=== PATIENT | female | born 1985 | race Caucasian/White ===

== ENCOUNTER → 2021-04-20 13:16 | Outpatient (CLI) | payer BC, SELFPAY ==
--- NOTE | 2021-04-20 13:20 | CT_ITS ---
PROCEDURE: CT ABDOMEN WO CON CLINICAL HISTORY: UMBILICAL HERNIA W/O OBSTUCTION OR GANGRENE COMPARISON: No exams were available for comparison TECHNIQUE: Axial images obtained with sagittal and coronal reformats. All CT scans at the facility use one or more dose reduction, viz: automated exposure control, ma/kV adjustment per patient size (including targeted exams where dose is matched to indication, i.e. head), or iterative reconstruction technique. FINDINGS: Lung bases are clear. The liver, gallbladder, spleen, adrenal glands, and pancreas have an unremarkable appearance. There is a 4 mm nonobstructing stone in the lower pole of the right kidney. The left kidney has an unremarkable appearance. No renal or ureteral calculi. Unremarkable appearing pancreas. Fundus of the uterus is prominent. The entire uterus is not visualized as the study does not include the pelvis. There is a small umbilical hernia containing fat. The orifice of the hernia measures 14 mm in with. There is some minimal stranding of the fat within the hernia. IMPRESSION: Small umbilical hernia containing fat. Right nephrolithiasis Dictated by: José Wallis MD 04/20/2021 17:52 José Wallis MD in OV 04/20/2021 17:52
== END ==
PROVIDERS: PCP Family Medicine; Visit Provider Nurse Practitioner
DX: K42.9 Umbilical hernia without obstruction or gangrene (principal)
CPT/HCPCS: 74150

== ENCOUNTER → 2021-05-27 11:32 | Outpatient (CLI) | payer BC, SELFPAY ==
[2021-05-27 12:25] LABS: Basophils # 0.1 K/mm3 (0-0.2); Basophils % 0.7 % (0.1-2.0); Eosinophils # 0.1 K/mm3 (0.0-0.4); Hematocrit 39.9 % (37.0-47.0); Hemoglobin 11.8 g/dL (12.2-16.2); Lymphocytes # 2.3 K/mm3 (0.7-4.5); Lymphocytes % 34.8 % (10-50); Mean Corpuscular HGB Conc 29.6 g/dL (31.8-35.4); Mean Corpuscular Hemoglobin 23.5 pg (27.0-31.2); Mean Corpuscular Volume 79.4 fl (81-99); Mean Platelet Volume 7.4 fl (7.4-10.4); Monocytes # 0.3 K/mm3 (0.1-1.0); Monocytes % 3.9 % (1.7-9.3); Neutrophils % 58.7 % (37.0-80.0); Platelet Count 454 K/mm3 (142-424); Red Blood Count 5.02 M/mm3 (4.20-5.40); Red Cell Distribution Width 16.4 % (11.5-17.5); White Blood Count 6.7 K/mm3 (4.8-10.8)
[2021-05-27 13:44] LABS: Chloride 106 mmol/L (98-107); Potassium 5.5 mmoL/L (3.5-5.1); Sodium 140 mmol/L (136-145)
[2021-05-27 13:47] LABS: Anion Gap 17.5 mEq/L (5-15); Blood Urea Nitrogen 11 mg/dl (7-17); Carbon Dioxide 22 mmol/L (22.0-30.0); Estimated Glomerular Filt Rate 64 ml/min (>60); GFR (African American) 77 ML/MIN (>60); Glucose 97 mg/dl (74-100)
== END ==
PROVIDERS: Visit Provider Surgery
DX: Z01.812 Encounter for preprocedural laboratory examination (principal); Z11.52 Encounter for screening for COVID-19; U07.1 COVID-19; K42.9 Umbilical hernia without obstruction or gangrene
CPT/HCPCS: 36415; 80048; 85025; C9803; U0003; U0005

== ENCOUNTER 2021-06-20 06:02 | Day surgery (SDC) | payer BC, SELFPAY ==
[2021-05-25 12:48] VITALS: BMI 27.4
[2021-06-16 10:49] VITALS: BMI 27.4
[2021-06-20] VITALS (12 sets, daily range): BP systolic 135–153; BP diastolic 81–102; PULSE 86–103; RESP 12–18; TEMP 36.6–43; O2SAT 90–96
[2021-06-20 07:00] LABS: Urine Pregnancy, HCG Qual. Negative (Negative)
--- NOTE | 2021-06-20 07:12 | HMH.GSHP ---
HPI HPI: Patient is a 35-year-old female referred for umbilical hernia. Patient recently had been and noted umbilical protrusion during her . She unfortunately had miscarriage at 8 months. She had been diagnosed with umbilical hernia during this . She had seen Mercedez Hodgson at the [facility] department and was diagnosed with a hernia after she had undergone CT scan of the abdomen and pelvis which revealed findings of umbilical hernia. Defect measured approximately 14 mm. She would like to pursue repair. She does have some mild epigastric discomfort from the hernia. Of note, she had some dental issues recently arise and is apparently undergoing tooth extraction with ultimate implant placement. [facility] History Medical History: Reports:: Anxiety, Depression Denies:: Cancer, Diabetes Mellitus Type 1, Diabetes Mellitus Type 2, Internal Pacemaker, MRSA, Seizures *Have you ever received a pneumonia vaccine?: No *Have you received a flu vaccine this season?: No Other Medical History: Denies: Blood Transfusion Reaction Laterality Cases: Bilateral: Tonsillectomy Other Surgeries: Yes: Other (oral sx, stents for kidney stones, Left breast mass removed). No: Pacemaker Amputation: No Fractures: No - *Social History Smoking Status: Current every day smoker Alcohol Intake: never Alcohol Intake Frequency:: holidays/special occasions only *Occupational Status:: employed Housing: house Household Members: family *Travel in the last 8 weeks: None - Psychiatric History Pschychiatric History:: Reports:: Anxiety, Depression Family Hx:: No significant family history Review of Systems - Review of Systems Review of systems:: pertinent systems reviewed and negative unless documented below Meds Home Medications Medication Instructions Recorded Confirmed Type Venlafaxine HCl [Effexor XR 75mg 75 mg PO DAILY 02/24/18 06/16/21 History capsule] dextroamphetamine-amphetamine ER 20 mg PO DAILY cap 05/05/21 06/16/21 History 20 mg 24hr capsule,extend release glycopyrrolate 2 mg tablet 2 mg PO QID tab 05/05/21 06/16/21 History loratadine 10 mg tablet 10 mg PO DAILY 05/05/21 06/16/21 History omeprazole 40 mg capsule,delayed 40 mg PO DAILY cap 05/05/21 06/16/21 History release Ciprofloxacin HCl [Ciprofloxacin 250 mg PO BID 06/20/21 06/20/21 History 250mg Tab] lamoTRIgine [Lamictal] 5 mg PO DAILY 06/20/21 06/20/21 History Allergies Allergy/AdvReac Type Severity Reaction Status Date / Time Penicillins Allergy Intermediate Verified 06/16/21 10:49 Exam Vital signs and Labs for Last 24 Hours: Temp Pulse Resp BP Pulse Ox 97.8 F 90 18 135/85 96 06/20/21 06:26 06/20/21 06:26 06/20/21 06:26 06/20/21 06:26 06/20/21 06:26 Laboratory Results - last 24 hr 06/20/21 06:10: Urine HCG, Qual Negative - Constitutional no acute distress - *Routine HEENT Exam Head: Present: normocephalic Eye: Present: EOMI, PERRL ENT: Present: mucous membranes moist - *Routine Neck Exam Present: supple. Absent: lymphadenopathy - *Routine Respiratory Exam Present: CTA bilaterally - *Routine Cardiovascular Exam Present: RRR - *Routine Abdominal Exam Present: soft, normoactive bowel sounds. Absent: tenderness Comments: He has a moderate sized reducible soft umbilical hernia - *Routine Rectal Exam Rectal:: deferred - *Routine Genitalia Exam Genitalia:: deferred - *Routine Extremities Exam Absent: cyanosis, clubbing, edema - *Routine Skin Exam Present: warm. Absent: rash - *Routine Neurological Exam Present: alert, oriented X3 Results - Results Lab Results Last 24 Hours:: Laboratory Results - last 24 hr 06/20/21 06:10: Urine HCG, Qual Negative Assessment and Plan - Assessment and plan all Dx Assessment and Plan for all problems:: Plan for open umbilical hernia repair
--- NOTE | 2021-06-20 07:42 | P.PN_ITS ---
[facility] Anesthesia Checklist - Structural Data Admitted From: Home Planned Operative Procedure/s: umbilical hernia repair Consent for Planned Operative Procedure(s) Verified: Yes - Additional verifications Anesthesia Reactions: No (nausea) Hx Blood Transfusions: No Blood Transfusion Reaction: No - Airway Assessment C-Spine Mobility Assessed: Yes TMJ Mobility Assessed: Yes Dentition: Good Dentition - Neurological Assessment Level of Consciousness: Awake, Alert, Appropriate - Anesthesia Plan Anesthesia Risk discussed: Yes Anesthesia Plan: Verified ASA Class: II Anesthesia Type: General [facility] History I have reviewed the patient's past medical history: Yes Medical History: Reports:: Anxiety, Depression Denies:: Cancer, Diabetes Mellitus Type 1, Diabetes Mellitus Type 2, Internal Pacemaker, MRSA, Seizures *Have you ever received a pneumonia vaccine?: No *Have you received a flu vaccine this season?: No Other Medical History: Denies: Blood Transfusion Reaction Anesthesia experience/problems:: none Laterality Cases: Bilateral: Tonsillectomy Other Surgeries: Yes: Other (oral sx, stents for kidney stones, Left breast mass removed). No: Pacemaker Amputation: No Fractures: No - *Social History Smoking Status: Current every day smoker Alcohol Intake: never Alcohol Intake Frequency:: holidays/special occasions only Substance Use Type: denies use *Occupational Status:: employed Housing: house Household Members: family *Travel in the last 8 weeks: None - Psychiatric History Pschychiatric History:: Reports:: Anxiety, Depression Family Hx:: No significant family history
--- NOTE | 2021-06-20 08:36 | HMH.OPNOTE ---
Date of procedure: 06/20/21 Pre-op Diagnosis:: Umbilical hernia Post-op Diagnosis:: Same Procedure performed:: Open repair of umbilical hernia with placement of medium sized (6.4 cm) Bard ventral Ej mesh Surgeon:: Blaze Walton MD BENDING SHED WORKER:: Sung Morillo Anesthesia: LMA Estimated blood loss (mL): 5 Clinical Note:: Patient is a 35-year-old female referred for umbilical hernia. Patient recently had been and noted umbilical protrusion during her . She unfortunately had miscarriage at 8 months. She had been diagnosed with umbilical hernia during this . She had seen Mercedez Hodgson at the [facility] department and was diagnosed with a hernia after she had undergone CT scan of the abdomen and pelvis which revealed findings of umbilical hernia. Defect measured approximately 14 mm. She would like to pursue repair. She does have some mild epigastric discomfort from the hernia. In the preoperative area patient asked about excising a skin mole immediately below the umbilicus. Operative findings:: She had a small to moderate defect with chronically incarcerated omentum Operative note:: Patient was taken to the operating room. She was positioned in supine position. General anesthesia was induced via LMA. Abdomen was prepped and draped in the standard surgical fashion. Subumbilical incision was made. Dissection was carried down through subcutaneous tissues to the herniated contents. She had chronically incarcerated omentum. This was dissected free from the umbilical subdermis. It was unable to be reduced. Ultimately the herniated contents were freed from the fascial edges using electrocautery and Metzenbaum dissection. Herniated contents were clamped with a hemostat and excised and ligated with 2-0 Vicryl. This was sent off as specimen labeled the herniated contents. Additional excision of herniated fatty tissues were excised ultimately to allow for mesh placement. Medium sized Bard Ventralex mesh measuring 6.4 cm circular was rolled and inserted into the preperitoneal space. Is oriented in the posterior fascial location to cover the defect. The tails of the mesh were sutured superiorly and inferiorly to the fascial edges with 2-0 Prolene sutures. The tails were then cut flush with the fascia. Fascia was closed over the mesh with interrupted 0 Ethibond suture. Local anesthetic was infiltrated. Umbilical subdural S was reapproximated to the underlying fascia with a couple of 2-0 Vicryl sutures. Subdermal tissues were reapproximated with several interrupted 2-0 Vicryl. Skin was closed with Monocryl in a subcuticular fashion. She did have a skin lesion immediately inferior to the incision. This was excised sharply. Small incision was closed with a couple of 5-0 plain gut. Clean dry sterile dressing was applied. Condition: stable Disposition: PACU Specimens:: Herniated contents Skin lesion Complications:: None immediately apparent
--- NOTE | 2021-06-20 08:39 | HMH.ANESI ---
[facility] Anesthesia Record Part I Intake, IV Amount: 1,500 Estimated blood loss (mL): 0 Urine output (mL): 0 Blood Pressure: 142/81 SaO2: 94 Pulse Rate: 88 Respiratory Rate: 12 Temperature: 98.1 F Patient is:: Awake, Stable Stable to PACU at:: 08:35
--- NOTE | 2021-06-20 09:19 | SUR.PHASEI ---
0916- detailed report given to salty de at this time
--- NOTE | 2021-06-21 08:29 | P.PN_ITS ---
[facility] Anesthesia Record Part II Discharge Time: 09:05 Destination: [facility] PACU nurse assessment reviewed?: Yes Patient Condition:: Good Anesthesia Complications:: None Swallowing reflex intact?: Yes Cyanosis?: No Blood Pressure: 145/92 Pulse Rate: 90 Temperature: 98.1 F Mental Status: Alert & Oriented Pain level:: 3 Nausea and/or vomitting:: None Intake, IV Amount: 1,500
[2021-06-21 08:30] VITALS: BP 145/92; PULSE 90; TEMP 36.7
== END 2021-06-20 10:00 | disposition home or self-care (01) ==
LOC: OR 06:03
PROVIDERS: PCP Family Medicine; Visit Provider Surgery
PROC: (CPT 49587; principal; 2021-06-20 07:30)
DX: K42.0 Umbilical hernia with obstruction, without gangrene (principal); F41.9 Anxiety disorder, unspecified; F32.9 Major depressive disorder, single episode, unspecified; Z90.12 Acquired absence of left breast and nipple; Z72.0 Tobacco use; Z88.0 Allergy status to penicillin; Z79.899 Other long term (current) drug therapy
CPT/HCPCS: 49587; 81025; 96374; C1781; J2405

== ENCOUNTER → 2022-05-01 12:06 | Outpatient (CLI) | payer BC, SELFPAY | PROVIDERS: PCP Family Medicine; Visit Provider Nurse Practitioner | DX: R06.00 Dyspnea, unspecified (principal); R07.9 Chest pain, unspecified; R00.2 Palpitations; R53.83 Other fatigue; R60.0 Localized edema; R94.31 Abnormal electrocardiogram [ECG] [EKG]; Z82.49 Family history of ischemic heart disease and other diseases of the circulatory system | CPT/HCPCS: 93270 ==

== ENCOUNTER → 2022-05-17 07:36 | Outpatient (CLI) | payer BC, SELFPAY ==
--- NOTE | 2022-05-17 | CA_ITS ---
APPROVED REPORT Exam: Pharmacologic Technologist: Senait Gomez, Ht: 5 ft 4 in Wt: 168 lbs BSA: 1.82 m2 HR: 80 bpm BP: 132/88 mmHg Rhythm: NSR,LBBB Medical History Medications: Omeprazole,,,,, LoraTADINE,,,,, GlYcopyrrolate,,,,, Allergies: PCN Cardiac Risk Factors: FHX of CAD, Smoking Stress Test Details Test: LEXISCAN HR Resting HR: 87 bpm Max Heart Rate (APMHR): 186.803505 bpm Max HR Achieved: 114 bpm Target HR (85% APMHR): 158.477600 bpm % of APMHR: 61.29 Recovery HR: 98 bpm BP Resting BP: 132.0/88.0 mmHg Max BP: 147.0/73.0 mmHg Recovery BP: 140.0/81.0 mmHg ECG Resting ECG: NSR,LBBB Clinical Exercise duration: 04:03 min Highest Stage Achieved: Exercise capacity: 1.0 METs Stress ECG Conclusion SWITCHED FROM EXERCISE DUE TO LBBB. DURING INFUSION PATIENT HAD SOA,HEAD DISCOMFORT,MILD STOMACH DISCOMFORT AND MILD CHEST PRESSURE. NO ARRHYTHMIAS/ECTOPY. EXAGGERATION OF BASELINE ABNORMALITITES. NON-DIAGNOSTIC LEXISCAN. MYOVIEW IMAGES REPORTED SEPARATELY Test Summary REST . . . . . . . Sitting REST 01:36 . . 87 . 132/ 88 . . Stage 1 . . . . . . . Myoview Injected Stage 1 01:00 . . 108 . . . . Stage 2 01:00 . . 112 . 147/ 73 . . Stage 3 01:00 . . 105 . 130/ 76 . . Stage 4 01:00 . . 101 . . . . Stage 4 01:03 . . 101 . . . Stop exercise at 04:03 RECOVERY 01:00 . . 103 . . . . RECOVERY 02:00 . . 94 . 140/ 81 . . RECOVERY 03:00 . . 93 . 133/ 83 . . RECOVERY 03:20 . . 91 . 133/ 83 . . Electronically signed by : Rob Haynes MD 05/18/2022 09:39:19
--- NOTE | 2022-05-17 07:37 | NM_ITS ---
APPROVED REPORT Exam: Nuclear Stress Test Indication: chest pain..short of breath..fatigue Patient Location: Outpatient Stress Tech: Yadi Patricia HI Tech:LORI Mcmahon RT(R)(N) Ht: 5 ft 4 in Wt: 170 lbs Bra Size: 32c HR: 87 bpm BP: 132/88 mmHg BSA: 1.83 m2 TID: 0.95 BMI: 29.1 History: chest pain..short of breath..fatigue Procedure: Patient received a 0.4 mg of intravenous Lexiscan, resting heart rate 87 bpm, resting blood pressure 132/88 mmHg, with Lexiscan maximum heart rate achived was 114 bpm which is Less than 85 % of the maximum predicted heart rate and blood pressure was 147/73 mmHg. With Lexiscan, patient denied any complaint of chest pain. Electrocardiogram Resting electrocardiogram shows sinus rhythm with a bundle branch block, with Lexiscan there is less than 1.[address] segment depression noted from the baseline EKG. The EKG portion of the Lexiscan is nondiagnostic. Cardiac Stress and Resting SPECT Images: Cardiac Stress and Resting SPECT images were obtained using technetium 99m Myoview 31.7 mCi stress and 10.77 mCi at rest. Gated SPECT for analysis of segmental wall motion and calculation of the ejection fraction also done. Cardiac stress and rest SPECT images show a fixed defect anteroseptally with abnormal septal motion is likely secondary to left bundle branch block, no reversible ischemia seen. Computer derived ejection fraction is 44% with abnormal septal motion. Right ventricle is normal size and contractility. Conclusion: 1. The EKG portion of the Lexiscan is nondiagnostic. 2. No scintigraphic evidence of reversible ischemia seen, a fixed defect anteroseptally is likely secondary to left bundle branch block, computer derived ejection fraction is 44% with abnormal septal motion, right ventricle is normal size and contractility. Electronically signed by : Rob Haynes MD 05/18/2022 09:52:01
--- NOTE | 2022-05-17 07:53 | CA_ITS ---
APPROVED REPORT EXAM: Comprehensive 2D, Doppler, and color-flow Echocardiogram Programming Internship: Teresa Richardson, RCS, RVS Ht: 5 ft 4 in Wt: 168lbs BSA: 1.82 BP: 129/82 mmHg Indications: CP, Abn EKG, Smoker, IVDA, with demise, SOB, Fatigue 2D Dimensions LVDd 5.59 cm LVEF (Visual) 43.60 % LVDs 4.37 cm LA Volume 42.20 mL Aortic Root 2.90 cm LA Volume Index 23.875280 mL/m2 (M/F) 16-34 Left Atrium 3.24 cm LVOT 1.92 cm (M/F) 1.5-2.5 M-Mode Dimensions RVDd 2.22 cm (0.9-2.6) LA Diam 3.55 cm (1.9-4.0) LVDd 5.79 cm (3.5-5.7) Ao Diam 2.73 cm (2.0-3.7) LVDs 4.63 cm (3.5-5.7) IVSd 1.03 cm (0.6-1.1) PWd 0.78 cm (0.6-1.1) EF (Teich) 35.40% EPSs 1.32 cm FS 17.20% EDV (Teich) 153.00 mL TAPSE 1.33 (<1.7) ESV (Teich) 98.80 mL LV Diastology E Decel Time 180.00 (160-240 msec) E/A Ratio 0.89 MED E' 9.10 (< 7 cm/sec) MED A' 5.40 cm/s E'/MED E' Ratio 7.47 (>14) LAT E' 9.30 (<10 cm/sec) LAT A' 6.00 cm/s E/LAT E' Ratio 7.31 (>14) Aortic Valve LVOT Max 91.00 (70-110 cm/s) LVOT VTI 19.20 cm AoV Peak Conrad. 113.00 (50-130 cm/s) AO Peak GR. 5.10 mmHg AO Mean GR. 2.60 (<5 mmHg) AO VTI 19.19 (18-25 cm) ROEL (VTI) 2.90 (2.5-4.5 cm2) Mitral Valve MV A Velocity 76.00 (40-130 cm/s) E/A Ratio 0.89 MV Decel. Time 180.00 (160-240 ms) MV Mean Gr. 1.50 (<2mmHg) MV PHT 53.00 ms Pulmonary Valve PV Peak Velocity 88.00 (50-150 cm/s) Left Ventricle Left atrium is mildly enlarged, left ventricle is normal size, mild concentric left ventricular hypertrophy, estimated ejection fraction 40%, there is abnormal septal motion. Grade 1 diastolic dysfunction seen without tissue Doppler evidence of raise left atrial pressure. Right Ventricle Right atrium and right ventricle are normal size and contractility. Aortic Valve Aortic valve is minimally thickened and fibrosed there is no aortic stenosis or aortic insufficiency. Mitral Valve Mitral valve is grossly normal, there is trace mitral regurgitation. Tricuspid Valve Tricuspid valve is grossly normal, there is trace tricuspid regurgitation tricuspid rotation (inadequate for calculation of the right ventricular systolic pressure. Pulmonic Valve Pulmonic valve is poorly visualized. Great Vessels Aortic root is normal size. Inferior vena cava is normal size with normal inspiratory collapse. Pericardium No significant pericardial effusion noted. Conclusion 1. Mildly enlarged left atrium, normal left ventricular size, mild concentric left ventricular hypertrophy, estimated ejection fraction 40% with abnormal septal motion, grade 1 diastolic dysfunction seen without tissue Doppler evidence of raise left atrial pressure. 2. Trace mitral and tricuspid regurgitation. 3. No significant pericardial effusion. 4. Inferior vena cava is normal 7 normal inspiratory collapse. Electronically signed by : Rob Haynes MD 05/18/2022 10:20:28
== END ==
PROVIDERS: PCP Family Medicine; Visit Provider Internal Medicine
DX: R06.00 Dyspnea, unspecified (principal); R07.9 Chest pain, unspecified; K42.9 Umbilical hernia without obstruction or gangrene; N23 Unspecified renal colic; R53.83 Other fatigue; R60.0 Localized edema; R94.31 Abnormal electrocardiogram [ECG] [EKG]; Z82.49 Family history of ischemic heart disease and other diseases of the circulatory system
CPT/HCPCS: 78452; 93017; 93306; A9502; J2785

== ENCOUNTER → 2022-05-30 09:53 | Outpatient (CLI) | payer BC, SELFPAY ==
[2022-05-30 10:50] LABS: Basophils # 0.1 K/mm3 (0-0.2); Basophils % 1.2 % (0.1-2.0); Eosinophils # 0.2 K/mm3 (0.0-0.4); Eosinophils % 2.8 % (0.1-12.0); Hematocrit 43.1 % (37.0-47.0); Lymphocytes # 1.8 K/mm3 (0.7-4.5); Mean Corpuscular HGB Conc 32.6 g/dL (31.8-35.4); Mean Corpuscular Hemoglobin 28.5 pg (27.0-31.2); Mean Corpuscular Volume 87.3 fl (81-99); Mean Platelet Volume 8.4 fl (7.4-10.4); Monocytes # 0.3 K/mm3 (0.1-1.0); Monocytes % 5.1 % (1.7-9.3); Neutrophils # 3.2 K/mm3 (1.8-7.8); Neutrophils % 57.8 % (37.0-80.0); Platelet Count 324 K/mm3 (142-424); Red Blood Count 4.93 M/mm3 (4.20-5.40); Red Cell Distribution Width 12.3 % (11.5-17.5); White Blood Count 5.5 K/mm3 (4.8-10.8)
[2022-05-30 12:13] LABS: Anion Gap 13.1 mEq/L (5-15); Blood Urea Nitrogen 14 mg/dl (7-17); Carbon Dioxide 26 mmol/L (22.0-30.0); Chloride 105 mmol/L (98-107); Estimated Glomerular Filt Rate 72 ml/min (>60); GFR (African American) 87 ML/MIN (>60); Glucose 90 mg/dl (74-100); Potassium 4.1 mmoL/L (3.5-5.1); Sodium 140 mmol/L (136-145)
== END ==
PROVIDERS: PCP Family Medicine; Visit Provider Physician Assistant
DX: R06.00 Dyspnea, unspecified (principal); I42.9 Cardiomyopathy, unspecified; R53.83 Other fatigue; R60.0 Localized edema; I10 Essential (primary) hypertension; R93.1 Abnormal findings on diagnostic imaging of heart and coronary circulation; R94.31 Abnormal electrocardiogram [ECG] [EKG]; R94.39 Abnormal result of other cardiovascular function study; Z82.49 Family history of ischemic heart disease and other diseases of the circulatory system; Z01.812 Encounter for preprocedural laboratory examination; Z20.822 Contact with and (suspected) exposure to COVID-19
CPT/HCPCS: 36415; 80048; 85025; C9803; U0003; U0005

== ENCOUNTER → 2022-06-04 14:46 | Outpatient (CLI) | payer BC, SELFPAY ==
--- NOTE | 2022-06-04 15:41 | PC.NURSE ---
PFT completed without complications. Albuterol 0.083% given via HHN, per protocol, Pt tolerated tx well.
== END ==
PROVIDERS: PCP Family Medicine; Visit Provider Physician Assistant
DX: R06.09 Other forms of dyspnea (principal)
CPT/HCPCS: 94060; 94726; 94729

== ENCOUNTER → 2022-06-05 13:09 | Outpatient (CLI) | payer BC, SELFPAY ==
[2022-06-05 13:22] LABS: MANUAL DIFFERENTIAL MANUAL DIFFERENTIAL (MANUAL DIFF)
[2022-06-05 14:21] LABS: Basophils # 0.2 K/mm3 (0-0.2); Basophils % 2.3 % (0.1-2.0); Eosinophils # 0.2 K/mm3 (0.0-0.4); Eosinophils % 2.9 % (0.1-12.0); Hemoglobin 14.2 g/dL (12.2-16.2); Lymphocytes % 27.9 % (10-50); Mean Corpuscular HGB Conc 32.3 g/dL (31.8-35.4); Mean Corpuscular Hemoglobin 28.5 pg (27.0-31.2); Mean Corpuscular Volume 88.4 fl (81-99); Mean Platelet Volume 8.4 fl (7.4-10.4); Monocytes # 0.3 K/mm3 (0.1-1.0); Monocytes % 4.3 % (1.7-9.3); Neutrophils # 4.4 K/mm3 (1.8-7.8); Neutrophils % 62.6 % (37.0-80.0); Platelet Count 341 K/mm3 (142-424); Red Blood Count 4.98 M/mm3 (4.20-5.40); Red Cell Distribution Width 12.4 % (11.5-17.5); White Blood Count 7.1 K/mm3 (4.8-10.8)
[2022-06-05 16:32] LABS: Anion Gap 14.2 mEq/L (5-15); Blood Urea Nitrogen 9 mg/dl (7-17); Calcium 8.9 mg/dl (8.4-10.2); Carbon Dioxide 27 mmol/L (22.0-30.0); Chloride 101 mmol/L (98-107); Estimated Glomerular Filt Rate 96 ml/min (>60); GFR (African American) 116 ML/MIN (>60); Glucose 95 mg/dl (74-100); Potassium 4.2 mmoL/L (3.5-5.1); Sodium 138 mmol/L (136-145)
[2022-06-05 18:30] LABS: Eosinophils % 2 % (0-3); Lymphocytes % 22 % (10-50); Monocytes % 2 % (2-9); Neutrophils % 74 % (42-76); Total Cells Counted 100
[2022-06-05 18:31] LABS: Ovalocytes 1+; Platelet Estimate Normal
== END ==
PROVIDERS: PCP Family Medicine; Visit Provider Internal Medicine
DX: Z01.812 Encounter for preprocedural laboratory examination (principal); Z20.822 Contact with and (suspected) exposure to COVID-19; R06.09 Other forms of dyspnea
CPT/HCPCS: 36415; 80048; 85007; 85014; 85018; 85048; 85049; C9803; U0003; U0005

== ENCOUNTER 2022-06-06 08:28 | Day surgery (SDC) | payer BC, SELFPAY ==
[2022-06-06] VITALS (12 sets, daily range): BP systolic 109–136; BP diastolic 65–96; PULSE 56–74; RESP 16–20; TEMP 36.9; O2SAT 95–100; BMI 27.8
--- NOTE | 2022-06-06 07:14 | IR_ITS ---
APPROVED REPORT Patient Location: Outpatient Take Out Waiter: LORI Peña RT (R) PROCEDURES Left heart catheterization Left ventriculogram Selective coronary angiogram INDICATION New onset cardiomyopathy ejection fraction less than 40% Informed consent was obtained prior to the procedure. COMPLICATIONS none Estimated Blood Loss: less than 10 ml TECHNIQUE One percent lidocaine used to anesthetize the right anterior aspect of the wrist. The right radial artery was accessed via the Seldinger technique. A 6 Macedonian sheath was placed in the right radial artery. 2.5 mg of verapamil, 800 mcg of nitroglycerin, 1mg Lidocaine and 5000 U Heparin were given through the arterial sheath. The papa catheter was also used to perform left heart catheterization, left ventriculogram and selective coronary angiogram. At the end of the procedure the sheath was removed good hemostasis was achieved using Traclet band, patient was transferred to the postop holding area in stable condition. ANGIOGRAPHIC RESULTS The left main artery Normal The left anterior descending artery Normal The circumflex artery Normal The right coronary artery Dominant normal The EVERETT ventriculogram reveals Dilated ventricle ejection fraction 35% The left ventricular end-diastolic pressure 10 to 15 mmHg IMPRESSION Normal coronary arteries Dilated ventricle with reduced ejection fraction Borderline normal LVEDP PLAN 1. Recommend cardiac MRI at [facility] to better evaluate etiology of cardiomyopathy 2. Standard therapy for systolic heart failure Electronically signed by : Braulio Pradhan MD 06/06/2022 10:14:37
[2022-06-06 10:55] LABS: HCG Qualitative, Serum Negative (Negative)
== END 2022-06-06 13:01 | disposition home or self-care (01) ==
LOC: CATHLAB 08:29
PROVIDERS: PCP Family Medicine; Visit Provider Internal Medicine
DX: I42.9 Cardiomyopathy, unspecified (principal); R06.00 Dyspnea, unspecified; R53.83 Other fatigue; R93.1 Abnormal findings on diagnostic imaging of heart and coronary circulation; R94.31 Abnormal electrocardiogram [ECG] [EKG]; R94.39 Abnormal result of other cardiovascular function study; Z82.49 Family history of ischemic heart disease and other diseases of the circulatory system
CPT/HCPCS: 84703; 93458; 99152; C1725; C1769; J1644; Q9967

== ENCOUNTER → 2023-09-13 08:28 | Outpatient (CLI) | payer OTHER, SELFPAY | LOC: LAB.DROPOF 09-14 08:29 | PROVIDERS: PCP Nurse Practitioner Family; Visit Provider Nurse Practitioner Family | DX: R69 Illness, unspecified (principal); J02.9 Acute pharyngitis, unspecified | CPT/HCPCS: 87070 ==

== ENCOUNTER 2023-11-27 09:58 | Observation (INO) | payer OTHER, SELFPAY ==
[2023-11-27] VITALS (14 sets, daily range): BP systolic 131–161; BP diastolic 72–98; PULSE 55–110; RESP 13–26; TEMP 36.4–36.6; O2SAT 92–99; BMI 37.8; BMI 38.5
--- NOTE | 2023-11-27 10:02 | XR_ITS ---
FINAL REPORT CLINICAL HISTORY: soa, CHF FINDINGS: SINGLE-VIEW CHEST The heart size is normal. The mediastinum is normal. There is mild bibasilar atelectasis or pneumonia. There is no pneumothorax. IMPRESSION: Mild bibasilar atelectasis or pneumonia. Reviewed, Interpreted and Dictated by Blaze Rajput III, MD Transcribed by Fiordaliza Monroy Authenticated and [facility]
--- NOTE | 2023-11-27 10:08 | PC.NURSE ---
DR CEDILLO AT BEDSIDE
[2023-11-27 10:17] LABS: Basophils # 0.1 K/mm3 (0-0.2); Basophils % 0.7 % (0.1-2.0); Eosinophils # 0.2 K/mm3 (0.0-0.4); Eosinophils % 2.5 % (0.1-12.0); Hematocrit 33.6 % (37.0-47.0); Hemoglobin 10.7 g/dL (12.2-16.2); Lymphocytes # 1.9 K/mm3 (0.7-4.5); Lymphocytes % 26.9 % (10-50); Mean Corpuscular Hemoglobin 24.9 pg (27.0-31.2); Monocytes # 0.3 K/mm3 (0.1-1.0); Monocytes % 3.9 % (1.7-9.3); Neutrophils # 4.6 K/mm3 (1.8-7.8); Platelet Count 344 K/mm3 (142-424); Red Blood Count 4.31 M/mm3 (4.20-5.40); Red Cell Distribution Width 15.9 % (11.5-17.5)
--- NOTE | 2023-11-27 10:23 | PC.NURSE ---
XR AT BEDSIDE
[2023-11-27 10:24] LABS: Alanine Aminotransferase 38 U/L (12-78); Albumin Level 3.4 g/dl (3.5-5.0); Albumin/Globulin Ratio 1.1 (1.1-1.8); Alkaline Phosphatase 117 U/L (38-126); Anion Gap 10.6 mEq/L (5-15); Aspartate Amino Transferase 35 U/L (14-36); Bilirubin,Total 0.3 mg/dl (0.2-1.3); Blood Urea Nitrogen 14 mg/dl (7-17); Calcium 8.8 mg/dl (8.4-10.2); Carbon Dioxide 23 mmol/L (22.0-30.0); Chloride 109 mmol/L (98-107); Creatinine Clearance Estimated 124 mL/min (50-200); Estimated Glomerular Filt Rate 63 ml/min (>60); GFR (African American) 76 ML/MIN (>60); Glucose 94 mg/dl (74-100); Magnesium 1.9 mg/dl (1.6-2.3); Potassium 4.6 mmoL/L (3.5-5.1); Sodium 138 mmol/L (136-145); Total Protein,Serum 6.4 g/dl (6.3-8.2)
--- NOTE | 2023-11-27 10:32 | ECG_ITS ---
APPROVED REPORT Exam: Resting ECG HR:82 bpm ECG Measurements Heart Rate 82 AXES HI 148 P 29 QRSd 147 QRS -31 QT 422 T 63 QTc 460 Conclusion SINUS RHYTHM LEFT AXIS DEVIATION [QRS AXIS < -30] LEFT BUNDLE BRANCH BLOCK Electronically signed by : ANNETTE CEDILLO, 11/27/2023 15:53:09
[2023-11-27] MEDS: ASPIRIN 81MG CHEWABLE TABLET 324 MG PO (10:35)
[2023-11-27 10:36] LABS: NT Pro Brain Natriuretic Pep. 2040 pg/mL (0-125)
--- NOTE | 2023-11-27 10:36 | HMH.EDCP ---
Discharge Plan Disposition Patient Disposition: Admitted Chief Complaint: Shortness of Breath/Dyspnea Prescriptions Prescriptions: No Action trazodone 50 mg tablet 50 mg PO HS hydroxyzine HCl 50 mg tablet 100 mg PO TID Patient Comments: TAKE 1 TO 2 TABLETS 3 TIMES EACH DAY NEEDED FOR ANXIETY buspirone 30 mg tablet 30 mg PO BID Patient Comments: TAKE 1 TABLET 2 TIMES EACH DAY gabapentin 300 mg capsule 600 mg PO TID Patient Comments: TAKE 2 CAPSULES 3 TIMES EACH DAY lorazepam 1 mg tablet 1 mg PO TID Auvelity 45-105 mg tablet, IR and ER, biphasic 2 tab PO DAILY Patient Comments: TAKE 2 TABLETS EVERY DAY glycopyrrolate 2 mg tablet 2 mg PO QID loratadine [Allergy Relief (loratadine)] 10 mg tablet 10 mg PO DAILY omeprazole 40 mg capsule,delayed release(DR/EC) 40 mg PO DAILY hydroxyzine HCl 50 mg tablet See Rx Instructions .ROUTE .COMPLEX Patient Comments: TAKE 1 TO 2 TABLETS 3 TIMES EACH DAY NEEDED FOR ANXIETY Rx Instructions: TAKE 1 TO 2 TABLETS 3 TIMES EACH DAY NEEDED FOR ANXIETY ferrous sulfate [FeroSul] 325 mg (65 mg iron) tablet 325 mg PO DAILY Patient Comments: TAKE 1 TABLET 1 TIME EACH DAY WITH BREAKFAST docusate sodium 100 mg capsule 100 mg PO BID Patient Comments: TAKE 1 CAPSULE 2 TIMES EACH DAY ibuprofen 600 mg tablet 600 mg PO QIDP PRN (Reason: Pain (Scale Score 4-6)) Patient Comments: TAKE 1 TABLET EVERY 6 HOURS NEEDED FOR MILD PAIN Accrufer 30 mg capsule 30 mg PO DAILY Patient Comments: TAKE 1 CAPSULE BY MOUTH ONCE DAILY Referrals Follow up/Referrals: Sandro Sebastian [Primary Care Provider] - See instructions Clinical Impressions Clinical Impression: cardiomyopathy Discharge ED Provider: Octavio Parra General Chief Complaint: Shortness of Breath/Dyspnea Stated Complaint: SOA Time Seen by Provider: 11/27/23 09:59 Mode of Arrival: Family Vehicle Source of Information: Patient, Spouse and Medical Record Limitations: No Limitations Description of Symptoms (Recalled from ER Triage Doc. by RN): Pt c/o SOA, dyspnea, and panic episode . States she had an induced vaginal delivery < 1 wk ago at [facility] in [place]. States she has been dreaming I can't breathe and I wake up gasping . States my has a video on his phone of me and its just really weird . She reports she had gestational diabetes and was told to stop her diabetic meds. This morning she did take Gabapentin, Ativan, Hydroxyzine, Auvelity, and Buspar. States when she got in the car to come to the ER she felt a lot better . Pt & her reports she has been wheezing in her sleep. History of Present Illness HPI narrative: This is a 37-year-old female with history of nonischemic cardiomyopathy, CHF, gestational diabetes with shortness of breath. Patient states that she had vaginal delivery less than a week ago in [place]. Since that time, she has had multiple dreams where she cannot breathe and states that she wakes up gasping. Her took videos of her and states that it looks like she is not breathing during these episodes. Patient had a history of QUIN in the past, but had her tonsils, adenoids, uvula removed for therapy and has not had any problems with it in years. She states that she had a panic attack this morning, 11/26 because she was concerned that she cannot breathe. She does have difficulty lying flat at baseline, unsure if this is gotten any worse. She states that on the way to the emergency department, symptoms improved, but she is still feeling mildly short of breath. Bilateral lower extremity swelling is a little worse than usual. Denies DVT or PE risk factors, history of clot, chest pain, nausea or vomiting. She has had a nonproductive cough and multiple sick contacts, but no other sick symptoms otherwise. Related Data Home Medications Medication Instructions Recorded Confirmed glycopyrrolate 2 mg tablet 2 mg PO QID . 05/05/21 11/27/23 loratadine 10 mg tablet (Allergy 10 mg PO DAILY allergies 05/05/21 11/27/23 Relief (loratadine)) omeprazole 40 mg capsule,delayed 40 mg PO DAILY GERD 05/05/21 11/27/23 release buspirone 30 mg tablet 30 mg PO BID 09/13/23 11/27/23 dextromethorphan IR 45 2 tab PO DAILY 09/13/23 11/27/23 mg-bupropion ER 105 mg biphasic tablet (Auvelity) gabapentin 300 mg capsule 600 mg PO TID 09/13/23 11/27/23 hydroxyzine HCl 50 mg tablet 100 mg PO TID 09/13/23 11/27/23 lorazepam 1 mg tablet 1 mg PO TID 09/13/23 11/27/23 trazodone 50 mg tablet 50 mg PO HS 09/13/23 11/27/23 docusate sodium 100 mg capsule 100 mg PO BID 11/27/23 11/27/23 ferric maltol 30 mg capsule 30 mg PO DAILY 11/27/23 11/27/23 (Accrufer) ferrous sulfate 325 mg (65 mg 325 mg PO DAILY 11/27/23 11/27/23 iron) tablet (FeroSul) hydroxyzine HCl 50 mg tablet See Rx Instructions .Route .COMPLEX 11/27/23 11/27/23 ibuprofen 600 mg tablet 600 mg PO QIDP PRN Pain (Scale 11/27/23 11/27/23 Score 4-6) Allergies Allergy/AdvReac Type Severity Reaction Status Date / Time Penicillins Allergy Intermediate Verified 10/02/23 11:11 [facility] Disclaimer: The information contained in this section may have been updated after the patient was seen, as this information can be updated by other users. Medical History (Updated 11/27/23 @ 12:29 by Octavio Parra MD) Diabetes mellitus Kidney stone Family history of ischemic heart disease (IHD) Umbilical hernia Surgical History (Updated 10/02/23 @ 11:39 by Julia Beltran) History of renal stent History of oral surgery History of breast biopsy Social History Smoking Status: Unknown if ever smoked alcohol intake: never substance use type: denies use current occupational status: employed Travel in the last 8 weeks: Inside the [place] household members: family housing: house current occupational exposures/hazards: No caffeine: Yes ROS Obtained: Yes All systems reviewed & no additional complaints except as documented Physical Exam General General appearance: alert Neck Neck exam: Present trachea midline Chest Chest inspection: Present normal inspection and symmetric chest wall rise Respiratory Respiratory exam: Present normal lung sounds bilaterally; Absent respiratory distress, wheezes, stridor, accessory muscle use or prolonged expiratory phase Cardiovascular Cardiovascular exam: Present regular rate and normal rhythm Extremities Exam Extremities exam: Absent edema Neurological Exam Neurological exam: Present alert, oriented X3 and CN II-XII intact Skin Skin exam: Present warm and dry; Absent cyanosis, diaphoresis or pallor HEART Score HEART Score HEART Score assessment performed?: Yes History (anamnesis): Moderately suspicious ECG: Non-specific disturbance Age: <45 years Risk factors: 1-2 risk factors Troponin: </= normal limit HEART Score: 3 Critical Care Critical Care Time Critical Care Time: Yes (CV) Attestation: On 11/27/23, the high probability of a clinically significant, sudden or life threatening deterioration of the following system(s) required my full and direct attention, intervention and personal management. The time I documented below is in addition to time spent performing reported procedures but includes the following listed in this critical care notation. Total Time Total Critical Care Time: 45 Medical Decision Making Medical Records Medical records reviewed: Yes I reviewed the patient's medical records. Jaime Inquiry Pt receiving controlled substance: No Jaime was queried for this patient: No Vital Signs Vital Signs: 11/27/23 09:59 11/27/23 10:45 11/27/23 11:00 Temperature 97.7 F Temperature Source Oral Pulse Rate 88 78 Pulse Rate [Right] 93 H Respiratory Rate 26 H 13 14 Blood Pressure 140/89 145/87 H Blood Pressure [Left Arm] 131/85 Blood Pressure Mean 101 Blood Pressure Mean [Left Arm] 100 Blood Pressure Source [Left Arm] Automatic Cuff 02 Sat by Pulse Oximetry 98 97 92 L Oxygen Delivery Method Room Air Room Air 11/27/23 11:15 11/27/23 11:30 11/27/23 11:45 Temperature Temperature Source Pulse Rate 82 84 55 L Pulse Rate [Right] Respiratory Rate 15 16 17 Blood Pressure 131/96 H 148/87 H 140/90 Blood Pressure [Left Arm] Blood Pressure Mean 107 107 102 Blood Pressure Mean [Left Arm] Blood Pressure Source [Left Arm] 02 Sat by Pulse Oximetry 92 L Oxygen Delivery Method 11/27/23 12:00 Temperature Temperature Source Pulse Rate 76 Pulse Rate [Right] Respiratory Rate 17 Blood Pressure 148/86 H Blood Pressure [Left Arm] Blood Pressure Mean 105 Blood Pressure Mean [Left Arm] Blood Pressure Source [Left Arm] 02 Sat by Pulse Oximetry Oxygen Delivery Method Lab Data Labs: Lab Results 11/27/23 10:05: WBC 7.0, RBC 4.31, Hgb 10.7 L, Hct 33.6 L, MCV 78.0 L, MCH 24.9 L, MCHC 32.0, RDW 15.9, Plt Count 344, MPV 8.0, Neut % (Auto) 66.0, Lymph % (Auto) 26.9, Edwards % (Auto) 3.9, Eos % (Auto) 2.5, Baso % (Auto) 0.7, Neut # (Auto) 4.6, Lymph # (Auto) 1.9, Edwards # (Auto) 0.3, Eos # (Auto) 0.2, Baso # (Auto) 0.1, Sodium 138, Potassium 4.6, Chloride 109 H, Carbon Dioxide 23, Anion Gap 10.6, BUN 14, Creatinine 1.00, Estimated Creat Clear 124, Estimated GFR 63, Est GFR ( Amer) 76, Glucose 94, Calcium 8.8, Magnesium 1.9, Total Bilirubin 0.3, AST 35, ALT 38, Alkaline Phosphatase 117, Troponin I < 0.01, NT-Pro-B Natriuret Pep 2040 H, Total Protein 6.4, Albumin 3.4 L, Globulin 3.0, Albumin/Globulin Ratio 1.1, TSH 1.73, Thyroxine (T4) 12.5 H, HCG, Quant 164 H 11/27/23 10:05 11/27/23 10:05 Response Orders (Tests/Meds): ED MEDICATIONS Discontinued Medications Generic Name Dose Route Start Last Admin Trade Name Freq PRN Reason Stop Dose Admin Aspirin 324 mg 11/27/23 10:02 11/27/23 10:35 Aspirin 81mg Chewable Tablet PO 11/27/23 10:03 324 mg ONCE ONE Administration ORDERS Category Date Time Status XR chest portable Stat Exams 11/27/23 10:02 Taken Brain Natriuretic Peptide Stat Lab 11/27/23 10:05 Completed Complete Blood Count Auto Diff Stat Lab 11/27/23 10:05 Completed Comprehensive Metabolic Panel Stat Lab 11/27/23 10:05 Completed HCG,Quantitative Stat Lab 11/27/23 10:05 Completed Magnesium Stat Lab 11/27/23 10:05 Completed T4 (Thyroxine) Stat Lab 11/27/23 10:05 Completed TSH [Thyroid Stimulating Hormone] Stat Lab 11/27/23 10:05 Completed Troponin I Q3H Lab 11/27/23 13:15 Ordered Troponin I Q3H Lab 11/27/23 16:15 Ordered Troponin I Stat Lab 11/27/23 10:05 Completed CA echo doppler complete Stat Y 11/27/23 12:09 Ordered MDM Narrative Medical Decision Narrative: This is a 37-year-old female with history of nonischemic cardiomyopathy, CHF, gestational diabetes with shortness of breath. Patient states that she had vaginal delivery less than a week ago in [place]. Since that time, she has had multiple dreams where she cannot breathe and states that she wakes up gasping. Her took videos of her and states that it looks like she is not breathing during these episodes. Patient had a history of QUIN in the past, but had her tonsils, adenoids, uvula removed for therapy and has not had any problems with it in years. She states that she had a panic attack this morning, 11/26 because she was concerned that she cannot breathe. She does have difficulty lying flat at baseline, unsure if this is gotten any worse. She states that on the way to the emergency department, symptoms improved, but she is still feeling mildly short of breath. Bilateral lower extremity swelling is a little worse than usual. Denies DVT or PE risk factors, history of clot, chest pain, nausea or vomiting. She has had a nonproductive cough and multiple sick contacts, but no other sick symptoms otherwise. History was obtained via conversation with patient. On arrival, patient hemodynamically stable, alert, oriented x4, appropriate, GCS 15, moving all extremities spontaneously, pupils equal and reactive to light. Full physical exam performed and significant for well-appearing no acute distress. Nontachycardic, normotensive, saturating appropriately on room air. Lungs are clear to auscultation bilaterally without wheezes or focal breath sounds. Cardiac exam within normal limits other than 1+ lower extremity bilateral pitting edema. Differential includes cardiomyopathy, pericarditis, pneumonia, bronchitis, ACS, ND, CHF, PE, anxiety, panic, among others. Patient was given 40 mg Lasix, 324 mg aspirin for symptomatic management and correction of underlying abnormalities. Workup independently interpreted and significant for nonactionable CBC or chemistry. Kidney function normal, magnesium normal. LFTs nonactionable. BNP elevated at 2040 with nonactionable thyroid studies. hCG mildly elevated at 164. Chest x-ray with pulmonary venous congestion without overt edema or cardiomegaly. See radiology read for full review of final results. Independent interpretation of EKG shows sinus rhythm 82 beats a minute with no ST or T wave changes concerning for acute ischemia. Patient does have left bundle branch block with left axis deviation and Sgarbossa negative criteria.. Patient placed on continuous cardiac monitoring and continuous pulse ox with initial blood pressure 136/89, heart rate 85, saturation 96 on room air. Heart score 3. Cardiology was contacted and case was discussed at length, they recommended admission for further workup given patient's history. I then called [facility] for potential admission given recent via . OB recommended medicine admission with OB consult. Hospital medicine was contacted and case was discussed at length, graciously excepted admission. Patient to be admitted to hospital medicine for echocardiogram, cardiology and [facility] [facility] consultations. Given patient presentation, workup, history, this most likely represents cardiomyopathy. Because patient high risk for clinical decompensation, deemed appropriate for inpatient admission. Results were relayed to patient who voiced understanding and patient was agreeable to inpatient admission and management. Patient was admitted to the hospital for further definitive management.
[2023-11-27 10:42] LABS: HCG,Quantitative 164 mIU/ml (0-5.42); Troponin I < 0.01 ng/ml (0.00-0.034)
[2023-11-27 11:40] LABS: T4 (Thyroxine) 12.5 ug/dl (5.53-11.0)
[2023-11-27 11:54] LABS: Thyroid Stimulating Hormone 1.73 uIU/mL (0.465-4.68)
--- NOTE | 2023-11-27 12:09 | CA_ITS ---
APPROVED REPORT EXAM: Comprehensive 2D, Doppler, and color-flow Echocardiogram Clin Nurse Spec: Alysa Gamino RT(R) Ht: 5 ft 4 in Wt: 230lbs BSA: 2.08 BP: 131/85 mmHg Indications: 1 week vaginal , SOB, gestational diabetes, previous post CM with prior thought to be takuotsubo, 2D Dimensions LVEF (Harvey's) 22.70 % F: 54 - 74 LV Volume 176.60 mL F: 46 - 106 LV Volume Index 84.9 mL/m2 F: 29 - 61 LA Volume 48.60 mL LA Volume Index 23.37 mL/m2 (M/F) 16-34 EF AP4 26.40 % EF AP2 18.5 % EF BP 22.7 % GL Strain -4.6 % M-Mode Dimensions RVDd 2.26 cm (0.9-2.6) LA Diam 4.04 cm (1.9-4.0) LVDd 6.52 cm (3.5-5.7) LVDs 5.58 cm (3.5-5.7) IVSd 0.87 cm (0.6-1.1) PWd 0.87 cm (0.6-1.1) EF (Teich) 29.90% FS 14.40% EDV (Teich) 217.50 mL ESV (Teich) 152.40 mL LV Diastology E Decel Time 150 (160-240 msec) E/A Ratio 0.3 Mitral Valve MV E Max Conrad. 28.0 (40-130 cm/s) MV A Velocity 102.0 (40-130 cm/s) E/A Ratio 0.28 MV PHT 44.0 ms Tricuspid Valve TR P. Velocity 256.00 cm/s RAP Estimate 10.00 mmHg RVSP 36.30 mmHg Left Ventricle The left ventricle is normal size. There is severe reduction in LV systolic function. There is normal left ventricular wall thickness. Severe global hypokinesis is present. No obvious regional wall motion abnormalities are present. Grade 1 diastolic dysfunction is present. LVEF is 20%. Right Ventricle The right ventricle is normal size. The right ventricular systolic function is normal. Atria The left atrium size is normal. The right atrium size is normal. There is no Doppler evidence of interatrial shunt. Aortic Valve The aortic valve opens well. There is no aortic valvular stenosis. No aortic regurgitation is present. Mitral Valve The mitral valve is normal in structure. No evidence of mitral valve stenosis. Mild mitral regurgitation. Tricuspid Valve The tricuspid valve leaflets are thin and pliable. Trace tricuspid regurgitation. There is insufficient TR jet to estimate RVSP. Pulmonic Valve The pulmonary valve is normal in structure. Trace pulmonic regurgitation. Great Vessels The aortic root is normal in size. The ascending aorta is normal in size. IVC is normal in size and collapses >50% with inspiration. Pericardium There is no pericardial effusion. Other Information Study Quality: Fair Conclusion Severe reduction in LV systolic function (LVEF 20%). Severe global hypokinesis is present. No obvious regional wall motion abnormalities are present. No significant valvular stenosis or regurgitation. Compared to prior study from 2021, the LVEF appears further reduced. Electronically signed by : Mireya Cunningham MD 11/28/2023 01:01:27
--- NOTE | 2023-11-27 12:09 | PC.NURSE ---
DR CEDILLO SPEAKING WITH DR Bhavani VILLANUEVA
--- NOTE | 2023-11-27 12:24 | PC.NURSE ---
DR CEDILLO SPEAKING WITH DR SESAY
--- NOTE | 2023-11-27 12:26 | PC.NURSE ---
PT ACCEPTED BY DR SESAY
[2023-11-27] MEDS: FUROSEMIDE 40MG/4ML VIAL 40 MG IV ×2 (12:32→17:29)
--- NOTE | 2023-11-27 12:35 | PC.NURSE ---
[facility] [employer]INE[employer] NOTIFIED OF ADMISSION
--- NOTE | 2023-11-27 13:03 | PC.NURSE ---
Alysa from Resp to do echo on this pt
--- NOTE | 2023-11-27 13:04 | PC.NURSE ---
They are heading down to do ECHO on patient.
--- NOTE | 2023-11-27 13:16 | HMH.PHAINT1 ---
Pharmacy Intervention Comments: MEDICATION RECONCILIATION COMPLETED ON PATIENT USING EXTERNAL FILL HISTORY FROM PHARMACY. -BRAYAN JAUREGUI, HAKAND
--- NOTE | 2023-11-27 13:49 | PC.NURSE ---
RETURNED FROM ECHO
--- NOTE | 2023-11-27 14:19 | PC.NURSE ---
Gave report to Shelley Kevin RN on Med/Surg
--- NOTE | 2023-11-27 14:38 | PC.NURSE ---
PT UPDATED ON POC AT THIS TIME
[2023-11-27 14:43] LABS: Troponin I < 0.01 ng/ml (0.00-0.034)
--- NOTE | 2023-11-27 15:18 | PC.NURSE ---
arrived to floor at 14:46 by w/c from ED
[2023-11-27] MEDS: ENOXAPARIN 40MG/0.4ML SYRINGE 40 MG SQ (15:39)
--- NOTE | 2023-11-27 15:46 | P.CONCA_ITS ---
History of Present Illness History of Present Illness Consult date: 11/27/23 Requesting physician: Emmanuel Steve Chief complaint: soa History of present illness: 37-year-old white female who is 1 week with past medical history of n onischemic cardiomyopathy with a previous ejection fraction of 40%, , and 1 full-term stillbirth, gestational diabetes, severe anxiety and depression presented to emergency department with complaints of increased shortness of breath, orthopnea and lower extremity edema x 1 week since giving . Patient reports she was induced at 36 weeks due to her gestational diabetes. Patient has a history of nonischemic cardiomyopathy with a previous ejection fraction of 40% in 2021 after stillbirth. Patient reports at that time she underwent a left heart catheterization which was essentially normal and referred to [facility] for cardiac MRI which she had. Patient reports she ended up following up with cardiology in [place] and never got a clear understanding of what was actually going on. Patient reports at one point she was told that her low ejection fraction was secondary to a stress cardiomyopathy and that it had recovered. Upon presentation to emergency department patient was found to be in normal sinus rhythm with a rate of 82 with a left bundle branch block which is old. Labs were as follow: WBC 7, hemoglobin 10.7, sodium 138, potassium 4.6, creatinine 1, serial troponins negative, proBNP 2000. Chest x- ray was concerning for pulmonary venous congestion and Lasix 40 mg IV was given x 1 along with aspirin 324 mg. Patient was admitted for echocardiogram and fur ther evaluation for heart failure. [facility] Disclaimer: The information contained in this section may have been updated after the patient was seen, as this information can be updated by other users. Medical History (Updated 11/27/23 @ 16:18 by Dana Grover APRN) Diabetes mellitus Kidney stone Family history of ischemic heart disease (IHD) Umbilical hernia Surgical History (Updated 10/02/23 @ 11:39 by Julia Beltran) History of renal stent History of oral surgery History of breast biopsy Social History Smoking Status: Unknown if ever smoked alcohol intake: never substance use type: denies use current occupational status: employed Travel in the last 8 weeks: Inside the [place] household members: family housing: house current occupational exposures/hazards: No caffeine: Yes Review of Systems Review of Systems Review of systems:: pertinent systems reviewed and negative unless documented below *Cardiovascular Cardiovascular: Denies chest pain and Reports dyspnea Comments: Lower extremity edema and orthopnea *Respiratory Respiratory: Reports dyspnea Exam Data for Last 24 hours Vital signs and Labs for Last 24 Hours: Temp Pulse Resp BP Pulse Ox O2 Del Method 97.8 F 90 18 144/90 H 98 Room Air 11/27/23 14:44 11/27/23 14:44 11/27/23 14:44 11/27/23 14:44 11/27/23 13:00 11/27/23 14:44 Laboratory Results - last 24 hr 11/27/23 10:05: WBC 7.0, RBC 4.31, Hgb 10.7 L, Hct 33.6 L, MCV 78.0 L, MCH 24.9 L, MCHC 32.0, RDW 15.9, Plt Count 344, MPV 8.0, Neut % (Auto) 66.0, Lymph % (Auto) 26.9, [place] % (Auto) 3.9, Eos % (Auto) 2.5, Baso % (Auto) 0.7, Neut # (Auto) 4.6, Lymph # (Auto) 1.9, [place] # (Auto) 0.3, Eos # (Auto) 0.2, Baso # (Auto) 0.1, Sodium 138, Potassium 4.6, Chloride 109 H, Carbon Dioxide 23, Anion Gap 10.6, BUN 14, Creatinine 1.00, Estimated Creat Clear 124, Estimated GFR 63, Est GFR ( Amer) 76, Glucose 94, Calcium 8.8, Magnesium 1.9, Total Bilirubin 0.3, AST 35, ALT 38, Alkaline Phosphatase 117, Troponin I < 0.01, NT-Pro-B Natriuret Pep 2040 H, Total Protein 6.4, Albumin 3.4 L, Globulin 3.0, Albumin/Globulin Ratio 1.1, TSH 1.73, Thyroxine (T4) 12.5 H, HCG, Quant 164 H 11/27/23 14:06: Troponin I < 0.01 I & O for Last 24 hours: Intake & Output 11/24/23 11/25/23 11/26/23 11/27/23 23:59 23:59 23:59 23:59 Weight 220 lb Constitutional Constitutional: no acute distress *Routine Respiratory Exam Respiratory: Present CTA bilaterally and symmetric chest movement *Routine Cardiovascular Exam Cardiovascular: Present RRR, Normal S1 and Normal S2 *Routine Abdominal Exam Abdominal: Present soft and normoactive bowel sounds; Absent tenderness *Routine Extremities Exam Extremities: Present full ROM and normal capillary refill; Absent edema *Routine Skin Exam Skin: Present intact, dry and warm Detailed Neck Exam: Thyroids Thyroid: Absent bruit Meds Home Medications and Allergies Home Medications Medication Instructions Recorded Confirmed Type glycopyrrolate 2 mg tablet 2 mg PO QID 05/05/21 11/27/23 History loratadine 10 mg tablet (Allergy 10 mg PO DAILY Allergy Symptoms 05/05/21 11/27/23 History Relief (loratadine)) omeprazole 40 mg capsule,delayed 40 mg PO DAILY Acid Reflux 05/05/21 11/27/23 History release buspirone 30 mg tablet 30 mg PO BID Anxiety 09/13/23 11/27/23 History dextromethorphan IR 45 2 tab PO DAILY Mood 09/13/23 11/27/23 History mg-bupropion ER 105 mg biphasic tablet (Auvelity) gabapentin 300 mg capsule 600 mg PO TID Pain 09/13/23 11/27/23 History hydroxyzine HCl 50 mg tablet 100 mg PO TIDP PRN Anxiety 09/13/23 11/27/23 History lorazepam 1 mg tablet 1 mg PO TIDP PRN Anxiety 09/13/23 11/27/23 History trazodone 50 mg tablet 50 mg PO HSP PRN Insomnia 09/13/23 11/27/23 History docusate sodium 100 mg capsule 100 mg PO BID Constipation 11/27/23 11/27/23 History ferrous sulfate 325 mg (65 mg 325 mg PO DAILY Supplement 11/27/23 11/27/23 History iron) tablet (FeroSul) ibuprofen 600 mg tablet 600 mg PO Q6HP PRN Mild Pain 11/27/23 11/27/23 History (Scale Score 1-4) New Prescriptions to Start Prescriptions: Allergies Allergy/AdvReac Type Severity Reaction Status Date / Time Penicillins Allergy Intermediate Verified 10/02/23 11:11 Assessment and Plan *Assessment and plan (1) cardiomyopathy: Status: Acute Category: Medical Code(s): 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 (2) Heart failure with reduced ejection fraction: Status: Acute Category: Medical Code(s): I50.20 - Unspecified systolic (congestive) heart failure (3) Gestational diabetes: Status: Acute Category: Medical Code(s): O24.419 - Gestational diabetes mellitus in , unspecified control (4) Vaginal delivery: Status: Acute Category: Medical Code(s): O80 - Encounter for full-term uncomplicated delivery Plan Acute on chronic HFrEF NYHA III -preliminary echo report shows an estimated EF of 30% -Patient was given Lasix 40 mg IV x 1 in ER and is diuresing -Will continue Lasix 40 mg IV daily -Start Entresto 24/26 mg p.o. 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 Will continue to diurese with Lasix 40 mg IV daily and start Entresto 24/26 mg p.o. twice daily. Will obtain cardiac MRI from [facility]. Official echo read is pending.
[2023-11-27 17:08] LABS: Troponin I < 0.01 ng/ml (0.00-0.034)
--- NOTE | 2023-11-27 17:37 | PC.NURSE ---
A&OX4. TOLERATING RA WELL. AMBULATING INDEPENDENTLY IN ROOM. RECEIVING LASIX PER NOV. DOES HAVE +2 PITTING EDEMA TO BLE. HAS NO NEEDS OR C/O THUS FAR THIS SHIFT. DOES SEEM TO BE VERY ANXIOUS, WITH A HISTORY OF DEPRESSION AND ANXIETY. PT IS ON ANX/DEP MEDICATIONS AT HOME. VSS.
--- NOTE | 2023-11-27 17:43 | P.HP_ITS ---
History of Present Illness *Admission Date: 11/27/23 *Reason for visit:: SOB *History of present illness: Patient is a 37-year-old female who is 1 week presents to the hospital for shortness of breath bilateral lower extremity swelling as well as dyspnea on exertion. Patient mentions she has past medical history of nonischemic cardiomyopathy, she was noted to have an ejection fraction of around 40%. She also had gastrointestinal diabetes. Patient denied chest pain nausea vomiting diarrhea constipation dysuria. Patient mentions her shortness of breath has been getting worse since . [facility] Disclaimer: The information contained in this section may have been updated after the patient was seen, as this information can be updated by other users. Medical History (Updated 11/27/23 @ 16:18 by Dana Grover APRN) Diabetes mellitus Kidney stone Family history of ischemic heart disease (IHD) Umbilical hernia Surgical History (Updated 10/02/23 @ 11:39 by Julia Beltran) History of renal stent History of oral surgery History of breast biopsy Social History Smoking Status: Unknown if ever smoked alcohol intake: never substance use type: denies use current occupational status: employed Travel in the last 8 weeks: [place] the [place] household members: family housing: house current occupational exposures/hazards: No caffeine: Yes Review of Systems Review of Systems Review of systems (narrative): as per [facility] Meds Home Medications and Allergies Home Medications Medication Instructions Recorded Confirmed Type glycopyrrolate 2 mg tablet 2 mg PO QID 05/05/21 11/27/23 History loratadine 10 mg tablet (Allergy 10 mg PO DAILY Allergy Symptoms 05/05/21 11/27/23 History Relief (loratadine)) omeprazole 40 mg capsule,delayed 40 mg PO DAILY Acid Reflux 05/05/21 11/27/23 History release buspirone 30 mg tablet 30 mg PO BID Anxiety 09/13/23 11/27/23 History dextromethorphan IR 45 2 tab PO DAILY Mood 09/13/23 11/27/23 History mg-bupropion ER 105 mg biphasic tablet (Auvelity) gabapentin 300 mg capsule 600 mg PO TID Pain 09/13/23 11/27/23 History hydroxyzine HCl 50 mg tablet 100 mg PO TIDP PRN Anxiety 09/13/23 11/27/23 History lorazepam 1 mg tablet 1 mg PO TIDP PRN Anxiety 09/13/23 11/27/23 History trazodone 50 mg tablet 50 mg PO HSP PRN Insomnia 09/13/23 11/27/23 History docusate sodium 100 mg capsule 100 mg PO BID Constipation 11/27/23 11/27/23 History ferrous sulfate 325 mg (65 mg 325 mg PO DAILY Supplement 11/27/23 11/27/23 History iron) tablet (FeroSul) ibuprofen 600 mg tablet 600 mg PO Q6HP PRN Mild Pain 11/27/23 11/27/23 History (Scale Score 1-4) New Prescriptions to Start Prescriptions: Allergies Allergy/AdvReac Type Severity Reaction Status Date / Time Penicillins Allergy Intermediate Verified 10/02/23 11:11 Exam Data for Last 24 hours Vital signs and Labs for Last 24 Hours: Temp Pulse Resp BP Pulse Ox O2 Del Method 97.5 F L 82 19 142/86 H 97 Room Air 11/27/23 16:00 11/27/23 16:00 11/27/23 16:00 11/27/23 16:00 11/27/23 16:00 11/27/23 17:00 Laboratory Results - last 24 hr 11/27/23 10:05: WBC 7.0, RBC 4.31, Hgb 10.7 L, Hct 33.6 L, MCV 78.0 L, MCH 24.9 L, MCHC 32.0, RDW 15.9, Plt Count 344, MPV 8.0, Neut % (Auto) 66.0, Lymph % (Auto) 26.9, [place] % (Auto) 3.9, Eos % (Auto) 2.5, Baso % (Auto) 0.7, Neut # (Auto) 4.6, Lymph # (Auto) 1.9, [place] # (Auto) 0.3, Eos # (Auto) 0.2, Baso # (Auto) 0.1, Sodium 138, Potassium 4.6, Chloride 109 H, Carbon Dioxide 23, Anion Gap 10.6, BUN 14, Creatinine 1.00, Estimated Creat Clear 124, Estimated GFR 63, Est GFR ( Amer) 76, Glucose 94, Calcium 8.8, Magnesium 1.9, Total Bilirubin 0.3, AST 35, ALT 38, Alkaline Phosphatase 117, Troponin I < 0.01, NT-Pro-B Natriuret Pep 2040 H, Total Protein 6.4, Albumin 3.4 L, Globulin 3.0, Albumin/Globulin Ratio 1.1, TSH 1.73, Thyroxine (T4) 12.5 H, HCG, Quant 164 H 11/27/23 14:06: Troponin I < 0.01 11/27/23 16:28: Troponin I < 0.01 I & O for Last 24 hours: Intake & Output 11/24/23 11/25/23 11/26/23 11/27/23 23:59 23:59 23:59 23:59 Output Total 0 / 0 Balance 0 / 0 Weight 101.746 kg Constitutional Constitutional: no acute distress *Routine HEENT Exam Head: Present normocephalic Eye: Present EOMI and PERRL ENT: Present mucous membranes moist *Routine Neck Exam Neck: Present supple; Absent lymphadenopathy *Routine Respiratory Exam Respiratory: Present CTA bilaterally *Routine Cardiovascular Exam Cardiovascular: Present RRR *Routine Abdominal Exam Abdominal: Present soft and normoactive bowel sounds; Absent tenderness *Routine Rectal Exam Rectal:: deferred *Routine Genitalia Exam Genitalia:: deferred *Routine Extremities Exam Extremities: Absent cyanosis, clubbing or edema *Routine Skin Exam Skin: Present warm; Absent rash *Routine Neurological Exam Neurological: Present alert and oriented X3 Assessment and Plan *Assessment and plan (1) Heart failure with reduced ejection fraction: Status: Acute Category: Medical Code(s): I50.20 - Unspecified systolic (congestive) heart failure (2) cardiomyopathy: Status: Acute Category: Medical Code(s): 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 Plan Patient is a 37-year-old female who is 1 week presents to the hospital for shortness of breath bilateral lower extremity swelling as well as dyspnea on exertion. Patient mentions she has past medical history of nonischemic cardiomyopathy, she was noted to have an ejection fraction of around 40%. She also had gastrointestinal diabetes. Patient denied chest pain nausea vomiting diarrhea constipation dysuria. Patient mentions her shortness of breath has been getting worse since . Assessment and plan Acute on chronic systolic heart failure with reduced ejection fraction 1 week , vaginal delivery at 36 weeks History of gestational diabetes Started on Lasix 40 daily Cardiac echo has been ordered Cardiology consulted Patient has been started on Entresto by cardiology Low-salt diet Daily weights Strict I's and O's Elevated T3 - [place] due to recent Iron Deficiency anemia - continue iron sulphate Hypertension Bipolar disorder PTSD -Continue home buspirone-suspect, Neurontin hydroxyzine trazodone
[2023-11-27] MEDS: HYDROXYZINE HCL 50 MG 100 EACH PO (21:08)
[2023-11-27] MEDS: TRAZODONE 50MG TABLET 50 MG PO (21:08)
[2023-11-27] MEDS: SACUBITRIL/VALSARTAN 24-26MG TABLET 1 EACH PO (21:08)
[2023-11-27] MEDS: LORazepam 1MG TABLET 1 MG PO (21:08)
[2023-11-27] MEDS: GABAPENTIN 300MG CAPSULE 600 MG PO (21:09)
[2023-11-27] MEDS: BUSPIRONE 30 MG 30 EACH PO (21:10)
[2023-11-27] MEDS: TRAZODONE 50MG TABLET 100 MG PO (22:19)
--- NOTE | 2023-11-27 22:22 | PC.NURSE ---
Addendum entered by Pauly Sanches RN 11/28/23 02:18: Patient HR has decreased to WNL. Patient resting more comfortably with additional medication. Original Note: During assessment patient emotional; post- 6 weeks. HR has been >100 and patient states she feels very anxious; has been given Lorazepam, Gabapentin, Trazodone, & Hydroxyzine at 2108; Spoke with provider Romero Maldonado received order for additional trazodone 100mg PO for a total of 150mg this shift. Patient has call light in reach.
[2023-11-28] VITALS (8 sets, daily range): BP systolic 119–160; BP diastolic 72–95; PULSE 75–97; RESP 16–20; TEMP 36.7–37; O2SAT 94–97; BMI 39.9
[2023-11-28 06:54] LABS: Basophils # 0.1 K/mm3 (0-0.2); Eosinophils # 0.2 K/mm3 (0.0-0.4); Eosinophils % 2.8 % (0.1-12.0); Hematocrit 34.8 % (37.0-47.0); Hemoglobin 11.2 g/dL (12.2-16.2); Lymphocytes # 2.5 K/mm3 (0.7-4.5); Lymphocytes % 34.4 % (10-50); Mean Corpuscular HGB Conc 32.2 g/dL (31.8-35.4); Mean Corpuscular Volume 77.4 fl (81-99); Mean Platelet Volume 8.3 fl (7.4-10.4); Monocytes # 0.4 K/mm3 (0.1-1.0); Neutrophils # 4.1 K/mm3 (1.8-7.8); Neutrophils % 56.8 % (37.0-80.0); Platelet Count 340 K/mm3 (142-424); Red Cell Distribution Width 15.7 % (11.5-17.5); White Blood Count 7.2 K/mm3 (4.8-10.8)
[2023-11-28 07:14] LABS: Anion Gap 11.8 mEq/L (5-15); Blood Urea Nitrogen 19 mg/dl (7-17); Calcium 8.2 mg/dl (8.4-10.2); Carbon Dioxide 22 mmol/L (22.0-30.0); Chloride 107 mmol/L (98-107); Creatinine Clearance Estimated 120 mL/min (50-200); Estimated Glomerular Filt Rate 57 ml/min (>60); GFR (African American) 68 ML/MIN (>60); Glucose 89 mg/dl (74-100); Potassium 3.8 mmoL/L (3.5-5.1); Sodium 137 mmol/L (136-145)
[2023-11-28] MEDS: SACUBITRIL/VALSARTAN 24-26MG TABLET 1 EACH PO ×2 (08:52→21:22)
[2023-11-28] MEDS: FERROUS SULFATE 325MG TABLET 325 MG PO (08:52)
[2023-11-28] MEDS: GABAPENTIN 300MG CAPSULE 600 MG PO ×2 (08:53→21:22)
[2023-11-28] MEDS: BUSPIRONE HCL 10 MG TABLET 30 MG PO ×2 (08:53→21:22)
[2023-11-28] MEDS: FUROSEMIDE 40MG/4ML VIAL 40 MG IV (08:53)
[2023-11-28] MEDS: ENOXAPARIN 40MG/0.4ML SYRINGE 40 MG SQ (08:53)
[2023-11-28] MEDS: LORazepam 1MG TABLET 1 MG PO ×3 (09:01→22:39)
[2023-11-28] MEDS: hydrOXYzine pamoate 25MG CAPSULE 100 MG PO ×3 (09:02→22:38)
--- NOTE | 2023-11-28 10:56 | P.PN_ITS ---
Subjective Subjective Date: 11/28/23 Time: 08:00 Principal diagnosis: Volume overload, heart failure with reduced ejection fraction Interval history: Patient doing well this morning, reports lower extremity edema and shortness of breath is improved. Morning labs reviewed and stable Exam Data for Last 24 hours Vital signs and Labs for Last 24 Hours: Temp Pulse Resp BP Pulse Ox O2 Del Method 98.4 F 90 18 160/79 H 96 Room Air 11/28/23 07:59 11/28/23 08:00 11/28/23 07:59 11/28/23 07:59 11/28/23 07:59 11/28/23 09:00 Laboratory Results - last 24 hr 11/27/23 10:05: TSH 1.73, Thyroxine (T4) 12.5 H 11/27/23 14:06: Troponin I < 0.01 11/27/23 16:28: Troponin I < 0.01 11/28/23 06:26: WBC 7.2, RBC 4.50, Hgb 11.2 L, Hct 34.8 L, MCV 77.4 L, MCH 25.0 L, MCHC 32.2, RDW 15.7, Plt Count 340, MPV 8.3, Neut % (Auto) 56.8, Lymph % (Auto) 34.4, [place] % (Auto) 5.0, Eos % (Auto) 2.8, Baso % (Auto) 1.0, Neut # (Auto) 4.1, Lymph # (Auto) 2.5, [place] # (Auto) 0.4, Eos # (Auto) 0.2, Baso # (Auto) 0.1, Sodium 137, Potassium 3.8, Chloride 107, Carbon Dioxide 22, Anion Gap 11.8, BUN 19 H D, Creatinine 1.10 H, Estimated Creat Clear 120, Estimated GFR 57 L, Est GFR ( Amer) 68, Glucose 89, Calcium 8.2 L I & O for Last 24 hours: Intake & Output 11/25/23 11/26/23 11/27/23 11/28/23 23:59 23:59 23:59 23:59 Intake Total 360 / 360 220 / 220 Output Total 0 / 0 0 / 0 Balance 360 / 360 220 / 220 Weight 224 lb 5 oz 234 lb Constitutional Constitutional: no acute distress *Routine Respiratory Exam Respiratory: Present CTA bilaterally and symmetric chest movement *Routine Cardiovascular Exam Cardiovascular: Present RRR, Normal S1 and Normal S2 *Routine Abdominal Exam Abdominal: Present soft and normoactive bowel sounds; Absent tenderness *Routine Extremities Exam Extremities: Present edema, full ROM and normal capillary refill Comments: Lower extremity edema improved *Routine Skin Exam Skin: Present intact, dry and warm Detailed Neck Exam: Thyroids Thyroid: Absent bruit Progress Note: A&P Assessment and plan (1) Heart failure with reduced ejection fraction: Status: Acute (2) cardiomyopathy: Status: Acute Assessment and Plan Assessment and Plan for All Diagnoses:: Acute on chronic HFrEF NYHA III -Echocardiogram 11/28/2023 shows severe reduction in LV systolic function of 20%, severe global hypokinesis present with no obvious regional wall motion abnormalities noted. No significant valvular stenosis or regurgitation present. -Change Lasix from 40 mg IV to 40 mg p.o. -Continue Entresto 24/26 mg p.o. twice daily -Start Aldactone 25 mg and Jardiance 10 mg -Requested medical records from [facility] regarding cardiac MRI -Patient underwent left heart catheterization 05/2022-which revealed normal coronaries -Patient is diuresing well -Will hold on beta-flex at this time given ejection fraction of 20% and acute heart failure symptoms. -Patient will need LifeVest placed prior to discharge. 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 Patient on Entresto 24/26 mg p.o. twice daily. Will add Aldactone 25 mg p.o. daily and Jardiance 10 mg p.o. daily. Bipolar disorder PTSD from full-term stillbirth Anxiety and depression Panic attacks -Defer to primary service CV summary 11/28/2023: Patient patient is CV stable for discharge. Please continue guideline directed medical therapy as listed above. No beta-flex initiated at this time due to severely reduced ejection fraction and acute heart failure. Patient will need LifeVest fitting prior to being discharged. Cardiac meds Lasix 40 mg p.o. daily Entresto 24/26 mg p.o. twice daily Aldactone 25 mg p.o. daily Jardiance 10 mg p.o. daily
--- NOTE | 2023-11-28 11:25 | P.DS_ITS ---
General Admission date:: 11/27/23 Discharge date: 11/28/23 HPI HPI HPI: Patient is a 37-year-old female who is 1 week presents to the hospital for shortness of breath bilateral lower extremity swelling as well as dyspnea on exertion. Patient mentions she has past medical history of nonischemic cardiomyopathy, she was noted to have an ejection fraction of around 40%. She also had gastrointestinal diabetes. Patient denied chest pain nausea vomiting diarrhea constipation dysuria. Patient mentions her shortness of breath has been getting worse since . Hospital Course Hospital Course Hospital Course: Patient was seen and evaluated at the bedside on the day of discharge. Patient wishes to be discharged. All patient questions were answered and patient was given time to ask questions. Patient was discharged in stable condition. Patient understands that she can return to ER in case of any sudden changes in health. Total time spent on DC - 38 mins Patient is a 37-year-old female who is 1 week presents to the hospital for shortness of breath bilateral lower extremity swelling as well as dyspnea on exertion. Patient mentions she has past medical history of nonischemic cardiomyopathy, she was noted to have an ejection fraction of around 40%. She also had gastrointestinal diabetes. Patient denied chest pain nausea vomiting diarrhea constipation dysuria. Assessment and plan Acute on chronic systolic heart failure with reduced ejection fraction - impro popeye 1 week , vaginal delivery at 36 weeks History of gestational diabetes Cardiac meds Lasix 40 mg p.o. daily Entresto 24/26 mg p.o. twice daily Aldactone 25 mg p.o. daily Jardiance 10 mg p.o. daily Follow up with cardiology and NIGHT WAREHOUSE MANAGER as OP and patient was informed Exam Data for Last 24 hours Vital signs and Labs for Last 24 Hours: Temp Pulse Resp BP Pulse Ox O2 Del Method 98.4 F 90 18 160/79 H 96 Room Air 11/28/23 07:59 11/28/23 08:00 11/28/23 07:59 11/28/23 07:59 11/28/23 07:59 11/28/23 09:00 Laboratory Results - last 24 hr 11/27/23 10:05: TSH 1.73, Thyroxine (T4) 12.5 H 11/27/23 14:06: Troponin I < 0.01 11/27/23 16:28: Troponin I < 0.01 11/28/23 06:26: WBC 7.2, RBC 4.50, Hgb 11.2 L, Hct 34.8 L, MCV 77.4 L, MCH 25.0 L, MCHC 32.2, RDW 15.7, Plt Count 340, MPV 8.3, Neut % (Auto) 56.8, Lymph % (Auto) 34.4, [place] % (Auto) 5.0, Eos % (Auto) 2.8, Baso % (Auto) 1.0, Neut # (Auto) 4.1, Lymph # (Auto) 2.5, [place] # (Auto) 0.4, Eos # (Auto) 0.2, Baso # (Auto) 0.1, Sodium 137, Potassium 3.8, Chloride 107, Carbon Dioxide 22, Anion Gap 11.8, BUN 19 H D, Creatinine 1.10 H, Estimated Creat Clear 120, Estimated GFR 57 L, Est GFR ( Amer) 68, Glucose 89, Calcium 8.2 L I & O for Last 24 hours: Intake & Output 11/25/23 11/26/23 11/27/23 11/28/23 23:59 23:59 23:59 23:59 Intake Total 360 / 360 220 / 220 Output Total 0 / 0 0 / 0 Balance 360 / 360 220 / 220 Weight 101.746 kg 106.141 kg Constitutional Constitutional: no acute distress *Routine HEENT Exam Head: Present normocephalic Eye: Present EOMI and PERRL ENT: Present mucous membranes moist *Routine Neck Exam Neck: Present supple; Absent lymphadenopathy *Routine Respiratory Exam Respiratory: Present CTA bilaterally *Routine Cardiovascular Exam Cardiovascular: Present RRR *Routine Abdominal Exam Abdominal: Present soft and normoactive bowel sounds; Absent tenderness *Routine Extremities Exam Extremities: Absent cyanosis, clubbing or edema *Routine Skin Exam Skin: Present warm; Absent rash *Routine Neurological Exam Neurological: Present alert and oriented X3 Results Data Completed and Pending Labs on day of discharge: Labs from last 24 hours 11/28/23 11/27/23 11/27/23 06:26 16:28 14:06 WBC 7.2 RBC 4.50 Hgb 11.2 L Hct 34.8 L MCV 77.4 L MCH 25.0 L MCHC 32.2 RDW 15.7 Plt Count 340 MPV 8.3 Neut % (Auto) 56.8 Lymph % (Auto) 34.4 [place] % (Auto) 5.0 Eos % (Auto) 2.8 Baso % (Auto) 1.0 Neut # (Auto) 4.1 Lymph # (Auto) 2.5 [place] # (Auto) 0.4 Eos # (Auto) 0.2 Baso # (Auto) 0.1 Sodium 137 Potassium 3.8 Chloride 107 Carbon Dioxide 22 Anion Gap 11.8 BUN 19 H D Creatinine 1.10 H Estimated Creat Clear 120 Estimated GFR 57 L Est GFR ( Amer) 68 Glucose 89 Calcium 8.2 L Troponin I < 0.01 < 0.01 TSH Thyroxine (T4) 11/27/23 10:05 WBC RBC Hgb Hct MCV MCH MCHC RDW Plt Count MPV Neut % (Auto) Lymph % (Auto) [place] % (Auto) Eos % (Auto) Baso % (Auto) Neut # (Auto) Lymph # (Auto) [place] # (Auto) Eos # (Auto) Baso # (Auto) Sodium Potassium Chloride Carbon Dioxide Anion Gap BUN Creatinine Estimated Creat Clear Estimated GFR Est GFR ( Amer) Glucose Calcium Troponin I TSH 1.73 Thyroxine (T4) 12.5 H DS: Diagnosis Discharge Diagnosis (1) Heart failure with reduced ejection fraction: Status: Acute Code(s): I50.20 - Unspecified systolic (congestive) heart failure (2) cardiomyopathy: Status: Acute Code(s): 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 Meds Home Medications and Allergies Home Medications Medication Instructions Recorded Confirmed Type glycopyrrolate 2 mg tablet 2 mg PO QID 05/05/21 11/27/23 History loratadine 10 mg tablet (Allergy 10 mg PO DAILY Allergy Symptoms 05/05/21 11/27/23 History Relief (loratadine)) omeprazole 40 mg capsule,delayed 40 mg PO DAILY Acid Reflux 05/05/21 11/27/23 History release buspirone 30 mg tablet 30 mg PO BID Anxiety 09/13/23 11/27/23 History dextromethorphan IR 45 2 tab PO DAILY Mood 09/13/23 11/27/23 History mg-bupropion ER 105 mg biphasic tablet (Auvelity) gabapentin 300 mg capsule 600 mg PO TID Pain 09/13/23 11/27/23 History hydroxyzine HCl 50 mg tablet 100 mg PO TIDP PRN Anxiety 09/13/23 11/27/23 History lorazepam 1 mg tablet 1 mg PO TIDP PRN Anxiety 09/13/23 11/27/23 History trazodone 50 mg tablet 50 mg PO HSP PRN Insomnia 09/13/23 11/27/23 History docusate sodium 100 mg capsule 100 mg PO BID Constipation 11/27/23 11/27/23 History ferrous sulfate 325 mg (65 mg 325 mg PO DAILY Supplement 11/27/23 11/27/23 History iron) tablet (FeroSul) ibuprofen 600 mg tablet 600 mg PO Q6HP PRN Mild Pain 11/27/23 11/27/23 History (Scale Score 1-4) empagliflozin 10 mg tablet 10 mg PO DAILY 30 days #30 tabs 11/28/23 Rx (Jardiance) furosemide 20 mg tablet 40 mg (2 x 20 mg) PO DAILY 30 days 11/28/23 Rx #60 tabs sacubitril 24 mg-valsartan 26 mg 1 tab PO BID 30 days #60 tabs 11/28/23 Rx tablet (Entresto) spironolactone 25 mg tablet 25 mg PO DAILY 30 days #30 tabs 11/28/23 Rx New Prescriptions to Start Prescriptions: empagliflozin [Jardiance] Power,Emmanuel furosemide Power,Emmanuel sacubitril-valsartan [Entresto] Power,Emmanuel spironolactone Power,Emmanuel Allergies Allergy/AdvReac Type Severity Reaction Status Date / Time Penicillins Allergy Intermediate Verified 10/02/23 11:11 Discharge Plan Disposition Patient Disposition: Home, Self-Care Condition: Good Discharge Order Discharge Orders: Discharge Order (Routine); Ordered 11/28/23 Ordered By: Emmanuel Steve Follow up Plan Follow up with: Dana Grover APRN [Nurse Practitioner] - 1 week Braulio Pradhan MD [Staff Physician] - Enter time for follow up Prescriptions/Medication Reconciliation: New spironolactone 25 mg Tablet 25 mg PO DAILY 30 Days Qty: 30 0RF Entresto 24-26 mg Tablet 1 tab PO BID 30 Days Qty: 60 0RF furosemide 20 mg Tablet 40 mg PO DAILY 30 Days Qty: 60 0RF Jardiance 10 mg Tablet 10 mg PO DAILY 30 Days Qty: 30 0RF Continued trazodone 50 mg tablet 50 mg PO HSP PRN (Reason: Insomnia) hydroxyzine HCl 50 mg tablet 100 mg PO TIDP PRN (Reason: Anxiety) Patient Comments: TAKE 1 TO 2 TABLETS 3 TIMES EACH DAY NEEDED FOR ANXIETY buspirone 30 mg tablet 30 mg PO BID Patient Comments: TAKE 1 TABLET 2 TIMES EACH DAY gabapentin 300 mg capsule 600 mg PO TID Patient Comments: TAKE 2 CAPSULES 3 TIMES EACH DAY lorazepam 1 mg tablet 1 mg PO TIDP PRN (Reason: Anxiety) Auvelity 45-105 mg tablet, IR and ER, biphasic 2 tab PO DAILY Patient Comments: TAKE 2 TABLETS EVERY DAY glycopyrrolate 2 mg tablet 2 mg PO QID loratadine [Allergy Relief (loratadine)] 10 mg tablet 10 mg PO DAILY omeprazole 40 mg capsule,delayed release(DR/EC) 40 mg PO DAILY ferrous sulfate [FeroSul] 325 mg (65 mg iron) tablet 325 mg PO DAILY Patient Comments: TAKE 1 TABLET 1 TIME EACH DAY WITH BREAKFAST docusate sodium 100 mg capsule 100 mg PO BID Patient Comments: TAKE 1 CAPSULE 2 TIMES EACH DAY ibuprofen 600 mg tablet 600 mg PO Q6HP PRN (Reason: Mild Pain (Scale Score 1-4)) Patient Comments: TAKE 1 TABLET EVERY 6 HOURS NEEDED FOR MILD PAIN Problem Reconciliation Problems Reviewed?: Yes Patient Discharge Instructions ACTIVITY: Ambulate as tolerated DIET: low salt diet Patient Instructions: DI for Shortness of Breath, How to Manage Shortness of Breath Providers Primary Care Provider: Sandro Sebastian Provider: Emmanuel Steve Attending Provider: Emmanuel Steve
[2023-11-28] MEDS: EMPAGLIFLOZIN 10MG TABLET 10 MG PO (12:07)
[2023-11-28] MEDS: SPIRONOLACTONE 25MG TABLET 25 MG PO (12:07)
[2023-11-28] MEDS: GABAPENTIN 600MG TABLET 600 MG PO (14:26)
[2023-11-28] MEDS: TRAZODONE 50MG TABLET 100 MG PO (22:38)
[2023-11-29] VITALS: BP 112/66; PULSE 81; PULSE 86; RESP 18; TEMP 36.7; O2SAT 99
[2023-11-29 04:00] VITALS: BP 125/76; PULSE 78; RESP 18; TEMP 36.7; O2SAT 94; BMI 37.8
--- NOTE | 2023-11-29 04:07 | PC.NURSE ---
Pt is alert and oriented x4 and currently tolerating RA. Pt current HR is 89, Pt denies pain and has no complaints so far this shift.
[2023-11-29 06:00] VITALS: PULSE 90
[2023-11-29 07:11] LABS: Basophils # 0.1 K/mm3 (0-0.2); Basophils % 0.8 % (0.1-2.0); Eosinophils # 0.1 K/mm3 (0.0-0.4); Eosinophils % 2.1 % (0.1-12.0); Hematocrit 39.3 % (37.0-47.0); Hemoglobin 12.2 g/dL (12.2-16.2); Lymphocytes # 2.5 K/mm3 (0.7-4.5); Lymphocytes % 34.9 % (10-50); Mean Corpuscular HGB Conc 31.1 g/dL (31.8-35.4); Mean Corpuscular Hemoglobin 24.2 pg (27.0-31.2); Mean Corpuscular Volume 77.8 fl (81-99); Monocytes # 0.3 K/mm3 (0.1-1.0); Monocytes % 4.9 % (1.7-9.3); Neutrophils % 57.3 % (37.0-80.0); Platelet Count 376 K/mm3 (142-424); Red Blood Count 5.05 M/mm3 (4.20-5.40); Red Cell Distribution Width 15.8 % (11.5-17.5)
[2023-11-29 07:23] LABS: Anion Gap 9.9 mEq/L (5-15); Calcium 8.6 mg/dl (8.4-10.2); Carbon Dioxide 24 mmol/L (22.0-30.0); Chloride 107 mmol/L (98-107); Glucose 95 mg/dl (74-100); Potassium 3.9 mmoL/L (3.5-5.1); Sodium 137 mmol/L (136-145)
[2023-11-29 07:28] LABS: Blood Urea Nitrogen 18 mg/dl (7-17); Creatinine Clearance Estimated 125 mL/min (50-200); Estimated Glomerular Filt Rate 63 ml/min (>60); GFR (African American) 76 ML/MIN (>60)
[2023-11-29 08:00] VITALS: BP 124/69; PULSE 90; PULSE 95; RESP 27; TEMP 36.7; O2SAT 97
[2023-11-29] MEDS: ENOXAPARIN 40MG/0.4ML SYRINGE 40 MG SQ (09:28)
[2023-11-29] MEDS: FERROUS SULFATE 325MG TABLET 325 MG PO (09:29)
[2023-11-29] MEDS: BUSPIRONE HCL 10 MG TABLET 30 MG PO (09:29)
[2023-11-29] MEDS: SPIRONOLACTONE 25MG TABLET 25 MG PO (09:30)
[2023-11-29] MEDS: LORazepam 1MG TABLET 1 MG PO ×2 (09:30→13:42)
[2023-11-29] MEDS: SACUBITRIL/VALSARTAN 24-26MG TABLET 1 EACH PO (09:30)
[2023-11-29] MEDS: FUROSEMIDE 20MG TABLET 20 MG PO (09:30)
[2023-11-29] MEDS: GABAPENTIN 600MG TABLET 600 MG PO ×2 (09:34→13:43)
--- NOTE | 2023-11-29 09:58 | EXP.DC.SUM ---
General Admission date:: 11/27/23 HPI HPI HPI: Patient is a 37-year-old female who is 1 week presents to the hospital for shortness of breath bilateral lower extremity swelling as well as dyspnea on exertion. Patient mentions she has past medical history of nonischemic cardiomyopathy, she was noted to have an ejection fraction of around 40%. She also had gastrointestinal diabetes. Patient denied chest pain nausea vomiting diarrhea constipation dysuria. Patient mentions her shortness of breath has been getting worse since . Hospital Course Hospital Course Hospital Course: Patient was seen and evaluated at the bedside on the day of discharge. Patient wishes to be discharged. All patient questions were answered and patient was given time to ask questions. Patient was discharged in stable condition. Patient understands that she can return to ER in case of any sudden changes in health. Total time spent on DC - 38 mins Patient is a 37-year-old female who is 1 week presents to the hospital for shortness of breath bilateral lower extremity swelling as well as dyspnea on exertion. Patient mentions she has past medical history of nonischemic cardiomyopathy, she was noted to have an ejection fraction of around 40%. She also had gastrointestinal diabetes. Patient denied chest pain nausea vomiting diarrhea constipation dysuria. Assessment and plan Acute on chronic systolic heart failure with reduced ejection fraction - improved 1 week , vaginal delivery at 36 weeks History of gestational diabetes Cardiac meds Lasix 40 mg p.o. daily Entresto 24/26 mg p.o. twice daily Aldactone 25 mg p.o. daily Jardiance 10 mg p.o. daily Follow up with cardiology and PROPERTY MANAGEMENT INTERN as OP and patient was informed, Life vest per insurance approval, cardiology recommended. Patient is waiting for Lifevest pending insurance approval Exam Data for Last 24 hours Vital signs and Labs for Last 24 Hours: Temp Pulse Resp BP Pulse Ox O2 Del Method 98.1 F 95 H 27 H 124/69 97 Room Air 11/29/23 08:00 11/29/23 08:00 11/29/23 08:00 11/29/23 08:00 11/29/23 08:00 11/29/23 09:00 Laboratory Results - last 24 hr 11/29/23 06:29: WBC 7.0, RBC 5.05, Hgb 12.2, Hct 39.3, MCV 77.8 L, MCH 24.2 L, MCHC 31.1 L, RDW 15.8, Plt Count 376, MPV 8.0, Neut % (Auto) 57.3, Lymph % (Auto) 34.9, [place] % (Auto) 4.9, Eos % (Auto) 2.1, Baso % (Auto) 0.8, Neut # (Auto) 4.0, Lymph # (Auto) 2.5, [place] # (Auto) 0.3, Eos # (Auto) 0.1, Baso # (Auto) 0.1, Sodium 137, Potassium 3.9, Chloride 107, Carbon Dioxide 24, Anion Gap 9.9, BUN 18 H, Creatinine 1.00, Estimated Creat Clear 125, Estimated GFR 63, Est GFR ( Amer) 76, Glucose 95, Calcium 8.6 I & O for Last 24 hours: Intake & Output 11/26/23 11/27/23 11/28/23 11/29/23 23:59 23:59 23:59 23:59 Intake Total 360 / 360 930 / 1410 720 / 720 Output Total 0 / 0 0 / 0 0 / 0 Balance 360 / 360 930 / 1410 720 / 720 Weight 101.746 kg 106.141 kg 100.471 kg Constitutional Constitutional: no acute distress *Routine HEENT Exam Head: Present normocephalic Eye: Present EOMI and PERRL ENT: Present mucous membranes moist *Routine Neck Exam Neck: Present supple; Absent lymphadenopathy *Routine Respiratory Exam Respiratory: Present CTA bilaterally *Routine Cardiovascular Exam Cardiovascular: Present RRR *Routine Abdominal Exam Abdominal: Present soft and normoactive bowel sounds; Absent tenderness *Routine Extremities Exam Extremities: Absent cyanosis, clubbing or edema *Routine Skin Exam Skin: Present warm; Absent rash *Routine Neurological Exam Neurological: Present alert and oriented X3 Results Data Completed and Pending Labs on day of discharge: Labs from last 24 hours 11/29/23 06:29 WBC 7.0 RBC 5.05 Hgb 12.2 Hct 39.3 MCV 77.8 L MCH 24.2 L MCHC 31.1 L RDW 15.8 Plt Count 376 MPV 8.0 Neut % (Auto) 57.3 Lymph % (Auto) 34.9 [place] % (Auto) 4.9 Eos % (Auto) 2.1 Baso % (Auto) 0.8 Neut # (Auto) 4.0 Lymph # (Auto) 2.5 [place] # (Auto) 0.3 Eos # (Auto) 0.1 Baso # (Auto) 0.1 Sodium 137 Potassium 3.9 Chloride 107 Carbon Dioxide 24 Anion Gap 9.9 BUN 18 H Creatinine 1.00 Estimated Creat Clear 125 Estimated GFR 63 Est GFR ( Amer) 76 Glucose 95 Calcium 8.6 DS: Diagnosis Discharge Diagnosis (1) Heart failure with reduced ejection fraction: Status: Acute Code(s): I50.20 - Unspecified systolic (congestive) heart failure (2) cardiomyopathy: Status: Acute Code(s): 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 Meds Home Medications and Allergies Home Medications Medication Instructions Recorded Confirmed Type glycopyrrolate 2 mg tablet 2 mg PO QID 05/05/21 11/27/23 History loratadine 10 mg tablet (Allergy 10 mg PO DAILY Allergy Symptoms 05/05/21 11/27/23 History Relief (loratadine)) omeprazole 40 mg capsule,delayed 40 mg PO DAILY Acid Reflux 05/05/21 11/27/23 History release buspirone 30 mg tablet 30 mg PO BID Anxiety 09/13/23 11/27/23 History dextromethorphan IR 45 2 tab PO DAILY Mood 09/13/23 11/27/23 History mg-bupropion ER 105 mg biphasic tablet (Auvelity) gabapentin 300 mg capsule 600 mg PO TID Pain 09/13/23 11/27/23 History hydroxyzine HCl 50 mg tablet 100 mg PO TIDP PRN Anxiety 09/13/23 11/27/23 History lorazepam 1 mg tablet 1 mg PO TIDP PRN Anxiety 09/13/23 11/27/23 History trazodone 50 mg tablet 50 mg PO HSP PRN Insomnia 09/13/23 11/27/23 History docusate sodium 100 mg capsule 100 mg PO BID Constipation 11/27/23 11/27/23 History ferrous sulfate 325 mg (65 mg 325 mg PO DAILY Supplement 11/27/23 11/27/23 History iron) tablet (FeroSul) ibuprofen 600 mg tablet 600 mg PO Q6HP PRN Mild Pain 11/27/23 11/27/23 History (Scale Score 1-4) empagliflozin 10 mg tablet 10 mg PO DAILY 30 days #30 tabs 11/28/23 Rx (Jardiance) furosemide 20 mg tablet 40 mg (2 x 20 mg) PO DAILY 30 days 11/28/23 Rx #60 tabs sacubitril 24 mg-valsartan 26 mg 1 tab PO BID 30 days #60 tabs 11/28/23 Rx tablet (Entresto) spironolactone 25 mg tablet 25 mg PO DAILY 30 days #30 tabs 11/28/23 Rx New Prescriptions to Start Prescriptions: empagliflozin [Jardiance] Power,Irfan furosemide Power,Irfan sacubitril-valsartan [Entresto] Power,Irfan spironolactone Power,Irfan Allergies Allergy/AdvReac Type Severity Reaction Status Date / Time Penicillins Allergy Intermediate Verified 10/02/23 11:11 Discharge Plan Disposition Patient Disposition: Home, Self-Care Condition: Good Follow up Plan Follow up with: Dana Grover APRN [Nurse Practitioner] - 12/05/23 1:15 pm Sandro Sebasitan [Primary Care Provider] - 12/06/23 11:00 am () Prescriptions/Medication Reconciliation: New spironolactone 25 mg Tablet 25 mg PO DAILY 30 Days Qty: 30 0RF Entresto 24-26 mg Tablet 1 tab PO BID 30 Days Qty: 60 0RF furosemide 20 mg Tablet 40 mg PO DAILY 30 Days Qty: 60 0RF Jardiance 10 mg Tablet 10 mg PO DAILY 30 Days Qty: 30 0RF Continued trazodone 50 mg tablet 50 mg PO HSP PRN (Reason: Insomnia) hydroxyzine HCl 50 mg tablet 100 mg PO TIDP PRN (Reason: Anxiety) Patient Comments: TAKE 1 TO 2 TABLETS 3 TIMES EACH DAY NEEDED FOR ANXIETY buspirone 30 mg tablet 30 mg PO BID Patient Comments: TAKE 1 TABLET 2 TIMES EACH DAY gabapentin 300 mg capsule 600 mg PO TID Patient Comments: TAKE 2 CAPSULES 3 TIMES EACH DAY lorazepam 1 mg tablet 1 mg PO TIDP PRN (Reason: Anxiety) Auvelity 45-105 mg tablet, IR and ER, biphasic 2 tab PO DAILY Patient Comments: TAKE 2 TABLETS EVERY DAY glycopyrrolate 2 mg tablet 2 mg PO QID loratadine [Allergy Relief (loratadine)] 10 mg tablet 10 mg PO DAILY omeprazole 40 mg capsule,delayed release(DR/EC) 40 mg PO DAILY ferrous sulfate [FeroSul] 325 mg (65 mg iron) tablet 325 mg PO DAILY Patient Comments: TAKE 1 TABLET 1 TIME EACH DAY WITH BREAKFAST docusate sodium 100 mg capsule 100 mg PO BID Patient Comments: TAKE 1 CAPSULE 2 TIMES EACH DAY ibuprofen 600 mg tablet 600 mg PO Q6HP PRN (Reason: Mild Pain (Scale Score 1-4)) Patient Comments: TAKE 1 TABLET EVERY 6 HOURS NEEDED FOR MILD PAIN Problem Reconciliation Problems Reviewed?: Yes Patient Discharge Instructions ACTIVITY: Ambulate as tolerated DIET: low salt diet Patient Instructions: DI for Shortness of Breath, How to Manage Shortness of Breath Providers Primary Care Provider: Sandro Sebastian Provider: Emmanuel Steve Attending Provider: Emmanuel Steve
[2023-11-29] MEDS: hydrOXYzine pamoate 25MG CAPSULE 100 MG PO (11:00)
[2023-11-29] MEDS: EMPAGLIFLOZIN 10MG TABLET 10 MG PO (11:00)
--- NOTE | 2023-11-29 11:11 | PC.NURSE ---
Attempted to contact cards at this time about pt's DC plan. At this time insurance has not approved life vest that pt is needing prior to DC.
[2023-11-29 11:32] VITALS: BP 141/85; PULSE 93; RESP 24; TEMP 36.6; O2SAT 99
[2023-11-29 12:00] VITALS: PULSE 95
--- NOTE | 2023-12-04 13:40 | CARE MANAGER ---
Contacted patient related hospital discharge. She states she is aware of follow up appointments and has all new medication. Denies questions or concerns. LUCIA Nunn
== END 2023-11-29 15:45 | disposition home or self-care (01) ==
LOC: ER 12:29 → 2ND 15:11
PROVIDERS: Admitting Provider Internal Medicine; Emergency Provider Emergency Medicine; PCP Family Medicine; Visit Provider Internal Medicine
DX: O90.3 Peripartum cardiomyopathy (principal); E11.9 Type 2 diabetes mellitus without complications; I50.23 Acute on chronic systolic (congestive) heart failure
CPT/HCPCS: 36415; 71045; 80048; 80053; 83735; 83880; 84436; 84443; 84484; 84702; 85025; 93005; 93306; 99291; G0378

== ENCOUNTER 2023-12-05 14:58 | Outpatient (CLI) | payer OTHER, SELFPAY ==
[2023-12-05 15:18] LABS: Basophils # 0.1 K/mm3 (0-0.2); Basophils % 0.9 % (0.1-2.0); Eosinophils # 0.1 K/mm3 (0.0-0.4); Eosinophils % 1.6 % (0.1-12.0); Hematocrit 44.7 % (37.0-47.0); Hemoglobin 13.7 g/dL (12.2-16.2); Lymphocytes # 2.9 K/mm3 (0.7-4.5); Lymphocytes % 33.4 % (10-50); Mean Corpuscular HGB Conc 30.6 g/dL (31.8-35.4); Mean Corpuscular Hemoglobin 24.2 pg (27.0-31.2); Mean Corpuscular Volume 79.2 fl (81-99); Mean Platelet Volume 7.5 fl (7.4-10.4); Monocytes # 0.3 K/mm3 (0.1-1.0); Monocytes % 3.2 % (1.7-9.3); Neutrophils # 5.3 K/mm3 (1.8-7.8); Neutrophils % 61.1 % (37.0-80.0); Platelet Count 419 K/mm3 (142-424); Red Blood Count 5.64 M/mm3 (4.20-5.40); White Blood Count 8.8 K/mm3 (4.8-10.8)
[2023-12-05 15:31] LABS: Chloride 105 mmol/L (98-107)
[2023-12-05 15:32] LABS: Potassium 3.9 mmoL/L (3.5-5.1); Sodium 137 mmol/L (136-145)
[2023-12-05 15:34] LABS: Alanine Aminotransferase 18 U/L (12-78); Alkaline Phosphatase 115 U/L (38-126); Anion Gap 11.9 mEq/L (5-15); Aspartate Amino Transferase 26 U/L (14-36); Bilirubin,Direct 0.2 mg/dl (0.0-0.4); Bilirubin,Indirect 0.1 mg/dL (0.0-0.9); Bilirubin,Total 0.3 mg/dl (0.2-1.3); Blood Urea Nitrogen 18 mg/dl (7-17); Carbon Dioxide 24 mmol/L (22.0-30.0); Estimated Glomerular Filt Rate 40 ml/min (>60); GFR (African American) 48 ML/MIN (>60); Triglycerides 283 mg/dl (30-150); VLDL Cholesterol 57 mg/dL (0-40)
[2023-12-05 15:35] LABS: Albumin Level 4.2 g/dl (3.5-5.0); Calcium 8.8 mg/dl (8.4-10.2); Glucose 103 mg/dl (74-100); HDL Cholesterol 37 mg/dl (40-60); Magnesium 2.2 mg/dl (1.6-2.3); Total Protein,Serum 6.9 g/dl (6.3-8.2)
[2023-12-05 15:46] LABS: Direct LDL Cholesterol 213.22 mg/dL (100-129)
[2023-12-05 15:53] LABS: Chol/HDL Ratio 9.7 (1-3.5); Cholesterol 359 mg/dl (140-200)
[2023-12-05 16:05] LABS: Thyroid Stimulating Hormone 0.69 uIU/mL (0.465-4.68)
[2023-12-05 16:23] LABS: Free T4 (Free Thyroxine) 1.37 ng/dl (0.78-2.19)
== END 2023-12-05 23:59 ==
LOC: LAB 14:59
PROVIDERS: PCP Family Medicine; Visit Provider Internal Medicine
DX: R94.31 Abnormal electrocardiogram [ECG] [EKG] (principal); I42.9 Cardiomyopathy, unspecified; Z79.899 Other long term (current) drug therapy
CPT/HCPCS: 36415; 80048; 80061; 80076; 83735; 84439; 84443; 85025

== ENCOUNTER 2023-12-26 16:02 | Outpatient (CLI) | payer OTHER, SELFPAY ==
[2023-12-26 16:49] LABS: Chloride 107 mmol/L (98-107); Potassium 4.4 mmoL/L (3.5-5.1); Sodium 139 mmol/L (136-145)
[2023-12-26 16:52] LABS: Anion Gap 9.4 mEq/L (5-15); Blood Urea Nitrogen 12 mg/dl (7-17); Carbon Dioxide 27 mmol/L (22.0-30.0); Estimated Glomerular Filt Rate 51 ml/min (>60); GFR (African American) 62 ML/MIN (>60)
[2023-12-26 16:53] LABS: Calcium 9.3 mg/dl (8.4-10.2); Glucose 97 mg/dl (74-100)
== END 2023-12-26 23:59 ==
LOC: LAB 16:02
PROVIDERS: PCP Family Medicine; Visit Provider Nurse Practitioner
DX: R79.89 Other specified abnormal findings of blood chemistry (principal)
CPT/HCPCS: 36415; 80048

== ENCOUNTER 2024-04-08 09:48 | Outpatient (CLI) | payer OTHER, SELFPAY | END 2024-04-08 23:59 | disposition home or self-care (01) | LOC: LAB.DROPOF 04-09 09:49 | PROVIDERS: PCP Family Medicine; Visit Provider Family Medicine | DX: N39.0 Urinary tract infection, site not specified (principal) | CPT/HCPCS: 87086; 87088; 87186 ==

== ENCOUNTER 2024-05-14 15:00 | Outpatient (CLI) | payer BC, SELFPAY ==
--- NOTE | 2024-05-14 15:49 | CA_ITS ---
APPROVED REPORT EXAM: Comprehensive 2D, Doppler, and color-flow Echocardiogram Fur Liner: Alysa Gamino RT(R) Ht: 5 ft 3 in Wt: 180lbs BSA: 1.85 BP: 82/43 mmHg Indications: CM, EF 20% HFrEF echo 11/28/23, hx renal stent, abn EKG, syncope and blurred vision, CP, DM,family history of HD. 2D Dimensions LVEF (Harvey's) 38.50 % F: 54 - 74 LV Volume 93.10 mL F: 46 - 106 LV Volume Index 50.3 mL/m2 F: 29 - 61 LA Volume 14.80 mL LA Volume Index 8.00 mL/m2 (M/F) 16-34 EF AP4 24.50 % EF AP2 49.6 % EF BP 38.5 % GL Strain -7.7 % M-Mode Dimensions RVDd 2.58 cm (0.9-2.6) LA Diam 3.05 cm (1.9-4.0) LVDd 5.01 cm (3.5-5.7) LVDs 4.61 cm (3.5-5.7) IVSd 0.86 cm (0.6-1.1) PWd 0.86 cm (0.6-1.1) EF (Teich) 17.70% FS 8.00% EDV (Teich) 118.80 mL ESV (Teich) 97.80 mL LV Diastology E Decel Time 150 (160-240 msec) E/A Ratio 1.1 Mitral Valve MV E Max Conrad. 52.0 (40-130 cm/s) MV A Velocity 47.0 (40-130 cm/s) E/A Ratio 1.11 MV PHT 44.0 ms Left Ventricle The left ventricle is normal size. The left ventricular systolic function is severely reduced. There is normal left ventricular wall thickness. There is severe global hypokinesis present. The septum is asynchronous. Grade 1 diastolic dysfunction. LVEF is 20%. Right Ventricle The right ventricle is normal size. The right ventricular systolic function is normal. Atria The left atrium size is normal. The right atrium size is normal. There is no Doppler evidence of interatrial shunt. Aortic Valve The aortic valve opens well. There is no aortic valvular stenosis. No aortic regurgitation is present. Mitral Valve The mitral valve is normal in structure. No evidence of mitral valve stenosis. Trace mitral regurgitation. Tricuspid Valve Tricuspid valve is grossly normal in structure and function. Trace tricuspid regurgitation. There is insufficient TR jet to estimate RVSP. Pulmonic Valve The pulmonary valve is normal in structure. Trace pulmonic regurgitation. Great Vessels The aortic root is normal in size. The ascending aorta is normal in size. IVC is normal in size and collapses >50% with inspiration. Pericardium There is no pericardial effusion. Other Information Study Quality: Adequate Conclusion Severe reduction in LV systolic function (LVEF 20%). Asynchronous septum. No significant valvular stenosis or regurgitation. Compared to prior study from 11/2023, the LVEF is overall unchanged. Electronically signed by : Mireya Cunningham MD 05/16/2024 23:44:53
[2024-05-14 16:09] LABS: Basophils # 0.1 K/mm3 (0-0.2); Eosinophils # 0.1 K/mm3 (0.0-0.4); Eosinophils % 2.7 % (0.1-12.0); Hematocrit 40.5 % (37.0-47.0); Hemoglobin 12.8 g/dL (12.2-16.2); Lymphocytes % 38.9 % (10-50); Mean Corpuscular HGB Conc 31.7 g/dL (31.8-35.4); Mean Corpuscular Hemoglobin 27.3 pg (27.0-31.2); Mean Corpuscular Volume 86.1 fl (81-99); Mean Platelet Volume 8.7 fl (7.4-10.4); Monocytes # 0.2 K/mm3 (0.1-1.0); Monocytes % 4.1 % (1.7-9.3); Neutrophils # 2.8 K/mm3 (1.8-7.8); Neutrophils % 53.2 % (37.0-80.0); Platelet Count 225 K/mm3 (142-424); Red Cell Distribution Width 13.1 % (11.5-17.5); White Blood Count 5.2 K/mm3 (4.8-10.8)
[2024-05-14 17:59] LABS: Alanine Aminotransferase 14 U/L (12-78); Albumin Level 3.9 g/dl (3.5-5.0); Alkaline Phosphatase 66 U/L (38-126); Anion Gap 9.3 mEq/L (5-15); Aspartate Amino Transferase 23 U/L (14-36); Bilirubin,Indirect 0.5 mg/dL (0.0-0.9); Bilirubin,Total 0.5 mg/dl (0.2-1.3); Bilirubin,Unconjugated 0.5 mg/dL (0.0-1.1); Blood Urea Nitrogen 19 mg/dl (7-17); Calcium 9.1 mg/dl (8.4-10.2); Carbon Dioxide 23 mmol/L (22.0-30.0); Chloride 107 mmol/L (98-107); Chol/HDL Ratio 3.2 (1-3.5); Cholesterol 112 mg/dl (140-200); Estimated Glomerular Filt Rate 46 ml/min (>60); GFR (African American) 56 ML/MIN (>60); Glucose 101 mg/dl (74-100); HDL Cholesterol 35 mg/dl (40-60); Magnesium 1.7 mg/dl (1.6-2.3); Potassium 4.3 mmoL/L (3.5-5.1); Sodium 135 mmol/L (136-145); Total Protein,Serum 6.5 g/dl (6.3-8.2); Triglycerides 100 mg/dl (30-150); VLDL Cholesterol 20 mg/dL (0-40)
[2024-05-14 18:10] LABS: Direct LDL Cholesterol 55.01 mg/dL (100-129)
[2024-05-14 18:20] LABS: Free T4 (Free Thyroxine) 0.99 ng/dl (0.78-2.19)
[2024-05-14 18:22] LABS: Thyroid Stimulating Hormone 1.51 uIU/mL (0.465-4.68)
== END 2024-05-14 23:59 | disposition home or self-care (01) ==
PROVIDERS: PCP Family Medicine; Visit Provider Internal Medicine
DX: R94.31 Abnormal electrocardiogram [ECG] [EKG] (principal); R06.09 Other forms of dyspnea; I42.9 Cardiomyopathy, unspecified; Z82.49 Family history of ischemic heart disease and other diseases of the circulatory system; I50.20 Unspecified systolic (congestive) heart failure; R55 Syncope and collapse
CPT/HCPCS: 36415; 80048; 80061; 80076; 83735; 84439; 84443; 85025; 93306

== ENCOUNTER 2024-05-26 08:38 | Day surgery (SDC) | payer BC, SELFPAY ==
[2024-05-26] VITALS (7 sets, daily range): BP systolic 91–106; BP diastolic 54–64; PULSE 63–78; RESP 15–19; O2SAT 92–100; BMI 31.8
--- NOTE | 2024-05-26 07:20 | IR_ITS ---
APPROVED REPORT Patient Location: Outpatient Hardboard Grinder: LORI Peña RT (R) PROCEDURES Right heart catheterization INDICATION Systolic congestive heart failure, Class III [facility] Informed consent was obtained prior to the procedure. COMPLICATIONS None Estimated Blood Loss: Less than 10 mls TECHNIQUE One percent lidocaine was used to anesthetize the right anterior aspect of the neck. A first aid officer needle was used to identify the right internal jugular vein. Following this a larger cannulation needle was used to cannulate the right internal jugular vein and a wire was passed into the vein. Prior to the 7 [place]i sheath being inserted the wire was confirmed under fluoroscopic guidance to be in the inferior vena cava. A 7 [place]i sheath was introduced and a Mcleod-Ambrosio catheter was floated using hemodynamic waveforms in the pulmonary artery, right ventricle , and right atrium. Saturations were obtained in the pulmonary artery and the right atrium. At the end of the procedure the patient was transferred to the postop holding area in stable condition for sheath removal. ANGIOGRAPHIC RESULTS Right atrial pressure 12 mmHg Right ventricular pressure 30/12 mmHg Pulmonary artery pressure 30/15 Pulmonary artery occlusion pressure 11 mmHg Right atrial saturation 75% Pulmonary artery saturation 75% Hemoglobin 13.1 Aortic saturation 96% Cardiac output 6.4 L/min Cardiac index 3.4 PLAN 1. Further treatment per primary team Electronically signed by : Braulio Pradhan MD 05/26/2024 12:03:23
[2024-05-26 09:08] LABS: Basophils # 0.1 K/mm3 (0-0.2); Basophils % 1.4 % (0.1-2.0); Eosinophils # 0.2 K/mm3 (0.0-0.4); Eosinophils % 3.9 % (0.1-12.0); Hematocrit 42.1 % (37.0-47.0); Hemoglobin 13.1 g/dL (12.2-16.2); Lymphocytes # 1.9 K/mm3 (0.7-4.5); Lymphocytes % 33.4 % (10-50); Mean Corpuscular HGB Conc 31.2 g/dL (31.8-35.4); Mean Corpuscular Volume 86.5 fl (81-99); Mean Platelet Volume 8.3 fl (7.4-10.4); Monocytes # 0.3 K/mm3 (0.1-1.0); Monocytes % 5.1 % (1.7-9.3); Neutrophils # 3.2 K/mm3 (1.8-7.8); Neutrophils % 56.3 % (37.0-80.0); Platelet Count 247 K/mm3 (142-424); Red Blood Count 4.87 M/mm3 (4.20-5.40); Red Cell Distribution Width 13.6 % (11.5-17.5); White Blood Count 5.6 K/mm3 (4.8-10.8)
[2024-05-26 09:11] LABS: Chloride 109 mmol/L (98-107); Sodium 140 mmol/L (136-145)
[2024-05-26 09:14] LABS: Anion Gap 7.9 mEq/L (5-15); Blood Urea Nitrogen 9 mg/dl (7-17); Calcium 8.5 mg/dl (8.4-10.2); Carbon Dioxide 26 mmol/L (22.0-30.0); Creatinine Clearance Estimated 77 mL/min (50-200); Estimated Glomerular Filt Rate 46 ml/min (>60); GFR (African American) 56 ML/MIN (>60); Glucose 87 mg/dl (74-100)
[2024-05-26 09:17] LABS: Potassium 2.9 mmoL/L (3.5-5.1)
[2024-05-26 09:31] LABS: HCG Qualitative, Serum Negative (Negative)
[2024-05-26] MEDS: POTASSIUM CHLORIDE 20MEQ TAB 40 MEQ PO (10:22)
[2024-05-26] MEDS: 0.9 % SODIUM CHLORIDE 500 ML 25 ML IV (11:12)
[2024-05-26] MEDS: diphenhydrAMINE 50MG/ML VIAL 50 MG IV (11:12)
[2024-05-26] MEDS: LIDOCAINE 1% 10ML MDV 20 ML IJ (11:12)
[2024-05-26] MEDS: HEPARIN 1,000 UNITS/500ML NS (CATH LAB) 3000 UNIT IV (11:12)
[2024-05-26] MEDS: FENTANYL 100MCG/2ML VIAL 50 MCG IV ×2 (11:29→11:44)
[2024-05-26] MEDS: MIDAZOLAM HCL 1MG/1ML 5ML VIAL 1 MG IV ×2 (11:29→11:44)
[2024-05-26 12:59] LABS: CATHL Arterial O2 SAT 75 % (90-100); CATHL Venous O2 SAT 75 % (75-80)
== END 2024-05-26 13:18 | disposition home or self-care (01) ==
PROVIDERS: PCP Family Medicine; Visit Provider Internal Medicine
DX: I50.20 Unspecified systolic (congestive) heart failure (principal); I42.9 Cardiomyopathy, unspecified; I95.9 Hypotension, unspecified; I11.0 Hypertensive heart disease with heart failure
CPT/HCPCS: 80048; 82810; 84703; 85025; 93451; 99152; 99153; C1894; J1200; J1644; J2250; J3010

== ENCOUNTER 2024-06-12 10:16 | Outpatient (CLI) | payer BC, SELFPAY ==
--- NOTE | 2024-06-12 10:25 | MR_ITS ---
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 Software platform sequences were performed using the Siemens Optichron MR B19 platform. A set of three-plane, low-resolution, large [id number] localizers were initially acquired. Then axial, coronal, sagittal TrueFISP, as well as axial HASTE images, were obtained. These were followed by gated TrueFISP breathold cinematic sequences obtained in the short axis with 8 mm slices and 2 mm gaps, 2-chamber (vertical long axis), 3-chamber, 4-chamber (horizontal long axis). A bolus of contrast was injected intravenously with first-pass sequences obtained in the short axis and four-chamber planes. After approximately 10 minutes, a TI sponge press operator sequence was performed to determine the optimal TI time. Using the optimized TI time, delayed contrast enhancement segmented inversion???recovery TurboFLASH sequences were obtained in the short axis, 2-chamber, 3-chamber, and 4-chamber projections. 2D-velocity phase mapping was performed. Functional parameters were calculated by offline analysis on an independent workstation ([employer] Platform, [place]). Contrast: ProHance??? (Gadoteridol) FINDINGS MORPHOLOGY AND FUNCTION Left ventricle: The left ventricle is nor dilated. The indexed left ventricular end-diastolic volume (LVEDVi) is 98 ml/m2 (reference range 57-105 ml/m2 in males, 56-96 ml/m2 in females). There is severe reduction in left ventricular systolic function. There is normal left ventricular wall thickness. The septum is asynchronous. There are no regional wall motion abnormalities noted. LVEF is calculated at 28.6% (reference range 57-77%). Right ventricle: The right ventricle is normal in size. The indexed right ventricular end-diastolic volume (RVEDVi) is 63 ml/m2 (reference range 61-121 ml/m2 in males, 48-112 ml/m2 in females). Normal right ventricular systolic function is present. RVEF is calculated at 45.7% (reference range 52-72% in males, 51-71% in females). Atria: The left atrium is normal in size. The maximum indexed left atrial volume is 33 ml/m2 (reference range 26-52 ml/m2 in males, 27-53 ml/m2 in females). The right atrium is normal in size. The maximum indexed right atrial volume is 26 ml/m2 (reference range 18-90 ml/m2). Aorta: The diameter of the aortic annulus is normal, measuring 19 mm (coronal view reference range 21-30 mm in males, 19-27 mm in females). The diameter of the aortic sinus is normal, measuring 28 mm (coronal view reference range 25-42 mm in males, 24-36 mm in females). The diameter of the sinotubular junction is normal, measuring 26 mm (coronal view reference range 18-32 mm in males, 18-28 mm in females). The diameters of the ascending and descending thoracic aorta are normal. Main pulmonary artery: The main pulmonary artery diameter is normal. Pericardium: The pericardial thickness is normal. The pericardial thickness measures 2.0 mm (normal < 4.0 mm). There is no pericardial effusion. VALVES Mild mitral regurgitation is present. Mild tricuspid regurgitation was present. Systolic anterior motion of the mitral valve is not visualized. Ratio of pulmonary to systemic flow, Qp:Qs ratio = 0.9 (normal < or = 1.2, hemodynamically significant shunt > 1.5), demonstrating no evidence of hemodynamically significant shunt. TISSUE CHARACTERIZATION Resting Perfusion: Normal myocardial blood flow at rest. No evidence of resting hypoperfusion. Myocardial Fibrosis and/or edema: Normal gadolinium kinetics are present. No evidence of late gadolinium enhancement is noted, consistent with absence of myocardial scarring, infarction, or necrosis. T2-weighted imaging demonstrates no evidence of myocardial edema or inflammation. OTHER Trivial bilateral pleural effusions are present. IMPRESSION Dilated LV with severe reduction in LV systolic function. LVEDVi= 98 ml/m2 and LVEF= 28.6%. Asynchronous septum. Normal RV size with normal RV systolic function. RVEDVi= 63 ml/m2 and RVEF= 45.7%. No atrial enlargement. Mild MR and TR are present. No CMR evidence of myocardial scarring, infarction, or necrosis. No evidence of myocardial edema or inflammation. Perfusion analysis demonstrates normal blood flow at rest with no evidence of resting hypoperfusion. Ratio of pulmonary to systemic flow, Qp:Qs ratio = 0.9 (normal < or = 1.2, hemodynamically significant shunt > 1.5), demonstrating no evidence of hemodynamically significant shunt. Trivial bilateral pleural effusions are present. Overall, this CMR findings are most consistent with non-ischemic, idiopathic, dilated cardiomyopathy with reduction in biventricular systolic function (LVEF 29%). The severe reduction in LV systolic function has been persistent for > 3 months with a management course complicated by patient's inability to tolerate GDMT due to persistent hypotension. In the setting of concomitant LBBB, GAS METER READER-D evaluation is recommended. COMPARISON None CRITICAL RESULT None COMMUNICATION The above findings, including the overall impression and recommendations, were communicated to the patient and her family at the time of her outpatient routine visit to cardiology clinic prior to dictation of this report. The findings of this cardiac MR were reviewed, reported, and signed by Brendon Cunningham MD (Senior Clinical Data Analyst). Conclusion Electronically signed by : Mireya Cunningham MD 06/24/2024 01:01:39
[2024-06-12] MEDS: GADOTERIDOL INJ 20ML SYRINGE 19 ML IV (11:18)
[2024-06-12] MEDS: SODIUM CHLORIDE 0.9% 10ML SYR (RAD ONLY) 10 ML IV (11:18)
[2024-06-12] MEDS: 0.9 % SODIUM CHLORIDE 50 ML VIAL 25 ML IV (11:18)
== END 2024-06-12 23:59 | disposition home or self-care (01) ==
PROVIDERS: PCP Family Medicine; Visit Provider Internal Medicine
DX: I42.8 Other cardiomyopathies (principal); I50.20 Unspecified systolic (congestive) heart failure; I95.9 Hypotension, unspecified
CPT/HCPCS: 75561; A9576

== ENCOUNTER 2024-06-24 08:44 | Day surgery (SDC) | payer BC, SELFPAY ==
[2024-06-24] VITALS (8 sets, daily range): BP systolic 129–174; BP diastolic 71–95; PULSE 77–117; RESP 18–20; TEMP 36.9; O2SAT 95–100; BMI 31.1
--- NOTE | 2024-06-24 07:12 | IR_ITS ---
APPROVED REPORT Patient Location: Outpatient Chronic Condition Nurse: LORI Corado RT (R) PROCEDURES 1. Pocket formation for biventricular pacemaker generator with cardiac resynchronization/defibrillator therapy. 2. Placement of atrial sensing and pacing lead into the right atrial appendage. 3. Placement of a right ventricular sensing, pacing and shocking lead in the right ventricular apex. 4. Placement of left ventricular sensing pacing lead via the coronary sinus. 5. Permanent cardiac resynchronization therapy with ICD implantation/biventricular pacemaker. INDICATION Systolic Congestive Heart Failure, ejection <20%, Wide QRS >150ms, [place] Heart Assoication Class 3 Congestive Heart Failure, Idiopathic Cardiomyopathy with Left Bundle Branch Block Informed consent was obtained prior to the procedure. COMPLICATIONS None Estimated Blood Loss: Less than 10 mls TECHNIQUE 1% Lidocaine with epinephrine used to anesthetized the left anterior aspect of the chest. Scalpel was used to make the initial cutaneous incision while electrocautery was used to dissect down tinto the fascia. The fascia was lifted off the pectoralis muscle and digitally manipulated creating a pocket for the defibrillator. The patient was then placed in Trendelenburg position and the subclavian vein was accessed 3 times via the Selinger technique. A 8 Slovenian sheath was placed under fluoroscopic guidance into the subclavian vein. The dilator was removed from the sheath. Using fluoroscopic guidance, the ventricular lead was placed into the right ventricular apex, screwed and secured into place. Electronic interrogation proved acceptable thresholds and voltage within the lead. Using 3-0 silk, the ventricular lead was then secured into place and sheath peeled away. Following this, a 10.5 [place]ian sheath and dilator was then placed over one of the wires while keeping the other wire in place within the subclavian vein. The dilator was removed from the sheath. Using fluoroscopic guidance, contrast was used to visualize the coronary sinus, the left ventricular lead was placed into the coronary sinus. Electronic interrogation proved acceptable thresholds and voltage within the lead. Using 3-0 silk, the left ventricular lead was then secured into place and sheath peeled away.An additional 6 Slovenian fresh sheath and dilator was placed over the existing wire. Using fluoroscopic guidance, the atrial lead was then placed into the right atrial appendage and screwed and secured in place. Electrical interrogation demonstrated acceptable thresholds and voltage number. The atrial lead was then secured into place using 3-0 silk and sheath peeled away. 1 gram of clindamycin was used to flush the pocket. All 3 leads were connected to generator and tested via computer. The defibrillator then secured to the fascia. Monocryl was used to close the subcutaneous layers while bushra were used to close the cutaneous layer. A pressure dressing was placed and the patient was transferred to the postop holding area in stable condition for postoperative care. INTERROGATION Generator Model number: [place] HF, [id number] Generator Serial number: [id number] Atrial lead model number: Tendril STS, 46cm, [id number] Atrial lead serial number: [id number] P-wave: 2.5-4 mV Threshold: 2.5V@0.7ms Right Ventricular lead model number: Optisure, 58cm, [id number] Right Ventricular lead serial number: [id number] R-wave: 11.8 mV Impedance: 510 ohms Threshold: 0.5V@0.5ms Left Ventricular lead model number: Quartet, 86cm, [id number] Left Ventricular lead serial number: [id number] Impedance: 1200 ohms Threshold: 1.625V@0.5ms Pacing Parameters: Mode: DDDR Base/Max Track:60 ppm / 130 ppm No diaphragmatic stimulation at 10 volts. IMPRESSION 1. Successful Pocket formation for biventricular pacemaker generator with cardiac resynchronization/defibrillator therapy. 2. Successful placement of right atrial sensing and pacing lead into the right atrial appendage. 3. Successful placement of a right ventricular sensing, pacing and shocking lead in the right ventricular apex. 4. Successful placement of left ventricular sensing pacing lead via the coronary sinus. 5. Successful permanent cardiac resynchronization plus AICD generator device. PLAN 1. Post op wound care, follow up office visit. Electronically signed by : Braulio Pradhan MD 06/25/2024 11:37:19
[2024-06-24 09:20] LABS: Basophils # 0.1 K/mm3 (0-0.2); Basophils % 2.2 % (0.1-2.0); Eosinophils # 0.3 K/mm3 (0.0-0.4); Eosinophils % 5.2 % (0.1-12.0); Hematocrit 40.5 % (37.0-47.0); Hemoglobin 13.4 g/dL (12.2-16.2); Lymphocytes # 1.9 K/mm3 (0.7-4.5); Mean Corpuscular HGB Conc 33.1 g/dL (31.8-35.4); Mean Corpuscular Hemoglobin 27.6 pg (27.0-31.2); Mean Corpuscular Volume 83.3 fl (81-99); Monocytes # 0.3 K/mm3 (0.1-1.0); Monocytes % 5.1 % (1.7-9.3); Neutrophils # 2.4 K/mm3 (1.8-7.8); Neutrophils % 49.6 % (37.0-80.0); Platelet Count 262 K/mm3 (142-424); Red Blood Count 4.86 M/mm3 (4.20-5.40); Red Cell Distribution Width 14.1 % (11.5-17.5); White Blood Count 4.9 K/mm3 (4.8-10.8)
--- NOTE | 2024-06-24 09:27 | EXP.ANES.CKL ---
[facility] Disclaimer: The information contained in this section may have been updated after the patient was seen, as this information can be updated by other users. Medical History NYHA class 3 systolic congestive heart failure with reduced left ventricular function NYHA class 2 heart failure with reduced ejection fraction High pulmonary arterial pressure Hypotension Syncope Elevated serum creatinine Creatinine elevation Diabetes mellitus Kidney stone Family history of ischemic heart disease (IHD) Umbilical hernia Surgical History History of renal stent History of oral surgery History of breast biopsy Social History Smoking Status: Unknown if ever smoked alcohol intake: never substance use type: denies use current occupational status: employed Travel in the last 8 weeks: Inside the [place] household members: family housing: house current occupational exposures/hazards: No caffeine: Yes [facility] Anesthesia Checklist Patient Identification Patient Identification: Arm Band Structural Data Admitted From: Home Planned Operative Procedure/s: Biventricular AICD Consent for Planned Operative Procedure(s) Verified: Yes Verified Documents: Surgical Consent and History and Physical NPO Status Verified Time NPO: 00:00 Additional verifications Anesthesia Reactions: No (nausea) Hx Blood Transfusions: No Blood Transfusion Reaction: No Airway Assessment Mallampati Score:: Class II C-Spine Mobility Assessed: Yes TMJ Mobility Assessed: Yes Dentition: Good Dentition Neurological Assessment Level of Consciousness: Awake, Alert and Appropriate Anesthesia Plan Anesthesia Risk discussed: Yes Anesthesia Plan: Verified ASA Class: IV Anesthesia Type: MAC
[2024-06-24 09:48] LABS: Chloride 108 mmol/L (98-107); Sodium 134 mmol/L (136-145)
[2024-06-24 09:49] LABS: Potassium 3.9 mmoL/L (3.5-5.1)
[2024-06-24 09:51] LABS: Blood Urea Nitrogen 9 mg/dl (7-17); Creatinine Clearance Estimated 98 mL/min (50-200); Estimated Glomerular Filt Rate 63 ml/min (>60); GFR (African American) 76 ML/MIN (>60)
[2024-06-24 09:52] LABS: Anion Gap 8.9 mEq/L (5-15); Calcium 8.5 mg/dl (8.4-10.2); Carbon Dioxide 21 mmol/L (22.0-30.0); Glucose 96 mg/dl (74-100)
[2024-06-24] MEDS: LORazepam 2MG/ML VIAL 2 MG IV (09:52)
[2024-06-24] MEDS: MIDAZOLAM 2MG/2ML VIAL 1 MG IV (10:05)
[2024-06-24] MEDS: LIDOCAINE 1% W/EPI 1:100,000 20ML VIAL 20 ML SQ (11:58)
[2024-06-24] MEDS: CLINDAMYCIN PHOSPHATE 900 MG in 0.9 % SODIUM CHLORIDE 100 ML 100 MG TP (11:59)
[2024-06-24] MEDS: CLINDAMYCIN PHOSPHATE/D5W 900 MG/50 ML PIGGYBACK 100 MG IV (11:59)
--- NOTE | 2024-06-24 13:15 | XR_ITS ---
FINAL REPORT CLINICAL HISTORY: Confirm pacemaker/AID placement COMPARISON: 11/27/2023 FINDINGS: A single portable view of the chest was obtained. Cardiomegaly is noted. A left subclavian ICD is present. The mediastinum is within normal limits. No acute pulmonary abnormality is identified. The bony thorax is intact. IMPRESSION: No pneumothorax status post left subclavian ICD placement. Reviewed, Interpreted and Dictated by Blaze Rajput III, MD Transcribed by Brielle Og Authenticated and . [facility]
--- NOTE | 2024-06-24 13:30 | CA_ITS ---
APPROVED REPORT EXAM: Limited 2D Echocardiogram Evs Tech: June Martínez RVT Ht: 5 ft 3 in Wt: 176lbs BSA: 1.83 BP: 134/89 mmHg Indications: S/P PACEMAKER PLACEMENT,CHECK FOR PERICARDIAL EFFUSION,CHF TDS-PT FLAT ON BACK,LIMITED WINDOWS Other Information Study Quality: Fair Conclusion This is a limited TTE to evaluate for pericardial effusion in the setting of post ELECTRONIC DIE MAKER-D placement. Limited windows were obtained. There is no evidence of pericardial effusion in the available windows. Electronically signed by : Mireya Cunningham MD 06/25/2024 01:13:23
[2024-06-24] MEDS: METOPROLOL TARTRATE 5MG/5ML VIAL 5 MG IV (13:47)
[2024-06-24] MEDS: IOPAMIDOL-370 (76%);100ML BOTTLE 60 ML IV (13:56)
[2024-06-24] MEDS: OXYCODONE 5MG W/APAP 325MG TABLET 2 EACH PO (14:54)
== END 2024-06-24 15:09 | disposition home or self-care (01) ==
LOC: CATHLAB 08:44
PROVIDERS: PCP Family Medicine; Visit Provider Internal Medicine
PROC: 0JH609Z Insertion of Cardiac Resynchronization Defibrillator Pulse Generator into Chest Subcutaneous Tissue and Fascia, Open Approach (ICD-10-PCS; CPT 33249; principal; 2024-06-24 10:30)
DX: I50.23 Acute on chronic systolic (congestive) heart failure (principal); Z45.02 Encounter for adjustment and management of automatic implantable cardiac defibrillator; I25.5 Ischemic cardiomyopathy; Z79.899 Other long term (current) drug therapy; E11.9 Type 2 diabetes mellitus without complications; Z82.49 Family history of ischemic heart disease and other diseases of the circulatory system; I27.21 Secondary pulmonary arterial hypertension
CPT/HCPCS: 33225; 33249; 71045; 80048; 85025; 93308; 99152; 99153; C1769; C1882; C1895; C1898; C1900; J2060; J2250; J2704; Q9967

== ENCOUNTER 2024-07-17 10:21 | Outpatient (CLI) | payer BC, SELFPAY | END 2024-07-17 23:59 | disposition home or self-care (01) | LOC: LAB.DROPOF 07-20 10:22 | PROVIDERS: PCP Family Medicine; Visit Provider Family Medicine | DX: R39.9 Unspecified symptoms and signs involving the genitourinary system (principal) | CPT/HCPCS: 87086; 87088; 87186 ==

== ENCOUNTER 2024-07-22 15:47 | Outpatient (CLI) | payer BC, SELFPAY ==
--- NOTE | 2024-07-22 15:50 | XR_ITS ---
FINAL REPORT CLINICAL HISTORY: pain and swelling 2nd finger COMPARISON: None FINDINGS: RIGHT HAND: 3 views of the right hand were obtained. There is no acute fracture or dislocation. Visualized joint spaces are normally aligned. Soft tissues are unremarkable. IMPRESSION: No acute bony abnormality. Reviewed, Interpreted and Dictated by Blaze Rajput III, MD Transcribed by Pura Porras Authenticated and . [facility]
== END 2024-07-22 23:59 | disposition home or self-care (01) ==
LOC: RAD 15:48
PROVIDERS: PCP Family Medicine; Visit Provider Family Medicine
DX: M79.644 Pain in right finger(s) (principal)
CPT/HCPCS: 73130

== ENCOUNTER 2024-08-10 13:19 | Outpatient (RCR) | payer BC, SELFPAY | END 2024-08-10 23:59 | disposition home or self-care (01) | LOC: PT 13:19 | PROVIDERS: Visit Provider Internal Medicine | DX: I50.20 Unspecified systolic (congestive) heart failure (principal) ==

== ENCOUNTER 2024-09-11 12:39 | Outpatient (CLI) | payer BC, SELFPAY | END 2024-09-11 23:59 | disposition home or self-care (01) | LOC: LAB.DROPOF 09-14 12:40 | PROVIDERS: PCP Nurse Practitioner Family; Visit Provider Nurse Practitioner Family | DX: N39.0 Urinary tract infection, site not specified (principal); B96.20 Unspecified Escherichia coli [E. coli] as the cause of diseases classified elsewhere | CPT/HCPCS: 87086; 87088; 87186 ==

== ENCOUNTER 2024-10-16 14:04 | Outpatient (CLI) | payer BC, SELFPAY ==
--- NOTE | 2024-10-16 14:08 | CA_ITS ---
APPROVED REPORT EXAM: Limited 2D Echocardiogram Roller Man: Samantha Lawton RDCS Ht: 5 ft 3 in Wt: 162lbs BSA: 1.77 BP: 128/86 mmHg Indications: CHECK EF,H/O CMP,HRrEF, 05/09 EF 20% M-Mode Dimensions RVDd 2.79 cm (0.9-2.6) LA Diam 3.01 cm (1.9-4.0) LVDd 5.15 cm (3.5-5.7) LVDs 4.04 cm (3.5-5.7) IVSd 0.72 cm (0.6-1.1) PWd 0.64 cm (0.6-1.1) EF (Teich) 43.40% FS 21.60% EDV (Teich) 126.60 mL ESV (Teich) 71.70 mL Other Information Study Quality: Fair Conclusion This is a limited TTE to evaluate for LV systolic function following the implantation of UNDERWRITING SUPPORT SPECIALIST-D device. Limited windows are obtained. The left ventricle is normal in size. There is normal LV wall thickness. There is moderate reduction global LV systolic function. No regional wall motion abnormalities are noted. LVEF is 35-40%. Compared to prior study from 06/24/2024, the LVEF is improved but remains reduced. Electronically signed by : Mireya Cunningham MD 10/17/2024 21:30:04
== END 2024-10-16 23:59 | disposition home or self-care (01) ==
PROVIDERS: PCP Family Medicine; Visit Provider Internal Medicine
DX: I50.20 Unspecified systolic (congestive) heart failure (principal)
CPT/HCPCS: 93308

== ENCOUNTER 2024-10-20 09:41 | Outpatient (CLI) | payer BC, SELFPAY | END 2024-10-20 23:59 | disposition home or self-care (01) | LOC: LAB.DROPOF 10-21 09:41 | PROVIDERS: PCP Nurse Practitioner Family; Visit Provider Nurse Practitioner Family | DX: R39.9 Unspecified symptoms and signs involving the genitourinary system (principal) | CPT/HCPCS: 87086 ==

== ENCOUNTER 2024-10-26 15:46 | Outpatient (CLI) | payer BC, SELFPAY ==
[2024-10-26 17:01] LABS: Basophils % 0.4 % (0.1-2.0); Eosinophils # 0.2 K/mm3 (0.0-0.4); Eosinophils % 2.1 % (0.1-12.0); Hematocrit 41.6 % (37.0-47.0); Lymphocytes # 2.5 K/mm3 (0.7-4.5); Lymphocytes % 33.9 % (10-50); Mean Corpuscular HGB Conc 33.7 g/dL (31.8-35.4); Mean Corpuscular Hemoglobin 26.4 pg (27.0-31.2); Mean Corpuscular Volume 78.3 fl (81-99); Mean Platelet Volume 10.3 fl (7.4-10.4); Monocytes # 0.4 K/mm3 (0.1-1.0); Monocytes % 5.9 % (1.7-9.3); Neutrophils # 4.3 K/mm3 (1.8-7.8); Neutrophils % 57.2 % (37.0-80.0); Platelet Count 358 K/mm3 (142-424); Red Blood Count 5.31 M/mm3 (4.20-5.40); Red Cell Distribution Width 13.7 % (11.5-17.5); White Blood Count 7.5 K/mm3 (4.8-10.8)
[2024-10-26 18:13] LABS: Albumin Level 4.7 g/dl (3.5-5.0); Chloride 104 mmol/L (98-107)
[2024-10-26 18:14] LABS: Potassium 3.7 mmoL/L (3.5-5.1); Sodium 136 mmol/L (136-145)
[2024-10-26 18:16] LABS: Alanine Aminotransferase 15 U/L (12-78); Anion Gap 11.7 mEq/L (5-15); Aspartate Amino Transferase 20 U/L (14-36); Bilirubin,Unconjugated 0.3 mg/dL (0.0-1.1); Blood Urea Nitrogen 7 mg/dl (7-17); Carbon Dioxide 24 mmol/L (22.0-30.0); Estimated Glomerular Filt Rate 63 ml/min (>60); GFR (African American) 76 ML/MIN (>60); Total Protein,Serum 7.1 g/dl (6.3-8.2)
[2024-10-26 18:17] LABS: Alkaline Phosphatase 63 U/L (38-126); Bilirubin,Direct 0.2 mg/dl (0.0-0.4); Bilirubin,Indirect 0.3 mg/dL (0.0-0.9); Bilirubin,Total 0.5 mg/dl (0.2-1.3); Calcium 9.3 mg/dl (8.4-10.2); Chol/HDL Ratio 9.2 (1-3.5); Cholesterol 268 mg/dl (140-200); Glucose 77 mg/dl (74-100); HDL Cholesterol 29 mg/dl (40-60); Magnesium 1.9 mg/dl (1.6-2.3); Triglycerides 146 mg/dl (30-150); VLDL Cholesterol 29 mg/dL (0-40)
[2024-10-26 18:28] LABS: Direct LDL Cholesterol 189.58 mg/dL (100-129)
[2024-10-26 18:32] LABS: Free T4 (Free Thyroxine) 1.34 ng/dl (0.78-2.19)
== END 2024-10-26 23:59 | disposition home or self-care (01) ==
LOC: LAB 15:47
PROVIDERS: PCP Family Medicine; Visit Provider Internal Medicine
DX: I47.10 Supraventricular tachycardia, unspecified (principal); I50.20 Unspecified systolic (congestive) heart failure; I27.21 Secondary pulmonary arterial hypertension; R06.09 Other forms of dyspnea; I42.9 Cardiomyopathy, unspecified; Z82.49 Family history of ischemic heart disease and other diseases of the circulatory system
CPT/HCPCS: 36415; 80048; 80061; 80076; 83735; 84439; 84443; 85025

== ENCOUNTER 2024-11-05 15:00 | Outpatient (CLI) | payer BC, SELFPAY ==
--- NOTE | 2024-11-05 15:05 | CT_ITS ---
FINAL REPORT TECHNIQUE: Thin section axial images were obtained from the lung apices through the upper abdomen without contrast. This study was performed with techniques to keep radiation doses as low as reasonably achievable (ALARA). Individualized dose reduction techniques using automated exposure control or adjustment of mA and/or kV according to the patient's size were employed. CLINICAL HISTORY: BLURRED VISION COMPARISON: None FINDINGS: There is no mediastinal, hilar, or axillary lymphadenopathy. No pleural or pericardial effusion. There is a 5 mm right upper lobe subpleural nodule noted, best seen on image #25 series 2. No other nodules or infiltrates are identified. Limited evaluation of the upper abdomen demonstrates a nonobstructing right renal stone. There is gaseous distention visible within the colon, nonspecific. There is no acute osseous abnormality. IMPRESSION: No acute intrathoracic abnormality. Right upper lobe subpleural 5 mm nodule as described above, given the patient's chronologic age almost assuredly benign. No follow-up is deemed necessary at this time. Reviewed, Interpreted and Dictated by Jocelynn Fernandez MD Transcribed by Pura Porras Authenticated and [facility]
--- NOTE | 2024-11-05 15:21 | CT_ITS ---
FINAL REPORT TECHNIQUE: Thin section axial images were obtained from skull base to vertex without contrast. This study was performed with techniques to keep radiation doses as low as reasonably achievable, (ALARA). Individualized dose reduction techniques using automated exposure control or adjustment of mA and/or kV according to the patient's size were employed. CLINICAL HISTORY: BLURRED VISION COMPARISON: None FINDINGS: There is no mass effect or midline shift. There is no hydrocephalus. There is no intracranial hemorrhage. The posterior fossa is without acute abnormality. The basilar cisterns are preserved. There are air-fluid levels in the bilateral maxillary sinuses. No acute osseous abnormality is identified. IMPRESSION: No acute intracranial abnormality. Bilateral maxillary sinusitis. Reviewed, Interpreted and Dictated by Jocelynn Fernandez MD Transcribed by Ina Collins Authenticated and [facility]
== END 2024-11-05 23:59 | disposition home or self-care (01) ==
LOC: RAD 15:01
PROVIDERS: PCP Family Medicine; Visit Provider Internal Medicine
DX: R53.1 Weakness (principal); H53.8 Other visual disturbances; F39 Unspecified mood [affective] disorder
CPT/HCPCS: 70450

== ENCOUNTER 2024-12-24 20:27 | Observation (INO) | payer BC, SELFPAY ==
[2024-12-24 20:38] VITALS: BP 102/62; PULSE 71; RESP 18; TEMP 36.6; O2SAT 97; BMI 24.6
--- NOTE | 2024-12-24 20:42 | [facility].EDCP ---
Discharge Plan Disposition Patient Disposition: Admitted Condition: Serious Clinical Impressions Clinical Impression: Dyspnea, AMBERLY (acute kidney injury) Hypotension Qualifiers: Hypotension type: unspecified hypotension type Qualified Code(s): I95.9 - Hypotension, unspecified Discharge ED Provider: Octavio Parra HPI <ISRAEL Oconnell - Last Filed: 12/24/24 21:59> General Chief Complaint: Shortness of Breath/Dyspnea Stated Complaint: SOA,feels faint,denies chest pain Time Seen by Provider: 12/24/24 20:42 Mode of Arrival: Family Vehicle Source of Information: Patient Description of Symptoms (Recalled from ER Triage Doc. by RN): FOR THE LAST FEW DAYS, HAS BEEN HAVING SOA AND FEELING FAINT. 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 DENIES CP History of Present Illness HPI narrative: Patient presents for evaluation of dyspnea and lightheadedness. Patient has a past medical history of cardiomyopathy status post pacemaker placement. She does not routinely check her blood pressure at home. She reports that she recently got an update stating that her pacemaker needed adjustment. Patient reports that she is also supposed to get iron infusions but has not yet done so. She denies any chest pain fever chills hemoptysis hematochezia melena nausea vomiting diarrhea. Related Data Home Medications ?Medication ?Instructions ?Recorded ?Confirmed glycopyrrolate 2 mg tablet 2 mg PO QID 05/05/21 12/24/24 loratadine 10 mg tablet (Allergy 10 mg PO DAILY Allergy Symptoms 05/05/21 12/24/24 Relief (loratadine)) omeprazole 40 mg capsule,delayed 40 mg PO DAILY Acid Reflux 05/05/21 12/24/24 release buspirone 30 mg tablet 30 mg PO BID Anxiety 09/13/23 12/24/24 dextromethorphan IR 45 2 tab PO DAILY Mood 09/13/23 12/24/24 mg-bupropion ER 105 mg biphasic tablet (Auvelity) hydroxyzine HCl 50 mg tablet 100 mg PO TIDP PRN Anxiety 09/13/23 12/24/24 lorazepam 1 mg tablet 1 mg PO TIDP PRN Anxiety 09/13/23 12/24/24 trazodone 50 mg tablet 50 mg PO HSP PRN Insomnia 09/13/23 12/24/24 gabapentin 300 mg capsule 300 mg PO ONCE Pain 10/26/24 12/24/24 dextromethorphan IR 45 1 tab PO BID 12/24/24 12/24/24 mg-bupropion ER 105 mg biphasic tablet (Auvelity) Previous Rx's ?Medication ?Instructions ?Recorded ondansetron 4 mg disintegrating 4 mg PO Q8H PRN nausea and 09/11/24 tablet vomiting #20 tabs bisoprolol fumarate 5 mg tablet 2.5 mg (1/2 x 5 mg) PO DAILY #15 10/26/24 tabs spironolactone 25 mg tablet 12.5 mg (1/2 x 25 mg) PO DAILY 30 10/26/24 days #15 tabs Allergies Allergy/AdvReac Type Severity Reaction Status Date / Time Penicillins Allergy Intermediate Verified 10/20/24 09:49 metoprolol AdvReac Severe Verified 10/26/24 15:34 REPLACED BY [facility] <ISRAEL Oconnell - Last Filed: 12/24/24 21:59> REPLACED BY [facility] Disclaimer: The information contained in this section may have been updated after the patient was seen, as this information can be updated by other users. Medical History SVT (supraventricular tachycardia) History of pacemaker NYHA class 3 systolic congestive heart failure with reduced left ventricular function NYHA class 2 heart failure with reduced ejection fraction High pulmonary arterial pressure Hypotension Syncope Elevated serum creatinine Creatinine elevation Diabetes mellitus Kidney stone Family history of ischemic heart disease (IHD) Umbilical hernia Surgical History History of renal stent History of oral surgery History of breast biopsy Social History Smoking Status: Unknown if ever smoked alcohol intake: never substance use type: denies use current occupational status: employed Travel in the last 8 weeks: Inside the [place] household members: family housing: house current occupational exposures/hazards: No caffeine: Yes Have you lived/traveled outside [place] in past 30 days?: No Contact w/someone who lives/traveled outside [place] past 30 days?: No Exposure to someone with infectious disease in past 14 days?: No Do you have a fever (greater than 100.4 F or 38 C)?: No Have you tested positive for COVID-19: No Exposed to someone with COVID-19 in past 14 days?: No Do you have a sore throat?: No Do you have a cough?: No Do you have any weakness?: No Do you have any diarrhea?: No Are you experiencing any unusual bleeding?: No Do you have any muscle aches/pain?: No Do you have any abdominal pain?: No Are you experiencing loss of taste or smell?: No Other Medical History Have you received the Flu Vaccine for this season: No Have you received the Pneumonia Vaccine: No <ISRAEL Oconnell - Last Filed: 12/24/24 21:59> ROS Obtained: Yes Systems reviewed as appropriate & no additional complaints except as documented Physical Exam <ISRAEL Oconnell - Last Filed: 12/24/24 21:59> General General appearance: alert and in no apparent distress Respiratory Respiratory exam: Present normal lung sounds bilaterally Cardiovascular Cardiovascular exam: Present regular rate and Pacemaker w/paced rhythm Neurological Exam Neurological exam: Present alert and oriented X3 HEART Score <ISRAEL Oconnell - Last Filed: 12/24/24 21:59> HEART Score HEART Score assessment performed?: Yes History (anamnesis): Slightly suspicious ECG: Non-specific disturbance Age: <45 years Risk factors: 3 or more risk factors Troponin: </= normal limit HEART Score: 3 <Octavio Parra MD - Last Filed: 12/24/24 23:25> HEART Score HEART Score: 3 Critical Care <ISRAEL Oconnell - Last Filed: 12/24/24 21:59> Critical Care Time Critical Care Time: Yes Attestation: On 12/24/24, the high probability of a clinically significant, sudden or life threatening deterioration of the following system(s) required my full and direct attention, intervention and personal management. The time I documented below is in addition to time spent performing reported procedures but includes the following listed in this critical care notation. Total Time Total Critical Care Time: 35 Medical Decision Making <ISRAEL Oconnell - Last Filed: 12/24/24 21:59> Medical Records Medical records reviewed: Yes I reviewed the patient's medical records. Jaime Inquiry Pt receiving controlled substance: No Vital Signs Vital Signs: 12/24/24 20:38 12/24/24 21:00 12/24/24 21:30 Temperature 97.9 F Temperature Source Oral Pulse Rate 68 60 Pulse Rate [Right Radial] 71 Respiratory Rate 18 16 16 Blood Pressure 95/61 L 83/51 L Blood Pressure [Left Arm] 102/62 L Blood Pressure Mean 68 Blood Pressure Mean [Left Arm] 75 Blood Pressure Source [Left Arm] Automatic Cuff 02 Sat by Pulse Oximetry 97 97 97 Oxygen Delivery Method Room Air 12/24/24 22:07 Temperature 98.2 F Temperature Source Pulse Rate 67 Pulse Rate [Right Radial] Respiratory Rate 13 Blood Pressure 93/56 L Blood Pressure [Left Arm] Blood Pressure Mean Blood Pressure Mean [Left Arm] Blood Pressure Source [Left Arm] 02 Sat by Pulse Oximetry Oxygen Delivery Method Room Air Lab Data Lab results reviewed: Yes I reviewed the patient's lab results. Labs: Lab Results 12/24/24 20:58: VBG pH 7.35, VBG pCO2 39.5, VBG pO2 64.5 H, VBG HCO3 21.2 L, VBG Total CO2 22.4 L, VBG O2 Saturation 92.2 H, VBG Base Excess -4.4 L, VBG Lactic Acid 1.4 12/24/24 21:00: WBC 5.4, RBC 4.96, Hgb 13.5, Hct 40.9, MCV 82.5, MCH 27.2, MCHC 33.0, RDW 13.9, Plt Count 263, MPV 10.1, Neut % (Auto) 42.0, Lymph % (Auto) 45.1, Fallon % (Auto) 5.5, Eos % (Auto) 6.5, Baso % (Auto) 0.7, Neut # (Auto) 2.3, Lymph # (Auto) 2.4, Fallon # (Auto) 0.3, Eos # (Auto) 0.4, Baso # (Auto) 0.0, PT 10.8, INR 0.96, D-Dimer 0.49, Sodium 135 L, Potassium 3.7, Chloride 107, Carbon Dioxide 21 L, Anion Gap 10.7, BUN 12, Creatinine 1.20 H, Estimated Creat Clear 64, Estimated GFR 51 L, Est GFR ( Amer) 61, Glucose 82, Calcium 8.6, Magnesium 2.4 H, Total Bilirubin 0.5, AST 19, ALT 12, Alkaline Phosphatase 51, Troponin I < 0.01, NT-Pro-B Natriuret Pep 90.8, Total Protein 6.8, Albumin 3.9, Globulin 2.9, Albumin/Globulin Ratio 1.3, Procalcitonin < 0.030, Serum HCG, Qual Negative 12/24/24 21:00 12/24/24 21:00 Response Orders (Tests/Meds): ED MEDICATIONS Generic Name Dose Route Start Last Admin Trade Name Rory PRN Reason Stop Dose Admin Acetaminophen 650 mg 12/24/24 22:30 Acetaminophen 325mg Tab PO 01/23/25 22:29 Q4HP PRN Fever or Mild Pain (1-3) Hydrocodone Bitart/Acetaminophen 1 tab 12/24/24 22:30 Hydrocodone/Apap 5/325 Mg Tablet PO 01/23/25 22:29 Q4HP PRN Mild to Moderate Pain (1-6) Enoxaparin Sodium 40 mg 12/25/24 09:00 Enoxaparin 40mg/0.4ml Syringe SUBCUT 01/24/25 08:59 DAILY FIOR Lactated Ringer's 1,000 mls @ 50 mls/hr 12/24/24 22:30 Lactated Ringer's 1000 Ml Bag IV 01/23/25 22:29 .Q20H FIOR Ondansetron HCl 4 mg 12/24/24 22:30 Ondansetron 4mg/2ml Vial IV 01/23/25 22:29 Q8HP PRN Nausea Sodium Chloride 10 ml 12/24/24 22:30 Sodium Chloride 0.9% 10ml Flush Syringe IV 01/23/25 22:29 NEEDED PRN Maintain IV Site Discontinued Medications Generic Name Dose Route Start Last Admin Trade Name Frekiran PRN Reason Stop Dose Admin Sodium Chloride 1,000 mls @ 100 mls/hr 12/24/24 22:00 12/24/24 22:32 Sod Chlor 0.9% 1000ml Bag IV 01/23/25 21:59 100 mls/hr .Q10H FIOR Administration ORDERS Category Date Time Status Chest XR 2 view (NOT portable) [XR chest 2V] Stat Exams 12/24/24 20:57 Completed POCUS Point of Care (ER Only) Stat Exams 12/24/24 20:59 Completed BNP [NT Pro Brain Natriuretic Pep.] Stat Lab 12/24/24 21:00 Completed CBC w/Auto Diff [Complete Blood Count Auto Diff] Stat Lab 12/24/24 21:00 Completed CMP [Comprehensive Metabolic Panel] Stat Lab 12/24/24 21:00 Completed D-Dimer Stat Lab 12/24/24 21:00 Completed HCG Qualitative, Serum Stat Lab 12/24/24 21:00 Completed INR [Prothrombin Time INR] Stat Lab 12/24/24 21:00 Completed Magnesium Stat Lab 12/24/24 21:00 Completed Procalcitonin Stat Lab 12/24/24 21:00 Completed Trop I [Troponin I] Stat Lab 12/24/24 21:00 Completed Troponin I Q3H Lab 12/24/24 23:57 Ordered Troponin I Q3H Lab 12/25/24 02:57 Ordered VBG [Venous Blood Gas] Stat RT 12/24/24 20:58 Completed MDM Narrative Medical Decision Narrative: In summary patient is a 39-year-old female who presents to the emergency department for evaluation of dyspnea and lightheadedness. Patient is hypertensive on arrival with a blood pressure of 95/61 pulse 68 with a paced rhythm respiratory rate 16 satting at 97% on room air upon arrival, afebrile at 97.9. Physical exam is remarkable for clear breath sounds with no increased work of breathing adventitious sounds or accessory muscle use, patient has a paced rhythm on the monitor with no dependent edema noted.. Differential diagnosis includes CHF versus iatrogenic hypotension versus pacemaker problem etc. Initial workup will be conducted with hematologic labs twelve-lead EKG plain film chest x-ray. Initial interventions were considered including fluid bolus but given her cardiac history and a EF of 35 to 40% referred for now. Initial workup reviewed by me and her hematologic labs show a white count of 5.4 hemoglobin hematocrit 13.5 and 40.9 respectively with no shift on differential INR 0.96 VBG shows a pH of 7.35 and VBG lactic acid 1.4 and the remainder of her hematologic labs are nonactionable including normal troponin and BNP. Patient's blood pressures still remain soft last pressure was 83/51 and given her cardiovascular history and the history of CHF I have started fluid at a rate instead of a bolus. I contacted hospital medicine and spoke with them regarding patient's presentation and workup and she will be admitted for further evaluation and care. <Octavio Parra MD - Last Filed: 12/24/24 23:25> Vital Signs Vital Signs: 12/24/24 20:38 12/24/24 21:00 12/24/24 21:30 Temperature 97.9 F Temperature Source Oral Pulse Rate 68 60 Pulse Rate [Right Radial] 71 Respiratory Rate 18 16 16 Blood Pressure 95/61 L 83/51 L Blood Pressure [Left Arm] 102/62 L Blood Pressure Mean 68 Blood Pressure Mean [Left Arm] 75 Blood Pressure Source [Left Arm] Automatic Cuff 02 Sat by Pulse Oximetry 97 97 97 Oxygen Delivery Method Room Air 12/24/24 22:07 Temperature 98.2 F Temperature Source Pulse Rate 67 Pulse Rate [Right Radial] Respiratory Rate 13 Blood Pressure 93/56 L Blood Pressure [Left Arm] Blood Pressure Mean Blood Pressure Mean [Left Arm] Blood Pressure Source [Left Arm] 02 Sat by Pulse Oximetry Oxygen Delivery Method Room Air Lab Data Labs: Lab Results 12/24/24 20:58: VBG pH 7.35, VBG pCO2 39.5, VBG pO2 64.5 H, VBG HCO3 21.2 L, VBG Total CO2 22.4 L, VBG O2 Saturation 92.2 H, VBG Base Excess -4.4 L, VBG Lactic Acid 1.4 12/24/24 21:00: WBC 5.4, RBC 4.96, Hgb 13.5, Hct 40.9, MCV 82.5, MCH 27.2, MCHC 33.0, RDW 13.9, Plt Count 263, MPV 10.1, Neut % (Auto) 42.0, Lymph % (Auto) 45.1, Fallon % (Auto) 5.5, Eos % (Auto) 6.5, Baso % (Auto) 0.7, Neut # (Auto) 2.3, Lymph # (Auto) 2.4, Fallon # (Auto) 0.3, Eos # (Auto) 0.4, Baso # (Auto) 0.0, PT 10.8, INR 0.96, D-Dimer 0.49, Sodium 135 L, Potassium 3.7, Chloride 107, Carbon Dioxide 21 L, Anion Gap 10.7, BUN 12, Creatinine 1.20 H, Estimated Creat Clear 64, Estimated GFR 51 L, Est GFR ( Amer) 61, Glucose 82, Calcium 8.6, Magnesium 2.4 H, Total Bilirubin 0.5, AST 19, ALT 12, Alkaline Phosphatase 51, Troponin I < 0.01, NT-Pro-B Natriuret Pep 90.8, Total Protein 6.8, Albumin 3.9, Globulin 2.9, Albumin/Globulin Ratio 1.3, Procalcitonin < 0.030, Serum HCG, Qual Negative Response Orders (Tests/Meds): ED MEDICATIONS Generic Name Dose Route Start Last Admin Trade Name Rory PRN Reason Stop Dose Admin Acetaminophen 650 mg 12/24/24 22:30 Acetaminophen 325mg Tab PO 01/23/25 22:29 Q4HP PRN Fever or Mild Pain (1-3) Hydrocodone Bitart/Acetaminophen 1 tab 12/24/24 22:30 Hydrocodone/Apap 5/325 Mg Tablet PO 01/23/25 22:29 Q4HP PRN Mild to Moderate Pain (1-6) Enoxaparin Sodium 40 mg 12/25/24 09:00 Enoxaparin 40mg/0.4ml Syringe SUBCUT 01/24/25 08:59 DAILY FIOR Lactated Ringer's 1,000 mls @ 50 mls/hr 12/24/24 22:30 Lactated Ringer's 1000 Ml Bag IV 01/23/25 22:29 .Q20H FIOR Ondansetron HCl 4 mg 12/24/24 22:30 Ondansetron 4mg/2ml Vial IV 01/23/25 22:29 Q8HP PRN Nausea Sodium Chloride 10 ml 12/24/24 22:30 Sodium Chloride 0.9% 10ml Flush Syringe IV 01/23/25 22:29 NEEDED PRN Maintain IV Site Discontinued Medications Generic Name Dose Route Start Last Admin Trade Name Rory PRN Reason Stop Dose Admin Sodium Chloride 1,000 mls @ 100 mls/hr 12/24/24 22:00 12/24/24 22:32 Sod Chlor 0.9% 1000ml Bag IV 01/23/25 21:59 100 mls/hr .Q10H FIOR Administration ORDERS Category Date Time Status Chest XR 2 view (NOT portable) [XR chest 2V] Stat Exams 12/24/24 20:57 Completed POCUS Point of Care (ER Only) Stat Exams 12/24/24 20:59 Completed BNP [NT Pro Brain Natriuretic Pep.] Stat Lab 12/24/24 21:00 Completed CBC w/Auto Diff [Complete Blood Count Auto Diff] Stat Lab 12/24/24 21:00 Completed CMP [Comprehensive Metabolic Panel] Stat Lab 12/24/24 21:00 Completed D-Dimer Stat Lab 12/24/24 21:00 Completed HCG Qualitative, Serum Stat Lab 12/24/24 21:00 Completed INR [Prothrombin Time INR] Stat Lab 12/24/24 21:00 Completed Magnesium Stat Lab 12/24/24 21:00 Completed Procalcitonin Stat Lab 12/24/24 21:00 Completed Trop I [Troponin I] Stat Lab 12/24/24 21:00 Completed Troponin I Q3H Lab 12/24/24 23:57 Ordered Troponin I Q3H Lab 12/25/24 02:57 Ordered VBG [Venous Blood Gas] Stat RT 12/24/24 20:58 Completed ECG Data Tracing #1: Attestation: I reviewed this ECG and interpreted as documented below: (2048: AV paced rhythm with NC 155, QRS 120, QTc 453. Ventricular rate 74. Indeterminate axis. No obvious acute ischemic change) MDM Narrative Medical Decision Narrative: In summary patient is a 39-year-old female who presents to the emergency department for evaluation of dyspnea and lightheadedness. Patient is hypertensive on arrival with a blood pressure of 95/61 pulse 68 with a paced rhythm respiratory rate 16 satting at 97% on room air upon arrival, afebrile at 97.9. Physical exam is remarkable for clear breath sounds with no increased work of breathing adventitious sounds or accessory muscle use, patient has a paced rhythm on the monitor with no dependent edema noted.. Differential diagnosis includes CHF versus iatrogenic hypotension versus pacemaker problem etc. Initial workup will be conducted with hematologic labs twelve-lead EKG plain film chest x-ray. Initial interventions were considered including fluid bolus but given her cardiac history and a EF of 35 to 40% referred for now. Initial workup reviewed by me and her hematologic labs show a white count of 5.4 hemoglobin hematocrit 13.5 and 40.9 respectively with no shift on differential INR 0.96 VBG shows a pH of 7.35 and VBG lactic acid 1.4 and the remainder of her hematologic labs are nonactionable including normal troponin and BNP. Patient's blood pressures still remain soft last pressure was 83/51 and given her cardiovascular history and the history of CHF I have started fluid at a rate instead of a bolus. I contacted hospital medicine and spoke with them regarding patient's presentation and workup and she will be admitted for further evaluation and care. I was consulted by the ENZO, and we discussed the complexity of the problems being addressed. I approved the treatment and management plan for this patient's care in the Emergency Department, thus performing a substantive portion of the medical decision making. Octavio Parra MD
--- NOTE | 2024-12-24 20:49 | ECG_ITS ---
APPROVED REPORT Exam: Resting ECG HR:74 bpm ECG Measurements Heart Rate 74 AXES WA 155 P 44 QRSd 120 QRS 255 QT 425 T 31 QTc 453 Conclusion AV paced rhythm Electronically signed by : ANNETTE CEDILLO, 12/25/2024 19:49:26
--- NOTE | 2024-12-24 20:57 | XR_ITS ---
PROCEDURE INFORMATION: Exam: XR Chest Exam date and time: 12/24/2024 9:42 PM Age: 39 years old Clinical indication: Dyspnea TECHNIQUE: Imaging protocol: Radiologic exam of the chest. Views: 2 views. COMPARISON: CR XR CHEST PORTABLE 06/24/2024 1:49 PM FINDINGS: Tubes, catheters and devices: A 3 lead internal cardiac device implanted at the left chest with leads extending to the right heart. Lungs: Right upper lobe calcified nodule compatible with prior granulomatous process. Pleural spaces: Unremarkable. No pleural effusion. No pneumothorax. Heart/Mediastinum: Unremarkable. No cardiomegaly. Bones/joints: Unremarkable. IMPRESSION: No acute findings.
[2024-12-24 21:00] VITALS: BP 95/61; PULSE 68; RESP 16; O2SAT 97
[2024-12-24 21:11] LABS: Basophils % 0.7 % (0.1-2.0); Eosinophils # 0.4 K/mm3 (0.0-0.4); Eosinophils % 6.5 % (0.1-12.0); Hematocrit 40.9 % (37.0-47.0); Hemoglobin 13.5 g/dL (12.2-16.2); Lymphocytes # 2.4 K/mm3 (0.7-4.5); Lymphocytes % 45.1 % (10-50); Mean Corpuscular Hemoglobin 27.2 pg (27.0-31.2); Mean Corpuscular Volume 82.5 fl (81-99); Mean Platelet Volume 10.1 fl (7.4-10.4); Monocytes # 0.3 K/mm3 (0.1-1.0); Monocytes % 5.5 % (1.7-9.3); Neutrophils # 2.3 K/mm3 (1.8-7.8); Nucleated Red Blood Cells # 0 10^3/uL; Nucleated Red Blood Cells % 0 %; Platelet Count 263 K/mm3 (142-424); Red Blood Count 4.96 M/mm3 (4.20-5.40); Red Cell Distribution Width 13.9 % (11.5-17.5); Red Cell Distribution Width-SD 41.3 fL; White Blood Count 5.4 K/mm3 (4.8-10.8)
[2024-12-24 21:14] LABS: Lactate Venous 1.4 mmol/L (0.4-2.0); VBG Base Excess -4.4 mmol/L (-2.4-2.3); VBG HCO3 21.2 mmol/L (23-30); VBG Oxygen Saturation 92.2 % (50-70); VBG PCO2 39.5 mmol/L (35-51); VBG PH 7.35 mmol/L (7.31-7.41); VBG PO2 64.5 mmol/L (28-40); VBG Total CO2 22.4 mmol/L (23-27)
[2024-12-24 21:21] LABS: INR 0.96 (0.9-1.1); Prothrombin Time 10.8 seconds (10.1-12.5)
[2024-12-24 21:30] VITALS: BP 83/51; PULSE 60; RESP 16; O2SAT 97
[2024-12-24 21:35] LABS: Alanine Aminotransferase 12 U/L (12-78); Albumin Level 3.9 g/dl (3.5-5.0); Albumin/Globulin Ratio 1.3 (1.1-1.8); Alkaline Phosphatase 51 U/L (38-126); Anion Gap 10.7 mEq/L (5-15); Aspartate Amino Transferase 19 U/L (14-36); Bilirubin,Total 0.5 mg/dl (0.2-1.3); Blood Urea Nitrogen 12 mg/dl (7-17); Calcium 8.6 mg/dl (8.4-10.2); Carbon Dioxide 21 mmol/L (22.0-30.0); Chloride 107 mmol/L (98-107); Creatinine Clearance Estimated 64 mL/min (50-200); Estimated Glomerular Filt Rate 51 ml/min (>60); GFR (African American) 61 ML/MIN (>60); Globulin 2.9 g/dL (1.3-3.2); Glucose 82 mg/dl (74-100); Magnesium 2.4 mg/dl (1.6-2.3); Potassium 3.7 mmoL/L (3.5-5.1); Sodium 135 mmol/L (136-145); Total Protein,Serum 6.8 g/dl (6.3-8.2)
[2024-12-24 21:45] LABS: NT Pro Brain Natriuretic Pep. 90.8 pg/mL (0-125)
[2024-12-24 21:46] LABS: HCG Qualitative, Serum Negative (Negative); Troponin I < 0.01 ng/ml (0.00-0.034)
[2024-12-24 21:52] LABS: D-Dimer 0.49 ug/mL (0.0-0.5)
[2024-12-24 21:54] LABS: Procalcitonin < 0.030 ng/mL (0.0-2.0)
[2024-12-24 22:07] VITALS: BP 93/56; PULSE 67; RESP 13; TEMP 36.8; O2SAT 97
--- NOTE | 2024-12-24 22:26 | PC.NURSE ---
Patient arrived to unit at 2225 PM, Jo-Ann BATEMAN
[2024-12-24 22:27] VITALS: BP 93/59; PULSE 66; RESP 18; TEMP 36.4; O2SAT 99; BMI 23.3
[2024-12-24 22:30] VITALS: PULSE 72
[2024-12-24] MEDS: 0.9 % SODIUM CHLORIDE 1000ML 1,000 ML 100 ML IV (22:32)
--- NOTE | 2024-12-24 22:35 | P.HP_ITS ---
<Statement entered by Bam Oliver MD - 12/26/24 14:07> I personally examined the patient and agree with the plan of care as outlined by the KARATE INSTRUCTOR. History of Present Illness *Admission Date: 12/24/24 *Reason for visit:: Difficulty breathing and lightheadedness *History of present illness: This is a 39-year-old female who has a past medical history significant for SVT, pacemaker placement, systolic dysfunction congestive heart failure, syncope, diabetes, nephrolithiasis, cardiomyopathy, and umbilical hernia who presents with a chief plaint of lightheadedness and difficulty breathing. Due to patient's symptoms, she presented to the emergency room for evaluation. While in the emergency room, patient's systolic blood pressure was in the 80s. Moreover, patient had a slight injury to her kidney. Due to these findings, patient has been admitted for further management. During my evaluation of the patient, patient states she started having this lightheadedness and dyspnea today. She reports that she is also has some associated dizziness. When asked, patient states the lightheadedness and dizziness feels as if a curtain is coming down over her eyes and she is about to pass out. Recently, patient was called by her company who monitors her pacemaker and they informed her that her pacemaker needs adjustment. She states she is also pending an iron infusion. Patient is currently prescribed biosprolol and spironolactone daily. She reports being compliant with these medications. She is currently denying any blurred vision, double vision, headache, upper or lower extremity weakness, PND, orthopnea, swelling to lower extremities, nausea, vomiting, or diarrhea. Additional pertinent vitals obtained include a sodium 135, carbon dioxide 21, creatinine 1.20, GFR 51, and magnesium of 2.4. [facility] Disclaimer: The information contained in this section may have been updated after the patient was seen, as this information can be updated by other users. Medical History SVT (supraventricular tachycardia) History of pacemaker NYHA class 3 systolic congestive heart failure with reduced left ventricular function NYHA class 2 heart failure with reduced ejection fraction High pulmonary arterial pressure Hypotension Syncope Elevated serum creatinine Creatinine elevation Diabetes mellitus Kidney stone Family history of ischemic heart disease (IHD) Umbilical hernia Surgical History History of renal stent History of oral surgery History of breast biopsy Social History Smoking Status: Unknown if ever smoked alcohol intake: never substance use type: denies use current occupational status: employed Travel in the last 8 weeks: Inside the [place] household members: family housing: house current occupational exposures/hazards: No caffeine: Yes Have you lived/traveled outside [place] in past 30 days?: No Contact w/someone who lives/traveled outside US past 30 days?: No Exposure to someone with infectious disease in past 14 days?: No Do you have a fever (greater than 100.4 F or 38 C)?: No Have you tested positive for COVID-19: No Exposed to someone with COVID-19 in past 14 days?: No Do you have a sore throat?: No Do you have a cough?: No Do you have any weakness?: No Do you have any diarrhea?: No Are you experiencing any unusual bleeding?: No Do you have any muscle aches/pain?: No Do you have any abdominal pain?: No Are you experiencing loss of taste or smell?: No Other Medical History Have you received the Flu Vaccine for this season: No Have you received the Pneumonia Vaccine: No Review of Systems Review of Systems Review of systems:: pertinent systems reviewed and negative unless documented below Constitutional Constitutional: Reports system reviewed and no additional complaints, except as documented Eyes Eyes: Reports system reviewed and no additional complaints, except as documented ENT Ears, Nose, Mouth, and Throat: Reports system reviewed and no additional complaints, except as documented and Reports dizziness *Cardiovascular Cardiovascular: Reports dyspnea, Reports dyspnea on exertion and Reports lightheadedness *Respiratory Respiratory: Reports dyspnea and Reports dyspnea on exertion *Gastrointestinal Gastrointestinal: Reports system reviewed and no additional complaints, except as documented *Genitourinary Genitourinary: Reports system reviewed and no additional complaints, except as documented *Musculoskeletal Musculoskeletal: Reports system reviewed and no additional complaints, except as documented Integumentary/Breasts Skin/Breast: Reports system reviewed and no additional complaints, except as documented *Neurologic Neurologic: Reports dizziness Psychiatric Psychiatric: Reports system reviewed and no additional complaints, except as documented Endocrine Endocrine: Reports system reviewed and no additional complaints, except as documented Hematologic/Lymphatic Hematologic/Lymphatic: Reports system reviewed and no additional complaints, except as documented Allergic/Immunologic Allergic/Immunologic: Reports system reviewed and no additional complaints, except as documented Meds Home Medications and Allergies Home Medications ?Medication ?Instructions ?Recorded ?Confirmed ?Type glycopyrrolate 2 mg tablet 2 mg PO QID 05/05/21 12/24/24 History loratadine 10 mg tablet (Allergy 10 mg PO DAILY Allergy Symptoms 05/05/21 12/24/24 History Relief (loratadine)) omeprazole 40 mg capsule,delayed 40 mg PO DAILY Acid Reflux 05/05/21 12/24/24 History release buspirone 30 mg tablet 30 mg PO BID Anxiety 09/13/23 12/24/24 History dextromethorphan IR 45 2 tab PO DAILY Mood 09/13/23 12/24/24 History mg-bupropion ER 105 mg biphasic tablet (Auvelity) hydroxyzine HCl 50 mg tablet 100 mg PO TIDP PRN Anxiety 09/13/23 12/24/24 History lorazepam 1 mg tablet 1 mg PO TIDP PRN Anxiety 09/13/23 12/24/24 History trazodone 50 mg tablet 50 mg PO HSP PRN Insomnia 09/13/23 12/24/24 History tirzepatide (weight loss) 2.5 2.5 mg (0.5 mL) SQ WEEKLY 4 weeks 01/16/24 12/24/24 Rx mg/0.5 mL subcutaneous pen #2 mL injector (Zepbound) esketamine 84 mg (28 mg x 3) nasal 84 mg intranasal NEEDED PRN 05/26/24 12/24/24 History spray (Spravato) bipolar/ptsd ondansetron 4 mg disintegrating 4 mg PO Q8H PRN nausea and 09/11/24 12/24/24 Rx tablet vomiting #20 tabs bisoprolol fumarate 5 mg tablet 2.5 mg (1/2 x 5 mg) PO DAILY #15 10/26/24 12/24/24 Rx tabs gabapentin 300 mg capsule 300 mg PO ONCE Pain 10/26/24 12/24/24 History spironolactone 25 mg tablet 12.5 mg (1/2 x 25 mg) PO DAILY 30 10/26/24 12/24/24 Rx days #15 tabs New Prescriptions to Start Prescriptions: Allergies Allergy/AdvReac Type Severity Reaction Status Date / Time Penicillins Allergy Intermediate Verified 10/20/24 09:49 metoprolol AdvReac Severe Verified 10/26/24 15:34 Exam Data for Last 24 hours Vital signs and Labs for Last 24 Hours: Temp Pulse Resp BP Pulse Ox O2 Del Method 97.6 F 66 18 93/59 L 99 Room Air 12/24/24 22:27 12/24/24 22:27 12/24/24 22:27 12/24/24 22:27 12/24/24 22:27 12/24/24 22:27 Laboratory Results - last 24 hr 12/24/24 20:58: VBG pH 7.35, VBG pCO2 39.5, VBG pO2 64.5 H, VBG HCO3 21.2 L, VBG Total CO2 22.4 L, VBG O2 Saturation 92.2 H, VBG Base Excess -4.4 L, VBG Lactic Acid 1.4 12/24/24 21:00: WBC 5.4, RBC 4.96, Hgb 13.5, Hct 40.9, MCV 82.5, MCH 27.2, MCHC 33.0, RDW 13.9, Plt Count 263, MPV 10.1, Neut % (Auto) 42.0, Lymph % (Auto) 4 5.1, Alfalfa % (Auto) 5.5, Eos % (Auto) 6.5, Baso % (Auto) 0.7, Neut # (Auto) 2.3, Lymph # (Auto) 2.4, Alfalfa # (Auto) 0.3, Eos # (Auto) 0.4, Baso # (Auto) 0.0, PT 10.8, INR 0.96, D-Dimer 0.49, Sodium 135 L, Potassium 3.7, Chloride 107, Carbon Dioxide 21 L, Anion Gap 10.7, BUN 12, Creatinine 1.20 H, Estimated Creat Clear 64, Estimated GFR 51 L, Est GFR ( Amer) 61, Glucose 82, Calcium 8.6, Magnesium 2.4 H, Total Bilirubin 0.5, AST 19, ALT 12, Alkaline Phosphatase 51, Troponin I < 0.01, NT-Pro-B Natriuret Pep 90.8, Total Protein 6.8, Albumin 3.9, Globulin 2.9, Albumin/Globulin Ratio 1.3, Procalcitonin < 0.030, Serum HCG, Qual Negative I & O for Last 24 hours: Intake & Output 12/21/24 12/22/24 12/23/24 12/24/24 23:59 23:59 23:59 23:59 Weight 59.693 kg Constitutional Constitutional: no acute distress *Routine HEENT Exam Head: Present normocephalic and atraumatic Eye: Present EOMI, PERRL and normal accommodation ENT: Present mucous membranes moist *Routine Neck Exam Neck: Present supple, full ROM and trachea midline *Routine Respiratory Exam Respiratory: Present CTA bilaterally, able to speak in complete sentences and symmetric chest movement *Routine Cardiovascular Exam Cardiovascular: Present Normal S1 and Normal S2 Comments: Paced rhythm *Routine Abdominal Exam Abdominal: Present soft and normoactive bowel sounds *Routine Rectal Exam Rectal:: deferred *Routine Genitalia Exam Genitalia:: deferred *Routine Extremities Exam Extremities: Present full ROM, pulses intact and normal capillary refill Routine Back/Spine/Pelvis Exam Back/Spine: Present full ROM *Routine Skin Exam Skin: Present intact, dry and warm *Routine Neurological Exam Neurological: Present alert, oriented X3, CN II-XII intact, moving all extremities and normal speech Routine Psychiatric Exam Psychiatric: Present normal affect, normal thought process, cooperative, good insight and good judgment H&P: Result Impressions 39-year-old female with known cardiomyopathy who presents with a chief complaint of near syncope who was noted to be hypotensive in the emergency room. Due to patient's severe cardiomyopathy and reduced ejection fracture ER provider is reluctant to give her any IV hydration. Patient would benefit from gentle hydration over time. Assessment and Plan *Assessment and plan (1) Near syncope: Status: Acute Category: Medical Code(s): R55 - Syncope and collapse (2) AMBERLY (acute kidney injury): Status: Acute Category: Medical Code(s): N17.9 - Acute kidney failure, unspecified (3) Hypotension: Status: Acute Qualifiers: Hypotension type: unspecified hypotension type Qualified Code(s): I95.9 - Hypotension, unspecified Category: Medical Code(s): I95.9 - Hypotension, unspecified (4) Systolic CHF: Status: Acute Qualifiers: Heart failure chronicity: chronic Qualified Code(s): I50.22 - Chronic systolic (congestive) heart failure Category: Medical Code(s): I50.20 - Unspecified systolic (congestive) heart failure Plan Assessment: Near syncope -Will obtain 2D echo -Will consult cardiology -Will hold beta-flex and spironolactone -Obtain orthostatic blood pressure Acute kidney injury -Will give patient gentle IV hydration of LR at 50 mL is now -If patient's kidney numbers worsen, we will obtain urine studies and renal ultrasound -Will avoid nephrotoxic medications -Most likely prerenal in the setting of diuretics -Baseline creatinine appears to be within normal limits Hypotension -Will give a IV hydration as above -Will hold antihypertensives -Obtain cortisol level in the a.m. Systolic congestive heart failure -No acute decompensation noted -Last 2D echo was obtained in April 2024 and revealed an EF of 20% -Will repeat 2D echo Plan: Admit patient to the stepdown unit on telemetry -Will have patient evaluated by television camera operator due to concerns for pacemaker Daily weight Cardiac diet CBC/BMP daily Will continue to trend patient's troponin 40 mg Lovenox subcu daily for DVT prophylax 5 mg Collbran p.o. every 4 hours PMR pain 4 mg Zofran IV push every 8 hours pain nausea vomit Full code I will discussed this case with attending physician and a look for tomorrow
[2024-12-24] MEDS: LACTATED RINGERS 1000ML 1,000 ML 50 ML IV (23:39)
--- OUTSIDE RECORDS SUMMARY | 2024-12-24 23:40 | XMS_ITS | Continuity of Care Document ---
Author Organization [facility], SURGERY SCHEDULE Address [address] [place] [address] Care Team Providers Care Family Worker Name Role Phone ADITI SALOMON Primary Care Provider [phone] Assessment Encounter Date Assessment Date Assessment LastModified by Organization Details LastModified Time 11/17/2024 11/17/2024 DATE OF PROCEDURE: 11/18/2024 PROCEDURE PERFORMED: Trans-obturator urethral sling, Cystoscopy SURGEON: Angeli Cannno M.D. ANESTHESIA: General BLOOD LOSS: 20 mL PREOPERATIVE INDICATIONS: Patient with female stress urinary incontinence. We have had detailed discussion regarding treatment options and she had elected to proceed with sling placement. We have discussed with the risk of synthetic sling placement including failure to resolve stress incontinence, urinary retention, urinary urgency, dyspareunia, pelvic pain, erosion into the urethra, bladder, vagina mucosa, etc. OPERATIVE DETAILS: Patient was correctly identified in preoperative holding area. Informed consent was obtained after discussion of risks and benefits once again. She was taken to the procedure room, positioned in supine position. Anesthesia induced. She was repositioned to the lithotomy position. All pressure points padded. Proper timeout procedure completed. Preoperative antibiotics were given. The genitourinary area was shaved, prepped and draped in the normal sterile fashion. To initiate the procedure, a Rincon catheter was placed sterilely on operative field. The bladder neck was identified by palpation of the Rincon catheter balloon. The vaginal mucosa overlying the urethra and lateral to the urethra to the pubic bone was infiltrated with local injectable analgesia with epinephrine. Mid line incision was then made overlying the urethra approximately 2 cm in length. Vaginal mucosa flaps were raised bilaterally towards the pubic bone. Once this had been completed, the anatomic landmark overlying the obturator membrane was identified and small puncture incision was made and then helical trocars were passed from outside to in with care taken to not injure the bladder, urethra, vaginal mucosa. The suture attached to the sling was then hooked to the distal helical trocar and removed back through the groin incision. This was performed bilaterally. The sling was then loosely tensioned and positioned. The catheter was removed and cystoscopy performed. There was no cystoscopic evidence bladder injury, urethral injury, etc. The catheter was then replaced. The sling was then appropriately tensioned overlying the urethra that was noted to be lying flat and in good position. The protective plastic sheets and sutures were then removed with care taken to not cause sling migration. The wound was then irrigated. The vaginal mucosa was closed using running Vicryl suture. Vaginal packing with estrogen cream was then placed. The catheter was removed. The groin incisions were closed using Dermabond. DISPOSITION: Patient tolerated the procedure well. She is taken to recovery room in stable condition. She is discharged home with instructions for outpatient followup and strict limitations for sling placement. [email or web address] Not available 11/17/2024 14:21:03 Plan of Treatment Reminders Order Date Submit Date Provider Last Modified By Organization Details Last Modified Time Details Appointments RECHECK 2024 04:15P M ANGELI CANNON MD Not available Not available Not available Lab None recorded. Referral None recorded. Procedures None recorded. Surgeries None recorded. Imaging None recorded. Medication Orders hydrocodo ne 7.5 mg-acetam inophen 325 mg tablet 2024 025 JET [facility], [address] [place], [address], 11/17/2024 14:25:05 Patient TargetsNo targets recorded. Patient InstructionsNo instructions recorded. Reason for Referral None Reported. Problems No Known Problems Procedures Surgical History Date Name Laterality Status Provider Name and Address Organization Details Recorded Time Post Void Residual; Ultrasound completed kOsana Porras [facility] 11/23/2024 16:43:00 Imaging Results None recorded. Procedure Notes None recorded. Medical Equipment None Reported. Allergies Allergen ID Allergen Name Allergen Category Reaction Reaction Severity Criticality Documentation Date Start Date Code Code System Note Provider Name and Address Organization Details Recorded Time [id number] Product containin g penicilli n (product) medicatio n Not available Not available Not available 02/18/2018 [id number] SNOMED Petra Garzon [facility] 8 15:24:44 Medications Name Sig Start Date Stop Date Status Note LastModified by Organization Details LastModified Time hydrocodone 7.5 mg-acetaminop hen 325 mg tablet Take 1 tablet every 6 hours by oral route as needed. 2024 active Not Available Not Available Not Avai lable Cipro 500 mg tablet Take 1 tablet every 12 hours by oral route. 10/29 completed Not Available Not Available Not Available Percocet 5 mg-325 mg tablet Take 1 tablet every 6 hours by oral route. 10/29 completed Not Available Not Available Not Available loratadine active Not Available Not Av ailable Not Available glycopyrrolat e active Not Available Not Available Not Available Effexor 10/29 completed Not Available Not Available Not Available omeprazole active Not Available Not Av ailable Not Available hydroxyzine HCl active Not Available Not Available Not Available lorazepam active Not Available Not Kelley ilable Not Available spironolacton e active Not Available Not Available Not Available trazodone active Not Available Not Kelley ilable Not Available Lamictal active Not Available Not Avai lable Not Available gabapentin active Not Available Not Av ailable Not Available Zepbound active Not Available Not Avai lable Not Available Vitals None Recorded Social History Question Answer Notes LastModified by Organizat ion Details LastModified Time Tobacco Smoking Status Former Smoker Blade Muñoz [facility] 10/29/2024 17:00:54 What Is Your Level Of Alcohol Consumption? Occasional Information not available 02/18/2018 Marital Status [email or web address] Informatio n not available 02/18/2018 What Was The Date Of Your Most Recent Tobacco Screening? 12/17/2024 [email or web address] Information not available 12/17/2024 Has Tobacco Cessation Counseling Been Provided? Yes [email or web address] Information not available 02/18/2018 On What Date Was Tobacco Cessation Counseling Provided? 02/26/2018 [email or web address] Information not available 02/26/2018 Sex: Unknown Functional Status None recorded. Mental Status None recorded. Family History Relationship Description Onset Age of this Age Resolved Age Notes LastModified by Organization Details LastModified Time Mother Family history of malignant neoplasm [email or web address] Not available 02/18 15:26:02 Maternal Grandmother Family history of malignant neoplasm Not available 02/18 15:26:10 Unspecified Relation Diabetes mellitus [email or web address] Not available 2024 16:59:53 Unspecified Relation Kidney disease [email or web address] Not available 2024 17:00:06 Medical History Condition Response Allergies/Hayfever Y Anxiety Disorder Y Pacemaker Y Arthritis Y Kidney Stones Y Heart Conditions Y Sleep Apnea Y Heart Arrhythmia Y Acid Reflux (GERD) Y Depression Y Gynecological HistoryNo gynecological history recorded. Obstetrics History GPAL:G 0 P 0 0 0 0 Past Encounters Encounter ID Performer Location Encounter Start Date Encounter Closed Date Diagnosis/Indication Diagnosis SNOMED-CT Code Diagnosis ICD10 Code Diagnosis Note [id number] ANGELI CANNON MD [facility] [address] [place] [address],[address] [place] [address] 10/29/2024 15:58:18 10/29/2024 19:05:50 Female stress incontinence 88850009 N39.3 Recurrent urinary tract infection [id number] N39.0 [id number] ANGELI CANNON MD SURGERY SCHEDULE [address] [place] [address] 11/17/2024 11:55:00 11/17/2024 11:56:20 Postoperative pain 292305382 G89.18 Health Concerns Section Related Observation LastModified by Organization Detai ls LastModified Time None Recorded Concern Status LastModified by Organization Details LastModified Time None Recorded Payers Encounter Date Sequence Insurance Name Policy Number Policy Alcantara Covered Member ID Alcantara Member ID Guarantor Name 11/17/2024 1 [place] [id number] Alysa Mancini [id number] Alysa Mancini OBGyn Episode No OBEpisode recorded.
--- OUTSIDE RECORDS SUMMARY | 2024-12-24 23:40 | XMS_ITS | Data Portability ---
Author Organization LESIA GILBERTO [facility] [place] [facility] Address [address] [facility] [facility] [address] [place] [address] Care Team Providers Care Interventional Sale Consultant Name Role Phone ADITI SALOMON Primary Care Provider [phone] Assessment Encounter Date Assessment Date Assessment LastModified by Organization Details LastModified Time 10/29/2024 10/29/2024 We had detailed discussion regarding diagnosis of female stress urinary incontinence and options of management. We discussed options of urodynamics for further evaluation. She has no symptoms of urgency or urge incontinence and symptoms seem to be complete female stress urinary incontinence. We discussed options of treatment including mid urethral sling versus bulking agent such as Bulkamid. She is interested in sling placement. We discussed the diagnosis of stress urinary incontinence and potential treatment options including strengthening the pelvic floor muscles Kegel exercises, endoscopic procedures with suburethral injection, sling placement. We further discussed sling placement the patient was made aware that this is synthetic mesh with potential risks of bleeding, infection, irritative voiding symptoms of frequency, urgency, potential urinary retention, failure to resolve stress urinary incontinence, possible mesh erosion into the vagina, urethra, bladder, etc. [email or web address] Not available 11/08/2024 18:42:47 11/17/2024 11/17/2024 DATE OF PROCEDURE: 11/18/2024 PROCEDURE PERFORMED: Trans-obturator urethral sling, Cystoscopy SURGEON: Angeli Coles M.D. ANESTHESIA: General BLOOD LOSS: 20 mL [...] followup and strict limitations for sling placement. [email or web address] Not available 11/17/2024 14:21:03 11/23/2024 11/23/2024 Continue to monitor urinary hesitancy. Follow-up in 1 week w/ [facility]. We discussed that she is not emptying her bladder completely following the placement of TOT sling. We discussed options for slight urethral dilation to potentially slightly loosen the sling but patient would like to continue to monitor symptoms for now as swelling may be contributing to the incomplete emptying. Follow-up with [facility]. Not available 12/06/2024 14:19:39 Plan of Treatment Reminders Order Date Submit Date Provider Last Modified By Organization Details Last Modified Time Details Appointments RECHECK 2024 04:15P Jo-Ann COLES MD Not available Not available Not available Lab urinalysi s panel, auto 2024 025 4 [facility], [address], [address], [place], [address], 11/25/2024 13:17:40 urinalysi s panel, auto 2024 025 [email or web address] 4 [facility], [address] [place] [address] [address], [place], [address], 11/08/2024 18:42:55 urinalysi s, dipstick, auto 2017 018 [email or web address] [facility], [address], [address], [place], [address], 02/26/2018 14:24:28 Referral None recorded. Procedures None recorded. Surgeries sling operation for stress incontine nce (SURG) 2024 025 [email or web address], [address] [facility], [address], [place], [address], 12/15/2024 11:47:38 Imaging None recorded. Medication Orders hydrocodo ne 7.5 mg-acetam inophen 325 mg tablet 2024 025 [facility], [address] [place], [address], 11/17/2024 14:25:05 Patient TargetsNo targets recorded. Patient Instructions Encounter Date Encounter Id Patient Instructions Last Modified By Organization Details Last Modified Time 02/26/2018 [id number] kidney stone: care instructions [email or web address] Not available 02/26/2018 14:24:28 learning about diet for kidney stone prevention surya Not available 02/26/2018 14:24:28 10/29/2024 [id number] learning about healthy weight [email or web address] Not available 11/08/2024 18:42:55 Reason for Referral None Reported. Results Created Date Observation Date Name Description Value Unit Range Abnormal Flag Note LastModifiedBy Organization Detail LastModifiedTime 02/27/20 18 02/26/2018 urina lysis , dipst ick, auto Unknown Analyte Red Not Available [facility] [address], [place], [address], 02/26/2018 14:20:57 02/27/20 18 02/26/2018 urina lysis , dipst ick, auto Unknown Analyte Bloody Not Available [facility] [address], [address], 02/26/2018 14:20:57 02/27/20 18 02/26/2018 urina lysis , dipst ick, auto Unknown Analyte 1.010 Not Available [facility] [address], [address], 02/26/2018 14:20:57 02/27/20 18 02/26/2018 urina lysis , dipst ick, auto Unknown Analyte 6.5 Not Available [facility] [address], [address], 02/26/2018 14:20:57 02/27/20 18 02/26/2018 urina lysis , dipst ick, auto Unknown Analyte 500 Yuli/ul (++) Not Available [facility] [address], [place], [address], 02/26/2018 14:20:57 02/27/20 18 02/26/2018 urina lysis , dipst ick, auto Unknown Analyte Negati ve Not Available [facility] [address], [place], [address], 02/26/2018 14:20:57 02/27/20 18 02/26/2018 urina lysis , dipst ick, auto Unknown Analyte 500 mg/dl (+++) Not Available [facility] [address], [place], [address], 02/26/2018 14:20:57 02/27/20 18 02/26/2018 urina lysis , dipst ick, auto Unknown Analyte Normal Not Available [facility] [address], [place], [address], 02/26/2018 14:20:57 02/27/20 18 02/26/2018 urina lysis , dipst ick, auto Unknown Analyte Negati ve Not Available [facility] [address], [place], [address], 02/26/2018 14:20:57 02/27/20 18 02/26/2018 urina lysis , dipst ick, auto Unknown Analyte Normal Not Available [facility] [address], [place], [address], 02/26/2018 14:20:57 02/27/20 18 02/26/2018 urina lysis , dipst ick, auto Unknown Analyte 1 mg/dl (+) Not Available [facility] [address], [place], [address], 02/26/2018 14:20:57 02/27/20 18 02/26/2018 urina lysis , dipst ick, auto Unknown Analyte 250 Rocael/ul Not Available [facility] [address] [facility] [address], [place], [address], 02/26/2018 14:20:57 02/27/20 18 02/26/2018 urina lysis , dipst ick, auto Unknown Analyte Clean Catch Not Available [facility] [address], [place], [address], 02/26/2018 14:20:57 02/27/20 18 02/26/2018 urina lysis , dipst ick, auto Unknown Analyte Automa anju Not Available [facility] [address], [place], [address], 02/26/2018 14:20:57 02/19/20 18 02/18/2018 urina lysis , dipst ick, auto Unknown Analyte Straw Not Available [facility] [address] [place] [address] [address], [place], [address], 02/18/2018 15:27:53 02/19/20 18 02/18/2018 urina lysis , dipst ick, auto Unknown Analyte Clear Not Available [facility] [address] [facility] [address], [place], [address], 02/18/2018 15:27:53 02/19/20 18 02/18/2018 urina lysis , dipst ick, auto Unknown Analyte 1.010 Not Available [facility] [address], [place], [address], 02/18/2018 15:27:53 02/19/20 18 02/18/2018 urina lysis , dipst ick, auto Unknown Analyte 8.0 Not Available [facility] [address] [facility] [address], [place], [address], 02/18/2018 15:27:53 02/19/20 18 02/18/2018 urina lysis , dipst ick, auto Unknown Analyte 25 Yuli/ul Trace Not Available [facility] [address], [place], [address], 02/18/2018 15:27:53 02/19/20 18 02/18/2018 urina lysis , dipst ick, auto Unknown Analyte Negati ve Not Available [facility] [address], [place], [address], 02/18/2018 15:27:53 02/19/20 18 02/18/2018 urina lysis , dipst ick, auto Unknown Analyte Negtiv e Not Available [facility] [address], [place], [address], 02/18/2018 15:27:53 02/19/20 18 02/18/2018 urina lysis , dipst ick, auto Unknown Analyte Normal Not Available [facility] [address], [place], [address], 02/18/2018 15:27:53 02/19/20 18 02/18/2018 urina lysis , dipst ick, auto Unknown Analyte Negati ve Not Available [facility] [address] [facility] [address], [place], [address], 02/18/2018 15:27:53 02/19/20 18 02/18/2018 urina lysis , dipst ick, auto Unknown Analyte 1 mg/dl Not Available [facility] [address] [place] [address] [address], [place], [address], 02/18/2018 15:27:53 02/19/20 18 02/18/2018 urina lysis , dipst ick, auto Unknown Analyte Negati ve Not Available [facility] [address] [facility] [address], [place], [address], 02/18/2018 15:27:53 02/19/20 18 02/18/2018 urina lysis , dipst ick, auto Unknown Analyte Negati ve Not Available [facility] [address], [place], [address], 02/18/2018 15:27:53 02/19/20 18 02/18/2018 urina lysis , dipst ick, auto Unknown Analyte Clean Catch Not Available [facility] [address], [place], [address], 02/18/2018 15:27:53 02/19/20 18 02/18/2018 urina lysis , dipst ick, auto Unknown Analyte Automa anju Not Available [facility] [address] [place] [address] [address], [place], [address], 02/18/2018 15:27:53 02/19/20 18 02/18/2018 beta- HCG, quant itati ve, serum or plasm a beta HCG, <5.0 mIU/m L 0.0-5. 0 normal EXPEC ANJU HCG LEVEL S WEEKS OF GESTA TION HCG LEVEL (mIU/ mL) 3 5.8 - 71.2 4 9.5 - 750 5 217 - 7138 6 158 - 31,79 5 7 3697 - 163,5 63 8 32,06 5 - 149,5 71 9 63,80 3 - 151,4 10 10 46,50 9 - 186,9 77 12 27,83 2 - 210,6 12 14 13,95 0 - 62,53 0 15 12,03 9 - 70,97 1 16 9040 - 56,45 1 17 8175 - 55,86 8 18 8099 - 58,17 6 Not Available [facility] [address] [facility], [place], [address], 02/18/2018 17:54:20 10/29/19 25 10/29/2024 urina lysis panel , auto Unknown Analyte Clean Catch Not Available [facility] [address], [place], [address], 10/29/2024 17:03:38 10/29/19 25 10/29/2024 urina lysis panel , auto Unknown Analyte Straw Not Available [facility] [address], [place], [address], 10/29/2024 17:03:38 10/29/19 25 10/29/2024 urina lysis panel , auto Unknown Analyte Slight ly Hazy Not Available [facility] [address], [place], [address], 10/29/2024 17:03:38 10/29/19 25 10/29/2024 urina lysis panel , auto Unknown Analyte 1.025 Not Available [facility] [address], [place], [address], 10/29/2024 17:03:38 10/29/19 25 10/29/2024 urina lysis panel , auto Unknown Analyte 1.003- 1.035 Not Available [facility] [address], [place], [address], 10/29/2024 17:03:38 10/29/19 25 10/29/2024 urina lysis panel , auto Unknown Analyte 5.0 Not Available [facility] With [address], [place], [address], 10/29/2024 17:03:38 10/29/19 25 10/29/2024 urina lysis panel , auto Unknown Analyte 5.0-8. 0 Not Available [facility] With [address], [place], [address], 10/29/2024 17:03:38 10/29/19 25 10/29/2024 urina lysis panel , auto Unknown Analyte Negati ve Not Available [facility] [address], [place], [address], 10/29/2024 17:03:38 10/29/19 25 10/29/2024 urina lysis panel , auto Unknown Analyte Negati ve Not Available [facility] [address], [place], [address], 10/29/2024 17:03:38 10/29/19 25 10/29/2024 urina lysis panel , auto Unknown Analyte Negati ve Not Available [facility] [address], [place], [address], 10/29/2024 17:03:38 10/29/19 25 10/29/2024 urina lysis panel , auto Unknown Analyte Negati ve Not Available [facility] With [address], [place], [address], 10/29/2024 17:03:38 10/29/19 25 10/29/2024 urina lysis panel , auto Unknown Analyte 30 mg/dl (+) Not Available [facility] [address], [place], [address], 10/29/2024 17:03:38 10/29/19 25 10/29/2024 urina lysis panel , auto Unknown Analyte Negati ve Not Available [facility] [address] [place], [address], 10/29/2024 17:03:38 10/29/19 25 10/29/2024 urina lysis panel , auto Unknown Analyte Normal Not Available [facility] With [address], [place], [address], 10/29/2024 17:03:38 10/29/19 25 10/29/2024 urina lysis panel , auto Unknown Analyte Normal Not Available [facility] With [address] [place], [address], 10/29/2024 17:03:38 10/29/19 25 10/29/2024 urina lysis panel , auto Unknown Analyte Negati ve Not Available [facility] With [address] [place], [address], 10/29/2024 17:03:38 10/29/19 25 10/29/2024 urina lysis panel , auto Unknown Analyte Negati ve Not Available [facility] [address] [place], [address], 10/29/2024 17:03:38 10/29/19 25 10/29/2024 urina lysis panel , auto Unknown Analyte 1 mg/dl Not Available [facility] [address], [place], [address], 10/29/2024 17:03:38 10/29/19 25 10/29/2024 urina lysis panel , auto Unknown Analyte Normal 1 mg/dl Not Available [facility] With [address], [place], [address], 10/29/2024 17:03:38 10/29/19 25 10/29/2024 urina lysis panel , auto Unknown Analyte 1 mg/dl (+) Not Available [facility] [address] [place], [address], 10/29/2024 17:03:38 10/29/19 25 10/29/2024 urina lysis panel , auto Unknown Analyte Negati ve Not Available [facility] With [address] [place], [place], [address], 10/29/2024 17:03:38 10/29/19 25 10/29/2024 urina lysis panel , auto Unknown Analyte Negati ve Not Available [facility] [address], [place], [address], 10/29/2024 17:03:38 10/29/19 25 10/29/2024 urina lysis panel , auto Unknown Analyte Negati ve Not Available [facility] With [address], [place], [address], 10/29/2024 17:03:38 11/18/19 25 11/17/2024 urina lysis panel , auto Unknown Analyte Clean Catch Not Available [facility] [address] [place] [address], [place], [address], 11/17/2024 12:39:07 11/18/19 25 11/17/2024 urina lysis panel , auto Unknown Analyte Yellow Not Available [facility] [address] [place] [address], [address], 11/17/2024 12:39:07 11/18/19 25 11/17/2024 urina lysis panel , auto Unknown Analyte Clear Not Available [facility] [address] [place] [address], [address], 11/17/2024 12:39:07 11/18/19 25 11/17/2024 urina lysis panel , auto Unknown Analyte 1.[address] [facility] [address] [place] [address], [address], 11/17/2024 12:39:07 11/18/19 25 11/17/2024 urina lysis panel , auto Unknown Analyte 1.003 - 1.030 Not Available [facility] [address] [place] [address], [address], 11/17/2024 12:39:07 11/18/19 25 11/17/2024 urina lysis panel , auto Unknown Analyte 5.[address] [facility] [address] [place] [address], [address], 11/17/2024 12:39:07 11/18/19 25 11/17/2024 urina lysis panel , auto Unknown Analyte 5.0 - 8.0 Not Available [facility] [address] [place] [address], [address], 11/17/2024 12:39:07 11/18/19 25 11/17/2024 urina lysis panel , auto Unknown Analyte 25 Yuli/uL Not Available [facility] [address] [place] [address], [place], [address], 11/17/2024 12:39:07 11/18/19 25 11/17/2024 urina lysis panel , auto Unknown Analyte Negati ve Not Available [facility] [address] [place] [address], [address], 11/17/2024 12:39:07 11/18/19 25 11/17/2024 urina lysis panel , auto Unknown Analyte Negati ve Not Available [facility] [address] [place] [address], [address], 11/17/2024 12:39:07 11/18/19 25 11/17/2024 urina lysis panel , auto Unknown Analyte Negati ve Not Available [facility] [address] [place] [address], [address], 11/17/2024 12:39:07 11/18/19 25 11/17/2024 urina lysis panel , auto Unknown Analyte 30 mg/dL Not Available [facility] [address] [place] [address], [place], [address], 11/17/2024 12:39:07 11/18/19 25 11/17/2024 urina lysis panel , auto Unknown Analyte Negati ve Not Available [facility] [address] [place] [address], [address], 11/17/2024 12:39:07 11/18/19 25 11/17/2024 urina lysis panel , auto Unknown Analyte >1000 mg/dL Not Available [facility] [address] [place] [address], [address], 11/17/2024 12:39:07 11/18/19 25 11/17/2024 urina lysis panel , auto Unknown Analyte Normal Not Available [facility] [address], [place], [address], 11/17/2024 12:39:07 11/18/19 25 11/17/2024 urina lysis panel , auto Unknown Analyte Negati ve Not Available [facility] [address] [place] [address], [address], 11/17/2024 12:39:07 11/18/19 25 11/17/2024 urina lysis panel , auto Unknown Analyte Negati ve Not Available [facility] [address] [place] [address], [address], 11/17/2024 12:39:07 11/18/19 25 11/17/2024 urina lysis panel , auto Unknown Analyte 1 mg/dL Not Available [facility] [address] [place] [address], [address], 11/17/2024 12:39:07 11/18/19 25 11/17/2024 urina lysis panel , auto Unknown Analyte Normal Not Available [facility] [address] [place] [address], [address], 11/17/2024 12:39:07 11/18/19 25 11/17/2024 urina lysis panel , auto Unknown Analyte 1 mg/dL Not Available [facility] [address] [place] [address], [address], 11/17/2024 12:39:07 11/18/19 25 11/17/2024 urina lysis panel , auto Unknown Analyte Negati ve Not Available [facility] [address] [place] [address], [address], 11/17/2024 12:39:07 11/18/19 25 11/17/2024 urina lysis panel , auto Unknown Analyte Trace Not Available [facility] [address] [place] [address], [place], [address], 11/17/2024 12:39:07 11/18/19 25 11/17/2024 urina lysis panel , auto Unknown Analyte Negati ve Not Available [facility] [address] [facility] [address], [place], [address], 11/17/2024 12:39:07 11/24/19 25 11/23/2024 urina lysis panel , auto Unknown Analyte Clean Catch Not Available [facility] [address], [place], [address], 11/23/2024 16:32:23 11/24/19 25 11/23/2024 urina lysis panel , auto Unknown Analyte Yellow Not Available [facility] [address], [place], [address], 11/23/2024 16:32:23 11/24/19 25 11/23/2024 urina lysis panel , auto Unknown Analyte Slight ly Cloudy Not Available [facility] [address], [place], [address], 11/23/2024 16:32:23 11/24/19 25 11/23/2024 urina lysis panel , auto Unknown Analyte 1.015 Not Available [facility] [address], [place], [address], 11/23/2024 16:32:23 11/24/19 25 11/23/2024 urina lysis panel , auto Unknown Analyte 1.003 - 1.030 Not Available [facility] [address], [place], [address], 11/23/2024 16:32:23 11/24/19 25 11/23/2024 urina lysis panel , auto Unknown Analyte 5.0 Not Available [facility] [address], [place], [address], 11/23/2024 16:32:23 11/24/19 25 11/23/2024 urina lysis panel , auto Unknown Analyte 5.0 - 8.0 Not Available [facility] [address], [place], [address], 11/23/2024 16:32:23 11/24/19 25 11/23/2024 urina lysis panel , auto Unknown Analyte Negati ve Not Available [facility] [address], [place], [address], 11/23/2024 16:32:23 11/24/19 25 11/23/2024 urina lysis panel , auto Unknown Analyte Negati ve Not Available [facility] [address], [place], [address], 11/23/2024 16:32:23 11/24/19 25 11/23/2024 urina lysis panel , auto Unknown Analyte Negati ve Not Available [facility] [facility] [address], [place], [address], 11/23/2024 16:32:23 11/24/19 25 11/23/2024 urina lysis panel , auto Unknown Analyte Negati ve Not Available [facility] [address], [place], [address], 11/23/2024 16:32:23 11/24/19 25 11/23/2024 urina lysis panel , auto Unknown Analyte Negati ve Not Available [facility] [address], [place], [address], 11/23/2024 16:32:23 11/24/19 25 11/23/2024 urina lysis panel , auto Unknown Analyte Negati ve Not Available [facility] [address], [place], [address], 11/23/2024 16:32:23 11/24/19 25 11/23/2024 urina lysis panel , auto Unknown Analyte >1000 mg/dL Not Available [facility] [address], [place], [address], 11/23/2024 16:32:23 11/24/19 25 11/23/2024 urina lysis panel , auto Unknown Analyte Normal Not Available [facility] [address], [place], [address], 11/23/2024 16:32:23 11/24/19 25 11/23/2024 urina lysis panel , auto Unknown Analyte Negati ve Not Available [facility] [address], [place], [address], 11/23/2024 16:32:23 11/24/19 25 11/23/2024 urina lysis panel , auto Unknown Analyte Negati ve Not Available [facility] [address], [place], [address], 11/23/2024 16:32:23 11/24/19 25 11/23/2024 urina lysis panel , auto Unknown Analyte Normal Not Available [facility] [address], [place], [address], 11/23/2024 16:32:23 11/24/19 25 11/23/2024 urina lysis panel , auto Unknown Analyte Normal Not Available [facility] [address], [place], [address], 11/23/2024 16:32:23 11/24/19 25 11/23/2024 urina lysis panel , auto Unknown Analyte Negati ve Not Available [facility] [address], [place], [address], 11/23/2024 16:32:23 11/24/19 25 11/23/2024 urina lysis panel , auto Unknown Analyte Negati ve Not Available [facility] [address], [place], [address], 11/23/2024 16:32:23 11/24/19 25 11/23/2024 urina lysis panel , auto Unknown Analyte 50 Rocael/uL Not Available [facility] [address], [place], [address], 11/23/2024 16:32:23 11/24/19 25 11/23/2024 urina lysis panel , auto Unknown Analyte Negati ve Not Available [facility] [address], [place], [address], 11/23/2024 16:32:23 12/18/19 25 12/17/2024 urina lysis panel , auto Unknown Analyte Clean Catch Not Available [facility] [address] [place], [place], [address], 12/17/2024 16:54:04 12/18/19 25 12/17/2024 urina lysis panel , auto Unknown Analyte Yellow Not Available [facility] [address] [place], [address], 12/17/2024 16:54:04 12/18/19 25 12/17/2024 urina lysis panel , auto Unknown Analyte Clear Not Available [facility] [address] [place], [address], 12/17/2024 16:54:04 12/18/19 25 12/17/2024 urina lysis panel , auto Unknown Analyte 1.025 Not Available [facility] [address] [place], [address], 12/17/2024 16:54:04 12/18/19 25 12/17/2024 urina lysis panel , auto Unknown Analyte 1.003 - 1.030 Not Available [facility] [address] [place], [address], 12/17/2024 16:54:04 12/18/19 25 12/17/2024 urina lysis panel , auto Unknown Analyte 5.0 Not Available [facility] [address] [place], [address], 12/17/2024 16:54:04 12/18/19 25 12/17/2024 urina lysis panel , auto Unknown Analyte 5.0 - 8.0 Not Available [facility] With [address] [place], [address], 12/17/2024 16:54:04 12/18/19 25 12/17/2024 urina lysis panel , auto Unknown Analyte 75 Yuli/uL Not Available [facility] [address] [place], [place], [address], 12/17/2024 16:54:04 12/18/19 25 12/17/2024 urina lysis panel , auto Unknown Analyte Negati ve Not Available [facility] [address] [place], [place], [address], 12/17/2024 16:54:04 12/18/19 25 12/17/2024 urina lysis panel , auto Unknown Analyte Negati ve Not Available [facility] [address] [place], [place], [address], 12/17/2024 16:54:04 12/18/19 25 12/17/2024 urina lysis panel , auto Unknown Analyte Negati ve Not Available [facility] With [address] [place], [place], [address], 12/17/2024 16:54:04 12/18/19 25 12/17/2024 urina lysis panel , auto Unknown Analyte Negati ve Not Available [facility] With [address] [place], [place], [address], 12/17/2024 16:54:04 12/18/19 25 12/17/2024 urina lysis panel , auto Unknown Analyte Negati ve Not Available [facility] [address] [place], [address], 12/17/2024 16:54:04 12/18/19 25 12/17/2024 urina lysis panel , auto Unknown Analyte >1000 mg/dL Not Available [facility] [address] [place], [address], 12/17/2024 16:54:04 12/18/19 25 12/17/2024 urina lysis panel , auto Unknown Analyte Normal Not Available [facility] [address] [place], [address], 12/17/2024 16:54:04 12/18/19 25 12/17/2024 urina lysis panel , auto Unknown Analyte Negati ve Not Available [facility] With [address] [place], [address], 12/17/2024 16:54:04 12/18/19 25 12/17/2024 urina lysis panel , auto Unknown Analyte Negati ve Not Available [facility] With [address] [place], [address], 12/17/2024 16:54:04 12/18/19 25 12/17/2024 urina lysis panel , auto Unknown Analyte Normal Not Available [facility] With [address] [place], [address], 12/17/2024 16:54:04 12/18/19 25 12/17/2024 urina lysis panel , auto Unknown Analyte Normal Not Available [facility] [address] [place], [address], 12/17/2024 16:54:04 12/18/19 25 12/17/2024 urina lysis panel , auto Unknown Analyte 1 mg/dL Not Available [facility] With [address] [place], [address], 12/17/2024 16:54:04 12/18/19 25 12/17/2024 urina lysis panel , auto Unknown Analyte Negati ve Not Available [facility] With [address] [place], [place], [address], 12/17/2024 16:54:04 12/18/19 25 12/17/2024 urina lysis panel , auto Unknown Analyte Negati ve Not Available [facility] With [address] [place], [address], 12/17/2024 16:54:04 12/18/19 25 12/17/2024 urina lysis panel , auto Unknown Analyte Negati ve Not Available [facility] With [address] [place], [address], 12/17/2024 16:54:04 02/18/20 18 02/13/2018 CT, abdom en + pelvi s, w/o contr ast No observ ation record ed. [address] (Radiology) [address] , [place], [address], 02/17/2018 11:42:19 02/20/20 18 02/19/2018 XR, abdom en, 1 view No observ ation record ed. [email or web address] Not Available 2017 18:38:44 Result Notes None recorded. Problems No Known Problems Procedures Surgical History Date Name Laterality Status Provider Name and Address Organization Details Recorded Time Post Void Residual; Ultrasound completed Oksana Porras [facility] 11/23/2024 16:43:00 Imaging Results Imaging Date Name Status [facility] Details LastModified Time 02/13/2018 CT, abdomen + pelvis, w/o contrast completed [address] (Radiology) [address] [place], [address], 02/17/2018 11:42:19 02/19/2018 [facility], [facility] not available 02/20/2018 18:38:44 Procedure Notes None recorded. Medical Equipment None Reported. Allergies Allergen ID Allergen Name Allergen Category Reaction Reaction Severity Criticality Documentation Date Start Date Code Code System Note Provider Name and Address Organization Details Recorded Time 166682 Product containin g penicilli n (product) medicatio n Not available Not available Not available 02/18/2018 83932 [id number] SNOMED Petra Garzon [facility] 8 15:24:44 Medications Name Sig Start Date [...] Available Not Avai lable Not Available Vitals Date Recorded Body height Body mass index (BMI) Body weight Heart rate Systolic blood pressure Diastolic blood pressure Provider Name and Address Organization Details Last Updated DateTime 8 162.56 cm 25.7 kg/m2 12910.8 6 g 86 /min 131 mm[Hg] 78 mm[Hg] Murelene Toni [facility] 8 14:19:24 Date Recorded Body height Body mass index (BMI) Body weight Provider Name and Address Organization Details Last Updated DateTime 10/29/2024 160.02 cm 24.6 kg/m2 69664.34 g Blade Muñoz [facility] 10/29/2024 16:56:12 Date Recorded Body height Body mass index (BMI) Body weight Provider Name and Address Organization Details Last Updated DateTime 11/23/2024 160.02 cm 24.6 kg/m2 12132.34 g Oksana Porras [facility] 11/23/2024 16:32:09 Date Recorded Body height Body mass index (BMI) Body weight Provider Name and Address Organization Details Last Updated DateTime 12/17/2024 160.02 cm 24.6 kg/m2 64570.34 g Blade Muñoz [facility] 12/17/2024 16:53:18 Social History Question Answer Notes LastModified by Organizat ion Details LastModified Time Tobacco Smoking Status Former Smoker Blade Muñoz [facility] 10/29/2024 17:00:54 What Is Your Level Of Alcohol Consumption? Occasional [email or web address] Information not available 02/18/2018 Marital Status Informatio n not available 02/18/2018 What Was The Date Of Your Most Recent Tobacco Screening? 12/17/2024 [email or web address] Information not available 12/17/2024 Has Tobacco Cessation Counseling Been Provided? Yes [email or web address] Information not available 02/18/2018 On What Date Was Tobacco Cessation Counseling Provided? 02/26/2018 [email or web address] Information not available 02/26/2018 Sex: Unknown Functional Status None recorded. Mental Status None recorded. Family History Relationship Description Onset Age of this Age Resolved Age Notes LastModified by Organization Details LastModified Time Mother Family history of malignant neoplasm [email or web address] Not available 02/18 15:26:02 Maternal Grandmother Family history of malignant neoplasm [email or web address] Not available 02/18 15:26:10 Unspecified Relation Diabetes mellitus [email or web address] Not available 2024 16:59:53 Unspecified Relation Kidney disease [email or web address] Not available 2024 17:00:06 Medical History Condition Response Allergies/Hayfever Y Anxiety Disorder Y Pacemaker Y Arthritis Y Heart Conditions Y Kidney Stones Y Sleep Apnea Y Heart Arrhythmia Y Acid Reflux (GERD) Y Depression Y Gynecological HistoryNo gynecological history recorded. Obstetrics History GPAL:G 0 P 0 0 0 0 Past Encounters Encounter ID Performer Location Encounter Start Date Encounter Closed Date Diagnosis/Indication Diagnosis SNOMED-CT Code Diagnosis ICD10 Code Diagnosis Note [id number] LEO JOSE MD [facility] [address] [address] 02/18/2018 14:18:27 02/18/2018 15:58:52 Normal 39968112 Z34.90 Kidney stone 60783717 N2 0.0 Ureteric stone 12213454 N20.1 [id number] LEO JOSE MD [facility] [address] [address] 02/19/2018 13:56:01 02/19/2018 15:02:10 Ureteric stone 52711985 N20.1 [id number] LEO JOSE MD SURGERY SCHEDULE [address] [place] [address] 02/24/2018 07:20:26 02/24/2018 07:24:23 Ureteric stone 17229290 N20.1 [id number] LEO JOSE MD [facility] [address] [address] 02/26/2018 13:58:19 02/26/2018 14:38:30 Kidney stone 43482402 N20.0 [id number] ANGELI COLES MD [facility] [address] [facility],[place] [address] 10/29/2024 15:58:18 10/29/2024 19:05:50 Female stress incontinence 73059319 N39.3 Recurrent urinary tract infection 227239778 N39.0 [id number] ANGELI COLES MD SURGERY SCHEDULE [address] [place] [address] 11/17/2024 11:55:00 11/17/2024 11:56:20 Postoperative pain 605674527 G89.18 [id number] ANGELI COLES MD [facility] [address] [address] [address] 11/23/2024 16:25:47 11/23/2024 16:42:39 Female stress incontinence 55603988 N39.3 Recurrent urinary tract infection 539660353 N39.0 [id number] Blade [facility] [address] [address] 12/17/2024 16:37:18 12/18/2024 14:38:12 Urinary tract infectious disease 55956396 N39.0 Health Concerns Section Related Observation LastModified by Organization Detai ls LastModified Time None Recorded Concern Status LastModified by Organization Details LastModified Time None Recorded Advance Directives Directive None Recorded Payers Encounter Date Sequence Insurance Name Policy Number Policy Alcantara Covered Member ID Alc[place]ara Member ID Guarantor Name 02/26/2018 2 [place] [id number] 3 Alysa Busch Ockerman [id number] Alysa Ockerman 10/29/2024 2 [place] [id number] 3 Alysa Busch Ockerman [id number] Alysa Ockerman 11/17/2024 1 [place] [id number] 3 Alysa W Ockerman [id number] Alysa Ockerman 11/23/2024 1 [place] [id number] 3 Alysa Morales Ockerman [id number] Alysa Ockerman Notes Date Note Type Note Provider Name and Address Organization Details Recorded Time 02/26/2018 text/html she is back following ureteroscopy. She had passed her stone. She's having a lot of pain from the stent. His stent is removed today LEO JOSE MD [address] [place], [address], [facility] 02/26/2018 14:24:49 10/29/2024 text/html 38-year-old ilana le in the office for my initial evaluation and for discussion of phenol stress urinary incontinence. She has 5 pregnancies with 4 births. She voids only 2 or 3 times daily without nocturia. She has occasional hesitancy. She denies urinary urgency. She denies gross hematuria or dysuria unless she has UTI. She reports history of recurrent UTIs. She has significant, bothersome stress urinary incontinence with physical activity including laughing, sneezing, bending, twisting, exercising, etc. She has history of urolithiasis. She has history of pacemaker. ANGELI COLES MD [address] [place] [address], [address], [facility] 11/08/2024 18:43:10 11/23/2024 text/html 38-year-old ilana le in the office for follow-up evaluation and for discussion of phenol stress urinary incontinence status post sling placement. She has 5 pregnancies with 4 births. She denies gross hematuria or dysuria unless she has UTI. She reports history of recurrent UTIs. She has history of urolithiasis. She has history of pacemaker. She has been having frequent hesitancy. She has not had any leakage since placement of bladder sling. Patient with symptoms of urinary hesitancy. No gross hematuria or dysuria. ANGELI COLES MD [address] [place] [address], [address], [facility] 12/06/2024 14:19:54 OBGyn Episode No OBEpisode recorded.
--- OUTSIDE RECORDS SUMMARY | 2024-12-24 23:40 | XMS_ITS | Continuity of Care Document ---
Author Organization [facility] Jamaal méndez [facility] Address [address] [place] [address] Care Team Providers Care Assistant Basketball Coach Name Role Phone ADITI SALOMON Primary Care Provider Assessment Encounter Date Assessment Date Assessment LastModified [...] erosion into the vagina, urethra, bladder, etc. [email or web address] Not available 11/08/2024 18:42:47 Plan of Treatment Reminders Order Date Submit Date Provider Last Modified By Organization Details Last Modified Time Details Appointments RECHECK 2024 04:15P Jo-Ann CANNON MD Not available Not available Not available Lab urinalysi s panel, auto 2024 025 [email or web address] [id number] [facility], [address] [place] [address] [address], [place], [address], 11/08/2024 18:42:55 Referral None recorded. Procedures None recorded. Surgeries sling operation for stress incontine nce (SURG) 2024 03// 025 [email or web address] [facility] Professional Charges, [address] [facility], [facility] [address], [place], [address], 12/15/2024 11:47:38 Imaging None recorded. Medication Orders None recorded. Patient TargetsNo targets recorded. Patient Instructions Encounter Date Encounter Id Patient Instructions Last Modified By Organization Details Last Modified Time 10/29/2024 [id number] learning about healthy weight [email or web address] Not available 11/08/2024 18:42:55 Reason for Referral None Reported. Results Created Date Observation Date Name Description Value Unit Range Abnormal Flag Note LastModifiedBy Organization Detail LastModifiedTime 10/29/1910/29/2024 urina lysis panel , auto Unknown Analyte Clean Catch Not Available [facility] With [address], [place], [address], 10/29/2024 17:03:38 10/29/19 25 10/29/2024 urina lysis panel , auto Unknown Analyte Straw Not Available [facility] With [address], [place], [address], 10/29/2024 17:03:38 10/29/19 25 10/29/2024 urina lysis panel , auto Unknown Analyte Slight ly Hazy Not Available [facility] With [address], [place], [address], 10/29/2024 17:03:38 10/29/19 25 10/29/2024 urina lysis panel , auto Unknown Analyte 1.025 Not Available [facility] With [address], [place], [address], 10/29/2024 17:03:38 10/29/19 25 10/29/2024 urina lysis panel , auto Unknown Analyte 1.003- 1.035 Not Available [facility] With [address] [place], [place], [address], 10/29/2024 17:03:38 10/29/19 25 10/29/2024 urina lysis panel , auto Unknown Analyte 5.0 Not Available [facility] With [address] [place], [address], 10/29/2024 17:03:38 10/29/19 25 10/29/2024 urina lysis panel , auto Unknown Analyte 5.0-8. 0 Not Available [facility] With [address] [place], [address], 10/29/2024 17:03:38 10/29/19 25 10/29/2024 urina lysis panel , auto Unknown Analyte Negati ve Not Available [facility] With [address] [place], [address], 10/29/2024 17:03:38 10/29/19 25 10/29/2024 urina lysis panel , auto Unknown Analyte Negati ve Not Available [facility] With [address] [place], [address], 10/29/2024 17:03:38 10/29/19 25 10/29/2024 urina lysis panel , auto Unknown Analyte Negati ve Not Available [facility] With [address] [place], [address], 10/29/2024 17:03:38 10/29/19 25 10/29/2024 urina lysis panel , auto Unknown Analyte Negati ve Not Available [facility] With [address] [place], [address], 10/29/2024 17:03:38 10/29/19 25 10/29/2024 urina lysis panel , auto Unknown Analyte 30 mg/dl (+) Not Available [facility] With [address] [place], [place], [address], 10/29/2024 17:03:38 10/29/19 25 10/29/2024 urina lysis panel , auto Unknown Analyte Negati ve Not Available [facility] With [address] [place], [address], 10/29/2024 17:03:38 10/29/19 25 10/29/2024 urina lysis panel , auto Unknown Analyte Normal Not Available [facility] With [address] [place], [address], 10/29/2024 17:03:38 10/29/19 25 10/29/2024 urina lysis panel , auto Unknown Analyte Normal Not Available [facility] With [address], [place], [address], 10/29/2024 17:03:38 10/29/19 25 10/29/2024 urina lysis panel , auto Unknown Analyte Negati ve Not Available [facility] With [address] [place], [address], 10/29/2024 17:03:38 10/29/19 25 10/29/2024 urina lysis panel , auto Unknown Analyte Negati ve Not Available [facility] With [address] [place], [address], 10/29/2024 17:03:38 10/29/19 25 10/29/2024 urina lysis panel , auto Unknown Analyte 1 mg/dl Not Available [facility] With [address], [place], [address], 10/29/2024 17:03:38 10/29/19 25 10/29/2024 urina lysis panel , auto Unknown Analyte Normal 1 mg/dl Not Available [facility] With [address] [place], [address], 10/29/2024 17:03:38 10/29/19 25 10/29/2024 urina lysis panel , auto Unknown Analyte 1 mg/dl (+) Not Available [facility] With [address] [place], [address], 10/29/2024 17:03:38 10/29/19 25 10/29/2024 urina lysis panel , auto Unknown Analyte Negati ve Not Available [facility] With [address] [place], [address], 10/29/2024 17:03:38 10/29/19 25 10/29/2024 urina lysis panel , auto Unknown Analyte Negati ve Not Available [facility] With [address] [place], [address], 10/29/2024 17:03:38 10/29/19 25 10/29/2024 urina lysis panel , auto Unknown Analyte Negati ve Not Available [facility] With [address] [place], [address], 10/29/2024 17:03:38 Result Notes None recorded. Problems No Known Problems Procedures Surgical History Date Name Laterality Status Provider Name and Address Organization Details Recorded Time Post Void Residual; Ultrasound completed Oksana GRAF - [facility] 11/23/2024 16:43:00 Imaging Results None recorded. Procedure Notes None recorded. Medical Equipment None Reported. Allergies Allergen ID Allergen Name Allergen Category Reaction Reaction Severity Criticality Documentation Date Start Date Code Code System Note Provider Name and Address Organization Details Recorded Time 927644 Product containin g penicilli n (product) medicatio n Not available Not available Not available 02/18/2018 80811 8001 SNOMED Petra Garzon [facility] 8 15:24:44 Medications Name Sig Start Date [...] Updated DateTime 10/29/2024 160.02 cm 24.6 kg/m2 62856.34 g Stuartjl Toni [facility] 10/29/2024 16:56:12 Social History Question Answer Notes LastModified by Organizat ion Details LastModified Time Tobacco Smoking Status Former Smoker Blade Cortezt [facility] 10/29/2024 17:00:54 What Is Your Level Of Alcohol Consumption? Occasional [email or web address] Information not available 02/18/2018 Marital Status [email or web address] Informatio n not available 02/18/2018 What Was The Date Of Your Most Recent Tobacco Screening? 12/17/2024 [email or web address] Information not available 12/17/2024 Has Tobacco Cessation Counseling Been Provided? Yes [email or web address] Information not available 02/18/2018 On What Date Was Tobacco Cessation Counseling Provided? 02/26/2018 [email or web address] Information not available 02/26/2018 Sex: Unknown Functional Status None recorded. Mental Status None recorded. Family History Relationship Description Onset Age of this Age Resolved Age Notes LastModified by Organization Details LastModified Time Mother Family history of malignant neoplasm [email or web address] Not available 02/18 15:26:02 Maternal Grandmother Family history of malignant neoplasm [email or web address] Not available 02/18 15:26:10 Unspecified Relation Diabetes mellitus [email or web address] Not available 2024 16:59:53 Unspecified Relation Kidney disease [email or web address] Not available 2024 17:00:06 Medical History Condition [...] SNOMED-CT Code Diagnosis ICD10 Code Diagnosis Note [id number] ANGELI CANNON MD [facility] [address] [place] [address],[place] [address] 10/29/2024 15:58:18 10/29/2024 19:05:50 Female stress incontinence 60496622 N39.3 Recurrent urinary tract infection 820126966 N39.0 Health Concerns Section Related Observation LastModified by Organization Detai ls LastModified Time None Recorded Concern Status LastModified by Organization Details LastModified Time None Recorded Payers Encounter Date Sequence Insurance Name Policy Number Policy Alcantara Covered Member ID Alcantara Member ID Guarantor Name 10/29/2024 2 [place] [id number] Alysa Mancini [id number] Alysa Mancini Notes Date Note Type Note Provider Name and Address Organization Details Recorded Time 10/29/2024 text/html 38-year-old ilana mallory in the office for my initial evaluation [...] urolithiasis. She has history of pacemaker. ANGELI CANNON MD [address] [place] [address], [address], [place] [facility] 11/08/2024 18:43:10 OBGyn Episode No OBEpisode recorded.
--- OUTSIDE RECORDS SUMMARY | 2024-12-24 23:40 | XMS_ITS | Data Portability ---
Author Organization [place] - [facility] [place] [facility] [place] [facility] Address [address] [place] [id number] Assessment Encounter Date Assessment Date Assessment LastModified by Organization Details LastModified Time 11/05/2022 11/05/2022 Patient Educatio n was printed, I have reviewed the Past Medical, Family, and Social Histories along with ROS and all orders in today's record, and have noted any changes. Medications, charts and records reviewed in full today. . EKG today reveals Sinus tachycardia with rate of 103 beats per minute, IVCD, poor R-wave progression, nonspecific T-wave abnormality, abnormal EKG. Baseline. Blood pressure 116/82, heart rate 103, weight 180.6 lb. . LAST ECHO: None on file. PAST ECHO: 2021 Awaiting results from [facility]. LAST ISCHEMIC EVAL: 2021 Awaiting results from [facility]. LAST HEART CATH: 2021 Awaiting results from [facility]. LAST LDL: None on file. LAST CNI: None on file. CARDIAC MRI:07/2022 revealed normal LV size with low normal systolic function LVEF 53%. No scar or fibrosis. Small bilateral pleural effusions. Otherwise largely normal cardiac MRI. . Plan: Stop Entresto. Start furosemide 20 mg once daily as needed for swelling, and shortness of breath. Start carvedilol 6.25 twice daily for tachycardia in the setting of prior takotsubo cardiomyopathy. Formed away, the patient's presentation is consistent with takotsubo cardiomyopathy. The patient's ejection fraction by cardiac MRI was low normal at 53%. The patient's initial echocardiogram could of been abnormal due to cardiomyopathy, or could have been misread as a reduced ejection fraction secondary to left bundle branch block. We will obtain that report. Obtain records from [facility]. Heart failure education provided. Monitor daily weights every morning, call and report 3 lbs increase in one day, 5 lbs increase in one week. Follow-up in 3 to 4 weeks. . -Continue other current medications. -Continue aggressive risk factor modification. -Recommend LDL less than 100. -Encouraged regular exercise and activity. . Dillon Henson APRN, am scribing for, and in the presence of, Leo Garcia MD. . Leo Henson M.D. performed the services as described in this documentation, as scribed by Dillon Forrest APRN in my presence, and it is both accurate and complete. . This note was dictated using [employer] software. If something is unclear, or does not make sense, please do not hesitate to contact our office at [phone] for clarification. Not available 11/05/2022 12:15:54 12/04/2022 12/04/2022 Patient Educatio n was printed, I have reviewed the Past Medical, Family, and Social Histories along with ROS and all orders in today's record, and have noted any changes. Medications, charts and records reviewed in full today. Blood pressure 130/92, heart rate 82, weight 184.6 lb. Oxygen saturation is 98% on room air. - LAST ECHO: 11/2022 revealed normal LVEF of 55% to 60%. PAST ECHO: 2021 Awaiting results from [facility]. LAST ISCHEMIC EVAL: 2021 Awaiting results from [facility]. LAST HEART CATH: 2021 Awaiting results from [facility]. LAST LDL: None on file. LAST CNI: None on file. CARDIAC MRI:07/2022 revealed normal LV size with low normal systolic function LVEF 53%. No scar or fibrosis. Small bilateral pleural effusions. Otherwise largely normal cardiac MRI. - Plan: We had a long discussion regarding the origin of the patient's apparent low ejection fraction last February,. We still not seen records from [facility], although it is likely that the patient had either takotsubo cardiomyopathy or an abnormal appearing left ventricular ejection fraction due to her intraventricular conduction delay. The patient has had her LVEF confirmed above 50% on two tests, an MRI of the heart in July 2022, and an echocardiogram in our facility just a few weeks ago. The patient's apparent cardiomyopathy has resolved. We have had a long discussion about her expected disease course, and the risks of recurrence. We would like to see the patient continue on her carvedilol due to her baseline tachycardia, and her intermittent palpitations which are tachycardia-like in nature. The patient will be instructed to take her carvedilol twice daily as prescribed. The patient has no other complaints and, from a cardiovascular standpoint, the patient really has no restrictions at this time. We did discuss that if she decides to get again, it may warrant changing her beta flex for an alternative medication, and consideration of a possible echocardiogram for evaluation of gestational cardiomyopathy. - Continue carvedilol, although adjust to take twice daily every day. Obtain records from [facility] as before. EKG at follow-up. Follow-up in four months. - -Continue other current medications. -Continue aggressive risk factor modification. -Recommend LDL less than 100. -Encouraged regular exercise and activity. - This note was dictated using [employer] software. If something is unclear, or does not make sense, please do not hesitate to contact our office at [phone] for clarification. Not available 12/04/2022 15:33:17 Plan of Treatment Reminders Order Date Submit Date Provider Last Modified By Organization Details Last Modified Time Details Appointments None recorded. Lab None recorded. Referral None recorded. Procedures None recorded. Surgeries None recorded. Imaging electrocard iogram 2022 023 [facility], [address] [place] [address] [address], [place], [address], 3 15:46:02 US, echocardiog abundio, transthorac ic, complete, w/ color flow 2022 023 [email or web address] 1 [employer] (Centralized Scheduling), [address] [facility] , [place], [address], 3 07:39:38 Medication Orders furosemide 20 mg tablet 2022 023 [employer], [address] [place] [address], [id number], 15:43:59 carvedilol 6.25 mg tablet 2022 023 [facility] [employer], [address] [place] [address], [id number], 11:31:52 Patient TargetsNo targets recorded. Patient Instructions Encounter Date Encounter Id Patient Instructions Last Modified By Organization Details Last Modified Time 11/05/2022 [id number] broken heart syndrome: care instructions Not available 11/05/2022 11:17:48 learning about broken heart syndrome Not available 11/05/2022 11:17:48 Reason for Referral None Reported. Results Created Date Observation Date Name Description Value Unit Range Abnormal Flag Note LastModifiedBy Organization Detail LastModifiedTime 11/05/19 elect rocar diogr am No observ ation record ed. [email or web address] [address], [place], [address], 11/05/2022 15:28:59 11/05/1911/05/2022 elect rocar diogr am No observ ation record ed. [email or web address] Not Available 15:29:44 12/13/19 23 12/12/2022 - ECHO w/spe c/col or flow [facility] l Name: TIKAYORDY FLANAGANTASHI 04 Page Streeta l [facility] Phys: Jose TYSON, [place] [address] : 1985 Age: 36 Sex: F Acct: [id number] Loc: WES PHONE #: [phone] Exam Date: 2022 Status : DEP CLI FAX #: Rad# Unit# [id number] Admit Date: 2022 EXAMS: CPT CODE: [id number] ECHO W/SPEC /COLOR FLOW 50083 Reason for study: Cardio myopat hy Left ventri cular diasto le: 4.8 Left ventri cular systol e: 3.5 Septal wall thickn ess: 1.0 Principal Investigator ior wall thickn ess: 1.1 Right ventri cular diasto le: 1.9 Left Atrium : 3.4 Aortic root: 2.6 TR veloci ty: Less than 2.0 m/s Impres messi: 1. Normal left ventri cular chambe r size with border line normal left ventri cular systol ic functi on. Estima paulette ejecti on fracti on is 50% 2. No segmen dyan wall motion abnorm alitie s are noted. There is abnorm al septal wall motion 3. Normal left atrial and right atrial size 4. Normal right ventri cular size and functi on 5. Normal mitral valve, with no mitral insuff icienc y 6. Normal aortic valve with no aortic insuff icienc y 7. No perica rdial effusi on 8. Normal aortic root 9. Normal tricus pid valve with tricus pid regurg itant jet veloci ty less than 2.0 m/s implyi ng normal right ventri cular systol ic pressu re Electr onical ly Signed by LEO GARCIA MD on 2022 at 1332 Report ed and signed by: LEO GARCIA MD CC: Leo Garcia MD; Prem bah APRN; NO PRIMAR Y CARE PHYSIC FRANCISCA Dictat ed Date/T chance: 2022 (1332) Techno logist : JAMEL MORENO Transc ribed Date/T cahnce: 2022 (1332) Transc riptio nist: DR.LOH MARIN Electr onic Signat ure Date/T chance: 2022 (1332) Printe d Date/T chance: 2022 (1352) BATCH NO: N/A PAGE 1 Signed Report CC'ed Logic: Orderi ng Provid er: JOSE BAILEY Attend ing Provid er: AG RODRIGUEZ Referr ing Provid er: AG RODRIGUEZ Consul ting Provid er: PHYSIC FRANCISCA NO [email or web address], [place], [address], 12/12/2022 15:56:05 03/07/20 23 03/07/2023 medic al recor d reque st* No observ ation record ed. [email or web address] Not Available 03/07 16:16:09 Result Notes None recorded. Problems Name Problem SNOMED Code Status Onset Date Resolution Date Notes Provider Name and Address Organization Details Recorded Time Sinus tachycardia 85354868 Active 2022 DILLON FORREST NP, [facility] [employer] [facility],[address], [place], [address], [place] - [facility] [place] [facility] [place] 3 12:08:58 Mixed anxiety and depressive disorder 744600425 Active 2022 DILLON FORREST NP, [facility] [employer] [facility],[address], [place], [address], [place] [facility] [place] [facility] [place] 3 12:09:00 Gastroesophage al reflux disease without esophagitis 517486915 Active 2022 DILLON FORREST NP, [facility] [employer] [facility] [place], [place], [address], [place] [facility] [place] 3 12:09:01 Takotsubo cardiomyopathy 924870144 Active 2022 DILLON FORREST NP, [facility] [employer] [facility],[address], [address], [place] [facility] [place] 3 12:09:05 Problem Notes None recorded. Procedures Surgical History Date Name Laterality Status Provider Name and Address Organization Details Recorded Time tonsillectomy completed Loretta GRFA - [facility] [place] [facility] [place] 11/05/2022 15:27:56 lumpectomy of breast completed Loretta GRAF - [facility] & [place] 11/05/2022 15:28:12 Imaging Results Imaging Date Name Status LastModified by Organization Details LastModified Time 11/05/2022 electrocardiogram completed [facility] [address], [place], [address], 11/05/2022 15:28:59 11/05/2022 electrocardiogram completed Info rmation not available 11/05/2022 15:29:44 12/12/2022 - ECHO w/spec/color flow completed [email or web address] [place] [address] [address] , [place], [address], 12/12/2022 15:56:05 03/07/2023 medical record request* completed [email or web address] Information not available 03/07/2023 16:16:09 Procedure Notes None recorded. Medical Equipment None Reported. Allergies Allergen ID Allergen Name Allergen Category Reaction Reaction Severity Criticality Documentation Date Start Date Code Code System Note Provider Name and Address Organization Details Recorded Time 86078 Product containin g penicilli n (product) medicatio n Not available Not available Not available 11/05/2022 73121 8001 SNOMED Loretta jeong [facility] & [place] 3 15:12:19 Medications Name Sig Start Date Stop Date Status Note LastModified by Organization Details LastModified Time quetiapine 25 mg tablet TAKE 4 TABLETS IN THE EVENING. MAY ALSO TAKE 1 TABLET 2 TIMES EACH DAY NEEDED FOR ANXIETY. 11/05 completed Not Available Not Available Not Available buspirone 5 mg tablet 11/05 completed Not Available Not Available Not Available lamotrigine 150 mg tablet TAKE 1 TABLET 1 TIME EACH DAY 11/05 completed Not Available Not Available Not Available carvedilol 6.25 mg tablet TAKE 1 TABLET 2 TIMES EACH DAY active Not Available Not Available No t Available venlafaxine ER 75 mg capsule,ext ended release 24 hr TAKE 1 CAPSULE 1 TIME EACH DAY 11/05 completed Not Available Not Available Not Available triazolam 0.25 mg tablet TAKE 1 TABLET AT BEDTIME THE NIGHT BEFORE DENTAL APPOINTME NT. TAKE 1 TABLET 1 HOUR BEFORE APPOINTME NT. TAKE 1 TABLET TO THE APPOINTME NT. active Not Available Not Available No t Available trazodone 50 mg tablet TAKE 3 TABLETS 1 TIME EACH DAY IN THE EVENING active Not Available Not Available No t Available alprazolam 1 mg tablet TAKE 1 TABLET EVERY 6 HOURS 11/05 completed Not Available Not Available Not Available ondansetron HCl 4 mg tablet TAKE 1 TABLET EVERY 6 TO 8 HOURS NEEDED FOR NAUSEA AND VOMITING active Not Available Not Available No t Available quetiapine 200 mg tablet TAKE 1 TABLET 1 TIME EACH DAY AT BEDTIME FOR DEPRESSIO N AND SLEEP 11/05 completed Not Available Not Available Not Available olanzapine 5 mg tablet TAKE 1 TO 2 TABLETS BY MOUTH EVERY NIGHT AT BEDTIME ANXIETY/M OOD 11/05 completed Not Available Not Available Not Available olanzapine 10 mg tablet TAKE ONE TABLET BY MOUTH EVERY NIGHT AT BEDTIME FOR MOOD 11/05 completed Not Available Not Available Not Available hydroxyzine HCl 50 mg tablet TAKE 1 TABLET 3 TIMES EACH DAY NEEDED FOR ANXIETY active Not Available Not Available No t Available phentermine 37.5 mg tablet TAKE 1 TABLET 1 TIME EACH DAY 11/05 completed Not Available Not Available Not Available ciprofloxac in 500 mg tablet TAKE 1 TABLET 2 TIMES EACH DAY FOR 10 DAYS 11/05 completed Not Available Not Available Not Available omeprazole 40 mg capsule,del ayed release TAKE 1 CAPSULE 1 TIME EACH DAY active Not Available Not Available No t Available bupropion HCl SR 100 mg tablet,12 hr sustained-r elease TAKE 1 TABLET BY MOUTH EVERY MORNING FOR DEPRESSIO N 11/05 completed Not Available Not Available Not Available lamotrigine 25 mg tablet TAKE 1 TABLET 1 TIME EACH DAY FOR 14 DAYS. THEN, TAKE 2 TABLETS 1 TIME EACH DAY. 11/05 completed Not Available Not Available Not Available oxycodone-a cetaminophe n 5 mg-325 mg tablet TAKE 1 TABLET EVERY 4 TO 6 HOURS NEEDED FOR PAIN active Not Available Not Available No t Available propranolol 40 mg tablet TAKE 1 TABLET 3 TIMES EACH DAY 11/05 completed Not Available Not Available Not Available trazodone 150 mg tablet TAKE 1 TO 2 TABLETS 1 TIME EACH DAY AT BEDTIME 11/05 completed Not Available Not Available Not Available buspirone 30 mg tablet TAKE 1 TABLET 2 TIMES EACH DAY active Not Available Not Available No t Available buspirone 10 mg tablet 11/05 completed Not Available Not Available Not Available promethazin e 25 mg tablet TAKE 1 TABLET EVERY 6 HOURS NEEDED FOR NAUSEA active Not Available Not Available No t Available benztropine 1 mg tablet TAKE 8 TABLETS 1 TIME EACH DAY 11/05 completed Not Available Not Available Not Available docusate sodium 100 mg capsule TAKE 1 CAPSULE BY MOUTH EVERY NIGHT AT BEDTIME FOR CONSTIPAT ION 11/05 completed Not Available Not Available Not Available gabapentin 300 mg capsule TAKE 2 CAPSULES 3 TIMES EACH DAY active Not Available Not Available No t Available buspirone 7.5 mg tablet 11/05 completed Not Available Not Available Not Available hydroxyzine HCl 25 mg tablet TAKE 1 OR 2 TABLETS EVERY 6 HOURS 12/04 completed Not Available Not Available Not Available furosemide 20 mg tablet TAKE 1 TABLET 1 TIME EACH DAY NEEDED active Not Available Not Available No t Available gabapentin 100 mg capsule TAKE 1 CAPSULE 3 TIMES EACH DAY 11/05 completed Not Available Not Available Not Available lorazepam 1 mg tablet TAKE 1 TABLET 3 TIMES EACH DAY NEEDED FOR ANXIETY active Not Available Not Available No t Available diazepam 10 mg tablet TAKE 1 TABLET TO APPOINTME NT 11/05 completed Not Available Not Available Not Available Vitamin D2 1,250 mcg (50,000 unit) capsule TAKE 1 CAPSULE 1 TIME EACH WEEK 11/05 completed Not Available Not Available Not Available propranolol 20 mg tablet TAKE 1 TABLET 3 TIMES EACH DAY 11/05 completed Not Available Not Available Not Available topiramate 100 mg tablet TAKE 1 TABLET 1 TIME EACH DAY AT BEDTIME 11/05 completed Not Available Not Available Not Available sertraline 50 mg tablet TAKE 1 TABLET 1 TIME EACH DAY 11/05 completed Not Available Not Available Not Available lamotrigine 100 mg tablet TAKE 1 TABLET 1 TIME EACH DAY AT BEDTIME FOR MOOD 11/05 completed Not Available Not Available Not Available glycopyrrol ate 2 mg tablet TAKE 1 TABLET 4 TIMES EACH DAY active Not Available Not Available No t Available diazepam 5 mg tablet TAKE 1 TABLET 2 TIMES EACH DAY NEEDED FOR SEVERE ANXIETY 11/05 completed Not Available Not Available Not Available buspirone 15 mg tablet TAKE 1 TABLET 3 TIMES EACH DAY 12/04 completed Not Available Not Available Not Available aripiprazol e 5 mg tablet 11/05 completed Not Available Not Available Not Available topiramate 50 mg tablet TAKE 1 TABLET 1 TIME EACH DAY AT BEDTIME 11/05 completed Not Available Not Available Not Available nitrofurant oin monohydrate /macrocryst als 100 mg capsule TAKE 1 CAPSULE 2 TIMES EACH DAY FOR URINARY TRACT INFECTION . 11/05 completed Not Available Not Available Not Available duloxetine 30 mg capsule,del ayed release TAKE 1 CAPSULE 1 TIME EACH DAY. DO NOT CRUSH OR CHEW. 11/05 completed Not Available Not Available Not Available lactulose 10 gram/15 mL oral solution 11/05 completed Not Available Not Available Not Available ferrous gluconate 324 mg (38 mg iron) tablet TAKE 1 TABLET BY MOUTH TWICE DAILY FOR SUPPLEMEN T 11/05 completed Not Available Not Available Not Available vilazodone 40 mg tablet TAKE 1 TABLET 1 TIME EACH DAY 11/05 completed Not Available Not Available Not Available Latuda 20 mg tablet 11/05 completed Not Available Not Available Not Available Entresto 24 mg-26 mg tablet TAKE 1 TABLET 2 TIMES EACH DAY 11/05 completed Not Available Not Available Not Available Vraylar 1.5 mg capsule TAKE 1 CAPSULE 1 TIME EACH DAY 11/05 completed Not Available Not Available Not Available Vraylar 3 mg capsule TAKE 1 CAPSULE 1 TIME EACH DAY 11/05 completed Not Available Not Available Not Available Reguloid (psyllium husk) 0.4 gram capsule TAKE 2 CAPSULES BY MOUTH TWICE DAILY FOR SUPPLEMEN T 11/05 completed Not Available Not Available Not Available [facility] 10 billion cell-200 mg capsule TAKE 1 CAPSULE BY MOUTH EVERY MORNING 11/05 completed Not Available Not Available Not Available Auvelity 45 mg-105 mg tablet, extended release TAKE 1 TABLET 2 TIMES EACH DAY active Not Available Not Available No t Available Vitals Date Recorded Body height Body mass index (BMI) Body weight Oxygen saturation Oxygen saturation in Arterial blood by Pulse oximetry Heart rate Systolic blood pressure Diastolic blood pressure Provider Name and Address Organization Details Last Updated DateTime 3 162.56 cm 31 kg/m2 35716.7 8 g 99 % 99 % 103 /min 116 mm[Hg] 82 mm[Hg] Loretta jeong [place] - [facility] 3 15:11:53 Date Recorded Body height Body mass index (BMI) Body weight Oxygen saturation Oxygen saturation in Arterial blood by Pulse oximetry Heart rate Systolic blood pressure Diastolic blood pressure Provider Name and Address Organization Details Last Updated DateTime 3 162.56 cm 31.7 kg/m2 74885.1 5 g 98 % 98 % 82 /min 130 mm[Hg] 92 mm[Hg] Zeny Boyce [facility] & [place] 3 13:47:41 Social History Question Answer Notes LastModified by Organizat ion Details LastModified Time Tobacco Smoking Status Former Smoker Loretta Gonzales null, [facility] & [place] 11/05/2022 15:27:42 What Is Your Level Of Alcohol Consumption? None [email or web address] Information not available 11/05/2022 Do You Or Have You Ever Used E-cigarettes Or Vape? Current User Of Electronic Cigarettes [email or web address] Information not available 11/05/2022 When Did You Quit Smoking? 1-5yearssincel astcigarette 2021 [email or web address] Information not available 11/05/2022 Do You Use Any Illicit Or Recreational Drugs? No Information not available 11/05/2022 Do You Or Have You Ever Used Any Other Forms Of Tobacco Or Nicotine? Yes [email or web address] Information not available 11/05/2022 Sex: Unknown Functional Status None recorded. Mental Status None recorded. Family History Relationship Description Onset Age of this Age Resolved Age Notes LastModified by Organization Details LastModified Time Mother Depressive disorder [email or web address] Not available 15:26:58 Medical History Condition Response Chest Pain Y Shortness of Breath Y Dizziness or Fainting Y Poor Exercise Tolerance Y Gynecological HistoryNo gynecological history recorded. Obstetrics History GPAL:G 0 P 0 0 0 0 Past Encounters Encounter ID Performer Location Encounter Start Date Encounter Closed Date Diagnosis/Indication Diagnosis SNOMED-CT Code Diagnosis ICD10 Code Diagnosis Note [id number] Leo Garcia MD [place] [address] [place] [address] 11/05/2022 09:05:07 11/05/2022 11:17:37 Takotsubo cardiomyopathy 610996737 I51.81 Sinus tachycardia 349150 01 R00.0 Mixed anxi ety and depressive disorder 488785232 F41.8 Gastroesop hageal reflux disease without esophagitis 479617587 K21.9 [id number] DILLON FORREST NP, S [facility] [address] [place] [address] 12/04/2022 13:39:23 12/04/2022 14:43:03 Takotsubo cardiomyopathy 631144646 I51.81 Sinus tachycardia 370369 01 R00.0 Mixed anxi ety and depressive disorder 422899458 F41.8 Gastroesop hageal reflux disease without esophagitis 591546938 K21.9 Health Concerns Section Related Observation LastModified by Organization Detai ls LastModified Time None Recorded Concern Status LastModified by Organization Details LastModified Time None Recorded Advance Directives Directive None Recorded Payers Encounter Date Sequence Insurance Name Policy Number Policy Alcantara Covered Member ID Alcantara Member ID Guarantor Name 11/05/2022 1 [place] [id number] 3 Alysa Mancini [id number] Alysa Mancini 12/04/2022 1 [place] [id number] 3 Alysa Toddmandochelsie [id number] Alysa Mancini Notes Date Note Type Note Provider Name and Address Organization Details Recorded Time 11/05/2022 text/html Alysa is a 36-year-old female who is seen today as a new patient. The patient has a history significant for depression, tobacco abuse, and heart failure with reduced ejection fraction. The patient was in her normal state of health until she had a psychiatric Emergency in February of 2022 while taking Viibryd. The patient presented to the emergency room at [facility] and was found have left bundle branch block by EKG. The patient was subsequently referred to Cardiology. The patient underwent an echocardiogram, chemical Myoview stress test, and a left heart catheterization. The results of these tests are not currently available, although the patient reports a decreased ejection fraction on echocardiogram, and normal coronary arteries. The patient was subsequently sent to the [facility] where she underwent a cardiac MRI in July of 2022. the cardiac MRI revealed normal LV size with low normal systolic function of 53%. No scar or fibrosis was noted. Patient also had normal RV size with preserved ejection fraction of 54%. There was no intracardiac shunt. Rest perfusion images were normal. Small bilateral pleural effusions were noted. The patient's cardiac MRI was otherwise essentially normal.The patient continues to have some intermittent shortness of breath, worsened with exertion, and improved with rest. 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 Patient was started on Entresto, and taken off of propranolol over the course of the last year. DILLON FORREST NP, [facility] [employer] [facility] [facility],[address], [place], [address], [place] [facility] - [place] 11/05/2022 15:46:06 12/04/2022 text/html Alysa is a 36-year-old female who is seen today in follow up. The patient has a history significant for depression, tobacco abuse, and heart failure with reduced ejection fraction. This patient originally came to see us after she suffered an episode of apparent cardiomyopathy for which she was hospitalized at [facility] in February 2022. In the ensuing months she went through multiple rounds of testing with both [facility] and the [facility]. A cardiac MRI at the [facility] confirmed an LVEF of 53% in July 2022. No scar or fibrosis was noted, and was otherwise largely normal. The patient's Entresto was discontinued at our 1st visit. The patient was given furosemide 20 mg to be used once daily as needed for swelling. The patient has not needed this medication to this point. Since our last visit, the patient had a follow-up echocardiogram which revealed a normal LVEF of 55% to 60%. This confirmed what was seen on cardiac MRI at the [facility]. We still not received records from [facility] regarding her original echocardiogram, left heart catheterization, and stress test which revealed apparent cardiomyopathy with normal coronary arteries according to patient. The patient reports that she is been doing well on the carvedilol. The patient often only takes it once daily though because she only eats once per day. The patient has occasional tachycardia like palpitations. The patient's shortness of breath has improved significantly. The patient has no other cardiovascular or cardiopulmonary complaints. DILLON FORREST NP, [address] [place] [address],[address], [place], [address], [place] 12/04/2022 15:34:07 OBGyn Episode No OBEpisode recorded.
--- OUTSIDE RECORDS SUMMARY | 2024-12-24 23:40 | XMS_ITS | Continuity of Care Document ---
Author Organization [facility] Jamaal méndez [facility] Address [address] [place] [address] [address] [place] [address] Care Team Providers Care Metal Technician Name Role Phone ADITI SALOMON Primary Care Provider [phone] Assessment Encounter Date Assessment Date Assessment LastModified by Organization Details LastModified Time 11/23/2024 11/23/2024 Continue to monitor urinary hesitancy. [...] to the incomplete emptying. Follow-up with [facility]. [email or web address] Not available 12/06/2024 14:19:39 Plan of Treatment Reminders Order Date Submit Date Provider Last Modified By Organization Details Last Modified Time Details Appointments RECHECK 2024 04:15P Jo-Ann CANNON MD Not available Not available Not available Lab urinalysi s panel, auto 2024 025 [email or web address] Formerly [facility], [address] [place] [address], [address], [place], [address], 11/25/2024 13:17:40 Referral None recorded. Procedures None recorded. Surgeries None recorded. Imaging None recorded. Medication Orders None recorded. Patient TargetsNo targets recorded. Patient InstructionsNo instructions recorded. Reason for Referral None Reported. Results Created Date Observation Date Name Description Value Unit Range Abnormal Flag Note LastModifiedBy Organization Detail LastModifiedTime 11/24/19 25 11/23/2024 urina lysis panel , auto Unknown Analyte Clean Catch Not Available [facility] [address], [place], [address], 11/23/2024 16:32:23 11/24/19 25 11/23/2024 urina lysis panel , auto Unknown Analyte Yellow Not Available [facility] [address] [place] [address] [address], [place], [address], 11/23/2024 16:32:23 11/24/19 25 11/23/2024 urina lysis panel , auto Unknown Analyte Slight ly Cloudy Not Available [facility] [address], [place], [address], 11/23/2024 16:32:23 11/24/19 25 11/23/2024 urina lysis panel , auto Unknown Analyte 1.015 Not Available [facility] [address] [place] [address] [address], [place], [address], 11/23/2024 16:32:23 11/24/19 25 11/23/2024 urina lysis panel , auto Unknown Analyte 1.003 - 1.030 Not Available [facility] [address] [place] [address] [address], [place], [address], 11/23/2024 16:32:23 11/24/19 25 11/23/2024 urina lysis panel , auto Unknown Analyte 5.0 Not Available [facility] [address] [place] [address] [address], [place], [address], 11/23/2024 16:32:23 11/24/19 25 11/23/2024 urina lysis panel , auto Unknown Analyte 5.0 - 8.0 Not Available [facility] [address], [place], [address], 11/23/2024 16:32:23 11/24/19 25 11/23/2024 urina lysis panel , auto Unknown Analyte Negati ve Not Available [facility] [address], [place], [address], 11/23/2024 16:32:23 11/24/19 25 11/23/2024 urina lysis panel , auto Unknown Analyte Negati ve Not Available [facility] [address], [place], [address], 11/23/2024 16:32:23 11/24/19 25 11/23/2024 urina lysis panel , auto Unknown Analyte Negati ve Not Available [facility] [address], [place], [address], 11/23/2024 16:32:23 11/24/19 25 11/23/2024 urina lysis panel , auto Unknown Analyte Negati ve Not Available [facility] [address], [place], [address], 11/23/2024 16:32:23 11/24/19 25 11/23/2024 urina lysis panel , auto Unknown Analyte Negati ve Not Available [facility] [address], [place], [address], 11/23/2024 16:32:23 11/24/19 25 11/23/2024 urina lysis panel , auto Unknown Analyte Negati ve Not Available [facility] [address], [place], [address], 11/23/2024 16:32:23 11/24/19 25 11/23/2024 urina lysis panel , auto Unknown Analyte >1000 mg/dL Not Available [facility] [address], [place], [address], 11/23/2024 16:32:23 11/24/19 25 11/23/2024 urina lysis panel , auto Unknown Analyte Normal Not Available [facility] [address], [place], [address], 11/23/2024 16:32:23 11/24/19 25 11/23/2024 urina lysis panel , auto Unknown Analyte Negati ve Not Available [facility] [address], [place], [address], 11/23/2024 16:32:23 11/24/19 25 11/23/2024 urina lysis panel , auto Unknown Analyte Negati ve Not Available [facility] [address], [place], [address], 11/23/2024 16:32:23 11/24/19 25 11/23/2024 urina lysis panel , auto Unknown Analyte Normal Not Available [facility] [address], [place], [address], 11/23/2024 16:32:23 11/24/19 25 11/23/2024 urina lysis panel , auto Unknown Analyte Normal Not Available [facility] [address], [place], [address], 11/23/2024 16:32:23 11/24/19 25 11/23/2024 urina lysis panel , auto Unknown Analyte Negati ve Not Available [facility] [address] [place] [address] [address], [place], [address], 11/23/2024 16:32:23 11/24/19 25 11/23/2024 urina lysis panel , auto Unknown Analyte Negati ve Not Available [facility] [address] [facility] [address], [place], [address], 11/23/2024 16:32:23 11/24/19 25 11/23/2024 urina lysis panel , auto Unknown Analyte 50 Rocael/uL Not Available [facility] [address] [facility] [address], [place], [address], 11/23/2024 16:32:23 11/24/19 25 11/23/2024 urina lysis panel , auto Unknown Analyte Negati ve Not Available [facility] [address], [place], [address], 11/23/2024 16:32:23 Result Notes None recorded. Problems No Known Problems Procedures Surgical History Date Name Laterality Status Provider Name and Address Organization Details Recorded Time Post Void Residual; Ultrasound completed Oksana Porras [facility] 11/23/2024 16:43:00 Imaging Results None recorded. Procedure Notes None recorded. Medical Equipment None Reported. Allergies Allergen ID Allergen Name Allergen Category Reaction Reaction Severity Criticality Documentation Date Start Date Code Code System Note Provider Name and Address Organization Details Recorded Time 849485 Product containin g penicilli n (product) medicatio n Not available Not available Not available 02/18/2018 72544 8001 SNOMED Petra Garzon [facility] 15:24:44 Medications Name Sig Start Date Stop [...] Updated DateTime 11/23/2024 160.02 cm 24.6 kg/m2 49003.34 g Oksana Vern [facility] 11/23/2024 16:32:09 Social History Question Answer Notes LastModified by Organizat ion Details LastModified Time Tobacco Smoking Status Former Smoker Blade Muñoz [facility] 10/29/2024 17:00:54 What Is Your Level Of Alcohol Consumption? Occasional [email or web address] Information not available 02/18/2018 Marital Status [email or web address] Informatio n not available 02/18/2018 What Was The Date Of Your Most Recent Tobacco Screening? 12/17/2024 [email or web address] Information not available 12/17/2024 Has Tobacco Cessation Counseling Been Provided? Yes [email or web address] Information not available 02/18/2018 On What Date Was Tobacco Cessation Counseling Provided? 02/26/2018 [email or web address] Information not available 02/26/2018 Sex: Unknown Functional Status None recorded. Mental Status None recorded. Family History Relationship Description Onset Age of this Age Resolved Age Notes LastModified by Organization Details LastModified Time Mother Family history of malignant neoplasm [email or web address] Not available 02/18 15:26:02 Maternal Grandmother Family history of malignant neoplasm [email or web address] Not available 02/18 15:26:10 Unspecified Relation Diabetes mellitus [email or web address] Not available 2024 16:59:53 Unspecified Relation Kidney disease [email or web address] Not available 2024 17:00:06 Medical History Condition Response Kidney Stones Y Heart Arrhythmia Y Depression Y Anxiety Disorder Y Arthritis Y Acid Reflux (GERD) Y Heart Conditions Y Pacemaker Y Allergies/Hayfever Y Sleep Apnea Y Gynecological HistoryNo gynecological history recorded. Obstetrics History GPAL:G 0 P 0 0 0 0 Past Encounters Encounter ID Performer Location Encounter Start Date Encounter Closed Date Diagnosis/Indication Diagnosis SNOMED-CT Code Diagnosis ICD10 Code Diagnosis Note [id number] ANGELI CANNON MD [facility] [address] [place] [address],[address] [place] [address] 10/29/2024 15:58:18 10/29/2024 19:05:50 Female stress incontinence 27714129 N39.3 Recurrent urinary tract infection 193733619 N39.0 [id number] ANGELI CANNON MD SURGERY SCHEDULE [address] [place] [address] 11/17/2024 11:55:00 11/17/2024 11:56:20 Postoperative pain 530941804 G89.18 [id number] ANGELI CANNON MD [facility] [address] [place] [address] 11/23/2024 16:25:47 11/23/2024 16:42:39 Female stress incontinence 21046415 N39.3 Recurrent urinary tract infection 987941043 N39.0 Health Concerns Section Related Observation LastModified by Organization Detai ls LastModified Time None Recorded Concern Status LastModified by Organization Details LastModified Time None Recorded Payers Encounter Date Sequence Insurance Name Policy Number Policy Alcantara Covered Member ID Alcantara Member ID Guarantor Name 11/23/2024 1 [place] [id number] 3 Alysa W Perezyuniel [id number] Alysa Mancini Notes Date Note Type Note Provider Name and Address Organization Details Recorded Time 11/23/2024 text/html 38-year-old ilana le in the [...] hesitancy. No gross hematuria or dysuria. ANGELI CANNON MD [address] [place] [address], [address], [facility] 12/06/2024 14:19:54 OBGyn Episode No OBEpisode recorded.
[2024-12-25] VITALS (10 sets, daily range): BP systolic 75–141; BP diastolic 39–75; PULSE 60–87; RESP 18–23; TEMP 36.3–37; O2SAT 94–98
[2024-12-25] MEDS: LORazepam 1MG TABLET 1 MG PO (00:03)
[2024-12-25] MEDS: BUSPIRONE 30 MG 30 EACH PO (00:04)
[2024-12-25] MEDS: TRAZODONE 50MG TABLET 50 MG PO (00:04)
[2024-12-25 01:14] LABS: Troponin I < 0.01 ng/ml (0.00-0.034)
[2024-12-25 03:18] LABS: Troponin I < 0.01 ng/ml (0.00-0.034)
[2024-12-25 06:15] LABS: Basophils % 0.6 % (0.1-2.0); Eosinophils # 0.3 K/mm3 (0.0-0.4); Eosinophils % 6.9 % (0.1-12.0); Hematocrit 37.5 % (37.0-47.0); Hemoglobin 12.5 g/dL (12.2-16.2); Lymphocytes # 1.9 K/mm3 (0.7-4.5); Lymphocytes % 39.9 % (10-50); Mean Corpuscular HGB Conc 33.3 g/dL (31.8-35.4); Mean Corpuscular Hemoglobin 27.2 pg (27.0-31.2); Mean Corpuscular Volume 81.7 fl (81-99); Mean Platelet Volume 9.8 fl (7.4-10.4); Monocytes # 0.3 K/mm3 (0.1-1.0); Monocytes % 5.2 % (1.7-9.3); Neutrophils # 2.3 K/mm3 (1.8-7.8); Neutrophils % 47.2 % (37.0-80.0); Nucleated Red Blood Cells # 0 10^3/uL; Nucleated Red Blood Cells % 0 %; Platelet Count 211 K/mm3 (142-424); Red Blood Count 4.59 M/mm3 (4.20-5.40); Red Cell Distribution Width 13.8 % (11.5-17.5); Red Cell Distribution Width-SD 40.9 fL; White Blood Count 4.8 K/mm3 (4.8-10.8)
[2024-12-25 06:20] LABS: Chloride 109 mmol/L (98-107); Potassium 3.7 mmoL/L (3.5-5.1); Sodium 137 mmol/L (136-145)
[2024-12-25 06:23] LABS: Anion Gap 11.7 mEq/L (5-15); Blood Urea Nitrogen 12 mg/dl (7-17); Carbon Dioxide 20 mmol/L (22.0-30.0); Creatinine Clearance Estimated 66 mL/min (50-200); Estimated Glomerular Filt Rate 56 ml/min (>60); GFR (African American) 68 ML/MIN (>60)
[2024-12-25 06:24] LABS: Calcium 8.5 mg/dl (8.4-10.2); Glucose 113 mg/dl (74-100)
--- NOTE | 2024-12-25 08:00 | CA_ITS ---
APPROVED REPORT EXAM: Comprehensive 2D, Doppler, and color-flow Echocardiogram Professor Of Languages: Teresa Richardson, RCS, RVS Ht: 5 ft 3 in Wt: 131lbs BSA: 1.62 BP: 93/59 mmHg Indications: CM-Echo09/2024=43%EF, Pacer, SOA, Lightheadedness, Hypotension, DM, 1 year post 2D Dimensions IVSd 1.13 cm F: 0.6-1.0 LVEF (Visual) 55.90 % PWd 0.85 cm F: 0.6 - 1.0 LA Volume 21.70 mL LVDd 4.38 cm F: 3.9 - 5.3 LA Volume Index 13.40 mL/m2 (M/F) 16-34 LVDs 3.05 cm F: 2.2 - 3.5 Left Atrium 2.97 cm F: 2.7 - 3.8 M-Mode Dimensions RVDd 2.81 cm (0.9-2.6) LA Diam 2.97 cm (1.9-4.0) LVDd 3.98 cm (3.5-5.7) LVDs 3.03 cm (3.5-5.7) IVSd 1.14 cm (0.6-1.1) PWd 1.02 cm (0.6-1.1) EF (Teich) 48.40% EPSs 0.57 cm FS 24.10% EDV (Teich) 69.60 mL TAPSE 1.68 (<1.7) ESV (Teich) 35.90 mL LV Diastology E Decel Time 247 (160-240 msec) E/A Ratio 1.31 MED A' 6.30 cm/s LAT A' 6.50 cm/s Aortic Valve ROEL Index 1.22 cm2/m2 AoV Peak Conrad. 102.0 (50-130 cm/s) AO Peak GR. 4.20 mmHg AO Mean GR. 2.10 (<5 mmHg) AO VTI 18.0 (18-25 cm) ROEL (VTI) 2.01 (2.5-4.5 cm2) Mitral Valve MV A Velocity 47.0 (40-130 cm/s) E/A Ratio 1.31 Tricuspid Valve TR P. Velocity 217.00 cm/s RAP Estimate 10.00 mmHg RVSP 28.80 mmHg Left Ventricle The left ventricle is normal size. The left ventricular systolic function is mildly to moderately reduced. There is normal left ventricular wall thickness. The septum is asynchronous. Systolic function is indeterminate. LVEF is 40%. Right Ventricle The right ventricle is normal size. The right ventricular systolic function is normal. There is a device lead in the right ventricle. Atria The left atrium size is normal. The right atrium size is normal. Aortic Valve The aortic valve opens well. There is no aortic valvular stenosis. No aortic regurgitation is present. Mitral Valve The mitral valve is normal in structure. Trace mitral regurgitation. No evidence of mitral valve stenosis. Tricuspid Valve Tricuspid valve is grossly normal in structure and function. Mild tricuspid regurgitation. RVSP is 20-25 mmHg. Pulmonic Valve The pulmonary valve is normal in structure. Trace pulmonic regurgitation. Great Vessels The aortic root is normal in size. IVC is normal in size and collapses >50% with inspiration. Pericardium There is no pericardial effusion. Other Information Study Quality: Fair Conclusion Mildly to moderately reduced LV systolic function (LVEF 40%). Mild TR. Electronically signed by : Mireya Cunningham MD 12/25/2024 10:05:45
[2024-12-25] MEDS: LORATADINE 10MG TABLET 10 MG PO (08:23)
[2024-12-25] MEDS: BUSPIRONE HCL 10 MG TABLET 30 MG PO (08:23)
[2024-12-25] MEDS: ENOXAPARIN 40MG/0.4ML SYRINGE 40 MG SUBCUT (08:23)
--- NOTE | 2024-12-25 08:47 | PC.NURSE ---
no stairs on unit to access stair use
[2024-12-25 08:53] LABS: Chol/HDL Ratio 6.2 (1-3.5); Cholesterol 222 mg/dl (140-200); HDL Cholesterol 36 mg/dl (40-60); Triglycerides 145 mg/dl (30-150); VLDL Cholesterol 29 mg/dL (0-40)
[2024-12-25 09:11] LABS: Free T4 (Free Thyroxine) 1.03 ng/dl (0.78-2.19)
[2024-12-25 09:25] LABS: Thyroid Stimulating Hormone 1.12 uIU/mL (0.465-4.68)
[2024-12-25 09:44] LABS: Vitamin B12 215 pg/mL (239-931)
[2024-12-25] MEDS: 0.9 % SODIUM CHLORIDE 1000ML 500 ML IV (09:57)
[2024-12-25 09:59] LABS: Iron 85 ug/dL (37-170)
[2024-12-25] MEDS: HYDROCODONE/APAP 5/325 MG TABLET 1 TAB PO (09:59)
--- NOTE | 2024-12-25 10:03 | HMH.PHAINT1 ---
Pharmacy Intervention Comments: HOME MEDICATION LIST VERIFIED USING LIST FROM OUTPATIENT PHARMACY AND CARDIOLOGY OFFICE
[2024-12-25 10:08] LABS: Total Iron Binding Capacity 254 ug/dL (265-497)
--- NOTE | 2024-12-25 10:23 | P.CONCA_ITS ---
History of Present Illness History of Present Illness Consult date: 12/25/24 Requesting physician: Bam Oliver Consult reason: hypotension Chief complaint: hypotension, lightheaded and soa History of present illness: This is a 39-year-old white female with past medical history significant for SVT, Chronic HFrEF with a known ejection fraction less than 35 status post [employer]OR [employer]- D, and normal coronary arteries in 2021 who presented to emergency department with complaints of lightheadedness, shortness of breath and blood pressure running low. Upon presentation to emergency department initial systolic blood pressure was 105 and oxygen saturation was 97 on room air. Initial EKG showed a ventricular paced rhythm at a rate of 74. Labs were as follow: WBC 5.4, hemoglobin 13.5, platelets 263, sodium 135, potassium 3.7, creatinine 1.2, magnesium 2.4, serial troponins negative and a proBNP of 90.8. Chest x-ray was obtained which showed no acute findings. Patient was admitted for acute kidney injury, hypotension and for cardiology evaluation. This morning patient reports ongoing dizziness with position changes. Of note she is orthostatic and has a long history of not being able to tolerate medications due to weakness and low blood pressure. Patient is also a patient at heart failure clinic. [facility] Disclaimer: The information contained in this section may have been updated after the patient was seen, as this information can be updated by other users. Medical History (Updated 12/24/24 @ 23:32 by Juanjose Jamison RN) Gestational diabetes SVT (supraventricular tachycardia) History of pacemaker NYHA class 3 systolic congestive heart failure with reduced left ventricular function NYHA class 2 heart failure with reduced ejection fraction High pulmonary arterial pressure Hypotension Syncope Elevated serum creatinine Creatinine elevation Kidney stone Family history of ischemic heart disease (IHD) Umbilical hernia Surgical History History of renal stent History of oral surgery History of breast biopsy Family History Grandfather Family history of myocardial infarction Sister Family history of cancer Father Family history of cancer Social History (Updated 12/24/24 @ 23:36 by Juanjose Jamison RN) Smoking Status: Current some day smoker alcohol intake: former substance use type: denies use current occupational status: employed Travel in the last 8 weeks: None household members: family housing: house current occupational exposures/hazards: No caffeine: Yes Have you lived/traveled outside US in past 30 days?: No Contact w/someone who lives/traveled outside US past 30 days?: No Exposure to someone with infectious disease in past 14 days?: No Do you have a fever (greater than 100.4 F or 38 C)?: No Have you tested positive for COVID-19: No Exposed to someone with COVID-19 in past 14 days?: No Do you have a sore throat?: No Do you have a cough?: No Do you have any weakness?: No Do you have any diarrhea?: No Are you experiencing any unusual bleeding?: No Do you have any muscle aches/pain?: No Do you have any abdominal pain?: No Are you experiencing loss of taste or smell?: No Review of Systems Review of Systems Review of systems:: pertinent systems reviewed and negative unless documented below Constitutional Constitutional: Reports weakness ENT Ears, Nose, Mouth, and Throat: Reports dizziness *Cardiovascular Cardiovascular: Denies chest pain and Reports dyspnea *Respiratory Respiratory: Reports dyspnea *Neurologic Neurologic: Reports dizziness and Reports weakness Exam Data for Last 24 hours Vital signs and Labs for Last 24 Hours: Temp Pulse Resp BP Pulse Ox O2 Del Method 97.5 F L 63 18 105/73 L 96 Room Air 12/25/24 08:00 12/25/24 08:13 12/25/24 06:00 12/25/24 08:13 12/25/24 08:20 12/25/24 09:00 Laboratory Results - last 24 hr 12/24/24 20:58: VBG pH 7.35, VBG pCO2 39.5, VBG pO2 64.5 H, VBG HCO3 21.2 L, VBG Total CO2 22.4 L, VBG O2 Saturation 92.2 H, VBG Base Excess -4.4 L, VBG Lactic A chaim 1.4 12/24/24 21:00: WBC 5.4, RBC 4.96, Hgb 13.5, Hct 40.9, MCV 82.5, MCH 27.2, MCHC 33.0, RDW 13.9, Plt Count 263, MPV 10.1, Neut % (Auto) 42.0, Lymph % (Auto) 45.1, [place] % (Auto) 5.5, Eos % (Auto) 6.5, Baso % (Auto) 0.7, Neut # (Auto) 2.3, Lymph # (Auto) 2.4, [place] # (Auto) 0.3, Eos # (Auto) 0.4, Baso # (Auto) 0.0, PT 10.8, INR 0.96, D-Dimer 0.49, Sodium 135 L, Potassium 3.7, Chloride 107, Carbon Dioxide 21 L, Anion Gap 10.7, BUN 12, Creatinine 1.20 H, Estimated Creat Clear 64, Estimated GFR 51 L, Est GFR ( Amer) 61, Glucose 82, Calcium 8.6, Magnesium 2.4 H, Total Bilirubin 0.5, AST 19, ALT 12, Alkaline Phosphatase 51, Troponin I < 0.01, NT-Pro-B Natriuret Pep 90.8, Total Protein 6.8, Albumin 3.9, Globulin 2.9, Albumin/Globulin Ratio 1.3, Procalcitonin < 0.030, Serum HCG, Qual Negative 12/25/24 00:26: Troponin I < 0.01 12/25/24 02:47: Troponin I < 0.01 12/25/24 05:22: WBC 4.8, RBC 4.59, Hgb 12.5, Hct 37.5, MCV 81.7, MCH 27.2, MCHC 33.3, RDW 13.8, Plt Count 211, MPV 9.8, Neut % (Auto) 47.2, Lymph % (Auto) 39.9, [place] % (Auto) 5.2, Eos % (Auto) 6.9, Baso % (Auto) 0.6, Neut # (Auto) 2.3, Lymph # (Auto) 1.9, [place] # (Auto) 0.3, Eos # (Auto) 0.3, Baso # (Auto) 0.0, Sodium 137, Potassium 3.7, Chloride 109 H, Carbon Dioxide 20 L, Anion Gap 11.7, BUN 12, Creatinine 1.10 H, Estimated Creat Clear 66, Estimated GFR 56 L, Est GFR ( Amer) 68, Glucose 113 H D, Calcium 8.5 12/25/24 08:05: Iron 85, TIBC 254 L, Iron Saturation 33.91033, Triglycerides 145, Cholesterol 222 H, LDL Cholesterol Direct 147.50 H, VLDL Cholesterol 29, HDL Cholesterol 36 L, Cholesterol/HDL Ratio 6.2 H, Vitamin B12 215 L, TSH 1.12, Free T4 1.03 I & O for Last 24 hours: Intake & Output 12/22/24 12/23/24 12/24/24 12/25/24 23:59 23:59 23:59 23:59 Intake Total 560 / 560 Output Total 0 / 0 Balance 560 / 560 Weight 131 lb 9.6 oz Constitutional Constitutional: no acute distress *Routine Respiratory Exam Respiratory: Present CTA bilaterally and symmetric chest movement *Routine Cardiovascular Exam Cardiovascular: Present RRR, Normal S1 and Normal S2 *Routine Abdominal Exam Abdominal: Present soft and normoactive bowel sounds; Absent tenderness *Routine Extremities Exam Extremities: Present full ROM and normal capillary refill; Absent edema *Routine Skin Exam Skin: Present intact, dry and warm Detailed Neck Exam: Thyroids Thyroid: Absent bruit Meds Home Medications and Allergies Home Medications ?Medication ?Instructions ?Recorded ?Confirmed ?Type loratadine 10 mg tablet (Allergy 10 mg PO DAILY 05/05/21 12/24/24 History Relief (loratadine)) omeprazole 40 mg capsule,delayed 40 mg PO DAILY 05/05/21 12/24/24 History release buspirone 30 mg tablet 30 mg PO BID 09/13/23 12/24/24 History hydroxyzine HCl 50 mg tablet 100 mg PO TIDP PRN Anxiety 09/13/23 12/24/24 Hi story lorazepam 1 mg tablet 1 mg PO TIDP PRN Anxiety 09/13/23 12/24/24 History trazodone 50 mg tablet 50 mg PO HSP PRN Insomnia 09/13/23 12/24/24 History bisoprolol fumarate 5 mg tablet 2.5 mg (1/2 x 5 mg) PO DAILY #15 10/26/24 12/25/24 Rx tabs gabapentin 300 mg capsule 300 mg PO DAILY 10/26/24 12/25/24 History spironolactone 25 mg tablet 12.5 mg (1/2 x 25 mg) PO DAILY 30 10/26/24 12/24/24 Rx days #15 tabs dextromethorphan IR 45 1 tab PO BID 12/24/24 12/24/24 History mg-bupropion ER 105 mg biphasic tablet (Auvelity) empagliflozin 10 mg tablet 10 mg PO DAILY 12/25/24 12/25/24 History (Jardiance) gabapentin 100 mg capsule 100 - 200 mg PO HS 12/25/24 12/25/24 History lisinopril 5 mg tablet 2.5 mg PO DAILY 12/25/24 12/25/24 History New Prescriptions to Start Prescriptions: Allergies Allergy/AdvReac Type Severity Reaction Status Date / Time Penicillins Allergy Intermediate Verified 10/20/24 09:49 metoprolol AdvReac Severe Verified 10/26/24 15:34 Assessment and Plan *Assessment and plan (1) Near syncope: Status: Acute Category: Medical Code(s): R55 - Syncope and collapse (2) Hypotension: Status: Acute Qualifiers: Hypotension type: unspecified hypotension type Qualified Code(s): I95.9 - Hypotension, unspecified Category: Medical Code(s): I95.9 - Hypotension, unspecified (3) AMBERLY (acute kidney injury): Status: Acute Category: Medical Code(s): N17.9 - Acute kidney failure, unspecified (4) Dyspnea: Status: Acute Category: Medical Code(s): R06.00 - Dyspnea, unspecified Plan Near syncope Orthostatic hypotension Acute kidney injury Recommend holding bisoprolol, lisinopril and Aldactone at this time due to orthostatic vitals Recommend gentle hydration but monitor closely for symptoms of volume overload Chronic HFrEF History of SVT Status post [employer]-D No signs of volume overload at this time-no lower extremity edema present, lung morin clear, chest x-ray negative for pleural effusions and BNP 90.8 EF has been as low as 25% in the past. EF today is 40% Beta-flex and diuretics on hold Patient needs to be scheduled with cardiology pacer clinic on January 04 for adjustments to pacemaker due to oversensing. This is not urgent and can be done outpatient on the . Acute kidney injury Creatinine on admission 1.2 trending down to 1.1 with fluids Continue to monitor CV summary 12/25/2024: EF up to 40%. Orthostatic hypotension noted. Agree with holding beta-blockers and diuretics at this time. Agree with gentle hydration. Once normotensivecan slowly restart beta-flex and diuretics. Of note patient is a patient of the heart failure clinic at . She will need an appointment scheduled with the cardiology pacer clinic on January 04 to make adjustments for Oliver R wave oversensing. Not an emergency- can be done on January 04. She will need office follow up on Saturday or Saturday if goes home over the weekend.
[2024-12-25 10:35] LABS: Ferritin 13.8 ng/ml (6.24-137)
[2024-12-25] MEDS: IRON SUCROSE COMPLEX 200 MG in 0.9 % SODIUM CHLORIDE 100 ML 220 MG IV (12:35)
--- NOTE | 2024-12-25 12:48 | EXP.DC.SUM ---
General Admission date:: 12/24/24 HPI HPI HPI: This is a 39-year-old female who has a past medical history significant for SVT, pacemaker placement, systolic dysfunction congestive heart failure, syncope, diabetes, nephrolithiasis, cardiomyopathy, and umbilical hernia who presents with a chief plaint of lightheadedness and difficulty breathing. Due to patient's symptoms, she presented to the emergency room for evaluation. While in the emergency room, patient's systolic blood pressure was in the 80s. Moreover, patient had a slight injury to her kidney. Due to these findings, patient has been admitted for further management. During my evaluation of the patient, patient states she started having this lightheadedness and dyspnea today. She reports that she is also has some associated dizziness. When asked, patient states the lightheadedness and dizziness feels as if a curtain is coming down over her eyes and she is about to pass out. Recently, patient was called by her company who monitors her pacemaker and they informed her that her pacemaker needs adjustment. She states she is also pending an iron infusion. Patient is currently prescribed biosprolol and spironolactone daily. She reports being compliant with these medications. She is currently denying any blurred vision, double vision, headache, upper or lower extremity weakness, PND, orthopnea, swelling to lower extremities, nausea, vomiting, or diarrhea. Additional pertinent vitals obtained include a sodium 135, carbon dioxide 21, creatinine 1.20, GFR 51, and magnesium of 2.4. Hospital Course Hospital Course Hospital Course: Alysa Mancini is a 39-year-old female with a complex cardiac history who presented with dizziness, fatigue, hypotension and was admitted for the same. #Lightheadedness #Orthostatic hypotension #AMBERLY #HFrEF s/p [employer]ENT-D #History of SVT ? Patient has a complex cardiac history with the above. Seems to be related to cardiomyopathy. Normal coronaries in 2021. ? Initial SBP in the 80s with symptoms of lightheadedness. ? Patient is on GDMT bisoprolol 2.5 mg, spironolactone 12.5 mg, Jardiance 10 mg, lisinopril 2.5 mg. ? Cardiology consulted, recommended holding partial GDMT as pressures improved. ? Gradually improved with IV fluid resuscitation, and holding GDMT. ? Repeat ECHO reviewed LVEF 40%, improvement from 30%. ? Restarted home bisoprolol, lisinopril. Hold spironolactone and Jardiance for now until follow-up with cardiology. ? Of note patient is a patient of the heart failure clinic at . She will need an appointment scheduled with the cardiology pacer clinic on January 04 to make adjustments for [place] R wave oversensing. Patient will follow-up with cardiology within 1 week for further evaluation and management. #Anxiety/depression ? Continue home buspirone, gabapentin, hydroxyzine, Ativan. #GERD ? Continue home PPI. Total time spent on discharge: 35 minutes on chart review, counseling, documentation, and direct care with patient. Exam Data for Last 24 hours Vital signs and Labs for Last 24 Hours: Temp Pulse Resp BP Pulse Ox O2 Del Method 98.6 F 74 18 112/68 98 Room Air 12/25/24 12:00 12/25/24 12:02 12/25/24 12:00 12/25/24 12:02 12/25/24 12:00 12/25/24 12:00 Laboratory Results - last 24 hr 12/24/24 20:58: VBG pH 7.35, VBG pCO2 39.5, VBG pO2 64.5 H, VBG HCO3 21.2 L, VBG Total CO2 22.4 L, VBG O2 Saturation 92.2 H, VBG Base Excess -4.4 L, VBG Lactic Acid 1.4 12/24/24 21:00: WBC 5.4, RBC 4.96, Hgb 13.5, Hct 40.9, MCV 82.5, MCH 27.2, MCHC 33.0, RDW 13.9, Plt Count 263, MPV 10.1, Neut % (Auto) 42.0, Lymph % (Auto) 45.1, [place] % (Auto) 5.5, Eos % (Auto) 6.5, Baso % (Auto) 0.7, Neut # (Auto) 2.3, Lymph # (Auto) 2.4, [place] # (Auto) 0.3, Eos # (Auto) 0.4, Baso # (Auto) 0.0, PT 10.8, INR 0.96, D-Dimer 0.49, Sodium 135 L, Potassium 3.7, Chloride 107, Carbon Dioxide 21 L, Anion Gap 10.7, BUN 12, Creatinine 1.20 H, Estimated Creat Clear 64, Estimated GFR 51 L, Est GFR ( Amer) 61, Glucose 82, Calcium 8.6, Magnesium 2.4 H, Total Bilirubin 0.5, AST 19, ALT 12, Alkaline Phosphatase 51, Troponin I < 0.01, NT-Pro-B Natriuret Pep 90.8, Total Protein 6.8, Albumin 3.9, Globulin 2.9, Albumin/Globulin Ratio 1.3, Procalcitonin < 0.030, Serum HCG, Qual Negative 12/25/24 00:26: Troponin I < 0.01 12/25/24 02:47: Troponin I < 0.01 12/25/24 05:22: WBC 4.8, RBC 4.59, Hgb 12.5, Hct 37.5, MCV 81.7, MCH 27.2, MCHC 33.3, RDW 13.8, Plt Count 211, MPV 9.8, Neut % (Auto) 47.2, Lymph % (Auto) 39.9, [place] % (Auto) 5.2, Eos % (Auto) 6.9, Baso % (Auto) 0.6, Neut # (Auto) 2.3, Lymph # (Auto) 1.9, [place] # (Auto) 0.3, Eos # (Auto) 0.3, Baso # (Auto) 0.0, Sodium 137, Potassium 3.7, Chloride 109 H, Carbon Dioxide 20 L, Anion Gap 11.7, BUN 12, Creatinine 1.10 H, Estimated Creat Clear 66, Estimated GFR 56 L, Est GFR ( Amer) 68, Glucose 113 H D, Calcium 8.5 12/25/24 08:05: Iron 85, TIBC 254 L, Iron Saturation 33.12434, Ferritin 13.8, Triglycerides 145, Cholesterol 222 H, LDL Cholesterol Direct 147.50 H, VLDL Cholesterol 29, HDL Cholesterol 36 L, Cholesterol/HDL Ratio 6.2 H, Vitamin B12 215 L, TSH 1.12, Free T4 1.03 I & O for Last 24 hours: Intake & Output 12/22/24 12/23/24 12/24/24 12/25/24 23:59 23:59 23:59 23:59 Intake Total 560 / 560 Output Total 0 / 0 Balance 560 / 560 Weight 59.693 kg Constitutional Constitutional: no acute distress *Routine HEENT Exam Head: Present normocephalic Eye: Present EOMI and PERRL ENT: Present mucous membranes moist *Routine Neck Exam Neck: Present supple; Absent lymphadenopathy *Routine Respiratory Exam Respiratory: Present CTA bilaterally *Routine Cardiovascular Exam Cardiovascular: Present RRR *Routine Abdominal Exam Abdominal: Present soft and normoactive bowel sounds; Absent tenderness *Routine Extremities Exam Extremities: Absent cyanosis, clubbing or edema *Routine Skin Exam Skin: Present warm; Absent rash *Routine Neurological Exam Neurological: Present alert and oriented X3 Results Data Completed and Pending Labs on day of discharge: Labs from last 24 hours 12/25/24 12/25/24 12/25/24 08:05 05:22 02:47 WBC 4.8 RBC 4.59 Hgb 12.5 Hct 37.5 MCV 81.7 MCH 27.2 MCHC 33.3 RDW 13.8 Plt Count 211 MPV 9.8 Neut % (Auto) 47.2 Lymph % (Auto) 39.9 [place] % (Auto) 5.2 Eos % (Auto) 6.9 Baso % (Auto) 0.6 Neut # (Auto) 2.3 Lymph # (Auto) 1.9 [place] # (Auto) 0.3 Eos # (Auto) 0.3 Baso # (Auto) 0.0 PT INR D-Dimer VBG pH VBG pCO2 VBG pO2 VBG HCO3 VBG Total CO2 VBG O2 Saturation VBG Base Excess VBG Lactic Acid Sodium 137 Potassium 3.7 Chloride 109 H Carbon Dioxide 20 L Anion Gap 11.7 BUN 12 Creatinine 1.10 H Estimated Creat Clear 66 Estimated GFR 56 L Est GFR ( Amer) 68 Glucose 113 H D Calcium 8.5 Magnesium Iron 85 TIBC 254 L Iron Saturation 33.28976 Ferritin 13.8 Total Bilirubin AST ALT Alkaline Phosphatase Troponin I < 0.01 NT-Pro-B Natriuret Pep Total Protein Albumin Globulin Albumin/Globulin Ratio Triglycerides 145 Cholesterol 222 H LDL Cholesterol Direct 147.50 H VLDL Cholesterol 29 HDL Cholesterol 36 L Cholesterol/HDL Ratio 6.2 H Vitamin B12 215 L Procalcitonin TSH 1.12 Free T4 1.03 Serum HCG, Qual 12/25/24 12/24/24 12/24/24 00:26 21:00 20:58 WBC 5.4 RBC 4.96 Hgb 13.5 Hct 40.9 MCV 82.5 MCH 27.2 MCHC 33.0 RDW 13.9 Plt Count 263 MPV 10.1 Neut % (Auto) 42.0 Lymph % (Auto) 45.1 [place] % (Auto) 5.5 Eos % (Auto) 6.5 Baso % (Auto) 0.7 Neut # (Auto) 2.3 Lymph # (Auto) 2.4 [place] # (Auto) 0.3 Eos # (Auto) 0.4 Baso # (Auto) 0.0 PT 10.8 INR 0.96 D-Dimer 0.49 VBG pH 7.35 VBG pCO2 39.5 VBG pO2 64.5 H VBG HCO3 21.2 L VBG Total CO2 22.4 L VBG O2 Saturation 92.2 H VBG Base Excess -4.4 L VBG Lactic Acid 1.4 Sodium 135 L Potassium 3.7 Chloride 107 Carbon Dioxide 21 L Anion Gap 10.7 BUN 12 Creatinine 1.20 H Estimated Creat Clear 64 Estimated GFR 51 L Est GFR ( Amer) 61 Glucose 82 Calcium 8.6 Magnesium 2.4 H Iron TIBC Iron Saturation Ferritin Total Bilirubin 0.5 AST 19 ALT 12 Alkaline Phosphatase 51 Troponin I < 0.01 < 0.01 NT-Pro-B Natriuret Pep 90.8 Total Protein 6.8 Albumin 3.9 Globulin 2.9 Albumin/Globulin Ratio 1.3 Triglycerides Cholesterol LDL Cholesterol Direct VLDL Cholesterol HDL Cholesterol Cholesterol/HDL Ratio Vitamin B12 Procalcitonin < 0.030 TSH Free T4 Serum HCG, Qual Negative DS: Diagnosis Discharge Diagnosis (1) Near syncope: Status: Acute Code(s): R55 - Syncope and collapse (2) Hypotension: Status: Acute Code(s): I95.9 - Hypotension, unspecified Qualifiers: Hypotension type: unspecified hypotension type Qualified Code(s): I95.9 - Hypotension, unspecified (3) AMBERLY (acute kidney injury): Status: Acute Code(s): N17.9 - Acute kidney failure, unspecified (4) Dyspnea: Status: Acute Code(s): R06.00 - Dyspnea, unspecified Meds Home Medications and Allergies Home Medications ?Medication ?Instructions ?Recorded ?Confirmed ?Type loratadine 10 mg tablet (Allergy 10 mg PO DAILY 05/05/21 12/24/24 History Relief (loratadine)) omeprazole 40 mg capsule,delayed 40 mg PO DAILY 05/05/21 12/24/24 History release buspirone 30 mg tablet 30 mg PO BID 09/13/23 12/24/24 History hydroxyzine HCl 50 mg tablet 100 mg PO TIDP PRN Anxiety 09/13/23 12/24/24 History lorazepam 1 mg tablet 1 mg PO TIDP PRN Anxiety 09/13/23 12/24/24 History trazodone 50 mg tablet 50 mg PO HSP PRN Insomnia 09/13/23 12/24/24 History bisoprolol fumarate 5 mg tablet 2.5 mg (1/2 x 5 mg) PO DAILY #15 10/26/24 12/25/24 Rx tabs gabapentin 300 mg capsule 300 mg PO DAILY 10/26/24 12/25/24 History spironolactone 25 mg tablet 12.5 mg (1/2 x 25 mg) PO DAILY 30 10/26/24 12/24/24 Rx days #15 tabs dextromethorphan IR 45 1 tab PO BID 12/24/24 12/24/24 History mg-bupropion ER 105 mg biphasic tablet (Auvelity) cyanocobalamin (vitamin B-12) 1,000 mcg PO DAILY 30 days #30 caps 12/25/24 Rx 1,000 mcg capsule empagliflozin 10 mg tablet 10 mg PO DAILY 12/25/24 12/25/24 History (Jardiance) gabapentin 100 mg capsule 100 - 200 mg PO HS 12/25/24 12/25/24 History lisinopril 5 mg tablet 2.5 mg PO DAILY 12/25/24 12/25/24 History New Prescriptions to Start Prescriptions: cyanocobalamin (vitamin B-12) Bam Oliver Allergies Allergy/AdvReac Type Severity Reaction Status Date / Time Penicillins Allergy Intermediate Verified 10/20/24 09:49 metoprolol AdvReac Severe Verified 10/26/24 15:34 Discharge Plan Disposition Patient Disposition: Home, Self-Care Condition: Fair Follow up Plan Follow up with: Dana Grover APRN [Nurse Practitioner] - 12/28/24 10:30 am Sandro Sebastian [Primary Care Provider] - 01/04/25 10:30 am Prescriptions/Medication Reconciliation: New cyanocobalamin (vitamin B-12) 1,000 mcg capsule 1,000 mcg PO DAILY 30 Days Qty: 30 0RF Continued trazodone 50 mg tablet 50 mg PO HSP PRN (Reason: Insomnia) hydroxyzine HCl 50 mg tablet 100 mg PO TIDP PRN (Reason: Anxiety) Patient Comments: TAKE 1 TO 2 TABLETS 3 TIMES EACH DAY NEEDED FOR ANXIETY buspirone 30 mg tablet 30 mg PO BID Patient Comments: TAKE 1 TABLET 2 TIMES EACH DAY lorazepam 1 mg tablet 1 mg PO TIDP PRN (Reason: Anxiety) gabapentin 300 mg capsule 300 mg PO DAILY bisoprolol fumarate 5 mg tablet 2.5 mg PO DAILY Qty: 15 2RF loratadine [Allergy Relief (loratadine)] 10 mg tablet 10 mg PO DAILY omeprazole 40 mg capsule,delayed release(DR/EC) 40 mg PO DAILY Auvelity 45-105 mg tablet, IR and ER, biphasic 1 tab PO BID lisinopril 5 mg tablet 2.5 mg PO DAILY gabapentin 100 mg capsule 100 - 200 mg PO HS Held spironolactone 25 mg tablet 12.5 mg PO DAILY 30 Days Qty: 15 1RF Hold Instructions: Resume on 01/01/25. Hold this medication until you follow-up with cardiology as it can cause low blood pressures. Jardiance 10 mg tablet 10 mg PO DAILY Hold Instructions: Resume on 01/01/25. Hold this medication until you follow-up with cardiology as it can cause low blood pressures. Problem Reconciliation Problems Reviewed?: Yes Patient Discharge Instructions Patient Instructions: DI for Syncope in Adults (Fainting), Orthostatic Hypotension, How to Manage Shortness of Breath Print Language: Upper Sorbian Providers Primary Care Provider: Sadnro Sebastian Admit Provider: Bam Oliver Attending Provider: Bam Oliver
[2024-12-25] MEDS: VITAMIN B-12 1,000 MCG 1ML VIAL 1000 MCG IM (13:35)
[2024-12-25] MEDS: LACTATED RINGERS 1000ML 1,000 ML 50 ML IV (14:07)
--- NOTE | 2024-12-25 14:33 | PC.NURSE ---
All patient care and documentation completed by Kym MENDOZA was completed under my direct supervision. . Vickie Nicole RN
[2024-12-26 15:14] LABS: Folate, RBC 749 ng/mL (>498); Hematocrit 41.1 % (34.0-46.6)
[2024-12-27 16:16] LABS: Cortisol,AM 9.6 ug/dL (6.2-19.4)
--- NOTE | 2024-12-29 10:18 | SW/DCPLANNER ---
Phoned patient x2. Left messages with name and call back number. Miquel Lockwood
== END 2024-12-25 15:18 | disposition home or self-care (01) ==
LOC: ER 21:59 → 2ND 22:39
PROVIDERS: Nurse Practitioner Family; Physician Assistant; Admitting Provider Student in an Organized Health Care Education/Training Program; Emergency Provider Emergency Medicine; PCP Family Medicine; Visit Provider Student in an Organized Health Care Education/Training Program
DX: I95.1 Orthostatic hypotension (principal); I50.22 Chronic systolic (congestive) heart failure; N17.9 Acute kidney failure, unspecified; R42 Dizziness and giddiness; R53.83 Other fatigue; I42.9 Cardiomyopathy, unspecified; K42.9 Umbilical hernia without obstruction or gangrene; F41.9 Anxiety disorder, unspecified; F32.A Depression, unspecified; K21.9 Gastro-esophageal reflux disease without esophagitis; R06.00 Dyspnea, unspecified; E11.8 Type 2 diabetes mellitus with unspecified complications; Z95.810 Presence of automatic (implantable) cardiac defibrillator; Z87.442 Personal history of urinary calculi; Z96.89 Presence of other specified functional implants; Z88.0 Allergy status to penicillin; Z88.8 Allergy status to other drugs, medicaments and biological substances; Z82.49 Family history of ischemic heart disease and other diseases of the circulatory system; Z79.85 Long-term (current) use of injectable non-insulin antidiabetic drugs; Z79.899 Other long term (current) drug therapy; Z80.9 Family history of malignant neoplasm, unspecified; F17.210 Nicotine dependence, cigarettes, uncomplicated
CPT/HCPCS: 36415; 71046; 80048; 80053; 80061; 82533; 82607; 82728; 82747; 82803; 83540; 83550; 83735; 83880; 84145; 84439; 84443; 84484; 84703; 85014; 85025; 85378; 85610; 87040; 93005; 93306; 99291; G0378; J1650; J1756; J3420; J7030; J7120

== ENCOUNTER 2025-01-21 11:41 | Emergency (ER) | payer BC, SELFPAY ==
[2025-01-21] VITALS (11 sets, daily range): BP systolic 105–131; BP diastolic 66–86; PULSE 66–87; RESP 16; TEMP 36.6–36.7; O2SAT 95–100; BMI 24.3
--- OUTSIDE RECORDS SUMMARY | 2025-01-21 12:02 | XMS_ITS | Continuity of Care Document ---
Author Organization [facility] Jamaal méndez [facility] Address [address] [place] [address] [place] [address] Care Team Providers Care Site Worker Name Role Phone ADITI SALOMON Primary Care Provider Assessment Encounter Date Assessment Date Assessment LastModified by Organization Details LastModified Time 12/17/2024 12/17/2024 She is not having symptoms of stress incontinence at this time. She has occasional urgency. Hesitancy has improved. [email or web address] Not available 12/27/2024 08:17:15 Plan of Treatment Reminders Order Date Submit Date Provider Last Modified By Organization Details Last Modified Time Details Appointments RECHECK 2024 04:15P Jo-Ann CANNON MD Not available Not available Not available Lab urinalysi s panel, auto 2024 [email or web address] [place] [address] With [facility], [address] [place] [address] Dr Monte, [place], [address], 12/18/2024 09:27:10 culture, urine 2024 025 [facility], [address] [place] [address], [address], 12/19/2024 10:41:47 Referral None recorded. Procedures None recorded. Surgeries None recorded. Imaging None recorded. Medication Orders None recorded. Patient TargetsNo targets recorded. Patient InstructionsNo instructions recorded. Reason for Referral None Reported. Results Created Date Observation Date Name Description Value Unit Range Abnormal Flag Note LastModifiedBy Organization Detail LastModifiedTime 12/18/19 25 12/17/2024 urina lysis panel , auto Unknown Analyte Clean Catch Not Available [facility] With [address] [place], [place], [address], 12/17/2024 16:54:04 12/18/19 25 12/17/2024 urina lysis panel , auto Unknown Analyte Yellow Not Available [facility] With [address] [place], [address], 12/17/2024 16:54:04 12/18/19 25 12/17/2024 urina lysis panel , auto Unknown Analyte Clear Not Available [facility] With [address] [place], [address], 12/17/2024 16:54:04 12/18/19 25 12/17/2024 urina lysis panel , auto Unknown Analyte 1.025 Not Available [facility] With [address] [place], [address], 12/17/2024 16:54:04 12/18/19 25 12/17/2024 urina lysis panel , auto Unknown Analyte 1.003 - 1.030 Not Available [facility] With [address] [place], [address], 12/17/2024 16:54:04 12/18/19 25 12/17/2024 urina lysis panel , auto Unknown Analyte 5.0 Not Available [facility] With [address] [place], [address], 12/17/2024 16:54:04 12/18/19 25 12/17/2024 urina lysis panel , auto Unknown Analyte 5.0 - 8.0 Not Available [facility] With [address] [place], [address], 12/17/2024 16:54:04 12/18/19 25 12/17/2024 urina lysis panel , auto Unknown Analyte 75 Yuli/uL Not Available [facility] With [address] Monte, [place], [address], 12/17/2024 16:54:04 12/18/19 25 12/17/2024 urina lysis panel , auto Unknown Analyte Negati ve Not Available [facility] With [address] [place], [address], 12/17/2024 16:54:04 12/18/19 25 12/17/2024 urina lysis panel , auto Unknown Analyte Negati ve Not Available [facility] With [address] [place], [address], 12/17/2024 16:54:04 12/18/19 25 12/17/2024 urina lysis panel , auto Unknown Analyte Negati ve Not Available [facility] With [address] [place], [address], 12/17/2024 16:54:04 12/18/19 25 12/17/2024 urina lysis panel , auto Unknown Analyte Negati ve Not Available [facility] With [address] [place], [address], 12/17/2024 16:54:04 12/18/19 25 12/17/2024 urina lysis panel , auto Unknown Analyte Negati ve Not Available [facility] With [address] [place], [address], 12/17/2024 16:54:04 12/18/19 25 12/17/2024 urina lysis panel , auto Unknown Analyte >1000 mg/dL Not Available [facility] With [address] Monte, [place], [address], 12/17/2024 16:54:04 12/18/19 25 12/17/2024 urina lysis panel , auto Unknown Analyte Normal Not Available [facility] With [address] [place], [address], 12/17/2024 16:54:04 12/18/19 25 12/17/2024 urina lysis panel , auto Unknown Analyte Negati ve Not Available [facility] With [address] [place], [address], 12/17/2024 16:54:04 12/18/19 25 12/17/2024 urina lysis panel , auto Unknown Analyte Negati ve Not Available [facility] With [address] [place], [address], 12/17/2024 16:54:04 12/18/19 25 12/17/2024 urina lysis panel , auto Unknown Analyte Normal Not Available [facility] With [address] [place], [address], 12/17/2024 16:54:04 12/18/19 25 12/17/2024 urina lysis panel , auto Unknown Analyte Normal Not Available [facility] With [address] [place], [address], 12/17/2024 16:54:04 12/18/19 25 12/17/2024 urina lysis panel , auto Unknown Analyte 1 mg/dL Not Available [facility] With [address] [place], [address], 12/17/2024 16:54:04 12/18/19 25 12/17/2024 urina lysis panel , auto Unknown Analyte Negati ve Not Available [facility] With [address] [place], [place], [address], 12/17/2024 16:54:04 12/18/19 25 12/17/2024 urina lysis panel , auto Unknown Analyte Negati ve Not Available [facility] With [address] [place], [address], 12/17/2024 16:54:04 12/18/19 25 12/17/2024 urina lysis panel , auto Unknown Analyte Negati ve Not Available [facility] With [address] [place], [address], 12/17/2024 16:54:04 Result Notes None recorded. Problems No Known Problems Procedures Surgical History Date Name Laterality Status Provider Name and Address Organization Details Recorded Time Post Void Residual; Ultrasound completed Oksana Porras [facility] 11/23/2024 16:43:00 Imaging Results None recorded. Procedure Notes None recorded. Medical Equipment None Reported. Allergies Allergen ID Allergen Name Allergen Category Reaction Reaction Severity Criticality Documentation Date Start Date Code Code System Note Provider Name and Address Organization Details Recorded Time 552062 Product containin g penicilli n (product) medicatio n Not available Not available Not available 02/18/2018 24424 8001 SNOMED Petra cisneros [facility] 8 15:24:44 Medications Name Sig Start [...] Updated DateTime 12/17/2024 160.02 cm 24.6 kg/m2 29125.34 g Blade Muñoz [facility] 12/17/2024 16:53:18 Social History Question Answer Notes LastModified by Organizat ion Details LastModified Time Tobacco Smoking Status Former Smoker Blade Muñoz [facility] 10/29/2024 17:00:54 What Is Your Level Of Alcohol Consumption? Occasional [email or web address] Information not available 02/18/2018 Marital Status Informatio n not available 02/18/2018 What Was The Date Of Your Most Recent Tobacco Screening? 12/17/2024 [email or web address] Information not available 12/17/2024 Has Tobacco Cessation Counseling Been Provided? Yes [email or web address] Information not available 02/18/2018 On What Date Was Tobacco Cessation Counseling Provided? 02/26/2018 [email or web address] Information not available 02/26/2018 Sex: Unknown Functional Status None recorded. Mental Status None recorded. Family History Relationship Description Onset Age of this Age Resolved Age Notes LastModified by Organization Details LastModified Time Mother Family history of malignant neoplasm Not available 02/18 15:26:02 Maternal Grandmother Family history of malignant neoplasm [email or web address] Not available 02/18 15:26:10 Unspecified Relation Diabetes [...] SNOMED-CT Code Diagnosis ICD10 Code Diagnosis Note [id number] ANGELI CANNON MD SURGERY SCHEDULE [address] [place] [address] 11/17/2024 11:55:00 11/17/2024 11:56:20 Postoperative pain 098457558 G89.18 [id number] ANGELI CANNON MD [facility] [address] [place] [address] 11/23/2024 16:25:47 11/23/2024 16:42:39 Female stress incontinence 58779126 N39.3 Recurrent urinary tract infection 256296913 N39.0 [id number] ANGELI CANNON MD [facility] [address] [facility],[place] [address] 12/17/2024 16:37:18 12/18/2024 14:38:12 Urinary tract infectious disease 62370675 N39.0 Female str ess incontinence 02456479 N39.3 Health Concerns Section Related Observation LastModified by Organization Detai ls LastModified Time None Recorded Concern Status LastModified by Organization Details LastModified Time None Recorded Payers Encounter Date Sequence Insurance Name Policy Number Policy Alcantara Covered Member ID Alcantara Member ID Guarantor Name 12/17/2024 1 [place] [id number] 3 Alysa Mancini [id number] Alysa Mancini Notes Date Note Type Note Provider Name and Address Organization Details Recorded Time 12/17/2024 text/html 38-year-old ilana mallory in the office for follow-up evaluation and for discussion of female stress urinary incontinence status post sling placement. She has 5 pregnancies with 4 births. She denies gross hematuria or dysuria unless she has UTI. She reports history of recurrent UTIs. She has history of urolithiasis. She has history of pacemaker. She has been having frequent hesitancy. She has not had any leakage since placement of TOT sling. Patient with symptoms of urinary hesitancy, improved. No gross hematuria or dysuria. ANGELI CANNON MD [address] [place], [address], [facility] 12/27/2024 08:17:31 OBGyn Episode No OBEpisode recorded.
--- OUTSIDE RECORDS SUMMARY | 2025-01-21 12:02 | XMS_ITS | Continuity of Care Document ---
Author Organization [facility] Jamaal méndez [facility] Address [address] [place] [address] [address] [place] [address] Care Team Providers Care Salesperson Men'S Hats Name Role Phone ADITI SALOMON Primary Care Provider [phone] Assessment Encounter Date Assessment Date Assessment LastModified [...] to the incomplete emptying. Follow-up with [facility]. [email or web address] Not available 12/06/2024 14:19:39 Plan of Treatment Reminders Order Date Submit Date Provider Last Modified By Organization Details Last Modified Time Details Appointments RECHECK 2024 04:15P Jo-Ann CANNON MD Not available Not available Not available Lab urinalysi s panel, auto 2024 025 [email or web address] [facility] With [facility], [address] [place] [address], [address], [place], [address], 11/25/2024 13:17:40 Referral None recorded. Procedures None recorded. Surgeries None recorded. Imaging None recorded. Medication Orders None recorded. Patient TargetsNo targets recorded. Patient InstructionsNo instructions recorded. Reason for Referral None Reported. Results Created Date Observation Date Name Description Value Unit Range Abnormal Flag Note LastModifiedBy Organization Detail LastModifiedTime 11/24/19 25 11/23/2024 urina lysis panel , auto Unknown Analyte Clean Catch Not Available [facility] [address], [place], [address], 11/23/2024 16:32:23 11/24/19 25 11/23/2024 urina lysis panel , auto Unknown Analyte Yellow Not Available [facility] [address] [place] [address] [address], [place], [address], 11/23/2024 16:32:23 11/24/19 25 11/23/2024 urina lysis panel , auto Unknown Analyte Slight ly Cloudy Not Available [facility] [address], [place], [address], 11/23/2024 16:32:23 11/24/19 25 11/23/2024 urina lysis panel , auto Unknown Analyte 1.015 Not Available [facility] [address] [place] [address] [address], [place], [address], 11/23/2024 16:32:23 11/24/19 25 11/23/2024 urina lysis panel , auto Unknown Analyte 1.003 - 1.030 Not Available [facility] [address] [place] [address] [address], [place], [address], 11/23/2024 16:32:23 11/24/19 25 11/23/2024 urina lysis panel , auto Unknown Analyte 5.0 Not Available [facility] [address] [place] [address] [address], [place], [address], 11/23/2024 16:32:23 11/24/19 25 11/23/2024 urina lysis panel , auto Unknown Analyte 5.0 - 8.0 Not Available [facility] [address], [place], [address], 11/23/2024 16:32:23 11/24/19 25 11/23/2024 urina lysis panel , auto Unknown Analyte Negati ve Not Available [facility] [address], [place], [address], 11/23/2024 16:32:23 11/24/19 25 11/23/2024 urina lysis panel , auto Unknown Analyte Negati ve Not Available [facility] [address], [place], [address], 11/23/2024 16:32:23 11/24/19 25 11/23/2024 urina lysis panel , auto Unknown Analyte Negati ve Not Available [facility] [address], [place], [address], 11/23/2024 16:32:23 11/24/19 25 11/23/2024 urina lysis panel , auto Unknown Analyte Negati ve Not Available [facility] [address], [place], [address], 11/23/2024 16:32:23 11/24/19 25 11/23/2024 urina lysis panel , auto Unknown Analyte Negati ve Not Available [facility] [address], [place], [address], 11/23/2024 16:32:23 11/24/19 25 11/23/2024 urina lysis panel , auto Unknown Analyte Negati ve Not Available [facility] [address], [place], [address], 11/23/2024 16:32:23 11/24/19 25 11/23/2024 urina lysis panel , auto Unknown Analyte >1000 mg/dL Not Available [facility] [address], [place], [address], 11/23/2024 16:32:23 11/24/19 25 11/23/2024 urina lysis panel , auto Unknown Analyte Normal Not Available [facility] [address], [place], [address], 11/23/2024 16:32:23 11/24/19 25 11/23/2024 urina lysis panel , auto Unknown Analyte Negati ve Not Available [facility] [address], [place], [address], 11/23/2024 16:32:23 11/24/19 25 11/23/2024 urina lysis panel , auto Unknown Analyte Negati ve Not Available [facility] With [address], [place], [address], 11/23/2024 16:32:23 11/24/19 25 11/23/2024 urina lysis panel , auto Unknown Analyte Normal Not Available [facility] With [address], [place], [address], 11/23/2024 16:32:23 11/24/19 25 11/23/2024 urina lysis panel , auto Unknown Analyte Normal Not Available [facility] With [address], [place], [address], 11/23/2024 16:32:23 11/24/19 25 11/23/2024 urina lysis panel , auto Unknown Analyte Negati ve Not Available [facility] [address] [place] [address] [address], [place], [address], 11/23/2024 16:32:23 11/24/19 25 11/23/2024 urina lysis panel , auto Unknown Analyte Negati ve Not Available [facility] [address] [facility] [address], [place], [address], 11/23/2024 16:32:23 11/24/19 25 11/23/2024 urina lysis panel , auto Unknown Analyte 50 Rocael/uL Not Available [facility] [address] [facility] [address], [place], [address], 11/23/2024 16:32:23 11/24/19 25 11/23/2024 urina lysis panel , auto Unknown Analyte Negati ve Not Available [facility] With [address], [place], [address], 11/23/2024 16:32:23 Result Notes None recorded. Problems No Known Problems Procedures Surgical History Date Name Laterality Status Provider Name and Address Organization Details Recorded Time Post Void Residual; Ultrasound completed Oksana Porras [facility] 11/23/2024 16:43:00 Imaging Results None recorded. Procedure Notes None recorded. Medical Equipment None Reported. Allergies Allergen ID Allergen Name Allergen Category Reaction Reaction Severity Criticality Documentation Date Start Date Code Code System Note Provider Name and Address Organization Details Recorded Time 449075 Product containin g penicilli n (product) medicatio n Not available Not available Not available 02/18/2018 82864 8001 SNOMED Petra Garzon [facility] 15:24:44 Medications Name Sig Start [...] Updated DateTime 11/23/2024 160.02 cm 24.6 kg/m2 30263.34 g Oksana Vern [facility] 11/23/2024 16:32:09 Social History Question Answer Notes LastModified by Organizat ion Details LastModified Time Tobacco Smoking Status Former Smoker Blade Muñoz [facility] 10/29/2024 17:00:54 What Is Your Level Of Alcohol Consumption? Occasional [email or web address] Information not available 02/18/2018 Marital Status [email or web address] Informatio n not available 02/18/2018 What Was The Date Of Your Most Recent Tobacco Screening? 12/17/2024 [email or web address] Information not available 12/17/2024 Has Tobacco Cessation Counseling Been Provided? Yes Information not available 02/18/2018 On What Date Was Tobacco Cessation Counseling Provided? 02/26/2018 [email or web address] Information not available 02/26/2018 Sex: Unknown Functional Status None recorded. Mental Status None recorded. Family History Relationship Description Onset Age of this Age Resolved Age Notes LastModified by Organization Details LastModified Time Mother Family history of malignant neoplasm [email or web address] Not available 02/18 15:26:02 Maternal Grandmother Family history of malignant neoplasm [email or web address] Not available 02/18 15:26:10 Unspecified Relation Diabetes [...] SNOMED-CT Code Diagnosis ICD10 Code Diagnosis Note [id number] ANGELI CANNON MD [facility] [address] [place] [address],[place] [address] 10/29/2024 15:58:18 10/29/2024 19:05:50 Female stress incontinence 66147989 N39.3 Recurrent urinary tract infection 368858338 N39.0 [id number] ANGELI CANNON MD SURGERY SCHEDULE [address] [place] [address] 11/17/2024 11:55:00 11/17/2024 11:56:20 Postoperative pain 277956388 G89.18 [id number] ANGELI CANNON MD [facility] [address] [place] [address] 11/23/2024 16:25:47 11/23/2024 16:42:39 Female stress incontinence 32172274 N39.3 Recurrent urinary tract infection 737674928 N39.0 Health Concerns Section Related Observation LastModified by Organization Detai ls LastModified Time None Recorded Concern Status LastModified by Organization Details LastModified Time None Recorded Payers Encounter Date Sequence Insurance Name Policy Number Policy Alcantara Covered Member ID Alcantara Member ID Guarantor Name 11/23/2024 1 [place] [id number] 3 Alysa W Perezyuniel [id number] Alysa Mancini Notes Date Note Type [...] gross hematuria or dysuria. ANGELI CANNON MD [address] [place] [address], [address], [facility] 12/06/2024 14:19:54 OBGyn Episode No OBEpisode recorded.
--- OUTSIDE RECORDS SUMMARY | 2025-01-21 12:03 | XMS_ITS | Data Portability ---
Author Organization LESIA GILBERTO [facility] [place] CLOSED Address [address] [facility] [address] [place] [address] Care Team Providers Care Social Welfare Research Worker Name Role Phone ADITI SALOMON Primary Care Provider [phone] Assessment Encounter Date Assessment Date Assessment LastModified [...] erosion into the vagina, urethra, bladder, etc. [email or web address] Not available 11/08/2024 18:42:47 11/17/2024 11/17/2024 DATE OF PROCEDURE: 11/18/2024 PROCEDURE PERFORMED: Trans-obturator urethral sling, Cystoscopy SURGEON: Angeli Cannon M.D. ANESTHESIA: General BLOOD LOSS: 20 mL [...] followup and strict limitations for sling placement. [email or web address] Not available 11/17/2024 14:21:03 11/23/2024 11/23/2024 Continue [...] to the incomplete emptying. Follow-up with [facility]. [email or web address] Not available 12/06/2024 14:19:39 12/17/2024 12/17/2024 She is not having symptoms of stress incontinence at this time. She has occasional urgency. Hesitancy has improved. [email or web address] Not available 12/27/2024 08:17:15 Plan of Treatment Reminders Order Date Submit Date Provider Last Modified By Organization Details Last Modified Time Details Appointments RECHECK 2024 04:15P Jo-Ann CANNON MD Not available Not available Not available Lab urinalysi s panel, auto 2024 025 4 [facility] Extended Services With [address], [place], [address], 12/18/2024 09:27:10 culture, urine 2024 025 [facility], [address] [place] [address], [address], 12/19/2024 10:41:47 urinalysi s panel, auto 2024 [email or web address] [place] [address] [facility], [address], [place], [address], 11/25/2024 13:17:40 urinalysi s panel, auto [address] [place] [address] Extended Services With [address], [place], [address], 11/08/2024 18:42:55 urinalysi s, dipstick, auto 2017 [email or web address], [address], [address], [place], [address], 02/26/2018 14:24:28 Referral None recorded. Procedures None recorded. Surgeries sling operation for stress incontine nce (SURG) 2024 025 [email or web address] [facility], [address] [facility], [address], [place], [address], 12/15/2024 11:47:38 Imaging None recorded. Medication Orders hydrocodo ne 7.5 mg-acetam inophen 325 mg tablet 2024 025 [facility], [address] [place], [address], 11/17/2024 14:25:05 Patient TargetsNo targets recorded. Patient Instructions Encounter Date Encounter Id Patient Instructions Last Modified By Organization Details Last Modified Time 02/26/2018 [id number] kidney stone: care instructions [facility] Not available 02/26/2018 14:24:28 learning about diet for kidney stone [facility] available 02/26/2018 14:24:28 10/29/2024 [id number] learning about healthy weight [email or web address] Not available 11/08/2024 18:42:55 Reason for Referral None Reported. Results Created Date Observation Date Name Description Value Unit Range Abnormal Flag Note LastModifiedBy Organization Detail LastModifiedTime 02/27/20 18 02/26/2018 urina lysis , dipst ick, auto Unknown Analyte Red Not Available [facility] [address] [address], [place], [address], 02/26/2018 14:20:57 02/27/20 18 02/26/2018 urina lysis , dipst ick, auto Unknown Analyte Bloody Not Available [facility] [address], [place], [address], 02/26/2018 14:20:57 02/27/20 18 02/26/2018 urina lysis , dipst ick, auto Unknown Analyte 1.010 Not Available [facility] [address], [place], [address], 02/26/2018 14:20:57 02/27/20 18 02/26/2018 urina lysis , dipst ick, auto Unknown Analyte 6.5 Not Available [facility] [address], [place], [address], 02/26/2018 14:20:57 02/27/20 18 02/26/2018 urina lysis , dipst ick, auto Unknown Analyte 500 Yuli/ul (++) Not Available [facility] [address], [place], [address], 02/26/2018 14:20:57 02/27/20 18 02/26/2018 urina lysis , dipst ick, auto Unknown Analyte Negati ve Not Available [facility] [address], [place], [address], 02/26/2018 14:20:57 02/27/20 18 02/26/2018 urina lysis , dipst ick, auto Unknown Analyte 500 mg/dl (+++) Not Available [facility] [address], [place], [address], 02/26/2018 14:20:57 02/27/20 18 02/26/2018 urina lysis , dipst ick, auto Unknown Analyte Normal Not Available [facility] [address], [place], [address], 02/26/2018 14:20:57 02/27/20 18 02/26/2018 urina lysis , dipst ick, auto Unknown Analyte Negati ve Not Available [facility] [address] [facility] [address], [place], [address], 02/26/2018 14:20:57 02/27/20 18 02/26/2018 urina lysis , dipst ick, auto Unknown Analyte Normal Not Available [facility] [address] [facility] [address], [place], [address], 02/26/2018 14:20:57 02/27/20 18 02/26/2018 urina lysis , dipst ick, auto Unknown Analyte 1 mg/dl (+) Not Available [facility] [address] [facility] [address], [place], [address], 02/26/2018 14:20:57 02/27/20 18 02/26/2018 urina lysis , dipst ick, auto Unknown Analyte 250 Rocael/ul Not Available [facility] [address] [facility] [address], [place], [address], 02/26/2018 14:20:57 02/27/20 18 02/26/2018 urina lysis , dipst ick, auto Unknown Analyte Clean Catch Not Available [facility] [address] [facility] [address], [place], [address], 02/26/2018 14:20:57 02/27/20 18 02/26/2018 urina lysis , dipst ick, auto Unknown Analyte Automa anju Not Available [facility] [address] [facility] [address], [place], [address], 02/26/2018 14:20:57 02/19/20 18 02/18/2018 urina lysis , dipst ick, auto Unknown Analyte Straw Not Available [facility] [address] [place] [address] [address], [place], [address], 02/18/2018 15:27:53 02/19/20 18 02/18/2018 urina lysis , dipst ick, auto Unknown Analyte Clear Not Available [facility] [address], [place], [address], 02/18/2018 15:27:53 02/19/20 18 02/18/2018 urina lysis , dipst ick, auto Unknown Analyte 1.010 Not Available [facility] [address] [place] [address] [address], [place], [address], 02/18/2018 15:27:53 02/19/20 18 02/18/2018 urina lysis , dipst ick, auto Unknown Analyte 8.0 Not Available [facility] [address], [place], [address], 02/18/2018 15:27:53 02/19/20 18 02/18/2018 urina lysis , dipst ick, auto Unknown Analyte 25 Yuli/ul Trace Not Available [facility] [address], [place], [address], 02/18/2018 15:27:53 02/19/20 18 02/18/2018 urina lysis , dipst ick, auto Unknown Analyte Negati ve Not Available [facility] [address], [place], [address], 02/18/2018 15:27:53 02/19/20 18 02/18/2018 urina lysis , dipst ick, auto Unknown Analyte Negtiv e Not Available [facility] [address], [place], [address], 02/18/2018 15:27:53 02/19/20 18 02/18/2018 urina lysis , dipst ick, auto Unknown Analyte Normal Not Available [facility] [address], [place], [address], 02/18/2018 15:27:53 02/19/20 18 02/18/2018 urina lysis , dipst ick, auto Unknown Analyte Negati ve Not Available [facility] [address], [place], [address], 02/18/2018 15:27:53 02/19/20 18 02/18/2018 urina lysis , dipst ick, auto Unknown Analyte 1 mg/dl Not Available [facility] [address] [place] [address] [address], [place], [address], 02/18/2018 15:27:53 02/19/20 18 02/18/2018 urina lysis , dipst ick, auto Unknown Analyte Negati ve Not Available [facility] [address] [place] [address] [address], [place], [address], 02/18/2018 15:27:53 02/19/20 18 02/18/2018 urina lysis , dipst ick, auto Unknown Analyte Negati ve Not Available [facility] [address], [place], [address], 02/18/2018 15:27:53 02/19/20 18 02/18/2018 urina lysis , dipst ick, auto Unknown Analyte Clean Catch Not Available [facility] [address], [place], [address], 02/18/2018 15:27:53 02/19/20 18 02/18/2018 urina lysis , dipst ick, auto Unknown Analyte Automa anju Not Available [facility] [address], [place], [address], 02/18/2018 15:27:53 02/19/20 18 02/18/2018 beta- HCG, [...] 18 8099 - 58,17 6 Not Available [facility] [address] [place] [address], [address], 02/18/2018 17:54:20 10/29/19 25 10/29/2024 urina lysis panel , auto Unknown Analyte Clean Catch Not Available [facility] With [address], [place], [address], 10/29/2024 17:03:38 10/29/19 25 10/29/2024 urina lysis panel , auto Unknown Analyte Straw Not Available [facility] Extended Services With [address], [place], [address], 10/29/2024 17:03:38 10/29/19 25 10/29/2024 urina lysis panel , auto Unknown Analyte Slight ly Hazy Not Available [facility] Extended Services With [address] [place], [address], 10/29/2024 17:03:38 10/29/19 25 10/29/2024 urina lysis panel , auto Unknown Analyte 1.025 Not Available [facility] Extended Services With [address] [place], [address], 10/29/2024 17:03:38 10/29/19 25 10/29/2024 urina lysis panel , auto Unknown Analyte 1.003- 1.035 Not Available [facility] Extended Services With [address] [place], [address], 10/29/2024 17:03:38 10/29/19 25 10/29/2024 urina lysis panel , auto Unknown Analyte 5.0 Not Available [facility] Extended Services With [address] [place], [address], 10/29/2024 17:03:38 10/29/19 25 10/29/2024 urina lysis panel , auto Unknown Analyte 5.0-8. 0 Not Available [facility] Extended [facility] With [address] [place], [address], 10/29/2024 17:03:38 10/29/19 25 10/29/2024 urina lysis panel , auto Unknown Analyte Negati ve Not Available [facility] Extended Services With [address] [place], [address], 10/29/2024 17:03:38 10/29/19 25 10/29/2024 urina lysis panel , auto Unknown Analyte Negati ve Not Available [facility] With [address], [place], [address], 10/29/2024 17:03:38 10/29/19 25 10/29/2024 urina lysis panel , auto Unknown Analyte Negati ve Not Available [facility] Extended Services With [address], [place], [address], 10/29/2024 17:03:38 10/29/19 25 10/29/2024 urina lysis panel , auto Unknown Analyte Negati ve Not Available [facility] Extended Services With [address] [place], [address], 10/29/2024 17:03:38 10/29/19 25 10/29/2024 urina lysis panel , auto Unknown Analyte 30 mg/dl (+) Not Available [facility] Extended Services With [address], [place], [address], 10/29/2024 17:03:38 10/29/19 25 10/29/2024 urina lysis panel , auto Unknown Analyte Negati ve Not Available [facility] Extended Services With [address] [place], [address], 10/29/2024 17:03:38 10/29/19 25 10/29/2024 urina lysis panel , auto Unknown Analyte Normal Not Available [facility] Extended Services With [address], [place], [address], 10/29/2024 17:03:38 10/29/19 25 10/29/2024 urina lysis panel , auto Unknown Analyte Normal Not Available [facility] Extended Services With [address], [place], [phone], 10/29/2024 17:03:38 10/29/19 25 10/29/2024 urina lysis panel , auto Unknown Analyte Negati ve Not Available [facility] Extended Services With [address] [place], [address], 10/29/2024 17:03:38 10/29/19 25 10/29/2024 urina lysis panel , auto Unknown Analyte Negati ve Not Available [facility] Extended Services With [address] [place], [address], 10/29/2024 17:03:38 10/29/19 25 10/29/2024 urina lysis panel , auto Unknown Analyte 1 mg/dl Not Available [facility] Extended Services With [address] [place], [address], 10/29/2024 17:03:38 10/29/19 25 10/29/2024 urina lysis panel , auto Unknown Analyte Normal 1 mg/dl Not Available [facility] Extended Services With [address] [place], [address], 10/29/2024 17:03:38 10/29/19 25 10/29/2024 urina lysis panel , auto Unknown Analyte 1 mg/dl (+) Not Available [facility] Extended Services With [address] [place], [address], 10/29/2024 17:03:38 10/29/19 25 10/29/2024 urina lysis panel , auto Unknown Analyte Negati ve Not Available [facility] Extended Services With [address] [place], [address], 10/29/2024 17:03:38 10/29/19 25 10/29/2024 urina lysis panel , auto Unknown Analyte Negati ve Not Available [facility] [place] Extended Services With [address], [place], [address], 10/29/2024 17:03:38 10/29/19 25 10/29/2024 urina lysis panel , auto Unknown Analyte Negati ve Not Available [facility] [place] Extended Services With [address], [place], [address], 10/29/2024 17:03:38 11/18/19 25 11/17/2024 urina lysis panel , auto Unknown Analyte Clean Catch Not Available [facility] [address] [place] [address], [address], 11/17/2024 12:39:07 11/18/19 25 11/17/2024 urina lysis panel , auto Unknown Analyte Yellow Not Available [facility] [address] [place] [address], [address], 11/17/2024 12:39:07 11/18/19 25 11/17/2024 urina lysis panel , auto Unknown Analyte Clear Not Available [facility] [address] [place] [address], [address], 11/17/2024 12:39:07 11/18/19 25 11/17/2024 urina lysis panel , auto Unknown Analyte 1.[address] [facility] [address] [place] [address], [address], 11/17/2024 12:39:07 11/18/19 25 11/17/2024 urina lysis panel , auto Unknown Analyte 1.003 - 1.030 Not Available [facility] [address] [place] [address], [address], 11/17/2024 12:39:07 11/18/19 25 11/17/2024 urina lysis panel , auto Unknown Analyte 5.[address] [facility] [address] [place] [address], [place], [address], 11/17/2024 12:39:07 11/18/19 25 11/17/2024 urina lysis panel , auto Unknown Analyte 5.0 - 8.0 Not Available [facility] [address] [place] [address], [address], 11/17/2024 12:39:07 11/18/19 25 11/17/2024 urina lysis panel , auto Unknown Analyte 25 Yuli/uL Not Available [facility] [address] [place] [address], [address], 11/17/2024 12:39:07 11/18/19 25 11/17/2024 urina lysis panel , auto Unknown Analyte Negati ve Not Available [facility] [address] [place] [address], [address], 11/17/2024 12:39:07 11/18/19 25 11/17/2024 urina lysis panel , auto Unknown Analyte Negati ve Not Available [facility] [address] [place] [address], [address], 11/17/2024 12:39:07 11/18/19 25 11/17/2024 urina lysis panel , auto Unknown Analyte Negati ve Not Available [facility] [address] [place] [address], [address], 11/17/2024 12:39:07 11/18/19 25 11/17/2024 urina lysis panel , auto Unknown Analyte 30 mg/dL Not Available [facility] [address] [place] [address], [address], 11/17/2024 12:39:07 11/18/19 25 11/17/2024 urina lysis panel , auto Unknown Analyte Negati ve Not Available [facility] [address] [place] [address], [place], [address], 11/17/2024 12:39:07 11/18/19 25 11/17/2024 urina lysis panel , auto Unknown Analyte >1000 mg/dL Not Available [facility] [address] [place] [address], [address], 11/17/2024 12:39:07 11/18/1911/17/2024 urina lysis panel , auto Unknown Analyte Normal Not Available [facility] [address] [place] [address], [address], 11/17/2024 12:39:07 11/18/19 25 11/17/2024 urina lysis panel , auto Unknown Analyte Negati ve Not Available [facility] [address] [place] [address], [address], 11/17/2024 12:39:07 11/18/19 25 11/17/2024 urina lysis panel , auto Unknown Analyte Negati ve Not Available [facility] [address] [place] [address], [address], 11/17/2024 12:39:07 11/18/1911/17/2024 urina lysis panel , auto Unknown Analyte 1 mg/dL Not Available [facility] [address] [place] [address], [address], 11/17/2024 12:39:07 11/18/1911/17/2024 urina lysis panel , auto Unknown Analyte Normal Not Available [facility] [address] [place] [address], [address], 11/17/2024 12:39:07 11/18/19 25 11/17/2024 urina lysis panel , auto Unknown Analyte 1 mg/dL Not Available [facility] [address] [place] [address], [place], [address], 11/17/2024 12:39:07 11/18/19 25 11/17/2024 urina lysis panel , auto Unknown Analyte Negati ve Not Available [facility] [address] [place] [address], [place], [address], 11/17/2024 12:39:07 11/18/19 25 11/17/2024 urina lysis panel , auto Unknown Analyte Trace Not Available [facility] [address] [place] [address], [place], [address], 11/17/2024 12:39:07 11/18/19 25 11/17/2024 urina lysis panel , auto Unknown Analyte Negati ve Not Available [facility] [address] [place] [address], [place], [address], 11/17/2024 12:39:07 11/24/19 25 11/23/2024 urina lysis panel , auto Unknown Analyte Clean Catch Not Available [facility] With [address], [place], [address], 11/23/2024 16:32:23 11/24/19 25 11/23/2024 urina lysis panel , auto Unknown Analyte Yellow Not Available [facility] With [address] [place], [address], 11/23/2024 16:32:23 11/24/19 25 11/23/2024 urina lysis panel , auto Unknown Analyte Slight ly Cloudy Not Available [facility] With [address], [place], [address], 11/23/2024 16:32:23 11/24/19 25 11/23/2024 urina lysis panel , auto Unknown Analyte 1.015 Not Available [facility] With [address], [place], [address], 11/23/2024 16:32:23 11/24/19 25 11/23/2024 urina lysis panel , auto Unknown Analyte 1.003 - 1.030 Not Available [facility] With [address], [place], [address], 11/23/2024 16:32:23 11/24/19 25 11/23/2024 urina lysis panel , auto Unknown Analyte 5.0 Not Available [facility] [address], [place], [address], 11/23/2024 16:32:23 11/24/19 25 11/23/2024 urina lysis panel , auto Unknown Analyte 5.0 - 8.0 Not Available [facility] With [address], [place], [address], 11/23/2024 16:32:23 11/24/19 25 11/23/2024 urina lysis panel , auto Unknown Analyte Negati ve Not Available [facility] With [address], [place], [address], 11/23/2024 16:32:23 11/24/19 25 11/23/2024 urina lysis panel , auto Unknown Analyte Negati ve Not Available [facility] With [address], [place], [address], 11/23/2024 16:32:23 11/24/19 25 11/23/2024 urina lysis panel , auto Unknown Analyte Negati ve Not Available [facility] [address], [place], [address], 11/23/2024 16:32:23 11/24/19 25 11/23/2024 urina lysis panel , auto Unknown Analyte Negati ve Not Available [facility] [address], [place], [address], 11/23/2024 16:32:23 11/24/19 25 11/23/2024 urina lysis panel , auto Unknown Analyte Negati ve Not Available [facility] [address], [place], [address], 11/23/2024 16:32:23 11/24/19 25 11/23/2024 urina lysis panel , auto Unknown Analyte Negati ve Not Available [facility] [address], [place], [address], 11/23/2024 16:32:23 11/24/19 25 11/23/2024 urina lysis panel , auto Unknown Analyte >1000 mg/dL Not Available [facility] [address], [place], [address], 11/23/2024 16:32:23 11/24/19 25 11/23/2024 urina lysis panel , auto Unknown Analyte Normal Not Available [facility] [address], [place], [address], 11/23/2024 16:32:23 11/24/19 25 11/23/2024 urina lysis panel , auto Unknown Analyte Negati ve Not Available [facility] [address], [place], [address], 11/23/2024 16:32:23 11/24/19 25 11/23/2024 urina lysis panel , auto Unknown Analyte Negati ve Not Available [facility] [address], [place], [address], 11/23/2024 16:32:23 11/24/19 25 11/23/2024 urina lysis panel , auto Unknown Analyte Normal Not Available [facility] [address], [place], [address], 11/23/2024 16:32:23 11/24/19 25 11/23/2024 urina lysis panel , auto Unknown Analyte Normal Not Available [facility] [address], [place], [address], 11/23/2024 16:32:23 11/24/19 25 11/23/2024 urina lysis panel , auto Unknown Analyte Negati ve Not Available [facility] [address], [place], [address], 11/23/2024 16:32:23 11/24/19 25 11/23/2024 urina lysis panel , auto Unknown Analyte Negati ve Not Available [facility] [address], [place], [address], 11/23/2024 16:32:23 11/24/19 25 11/23/2024 urina lysis panel , auto Unknown Analyte 50 Rocael/uL Not Available [facility] [address], [place], [address], 11/23/2024 16:32:23 11/24/19 25 11/23/2024 urina lysis panel , auto Unknown Analyte Negati ve Not Available [facility] [address], [place], [address], 11/23/2024 16:32:23 12/18/19 25 2024 URINE CULTU RE urine culture No growth day 3. Not Available [facility] [address] [place] [address], [place], [address], 2024 12:52:23 12/18/19 25 12/17/2024 urina lysis panel , auto Unknown Analyte Clean Catch Not Available [facility] [address] [place], [place], [address], 12/17/2024 16:54:04 12/18/19 25 12/17/2024 urina lysis panel , auto Unknown Analyte Yellow Not Available [facility] [address] [place], [place], [address], 12/17/2024 16:54:04 12/18/19 25 12/17/2024 urina lysis panel , auto Unknown Analyte Clear Not Available [facility] [address] [place], [place], [address], 12/17/2024 16:54:04 12/18/19 25 12/17/2024 urina lysis panel , auto Unknown Analyte 1.025 Not Available [facility] [address] [place], [place], [address], 12/17/2024 16:54:04 12/18/19 25 12/17/2024 urina lysis panel , auto Unknown Analyte 1.003 - 1.030 Not Available [facility] [address] [place], [address], 12/17/2024 16:54:04 12/18/19 25 12/17/2024 urina lysis panel , auto Unknown Analyte 5.0 Not Available [facility] With [address] [place], [address], 12/17/2024 16:54:04 12/18/19 25 12/17/2024 urina lysis panel , auto Unknown Analyte 5.0 - 8.0 Not Available [facility] [address] [place], [address], 12/17/2024 16:54:04 12/18/19 25 12/17/2024 urina lysis panel , auto Unknown Analyte 75 Yuli/uL Not Available [facility] [address] [place], [address], 12/17/2024 16:54:04 12/18/19 25 12/17/2024 urina lysis panel , auto Unknown Analyte Negati ve Not Available [facility] [address] [place], [address], 12/17/2024 16:54:04 12/18/19 25 12/17/2024 urina lysis panel , auto Unknown Analyte Negati ve Not Available [facility] [address] [place], [address], 12/17/2024 16:54:04 12/18/19 25 12/17/2024 urina lysis panel , auto Unknown Analyte Negati ve Not Available [facility] [address] [place], [place], [address], 12/17/2024 16:54:04 12/18/19 25 12/17/2024 urina lysis panel , auto Unknown Analyte Negati ve Not Available [facility] [address] [place], [address], 12/17/2024 16:54:04 12/18/19 25 12/17/2024 urina lysis panel , auto Unknown Analyte Negati ve Not Available [facility] [address] [place], [address], 12/17/2024 16:54:04 12/18/19 25 12/17/2024 urina lysis panel , auto Unknown Analyte >1000 mg/dL Not Available [facility] [address] [place], [place], [address], 12/17/2024 16:54:04 12/18/19 25 12/17/2024 urina lysis panel , auto Unknown Analyte Normal Not Available [facility] [address] [place], [address], 12/17/2024 16:54:04 12/18/19 25 12/17/2024 urina lysis panel , auto Unknown Analyte Negati ve Not Available [facility] [address] [place], [place], [address], 12/17/2024 16:54:04 12/18/19 25 12/17/2024 urina lysis panel , auto Unknown Analyte Negati ve Not Available [facility] [address] [place], [id number], 12/17/2024 16:54:04 12/18/19 25 12/17/2024 urina lysis panel , auto Unknown Analyte Normal Not Available [facility] With [address] [place], [address], 12/17/2024 16:54:04 12/18/19 25 12/17/2024 urina lysis panel , auto Unknown Analyte Normal Not Available [facility] With [address] [place], [id number], 12/17/2024 16:54:04 12/18/19 25 12/17/2024 urina lysis panel , auto Unknown Analyte 1 mg/dL Not Available [facility] [address] [place], [id number], 12/17/2024 16:54:04 12/18/19 25 12/17/2024 urina lysis panel , auto Unknown Analyte Negati ve Not Available [facility] [address] [place], [id number], 12/17/2024 16:54:04 12/18/19 25 12/17/2024 urina lysis panel , auto Unknown Analyte Negati ve Not Available [facility] With [address] [place], [id number], 12/17/2024 16:54:04 12/18/19 25 12/17/2024 urina lysis panel , auto Unknown Analyte Negati ve Not Available [facility] [address] [place], [id number], 12/17/2024 16:54:04 02/18/20 18 02/13/2018 CT, abdom en + pelvi s, w/o contr ast No observ ation record ed. [address] (Radiology) [address] [place] [address] , [place], [id number], 02/17/2018 11:42:19 02/20/20 18 02/19/2018 XR, abdom en, 1 view No observ ation record ed. [email or web address] Not Available 2017 18:38:44 Result Notes None recorded. Problems No Known Problems Procedures Surgical History Date Name Laterality Status Provider Name and Address Organization Details Recorded Time Post Void Residual; Ultrasound completed Oksana Porras [facility] 11/23/2024 16:43:00 Imaging Results Imaging Date Name Status LastModified by Organiz ation Details LastModified Time 02/13/2018 CT, abdomen + pelvis, w/o contrast completed [address] (Radiology) [address] [place] , [place], [id number], 02/17/2018 11:42:19 02/19/2018 XR, abdomen, 1 view completed [email or web address] Information not available 02/20/2018 18:38:44 Procedure Notes None recorded. Medical Equipment None Reported. Allergies Allergen ID Allergen Name Allergen Category Reaction Reaction Severity Criticality Documentation Date Start Date Code Code System Note Provider Name and Address Organization Details Recorded Time 357162 Product containin g penicilli n (product) medicatio n Not available Not available Not available 02/18/2018 89700 8001 [facility]ED [facility] 15:24:44 Medications Name Sig Start [...] Updated DateTime 8 162.56 cm 25.7 kg/m2 42155.8 6 g 86 /min 131 mm[Hg] 78 mm[Hg] Stuartdelontehilda Toni [facility] 8 14:19:24 Date Recorded Body height Body mass index (BMI) Body weight Provider Name and Address Organization Details Last Updated DateTime 10/29/2024 160.02 cm 24.6 kg/m2 39143.34 g Stuartdelontehilda Toni [facility] 10/29/2024 16:56:12 Date Recorded Body height Body mass index (BMI) Body weight Provider Name and Address Organization Details Last Updated DateTime 11/23/2024 160.02 cm 24.6 kg/m2 22522.34 g Oksana Vern [facility] 11/23/2024 16:32:09 Date Recorded Body height Body mass index (BMI) Body weight Provider Name and Address Organization Details Last Updated DateTime 12/17/2024 160.02 cm 24.6 kg/m2 67656.34 g Kathilda Toni [facility] 12/17/2024 16:53:18 Social History Question Answer Notes LastModified by Organizat ion Details LastModified Time Tobacco Smoking Status Former Smoker Kathilda Cortezt [facility] 10/29/2024 17:00:54 What Is Your Level Of Alcohol Consumption? Occasional [email or web address] Information not available 02/18/2018 Marital Status Informatio n not available 02/18/2018 What Was The Date Of Your Most Recent Tobacco Screening? 12/17/2024 [email or web address] Information not available 12/17/2024 Has Tobacco Cessation Counseling Been Provided? Yes [email or web address] Information not available 02/18/2018 On What Date Was Tobacco Cessation Counseling Provided? 02/26/2018 [email or web address] Information not available 02/26/2018 Sex: Unknown Functional Status None recorded. Mental Status None recorded. Family History Relationship Description Onset Age of this Age Resolved Age Notes LastModified by Organization Details LastModified Time Mother Family history of malignant neoplasm [email or web address] Not available 02/18 15:26:02 Maternal Grandmother Family history of malignant neoplasm [email or web address] Not available 02/18 15:26:10 Unspecified Relation Diabetes mellitus [email or web address] Not available 2024 16:59:53 Unspecified Relation Kidney disease [email or web address] Not available 2024 17:00:06 Medical History Condition Response Allergies/Hayfever Y Kidney Stones Y Heart Conditions Y Heart Arrhythmia Y Depression Y Pacemaker Y Anxiety Disorder Y Arthritis Y Acid Reflux (GERD) Y Sleep Apnea Y Gynecological HistoryNo gynecological history recorded. Obstetrics History GPAL:G 0 P 0 0 0 0 Past Encounters Encounter ID Performer Location Encounter Start Date Encounter Closed Date Diagnosis/Indication Diagnosis SNOMED-CT Code Diagnosis ICD10 Code Diagnosis Note [id number] MD [facility] [address] [place], [place] [address] 02/18/2018 14:18:27 02/18/2018 15:58:52 Normal 53208029 Z34.90 Kidney stone 86506386 N2 0.0 Ureteric stone 58368906 N20.1 [id number] MD [facility] [address] [place] [id number] 02/19/2018 13:56:01 02/19/2018 15:02:10 Ureteric stone 87189367 N20.1 [id number] LEO JOSE MD SURGERY SCHEDULE [address] [place] [address] 02/24/2018 07:20:26 02/24/2018 07:24:23 Ureteric stone 10597509 N20.1 [id number] LEO JOSE MD [facility] [address] [place] [address] 02/26/2018 13:58:19 02/26/2018 14:38:30 Kidney stone 78282647 N20.0 [id number] ANGELI CANNON MD [facility] [address] [address] 10/29/2024 15:58:18 10/29/2024 19:05:50 Female stress incontinence 69991974 N39.3 Recurrent urinary tract infection 570814160 N39.0 [id number] ANGELI CANNON MD SURGERY SCHEDULE [address] [place] [id number] 11/17/2024 11:55:00 11/17/2024 11:56:20 Postoperative pain 807803792 G89.18 [id number] ANGELI CANNON MD [facility] [address] [place] [address] 11/23/2024 16:25:47 11/23/2024 16:42:39 Female stress incontinence 80542999 N39.3 Recurrent urinary tract infection 450394574 N39.0 [id number] ANGELI CANNON MD [facility] [address] [address] 12/17/2024 16:37:18 12/18/2024 14:38:12 Urinary tract infectious disease 95638573 N39.0 Female str ess incontinence 70018766 N39.3 Health Concerns Section Related Observation LastModified by Organization Detai ls LastModified Time None Recorded Concern Status LastModified by Organization Details LastModified Time None Recorded Advance Directives Directive None Recorded Payers Insurance Date Sequence Insurance Name Policy Number Policy Alcantara Covered Member ID Alcantara Member ID Guarantor Name 11/17/2024 2 [place] [id number] 3 Alysa Mancini [id number] Alysa Mancini 11/17/2024 GENERIC INSURANCE - MOVED-HOLD Alysa Mancini 12/28/2024 1 [place]PPO) [id number] Alysa Mancini [id number] Alysa Kevinchelsie Notes Date Note Type Note Provider Name and Address Organization Details Recorded Time 02/26/2018 text/html she is back following ureteroscopy. She had passed her stone. She's having a lot of pain from the stent. His stent is removed today LEO JOSE MD [address] [place] [address], [phone], [facility] 02/26/2018 14:24:49 10/29/2024 text/html 38-year-old ilana mallory in the [...] has history of pacemaker. ANGELI CANNON MD [address] [place] [address], [address], [facility] 11/08/2024 18:43:10 11/23/2024 text/html 38-year-old ilana mallory in the office [...] gross hematuria or dysuria. ANGELI CANNON MD [address] [place] [address], [phone], [facility] 12/06/2024 14:19:54 12/17/2024 text/html 38-year-old ilana mallory in the [...] gross hematuria or dysuria. ANGELI CANNON MD [address] [place], [address], [facility] 12/27/2024 08:17:31 OBGyn Episode No OBEpisode recorded.
--- NOTE | 2025-01-21 12:12 | XR_ITS ---
FINAL REPORT CLINICAL HISTORY: Chest pain, shortness of breath COMPARISON: 06/24/2024 FINDINGS: A portable view of the chest was obtained. There is no change in the left AICD. Cardiac and mediastinal silhouettes are within normal limits. The lungs are clear. There is no pleural effusion or pneumothorax. IMPRESSION: No acute process on this portable exam. Reviewed, Interpreted and Dictated by Jocelynn Fernandez MD Transcribed by Ina Collins Authenticated and [facility]
--- NOTE | 2025-01-21 12:16 | ED_ITS ---
<Statement entered by Erum Forrester DO - 01/21/25 15:38> I was consulted by the ENZO, and we discussed the complexity of the problems being addressed. I approved the treatment and management plan for this patient's care in the emergency department, thus performing a substantive portion of the medical decision making. Erum Forrester DO Discharge Plan Disposition Patient Disposition: Home, Self-Care Prescriptions Prescriptions: New cefadroxil 500 mg capsule 500 mg PO BID 10 Days Qty: 20 0RF No Action trazodone 50 mg tablet 50 mg PO HSP PRN (Reason: Insomnia) hydroxyzine HCl 50 mg tablet 100 mg PO TIDP PRN (Reason: Anxiety) Patient Comments: TAKE 1 TO 2 TABLETS 3 TIMES EACH DAY NEEDED FOR ANXIETY buspirone 30 mg tablet 30 mg PO BID Patient Comments: TAKE 1 TABLET 2 TIMES EACH DAY lorazepam 1 mg tablet 1 mg PO TIDP PRN (Reason: Anxiety) gabapentin 300 mg capsule 300 mg PO DAILY loratadine [Allergy Relief (loratadine)] 10 mg tablet 10 mg PO DAILY omeprazole 40 mg capsule,delayed release(DR/EC) 40 mg PO DAILY glycopyrrolate 2 mg tablet 2 mg PO cyanocobalamin (vitamin B-12) 1,000 mcg capsule 1,000 mcg PO DAILY 30 Days Qty: 30 0RF Auvelity 45-105 mg tablet, IR and ER, biphasic 1 tab PO BID gabapentin 100 mg capsule 100 - 200 mg PO HS Jardiance 10 mg tablet 10 mg PO DAILY Referrals Follow up/Referrals: Sandro Sebastian [Primary Care Provider] - See instructions Activity Restrictions/Add. Instructions Additional Instructions/Restrictions: Today you were evaluated in the emergency department. You have been diagnosed with a urinary tract infection, please pick your medication up and start it. You have been given IV antibiotics for today. As we discussed, if you have not had any symptom improvement or worsening within 24 hours return to the ED immediately. If you are improving, please follow-up with your primary doctor within 72 hours. Increase your fluid intake. Clinical Impressions Clinical Impression: UTI (urinary tract infection) Qualifiers: Urinary tract infection type: site unspecified Hematuria presence: with hematuria Qualified Code(s): N39.0 - Urinary tract infection, site not specified Instructions Patient Instructions: Urinary Tract Infection Print Language Print Language: Romanian Discharge ED Provider: Erum Forrester General Adult HPI <Olivia Parks APRN - Last Filed: 01/21/25 17:50> General Chief complaint: PAIN Stated complaint: Cardio pt, fainted/AO 3wks ago-back pain. Poss.UTI Time Seen by Provider: 01/21/25 12:03 Mode of Arrival: Ambulatory Source of Information: Patient Description of Symptoms (Recalled from ER Triage Doc. by RN): Patient states that she fell two weeks ago and hurt her lower back and tailbone. Also states that she has not been able to urinate in 3-4 hours. History of Present Illness HPI narrative: patient is a 39-year-old female PMHx pacemaker, heart failure with reduced ejection fraction, cardiomyopathy, abnormal EKG, history of near syncope, history of high pulmonary arterial pressure, history of hypotension, history of elevated serum creatinine, who presents to the ED for multiple complaints. Related Data Home Medications ?Medication ?Instructions ?Recorded ?Confirmed loratadine 10 mg tablet (Allergy 10 mg PO DAILY 05/05/21 01/21/25 Relief (loratadine)) omeprazole 40 mg capsule,delayed 40 mg PO DAILY 05/05/21 01/21/25 release buspirone 30 mg tablet 30 mg PO BID 09/13/23 01/21/25 hydroxyzine HCl 50 mg tablet 100 mg PO TIDP PRN Anxiety 09/13/23 01/21/25 lorazepam 1 mg tablet 1 mg PO TIDP PRN Anxiety 09/13/23 01/21/25 trazodone 50 mg tablet 50 mg PO HSP PRN Insomnia 09/13/23 01/21/25 gabapentin 300 mg capsule 300 mg PO DAILY 10/26/24 01/21/25 dextromethorphan IR 45 1 tab PO BID 12/24/24 01/21/25 mg-bupropion ER 105 mg biphasic tablet (Auvelity) empagliflozin 10 mg tablet 10 mg PO DAILY 12/25/24 01/21/25 (Jardiance) gabapentin 100 mg capsule 100 - 200 mg PO HS 12/25/24 01/21/25 glycopyrrolate 2 mg tablet 2 mg PO 01/21/25 01/21/25 Previous Rx's ?Medication ?Instructions ?Recorded cefadroxil 500 mg capsule 500 mg PO BID 10 days #20 caps 01/21/25 cyanocobalamin (vitamin B-12) 1,000 mcg PO DAILY 30 days #30 caps 01/21/25 1,000 mcg capsule Allergies Allergy/AdvReac Type Severity Reaction Status Date / Time Penicillins Allergy Intermediate Verified 01/21/25 10:27 metoprolol AdvReac Severe Verified 01/21/25 10:27 [facility] <Olivia Parks APRN - Last Filed: 01/21/25 17:50> [facility] Disclaimer: The information contained in this section may have been updated after the patient was seen, as this information can be updated by other users. Medical History Gestational diabetes SVT (supraventricular tachycardia) History of pacemaker NYHA class 3 systolic congestive heart failure with reduced left ventricular function NYHA class 2 heart failure with reduced ejection fraction High pulmonary arterial pressure Hypotension Syncope Elevated serum creatinine Creatinine elevation Kidney stone Family history of ischemic heart disease (IHD) Umbilical hernia Surgical History History of renal stent History of oral surgery History of breast biopsy Family History Grandfather Family history of myocardial infarction Sister Family history of cancer Father Family history of cancer Social History Smoking Status: Current every day smoker alcohol intake: former substance use type: denies use current occupational status: employed Travel in the last 8 weeks?: None household members: family housing: house current occupational exposures/hazards: No caffeine: Yes Have you lived/traveled outside [place] in past 30 days?: No Contact w/someone who lives/traveled outside US past 30 days?: No Exposure to someone with infectious disease in past 14 days?: No Do you have a fever (greater than 100.4 F or 38 C)?: No Have you tested positive for COVID-19?: No Exposed to someone with COVID-19 in past 14 days?: No Do you have a sore throat?: No Do you have a cough?: No Do you have any weakness?: No Do you have any diarrhea?: No Are you experiencing any unusual bleeding?: No Do you have any muscle aches/pain?: No Do you have any abdominal pain?: No Are you experiencing loss of taste or smell?: No Other Medical History Have you received the Flu Vaccine for this season: No Have you received the Pneumonia Vaccine: No <Olivia Parks APRN - Last Filed: 01/21/25 17:50> ROS Obtained: Yes Systems reviewed as appropriate & no additional complaints except as documented Physical Exam <Olivia Parks APRN - Last Filed: 01/21/25 17:50> General General appearance: alert Head Head exam: atraumatic and normocephalic Eye Eye exam: Present normal appearance and PERRL ENT ENT exam: Present normal exam Neck Neck exam: Present normal inspection and full ROM Chest Chest inspection: Present normal inspection and symmetric chest wall rise; Absent tenderness Respiratory Respiratory exam: Present normal lung sounds bilaterally Cardiovascular Cardiovascular exam: Present regular rate Abdominal Exam Abdominal exam: Present soft, tenderness (suprapubic) and normal bowel sounds Extremities Exam Extremities exam: Present normal inspection and full ROM Back Exam Back exam: Present CVA tenderness (R) and CVA tenderness (L) Neurological Exam Neurological exam: Present alert and oriented X3 Psychiatric Psychiatric exam: Present normal affect and normal mood Skin Skin exam: Present warm and dry Medical Decision Making <Olivia Parks APRN - Last Filed: 01/21/25 17:50> Medical Records Screening: Per USPSTF and CDC recommendations, given the prevalence of disease in our region, it is our hospital?s policy to screen for HIV and viral Hepatitis for all patients aged 18 and over and those with ongoing risk factors. Jaime Inquiry Pt receiving controlled substance: No Vital Signs: 01/21/25 11:55 01/21/25 12:00 01/21/25 12:30 Temperature 98.0 F Temperature Source Oral Pulse Rate 81 Pulse Rate [Radial] 87 Respiratory Rate 16 Blood Pressure 112/75 116/75 Blood Pressure [Right Arm] 129/81 Blood Pressure Mean 84 Blood Pressure Mean [Right Arm] 97 Blood Pressure Source Blood Pressure Source [Right Arm] Automatic Cuff Blood Pressure Position Blood Pressure Position [Right Arm] Sitting 02 Sat by Pulse Oximetry 100 96 Oxygen Delivery Method Room Air 01/21/25 13:00 01/21/25 13:30 01/21/25 14:18 Temperature Temperature Source Pulse Rate 67 Pulse Rate [Radial] Respiratory Rate Blood Pressure 112/72 105/66 L 111/76 Blood Pressure [Right Arm] Blood Pressure Mean 81 72 Blood Pressure Mean [Right Arm] Blood Pressure Source Blood Pressure Source [Right Arm] Blood Pressure Position Blood Pressure Position [Right Arm] 02 Sat by Pulse Oximetry 97 Oxygen Delivery Method 01/21/25 14:30 01/21/25 15:00 01/21/25 15:38 Temperature Temperature Source Pulse Rate 66 68 Pulse Rate [Radial] Respiratory Rate Blood Pressure 113/69 107/69 L 128/86 Blood Pressure [Right Arm] Blood Pressure Mean 84 76 Blood Pressure Mean [Right Arm] Blood Pressure Source Blood Pressure Source [Right Arm] Blood Pressure Position Blood Pressure Position [Right Arm] 02 Sat by Pulse Oximetry 96 95 Oxygen Delivery Method Room Air 01/21/25 16:00 01/21/25 16:14 Temperature 97.9 F Temperature Source Oral Pulse Rate 69 76 Pulse Rate [Radial] Respiratory Rate 16 Blood Pressure 131/73 131/73 Blood Pressure [Right Arm] Blood Pressure Mean Blood Pressure Mean [Right Arm] Blood Pressure Source Automatic Cuff Blood Pressure Source [Right Arm] Blood Pressure Position Supine Blood Pressure Position [Right Arm] 02 Sat by Pulse Oximetry 95 Oxygen Delivery Method Room Air Lab Data Lab Results 01/21/25 12:34: WBC 5.4, RBC 5.01, Hgb 13.7, Hct 41.4, MCV 82.6, MCH 27.3, MCHC 33.1, RDW 13.0, Plt Count 257, MPV 10.2, Neut % (Auto) 50.9, Lymph % (Auto) 36.6, [place] % (Auto) 5.2, Eos % (Auto) 6.5, Baso % (Auto) 0.6, Neut # (Auto) 2.8, Lymph # (Auto) 2.0, [place] # (Auto) 0.3, Eos # (Auto) 0.4, Baso # (Auto) 0.0, L actate < 0.5 L, Troponin I < 0.01, NT-Pro-B Natriuret Pep 111, Serum HCG, Qual Negative, Urine Color Yellow, Urine Appearance Cloudy, Urine pH 6.0, Ur Specific [place] 1.010, Urine Protein Negative, Urine Glucose (UA) 3+, Urine Ketones Negative, Urine Blood 1+ A, Urine Nitrate Positive A, Urine Bilirubin Negative, Urine Urobilinogen 0.2, Ur Leukocyte Esterase 2+ A, Urine RBC Occasional, Urine WBC 50-100, Ur Squamous Epith Cells Occasional, Urine Bacteria 2+ 01/21/25 15:10: Troponin I < 0.01 01/21/25 12:34 Orders (Tests/Meds): ED MEDICATIONS Discontinued Medications Generic Name Dose Route Start Last Admin Trade Name Freq PRN Reason Stop Dose Admin Hydromorphone HCl 1 mg 01/21/25 15:13 01/21/25 15:35 Hydromorphone 2mg/Ml Syringe IV 01/21/25 15:14 1 mg ONCE ONE Administration Sodium Chloride 500 mls @ 999 mls/hr 01/21/25 12:12 01/21/25 12:46 Sod Chlor 0.9% 1000ml Bag IV 01/21/25 12:42 999 mls/hr .Q31M ONE Administration Ceftriaxone Sodium 1 gm/ 50 mls @ 100 mls/hr 01/21/25 13:33 01/21/25 13:53 Sodium Chloride IV 01/21/25 14:02 100 mls/hr ONCE ONE Administration Iopamidol 70 ml 01/21/25 14:03 01/21/25 14:04 Iopamidol-370 (76%);100ml Bottle IV 01/21/25 14:04 70 ml ONCE ONE Administration Morphine Sulfate 4 mg 01/21/25 12:12 01/21/25 12:47 Morphine 4mg/Ml Syringe IV 01/21/25 12:13 4 mg ONCE ONE Administration Ondansetron HCl 4 mg 01/21/25 12:12 01/21/25 12:46 Ondansetron 4mg/2ml Vial IV 01/21/25 12:13 4 mg ONCE ONE Administration Sodium Chloride 10 ml 01/21/25 14:03 01/21/25 14:04 Sodium Chloride 0.9% 10ml Syr (Rad Only) IV 01/21/25 14:04 10 ml ONCE ONE Administration ORDERS Category Date Time Status CT abdomen pelvis w con Stat Cat Scan 01/21/25 13:30 Completed CXR --portable [XR chest portable] Stat Exams 01/21/25 12:12 Completed BNP [NT Pro Brain Natriuretic Pep.] Stat Lab 01/21/25 12:34 Completed CBC w/Auto Diff [Complete Blood Count Auto Diff] Stat Lab 01/21/25 12:34 Completed HCG Qualitative, Serum Stat Lab 01/21/25 12:34 Completed HIV Combo Stat Lab 01/21/25 12:34 Received Hepatitis C Ab Qual. W/ RFX Stat Lab 01/21/25 12:34 Received Lactic Acid Stat Lab 01/21/25 12:34 Completed Trop I [Troponin I] Stat Lab 01/21/25 12:34 Completed Troponin I Q3H Lab 01/21/25 15:10 Completed Urinalysis and Microscopic Stat Lab 01/21/25 12:34 Completed Urine Culture Stat Micro 01/21/25 12:34 Received Medical Decision Narrative: In summary, patient is a 39-year-old female PMHx pacemaker, heart failure with reduced ejection fraction, cardiomyopathy, abnormal EKG, history of near syncope, history of high pulmonary arterial pressure, history of hypotension, history of elevated serum creatinine, who presents to the ED for multiple complaints. Patient states that over the past several days her baseline shortness of breath (from her CHF) has worsened. She states that over the past week she has began to have dysuria, frequency and urgency. Patient states that she has frequent UTIs. She reports suprapubic and lower back pain. She also reports that she falls frequently, however her most recent fall within the past 2 weeks she injured her tailbone and is requesting imaging due to pain is worsening and she is unable to sit properly. Endorses fever, body aches and chills over the past several days. Denies headache, visual disturbances, posterior neck pain, neck stiffness, chest pain, vomiting, diarrhea. Upon initial evaluation, patient is alert, oriented and cooperative. She is hemodynamically stable, afebrile at this time. Physical exam remarkable for suprapubic abdominal tenderness, abdomen is soft. Bilateral CVA tenderness. L- spine tenderness. Differential diagnosis include CHF exacerbation, pneumonia, ACS, infectious process, electrolyte abnormality, UTI, pyelonephritis, fracture, among others. Discussed with patient that we will proceed with hematologic labs, imaging, urine, , patient denies need for STD testing. Patient will be symptomatically managed with IV fluids, Zofran and morphine. Hematologic labs reviewed. CBC unremarkable for any leukocytosis, stable H&H. Lactate < 0.5. Troponin < 0.01. BNP 111. Serum hCG negative. Urinalysis remarkable for cloudy urine, blood, nitrites, leuk esterase, bacteria. Will proceed with Rocephin IV, patient states she does not know her reaction to penicillin as she was very little when this occurred. Proceeding with CT of the abdomen and pelvis Final read of the CT abdomen pelvis remarkable for long segment wall thickening of descending colon, favoring colitis. Wall thickening of the urinary bladder could represent cystitis. Nonobstructing right renal stone. Upon reassessment, patient's condition has improved. She is able to p.o. She remains hemodynamically stable. Given this I feel safe that she can be discharged home at this time. Discussed pyelonephritis. Discussed using Tylenol Motrin [id number] for symptomatic relief. Advised her to take the cefadroxil as directed, advised if she is not improved or if she is worsening within 24 hours she needs to return to the ED immediately. Discussed increase fluid intake. We discussed even if she is not improving, she will need to follow-up with PCP within 3 days. <Erum Forrester, DO - Last Filed: 01/21/25 15:12> Vital Signs: 01/21/25 11:55 01/21/25 12:00 01/21/25 12:30 Temperature 98.0 F Temperature Source Oral Pulse Rate 81 Pulse Rate [Radial] 87 Respiratory Rate 16 Blood Pressure 112/75 116/75 Blood Pressure [Right Arm] 129/81 Blood Pressure Mean 84 Blood Pressure Mean [Right Arm] 97 Blood Pressure Source Blood Pressure Source [Right Arm] Automatic Cuff Blood Pressure Position Blood Pressure Position [Right Arm] Sitting 02 Sat by Pulse Oximetry 100 96 Oxygen Delivery Method Room Air 01/21/25 13:00 01/21/25 13:30 01/21/25 14:18 Temperature Temperature Source Pulse Rate 67 Pulse Rate [Radial] Respiratory Rate Blood Pressure 112/72 105/66 L 111/76 Blood Pressure [Right Arm] Blood Pressure Mean 81 72 Blood Pressure Mean [Right Arm] Blood Pressure Source Blood Pressure Source [Right Arm] Blood Pressure Position Blood Pressure Position [Right Arm] 02 Sat by Pulse Oximetry 97 Oxygen Delivery Method 01/21/25 14:30 01/21/25 15:00 01/21/25 15:38 Temperature Temperature Source Pulse Rate 66 68 Pulse Rate [Radial] Respiratory Rate Blood Pressure 113/69 107/69 L 128/86 Blood Pressure [Right Arm] Blood Pressure Mean 84 76 Blood Pressure Mean [Right Arm] Blood Pressure Source Blood Pressure Source [Right Arm] Blood Pressure Position Blood Pressure Position [Right Arm] 02 Sat by Pulse Oximetry 96 95 Oxygen Delivery Method Room Air 01/21/25 16:00 01/21/25 16:14 Temperature 97.9 F Temperature Source Oral Pulse Rate 69 76 Pulse Rate [Radial] Respiratory Rate 16 Blood Pressure 131/73 131/73 Blood Pressure [Right Arm] Blood Pressure Mean Blood Pressure Mean [Right Arm] Blood Pressure Source Automatic Cuff Blood Pressure Source [Right Arm] Blood Pressure Position Supine Blood Pressure Position [Right Arm] 02 Sat by Pulse Oximetry 95 Oxygen Delivery Method Room Air Lab Data Lab Results 01/21/25 12:34: WBC 5.4, RBC 5.01, Hgb 13.7, Hct 41.4, MCV 82.6, MCH 27.3, MCHC 33.1, RDW 13.0, Plt Count 257, MPV 10.2, Neut % (Auto) 50.9, Lymph % (Auto) 36.6, [place] % (Auto) 5.2, Eos % (Auto) 6.5, Baso % (Auto) 0.6, Neut # (Auto) 2.8, Lymph # (Auto) 2.0, [place] # (Auto) 0.3, Eos # (Auto) 0.4, Baso # (Auto) 0.0, L actate < 0.5 L, Troponin I < 0.01, NT-Pro-B Natriuret Pep 111, Serum HCG, Qual Negative, Urine Color Yellow, Urine Appearance Cloudy, Urine pH 6.0, Ur Specific [place] 1.010, Urine Protein Negative, Urine Glucose (UA) 3+, Urine Ketones Negative, Urine Blood 1+ A, Urine Nitrate Positive A, Urine Bilirubin Negative, Urine Urobilinogen 0.2, Ur Leukocyte Esterase 2+ A, Urine RBC Occasional, Urine WBC 50-100, Ur Squamous Epith Cells Occasional, Urine Bacteria 2+ 01/21/25 15:10: Troponin I < 0.01 Orders (Tests/Meds): ED MEDICATIONS Discontinued Medications Generic Name Dose Route Start Last Admin Trade Name Freq PRN Reason Stop Dose Admin Hydromorphone HCl 1 mg 01/21/25 15:13 01/21/25 15:35 Hydromorphone 2mg/Ml Syringe IV 01/21/25 15:14 1 mg ONCE ONE Administration Sodium Chloride 500 mls @ 999 mls/hr 01/21/25 12:12 01/21/25 12:46 Sod Chlor 0.9% 1000ml Bag IV 01/21/25 12:42 999 mls/hr .Q31M ONE Administration Ceftriaxone Sodium 1 gm/ 50 mls @ 100 mls/hr 01/21/25 13:33 01/21/25 13:53 Sodium Chloride IV 01/21/25 14:02 100 mls/hr ONCE ONE Administration Iopamidol 70 ml 01/21/25 14:03 01/21/25 14:04 Iopamidol-370 (76%);100ml Bottle IV 01/21/25 14:04 70 ml ONCE ONE Administration Morphine Sulfate 4 mg 01/21/25 12:12 01/21/25 12:47 Morphine 4mg/Ml Syringe IV 01/21/25 12:13 4 mg ONCE ONE Administration Ondansetron HCl 4 mg 01/21/25 12:12 01/21/25 12:46 Ondansetron 4mg/2ml Vial IV 01/21/25 12:13 4 mg ONCE ONE Administration Sodium Chloride 10 ml 01/21/25 14:03 01/21/25 14:04 Sodium Chloride 0.9% 10ml Syr (Rad Only) IV 01/21/25 14:04 10 ml ONCE ONE Administration ORDERS Category Date Time Status CT abdomen pelvis w con Stat Cat Scan 01/21/25 13:30 Completed CXR --portable [XR chest portable] Stat Exams 01/21/25 12:12 Completed BNP [NT Pro Brain Natriuretic Pep.] Stat Lab 01/21/25 12:34 Completed CBC w/Auto Diff [Complete Blood Count Auto Diff] Stat Lab 01/21/25 12:34 Completed HCG Qualitative, Serum Stat Lab 01/21/25 12:34 Completed HIV Combo Stat Lab 01/21/25 12:34 Received Hepatitis C Ab Qual. W/ RFX Stat Lab 01/21/25 12:34 Received Lactic Acid Stat Lab 01/21/25 12:34 Completed Trop I [Troponin I] Stat Lab 01/21/25 12:34 Completed Troponin I Q3H Lab 01/21/25 15:10 Completed Urinalysis and Microscopic Stat Lab 01/21/25 12:34 Completed Urine Culture Stat Micro 01/21/25 12:34 Received ECG Data Tracing #1: I reviewed this ECG and interpreted as documented below: Ventricularly paced at a rate of [address] changes concerning for STEMI ECG initial impression date: 01/21/25 ECG initial impression time: 12:44 Critical Care <Olivia Parks APRN - Last Filed: 01/21/25 17:50> Critical Care Time Critical Care Time: No
[2025-01-21 12:42] LABS: Microscopic, Urine URINE MICROSCOPIC (MICROSCOPIC)
--- NOTE | 2025-01-21 12:42 | ECG_ITS ---
APPROVED REPORT Exam: Resting ECG HR:79 bpm ECG Measurements Heart Rate 79 AXES WI 140 P 22 QRSd 113 QRS -54 QT 410 T 30 QTc 444 Conclusion ELECTRONIC VENTRICULAR PACEMAKER No STEMI Electronically signed by : JAMEL ATKINS, 01/22/2025 09:52:49
[2025-01-21 12:44] LABS: Appearance,Urine CLOUDY (Clear); Bilirubin,Urine Negative (Negative); Blood, Urine 1+ (Negative); Color,Urine YELLOW (Yellow); Glucose,Urine (UA) 3+ (Negative); Ketones,Urine Negative (Negative); Leukocyte Esterase,Urine 2+ (Negative); Nitrate,Urine POSITIVE (Negative); Protein,Urine Negative (Negative); Urobilinogen,Urine 0.2 EU/dl (0.2)
[2025-01-21] MEDS: ONDANSETRON 4MG/2ML VIAL 4 MG IV (12:46)
[2025-01-21] MEDS: 0.9 % SODIUM CHLORIDE 1000ML 500 ML 999 ML IV (12:46)
[2025-01-21 12:47] LABS: Basophils % 0.6 % (0.1-2.0); Eosinophils # 0.4 Kmm3 (0.0-0.4); Eosinophils % 6.5 % (0.1-12.0); Hematocrit 41.4 % (37.0-47.0); Hemoglobin 13.7 g/dL (12.2-16.2); Immature Granulocytes # 0.01 10^3uL; Immature Granulocytes % 0.2 %; Lymphocytes % 36.6 % (10-50); Mean Corpuscular HGB Conc 33.1 g/dL (31.8-35.4); Mean Corpuscular Hemoglobin 27.3 pg (27.0-31.2); Mean Corpuscular Volume 82.6 fl (81-99); Mean Platelet Volume 10.2 fl (7.4-10.4); Monocytes # 0.3 K/mm3 (0.1-1.0); Monocytes % 5.2 % (1.7-9.3); Neutrophils # 2.8 K/mm3 (1.8-7.8); Neutrophils % 50.9 % (37.0-80.0); Nucleated Red Blood Cells # 0 10^3/uL; Nucleated Red Blood Cells % 0 %; Platelet Count 257 K/mm3 (142-424); Red Blood Count 5.01 M/mm3 (4.20-5.40); Red Cell Distribution Width-SD 39.4 fL; White Blood Count 5.4 K/mm3 (4.8-10.8)
[2025-01-21] MEDS: MORPHINE 4MG/ML SYRINGE 4 MG IV (12:47)
[2025-01-21 12:52] LABS: HCG Qualitative, Serum Negative (Negative)
[2025-01-21 12:53] LABS: Lactic Acid < 0.5 mmol/L (0.7-2.1)
[2025-01-21 13:02] LABS: Bacteria,Urine 2+ /lpf; RBC,Urine Occasional #/hpf (0-3); Squamous Epithelial Cell,Urine Occasional #/hpf (0-5); WBC,Urine 50-100 #/hpf (0-3)
[2025-01-21 13:09] LABS: NT Pro Brain Natriuretic Pep. 111 pg/mL (0-125)
[2025-01-21 13:13] LABS: Troponin I < 0.01 ng/ml (0.00-0.034)
--- NOTE | 2025-01-21 13:30 | CT_ITS ---
FINAL REPORT TECHNIQUE: Thin section axial images were obtained through the abdomen after intravenous contrast. Reconstruction images were obtained from the axial data. This study was performed with techniques to keep radiation doses as low as reasonably achievable, (ALARA). Individualized dose reduction techniques using automated exposure control or adjustment of mA and/or kV according to the patient's size were employed. CLINICAL HISTORY: Lower abdominal pain / back pain COMPARISON: None FINDINGS: The lung bases are clear. The liver is homogeneous. The gallbladder is present. The spleen, adrenal glands, and pancreas are unremarkable. There is a nonobstructing right renal stone. There is no hydronephrosis or solid renal mass. There is no evidence of small bowel obstruction. The appendix is unremarkable. There is long segment colonic wall thickening involving the descending colon concerning for infectious or inflammatory colitis. The uterus is unremarkable for age. There is wall thickening of the urinary bladder, cystitis not excluded. There is no abdominal or pelvic lymphadenopathy. There is no ascites. No acute osseous abnormalities identified. IMPRESSION: Long segment wall thickening of the descending colon, favor colitis. Wall thickening of the urinary bladder could represent cystitis. Nonobstructing right renal stone. Reviewed, Interpreted and Dictated by Jocelynn Fernandez MD Transcribed by Ina Collins Authenticated and [facility]
[2025-01-21] MEDS: CEFTRIAXONE 1 GM 1 GM in 0.9 % SODIUM CHLORIDE 50 ML IV (13:53)
[2025-01-21] MEDS: IOPAMIDOL-370 (76%);100ML BOTTLE 70 ML IV (14:04)
[2025-01-21] MEDS: SODIUM CHLORIDE 0.9% 10ML SYR (RAD ONLY) 10 ML IV (14:04)
--- NOTE | 2025-01-21 14:56 | PC.NURSE ---
Patient able to void 300cc urine.
[2025-01-21] MEDS: HYDROMORPHONE 2MG/ML SYRINGE 1 MG IV (15:35)
[2025-01-21 15:45] LABS: Troponin I < 0.01 ng/ml (0.00-0.034)
[2025-01-21 19:48] LABS: HIV Combo NEGATIVE (Negative)
[2025-01-21 19:56] LABS: Hepatitis C Ab Qual. W/ RFX NEGATIVE (Negative)
--- NOTE | 2025-01-22 17:25 | PC.NURSE ---
I discussed pts prelim urine culture results with . No changed needed in treatment plan
== END 2025-01-21 16:15 | disposition home or self-care (01) ==
PROVIDERS: Nurse Practitioner; Emergency Provider Emergency Medicine; PCP Family Medicine
DX: M54.50 Low back pain, unspecified (principal); N39.0 Urinary tract infection, site not specified; R30.0 Dysuria; R39.15 Urgency of urination; R35.0 Frequency of micturition; N20.0 Calculus of kidney; Z11.59 Encounter for screening for other viral diseases; Z11.4 Encounter for screening for human immunodeficiency virus [HIV]
CPT/HCPCS: 71045; 74177; 81001; 83605; 83880; 84484; 84703; 85025; 86803; 87086; 87088; 87186; 87389; 93005; 96365; 96375; 99285; J0696; J1171; J2270; J2405; J7030; Q9967

== ENCOUNTER 2025-05-19 11:30 | Outpatient (CLI) | payer BC, SELFPAY ==
--- OUTSIDE RECORDS SUMMARY | 2025-01-08 06:15 | XMS_ITS ---
Author Organization [facility] Address [address] [facility] [address] [place] [address] Care Team Providers Care Software Product Specialist Name Role Phone Chiqui Gibson Unavailable [phone] Maida Reno Unavailable [phone] REASON FOR VISIT Annual Social History Sex Assigned At : Social History Observation Description Sex Assigned At Female Encounters Encounter Location Date Provider Diagnosis [facility] [address] [place] [address] 01/08/2025 Maida Reno Plan Of Treatment Next Appt Details Provider Name:Aramis Felix, 04/26/2026 02:15:00 PM, [address] [facility] [address], [place], [address], Progress Notes * Alysa MANCINI MDOB:02/1986 (39 yo F)Acc No.[id number]:01/08/2025 Progress Note Patient: Alysa Romero Provider: Linda Reno APRN :1985 A ge:39 Y S ex:Female Date:01/08/2025 Address:[address] [place], [place] [phone] Subjective: * Chief Complaints: * A nnual * Electronic signature of Victyra Reno NP on 05/21/2025 at 08:42 AM EDT Sign off status: Pending Visit Status: N /S (No-Show) * Provider: Linda Reno APRN Date: 0 01/08/2025 Generated for Lluvia lewis/Rodolfo/Cortney on: 0 05/21/2025 08:42 AM EDT
--- OUTSIDE RECORDS SUMMARY | 2025-01-13 06:00 | XMS_ITS ---
Author Organization [facility] Address [address] [facility] [address] [place] [address] Care Team Providers Care Health Worker Name Role Phone Chiqui Gibson Unavailable [phone] Allergies Allergen (clinical drug ingredient) Drug/Non Drug [...] Provider Diagnosis [facility] [address] [facility] [address] [place] [address] 01/13/2025 Chiqui Gibson Plan Of Treatment Next Appt Details Provider Name:Aramis Felix, 04/26/2026 02:15:00 PM, [address] [facility], [address], [place], [address], Progress Notes * Alysa MANCINI MDOB:02/1986 (39 yo F)Acc No.[id number]:01/13/2025 Patient: Angeli venita Alysa Jo-Ann Provider: Brodie Gibson APRN :1985 A ge:39 Y S ex:Female Date:01/13/2025 Address:[address] [place] [address] Subjective: * Chief Complaints: * N explanon Insertion * Medical History: ASCUS HPV+ Abnormal Pap Acid Reflux Anxiety Bowel Problems Depression Female Problems High Blood Pressure Stomach Problems Urinary Tract Infections Yeast Infections H/O STD BV IUFD Tokotsubu CMP Cervical high risk HPV (human papillomavirus) test positive ASCUS of cervix with negative high risk HPV * 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 Currently S exual Activity/Contraception: E deborah been sexually active? Y es C urrently sexually active? Y es H istory of STIs: H uman Papilloma Virus (HPV) L ast Preventive Screening Labs: 2 023. * OB History: P regnancy History (GPA) Total Pregnancies 4 Full Term 3 Premature 0 AB. Induced 0 AB. Spontaneous 0 AB. Elective 1 AB. Therapeutic 0 Ectopics 0 Multiple Births 0 Living 3 Vaginal Deliveries 3 C-Sections 0 G P : 4 Para: 3 P regnancy # 1: 2 009, . P regnancy # 2: Stephanie alanis, 04/2010, female. P regnancy # 3: 2 019, Stebie, normal spontaneous vaginal delivery ().? P regnancy # 4: , Franklyn. 37w IUFD. P regnancy # 5: E DD = 12/17/2023 - Currently . * Surgical History: LEE 2016 Multiple Lithotripsy T&A [place] Teeth Extraction Lt Breast Lumpectomy umbilical hernia [...] Electronic signature of Wilmar Gibson APRN on 05/21/2025 at 08:42 AM EDT Sign off status: Pending Visit Status: R /S (Rescheduled) * Provider: Brodie Gibson APRN Date: 01/13/2025 Generated for Lluvia lewis/Rodolfo/Cortney on: 0 05/21/2025 08:42 AM EDT
--- OUTSIDE RECORDS SUMMARY | 2025-01-13 09:15 | XMS_ITS ---
Author Organization [facility] Address [address] [facility] [address] [place] [address] Care Team Providers Care Psychiatric Aide Instructor Name Role Phone Paige Chiqui Unavailable [phone] REASON FOR VISIT Nexplanon Insertion Social History Sex Assigned At : Social History Observation Description Sex Assigned At Female Encounters Encounter Location Date Provider Diagnosis [facility] [address] [facility] [address] [place] [address] 01/13/2025 Chiqui Gibson Plan Of Treatment Next Appt Details Provider Name:Aramis Felix, 04/26/2026 02:15:00 PM, [address] , [address], [place], [address], Progress Notes * Alysa MANCINI MDOB:02/1986 (39 yo F)Acc No.[id number]:01/13/2025 Progress Note Patient: Alysa Romero Provider: Brodie Gibson APRN :1985 A ge:39 Y S ex:Female Date:01/13/2025 Address:[address] [place], [place] [address] Subjective: * Chief Complaints: * N explanon Insertion * Electronic signature of Wilmar Gibson APRN on 05/21/2025 at 08:42 AM EDT Sign off status: Pending Visit Status: R /S (Rescheduled) * Provider: Brodie Gibson APRN Date: 0 01/13/2025 Generated for Lluvia lewis/Rodolfo/Colbyitting on: 0 05/21/2025 08:42 AM EDT
--- OUTSIDE RECORDS SUMMARY | 2025-03-26 11:45 | XMS_ITS ---
Author Organization [facility] Address [address] [facility] [address] [place] [address] Care Team Providers Care Sourcing Consultant Name Role Phone Chiqui Gibson Unavailable [phone] Shanda Carranza Unavailable [phone] REASON FOR VISIT Annual Medications Medication SIG [...] Female Encounters Encounter Location Date Provider Diagnosis [facility] [address] [facility] [address] [place] [address] 03/26/2025 Shanda Carranza Plan Of Treatment Next Appt Details Provider Name:Aramis Felix, 04/26/2026 02:15:00 PM, [address] [facility] [address], [address], Progress Notes * Alysa MANCINI MDOB:02/1986 (39 yo F)Acc No.[id number]:03/26/2025 Progress Note Patient: Alysa Romero Provider: Irving CARRANZA APRN :1985 A ge:39 Y S ex:Female Date:03/26/2025 Address:[address] [place] [address] Subjective: * Chief Complaints: * A nnual [...] Electronic signature of Shanda Carranza APRN on 05/21/2025 at 08:41 AM EDT Sign off status: Pending Visit Status: N /S (No-Show) * Provider: Irving CARRANZA APRN Date: 0 03/26/2025 Generated for Lluvia lewis/Rodolfo/Cortney on: 0 05/21/2025 08:41 AM EDT
--- OUTSIDE RECORDS SUMMARY | 2025-03-30 17:02 | XMS_ITS | Encounter Summary ---
Author Organization [facility] Address [address] [place] [address] Care Team Providers Care Florist Helper Name Role Phone Sandro Sebastian MD Primary Care Provider [phone] Reason for Visit * Reason Comments Anxiety Depression Suicidal Encounter Details Date Type Department Care Team (Latest Contact Info) Description 03/30/2025 5:02 PM EDT - 03/31/2025 9:59 AM EDT Hospital Encounter [facility] [place] [address] [place] [address] Osmel Medina MD [address] [place] [address] Unspecified mood (affective) disorder (CMS/HCC) (Primary Dx) Discharge Disposition: Home or Self Care Social History Tobacco Use Types Packs/Day Years Used Date Smoking Tobacco: Former Cigarettes Smokeless Tobacco: Never Alcohol Use Standard Drinks/Week Comments Never 0 (1 standard drink = 0.6 oz pure alcohol) Alcoholic Drinks/day: Minimum alcohol consumption PHQ-2 Answer Date Recorded Patient Health Questionnaire-2 Score 6 03/30/2025 PHQ-9 Answer Date Recorded Patient Health Questionnaire-9 Score 23 03/30/2025 PHQ-2A Answer Date Recorded Patient Health Questionnaire-2 Score 6 09/25/2022 Comments No Sex and Gender Information Value Date Recorded Sex Assigned at Not on file Legal Sex Female 8:15 PM EDT Gender Identity Not on file Sexual Orientation Not on file documented as of this encounter Last Filed Vital Signs Vital Sign Reading Time Taken Comments Blood Pressure 107/74 03/31/2025 8:29 AM EDT Pulse 74 03/31/2025 8:29 AM EDT Temperature 36.6 C (97.8 F) 03/31/2025 8:29 AM EDT Respiratory Rate 16 03/31/2025 8:29 AM EDT Oxygen Saturation 95% 03/31/2025 8:29 AM EDT Inhaled Oxygen Concentration - - Weight 53.3 kg (117 lb 9.6 oz) 03/30/2025 5:30 P M EDT Height 160 cm (5' 3 ) 03/30/2025 5:30 PM EDT Body Mass Index 20.83 03/30/2025 5:30 PM EDT documented in this encounter Functional Status * Over the past 2 weeks, how often have you been bothered by any of the following problems? Question Answer Date of Assessment Author Patient Health Questionnaire -2 Score 6 03/30/2025 5:44 PM EDT Betsy Ellsworth RN * Calculated C-SSRS Risk Score (Lifetime/Recent) Answer Date of Assessment Author Moderate Risk 03/31/2025 8:31 AM EDT Betsy Ellsworth RN * If you checked off any problems on this questionnaire, Question Answer Date of Assessment Author How difficult have these problems made it for you to do your work, take care of things at home, or get along with other people? Very difficult 03/30/2025 5:44 PM EDT Betsy Ellsworth RN * Over the past 2 weeks, how often have you been bothered by any of the following problems? Question Answer Date of Assessment Author Little interest or pleasure in doing things Nearly every day 03/30/2025 5:44 PM EDT Umang Ellsworth RN Feeling down, depressed, or hopeless Nearly every day 03/30/2025 5:44 PM EDT Betsy Ellsworth RN Trouble falling or staying asleep, or sleeping too much More than half the days 03/30/2025 5:44 PM EDT Betsy Ellsworth RN Feeling tired or having little energy Nearly every day 03/30/2025 5:44 PM EDT Betsy Ellsworth RN Poor appetite or overeating Nearly every day 03/30/2025 5:44 PM EDT Betsy Ellsworth RN Feeling bad about yourself - or that you are a failure or have let yourself or your family down Nearly every day 03/30/2025 5:44 PM EDT Betsy Ellsworth RN Trouble concentrating on things, such as reading the newspaper or watching television Nearly every day 03/30/2025 5:44 PM EDT Betsy Ellsworth RN Moving or speaking so slowly that other people could have noticed? Or the opposite - being so fidgety or restless that you have been moving around a lot more than usual. Several days 03/30/2025 5:44 PM EDT Betsy Ellsworth RN Thoughts that you would be better off or hurting yourself in some way More than half the days 03/30/2025 5:44 PM EDT Betsy Ellsworth RN Patient Health Questionnaire-9 Score 23 03/30/2025 5:44 PM EDT Betsy Ellsworth RN * Question Answer Date of Assessment Author 1. Wish to be (Past 1 Month) Yes 025 8:31 AM EDT Betsy Ellsworth RN 2. Non-Specific Active Suici jose Thoughts (Past 1 Month) Yes 03/31/2025 8:31 AM EDT Faiza Ellsworth RN 3. Active Suicidal Ideation with any Methods (Not Plan) Without Intent to Act (Past 1 Month) No 03/31/2025 8:31 AM VESTAT Betsy Ellsworth RN 4. Active Suicidal Ideation with Some Intent to Act, Without Specific Plan (Past 1 Month) No 03/31/2025 8:31 AM EDT Betsy Ellsworth RN 5. Active Suicidal Ideation with Specific Plan and Intent (Past 1 Month) No 03/31/2025 8:31 AM EDT Betsy Ellsworth RN 6. Suicidal Behavior (Lifetime) Yes 8:31 AM VESTAT Betsy Ellsworth RN 6. Suicidal Behavior (3 Months) No 8:31 AM EDT Betsy Ellsworth RN documented as of this encounter Medications at Time of Discharge Auvelity 45-105 MG tablet controlled-releas e Take 45 mg by mouth 2 (two) times a day. 06/18/2024 bisoprolol (Zebeta) 5 MG tablet Take 1 tablet (5 mg) by mouth daily. 90 tablet 3 11/03/2024 empagliflozin (Jardiance) 10 MG Take 1 tablet (10 mg) by mouth daily. 90 tablet 3 11/03/2024 glycopyrrolate (Robinul) 2 MG tablet Take 1 tablet (2 mg) by mouth 4 (four) times a day as needed. hydrOXYzine HCl (Atarax) 25 MG tablet TAKE 1 TABLET 3 TIMES EACH DAY NEEDED FOR ANXIETY 90 tablet 11/14/2022 hydrOXYzine HCl (Atarax) 50 MG tablet Take 1 tablet (50 mg) by mouth every 6 hours as needed. 10/07/2024 hydrOXYzine pamoate (Vistaril) 50 MG capsule Take 1 capsule (50 mg) by mouth 3 (three) times a day. 07/15/2023 iron sucrose 100 mg in sodium chloride 0.9 % 95 mL IVPB Infuse 100 mg into a venous catheter 1 (one) time per week at 100 mL/hr over 60 minutes. 1 each 3 11/27/2024 lamoTRIgine (LaMICtal) 100 MG tablet Take 1 tablet (100 mg) by mouth. 10/19/2024 lisinopril 2.5 MG tablet Take 1 tablet (2.5 mg) by mouth in the morning. 30 tablet 6 12/08/2024 Loratadine 10 MG capsule Take 10 mg by mouth 1 (one) time each day. LORazepam (Ativan) 1 MG tablet Take 1 tablet (1 mg) by mouth 3 (three) times a day. 09/13/2023 omeprazole (PriLOSEC) [address] capsule Take 1 capsule (40 mg) by mouth daily. 02/25/2024 spironolactone (Aldactone) 25 MG tablet Take 0.5 tablets (12.5 mg) by mouth daily. 90 tablet 3 11/03/2024 Tirzepatide-Weigh t Management (Zepbound) 2.5 MG/0.5ML solution auto-injector Inject under the skin. torsemide (Demadex) 5 MG tablet Take 1 tablet (5 mg) by mouth in the morning. 30 tablet 3 11/24/2024 documented as of this encounter Miscellaneous Notes * ED Notes - Betsy Ellsworth RN - 03/31/2025 9:59 AM EDT Pt d/c home w/ belongings and aftercare instructions. Pt had no further questions or concerns @ d/c. * Clinician Note - Cherry Amanda - 03/31/2025 9:21 AM EDT ALEXIA Amanda spoke with Alysa. ALEXIA explained collateral contact to Alysa, and at first she was willing to allow the SW to speak to her parents, who will be coming to get her, however she immediatelytook this permission away. Alysa explained to the SW that she will either be staying with her in-laws or parents for multiple days, that she has an upcoming therapy appointment this week and multiple close follow ups, that she is aware of her resources, and that she believes her symptomology comes from using kratom for a period of three weeks and she has discontinued this. She reported no SI or HI and seemed very linear with a solid plan for safety. * Discharge Summary - Kaushik Leblanc APRN - 03/31/2025 9:01 AM EDT Images from the original note were not included. [facility] Discharge Summary Hospitalization Admit Date/Time: 03/30/2025 5:02 PM Admitting Attending: Dr. Medina Discharge Date: 03/31/25 Discharge Attending Physician: Osmel Medina MD PCP name and Address: Sandro Sebastian MD [facility] [address] Chief Concern, Brief History of Present Illness, and Hospital Course Alysa Mancini is a 39 y.o. female presenting via private vehicle with anxiety. Patient reports she has history of severe anxiety, severe depression, panic disorder, OCD, PTSD. She sees a provider who prescribes her numerous medications for these conditions. Patient states that for 3-4 weeks she had started using Kratom very heavily and felt she had become addicted. She then abruptly stopped Kratom last week. She felt like she was experiencing delirium tremens for 1 week. She started feeling better this weekend, then yesterday she awoke from a nap and suddenly felt intenseanxiety. This anxiety has persisted since then. She is having difficulty focusing. She feels impaired to thepoint she cannot care for her children. She is fearful that the Kratom has permanently altered her brain and she will not return back to her prior state. Patient reports that prior to the Kratom use,she felt things had been going well - she had hope for the future and was going to go back to AA (orantes s not used alcohol in 1 year). Patient is concerned about her anxiety, stating the last time she felt this anxious, she attempted suicide via wrapping a scarf around her neck and hanging from a door handle (2021 or ). She was also intoxicated at that time. She states she currently wishes she were , or that her heart wouldkill her, but she does not want to kill herself. She attributes this to fear of dying and strong adventist angela. Patient is requesting medication changes or increases to get through this period of anxiety. She states her outpatient prescriber told her to start taking 200 mg TID of hydroxyzine, starting yesterday. She is fearful we will not help her, as she feels she has not been listened to by providers in the past. Pt mood has remained stable during [facility] stay with continued anxiety. Pt slept well overnight, compliant with home medications. Extensive discussion on de- prescribing of medications for anxiety control as well as discussion on other possible causes of uncontrolled anxiety. Rule out personality/ cluster b traits. Per chart review pt was seen for Endocrinology consult on 05/08/18 for hyperhidrosis with discussion on possible organic physiological causes that could also be contributing to uncontrolled anxiety and other symptoms she is experiencing however pt left prior to having labs drawn. Per chart review there was no further follow up with endocrinology. Discussed that pt would need to reach out to her PCP for further workup on possible organic physiological causes of multiple symptoms. Pt denies SI/HI/AVH and reports mood is still anxious at discharge. Pt is linear, goal directed, future oriented and verbalizes readiness for discharge. Pt reports she has an upcoming therapy appt onSunday and plans to attend. SW has confirmed with pt that she can return home. Medication List . Auvelity 45-105 MG tablet controlled-release Generic drug: Dextromethorphan-buPROPion ER Take 45 mg by mouth 2 (two) times a day. bisoprolol 5 MG tablet Commonly known as: Zebeta Take 1 tablet (5 mg) by mouth daily. empagliflozin 10 MG Commonly known as: Jardiance Take 1 tablet (10 mg) by mouth daily. glycopyrrolate 2 MG tablet Commonly known as: Robinul Take 1 tablet (2 mg) by mouth 4 (four) times a day as needed. * hydrOXYzine HCl 25 MG tablet Commonly known as: Atarax TAKE 1 TABLET 3 TIMES EACH DAY NEEDED FOR ANXIETY * hydrOXYzine HCl 50 MG tablet Commonly known as: Atarax Take 1 tablet (50 mg) by mouth every 6 hours as needed. hydrOXYzine pamoate 50 MG capsule Commonly known as: Vistaril Take 1 capsule (50 mg) by mouth 3 (three) times a day. iron sucrose 100 mg in sodium chloride 0.9 % 95 mL IVPB Infuse 100 mg into a venous catheter 1 (one) time per week at 100 mL/hr over 60 minutes. lamoTRIgine 100 MG tablet Commonly known as: LaMICtal Take 1 tablet (100 mg) by mouth. lisinopril 2.5 MG tablet Take 1 tablet (2.5 mg) by mouth in the morning. Loratadine 10 MG capsule Take 10 mg by mouth 1 (one) time each day. LORazepam 1 MG tablet Commonly known as: Ativan Take 1 tablet (1 mg) by mouth 3 (three) times a day. omeprazole [address] capsule Commonly known as: PriLOSEC Take 1 capsule (40 mg) by mouth daily. spironolactone 25 MG tablet Commonly known as: Aldactone Take 0.5 tablets (12.5 mg) by mouth daily. torsemide 5 MG tablet Commonly known as: Demadex Take 1 tablet (5 mg) by mouth in the morning. traZODone 50 MG tablet Commonly known as: Desyrel Take 3 tablets (150 mg total) by mouth every night. Zepbound 2.5 MG/0.5ML solution auto-injector Generic drug: Tirzepatide-Weight Management Inject under the skin. * This list has 2 medication(s) that are the same as other medications prescribed for you. Read thedirections carefully, and ask your doctor or other care provider to review them with you. Discharge Diagnosis Final diagnoses: [F39] Unspecified mood (affective) disorder (CMS/HCC) - Pt does not meet 202A criteria, appropriate to dc at this time. SW has confirmed with pt she can return home. - Stable at discharge. Denies SI/HI/AVH or any other associated s/s. - Recommend f/u with outside mental health provider within 72hrs of d/c. - recommend complete cessation of mood altering substances. - Continue home medications as directed. No refills needed today. Post Discharge Instructions Follow-Up / Post Discharge Instructions You are being discharged to Home. You should keep all scheduled follow up outpatient appointments for continued care. We strongly encourage you to keep all future appointments and advised to take all prescribed medications as instructed. You should abstain from all mood-altering substances except those prescribed by a licensed practical nurse. Your primary supports should monitor you for evidence of substance use and should alert your outpatient provider if use is suspected or confirmed. Your safety plan includes instructions to return to [facility] or the nearest ER if you become suicidal, homicidal, manic, psychotic, or develop any other urgent/emergent symptoms, or to call [phone]. Veterans call [phone] then Press 1. You voiced an understanding of the safety plan., but are welcome to ask questions at any time Disposition Discharge Provider Care Team: ALMAS Ospina [[id number]] Are they the primary team?: Yes [1] Outpatient Follow-Up Future Appointments Date Time Provider Department Center 05/07/2025 1:00 PM [facility] Test Results At Discharge Pending: n/a Recent Results (from the past 24 hours) POCT Drugs of Abuse Collection Time: 03/30/25 5:56 PM Result Value Ref Range POC Amphetamine Screen, Urine Negative Negative POC Amphetamine Internal QC OK? Yes Positive results should be sent to laboratory for confirmation. POC Barbiturate Screen, Urine Negative Negative POC Barbiturates Internal QC OK? Yes Positive results should be sent to laboratory for confirmation. POC Buprenorphine Screen, Urine Negative Negative POC Buprenorphine Internal QC OK? Yes Positive results should be sent to laboratory for confirmation. POC Benzodiazepines Screen, Urine Presumptive Positive (A) Negative POC Benzodiazepines Internal QC OK? Yes Positive results should be sent to laboratory for confirmation. POC Cocaine Screen, Urine Negative Negative POC Cocaine Internal QC OK? Yes Positive results should be sent to laboratory for confirmation. POC Methamphetamine Screen, Urine Negative Negative POC Methamphetamine Internal QC OK? Yes Positive results should be sent to laboratory for confirmation. POC Methadone Screen, Urine Negative Negative POC Methadone Internal QC OK? Yes Positive results should be sent to laboratory for confirmation. POC Opiate Screen, Urine Negative Negative POC Opiates Internal QC OK? Yes Positive results should be sent to laboratory for confirmation. POC Oxycodone Screen, Urine Negative Negative POC Oxycodone Internal QC OK? Yes Positive results should be sent to laboratory for confirmation. POC THC Screen, Urine Presumptive Positive (A) Negative POC THC Internal QC OK? Yes Positive results should be sent to laboratory for confirmation. POC Urine Temperature Normal Normal POC UDS Kit Lot Number [id number] POC UDS Kit Expiration 08-09-2026 POC UDS Collection Observed? Not Observed POCT Urine Collection Time: 03/30/25 5:56 PM Result Value Ref Range Urine - Point of Care Negative Negative - women after 7 weeks gestation and dilute urine (specific gravity <1.010) may have false negative results. Plasma HCG testing is recommended. Test performed at Point of Care. INTERNAL QC OK, PREG URINE y KIT LOT NUMBER, PREG URINE [id number] KIT EXPIRATION DATE, PREG URINE 09-27-2025 CBC and Differential Collection Time: 03/30/25 7:10 PM Result Value Ref Range WBC Count 4.10 3.70 - 10.30 10*3/uL RBC Count 4.88 3.90 - 5.20 10*6/uL HGB 13.0 11.2 - 15.7 g/dL HCT 39.5 34.0 - 45.0 % Platelet Count 197 155 - 369 10*3/uL MCV 81 79 - 98 fL MCH 26.6 26.0 - 32.0 pg MCHC 32.9 30.7 - 35.5 g/dL RDW 13.0 11.5 - 14.5 % MPV 11.2 8.8 - 12.5 fL nRBC 0.0 <=0.0 per 100 WBCs Differential Type Automated Neutrophils % 54 % Lymphocytes % 34 % Monocytes % 7 % Eosinophils % 4 % Basophils % 1 % Immature Granulocytes % 0 % Neutrophils Absolute 2.21 1.60 - 6.10 10*3/uL Lymphocytes Absolute 1.40 1.20 - 3.90 10*3/uL Monocytes Absolute 0.28 (L) 0.30 - 0.90 10*3/uL Eosinophils Absolute 0.17 0.00 - 0.50 10*3/uL Basophils Absolute 0.03 0.00 - 0.10 10*3/uL Immature Granulocytes Absolute 0.01 0.00 - 0.06 10*3/uL CMP Collection Time: 03/30/25 7:10 PM Result Value Ref Range Glucose, Plasma 89 74 - 99 mg/dL BUN, Plasma 7 7 - 21 mg/dL Creatinine, Plasma 0.88 0.60 - 1.10 mg/dL BUN/Creatinine Ratio 8 Sodium, Plasma 136 136 - 145 mmol/L Potassium, Plasma 3.2 (L) 3.6 - 4.9 mmol/L Chloride, Plasma 103 97 - 107 mmol/L CO2, Plasma 23 22 - 29 mmol/L Anion Gap 10 6 - 16 mmol/L Total Calcium, Plasma 8.7 (L) 8.9 - 10.2 mg/dL Total Protein 5.9 (L) 6.3 - 7.9 g/dL Albumin, Plasma 3.7 3.5 - 5.2 g/dL AST, Plasma 16 10 - 35 U/L ALT, Plasma 12 10 - 35 U/L Alkaline Phosphatase, Plasma 45 35 - 104 U/L Total Bilirubin, Plasma 0.4 0.2 - 1.1 mg/dL eGFRcr 86.9 mL/min/1.73m*2 TSH Reflex FT4 Collection Time: 03/30/25 7:10 PM Result Value Ref Range Thyroid Stimulating Hormone, Plasma 0.59 0.40 - 4.20 uIU/mL Hepatitis C Antibody with Reflex to HCV Quant PCR - [facility] Collection Time: 03/30/25 8:56 PM Result Value Ref Range Hepatitis C Antibody Negative Negative HIV 1 & 2 Antibody/Antigen Screen Collection Time: 03/30/25 9:05 PM Result Value Ref Range HIV 1 & 2 Antibody/Antigen Screen Non Reactive Non Reactive Hepatitis B Surface Antigen - [facility] Collection Time: 03/30/25 10:03 PM Result Value Ref Range Hepatitis B Surf Antigen Negative Negative Pertinent Mental Status At Time of Discharge: Mental Status Evaluation: Appearance: appears stated age, wearing street clothes, good hygiene Attitude: cooperative, interested in treatment Eye Contact: appropriate Speech: appropriate rate and volume, non-pressured Involuntary Movements: absent Psychomotor Activity: no significant depression or agitation Level of Consciousness: alert and attentive Memory: grossly intact Mood: still anxious Affect: congruent with stated mood, full range, anxious Thought Process: linear, organized, goal-directed Thought Content: no overt delusions, not responding to internal stimuli AVH: denied SI: denied HI: denied Insight: poor Judgment: poor Calculated C-SSRS Risk Score (Lifetime/Recent): Moderate Risk Discharge Disposition/Condition Disposition: Home Condition: Stable (s/sx potential problems absent or manageable) Case discussed with Dr. Medina and he is agreeable with discharge. I spent >30 minutes of patient care and instruction time in preparation for this discharge. Cosigned by Osmel Medina MD at 03/31/2025 11:08 AM EDT Associated attestation - Osmel Medina MD - 03/31/2025 11:08 AM EDT The patient was seen only by Advanced Practice Provider (ENZO). I spent 0 minutes of patient care and instruction time in preparation for this discharge. * Progress Notes - Myrna Moreira APRN - 03/31/2025 5:44 AM EDT [facility] Progress Note I received sign-out and accepted care of this patient from the departing providers ISRAEL Deras at 2100 hour. Please see the primary providers' note for complete elements of the history, physical exam, and ED course. Problem List[1] Results: Recent Results (from the past 24 hours) POCT Drugs of Abuse Collection Time: 03/30/25 5:56 PM Result Value Ref Range POC Amphetamine Screen, Urine Negative Negative POC Amphetamine Internal QC OK? Yes Positive results should be sent to laboratory for confirmation. POC Barbiturate Screen, Urine Negative Negative POC Barbiturates Internal QC OK? Yes Positive results should be sent to laboratory for confirmation. POC Buprenorphine Screen, Urine Negative Negative POC Buprenorphine Internal QC OK? Yes Positive results should be sent to laboratory for confirmation. POC Benzodiazepines Screen, Urine Presumptive Positive (A) Negative POC Benzodiazepines Internal QC OK? Yes Positive results should be sent to laboratory for confirmation. POC Cocaine Screen, Urine Negative Negative POC Cocaine Internal QC OK? Yes Positive results should be sent to laboratory for confirmation. POC Methamphetamine Screen, Urine Negative Negative POC Methamphetamine Internal QC OK? Yes Positive results should be sent to laboratory for confirmation. POC Methadone Screen, Urine Negative Negative POC Methadone Internal QC OK? Yes Positive results should be sent to laboratory for confirmation. POC Opiate Screen, Urine Negative Negative POC Opiates Internal QC OK? Yes Positive results should be sent to laboratory for confirmation. POC Oxycodone Screen, Urine Negative Negative POC Oxycodone Internal QC OK? Yes Positive results should be sent to laboratory for confirmation. POC THC Screen, Urine Presumptive Positive (A) Negative POC THC Internal QC OK? Yes Positive results should be sent to laboratory for confirmation. POC Urine Temperature Normal Normal POC UDS Kit Lot Number [id number] POC UDS Kit Expiration 08-09-2026 POC UDS Collection Observed? Not Observed POCT Urine Collection Time: 03/30/25 5:56 PM Result Value Ref Range Urine - Point of Care Negative Negative - women after 7 weeks gestation and dilute urine (specific gravity <1.010) may have false negative results. Plasma HCG testing is recommended. Test performed at Point of Care. INTERNAL QC OK, PREG URINE y KIT LOT NUMBER, PREG URINE [id number] KIT EXPIRATION DATE, PREG URINE 09-27-2025 CBC and Differential Collection Time: 03/30/25 7:10 PM Result Value Ref Range WBC Count 4.10 3.70 - 10.30 10*3/uL RBC Count 4.88 3.90 - 5.20 10*6/uL HGB 13.0 11.2 - 15.7 g/dL HCT 39.5 34.0 - 45.0 % Platelet Count 197 155 - 369 10*3/uL MCV 81 79 - 98 fL MCH 26.6 26.0 - 32.0 pg MCHC 32.9 30.7 - 35.5 g/dL RDW 13.0 11.5 - 14.5 % MPV 11.2 8.8 - 12.5 fL nRBC 0.0 <=0.0 per 100 WBCs Differential Type Automated Neutrophils % 54 % Lymphocytes % 34 % Monocytes % 7 % Eosinophils % 4 % Basophils % 1 % Immature Granulocytes % 0 % Neutrophils Absolute 2.21 1.60 - 6.10 10*3/uL Lymphocytes Absolute 1.40 1.20 - 3.90 10*3/uL Monocytes Absolute 0.28 (L) 0.30 - 0.90 10*3/uL Eosinophils Absolute 0.17 0.00 - 0.50 10*3/uL Basophils Absolute 0.03 0.00 - 0.10 10*3/uL Immature Granulocytes Absolute 0.01 0.00 - 0.06 10*3/uL CMP Collection Time: 03/30/25 7:10 PM Result Value Ref Range Glucose, Plasma 89 74 - 99 mg/dL BUN, Plasma 7 7 - 21 mg/dL Creatinine, Plasma 0.88 0.60 - 1.10 mg/dL BUN/Creatinine Ratio 8 Sodium, Plasma 136 136 - 145 mmol/L Potassium, Plasma 3.2 (L) 3.6 - 4.9 mmol/L Chloride, Plasma 103 97 - 107 mmol/L CO2, Plasma 23 22 - 29 mmol/L Anion Gap 10 6 - 16 mmol/L Total Calcium, Plasma 8.7 (L) 8.9 - 10.2 mg/dL Total Protein 5.9 (L) 6.3 - 7.9 g/dL Albumin, Plasma 3.7 3.5 - 5.2 g/dL AST, Plasma 16 10 - 35 U/L ALT, Plasma 12 10 - 35 U/L Alkaline Phosphatase, Plasma 45 35 - 104 U/L Total Bilirubin, Plasma 0.4 0.2 - 1.1 mg/dL eGFRcr 86.9 mL/min/1.73m*2 TSH Reflex FT4 Collection Time: 03/30/25 7:10 PM Result Value Ref Range Thyroid Stimulating Hormone, Plasma 0.59 0.40 - 4.20 uIU/mL Hepatitis C Antibody with Reflex to HCV Quant PCR - [facility] Collection Time: 03/30/25 8:56 PM Result Value Ref Range Hepatitis C Antibody Negative Negative HIV 1 & 2 Antibody/Antigen Screen Collection Time: 03/30/25 9:05 PM Result Value Ref Range HIV 1 & 2 Antibody/Antigen Screen Non Reactive Non Reactive Hepatitis B Surface Antigen - [facility] Collection Time: 03/30/25 10:03 PM Result Value Ref Range Hepatitis B Surf Antigen Negative Negative Interventions: Monitored in a supportive environment. Was anxious earlier about getting the appropriate medications. A lot of time spent reviewing her dispense report and it does appear as though charan had prescriptions filled on 03/30/25 and then came in. At the time, it was felt she was lookingfor more medication as she didn't feel hers were working. Active Problems: Unspecified mood (affective) disorder (CMS/HCC) CGI Status: Compared to patient's condition on admission, how much has the patient's condition changed? 0= Not Assessed; 1= Very much improved; 2= Much improved; 3= Minimally improved; 4= No change; 5= Minimally worse; 6= Much worse; 7= Very much worse Plan 3 Continue to monitor and provide support. Given the exceptional amount of medication she is on at this time, it is unlikely adding more medicine is going to be the most appropriate course of treatment. When she is awake, would benefit from a jeff discussion regarding therapy needs as opposed to continuing to focus on medications as they don't seem to be effective. If medications changes are made, would recommend decreasing or discontinuing meds before I would consider the addition of anythingelse. Recommend revaluation within 4 hours. [1] Patient Active Problem List Diagnosis Iron deficiency anemia Unspecified mood (affective) disorder (CMS/HCC) * ED Triage Notes - Betsy Ellsworth RN - 03/30/2025 4:44 PM EDT Pt arrived to [facility] voluntarily w/ c/o worsening depression, anxiety and SI. Pt shared that she has suffered with her mental health since she was 13 y/o. Pt has a hx of anxiety, depression, ptsd, and alcoholism. Pt has been sober from alcohol for >1yr. Pt has a medical marijuana card and sharedthat she recently used kratom and became addicted . Since using the kratom she feels as if she has messed her brain up permanently and is really struggling and wants to . Pt states, I am very adventist and I want to but don't want to kill myself. However Sep 26 2022 pt hung herself fromher door knob with a scarf because she couldn't live with the anxiety. Pt started ketamine trt in oct 2022, completed 10 rounds and it helped her significantly. Pt sees a counselor through [facility] once weekly. Pt had a stillborn 4 years ago. Pt was very forthcoming with information butvery tearful and anxious. Pt states that she has had a bad experience w/ healthcare professionals because she feels they don't take her seriously. Pt has CHF and has a pacemaker & @ times wishes her heart would stop because its too much to handle. * ED Provider Notes - Yadi Tuttle MD - 03/30/2025 4:43 PM EDT [facility] Initial Eval Chief Concern & History Of Present Illness Alysa Mancini is a 39 y.o. female presenting via private vehicle with anxiety. Patient reports she has history of severe anxiety, severe depression, panic disorder, OCD, PTSD. She sees a provider who prescribes her numerous medications for these conditions. Patient states that for 3-4 weeks she had started using Kratom very heavily and felt she had become addicted. She then abruptly stopped Kratom last week. She felt like she was experiencing delirium tremens for 1 week. She started feeling better this weekend, then yesterday she awoke from a nap and suddenly felt intenseanxiety. This anxiety has persisted since then. She is having difficulty focusing. She feels impaired to thepoint she cannot care for her children. She is fearful that the Kratom has permanently altered her brain and she will not return back to her prior state. Patient reports that prior to the Kratom use,she felt things had been going well - she had hope for the future and was going to go back to AA (has not used alcohol in 1 year). Patient is concerned about her anxiety, stating the last time she felt this anxious, she attempted suicide via wrapping a scarf around her neck and hanging from a door handle (2021 or ). She was also intoxicated at that time. She states she currently wishes she were , or that her heart wouldkill her, but she does not want to kill herself. She attributes this to fear of dying and strong adventist angela. Patient is requesting medication changes or increases to get through this period of anxiety. She states her outpatient prescriber told her to start taking 200 mg TID of hydroxyzine, starting yesterday. She is fearful we will not help her, as she feels she has not been listened to by providers in the past. DASA Score:: 0 Past Medical and Surgical History not significant other than heart failure (Takatsubo cardiomyopathy) s/p ICD and pacemaker. Hyperhydrosis, cushingoid facies. Allergies Farxiga [dapagliflozin], Penicillins, and Toprol xl [metoprolol] Medications Current Medications[1] Medication bottles were reviewed with patient: - Gabapentin 300 mg QAM, 100-200 mg at bedtime - Jardiance 10 mg daily - Omeprazole 40 mg daily - Trazodone 50 mg at bedtime prn - Loratadine 10 mg - has not taken for 2 weeks - Glycopyrolate 2 mg QID prn - Lorazapam 1 mg TID - Buspirone 30 mg BID - Hydroxyzine 50 mg BID PRN, recently told to increase to 200 mg PRN - Auvelity 45/105 BID Review of Systems Neurological: Positive for difficulty with concentration. Psych Review of Symptoms: Anxiety: Generalized Anxiety Symptoms: Difficulty controlling worry, excessive worry, difficulty with concentration and physiological symptoms of anxiety. Depressive Symptoms: Depressed mood and suicidal ideation. Eating / Feeding Concerns: Poor appetite. Psychotic Symptoms: Hallucination types are negative for auditory and visual. Pertinent Physical Exam findings: Physical Exam Vitals reviewed. HENT: Head: Normocephalic and atraumatic. Eyes: Extraocular Movements: Extraocular movements intact. Conjunctiva/sclera: Conjunctivae normal. Cardiovascular: Comments: Appears well-perfused, no LE edema Pulmonary: Effort: Pulmonary effort is normal. No respiratory distress. Abdominal: General: Abdomen is flat. Skin: General: Skin is warm. Neurological: Mental Status: She is alert. First Recorded Vitals ED Triage Vitals [03/30/25 4609] Temp Heart Rate Resp BP 36.4 ??C (97.6 ??F) (!) 118 -- 98/70 SpO2 Temp src Heart Rate Source Patient Position 94 % -- -- -- BP Location FiO2 (%) -- -- Labs Recent Results (from the past 24 hours) POCT Drugs of Abuse Collection Time: 03/30/25 5:56 PM Result Value Ref Range POC Amphetamine Screen, Urine Negative Negative POC Amphetamine Internal QC OK? Yes Positive results should be sent to laboratory for confirmation. POC Barbiturate Screen, Urine Negative Negative POC Barbiturates Internal QC OK? Yes Positive results should be sent to laboratory for confirmation. POC Buprenorphine Screen, Urine Negative Negative POC Buprenorphine Internal QC OK? Yes Positive results should be sent to laboratory for confirmation. POC Benzodiazepines Screen, Urine Presumptive Positive (A) Negative POC Benzodiazepines Internal QC OK? Yes Positive results should be sent to laboratory for confirmation. POC Cocaine Screen, Urine Negative Negative POC Cocaine Internal QC OK? Yes Positive results should be sent to laboratory for confirmation. POC Methamphetamine Screen, Urine Negative Negative POC Methamphetamine Internal QC OK? Yes Positive results should be sent to laboratory for confirmation. POC Methadone Screen, Urine Negative Negative POC Methadone Internal QC OK? Yes Positive results should be sent to laboratory for confirmation. POC Opiate Screen, Urine Negative Negative POC Opiates Internal QC OK? Yes Positive results should be sent to laboratory for confirmation. POC Oxycodone Screen, Urine Negative Negative POC Oxycodone Internal QC OK? Yes Positive results should be sent to laboratory for confirmation. POC THC Screen, Urine Presumptive Positive (A) Negative POC THC Internal QC OK? Yes Positive results should be sent to laboratory for confirmation. POC Urine Temperature Normal Normal POC UDS Kit Lot Number [id number] POC UDS Kit Expiration 08-09-2026 POC UDS Collection Observed? Not Observed POCT Urine Collection Time: 03/30/25 5:56 PM Result Value Ref Range Urine - Point of Care Negative Negative - women after 7 weeks gestation and dilute urine (specific gravity <1.010) may have false negative results. Plasma HCG testing is recommended. Test performed at Point of Care. INTERNAL QC OK, PREG URINE y KIT LOT NUMBER, PREG URINE [id number] KIT EXPIRATION DATE, PREG URINE 09-27-2025 PSYCH Hx: Diagnoses: Anxiety, PTSD, depression, panic disorder, OCD Medications: see above. History of ketamine infusions Hospitalizations: 3 prior Suicide attempts: 1 Trauma hx: Yes Substance use: - Cannabis daily with medical card for anxiety - Kratom, last used just over 1 week ago - Alcohol: has not used in 1 year MENTAL STATUS EXAM: Mental Status Evaluation: Appearance: Appears stated age, casually dressed Behavior: Cooperative Speech: Normal rate and volume Mood: Anxious Affect: Anxious, at times tearful Thought Process: Circumstantial, would lose train of thought Thought Content: Delusions: No Hallucinations: No Homicidal: No Obsessions: No Suicidal: Passive Plan/Implementation related to SI: none Sensorium: Grossly intact Cognition: grossly intact Insight: fair Judgment: limited Problem based Plan and Disposition: #Anxiety unspecified - Acute on chronic presentation. Differential include generalized anxiety disorder, kratom withdrawal, medication induced (in setting of polypharmacy). - Given her history of cardiomyopathy, hyperhydrosis, severe anxiety that has been refractory to other medications, medical causes, such as pheochromocytoma could be considered. Possibly refer to Endocrinology upon discharge (she has followed with [facility]) - Restart home medications (Auvelity not on formulary, started wellbutrin during admission). Will refrain from starting new medications due to high concern for polypharmacy. - Discussed with patient that chronic anxiety likely best managed with anxiety. Set expectations that further medications changes may not be beneficial. - Counseled on decreasing hydroxyzine from 200 to 50 mg PRN due to risk for delirium #Heart failure - Jardiance held due to not on formulary #Hyperhydrosis - Glycopyrrolate not on formulary Recommend revaluation within 6-8 hours. [1] Current Facility-Administered Medications Medication Dose Route Frequency Provider Last Rate Last Admin acetaminophen (Tylenol) tablet 650 mg 650 mg Oral q6h PRN Yadi Tuttle MD aluminum & magnesium hydroxide-simethicone (Mylanta) 200-200-20 MG/5ML oral suspension 10 mL 10mL Oral q6h PRN Yadi Tuttle MD [START ON 03/31/2025] buPROPion XL (Wellbutrin XL) 24 hr tablet 150 mg 150 mg Oral Daily Yadi Tuttle MD busPIRone (Buspar) tablet 30 mg 30 mg Oral BID Yadi Tuttle MD gabapentin (Neurontin) capsule 100 mg 100 mg Oral Nightly Yadi Tuttle MD And [START ON 03/31/2025] gabapentin (Neurontin) capsule 300 mg 300 mg Oral Daily Yadi Tuttle MD hydrOXYzine pamoate (Vistaril) capsule 50 mg 50 mg Oral TID PRN Yadi Tuttle MD LORazepam (Ativan) tablet 1 mg 1 mg Oral TID Yadi Tuttle MD 1 mg at 03/30/251813 magnesium hydroxide (Milk of Magnesia) 400 MG/5ML suspension 10 mL 10 mL Oral Daily PRN Yadi Tuttle MD [START ON 03/31/2025] pantoprazole (Protonix) EC tablet 40 mg 40 mg Oral Daily before breakfast Yadi Tuttle MD traZODone (Desyrel) tablet 50 mg 50 mg Oral Nightly Yadi Tuttle MD Current Outpatient Medications Medication Sig Dispense Refill Auvelity 45-105 MG tablet controlled-release Take 45 mg by mouth 2 (two) times a day. bisoprolol (Zebeta) 5 MG tablet Take 1 tablet (5 mg) by mouth daily. 90 tablet 3 empagliflozin (Jardiance) 10 MG Take 1 tablet (10 mg) by mouth daily. 90 tablet 3 glycopyrrolate (Robinul) 2 MG tablet Take 1 tablet (2 mg) by mouth 4 (four) times a day as needed. hydrOXYzine HCl (Atarax) 25 MG tablet TAKE 1 TABLET 3 TIMES EACH DAY NEEDED FOR ANXIETY 90 tablet 0 hydrOXYzine HCl (Atarax) 50 MG tablet Take 1 tablet (50 mg) by mouth every 6 hours as needed. hydrOXYzine pamoate (Vistaril) 50 MG capsule Take 1 capsule (50 mg) by mouth 3 (three) times a day. iron sucrose 100 mg in sodium chloride 0.9 % 95 mL IVPB Infuse 100 mg into a venous catheter 1 (one) time per week at 100 mL/hr over 60 minutes. 1 each 3 lamoTRIgine (LaMICtal) 100 MG tablet Take 1 tablet (100 mg) by mouth. lisinopril 2.5 MG tablet Take 1 tablet (2.5 mg) by mouth in the morning. 30 tablet 6 Loratadine 10 MG capsule Take 10 mg by mouth 1 (one) time each day. LORazepam (Ativan) 1 MG tablet Take 1 tablet (1 mg) by mouth 3 (three) times a day. omeprazole (PriLOSEC) [address] capsule Take 1 capsule (40 mg) by mouth daily. spironolactone (Aldactone) 25 MG tablet Take 0.5 tablets (12.5 mg) by mouth daily. 90 tablet 3 Tirzepatide-Weight Management (Zepbound) 2.5 MG/0.5ML solution auto-injector Inject under the skin. torsemide (Demadex) 5 MG tablet Take 1 tablet (5 mg) by mouth in the morning. 30 tablet 3 traZODone (Desyrel) 50 MG tablet Take 3 tablets (150 mg total) by mouth every night. 90 tablet 1 Yadi Tuttle MD Resident 03/30/251925 Cosigned by Osmel Medina MD at 03/31/2025 11:08 AM EDT Associated attestation - Osmel Medina MD - 03/31/2025 11:08 AM EDT Seen by resident only. documented in this encounter Plan of Treatment Upcoming Encounters Date Type Department Care Team ([facility] st Contact Info) Description 06/03/2025 3:30 PM EDT Appointment Medical Office Building Cardiac Diagnostic Testing Medical Office Building Echo Lab [address], [address] [place] [address] documented as of this encounter Procedures Procedure Name Priority Date/Time Associated Diagnosis Comments HEPATITIS B SURFACE ANTIGEN - [facility] STAT 03/30/2025 10:03 PM EDT HIV 1/2 ANTIBODY/ANTIGEN SCREEN W/REFLEX TO HIV 1/2 ANTIBODY DIFFERENTIATION STAT 03/30/2025 9:05 PM EDT HIV 1/2 ANTIBODY/ANTIGEN SCREEN WITH REFLEX TO HIV I/II DIFFERENTIATION STAT 03/30/2025 9:05 PM EDT HEPATITIS C ANTIBODY WITH REFLEX TO HCV QUANT PCR - [facility] STAT 03/30/2025 8:56 PM EDT TSH REFLEX FT4 STAT 03/30/2025 7:10 PM EDT CBC WITH AUTO DIFFERENTIAL STAT 03/30/2025 7:10 PM EDT COMPREHENSIVE METABOLIC PANEL, PLASMA STAT 03/30/2025 7:10 PM EDT POCT DRUGS OF ABUSE, URINE STAT 03/30/2025 5:56 PM EDT POCT , URINE STAT 03/30/2025 5:56 PM EDT documented in this encounter Results * Hepatitis B Surface Antigen - [facility] (03/30/2025 10:03 PM EDT) Hepatitis B Surf Antigen Negative Negative 03/30/2025 10:03 PM EDT [facility] Blood Venous blood specimen / Unknown 03/30/2025 6:27 PM EDT Osmel Medina MD LAB BLOOD ORDERABLES Final Re sult Performing Organization Address [facility]/ZIP Co de Phone Number [facility] [address] [place] [address] * HIV 1 & 2 Antibody/Antigen Screen (03/30/2025 9:05 PM EDT) [facility] HIV 1 & 2 Antibody/Antigen Screen Non Reactive Non Reactive 03/30/2025 9:05 PM EDT [facility] Comment:Screening for HIV 1 & 2 antibodies, and P24 antigen is NONREACTIVE. No confirmatory testing is required. Blood Venous blood specimen / Unknown 03/30/2025 6:27 PM EDT Osmel Medina MD LAB BLOOD ORDERABLES Final Re sult Performing Organization Address [facility]/ZIP Co de Phone Number [facility] [address] [place] [address] * Hepatitis C Antibody with Reflex to HCV Quant PCR - [facility] (03/30/2025 8:56 PM EDT) Hepatitis C Antibody Negative Negative 03/30/2025 8:56 PM EDT [facility] Blood Venous blood specimen / Unknown 03/30/2025 6:27 PM EDT us Osmel Medina MD LAB BLOOD ORDERABLES Final Re sult [facility] [address] [place] [address] * TSH Reflex FT4 (03/30/2025 7:10 PM EDT) Pathologist [facility] Thyroid Stimulating Hormone, Plasma 0.59 0.40 - 4.20 uIU/mL 03/30/2025 8:52 PM EDT [facility] Blood Venous blood specimen / Unknown Venipuncture / Unknown 03/30/2025 7:10 PM EDT 03/30/2025 7:10 PM EDT Narrative [facility] - 03/30/2025 8:52 PM EDT Trimester Specific Ranges TSH ( IU/mL) 1st Trimester 0.1 - 3.0 2nd Trimester 0.19 - 4.06 3rd Trimester 0.3 - 3.7 Osmel Medina MD LAB BLOOD ORDERABLES Final Re sult Performing Organization Address [facility]/ZIP Co de Phone Number [facility] [address] [place] [address] * (ABNORMAL) CMP (03/30/2025 7:10 PM EDT) [facility] Glucose, Plasma 89 74 - 99 mg/dL 03/30/2025 8:52 PM EDT [facility] BUN, Plasma 7 7 - 21 mg/dL 03/30/2025 8:52 PM EDT [facility] Creatinine, Plasma 0.88 0.60 - 1.10 mg/dL 03/30/2025 8:52 PM EDT [facility] BUN/Creatinine Ratio 8 03/30/2025 8:52 PM EDT [facility] Sodium, Plasma 136 136 - 145 mmol/L 03/30/2025 8:52 PM EDT [facility] Potassium, Plasma 3.2(L) 3.6 - 4.9 mmol/L 03/30/2025 8:52 PM EDT [facility] Chloride, Plasma 103 97 - 107 mmol/L 03/30/2025 8:52 PM EDT [facility] CO2, Plasma 23 22 - 29 mmol/L 03/30/2025 8:52 PM EDT [facility] Anion Gap 10 6 - 16 mmol/L 03/30/2025 8:52 PM EDT [facility] Total Calcium, Plasma 8.7(L) 8.9 - 10.2 mg/dL 03/30/2025 8:52 PM EDT [facility] Total Protein 5.9(L) 6.3 - 7.9 g/dL 03/30/2025 8:52 PM EDT [facility] Albumin, Plasma 3.7 3.5 - 5.2 g/dL 03/30/2025 8:52 PM EDT [facility] AST, Plasma 16 10 - 35 U/L 03/30/2025 8:52 PM EDT [facility] ALT, Plasma 12 10 - 35 U/L 03/30/2025 8:52 PM EDT [facility] Alkaline Phosphatase, Plasma 45 35 - 104 U/L 03/30/2025 8:52 PM EDT [facility] Total Bilirubin, Plasma 0.4 0.2 - 1.1 mg/dL 03/30/2025 8:52 PM EDT [facility] eGFRcr 86.9 mL/min/1.7 3m*2 03/30/2025 8:52 PM EDT [facility] Comment:Reported eGFRcr in m L/min/1.73m2 is based the CKD-EPI 2020 equation that does not use a race coefficient. Blood Venous blood specimen / Unknown Venipuncture / Unknown 03/30/2025 7:10 PM EDT 03/30/2025 7:10 PM EDT us Osmel Medina MD LAB BLOOD ORDERABLES Final Re sult [facility] [address] [place] [address] * (ABNORMAL) CBC and Differential (03/30/2025 7:10 PM EDT) WBC Count 4.10 3.70 - 10.30 10*3/uL LAB HEMATOLOGY METHOD 03/30/2025 8:21 PM EDT [facility] RBC Count 4.88 3.90 - 5.20 10*6/uL LAB HEMATOLOGY METHOD 03/30/2025 8:21 PM EDT [facility] HGB 13.0 11.2 - 15.7 g/dL LAB HEMATOLOGY METHOD 03/30/2025 8:21 PM EDT [facility] HCT 39.5 34.0 - 45.0 % LAB HEMATOLOGY METHOD 03/30/2025 8:21 PM EDT [facility] Platelet Count 197 155 - 369 10*3/uL LAB HEMATOLOGY METHOD 03/30/2025 8:21 PM EDT [facility] MCV 81 79 - 98 fL LAB HEMATOLOGY METHOD 03/30/2025 8:21 PM EDT [facility] MCH 26.6 26.0 - 32.0 pg LAB HEMATOLOGY METHOD 03/30/2025 8:21 PM EDT [facility] MCHC 32.9 30.7 - 35.5 g/dL LAB HEMATOLOGY METHOD 03/30/2025 8:21 PM EDT [facility] RDW 13.0 11.5 - 14.5 % LAB HEMATOLOGY METHOD 03/30/2025 8:21 PM EDT [facility] MPV 11.2 8.8 - 12.5 fL LAB HEMATOLOGY METHOD 03/30/2025 8:21 PM EDT [facility] nRBC 0.0 <=0.0 per 100 WBCs LAB HEMATOLOGY METHOD 03/30/2025 8:21 PM EDT [facility] Differential Type Automated LAB HEMATOLOGY METHOD 03/30/2025 8:21 PM EDT [facility] Neutrophils % 54 % LAB HEMATOLOGY METHOD 03/30/2025 8:21 PM EDT [facility] Lymphocytes % 34 % LAB HEMATOLOGY METHOD 03/30/2025 8:21 PM EDT [facility] Monocytes % 7 % LAB HEMATOLOGY METHOD 03/30/2025 8:21 PM EDT [facility] Eosinophils % 4 % LAB HEMATOLOGY METHOD 03/30/2025 8:21 PM EDT [facility] Basophils % 1 % LAB HEMATOLOGY METHOD 03/30/2025 8:21 PM EDT [facility] Immature Granulocytes % 0 % LAB HEMATOLOGY METHOD 03/30/2025 8:21 PM EDT [facility] Neutrophils Absolute 2.21 1.60 - 6.10 10*3/uL LAB HEMATOLOGY METHOD 03/30/2025 8:21 PM EDT [facility] Lymphocytes Absolute 1.40 1.20 - 3.90 10*3/uL LAB HEMATOLOGY METHOD 03/30/2025 8:21 PM EDT [facility] Monocytes Absolute 0.28(L) 0.30 - 0.90 10*3/uL LAB HEMATOLOGY METHOD 03/30/2025 8:21 PM EDT [facility] Eosinophils Absolute 0.17 0.00 - 0.50 10*3/uL LAB HEMATOLOGY METHOD 03/30/2025 8:21 PM EDT [facility] Basophils Absolute 0.03 0.00 - 0.10 10*3/uL LAB HEMATOLOGY METHOD 03/30/2025 8:21 PM EDT [facility] Immature Granulocytes Absolute 0.01 0.00 - 0.06 10*3/uL LAB HEMATOLOGY METHOD 03/30/2025 8:21 PM EDT [facility] Blood Venous blood specimen / Unknown Venipuncture / Unknown 03/30/2025 7:10 PM EDT 03/30/2025 7:10 PM EDT Narrative [facility] - 03/30/2025 8:21 PM EDT Therapeutic decision making should be based on absolute values, rather than percentages. us Osmel Medina MD LAB BLOOD ORDERABLES Final Re sult [facility] [address] [place] [address] * POCT Urine (03/30/2025 5:56 PM EDT) Urine - Point of Care Negative Negative - women after 7 weeks gestation and dilute urine (specific gravity <1.010) may have false negative results. Plasma HCG testing is recommended. Test performed at Point of Care. INTERNAL QC OK, PREG URINE y KIT LOT NUMBER, PREG URINE [id number] KIT EXPIRATION DATE, PREG URINE 09-27-2025 Urine Urine specimen obtained by clean catch procedure / Unknown 03/30/2025 5:56 PM EDT Osmel Medina MD POINT OF CARE TEST ENTER/EDIT ORDERABLES Final Result * (ABNORMAL) POCT Drugs of Abuse (03/30/2025 5:56 PM EDT) POC Amphetamine Screen, Urine Negative Negative POC Amphetamine Internal QC OK? Yes Positive results should be sent to laboratory for confirmation . POC Barbiturate Screen, Urine Negative Negative POC Barbiturates Internal QC OK? Yes Positive results should be sent to laboratory for confirmation . POC Buprenorphine Screen, Urine Negative Negative POC Buprenorphine Internal QC OK? Yes Positive results should be sent to laboratory for confirmation . POC Benzodiazepines Screen, Urine Presumptive Positive(A) Negative POC Benzodiazepines Internal QC OK? Yes Positive results should be sent to laboratory for confirmation . POC Cocaine Screen, Urine Negative Negative POC Cocaine Internal QC OK? Yes Positive results should be sent to laboratory for confirmation . POC Methamphetamine Screen, Urine Negative Negative POC Methamphetamine Internal QC OK? Yes Positive results should be sent to laboratory for confirmation . POC Methadone Screen, Urine Negative Negative POC Methadone Internal QC OK? Yes Positive results should be sent to laboratory for confirmation . POC Opiate Screen, Urine Negative Negative POC Opiates Internal QC OK? Yes Positive results should be sent to laboratory for confirmation . POC Oxycodone Screen, Urine Negative Negative POC Oxycodone Internal QC OK? Yes Positive results should be sent to laboratory for confirmation . POC THC Screen, Urine Presumptive Positive(A) Negative POC THC Internal QC OK? Yes Positive results should be sent to laboratory for confirmation . POC Urine Temperature Normal Normal POC UDS Kit Lot Number [id number] POC UDS Kit Expiration 08-09-2026 POC UDS Collection Observed? Not Observed Urine 03/30/2025 5:56 PM EDT Osmel Medina MD POINT OF CARE TEST ENTER/EDIT ORDERABLES Final Result documented in this encounter Visit Diagnoses Diagnosis Unspecified mood (affective) disorder (CMS/HCC)- Primary Unspecified mood (affective) disorder (CMS/HCC) documented in this encounter Administered Medications Inactive Administered Medications - up to 3 most recent administrations Medication Order MAR Action Action Date Dose Rate Site acetaminophen (Tylenol) tablet 650 mg 650 mg, Oral, Every 6 hours PRN, Starting on Sat03/30/25 at 1749, Until Sat03/31/25 at 1200, Routine, mild pain, moderate pain aluminum & magnesium hydroxide-simethicone (Mylanta) 200-200-20 MG/5ML oral suspension 10 mL 10 mL, Oral, Every 6 hours PRN, Starting on Sat03/30/25 at 1749, Until Sat03/31/25 at 1200, Routine, indigestion, heartburnIndications:UGI Symptoms buPROPion XL (Wellbutrin XL) 24 hr tablet 150 mg 150 mg, Oral, Daily, First dose on Sat03/31/25 at 0900, Until Discontinued, STAT Given 03/31/2025 8:06 AM EDT 150 mg busPIRone (Buspar) tablet 30 mg 30 mg, Oral, 2 times daily, First dose on Sat03/30/25 at 2100, Until Discontinued, STAT Given 03/31/2025 8:06 AM EDT 30 mg Given 03/30/2025 9:24 PM EDT 30 mg gabapentin (Neurontin) capsule 100 mg 100 mg, Oral, Nightly, First dose on Sat03/30/25 at 2100, Until Discontinued, STAT Given 03/30/2025 9:24 PM EDT 10 0 mg gabapentin (Neurontin) capsule 300 mg 300 mg, Oral, Daily, First dose on Sat03/31/25 at 0900, Until Discontinued, STAT Given 03/31/2025 8:06 AM EDT 30 0 mg hydrOXYzine pamoate (Vistaril) capsule 50 mg 50 mg, Oral, 3 times daily PRN, Starting on Sat03/30/25 at 1757, Until Sat03/31/25 at 1200, Routine, anxiety Given 03/31/2025 8:06 AM EDT 50 mg LORazepam (Ativan) tablet 1 mg 1 mg, Oral, 3 times daily, First dose on Sat03/30/25 at 1800, Until Discontinued, STAT Given 03/31/2025 8:06 AM EDT 1 mg Given 03/30/2025 6:14 PM EDT 1 mg LORazepam (Ativan) tablet 1 mg 1 mg, Oral, Once, 1 dose, On Sat03/30/25 at 2245, STAT Given 03/30/2025 10:52 PM EDT 1 mg magnesium hydroxide (Milk of Magnesia) 400 MG/5ML suspension 10 mL 10 mL, Oral, Daily PRN, Starting on Sat03/30/25 at 1749, Until Sat03/31/25 at 1200, Routine, constipationIndications:Constipation pantoprazole (Protonix) EC tablet 40 mg 40 mg, Oral, Daily before breakfast, First dose on Sat03/31/25 at 0730, Until Discontinued, Routine Given 03/31/2025 6:51 AM EDT 40 mg traZODone (Desyrel) tablet 50 mg 50 mg, Oral, Nightly, First dose on Sat03/30/25 at 2100, Until Discontinued, Routine Given 03/30/2025 9:24 PM EDT 50 mg documented in this encounter Active and Recently Administered Medications Times are shown in EDT. Scheduled Medication Order 03/29/2025 03/30/2025 03/31/2025 buPROPion XL (Wellbutrin XL) 24 hr tablet 150 mg 150 mg, Oral, Daily, First dose on Sat03/31/25 at 0900, Until Discontinued, STAT 805 (Given - Provid er: Betsy Ellsworth RN) busPIRone (Buspar) tablet 30 mg 30 mg, Oral, 2 times daily, First dose on Sat03/30/25 at 2100, Until Discontinued, STAT 2123 (Given - Provider: Telly Zavala RN) 08 (Given - Provider: Betsy Ellsworth RN) gabapentin (Neurontin) capsule 100 mg(Linked Group 1) 100 mg, Oral, Nightly, First dose on Sat03/30/25 at 2100, Until Discontinued, STAT 2123 (Given - Provider: Telly Zavala RN) gabapentin (Neurontin) capsule 300 mg(Linked Group 1) 300 mg, Oral, Daily, First dose on Sat03/31/25 at 0900, Until Discontinued, STAT 805 (Given - Provid er: Betsy Ellsworth RN) LORazepam (Ativan) tablet 1 mg 1 mg, Oral, 3 times daily, First dose on Sat03/30/25 at 1800, Until Discontinued, STAT 1813 (Given - Provider: Betsy Ellsworth RN) 08 (Given - Provider: Betsy Ellsworth RN) LORazepam (Ativan) tablet 1 mg (COMPLETED) 1 mg, Oral, Once, 1 dose, On Sat03/30/25 at 2245, STAT 2252 (Given - Provider: Nguyen Ayala, LUCIA) pantoprazole (Protonix) EC tablet 40 mg 40 mg, Oral, Daily before breakfast, First dose on Sat03/31/25 at 0730, Until Discontinued, Routine 0651 (Given - Provid er: Kym Tejeda RN) traZODone (Desyrel) tablet 50 mg 50 mg, Oral, Nightly, First dose on Sat03/30/25 at 2100, Until Discontinued, Routine 4 (Given - Provider: Telly Zavala RN) PRN Medication Order 03/29/2025 03/30/2025 03/31/2025 acetaminophen (Tylenol) tablet 650 mg 650 mg, Oral, Every 6 hours PRN, Starting on Sat03/30/25 at 1749, Until Sat03/31/25 at 1200, Routine, mild pain, moderate pain aluminum & magnesium hydroxide-simethicone (Mylanta) 200-200-20 MG/5ML oral suspension 10 mL 10 mL, Oral, Every 6 hours PRN, Starting on Sat03/30/25 at 1749, Until Sat03/31/25 at 1200, Routine, indigestion, heartburn hydrOXYzine pamoate (Vistaril) capsule 50 mg 50 mg, Oral, 3 times daily PRN, Starting on Sat03/30/25 at 1757, Until Sat03/31/25 at 1200, Routine, anxiety 0806 (Given - Provid er: Betsy Ellsworth RN) magnesium hydroxide (Milk of Magnesia) 400 MG/5ML suspension 10 mL 10 mL, Oral, Daily PRN, Starting on Sat03/30/25 at 1749, Until Sat03/31/25 at 1200, Routine, constipation Linked Groups Order Group 1: gabapentin (Neurontin) capsule 100 mgJump to med 100 mg, Oral, Nightly, First dose on Sat03/30/25 at 2100, Until Discontinued, STAT And gabapentin (Neurontin) capsule 300 mgJump to med 300 mg, Oral, Daily, First dose on Sat03/31/25 at 0900, Until Discontinued, STAT documented in this encounter Additional Health Concerns Assessment Noted Time PHQ-9 Depression Total Score: 23 025 5:44 PM EDT A fall risk assessment has been complete d for the patient 11/03/2024 12:57 PM EST A Body Mass Index follow-up plan has been documented for the patient 03/31/2025 9:57 AM EDT documented as of this encounter Care Teams Florist Helper Relationship Specialty Start Date End Date Sandro Sebastian MD [address] [place] [address] PCP - General 01/27/21 documented as of this encounter
--- OUTSIDE RECORDS SUMMARY | 2025-04-21 11:00 | XMS_ITS ---
Author Organization [facility] Address [address] [place] [address] Care Team Providers Care Ruffler Name Role Phone Chiqui Gibson Unavailable [phone] Tesha Card Unavailable [phone] Allergies Allergen (clinical drug ingredient) Drug/Non Drug Allergy documented on EMR Reaction Allergy Type Onset Date Status PENICILLIN V POTASSI UM (PENICILLIN V POTASSIUM TAB rash Drug Allergy 06/06/2011 Active Results Component Value Reference Range Notes Pap w/reflex HPV Reviewed date:04/30/2025 09:33:30 AM Interpretation:Normal Performing Lab:Moris RIGGINS [facility] [place] CLIA ID [id number], [address], [address], [place] [address], Director - Vikash Sanchez MD Notes/Report: Any Nucleic Acid Amplification testing is performed on the [facility]. Diagnosis: Negative for intraepithelial lesion or malignancy. AP results FINAL CD MIXER CYTOLOGY REPORT DIAGNOSIS: Negative for intraepithelial lesion or malignancy. Specimen Adequacy: Satisfactory for interpretation with endocervical/transformat ion zone component absent. Pertinent Clinical History/History of Surgery: Not provided Collection Technique: Not provided Results of Last Pap: Not provided LMP: . Date of Last Pap: Not provided Specimen Source: Cervical/Endocervical Specimen Type: ThinPrep Other Gynecological Patient Information: Not provided Recommendation: Follow-up based on current clinical guidelines and/or clinical consideration. Screening note: This specimen has been analyzed by the [employer] System, an interactive computer system which assists the lab in screening of ThinPrep Pap Test slides. Following imaging, the slide was reviewed by a Ekg Technician and/or Pathologist. Negative Educational Note: The pap screening test aids in the detection of premalignant and malignant states of the cervix. False positive and negative results may occur. It is not a diagnostic test. If abnormal cells are reported, follow-up based on current clinical guidelines and/or clinical consideration is recommended. Tiffany Zimmerman Ekg Technician CPT Codes: 57163 ICD Codes: Z01.419 REASON FOR VISIT Annual Medications Medication SIG (Take, Route, Frequency, Duration) Notes Start Date End Date Status traZODone HCl 50mg tab daily A ctive Vitamin D 125mcg daily Active LORazepam 1 tab TID Active Omeprazole 40mg daily Active Loratadine 10mg Active BuSpar 30mg BID Active Auvelity 45-105mg 1tab BID Ac tive hydrOXYzine HCl 50mg TID Acti ve Gabapentin 300mg caps 2capsTID Active Glycopyrrolate PF 2mg QID Ac tive Nadolol Active Jardiance Active Social History Sex Assigned At : [...] other than smoking: Are you an other tobacco user? vape Additional Details Category Social Info Options Details Miscellaneous: Caffeine: CAFFEINE USE: 3 Problems Problem Type SNOMED Code ICD Code Onset Dates Problem Status W/U Status Risk Notes Problem Secondary oligomenorrhea (20709699) Secondary oligomenorrhea (N91.4) Active confirmed Vital Signs Blood pressure systolic 122 mm Hg 04/21/20 25 Blood pressure diastolic 82 mm Hg 025 Height 64 in 04/21/2025 Weight 115.4 lbs 04/21/2025 BMI 19.81 kg/m2 04/21/2025 Encounters Encounter Location Date Provider Diagnosis [facility] LW-NR [address] [place] [address] 04/21/2025 Tesha Card Sprinkler Worker exam without abnormal findings Z01.419 and Secondary oligomenorrhea N91.4 Assessments Encounter Date Diagnosis (ICD Code) Assessment Notes Treatment Notes Treatment Clinical Notes Section Notes 04/21/2025 Sprinkler Worker exam without abnormal findings (ICD-10 - Z01.419) 04/21/2025 Secondary oligomenorrhea (ICD-10 - N91.4) Plan Of Treatment Next Appt Details Follow Up: prn, Reason: Provider Name:Aramis Felix, 04/26/2026 02:15:00 PM, [address], [place], [address], History and Physical Notes * HPI (History of Present Illness) Category Sub-Category Detail Notes Category Not es CD MIXER Alysa Mancini, a 39-year-old female, came in for follow-up regarding irregular periods and pelvic pain. She reported a history of unpredictable menstrual cycles, with prolonged bleeding after her last childbirth in November 2023 and subsequent amenorrhea since starting weight loss medication. Over the past year, she lost nearly 200 pounds, and she is uncertain about the impact of this rapid weight loss on her menstrual health. 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 Alysa discussed a history of anemia, noting that she was advised to receive iron infusions but faced significant cost and scheduling barriers, resulting in delayed treatment. Despite these challenges, she remains motivated to address her health concerns. She also described minor pelvic pain of unclear origin, which she did not consider a major issue at this time. Examination Category Sub-Category Detail Notes Category Not es Genitourinary Examination - Female VAGINA: Normal appearance for age, n o significant discharge, lesions, or masses present CERVIX: Appearance normal, n o lesions present, no significant discharge, no tenderness to cervical motion UTERUS: Size normal, no palp able masses, mobile, nontender to palpation BLADDER: Normal and nontender to palpation ADNEXA: No masses or tendern ess bilaterally EXTERNAL GENITALIA: Normal appearance fo r age, no erythema or skin lesions present URETHRA/URETHRAL MEATUS: Normal in appea sharon, nontender without mass effect PERINEUM: Normal in appearance without lesion PELVIC LYMPH NODES: No lymphadenopathy General Examination GENERAL APPEARANCE: Well dev eloped, well nourished, alert in no acute distress NEURO/PSYCH: Oriented to person, place, and time. Mood pleasant, normal affect CARDIOPULMONARY: Respiratory effort i s even and unlabored ABDOMINAL/GASTROINTESTINAL: Abdomen nont vitaliy, no masses palpated Real Estate Asset Manager Real Estate Asset Manager Status MJONES, SALES CONSULTANT RESIDENTIAL MANAGER Breast Examination BREASTS: Breast normal . No evidence of mass, skin changes, nipple retraction or discharge AXILLARY LYMPH NODES: No lymphadenopathy Progress Notes * Alysa MANCINI MDOB:02/1986 (39 yo F)Acc No.[id number]:04/21/2025 Progress Note Patient: Alysa Romero Provider: Aimee Card MD :1985 A ge:39 Y S ex:Female Date:04/21/2025 Address:[address] [place] [address] Subjective: * Chief Complaints: * A nnual * HPI: A nnual: 39 year old female presents with c/o Annual Exam. G YN: Alysa Mancini, a 39-year-old female, came in for follow-up regarding irregular periods and pelvic pain. She reported a history of unpredictable menstrual cycles, with prolonged bleeding after her last childbirth in November 2023 and subsequent amenorrhea since starting weight loss medication. Over the past year, she lost nearly 200 pounds, and she is uncertain about the impact of this rapid weight loss on her menstrual health. 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 Alysa discussed a history of anemia, noting that she was advised to receive iron infusions but faced significant cost and scheduling barriers, resulting in delayed treatment. Despite these challenges, she remains motivated to address her health concerns. She also described minor pelvic pain of unclear origin, which she did not consider a major issue at this time. 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 P regnancy # 2: P annabelle, 04/2008, female. P regnancy # 3: 2 019, Stebie, normal spontaneous vaginal delivery ().? P regnancy # 4: , Franklyn. 37w IUFD. P regnancy # 5: E DD = 12/17/2023 - Currently . * Surgical History: LEE 2016 Multiple Lithotripsy T&A [place] Teeth Extraction Lt Breast Lumpectomy umbilical hernia repair oral surgery teeth revision pacemaker and defibrillator placed Midurethral sling Surgical History verified. * Hospitalization/Major Diagno stic Procedure: T&A L&D - x3 Hospitalization Verified. * Family History: 1 son(s) , 2 daughter(s) . . F amily History Verified.. Nothing documented. * Social History: T obacco [...] used anabolic (body building) steroids? N o M iscellaneous: C affeine: CAFFEINE USE: 3. S ocial History Verified. * Medications: T akingAuvelity , Notes to Pharmacist: 45-105mg 1tab BIDBuSpar , Notes to Pharmacist: 30mg BIDGabapentin , Notes to Pharmacist: 300mg caps 2capsTIDGlycopyrrolate PF , Notes to Pharmacist: 2mg QIDhydrOXYzine HCl , Notes to Pharmacist: 50mg TIDJardiance Loratadine , Notes to Pharmacist: 10mgLORazepam , Notes to Pharmacist: 1 tab TIDNadolol Omeprazole , Notes to Pharmacist: 40mg dailytraZODone HCl , Notes to Pharmacist: 50mg tab dailyVitamin D , Notes to Pharmacist: 125mcg dailyTaking Auvelity , Notes to Pharmacist: 45-105mg 1tab BIDTaking BuSpar , Notes to Pharmacist: 30mg BIDTaking Gabapentin , Notes to Pharmacist: 300mg caps 2capsTIDTaking Glycopyrrolate PF , Notes to Pharmacist: 2mg QIDTaking hydrOXYzine HCl , Notes to Pharmacist: 50mg TIDTaking Jardiance Taking Loratadine , Notes to Pharmacist: 10mgTaking LORazepam , Notes to Pharmacist: 1 tab TIDTaking Nadolol Taking Omeprazole , Notes to Pharmacist: 40mg dailyTaking traZODone HCl , Notes to Pharmacist: 50mg tab dailyTaking Vitamin D , Notes to Pharmacist: 125mcg dailyDiscontinuedACCRUFeR(Ferric Maltol) 30 MG Capsule 1 capsule Orally Once daily Ferrous Sulfate 325 (65 Fe) MG Tablet Delayed Release 1 tablet Orally daily Macrobid(Nitrofurantoin Monohyd Macro) 100 MG Capsule 1 capsule with food Orally every 12 hrs Macrobid(Nitrofurantoin Monohyd Macro) 100 MG Capsule 1 capsule with food Orally every 12 hrs Nexplanon(Etonogestrel) 68 MG Implant as directed Subcutaneous Spravato (84 MG Dose) , Notes to Pharmacist: nasal ketamine once weeklyMedication List reviewed and reconciled with the patientDiscontinued ACCRUFeR(Ferric Maltol) 30 MG Capsule 1 capsule Orally Once daily Discontinued Ferrous Sulfate 325 (65 Fe) MG Tablet Delayed Release 1 tablet Orally daily Discontinued Macrobid(Nitrofurantoin Monohyd Macro) 100 MG Capsule 1 capsule with food Orally every 12 hrs Discontinued Macrobid(Nitrofurantoin Monohyd Macro) 100 MG Capsule 1 capsule with food Orally every 12 hrs Discontinued Nexplanon(Etonogestrel) 68 MG Implant as directed Subcutaneous Discontinued Spravato (84 MG Dose) , Notes to Pharmacist: nasal ketamine once weeklyMedication List reviewed and reconciled with the patient * Allergies: P ENICILLIN V POTASSIUM (PENICILLIN V POTASSIUM TAB: rash - Allergy - Onset Date [id number] Verified. Objective: * Vitals: B P:122/82mm Hg, Ht: 64 in, Wt:115.4lbs, BMI:19.81Index. * Examination: G eneral Examination: GENERAL APPEARANCE: W ell developed, well nourished, alert in no acute distress. NEURO/PSYCH: O riented to person, place, and time. Mood pleasant, normal affect. CARDIOPULMONARY: R espiratory effort is even and unlabored. ABDOMINAL/GASTROINTESTINAL: A bdomen nontender, no masses palpated. B reast Examination: BREASTS: B reast normal. No evidence of mass, skin changes, nipple retraction or discharge. AXILLARY LYMPH NODES: N o lymphadenopathy. G enitourinary Examination - Female: EXTERNAL GENITALIA: N ormal appearance for age, no erythema or skin lesions present. URETHRA/URETHRAL MEATUS: N ormal in appearance, nontender without mass effect. BLADDER: N ormal and nontender to palpation. VAGINA: N ormal appearance for age, no significant discharge, lesions, or masses present. CERVIX: A ppearance normal, no lesions present, no significant discharge, no tenderness to cervical motion. UTERUS: S ize normal, no palpable masses, mobile, nontender to palpation. ADNEXA: N o masses or tenderness bilaterally. PERINEUM: N ormal in appearance without lesion. PELVIC LYMPH NODES: N o lymphadenopathy. C haperone: Real Estate Asset Manager Status Jo-Ann ROSENTHAL LPN. Assessment: * Assessment: 1. G yn exam without abnormal findings - Z01.419 (Primary) 2 . S econdary oligomenorrhea - N91.4 Plan: * Treatment: 2. S econdary oligomenorrhea L AB: Estradiol L AB: FSH L AB: Prolactin L AB: TSH reflex to FT4 if abnormal * Procedure Codes: 9 9459 Pelvic examination [List separately in addition to code for primary procedure] * Preventive Medicine: Counseling: Adolfo costello Preventative Care: Adolfo figueroa ACOG guidelines for preventative exams and pap smears. Preventative health guidelines discussed breast cancer, colon cancer, and osteoporosis screening and prevention as appropriate. Counseled on safe sex practices including control and prevention of sexually transmitted infections as appropriate. B ID care goal follow-up plan: BMI management provided Y es Discussed importance of healthy BMI?Yes S moking: Type of Tobacco Use Cessation Counseling provided C ounseled if indicated * Follow Up: p rn Billing Information: * Visit Code: 44412 Est Pt Annual 18-39 yr old. [address] Office/Outpatient visit, est patient. Modifiers: 25 * Procedure Codes: 60958 Pelvic examination [List separately in addition to code for primary procedure]. * Sign off status: Completed Visit Status: C HK (Check Out) true * Provider: Aimee Card MD Date: 0 04/21/2025 Generated for Lluvia lewis/Rodolfo/Colbyitting on: 0 05/21/2025 08:42 AM EDT
--- OUTSIDE RECORDS SUMMARY | 2025-04-21 16:30 | XMS_ITS | Encounter Summary ---
[facility] Organization [facility] Address [address] [place] [address] Care Team Providers Care Coin Machine Collector Name Role Phone Sandro Sebastian MD Primary Care Provider [phone] Encounter Details Date Type Department Care Team (Late st Contact Info) Description 04/21/2025 4:30 PM EDT Lab [facility] [address] [place] [id number] Secondary oligomenorrhea Social History Tobacco Use Types Packs/Day Years Used Date Smoking Tobacco: Former Cigarettes 1 10 0 12/15/2008 - 12/15/2018 Smokeless Tobacco: Never Comments:Nicotine gum occasi onally, No cigerarette use since 2021, Vape up un til found out she was , Nicotine pouches usage 4-5 times daily this Alcohol Use Standard Drinks/Week Comments Not Currently 0 (1 standard drink = 0.6 oz pur e alcohol) [facility] Utilities Answer Date Recorded In the past 12 months has [employer], gas, oil, or water [employer] threatened to shut off services in your home? No 11/20/2023 AUDIT-C Answer Date Recorded Q1: How often do you have a drink containing alcohol? Never 11/20/2023 Q2: How many drinks containi ng alcohol do you have on a typical day when you are drinking? Patient does not drink Q3: How often do you have si x or more drinks on one occasion? Never 11/20/2023 Overall Financial Resource Strain (CARDIA) Answe r Date Recorded How hard is it for you to pa y for the very basics like food, housing, medical care, and heating? Not hard at all 11/20/2023 [facility] - Occupational Stress Questionnaire Answer Date Recorded Do you feel stress - tense, restless, nervous, or anxious, or unable to sleep at night because your mind is troubled all the time - these days? Not at all 11/20/2023 Exercise Vital Sign Answer Date Recorde d On average, how many days pe r week do you engage in moderate to strenuous exercise (like a brisk walk)? 0 days 11/20/2023 On average, how many minutes do you engage in exercise at this level? 0 min 11/20/2023 Hunger Vital Sign Answer Date Recorded Within the past 12 months, y ou worried that your food would run out before you got the money to buy more. Never true 11/20/19 24 Within the past 12 months, t he food you bought just didn't last and you didn't have money to get more. Never true 11/20/2023 [facility] - Transportation Answer Date Re corded In the past 12 months, has l ack of transportation kept you from medical appointments or from getting medications? No 02/2024 In the past 12 months, has l ack of transportation kept you from meetings, work, or from getting things needed for daily living? No 11/20/2023 [place] Depression Scale Answer Date Recorded Retired [place] Depression Score 20 12/04/2023 Retired EPD Scale: Thought of Harming Self Unrec ognized value 12/04/2023 Abuse Screen Answer Date Recorded Feels Unsafe at Home or Work/School no 11/20/2023 Feels Threatened by Someone no 02/2024 Does Anyone Try to Keep You From Having Contact with Others or Doing Things Outside Your Home? no 11/20/2023 Physical Signs of Abuse Present no 11/20/2023 Housing Stability Answer Date Recorded Current Living Arrangements home 02/2024 Potentially Unsafe Housing Conditions none 11/20/2023 Family and Community Support Answer Miah e Recorded If for any reason you need h elp with day-to-day activities such as bathing, preparing meals, shopping, managing finances, etc., do you get the help you need? I get all the help I need 11/20/2023 How often do you feel lonely or isolated from those around you? Rarely 11/20/2023 Employment Answer Date Recorded Do you want help finding or keeping work or a job? I do not need or want help 11/20/2023 Disabilities Answer Date Recorded Difficulty Concentrating, Remembering or Making Decisions no 11/20/2023 Difficulty Managing Errands Independently no 11/20/2023 Education Answer Date Recorded Do you want help with school or training? For example, starting or completing job training or getting a high school diploma, GED or equivalent No 11/20/2023 Preferred Language Icelandic 11/20/2023 PHQ-2 Answer Date Recorded Retired PHQ-9: Brief Depression Severity Measure Score 3 11/20/2023 Comments No Sex and Gender Information Value Date Recorded Sex Assigned at Not on file Legal Sex Female 10:19 AM EDT Gender Identity Not on file Sexual Orientation Not on file documented as of this encounter Plan of Treatment Not on file documented as of this encounter Procedures Procedure Name Priority Date/Time Associated Diagnosis Comments TSH RFX ON ABNORMAL TO FREE T4 Routine 04/21/2025 4:04 PM EDT Secondary oligomenorrhea PROLACTIN Routine 04/21/2025 4:04 PM EDT Secondary oligomenorrhea ESTRADIOL Routine 04/21/2025 4:04 PM EDT Secondary oligomenorrhea FOLLICLE STIMULATING HORMONE Routine 04/21/2025 4:04 PM EDT Secondary oligomenorrhea documented in this encounter Results * Prolactin (04/21/2025 4:04 PM EDT) Prolactin 21.70 4.79 - 23.30 ng/mL 04/21/2025 11:50 PM EDT [facility] Blood Venipuncture / Unknown 04/21/2025 4:04 PM EDT 04/21/2025 4:04 PM EDT Narrative [facility] - 04/21/2025 11:50 PM EDT Results may be falsely decreased if patient taking Biotin. us Tesha Card MD LAB BLOOD ORDERABLES Final R esult Performing Organization Address City/[facility]/ZIP Co de Phone Number [facility]
[address] [place] [address], * TSH Rfx On Abnormal To Free T4 (04/21/2025 4:04 PM EDT) TSH 1.400 0.270 - 4.200 uIU/mL 04/21/2025 11:50 PM EDT [facility] Blood Venipuncture / Unknown 04/21/2025 4:04 PM EDT 04/21/2025 4:04 PM EDT Tesha Card MD LAB BLOOD ORDERABLES Final R esult Performing Organization Address [facility] Co de Phone Number [facility]
[address] [place] [address], * Follicle Stimulating Hormone (04/21/2025 4:04 PM EDT) FSH 12.70 mIU/mL 04/21/2025 11:50 PM EDT [facility] Blood Venipuncture / Unknown 04/21/2025 4:04 PM EDT 04/21/2025 4:04 PM EDT Narrative [facility] - 04/21/2025 11:50 PM EDT FSH Reference Ranges: Adult Males: 1.5-12.4 mIU/mL Adult Females: Folicular Phase 3.5-12.5 mIU/ml Ovulation Phase 4.7-21.5 mIU/ml Lutal Phase 1.7-7.7 mIU/ml Postmenopausal 25.8-134.8 mIU/ml Tesha Card MD LAB BLOOD ORDERABLES Final R esult Performing Organization Address [facility] Co de Phone Number [facility]
[address] [place] [address], * Estradiol (04/21/2025 4:04 PM EDT) Estradiol 52.0 pg/mL 04/21/2025 11:50 PM EDT [facility] Blood Venipuncture / Unknown 04/21/2025 4:04 PM EDT 04/21/2025 4:04 PM EDT Narrative [facility] - 04/21/2025 11:50 PM EDT Estradiol Reference Ranges: Adult Males: 7.6-42.6 pg/mL Adult Femles: Follicular phase 12.5-166.0 pg/mL Ovulation phase 85.8-498.0 pg/mL Luteal phase 43.8-211.0 pg/mL Postmenopausal <6.0-54.7 pg/mL : First Trimester 215.0- >4300.0 pg/mL Child (1-10 years): Male <6.0-20.0 pg/mL Female 6.0-27.0 pg/mL Results may be falsely increased if patient taking Biotin. us Tesha Card MD LAB BLOOD ORDERABLES Final R esult [facility]
[address] [place] [address], documented in this encounter Visit Diagnoses Diagnosis Secondary oligomenorrhea Scanty or infrequent menstruation documented in this encounter Additional Health Concerns Assessment Noted Time PHQ-2 Depression Total Score: 3 11/20/19 24 10:18 PM EST documented as of this encounter Care Teams Coin Machine Collector Relationship Specialty Start Date End Date Sandro Sebastian MD [address] [place] [address] PCP - General Family Medicine 06/23/19 documented as of this encounter
--- OUTSIDE RECORDS SUMMARY | 2025-05-21 08:41 | XMS_ITS | Encounter Summary ---
Author Organization [facility] Address [address] [place] [address] Care Team Providers Care Clothing Cutter Name Role Phone Sandro Sebastian MD Primary Care Provider [phone] Encounter Details Date Type Department Care Team (Late st Contact Info) Description 03/29/2025 Telephone [facility] [place] [address] [place] [address] Kristin Henderson, RN - Outpatient Center Social History Tobacco Use Types Packs/Day Years [...] on file documented as of this encounter Miscellaneous Notes * Telephone Encounter - Kristin Henderson, RN - 03/29/2025 11:01 AM EDT [facility] called on behalf of pt wanting us to appeal the denial for iron infusions. However, pt never had labs re-done indicating need for iron replacement. MA to call pt with reminder again for repeat labs. [facility] made aware. documented in this encounter Plan of Treatment Upcoming Encounters Date Type Department Care Team (Late st Contact Info) Description 06/03/2025 3:30 PM EDT Appointment Medical Office Building Cardiac Diagnostic Testing Medical Office Building Echo Lab [address], [address] [place] [address] documented as of this encounter Visit Diagnoses Not on filedocumented in this encounter Additional Health Concerns Assessment Noted Time PHQ-9 Depression Total Score: 3 11/03/19 12:57 PM EST A fall risk assessment has been complete d for the patient 11/03/2024 12:57 PM EST A Body Mass Index follow-up plan has been documented for the patient 12/08/2024 10:16 AM EDT documented as of this encounter Care Teams Clothing Cutter Relationship Specialty Start Date End Date Sandro Sebastian MD [address] [place] [id number] PCP - General 01/27/21 documented as of this encounter
--- OUTSIDE RECORDS SUMMARY | 2025-05-21 08:41 | XMS_ITS | Clinical Summary ---
Author Organization [facility] Address [address] [place] [address] Care Team Providers Care Aviation Engineer Name Role Phone Sandro Sebastian MD Primary Care Provider [phone] Allergies Active Allergy Reactions Criticality Noted Date Comments Dapagliflozin Diarrhea Low 11/24/2024 Penicillins Rash Low 06/12/2022 Metoprolol Diarrhea Low 11/24/2024 Medications * This document contains information received from the source organization and may not represent a complete record from that organization. glycopyrrolate (Robinul) 2 MG tablet Take 1 tablet (2 mg) by mouth 4 (four) times a day as needed. Active traZODone (Desyrel) 50 MG tabletIndicatio ns:Unspecified mood (affective) disorder (CMS/HCC) Take 3 tablets (150 mg total) by mouth every night. 90 tablet 1 09/26/2022 Active hydrOXYzine HCl (Atarax) 25 MG tablet TAKE 1 TABLET 3 TIMES EACH DAY NEEDED FOR ANXIETY 90 tablet 11/14/2022 Active Auvelity 45-105 MG tablet controlled-rele ase Take 45 mg by mouth 2 (two) times a day. 06/18/2024 Active hydrOXYzine pamoate (Vistaril) 50 MG capsule Take 1 capsule (50 mg) by mouth 3 (three) times a day. 07/15/2023 Active LORazepam (Ativan) 1 MG tablet Take 1 tablet (1 mg) by mouth 3 (three) times a day. 09/13/2023 Active Loratadine 10 MG capsule Take 10 mg by mouth 1 (one) time each day. Active omeprazole (PriLOSEC) [address] capsule Take 1 capsule (40 mg) by mouth daily. 02/25/2024 Active hydrOXYzine HCl (Atarax) 50 MG tablet Take 1 tablet (50 mg) by mouth every 6 hours as needed. 10/07/2024 Active lamoTRIgine (LaMICtal) 100 MG tablet Take 1 tablet (100 mg) by mouth. 10/19/2024 Active Tirzepatide-Francesco ght Management (Zepbound) 2.5 MG/0.5ML solution auto-injector Inject under the skin. Active bisoprolol (Zebeta) 5 MG tablet Take 1 tablet (5 mg) by mouth daily. 90 tablet 3 11/03/2024 Active spironolactone (Aldactone) 25 MG tablet Take 0.5 tablets (12.5 mg) by mouth daily. 90 tablet 3 11/03/2024 Active empagliflozin (Jardiance) 10 MG Take 1 tablet (10 mg) by mouth daily. 90 tablet 3 11/03/2024 Active torsemide (Demadex) 5 MG tablet Take 1 tablet (5 mg) by mouth in the morning. 30 tablet 3 11/24/2024 Active iron sucrose 100 mg in sodium chloride 0.9 % 95 mL IVPB Infuse 100 mg into a venous catheter 1 (one) time per week at 100 mL/hr over 60 minutes. 1 each 3 11/27/2024 Active lisinopril 2.5 MG tablet Take 1 tablet (2.5 mg) by mouth in the morning. 30 tablet 6 12/08/2024 Active Active Problems Problem Noted Date Diagnosed Date Unspecified mood (affective) disorder 03/31/2025 Iron deficiency anemia 11/09/2024 Encounters Date Type Department Care Team Description 03/30/2025 5:02 PM EDT - 03/31/2025 9:59 AM EDT Hospital Encounter [facility] [address] [place] [address] Osmel Medina MD Unspecified mood (affective) disorder (CMS/HCC) (Primary Dx) Discharge Disposition: Home or Self Care 03/30/2025 Travel 03/29/2025 Telephone [facility] [place] [address] [place] [address] Kristin Henderson RN from Last 3 Months Immunizations Immunization Administration Dates Next Due Influenza, Unspecified 07/02/2018,07/12/2016 Family History Medical History Relation Name Comments Anxiety disorder Maternal Grandmother Depression Maternal Grandmother Anxiety disorder Mother Depression Mother Hypertension Other 1 Hypertension Other 2 Other cancer Other 3 Heart attack Other 4 Hyperlipidemia Other 5 Hyperlipidemia Other 6 Anxiety disorder Paternal Grandmother Relation Name Status Comments Maternal Grandmother Mother Other 1 Other 2 Other 3 Other 4 Other 5 Other 6 Paternal Grandmother Social History Tobacco Use Types Packs/Day Years Used Date Smoking Tobacco: Former Cigarettes Smokeless Tobacco: Never Tobacco Cessation:Counseling Given: Not Answered Alcohol Use Standard Drinks/Week Comments Never 0 [...] on file Sexual Orientation Not on file Last Filed Vital Signs Vital Sign Reading [...] Mass Index 20.83 03/30/2025 5:30 PM EDT Plan of Treatment Upcoming Encounters Date Type Department Care Team (Late st Contact Info) Description 06/03/2025 3:30 PM EDT Appointment Medical Office Building Cardiac Diagnostic Testing Medical Office Building Echo Lab [address], [address] [place] [address] Health Maintenance Due Date Last Done Comments [facility]-Infant/Child/Adol SDOH Screenings 1985 [facility]-Varicella Vaccines (1 of 2 - 13+ 2-dose series) 12/20/2000 [facility]- SDOH Screenings 12/20/2005 [facility]-Adult SDOH Screenings 12/20/2005 [facility]-DTaP,Tdap,and Td Vaccines (1 - Tdap) 12/20/2006 [facility]-Hepatitis B Vaccines (1 of 3 - 19+ 3-dose series) 12/20/2006 [facility]-Pneumococcal Vaccine: Pediatrics (0 to 5 Years) and At-Risk Patients (6 to 49 Years) (1 of 2 - PCV) 12/20/2006 [facility]-Pap Smear 05/29/2009 05/29/2006 HPV Vaccines (1 - 3-dose SCDM series) 12/20/2014 [facility]-Cervical Cancer Screening 12/20/2017 [facility]-HPV/Cotest 12/20/2017 05/29/2006 [id number] Vaccine (3 - Moderna risk series) 10/14/2021 09/16/2021, 08/16/2021 [facility]-Influenza Vaccine (#1) 05/17/202507/02, 07/12/2016 [facility]-Depression Screening 03/30/2026 025, 03/30/2025 [facility]-Zoster Vaccines (1 of 2) 12/20/2037 [facility]-Hepatitis C Screening Completed 2022, 12/30/2018 [facility]-HIV Screening Completed 03/30/2025 [facility]-HIB Vaccines Aged Out No longer e ligible based on patient's age to complete this topic [facility]-Hepatitis A Vaccines Aged Out No longer eligible based on patient's age to complete this topic [facility]-IPV Vaccines Aged Out No longer e ligible based on patient's age to complete this topic [facility]-Rotavirus Vaccines Aged Out No lo nger eligible based on patient's age to complete this topic Procedures Procedure Name Priority Date/Time Associated Diagnosis Comments HEPATITIS B SURFACE ANTIGEN - EMPATH STAT 03/30/2025 10:03 PM EDT HIV 1/2 ANTIBODY/ANTIGEN SCREEN WITH REFLEX TO HIV I/II DIFFERENTIATION STAT 03/30/2025 9:05 PM EDT HIV 1/2 ANTIBODY/ANTIGEN SCREEN W/REFLEX TO HIV 1/2 ANTIBODY DIFFERENTIATION STAT 03/30/2025 9:05 PM EDT HEPATITIS C ANTIBODY WITH REFLEX TO HCV QUANT PCR - EMPATH STAT 03/30/2025 8:56 PM EDT TSH REFLEX FT4 STAT 03/30/2025 7:10 PM EDT COMPREHENSIVE METABOLIC PANEL, PLASMA STAT 03/30/2025 7:10 PM EDT CBC WITH AUTO DIFFERENTIAL STAT 03/30/2025 7:10 PM EDT POCT , URINE STAT 03/30/2025 5:56 PM EDT POCT DRUGS OF ABUSE, URINE STAT 03/30/2025 5:56 PM EDT CYTO DATA CONVERSION Routine 05/29/2006 12:00 AM EDT from Last 3 Months or Most Recently Relevant to Health Maintenance Results * Hepatitis B Surface Antigen - Empath (03/30/2025 10:03 PM EDT) Hepatitis B Surf Antigen Negative Negative 03/30/2025 10:03 PM EDT [facility] Blood Venous blood specimen / Unknown 03/30/2025 6:27 PM EDT us Osmel Medina MD LAB BLOOD ORDERABLES Final Re sult [facility] [address] [place] [address] * HIV 1 & 2 Antibody/Antigen Screen (03/30/2025 9:05 PM EDT) HIV 1 & 2 Antibody/Antigen Screen Non Reactive Non Reactive 03/30/2025 9:05 PM EDT [facility] Comment:Screening for HIV 1 & 2 antibodies, and P24 antigen is NONREACTIVE. No confirmatory testing is required. Blood Venous blood specimen / Unknown 03/30/2025 6:27 PM EDT us Osmel Medina MD LAB BLOOD ORDERABLES Final Re sult Performing Organization Address [facility] Co de Phone Number [facility] [address] [place] [address] * Hepatitis C Antibody with Reflex to HCV Quant PCR - Empath (03/30/2025 8:56 PM EDT) Hepatitis C Antibody Negative Negative 03/30/2025 8:56 PM EDT [facility] Blood Venous blood specimen / Unknown 03/30/2025 6:27 PM EDT Osmel Medina MD LAB BLOOD ORDERABLES Final Re sult Performing Organization Address [facility] Co de Phone Number [facility] [address] [place] [address] * TSH Reflex FT4 (03/30/2025 7:10 PM EDT) Pathologist [facility] Thyroid Stimulating Hormone, Plasma 0.59 0.40 - 4.20 uIU/mL 03/30/2025 8:52 PM EDT [facility] Blood Venous blood specimen / Unknown Venipuncture / Unknown 03/30/2025 7:10 PM EDT 03/30/2025 7:10 PM EDT Narrative [facility] - 03/30/2025 8:52 PM EDT Trimester Specific Ranges TSH ( IU/mL) 1st Trimester 0.1 - 3.0 2nd Trimester 0.19 - 4.06 3rd Trimester 0.3 - 3.7 us Osmel Medina MD LAB BLOOD ORDERABLES Final Re sult Performing Organization Address [facility]/ZIP Co de Phone Number [facility] [address] [place] [address] * (ABNORMAL) CBC and Differential (03/30/2025 7:10 PM EDT) WBC Count 4.10 3.70 - 10.30 10*3/uL LAB HEMATOLOGY METHOD 03/30/2025 8:21 PM EDT [facility] RBC Count 4.88 3.90 - 5.20 10*6/uL LAB HEMATOLOGY METHOD 03/30/2025 8:21 PM EDT [facility] HGB 13.0 11.2 - 15.7 g/dL LAB HEMATOLOGY METHOD 03/30/2025 8:21 PM EDT [facility] HCT 39.5 34.0 - 45.0 % LAB HEMATOLOGY METHOD 03/30/2025 8:21 PM EDT [facility] Platelet Count 197 155 - 369 10*3/uL LAB HEMATOLOGY METHOD 03/30/2025 8:21 PM EDT [facility] MCV 81 79 - 98 fL LAB HEMATOLOGY METHOD 03/30/2025 8:21 PM EDT [facility] MCH 26.6 26.0 - 32.0 pg LAB HEMATOLOGY METHOD 03/30/2025 8:21 PM EDT [facility] MCHC 32.9 30.7 - 35.5 g/dL LAB HEMATOLOGY METHOD 03/30/2025 8:21 PM EDT [facility] RDW 13.0 11.5 - 14.5 % LAB HEMATOLOGY METHOD 03/30/2025 8:21 PM EDT [facility] MPV 11.2 8.8 - 12.5 fL LAB HEMATOLOGY METHOD 03/30/2025 8:21 PM EDT [facility] nRBC 0.0 <=0.0 per 100 WBCs LAB HEMATOLOGY METHOD 03/30/2025 8:21 PM EDT [facility] Differential Type Automated LAB HEMATOLOGY METHOD 03/30/2025 8:21 PM EDT [facility] Neutrophils % 54 % LAB HEMATOLOGY METHOD 03/30/2025 8:21 PM EDT [facility] Lymphocytes % 34 % LAB HEMATOLOGY METHOD 03/30/2025 8:21 PM EDT [facility] Monocytes % 7 % LAB HEMATOLOGY METHOD 03/30/2025 8:21 PM EDT [facility] Eosinophils % 4 % LAB HEMATOLOGY METHOD 03/30/2025 8:21 PM EDT [facility] Basophils % 1 % LAB HEMATOLOGY METHOD 03/30/2025 8:21 PM EDT [facility] Immature Granulocytes % 0 % LAB HEMATOLOGY METHOD 03/30/2025 8:21 PM EDT [facility] Neutrophils Absolute 2.21 1.60 - 6.10 10*3/uL LAB HEMATOLOGY METHOD 03/30/2025 8:21 PM EDT [facility] Lymphocytes Absolute 1.40 1.20 - 3.90 10*3/uL LAB HEMATOLOGY METHOD 03/30/2025 8:21 PM EDT [facility] Monocytes Absolute 0.28(L) 0.30 - 0.90 10*3/uL LAB HEMATOLOGY METHOD 03/30/2025 8:21 PM EDT [facility] Eosinophils Absolute 0.17 0.00 - 0.50 10*3/uL LAB HEMATOLOGY METHOD 03/30/2025 8:21 PM EDT [facility] Basophils Absolute 0.03 0.00 - 0.10 10*3/uL LAB HEMATOLOGY METHOD 03/30/2025 8:21 PM EDT [facility] Immature Granulocytes Absolute 0.01 0.00 - 0.06 10*3/uL LAB HEMATOLOGY METHOD 03/30/2025 8:21 PM EDT [facility] Blood Venous blood specimen / Unknown Venipuncture / Unknown 03/30/2025 7:10 PM EDT 03/30/2025 7:10 PM EDT Narrative [facility] - 03/30/2025 8:21 PM EDT Therapeutic decision making should be based on absolute values, rather than percentages. us Osmel Medina MD LAB BLOOD ORDERABLES Final Re sult [facility] [address] [place] [address] * (ABNORMAL) CMP (03/30/2025 7:10 PM EDT) Glucose, Plasma 89 74 - 99 mg/dL 03/30/2025 8:52 PM EDT [facility] BUN, Plasma 7 7 - 21 mg/dL 03/30/2025 8:52 PM EDT [facility] Creatinine, Plasma 0.88 0.60 - 1.10 mg/dL 03/30/2025 8:52 PM EDT [facility] BUN/Creatinine Ratio 8 03/30/2025 8:52 PM EDT [facility] Sodium, Plasma 136 136 - 145 mmol/L 03/30/2025 8:52 PM EDT [facility] Potassium, Plasma 3.2(L) 3.6 - 4.9 mmol/L 03/30/2025 8:52 PM EDT [facility] Chloride, Plasma 103 97 - 107 mmol/L 03/30/2025 8:52 PM EDT [facility] CO2, Plasma 23 22 - 29 mmol/L 03/30/2025 8:52 PM EDT [facility] Anion Gap 10 6 - 16 mmol/L 03/30/2025 8:52 PM EDT [facility] Total Calcium, Plasma 8.7(L) 8.9 - 10.2 mg/dL 03/30/2025 8:52 PM EDT [facility] Total Protein 5.9(L) 6.3 - 7.9 g/dL 03/30/2025 8:52 PM EDT [facility] Albumin, Plasma 3.7 3.5 - 5.2 g/dL 03/30/2025 8:52 PM EDT [facility] AST, Plasma 16 10 - 35 U/L 03/30/2025 8:52 PM EDT [facility] ALT, Plasma 12 10 - 35 U/L 03/30/2025 8:52 PM EDT [facility] Alkaline Phosphatase, Plasma 45 35 - 104 U/L 03/30/2025 8:52 PM EDT [facility] Total Bilirubin, Plasma 0.4 0.2 - 1.1 mg/dL 03/30/2025 8:52 PM EDT [facility] eGFRcr 86.9 mL/min/1.7 3m*2 03/30/2025 8:52 PM EDT [facility] Comment:Reported eGFRcr in m L/min/1.73m2 is based the CKD-EPI 2020 equation that does not use a race coefficient. Blood Venous blood specimen / Unknown Venipuncture / Unknown 03/30/2025 7:10 PM EDT 03/30/2025 7:10 PM EDT Osmel Medina MD LAB BLOOD ORDERABLES Final Re sult [facility] [address] [place] [address] * (ABNORMAL) POCT Drugs of Abuse (03/30/2025 [...] Normal Normal POC UDS Kit Lot Number [id number] POC UDS Kit Expiration 08-09-2026 POC UDS Collection Observed? Not Observed Urine 03/30/2025 5:56 PM EDT Osmel Medina MD POINT OF CARE TEST ENTER/EDIT ORDERABLES Final Result * POCT Urine (03/30/2025 5:56 PM EDT) [...] CARE TEST ENTER/EDIT ORDERABLES Final Result * Cytology (05/29/2006 12:00 AM EDT) 05/29/2006 05/30/2006 11: 55 AM EDT Narrative [facility] - 05/31/2006 1:59 PM EDT [facility] MR #: [facility] [place], [place] [id number] (Age: 20) FW Collect Date: 05/29/2006 00:00 Receipt Date: 05/30/2006 11:55 Page 1 DEPARTMENT OF PATHOLOGY AND LABORATORY MEDICINE CYTOPATHOLOGY REPORT Email: [email or web address] ATTENDING MD/Practitioner: Oliver Hernandez MD Service: [employer] Location: [facility] Reported: 05/31/2006 13:59 Collected: 05/29/2006 00:00 INTERPRETATION THIN PREP (CERVICAL/VAGINAL): NEGATIVE FOR INTRAEPITHELIAL LESION OR MALIGNANCY. SATISFACTORY FOR EVALUATION; ENDOCERVICAL/ TRANSFORMATION ZONE COMPONENT PRESENT. Electronically Signed Out By GIANCARLO Nino(ASCP) GIANCARLO Nino(ASCP) Cervical cytology is a screening test primarily for squamous cancers and precursors and has associated false negative and positive results. New technologies such as liquid based sampling may decrease but will not eliminate all false negative results. Regular screening and follow-up of unexplained clinical signs and symptoms are recommended to minimize false negative results. Please see the ASCCP website (www.asccp.org) for followup recommendations. If HPV testing was requested, correlation with the results is suggested (please call Microbiology at [phone] for results). CLINICAL INFORMATION: Menstrual History: Cyclic Date of Last Menstrual Period: 05/17/06 Contraceptive History: control pills Other Clinical Conditions: Clinical information indicates patient has high risk factor(s). SPECIMEN DESCRIPTION: A: THIN PREP (CERVICAL/VAGINAL) THIN PREP PROCESS CELLULAR ENHANCEMENT ICD: V76.2 CERVIX, SPECIAL SCREENING FOR MALIGNANT NEOPLASM V15.89 OTHER PERSONAL HISTORY PRESENT HAZARDS TO HEALTH F: A; [address] [facility] SNOMED CODES: A; [id number] In cases where a pathologist has signed out the report, the service has been rendered in part by a resident. The signing pathologist has performed and is responsible for the reported pathologic evaluation. us Historical Provider LAB PATHOLOGY ORDERABLES Fin al Result [facility] from Last 3 Months or Most Recently Relevant to Health Maintenance Insurance ANTH Care Teams Aviation Engineer Relationship Specialty Start Date End Date Sandro Sebastian MD [address] [place] [id number] PCP - General 01/27/21
--- OUTSIDE RECORDS SUMMARY | 2025-05-21 08:41 | XMS_ITS | Clinical Summary ---
Author Organization [facility] Address [address] [place] [address] Care Team Providers Care Center Punch Operator Name Role Phone Sandro Sebastian MD Primary Care Provider [phone] Allergies Active Allergy Reactions Criticality Noted Date Comments Penicillin V Other (See Comments) Low 02/14/2023 rash Penicillins Rash Low 01/07/2019 Medications glycopyrrolate (ROBINUL) 1 MG tablet Take 1 tablet by mouth 4 (Four) Times a Day. Hyperhydrosis Active Loratadine 10 MG capsule Take 1 capsule by mouth Daily. Active gabapentin (NEURONTIN) 300 MG capsule Take 2 capsules by mouth 3 (Three) Times a Day. Active busPIRone (BUSPAR) 10 MG tablet Take 3 tablets by mouth 2 (Two) Times a Day. Active hydrOXYzine (ATARAX) 50 MG tablet Take 1 tablet by mouth 3 times a day. Pt only takes 2x day Active LORazepam (ATIVAN) 1 MG tablet Take 1 tablet by mouth 3 (Three) Times a Day. Active NON FORMULARY Auvelity 45 mg bid Active traZODone (DESYREL) 50 MG tablet Take 3 tablets by mouth Every Night. 3 Active Cholecalcifero l 10 MCG (400 UNIT) tablet Take 1 tablet by mouth Daily. Active docusate sodium 100 MG capsule Take 1 capsule by mouth 2 (Two) Times a Day. 60 capsule 4 Active Jardiance 10 MG tablet tablet Take 1 tablet by mouth Daily. 4 Active spironolactone (ALDACTONE) 25 MG tablet Take 1 tablet by mouth Daily. Active Entresto 49-51 MG tablet Take 1 tablet by mouth 2 (Two) Times a Day. Active rosuvastatin (CRESTOR) 40 MG tablet Take 1 tablet by mouth Every Night. Active metoprolol succinate XL (TOPROL-XL) 25 MG 24 hr tablet Take 1 tablet by mouth Daily. Active Active Problems Problem Noted Date Diagnosed Date Abnormal cardiovascular stress test 01/06/2024 Abnormal ECG 01/06/2024 Abnormal echocardiogram 01/06/2024 Dyspnea 01/06/2024 Edema of both lower extremities 01/06/2024 Family history of ischemic heart disease (IHD) 0 01/06/2024 Fatigue 01/06/2024 Renal colic on right side 01/06/2024 Umbilical hernia 01/06/2024 Gestational diabetes mellitus (GDM), delivered 0 01/06/2024 Assessment & Plan (01/06/2024 4:23 PM EDT): Recheck yearly Planning to pursue weight reduction surgery Screen cushings- central weight gain, cervical fat pad and round face Cushingoid facies 01/06/2024 Assessment & Plan (01/06/2024 4:24 PM EDT): Screening salivary cortisol (normal spontaneous vaginal delivery) 11/20 Gestational diabetes mellitus (GDM), antepartum 10/08/2023 Assessment & Plan (11/12/2023 2:09 PM EST): Currently being followed by endocrinology. Patient did not bring blood sugars for review with endocrinology. Patient states that her postprandials in the 130s to 140s. Patient currently on 4 units of insulin with meals. We discussed the importance of compliance especially within a week of delivery. Given questionable compliance with gestational diabetes in combination of previous IUFD at 35 weeks would consider delivery at 36 to 37 weeks gestation. We did discuss the increased likelihood of NICU admission for respiratory distress or hypoglycemia with earlier deliveries. Assessment & Plan (11/11/2023 1:25 PM EST): Blood sugar and 90 day average sugar reviewed Results for orders placed or performed in visit on 11/11/23 POC Glycosylated Hemoglobin (Hb A1C) Specimen: Blood Result Value Ref Range Hemoglobin A1C 5.9 (A) 4.5 - 5.7 % Lot Number [id number] Expiration Date 07/07/25 POC Glucose, Blood Specimen: Blood Result Value Ref Range Glucose 80 70 - 130 mg/dL Average sugar is high and current sugars are uncontrolled Discussed raising insulin dose and she will email sugars in 1-2 days Goals reviewed Rationale for goals and risk of uncontrolled diabetes for her and baby discussed Reinforced monitoring and prompt evaluation for any changes discussed Return in about 9 weeks (around 01/13/2024) for Recheck. Assessment & Plan (10/10/2023 2:06 PM EST): With high average sugar c/w prediabetes and high pp sugars Stared insulin prior to meals Email sugars weekly / message via [employer] She will begin testing sugars fasting and 2 hours after meals and will fax blood sugars weekly to [email or web address]. We will plan to see her back in 3- 4 weeks, or sooner if problems or questions. Thank you for this referral and please do not hesitate to call for any problems or questions. assisted management with help with weight loss pp discussed Second trimester 07/27/2023 History of pre-eclampsia in prior , currently in first trimester 06/04/2023 Assessment & Plan (06/04/2023 12:09 PM EDT): We discussed that given her history of preeclampsia she is at increased risk of developing preeclampsia during this . We discussed that 81 mg of aspirin can potentially reduce the risk of preeclampsia. Encourage patient that this can be started after the first trimester. Severe episode of recurrent major depressive disorder, without psychotic features 02/19/2023 Assessment & Plan (08/12/2023 4:02 PM EST): Patient with history of major depressive disorder and PTSD with previous suicide attempt. Patient has continued on previously discussed medications except for intranasal ketamine. Patient states that her anxiety and depression have been worsening recently has discussed this with her psychiatrist. Patient reports taking medications left available to try. Patient continues to expressed desire for potential intranasal ketamine. Once again we discussed limited information regarding intranasal ketamine. We did discuss the potential for increase in blood pressure which could cause issues. We discussed increased risk of stroke, cardiac dysfunction, abruption, and potentially . We also discussed that if patient starts having SI given patient's history treatment could outweigh the potential risks. Encourage patient to continue discussing different options with psychiatrist. We would be happy to have further discussion of other medications if psychiatrist thinks could be of benefit. Patient denies current SI or HI. Assessment & Plan (06/04/2023 12:02 PM EDT): Patient on multiple medications to control her illness. She follows with the team of psychiatrist. Patient states she overall is okay currently though if thoughts safe would like to restart intranasal ketamine. Again we discussed lack of data in and balancing risks versus benefits of medication. We discussed lowest doses of fewest medications as best in . Assessment & Plan (02/19/2023 12:19 PM EDT): We reviewed in detail the patient's extensive psychiatric history. In general, medication exposure in must be balanced with the risk of maternal disease exacerbation. We reviewed each of her current psychotropic medications. Gabapentin is not associated with any particular pattern of congenital anomalies though can be associated with withdrawal. Buspar and Hydroxyzine are considered compatible with . Ativan has been loosely and inconsistently associated with cleft lip/palate and can also be associated with withdrawal. There is insufficient data to evaluate the safety profile of both Auvelity and Ketamine in . I strongly encourage the patient to meet with her psychiatric provider to review her medication regimen. It is not inappropriate to remain on her medications though I stressed the fact that there is an unknown or increased risk to some of these medications. History of stillbirth 02/19/2023 Assessment & Plan (11/12/2023 2:10 PM EST): Recommend continued twice weekly testing Assessment & Plan (09/19/2023 3:45 PM EST): Patient returns today for follow-up for previous 35-week intrauterine demise. She has a history of preeclampsia in previous . Patient reports somewhat decreased movement today. Ultrasound today demonstrates a fetus that is entirely normally grown. No abnormalities were seen. Amniotic fluid volume and umbilical artery Dopplers are normal. Fetus appears very active on ultrasound today and patient notes mood movement as were watching. Patient's demise was most likely result of a cord accident and if so would not increase her risk of demise this . As it is never possible to be certain of etiology for a demise we would recommend testing starting at 30 to 32 weeks gestation at the latest and continued until delivery. Patient was counseled extensively regarding movement will contact her provider immediately if she notices any decreased movement. We will rescan the fetus again in 4 weeks to assess growth and umbilical artery Dopplers. Assessment & Plan (02/19/2023 12:22 PM EDT): We reviewed her prior . It appears that the workup was limited. I recommend sending the following when you see Ms Mancini in follow up (she declined today): TSH, HbA1C, beta 2 glycoprotein IgG/IgM, lupus anticoagulant, Anticardiolipin IgG/IgM. If any of these are positive, please reach out to me for management guidelines. Recommend testing in the third trimester for any future with delivery at 37 - 39 weeks GA. Stress-induced cardiomyopathy 02/19/2023 Assessment & Plan (08/12/2023 3:59 PM EST): Previously recommended cardiology evaluation and maternal echo. Would recommend repeat echo around 32 weeks. Patient has yet to follow up. Encouraged compliance. Assessment & Plan (06/04/2023 12:00 PM EDT): Patient states this is after her previous IUFD. She followed with a pulley maintainer at that time. She reports an echo done in November of this year that was normal. Most literature regarding cardiomyopathy during or recently has not included stress-induced cardiomyopathy. Literature related to cardiomyopathy she has increased maternal risk if there is not recovery of ejection fraction. Given her normal echo patient is at decreased risk. Encourage patient to follow-up with pulley maintainer and would likely need an echo early in and again closer to the third trimester. Assessment & Plan (02/19/2023 12:26 PM EDT): There is a relative paucity of data regarding stress induced cardiomyopathy and subsequent . Extrapolating from data regarding peripartum cardiomyopathy, early improvement in ejection fraction (i.e., within the first 3-6 months) predicts a good outcome. The risk of likely depends on the recovery of heart function after the diagnosis of cardiomyopathy (Ms Mensah was normal) For women with a persistently reduced ejection fraction, there is a substantial risk of heart failure and even . Monitoring during and should include questioning concerning symptoms of cardiomyopathy including fatigue, shortness of breath and fluid retention. Serial assessment of cardiac function by echocardiogram is also indicated with an ideal ejection fraction from 50-70%. This should be done early in and again at approximately 32 weeks GA. Advanced maternal age in multigravida 02/19/2023 Assessment & Plan (06/04/2023 12:05 PM EDT): NT today within normal limits. We discussed increased risk of aneuploidy given advanced maternal age. Genetic testing options were discussed and patient had previously decided to pursue NIPT in your office and she reports this is to be drawn today. Chronic constipation 12/12/2022 Vapes nicotine containing substance 12/12/2022 Gastroesophageal reflux disease without esophagi tis 11/05/2022 Mixed anxiety and depressive disorder 11/05/2022 Sinus tachycardia 11/05/2022 Medication exposure during first trimester of pr egnancy 01/07/2019 Assessment & Plan (06/04/2023 12:08 PM EDT): Patient currently on multiple different medications. Patient previously seen for preconception counseling. We discussed that gabapentin is not associated with congenital anomalies though can be associated with withdrawal. Lorazepam has been loosely and inconsistently associated with cleft lip/palate and can also be associated with withdrawal. Buspar and Hydroxyzine are thought to be considered safe in . We discussed that there is insufficient data to evaluate the safety profile of both Auvelity and Ketamine in . Again we discussed balancing risk with multiple different medications, some with unknown safety profiles, and benefits of improved mood and functionality. Chronic hypertension in 01/07/2019 Resolved Problems Problem Noted Date Diagnosed Date Resolved Date 36 weeks gestation of 11/21/2023 11/21/2023 35 weeks gestation of 04/06/2021 09/19/2023 IUFD at 20 weeks or more of gestation 04/06/2021 09/19/2023 Assessment & Plan (08/12/2023 3:10 PM EST): History of 35-week IUFD likely secondary to nuchal cord. Further evaluation including antiphospholipid syndrome has been negative. Plan for every 4-week growth ultrasound. Recommend testing at 32 weeks. Assessment & Plan (06/04/2023 12:04 PM EDT): Patient with previous IUFD. Work-up appears to be negative though some aspects of work-up were missing. During preconception counseling the following tests were recommended to complete work-up: TSH, HbA1C, beta 2 glycoprotein IgG/IgM, lupus anticoagulant, Anticardiolipin IgG/IgM. I do not have records of these currently, if these have not been performed please draw these today. If any of these are positive, please reach out for management guidelines. Recommend testing in the third trimester for any future with delivery at 37 - 39 weeks GA. we will also follow with serial growth ultrasounds after detailed anatomy. (normal spontaneous vaginal delivery) 07/01/2019 09/19/2023 Gestational hypertension wit hout significant proteinuria in third trimester 06/30/2019 9 37 weeks gestation of 06/30/2019 07/02/2019 06/23/2019 04/06/2021 Encounters Date Type Department Care Team Description 04/21/2025 4:30 PM EDT Lab [facility] [address] [place] [address] Secondary oligomenorrhea 04/21/2025 Travel from Last 3 Months Immunizations Immunization Administration Dates Next Due Influenza, Unspecified 07/02/2018,07/12/2016 Family History Medical History Relation Name Comments Leukemia Father Breast cancer Maternal Aunt Breast cancer Paternal Grandmother Relation Name Status Comments Father Maternal Aunt Alive Paternal Grandmother Social History Tobacco Use Types Packs/Day Years Used Date Smoking Tobacco: Former Cigarettes 1 10 0 12/15/2008 - 12/15/2018 Smokeless Tobacco: Never Tobacco Cessation:Counseling Given: Yes Comments:Nicotine gum occasionally, No cigerarette use since 2021, Vape up un til found out she was , Nicotine pouches usage 4-5 times daily this Alcohol Use Standard Drinks/Week Comments Not Currently 0 (1 standard drink = 0.6 oz pur e alcohol) [facility] Utilities Answer Date Recorded In the past 12 months has th e electric, gas, oil, or water company threatened to shut off services in your [...] and heating? Not hard at all 11/20/2023 [facility] - Occupational Stress Questionnaire Answer Date Recorded [...] things needed for daily living? No 11/20/2023 [place] Depression Scale Answer Date Recorded Retired [place] Depression Score 20 12/04/2023 Retired EPD Scale: [...] GED or equivalent No 11/20/2023 Preferred Language Dive[place] 11/20/2023 PHQ-2 Answer Date Recorded Retired PHQ-9: Brief Depression Severity Measure Score 3 11/20/2023 Comments No Sex and Gender Information Value Date Recorded Sex Assigned at Not on file Legal Sex Female 10:19 AM EDT Gender Identity Not on file Sexual Orientation Not on file Last Filed Vital Signs Vital Sign Reading Time Taken Comments Blood Pressure 100/60 01/06/2024 3:51 PM EDT Pulse 50 01/06/2024 3:51 PM EDT Temperature 36.8 C (98.3 F) 11/23/2023 7:30 AM EST Respiratory Rate 18 11/23/2023 7:30 AM EST Oxygen Saturation 96% 01/06/2024 3:51 PM EDT Inhaled Oxygen Concentration - - Weight 93.4 kg (205 lb 12.8 oz) 01/06/2024 3:51 PM EDT Height 162.6 cm (5' 4 ) 01/06/2024 3:51 PM EDT Body Mass Index 35.33 01/06/2024 3:51 PM EDT Plan of Treatment Health Maintenance Due Date Last Done Comments Annual Gynecologic Pelvic and Breast Exam 1987 TDAP/TD VACCINES (1 - Tdap) 12/20/2006 ANNUAL PHYSICAL 01/07/2019 COVID-19 Vaccine (3 - season) 2025 09/07/2021, 08/07/2021 INFLUENZA VACCINE 06/16/2025 07/02/2018, 07/12/2016 HEPATITIS C SCREENING Completed 03/30/2025 , 03/30/2025, 06/04/2023, Additional history exists Pneumococcal Vaccine 0-49 Aged Out No longer eligible based on patient's age to complete this topic Medical Devices Implanted Type Area Quality Assurance Test Program Manager Device Identifier Shelf Expiration Date Model / Serial / Lot Implant Implant Mouth Procedures Procedure Name Priority Date/Time Associated Diagnosis Comments PROLACTIN Routine 04/21/2025 4:04 PM EDT Secondary oligomenorrhea TSH RFX ON ABNORMAL TO FREE T4 Routine 04/21/2025 4:04 PM EDT Secondary oligomenorrhea FOLLICLE STIMULATING HORMONE Routine 04/21/2025 4:04 PM EDT Secondary oligomenorrhea ESTRADIOL Routine 04/21/2025 4:04 PM EDT Secondary oligomenorrhea HEPATITIS C ANTIBODY Routine 06/04/2023 1:54 PM EDT , unspecified gestational age 12 weeks gestation of from Last 3 Months or Most Recently Relevant to Health Maintenance Results * TSH Rfx On Abnormal To Free T4 (04/21/2025 4:04 PM EDT) TSH 1.400 0.270 - 4.200 uIU/mL 04/21/2025 11:50 PM EDT [facility] Blood Venipuncture / Unknown 04/21/2025 4:04 PM EDT 04/21/2025 4:04 PM EDT Tesha Card MD LAB BLOOD ORDERABLES Final R esult Performing Organization Address City/[facility]/ZIP Co de Phone Number [facility]
[address] [place] [address], * Prolactin (04/21/2025 4:04 PM EDT) Prolactin 21.70 4.79 - 23.30 ng/mL 04/21/2025 11:50 PM EDT [facility] Blood Venipuncture / Unknown 04/21/2025 4:04 PM EDT 04/21/2025 4:04 PM EDT [facility] - 04/21/2025 11:50 PM EDT Results may be falsely decreased if patient taking Biotin. Tesha Card MD LAB BLOOD ORDERABLES Final R esult Performing Organization Address City/[facility]/ZIP Co de Phone Number [facility]
[address] [place] [address], * Estradiol (04/21/2025 4:04 PM EDT) Estradiol 52.0 pg/mL 04/21/2025 11:50 PM EDT [facility] Blood Venipuncture / Unknown 04/21/2025 4:04 PM EDT 04/21/2025 4:04 PM EDT [facility] - 04/21/2025 11:50 PM EDT Estradiol Reference Ranges: Adult Males: 7.6-42.6 pg/mL Adult Femles: Follicular phase 12.5-166.0 pg/mL Ovulation phase 85.8-498.0 pg/mL Luteal phase 43.8-211.0 pg/mL Postmenopausal <6.0-54.7 pg/mL : First Trimester 215.0- >4300.0 pg/mL Child (1-10 years): Male <6.0-20.0 pg/mL Female 6.0-27.0 pg/mL Results may be falsely increased if patient taking Biotin. Tesha Card MD LAB BLOOD ORDERABLES Final R esult [facility]
[address] [place] [address], * Follicle Stimulating Hormone (04/21/2025 4:04 PM EDT) FSH 12.70 mIU/mL 04/21/2025 11:50 PM EDT [facility] Blood Venipuncture / Unknown 04/21/2025 4:04 PM EDT 04/21/2025 4:04 PM EDT Narrative [facility] - 04/21/2025 11:50 PM EDT FSH Reference Ranges: Adult Males: 1.5-12.4 mIU/mL Adult Females: Folicular Phase 3.5-12.5 mIU/ml Ovulation Phase 4.7-21.5 mIU/ml Lutal Phase 1.7-7.7 mIU/ml Postmenopausal 25.8-134.8 mIU/ml Tesha Card MD LAB BLOOD ORDERABLES Final R esult Performing Organization Address City/[facility] Co de Phone Number [facility]
[address] [place] [address], from Last 3 Months Insurance Advance Directives * CPR (Attempt to Resuscitate) (Latest Code Status on File) Date Activated Date Inactivated Comments 11/21/2023 3:05 PM 11/23/2023 5:48 PM Question Answer Comments Code Status (Patient has no pulse and is not breathing): CPR (Attempt to Resuscitate) Medical Interventions (Patie nt has pulse or is breathing): Full * CPR (Attempt to Resuscitate) Date Activated Date Inactivated Comments 11/20/2023 8:04 PM 11/21/2023 3:05 PM Question Answer Comments Code Status (Patient has no pulse and is not breathing): CPR (Attempt to Resuscitate) Medical Interventions (Patie nt has pulse or is breathing): Full Support Level Of Support Discussed With: Patient * CPR (Attempt to Resuscitate) Date Activated Date Inactivated Comments 04/06/2021 10:08 PM 04/07/2021 1:39 PM Question Answer Comments Code Status (Patient has no pulse and is not breathing): CPR (Attempt to Resuscitate) Medical Interventions (Patie nt has pulse or is breathing): Full * CPR (Attempt to Resuscitate) Date Activated Date Inactivated Comments 07/01/2019 3:05 AM 07/02/2019 4:53 PM Question Answer Comments Code Status (Patient has no pulse and is not breathing): CPR (Attempt to Resuscitate) Medical Interventions (Patie nt has pulse or is breathing): Full * CPR (Attempt to Resuscitate) Date Activated Date Inactivated Comments 06/30/2019 4:07 PM 07/01/2019 3:05 AM Question Answer Comments Code Status (Patient has no pulse and is not breathing): CPR (Attempt to Resuscitate) Medical Interventions (Patie nt has pulse or is breathing): Full Care Teams Center Punch Operator Relationship Specialty Start Date End Date Sandro Sebastian MD [address] [place] [address] PCP - General Family Medicine 06/23/19
--- OUTSIDE RECORDS SUMMARY | 2025-05-21 08:41 | XMS_ITS | Encounter Summary ---
Author Organization [facility] Address [address] [place] [address] Care Team Providers Care Investor Name Role Phone Sandro Sebastian MD Primary Care Provider [phone] Encounter Details Date Type Department Care Team (Latest Contact Info) Description 04/21/2025 Travel Social History Tobacco Use Types Packs/Day Years [...] drink = 0.6 oz pur e alcohol) [facility] Utilities Answer Date Recorded In the past 12 months has [employer] electric, gas, oil, or water company threatened [...] and heating? Not hard at all 11/20/2023 [facility] - Occupational Stress [...] things needed for daily living? No 11/20/2023 [place] Depression Scale Answer Date Recorded Retired [place] Depression Score 20 12/04/2023 Retired EPD Scale: [...] GED or equivalent No 11/20/2023 Preferred Language [place] 11/20/2023 PHQ-2 Answer Date Recorded Retired PHQ-9: Brief Depression Severity Measure Score 3 11/20/2023 Comments No Sex and Gender Information Value Date Recorded Sex Assigned at Not on file Legal Sex Female 10:19 AM EDT Gender Identity Not on file Sexual Orientation Not on file documented as of this encounter Plan of Treatment Not on file documented as of this encounter Visit Diagnoses Not on filedocumented in this encounter Additional Health Concerns Assessment Noted Time PHQ-2 Depression Total Score: 3 11/20/19 24 10:18 PM EST documented as of this encounter Care Teams Investor Relationship Specialty Start Date End Date Sandro Sebastian MD [address] [place] [address] PCP - General Family Medicine 06/23/19 documented as of this encounter
--- OUTSIDE RECORDS SUMMARY | 2025-05-21 08:41 | XMS_ITS | Encounter Summary ---
Author Organization [facility] Address [address] [place] [address] Care Team Providers Care Cyber Security Architect Name Role Phone Sandro Sebastian MD Primary Care Provider [phone] Encounter Details Date Type Department Care Team (Latest Contact Info) Description 03/30/2025 Travel Social History Tobacco Use Types Packs/Day [...] on file documented as of this encounter Functional Status * Over the past 2 weeks, how often have you been bothered by any of the following problems? Question Answer Date of Assessment Author Patient Health Questionnaire -2 Score 6 03/30/2025 5:44 PM EDT Betsy Ellsworth RN * If you checked off any problems on this questionnaire, Question Answer Date of Assessment Author How difficult have these problems made it for you to do your work, take care of things at home, or get along with other people? Very difficult 03/30/2025 5:44 PM EDT Betsy Ellsworth , RN * Over the past 2 weeks, [...] 03/30/2025 5:44 PM EDT Betsy Ellsworth RN documented as of this encounter Plan of Treatment Upcoming Encounters Date Type Department Care Team (Late st Contact Info) Description 06/03/2025 3:30 PM EDT Appointment Medical Office Building Cardiac Diagnostic Testing Medical Office Building Echo Lab [address] [facility], [address] [place] [address] documented as of this encounter [...] documented as of this encounter Care Teams Cyber Security Architect Relationship Specialty Start Date End Date Sandro Sebastian MD [address] [place] [address] PCP - General 01/27/21 documented as of this encounter
--- OUTSIDE RECORDS SUMMARY | 2025-05-21 08:42 | XMS_ITS | Encounter Summary ---
Author Organization [facility] Address [address] [place] [address] Care Team Providers Care Pediatric Dentist Name Role Phone Sandro Sebastian MD Primary Care Provider [phone] Encounter Details Date Type Department Care Team (Late st Contact Info) Description 11/27/2023 Orders Only External Location [address] [place] [address] Provider, External Social History Tobacco Use Types Packs/Day Years Used Date Smoking Tobacco: Former Cigarettes Smokeless Tobacco: Never Alcohol Use Standard Drinks/Week Comments Yes 0 (1 standard drink = 0.6 oz pure alcohol) Alcoholic Drinks/day: Minimum alcohol consumption PHQ-2 Answer Date Recorded Patient Health Questionnaire-2 Score 6 09/25/2022 PHQ-9 Answer Date Recorded Patient Health Questionnaire-9 Score 24 09/25/2022 PHQ-2A Answer Date Recorded Patient Health Questionnaire-2 Score 6 09/25/2022 Comments Unknown Sex and Gender Information Value Date Recorded [...] Medical Office Building Echo Lab [address], [address] [place] [address] documented as of this encounter Procedures Procedure Name Priority Date/Time Associated Diagnosis Comments XR OUTSIDE IMAGES 11/27/2023 10:18 AM EDT documented in this encounter Results * XR OUTSIDE IMAGES (11/27/2023 10:18 AM EDT) Anatomical Region Laterality Modality Radiographic Angela ging 11/27/2023 10:1 8 AM EDT us External Provider IMG XR PROCEDURES Final Result documented in this encounter Visit Diagnoses Not on filedocumented in this encounter Additional Health Concerns Assessment Noted Time PHQ-9 Depression Total Score: 24 023 12:42 PM EST documented as of this encounter Care Teams Pediatric Dentist Relationship Specialty Start Date End Date Sandro Sebastian MD [address] [place] [address] PCP - General 01/27/21 documented as of this encounter
--- OUTSIDE RECORDS SUMMARY | 2025-05-21 08:42 | XMS_ITS | Encounter Summary ---
Author Organization [employer] ([place], [place], [place], [place]) Address [address] [place] [address] Care Team Providers Care Hydro Electric Station Operator Name Role Phone Sandro Sebastian Primary Care Provider Unavailabl e Encounter Details Date Type Department Care Team (Late st Contact Info) Description 11/01/2022 Outside Orders [facility] [address] [place] [address] Sylvie Kenny, AIRSET MOLDER [address] [place] [address] Fecal impaction of colon (HCC) (Primary Dx) Social History Tobacco Use Types Packs/Day Years Used Date Smoking Tobacco: Never Assessed Comments Unknown Sex and Gender Information Value Date Recorded Sex Assigned at Not on file Legal Sex Female 6:06 PM CDT Gender Identity Not on file Sexual Orientation Not on file COVID-19 Exposure Response Date Recorded In the last 10 days, have yo u been in contact with someone who was confirmed or suspected to have Coronavirus/COVID-19? No / Unsure 11/01/2022 6:00 PM EST documented as of this encounter Plan of Treatment Not on file documented as of this encounter Visit Diagnoses Diagnosis Fecal impaction of colon (HCC)- Primary Other impaction of intestine documented in this encounter Care Teams Hydro Electric Station Operator Relationship Specialty Start Date End Date Sandro Sebastian [address] [place] [address] PCP - General 11/01/22 documented as of this encounter
--- OUTSIDE RECORDS SUMMARY | 2025-05-21 08:42 | XMS_ITS | Encounter Summary ---
Author Organization [facility] Address [address] [place] [address] Care Team Providers Care Tuber Machine Cutter Name Role Phone Sandro Sebastian MD Primary Care Provider [phone] Encounter Details Date Type Department Care Team (Late Contact Info) Description 11/22/2023 Lab Requisition [facility] [address] [place] [address] Aramis Felix, MARINE EQUIPMENT PRESERVATION INSPECTOR, CNM [address] [facility] [address] [place], [place] [id number] Encounter for general adult medical examination without abnormal findings Social History Tobacco Use Types Packs/Day Years [...] Encounters Date Type Department Care Team (Late Contact Info) Description 06/03/2025 3:30 PM EDT Appointment Medical Office Building Cardiac Diagnostic Testing Medical Office Building Echo Lab [address] [facility], [address] [place] [address] documented as of this encounter Procedures Procedure Name Priority Date/Time Associated Diagnosis Comments BENZODIAZEPINE, URINE, QUANTITATIVE STAT 11/21/2023 2:30 PM EST Encounter for general adult medical examination without abnormal findings documented in this encounter Results * (ABNORMAL) Benzodiazepine, urine, quantitative (11/21/2023 2:30 PM EST) [facility] [place] Alprazolam <20 <20 ng/mL 11/22 7:07 PM EST [facility] [place] Midazolam <20 <20 ng/mL 2023 7:07 PM EST [facility] [place] Triazolam <20 <20 ng/mL 2023 7:07 PM EST [facility] Alprazolam <10 <10 ng/mL 11/23/2023 7:07 PM EST [facility] Aminoclonazepam <20 <20 ng/mL 7:07 PM EST [facility] Clonazepam <10 <10 ng/mL 11/23/2023 7:07 PM EST [facility] Diazepam <10 <10 ng/mL 11/23/2023 7:07 PM EST [facility] Lorazepam <20 <20 ng/mL 11/23/2023 7:07 PM EST [facility] Lorazepam Glucuronide >1,000(H) <50 ng/mL 11/23/2023 7:07 PM EST [facility] Midazolam 11/23/2023 7:07 PM EST [facility] Nordiazepam <20 <20 ng/mL 11/23/2023 7:07 PM EST [facility] Oxazepam <20 <20 ng/mL 11/23/2023 7:07 PM EST [facility] Oxazepam Glucuronide <50 <50 ng/mL 11/23/2023 7:07 PM EST [facility] Temazepam <20 <20 ng/mL 11/23/2023 7:07 PM [facility] Temazepam Glucuronide <50 <50 ng/mL 11/23/2023 7:07 PM EST [facility] Triazolam 11/23/2023 7:07 PM [facility] Urine Urine specimen obtained by clean catch procedure / Unknown 11/21/2023 2:30 PM EST 11/22/2023 9:32 AM EST Narrative [facility] - 11/23/2023 7:07 PM EST Drug analysis is confirmed by LC-MS/MS (LC Tandem Mass Spectrometry) on Urine specimens. This test was developed and its performance characteristics determined by [facility]. It has not been cleared or approved by the FDA. The laboratory is regulated under CLIA as qualified to perform high-complexity testing. This test is used for clinical purposes. Testing is performed at the [facility], Special [facility] Laboratory. us Aramis Felix APRN, CNM LAB URINE ORDERABLES Fi nal Result [facility] [address] [place] [address] documented in this encounter Visit Diagnoses Diagnosis Encounter for general adult medical examination without abnormal findings documented in this encounter Additional Health Concerns Assessment Noted Time PHQ-9 Depression Total Score: 24 023 12:42 PM EST documented as of this encounter Care Teams Tuber Machine Cutter Relationship Specialty Start Date End Date Sandro Sebastian MD [address] [place] [address] PCP - General 01/27/21 documented as of this encounter
--- OUTSIDE RECORDS SUMMARY | 2025-05-21 08:42 | XMS_ITS | Clinical Summary ---
Author Organization [employer] ([place], [place], [place], [place]) Address [address] [place] [address] Care Team Providers Care Lunchroom Monitor Name Role Phone Sandro Sebastian Primary Care Provider Unavailabl e Allergies Active Allergy Reactions Criticality Noted Date Comments Penicillin 11/26/2022 Medications busPIRone (BUSPAR) 15 MG tablet Take 1 tablet (15 mg total) by mouth 3 (three) times daily. 11/12/2022 Active carvediloL (COREG) 6.25 MG tablet Take 1 tablet (6.25 mg total) by mouth 2 (two) times daily. 11/05/2022 Active diazePAM (VALIUM) 10 MG tablet Take 1 tablet (10 mg total) by mouth. 10/24/2022 Active gabapentin (NEURONTIN) 300 MG capsule Take 2 capsules (600 mg total) by mouth 3 (three) times daily. 11/16/2022 Active glycopyrrolate (ROBINUL) 2 MG tablet Take 1 tablet (2 mg total) by mouth 4 (four) times daily. 11/22/2022 Active hydrOXYzine (ATARAX) 25 MG tablet Take 1-2 tablets (25-50 mg total) by mouth every 6 (six) hours. 11/15/2022 Active lactulose (CHRONULAC) 10 gram/15 mL solution Take by mouth. 11/01/2022 Active LORazepam (ATIVAN) 1 MG tablet Take 1 tablet (1 mg total) by mouth 3 (three) times daily as needed. 11/17/2022 Active omeprazole (PriLOSEC) 40 MG capsule Take 1 capsule (40 mg total) by mouth once. 11/22/2022 Active Auvelity 45-105 mg TbIE Take 2 tablets by mouth daily. 04/09/2023 Active Active Problems Problem Noted Date Diagnosed Date Chronic constipation 12/12/2022 Takotsubo syndrome 12/12/2022 Vapes nicotine containing substance 12/12/2022 Family History Relation Name Status Comments Father Alive Mother Alive Social History Tobacco Use Types Packs/Day Years Used Date Smoking Tobacco: Never Smokeless Tobacco: Current Tobacco Cessation:Ready to Q uit: No; Counseling Given: Not Answered Alcohol Use Standard Drinks/Week Comments Never 0 (1 standard drink = 0.6 oz pur e alcohol) Food Insecurity Answer Date Recorded Food run out past 12 months Not on file 09/16 Food did not last past 12 months Not on file 10/04/2023 Employment Answer Date Recorded Help finding and keeping a job Not on file 0 10/04/2023 Family and Community Support Answer Maih e Recorded Help with Day to Day Activities Not on file 10/04/2023 Feeling Lonely or Isolated Not on file 10/04 Educational Attainment Answer Date Sal rded Speak language other than Syrian at home Not on file 10/04/2023 Want help with school or training Not on file 10/04/2023 Substance Use Answer Date Recorded Used prescription meds for non-medical reasons N ot on file 10/04/2023 Used illegal drugs past 12 months Not on file 10/04/2023 Comments No Sex and Gender Information Value Date Recorded Sex Assigned at Not on file Legal Sex Female 6:06 PM CDT Gender Identity Not on file Sexual Orientation Not on file Last Filed Vital Signs Vital Sign Reading Time Taken Comments Blood Pressure 125/83 04/10/2023 1:38 PM EDT Pulse 120 04/10/2023 1:38 PM EDT Temperature 36.3 C (97.4 F) 12/12/2022 8:00 AM EDT Respiratory Rate 18 12/12/2022 8:30 AM EDT Oxygen Saturation 95% 12/12/2022 8:30 AM EDT Inhaled Oxygen Concentration - - Weight 82.6 kg (182 lb) 04/10/2023 1:38 PM EDT Height 162.6 cm (5' 4 ) 04/10/2023 1:38 PM EDT Body Mass Index 31.24 04/10/2023 1:38 PM EDT Plan of Treatment Health Maintenance Due Date Last Done Comments Depression Screening (12+) 1999 HIV Screening 12/20/2002 Hepatitis C Screening 12/20/2005 DTAP/TDAP/TD VACCINES (1 - Tdap) 12/20/2006 Pneumococcal Vaccine: 0-49 Y ears (1 of 2 - PCV) 12/20/2006 Lipid Panel 2007 Pap Smear 12/20/2008 Tobacco Cessation Counseling and Screening (12+) 12/13/2023 12/12/2022 COVID-19 VACCINE (3 - 2023- season) 2024, 08/07/2021 Influenza Vaccine (#1) 2025 Insurance BLUE CROSS/BLUE SHIELD Advance Directives For more information, please contact: [phone] * Full Code (Latest Code Status on File) Date Activated Date Inactivated Comments 12/12/2022 6:00 AM 12/12/2022 9:56 AM -Attempt Res uscitation if person has no pulse and is not breathing. -If no pulse or not breathing attempt CPR/CODE. -Call Rapid Response if patient is in distress. Care Teams Lunchroom Monitor Relationship Specialty Start Date End Date Sandro Sebastian [address] [place] [address] PCP - General 11/01/22
--- OUTSIDE RECORDS SUMMARY | 2025-05-21 08:42 | XMS_ITS | Clinical Summary ---
Author Organization [facility] Address [address] [facility] [address] [place] [address] Care Team Providers Care Corsage Maker Name Role Phone Unavailable Primary Care Provider Unavailabl e Social History Tobacco Use Types Packs/Day Years Used Date Smoking Tobacco: Never Assessed Comments Unknown Sex and Gender Information Value Date Recorded Sex Assigned at Not on file Legal Sex Female 11:26 AM EDT Gender Identity Not on file Sexual Orientation Not on file Plan of Treatment Health Maintenance Due Date Last Done Comments HIV Screening 1987 Hepatitis C Screening 1987 MMR Vaccines (1 of 1 - Stand xander series) 12/20/1988 Varicella Vaccines (1 of 2 - 13+ 2-dose series) 12/20/2000 Hepatitis B Screening 12/20/2005 DTaP/Tdap/Td Vaccines (1 - Tdap) 12/20/2006 Hepatitis B Vaccines (1 of 3 - 19+ 3-dose series) 12/20/2006 Pap Smear 12/20/2008 Cervical Cancer Screening 12/20/2017 HPV/Cotest 12/20/2017 COVID-19 Vaccine (1 - 2023-2 5 season) 2024 Depression Risk Screening 09/16/2024 SDOH Screening 09/16/2024 Influenza Vaccine (#1) 2025 Zoster Vaccines (1 of 2) 12/20/2037 HIB Vaccines Aged Out No longer eligi ble based on patient's age to complete this topic HPV Vaccines Aged Out No longer eligi ble based on patient's age to complete this topic Hepatitis A Vaccines Aged Out No long er eligible based on patient's age to complete this topic IPV Vaccines Aged Out No longer eligi ble based on patient's age to complete this topic Meningococcal B Vaccine Aged Out No l onger eligible based on patient's age to complete this topic Meningococcal Vaccine Aged Out No candelario bradley eligible based on patient's age to complete this topic Pneumococcal Vaccine Aged Out No long er eligible based on patient's age to complete this topic Rotavirus Vaccines Aged Out No longer eligible based on patient's age to complete this topic
--- OUTSIDE RECORDS SUMMARY | 2025-05-21 08:42 | XMS_ITS | Encounter Summary ---
Author Organization [facility] Address [address] [place] [address] Care Team Providers Care Chuck Tender Name Role Phone Sandro Sebastian MD Primary Care Provider [phone] Encounter Details Date Type Department Care Team (Late Contact Info) Description 04/06/2021 Lab Requisition [facility] Lab [address] [place] [address] Braxton Ballesteros MD [address] [facility] [address] [place], [place] [id number] Encounter for general adult medical examination without abnormal findings Social History Tobacco Use Types Packs/Day Years Used Date Smoking Tobacco: Every Day Alcohol Use Standard Drinks/Week Comments Yes 0 (1 standard drink = 0.6 oz pure alcohol) Alcoholic Drinks/day: Minimum alcohol consumption Comments Unknown Sex and Gender Information Value Date Recorded Sex Assigned at Not on file Legal Sex Female 8:15 PM EDT Gender Identity Not on file Sexual Orientation Not on file documented as of this encounter Plan of Treatment Upcoming Encounters Date Type Department Care Team ([facility] Contact Info) Description 06/03/2025 3:30 PM EDT Appointment Medical Office Building Cardiac Diagnostic Testing Medical Office Building Echo Lab [address] [facility], [address] [place] [address] documented as of this encounter Procedures Procedure Name Priority Date/Time Associated Diagnosis Comments AMPHETAMINES LCMSMS URINE Routine 04/06/2021 2:07 AM EDT Encounter for general adult medical examination without abnormal findings documented in this encounter Results * (ABNORMAL) Amphetamine Urine Confirm LCMSMS (04/06/2021 2:07 AM EDT) Amphetamine >1,000(H) <50 ng/mL 04/08/2021 4:56 PM EDT [facility] Methamphetamine <50 <50 ng/mL 4:56 PM EDT [facility] MDA <50 <50 ng/mL 04/08/2021 4:56 PM EDT [facility] MDMA <50 <50 ng/mL 04/08/2021 4:56 PM EDT [facility] Urine Urine specimen obtained by clean catch procedure / Unknown 04/06/2021 2:07 AM EDT 04/06/2021 10:10 AM EDT Narrative [facility] - 04/08/2021 4:56 PM EDT Drug analysis is confirmed by LC-MS/MS (LC Tandem Mass Spectrometry) on Urine specimens. This test was developed and its performance characteristics determined by [facility]. It has not been cleared or approved by the FDA. The laboratory is regulated under CLIA as qualified to perform high-complexity testing. This test is used for clinical purposes. Testing is performed at the [facility]. us Braxton Ballesteros MD LAB URINE ORDERABLES Final Res ult [facility] [address] [place] [address] documented in this encounter Visit Diagnoses Diagnosis Encounter for general adult medical examination without abnormal findings documented in this encounter Care Teams Chuck Tender Relationship Specialty Start Date End Date Sandro Sebastian MD [address] [place] [address] PCP - General 01/27/21 documented as of this encounter
--- OUTSIDE RECORDS SUMMARY | 2025-05-21 08:42 | XMS_ITS | Referral Summary ---
Author Organization [employer] ([place], [place], [place], [place]) Address [address] [place] [address] Care Team Providers Care Electrical Plumbing Supervisor Name Role Phone Sandro Sebastian Primary Care [...] syndrome 12/12/2022 Vapes nicotine containing substance 12/12/2022 Social History Tobacco Use Types Packs/Day Years [...] 0 10/04/2023 Family and Community Support Answer Miah e Recorded Help with Day to Day Activities Not on file 10/04/2023 Feeling Lonely or Isolated Not on file 10/04 Educational Attainment Answer Date Sal rded Speak language other than Gibraltarian at home Not on file 10/04/2023 Want [...] 04/10/2023 1:38 PM EDT Plan of Treatment Not on file Insurance BLUE CROSS/BLUE SHIELD Advance Directives For more information, please contact: [phone] * Full Code (Latest Code Status on File) Date Activated Date Inactivated Comments 12/12/2022 6:00 AM 12/12/2022 9:56 AM -Attempt Res uscitation if person has no pulse and is not breathing. -If no pulse or not breathing attempt CPR/CODE. -Call Rapid Response if patient is in distress. Care Teams Electrical Plumbing Supervisor Relationship Specialty Start Date End Date Sandro Sebastian [address] [place] [address] PCP - General 11/01/22
--- OUTSIDE RECORDS SUMMARY | 2025-05-21 08:42 | XMS_ITS | Patient Health Record ---
Author Organization [facility] [place], operated by [facility] Address [address] [place] [address] Care Team Providers Care Safety And Security Officer Name Role Phone Chiqui Gibson Unavailable [phone] Tesha Card Unavailable [phone] Isidro Aramis Unavailable [phone] Shanda Carranza Unavailable [phone] Marisela Avery Unavailable [phone] Maida Reno Unavailable [phone] Allergies Allergen (clinical drug ingredient) Drug/Non Drug Allergy documented on EMR Reaction Allergy Type Onset Date Status PENICILLIN V POTASSI UM (PENICILLIN V POTASSIUM TAB rash Drug Allergy 06/06/2011 Active Results Component Value Reference Range Notes Pap w/reflex HPV Reviewed date:04/30/2025 09:33:30 AM Interpretation:Normal Performing Lab:Moris RIGGINS [facility] - [place] CLIA ID [id number], [address], [address], [place] [address], Director - Vikash Sanchez MD Notes/Report: Any Nucleic Acid Amplification testing is performed on the Telvent Gither. Diagnosis: Negative for intraepithelial lesion or malignancy. AP results FINAL RESCUE INSTRUCTOR CYTOLOGY REPORT DIAGNOSIS: Negative for intraepithelial lesion [...] This specimen has been analyzed by the ThinPrep Imaging System, an interactive computer system which assists the lab in screening of ThinPrep Pap Test slides. Following imaging, the slide was reviewed by a Biofuels Plant Construction Worker and/or Pathologist. Negative Educational Note: The pap screening test aids in the detection of premalignant and malignant states of the cervix. False positive and negative results may occur. It is not a diagnostic test. If abnormal cells are reported, follow-up based on current clinical guidelines and/or clinical consideration is recommended. Tiffany Zimmerman Biofuels Plant Construction Worker CPT Codes: 89657 ICD Codes: Z01.419 TSH RFX ON ABNORMAL TO FREE T4 Reviewed date:04/22/2025 07:44:53 AM Interpretation:Normal Performing Lab: Notes/Report: THYROID STIMULATING HORMONE (TSH) UIU/ML 1.400 0.270-4.20 uIU/mL Lab specimens recei popeye at a [facility].?See result details for the performing location information. ESTRADIOL Reviewed date:04/22/2025 07:44:53 AM Interpretation:Normal Performing Lab: Notes/Report: Estradiol Reference Ranges: Adult Males: 7.6-42.6 pg/mL Adult Femles: Follicular phase 12.5-166.0 pg/mL Ovulation phase 85.8-498.0 pg/mL Luteal phase 43.8-211.0 pg/mL Postmenopausal <6.0-54.7 pg/mL : First Trimester 215.0- >4300.0 pg/mL Child (1-10 years): Male <6.0-20.0 pg/mL Female 6.0-27.0 pg/mL Results may be falsely increased if patient taking Biotin. ESTRADIOL LEVEL 52.0 Lab specimen s received at a [facility].?See result details for the performing location information. FOLLICLE STIMULATING HORMONE Reviewed date:04/22/2025 07:44:53 AM Interpretation:Normal Performing Lab: Notes/Report: FSH Reference Ranges: Adult Males: 1.5-12.4 mIU/mL Adult Females: Folicular Phase ?3.5-12.5 mIU/ml Ovulation Phase ?4.7-21.5 mIU/ml Lutal Phase ? ? ?1.7-7.7 mIU/ml Postmenopausal ? 25.8-134.8 mIU/ml FOLLICLE STIMULATING HORMONE 12.70 Lab specimens receiv ed at a [facility].?See result details for the performing location information. PROLACTIN Reviewed date:04/22/2025 07:44:53 AM Interpretation:Normal Performing Lab: Notes/Report: Results may be falsely decreased if patient taking Biotin. PROLACTIN 21.70 4.79-23.30 ng/mL Lab specime ns received at a [facility].?See result details for the performing location information. Reason For Referral No Information Medications Medication SIG (Take, Route, Frequency, Duration) Notes Start Date End Date Status BuSpar 30mg BID Active Auvelity 45-105mg 1tab BID Ac tive Nadolol Active traZODone HCl 50mg tab daily A ctive Jardiance Active Vitamin D 125mcg daily Active LORazepam 1 tab TID Active Omeprazole 40mg daily Active hydrOXYzine HCl 50mg TID Acti ve Loratadine 10mg Active Gabapentin 300mg caps 2capsTID Active Glycopyrrolate PF 2mg QID Ac tive Social History Sex Assigned At : Social [...] Problem Status W/U Status Risk Notes Problem Cervical high risk HPV (human papillomavirus) test positive (319713643) Cervical high risk HPV (human papillomavirus) test positive (R87.810) Active confirmed Problem Secondary oligomenorrhea (78505565) Secondary oligomenorrhea (N91.4) Active confirmed Vital Signs Blood pressure diastolic 82 mm Hg 04/21/2025 Height 64 in 04/21/2025 Blood pressure systolic 122 mm Hg 04/21/2025 Weight 115.4 lbs 04/21/2025 BMI 19.81 kg/m2 04/21/2025 Encounters Encounter Location Date Provider Diagnosis [facility] [address] [place] [address] 04/21/2025 Tesha Card Grain Grader exam without abnormal findings Z01.419 and Secondary oligomenorrhea N91.4 Assessments Encounter Date Diagnosis (ICD Code) Assessment Notes Treatment Notes Treatment Clinical Notes Section Notes 04/21/2025 Grain Grader exam without abnormal findings (ICD-10 - Z01.419) 04/21/2025 Secondary oligomenorrhea (ICD-10 - N91.4) Plan Of Treatment Next Appt Details Provider Name:Aramis Felix, 04/26/2026 02:15:00 PM, [address], [place], [address], Insurance Providers Payer Name Payer Address Payer Phone Subscriber Number Group Number Insured Name Patient Relationship to Insured Coverage Start Date Coverage End Date Jaclyn [facility] [address] [place] [address] [phone] [id number] Alysa Mancini Self - patient is the insured Medical (General) History Medical History History ICD Code HPV / ASCUS Acid Reflux Anxiety Bowel Problems Depression Hypertension Stomach Problems Urinary Tract Infections IUFD Takotsubo cardiomyopathy Gestational diabetes Alcoholism Obesity with massive weight loss Surgical History Surgery Date(Month/Year) LEEP 2016 Multiple Lithotripsy T&A [place] Teeth Extraction Lt Breast Lumpectomy umbilical hernia repair oral surgery teeth revision pacemaker and defibrillator placed Midurethral sling Hospitalization History Reason Date(Month/Year) L&D - x3 T&A
--- OUTSIDE RECORDS SUMMARY | 2025-05-21 08:42 | XMS_ITS | Encounter Summary ---
Author Organization [facility] Address [address] [place] [address] Care Team Providers Care Water Purification Chemist Name Role Phone Sandro Sebastian MD Primary Care Provider [phone] Encounter Details Date Type Department Care Team (Late Contact Info) Description 03/30/2021 Lab Requisition [facility] [address] [place] [address] Brian Galvez MD [address] [place] [address] Encounter for general adult medical examination without [...] Medical Office Building Echo Lab [address], [address] [place] [address] documented as of this encounter Procedures Procedure Name Priority Date/Time Associated Diagnosis Comments AMPHETAMINES LCMSMS URINE Routine 03/29/2021 8:27 PM EDT Encounter for general adult medical examination without abnormal findings documented in this encounter Results * (ABNORMAL) Amphetamine Urine Confirm LCMSMS (03/29/2021 8:27 PM EDT) Amphetamine >1,000(H) <50 ng/mL 03/31/2021 10:31 AM EDT [facility] Methamphetamine <50 <50 ng/mL 10:31 AM EDT [facility] MDA <50 <50 ng/mL 03/31/2021 10:31 AM EDT [facility] MDMA <50 <50 ng/mL 03/31/2021 10:31 AM EDT [facility] Urine Urine specimen obtained by clean catch procedure / Unknown 03/29/2021 8:27 PM EDT 03/30/2021 1:07 AM EDT Narrative [facility]ALTHCARE LAB - 03/31/2021 10:31 AM EDT Drug analysis is confirmed by LC-MS/MS (LC Tandem Mass Spectrometry) on Urine specimens. This test was developed and its performance characteristics determined by [facility]. It has not been cleared or approved by the FDA. The laboratory is regulated under CLIA as qualified to perform high-complexity testing. This test is used for clinical purposes. Testing is performed at the [facility]. us Brian Galvez MD LAB URINE ORDERABLES Final R esult [facility] [address] [place] [address] documented in this encounter Visit Diagnoses Diagnosis Encounter for general adult medical examination without abnormal findings documented in this encounter Care Teams Water Purification Chemist Relationship Specialty Start Date End Date Sandro Sebastian MD [address] [place] [address] PCP - General 01/27/21 documented as of this encounter
--- OUTSIDE RECORDS SUMMARY | 2025-05-21 08:42 | XMS_ITS | Encounter Summary ---
Author Organization [facility] Address [address] [place] [address] Care Team Providers Care Powderer Name Role Phone Sandro Sebastian MD Primary Care Provider [phone] Encounter Details Date Type Department Care Team (Late Contact Info) Description 05/26/2024 Orders Only External Location [address] [place] [address] Brendon Cunningham MD [address] [address] [place] [address] Social History Tobacco Use Types Packs/Day Years [...] Medical Office Building Echo Lab [address] [place] [address] documented as of this encounter Procedures Procedure Name Priority Date/Time Associated Diagnosis Comments IR OUTSIDE IMAGES 05/26/2024 7:20 AM EDT documented in this encounter Results * IR OUTSIDE IMAGES (05/26/2024 7:20 AM EDT) Anatomical Region Laterality Modality X-Ray Angiograph y 05/26/2024 7:20 AM EDT Brendon Cunningham MD IMG IR PROCEDURES Final Result documented in this encounter Visit Diagnoses Not on filedocumented in this encounter Additional Health Concerns Assessment Noted Time PHQ-9 Depression Total Score: 24 023 12:42 PM EST documented as of this encounter Care Teams Powderer Relationship Specialty Start Date End Date Sandro Sebastian MD [address] [place] [address] PCP - General 01/27/21 documented as of this encounter
--- OUTSIDE RECORDS SUMMARY | 2025-05-21 08:42 | XMS_ITS | Encounter Summary ---
Author Organization [facility] Address [address] [place] [address] Care Team Providers Care Closed Circuit Screen Watcher Name Role Phone Sandro Sebastian MD Primary Care Provider [phone] Reason for Visit * Reason Onset Date Comments Venofer Therapy 11/12/2024 Encounter Details Date Type Department Care Team (Late st Contact Info) Description 11/12/2024 Telephone [facility] [address] [place] [address] [place] [address] Venofer Therapy Social History Tobacco Use Types Packs/Day Years Used Date Smoking Tobacco: Former Cigarettes Smokeless Tobacco: Never Alcohol Use Standard Drinks/Week Comments Never 0 (1 standard drink = 0.6 oz pure alcohol) Alcoholic Drinks/day: Minimum alcohol consumption PHQ-2 Answer Date Recorded Patient Health Questionnaire-2 Score 03/30/2025 PHQ-9 Answer Date Recorded Patient Health [...] 6 03/30/2025 5:44 PM EDT Betsy Ellsworth , RN * Calculated C-SSRS Risk Score (Lifetime/Recent) [...] hopeless Nearly every day 03/30/2025 5:44 PM VESTAT Betsy Ellsworth RN Trouble falling or staying asleep, or sleeping too much More than half the days 03/30/2025 5:44 PM VESTAT Betsy Ellsworth RN Feeling tired or having little energy Nearly every day 03/30/2025 5:44 PM EDT Betsy Ellsworth RN Poor appetite or overeating Nearly every day 03/30/2025 5:44 PM VESTAT Betsy Ellsworth RN Feeling bad about yourself - or that you are a failure or have let yourself or your family down Nearly every day 03/30/2025 5:44 PM VESTAT Betsy Ellsworth RN Trouble concentrating on things, such as reading the newspaper or watching television Nearly every day 03/30/2025 5:44 PM VESTAT Betsy Ellsworth RN Moving or speaking so slowly that other people could have noticed? Or the opposite - being so fidgety or restless that you have been moving around a lot more than usual. Several days 03/30/2025 5:44 PM VESTAT Betsy Ellsworth RN Thoughts that you would be better off or hurting yourself in some way More than half the days 03/30/2025 5:44 PM VESTAT Betsy Ellsworth RN Patient Health Questionnaire-9 Score [...] 03/31/2025 8:31 AM EDT Betsy Ellsworth RN 4. Active Suicidal Ideation with Some Intent to Act, Without Specific Plan (Past 1 Month) No 03/31/2025 8:31 AM EDT Betsy Ellsworth RN 5. Active Suicidal Ideation with Specific Plan and Intent (Past 1 Month) No 03/31/2025 8:31 AM EDT Betsy Ellswotrh RN 6. Suicidal Behavior (Lifetime) Yes 8:31 AM EDT Betsy Ellsworth RN 6. Suicidal Behavior (3 Months) No 8:31 AM EDT Betsy Ellsworth RN documented as of this encounter Miscellaneous Notes * Telephone Encounter - Mary Terrell CPhT - 04/29/2025 2:37 PM EDT After multiple verbal and written attempts to reach patient with no response, patient has been discharged from [facility] services and is not filling their medication or receiving other pharmacy servicesfrom [facility] at this time. Per [facility], patient's venofer was denied. Patient is overdue for necessary labs for [employer] to resubmit authorization requests. We will remove patient from our call list at this time. Mary Campos * Telephone Encounter - Kiki Sauceda, PharmD - 02/10/2025 1:58 PM EDT Patient has been approved to receive infusion treatment at outside facility. [facility] will follow up with facility to make sure patient has been scheduled and received first dose. Specialty Medication: Venofer Filling Pharmacy/SOC: [facility] * Telephone Encounter - Nataliia Monae RN - 11/12/2024 11:36 AM EST [facility] Specialty Education Summary Patient was assessed via phone for initiation of Venofer for diagnosis ANGELITA. Plan for administrationof therapy in infusion center and planned date of initiation: jany. Anticipated filling pharmacy [facility]. Education and Counseling Medication specific education provided: Venofer for ANGELITA Patient specific/therapeutic goal(s) of therapy: To improve s/s such as fatigue due to anemia. Summary/Plan Pharmacist/RN reviewed patient chart for allergies and current medication list, comorbidities, relevant medical history, potential barriers to care and mitigation of those barriers, if applicable. Therapy is clinically appropriate given patient's condition. Any available financial resources were discussed with patient and utilized if appropriate. Patient has no other identified problems or needs at this time as it pertains to this specialty medication. Nataliia Monae RN 11/12/24 11:38 AM documented in this encounter Plan of Treatment Upcoming Encounters Date Type Department Care Team (Late st Contact Info) Description 06/03/2025 3:30 PM EDT Appointment Medical Office Building Cardiac Diagnostic Testing Medical Office Building Echo Lab [address] [place] [address] documented as of this encounter Visit Diagnoses Not on filedocumented in this encounter Additional Health Concerns Assessment Noted Time PHQ-9 Depression Total Score: 3 11/03/19 25 12:57 PM EST A fall risk assessment has been complete d for the patient 11/03/2024 12:57 PM EST A Body Mass Index follow-up plan has been documented for the patient 11/07/2024 2:15 PM EST documented as of this encounter Care Teams Closed Circuit Screen Watcher Relationship Specialty Start Date End Date Sandro Sebastian MD [address] [place] [address] PCP - General 01/27/21 documented as of this encounter
--- OUTSIDE RECORDS SUMMARY | 2025-05-21 08:42 | XMS_ITS | Encounter Summary ---
Author Organization [employer] ([place], [place], [place], [place]) Address [address] [place] [address] Care Team Providers Care Web Content Executive Name Role Phone Sandro Sebastian Primary Care Provider Unavailabl e Reason for Referral * Diagnostic X-Ray (Routine) - Closed Specialty Diagnoses / Procedures Referred By Contac t Referred To Contact Diagnoses Constipation, unspecified constipation type Procedures X-ray abdomen KUB 1 view Prema Medina PA-C Phone: tel: fax: Referral ID Status Reason Start Date Expiration Date Visits Re quested Visits Authorized [id number] Closed 12/07/2022 06/05/2023 1 1 Encounter Details Date Type Department Care Team (Late st Contact Info) Description 12/05/2022 Outside Orders [facility] Admitting [address] [place] [address] Prema Medina PA-C [address] [place] [address] Constipation, unspecified constipation type (Primary Dx) Social History Tobacco Use Types Packs/Day Years Used Date Smoking Tobacco: Never Smokeless Tobacco: Never Comments Unknown Sex and Gender Information Value Date Recorded Sex Assigned at Not on file Legal Sex Female 6:06 PM CDT Gender Identity Not on file Sexual Orientation Not on file COVID-19 Exposure Response Date Recorded In the last 10 days, have yo u been in contact with someone who was confirmed or suspected to have Coronavirus/COVID-19? No / Unsure 12/07/2022 2:40 PM EDT documented as of this encounter Plan of Treatment Not on file documented as of this encounter Results * X-ray abdomen KUB 1 view (12/07/2022 2:58 PM EDT) Anatomical Region Laterality Modality Abdomen X-Ray 12/07/2022 3:54 PM EDT Impressions 12/07/2022 4:10 PM EDT Sitzmarks study as above. Images reviewed, interpreted, and dictated by Dr. Blaze Rajput. Transcribed by Chato Briggs PA-C Narrative 12/07/2022 4:10 PM EDT SITZ MARKER EXAM HISTORY: Constipation. FINDINGS: Day 5 Sitz marker exam. COMPARISON: December 05, 2022 There are total of 24 Sitzmarks identified that have progressed compared to prior predominantly residing within the sigmoid colon and rectum. Procedure Note Blaze Rajput MD - 12/07/2022 SITZ MARKER EXAM HISTORY: Constipation. FINDINGS: Day 5 Sitz marker exam. COMPARISON: December 05, 2022 There are total of 24 Sitzmarks identified that have progressed compared to prior predominantly residing within the sigmoid colon and rectum. IMPRESSION: Sitzmarks study as above. Images reviewed, interpreted, and dictated by Dr. Blaze Rajput. Transcribed by Chato Briggs PA-C Prema Medina PA-C IMG DIAGNOSTIC IMAGING ORDERA BLES Final Result documented in this encounter Visit Diagnoses Diagnosis Constipation, unspecified constipation type- Primary Constipation, unspecified constipation type documented in this encounter Care Teams Web Content Executive Relationship Specialty Start Date End Date Sandro Sebastian [address] [place] [address] PCP - General 11/01/22 documented as of this encounter
--- OUTSIDE RECORDS SUMMARY | 2025-05-21 08:42 | XMS_ITS | Encounter Summary ---
Author Organization [employer] ([place], [place], [place], [place]) Address [address] [place] [address] Care Team Providers Care Truckload Checker Name Role Phone Sandro Sebastian Primary Care Provider Unavailabl e Reason for Referral * Diagnostic X-Ray (Routine) - Closed Specialty Diagnoses / Procedures Referred By Contac t Referred To Contact Diagnoses Constipation, unspecified constipation type Procedures XR KUB PORTABLE Prema Medina PA-C Phone: tel: fax: Referral ID Status Reason Start Date Expiration Date Visits Re quested Visits Authorized [id number] Closed 12/03/2022 06/01/2023 1 1 Encounter Details Date Type Department Care Team (Late st Contact Info) Description 12/03/2022 Outside Orders [facility] Admitting [address] [place] [address] Prema Medina PA-C [address] [facility] [address] [place] [address] Constipation, unspecified constipation type (Primary Dx) Social [...] suspected to have Coronavirus/COVID-19? No / Unsure 12/05/2022 4:18 PM EDT documented as of this encounter Plan of Treatment Not on file documented as of this encounter Results * XR KUB PORTABLE (12/03/2022 1:02 PM EDT) Anatomical Region Laterality Modality Abdomen X-Ray 12/03/2022 1:37 PM EDT Impressions 12/03/2022 1:52 PM EDT 24 Sitz markers identified with most in the ascending colon. Images reviewed, interpreted, and dictated by Dr. Blaze Rajput. Transcribed by Loren Melgar PA-C. Narrative 12/03/2022 1:52 PM EDT SINGLE VIEW ABDOMEN HISTORY: Constipation, day one Sitz markers study. ABDOMEN: Single view of the abdomen demonstrates a nonspecific bowel gas pattern. There are 24 Sitz markers identified. Most are in the ascending colon. Procedure Note Blaze Rajput MD - 12/03/2022 SINGLE VIEW ABDOMEN HISTORY: Constipation, day one Sitz markers study. ABDOMEN: Single view of the abdomen demonstrates a nonspecific bowel gas pattern. There are 24 Sitz markers identified. Most are in the ascending colon. IMPRESSION: 24 Sitz markers identified with most in the ascending colon. Images reviewed, interpreted, and dictated by Dr. Blaze Rajput. Transcribed by Loren Melgar PA-C. Prema Medina PA-C IMG DIAGNOSTIC IMAGING ORDERA BLES Final Result documented in this encounter Visit Diagnoses Diagnosis Constipation, unspecified constipation type- Primary Constipation, unspecified constipation type documented in this encounter Care Teams Truckload Checker Relationship Specialty Start Date End Date Sandro Sebastian [address] [place] [address] PCP - General 11/01/22 documented as of this encounter
--- OUTSIDE RECORDS SUMMARY | 2025-05-21 08:42 | XMS_ITS | Encounter Summary ---
Author Organization [facility] Address [address] [place] [address] Care Team Providers Care Director Of Academic Name Role Phone Sandro Sebastian MD Primary Care Provider [phone] Encounter Details Date Type Department Care Team ([facility] Contact Info) Description 04/06/2021 Lab Requisition [facility] [address] [place] [address] Braxton Ballesteros MD [address] [facility] [address] [place], [place] [id number] Encounter for general adult medical examination without [...] Upcoming Encounters Date Type Department Care Team ([facility] Contact Info) Description 06/03/2025 3:30 PM EDT Appointment Medical Office Building Cardiac Diagnostic Testing Medical Office Building Echo Lab [address], [address] [place] [address] documented as of this encounter Visit Diagnoses Diagnosis Encounter for general adult medical examination without abnormal findings documented in this encounter Care Teams Director Of Academic Relationship Specialty Start Date End Date Sandro Sebastain MD [facility] [address] PCP - General 01/27/21 documented as of this encounter
--- OUTSIDE RECORDS SUMMARY | 2025-05-21 08:43 | XMS_ITS | Encounter Summary ---
Author Organization [id number] ([place], [place], [place], [place]) Address [address] [place] [address] Care Team Providers Care Door Operator Name Role Phone Sandro Sebastian Primary Care Provider Unavailabl e Encounter Details Date Type Department Care Team (Late st Contact Info) Description 03/29/2021 Transcribed Document [facility] [place] [facility] [place] [address] ProviderMahi MD [address], [place] [id number] Social History Tobacco Use Types Packs/Day Years Used Date Smoking Tobacco: Never Assessed Comments Unknown Sex and Gender Information Value Date Recorded Sex Assigned at Not on file Legal Sex Female 6:06 PM CDT Gender Identity Not on file Sexual Orientation Not on file documented as of this encounter Miscellaneous Notes * Cerner Conversion Note - Mahi Beard MD - 03/29/2021 10:10 [place] [address] ALYSA MANCINI :1985 Visit Time:03/29/2021 Your Visit Summary Your Care Team Admitting Physician - TIMOTHY DE SOUZA MD-OBG Attending Physician - TIMOTHY DE SOUZA MD-OBG Primary Care Physician - ELIJAH MORRIS DR Referring Physician - TIMOTHY DE SOUZA MD-OBG Your Diagnosis 34 weeks gestation of Cervical shortening in in third trimester Feeling pelvic pressure during in third trimester, antepartum, Vaginal discharge during in third trimester Gestational diabetes mellitus (GDM) during controlled on oral hypoglycemic therapy Hx of preeclampsia, prior , currently uterine contractions in third trimester, antepartum What to do next Instructions From Your Care Team Discharge Activity: Discharge Activity: Rest and relax today Diet: Discharge Diet: Drink 8-10 glasses water/day Bring steroid with you to your appointment on 03/30/21 Follow-Up Appointments Follow Up with NANO PAN When Within in AM Comments Call the office for follow up appointment tomorrow morning. Call Dr De Souza or Nano Pan for regular contractions 6/hour, leaking water, bleeding, abdominal pain, uterine pain, fever or decreased movement. Where: [address] [phone] Business (1) Medications What How Much When Instructions Next Dose multivitamin, ( AD oral tablet) Oral Every Day omeprazole 40 Milligram(s) Oral Every Day venlafaxine (Effexor XR 75 mg oral capsule, extended release) 3 Capsule(s) Oral Every Day Take your medications faithfully. Do NOT skip medication. Do NOT stop taking medications without the direction of a physician. Carry a list of your medications with you at all times, and take this medication list with you to your first follow up visit. Report any side effects. Avoid herbal remedies unless discussed with your physician. As part of your treatment plan, your physician may have prescribed a limited course of a controlled substance. This medication may be given to help people with moderate or severe pain or for other medical conditions, but there are risks involved with treatment. Common side effects may include nausea, constipation, drowsiness, sweating, itching, dry mouth, and rash. More serious side effects may include cognitive and motor impairment, like problems with thinking, concentrating, alertness, and movement (e.g. slowed reflexes), and driving and operating heavy machinery can be dangerous. It is important for you to talk to your physician if you have these side effects or questions. These controlled substances can produce physical dependence and be habit-forming if taken for an extended period of time, which means that the body has gotten used to them and may experience withdrawal symptoms if they are abruptly stopped. Withdrawal symptoms can include runny nose, sweating, goose bumps, diarrhea, abdominal cramping, rapid heartbeat, difficulty sleeping, and nervousness. Please dispose of unused and medications per your retail pharmacy guidance. Allergies penicillin (Rash) Immunizations This Visit No Immunizations Found Education Materials Third Trimester of The third trimester is from week 28 through week 40 (months 7 through 9). This trimester is when your unborn baby (fetus) is growing very fast. At the end of the ninth month, the unborn baby is about 20 inches in length. It weighs about 6???10 pounds. Follow these instructions at home: Medicines ??? Take jqvv-pjg-gzfobek and prescription medicines only as told by your doctor. Some medicines are safe and some medicines are not safe during . ??? Take a vitamin that contains at least 600 micrograms (mcg) of folic acid. ??? If you have trouble pooping (constipation), take medicine that will make your stool soft (stool softener) if your doctor approves. Eating and drinking ??? Eat regular, healthy meals. ??? Avoid raw meat and uncooked cheese. ??? If you get low calcium from the food you eat, talk to your doctor about taking a daily calcium supplement. ??? Eat four or five small meals rather than three large meals a day. ??? Avoid foods that are high in fat and sugars, such as fried and sweet foods. ??? To prevent constipation: ? Eat foods that are high in fiber, like fresh fruits and vegetables, whole grains, and beans. ? Drink enough fluids to keep your pee (urine) clear or pale yellow. Activity ??? Exercise only as told by your doctor. Stop exercising if you start to have cramps. ??? Avoid heavy lifting, wear low heels, and sit up straight. ??? Do not exercise if it is too hot, too humid, or if you are in a place of great height (high altitude). ??? You may continue to have sex unless your doctor tells you not to. Relieving pain and discomfort ??? Wear a good support bra if your breasts are tender. ??? Take frequent breaks and rest with your legs raised if you have leg cramps or low back pain. ??? Take warm water baths (sitz baths) to soothe pain or discomfort caused by hemorrhoids. Use hemorrhoid cream if your doctor approves. ??? If you develop puffy, bulging veins (varicose veins) in your legs: ? Wear support hose or compression stockings as told by your doctor. ? Raise (elevate) your feet for 15 minutes, 3???4 times a day. ? Limit salt in your food. Safety ??? Wear your seat belt when driving. ??? Make a list of emergency phone numbers, including numbers for family, friends, the hospital, and police and fire departments. Preparing for your baby's arrival To prepare for the arrival of your baby: ??? Take classes. ??? Practice driving to the hospital. ??? Visit the hospital and tour the maternity area. ??? Talk to your work about taking leave once the baby comes. ??? Pack your hospital bag. ??? Prepare the baby's room. ??? Go to your doctor visits. ??? Buy a rear-facing car seat. Learn how to install it in your car. General instructions ??? Do not use hot tubs, steam rooms, or saunas. ??? Do not use any products that contain nicotine or tobacco, such as cigarettes and e-cigarettes. If you need help quitting, ask your doctor. ??? Do not drink alcohol. ??? Do not douche or use tampons or scented sanitary pads. ??? Do not cross your legs for long periods of time. ??? Do not travel for long distances unless you must. Only do so if your doctor says it is okay. ??? Visit your dentist if you have not gone during your . Use a soft toothbrush to brush your teeth. Be gentle when you floss. ??? Avoid cat litter boxes and soil used by cats. These carry germs that can cause defects in the baby and can cause a loss of your baby (miscarriage) or stillbirth. ??? Keep all your visits as told by your doctor. This is important. Contact a doctor if: ??? You are not sure if you are in labor or if your water has broken. ??? You are dizzy. ??? You have mild cramps or pressure in your lower belly. ??? You have a nagging pain in your belly area. ??? You continue to feel sick to your stomach, you throw up, or you have watery poop. ??? You have bad smelling fluid coming from your vagina. ??? You have pain when you pee. Get help right away if: ??? You have a fever. ??? You are leaking fluid from your vagina. ??? You are spotting or bleeding from your vagina. ??? You have severe belly cramps or pain. ??? You lose or gain weight quickly. ??? You have trouble catching your breath and have chest pain. ??? You notice sudden or extreme puffiness (swelling) of your face, hands, ankles, feet, or legs. ??? You have not felt the baby move in over an hour. ??? You have severe headaches that do not go away with medicine. ??? You have trouble seeing. ??? You are leaking, or you are having a gush of fluid, from your vagina before you are 37 weeks. ??? You have regular belly spasms (contractions) before you are 37 weeks. Summary ??? The third trimester is from week 28 through week 40 (months 7 through 9). This time is when your unborn baby is growing very fast. ??? Follow your doctor's advice about medicine, food, and activity. ??? Get ready for the arrival of your baby by taking classes, getting all the baby items ready, preparing the baby's room, and visiting your doctor to be checked. ??? Get help right away if you are bleeding from your vagina, or you have chest pain and trouble catching your breath, or if you have not felt your baby move in over an hour. This information is not intended to replace advice given to you by your health care provider. Make sure you discuss any questions you have with your health care provider. Document Revised: 12/24/2019 Document Reviewed: 10/08/2017 [employer] Patient Education ?? 2020 [employer] Labor and Information The normal length of a is 39???41 weeks. labor is when labor starts before 37 completed weeks of . What are the risk factors for labor? labor is more likely to occur in women who: ??? Have certain infections during such as a bladder infection, sexually transmitted infection, or infection inside the uterus (chorioamnionitis). ??? Have a eaihwbr-hyfs-vyiczk cervix. ??? Have gone into labor before. ??? Have had surgery on their cervix. ??? Are younger than age 17 or older than age 35. ??? Are . ??? Are with twins or multiple babies (multiple gestation). ??? Take street drugs or smoke while . ??? Do not gain enough weight while . ??? Became shortly after having been . What are the symptoms of labor? Symptoms of labor include: ??? Cramps similar to those that can happen during a menstrual period. The cramps may happen with diarrhea. ??? Pain in the abdomen or lower back. ??? Regular uterine contractions that may feel like tightening of the abdomen. ??? A feeling of increased pressure in the pelvis. ??? Increased watery or bloody mucus discharge from the vagina. ??? Water breaking (ruptured amniotic sac). Why is it important to recognize signs of labor? It is important to recognize signs of labor because babies who are born prematurely may not be fully developed. This can put them at an increased risk for: ??? Long-term (chronic) heart and lung problems. ??? Difficulty immediately after with regulating body systems, including blood sugar, body temperature, heart rate, and breathing rate. ??? Bleeding in the brain. ??? Cerebral palsy. ??? Learning difficulties. ??? . These risks are highest for babies who are born before 34 weeks of . How is labor treated? Treatment depends on the length of your , your condition, and the health of your baby. It may involve: ??? Having a stitch (suture) placed in your cervix to prevent your cervix from opening too early (cerclage). ??? Taking or being given medicines, such as: ? Hormone medicines. These may be given early in to help support the . ? Medicine to stop contractions. ? Medicines to help mature the baby???s lungs. These may be prescribed if the risk of delivery is high. ? Medicines to prevent your baby from developing cerebral palsy. If the labor happens before 34 weeks of , you may need to stay in the hospital. What should I do if I think I am in labor? If you think that you are going into labor, call your health care provider right away. How can I prevent labor in future pregnancies? To increase your chance of having a full-term : ??? Do not use any tobacco products, such as cigarettes, chewing tobacco, and e-cigarettes. If you need help quitting, ask your health care provider. ??? Do not use street drugs or medicines that have not been prescribed to you during your . ??? Talk with your health care provider before taking any herbal supplements, even if you have been taking them regularly. ??? Make sure you gain a healthy amount of weight during your . ??? Watch for infection. If you think that you might have an infection, get it checked right away. ??? Make sure to tell your health care provider if you have gone into labor before. This information is not intended to replace advice given to you by your health care provider. Make sure you discuss any questions you have with your health care provider. Document Revised: 12/25/2019 Document Reviewed: 01/23/2017 [employer] Patient Education ?? 2020 [employer]. Emergency Awareness and Preventative Care STROKE is an EMERGENCY Every Minute Counts Act FAST and Check for these signs: FACE Does the face look uneven? ARM Does one arm drift down? SPEECH Does their speech sound strange? TIME Call at any sign of stroke Stroke Risk Factors Atrial Fibrillation (irregular heartbeat) Diabetes Family history of stroke Heart Disease Heavy alcohol use High Blood Pressure High Cholesterol Physical inactivity and obesity Smoking Cigarette Smoking The facts are clear, cigarette smoking will shorten your life. Smoking can cause many illnesses along the way. As a healthcare provider, we recommend that you stop smoking. Assistance with quitting is available by contacting 6-493-DAVL-NOW. This is a free resource providing counseling, support, and referral. Or you may contact your personal physician. National Suicide Prevention Lifeline: The National Suicide Prevention Lifeline is a national network of local crisis centers that provides free and confidential emotional support to people in suicidal crisis or emotional distress 24 hours a day, 7 days a week. Don't Wait! Stop a Heart Attack Before it Starts What is a heart attack? A heart attack is damage or to a part of the heart from severely decreased or lack of blood flow to the heart. Over time, arteries can become narrow from the buildup of fat and cholesterol, which is called plaque. The plaque can rupture causing a blood clot to form. When the blood clot forms, the artery can become severely narrowed or completely blocked, causing a heart attack. Heart attack is the leading cause of in the [place]. 85% of muscle damage occurs within the first 2 hours. Delay in the recognition of heart attack symptoms increases the chances of . Know the early symptoms of a heart attack: Nausea Feeling of fullness in chest Jaw Pain Pain that travels down one or both arms Fatigue/being tired Anxiety Back Pain Chest pressure, squeezing, or discomfort Shortness of breath Sweating, or a cold sweat Feeling of impending doom There are unusual signs of a heart attack, too! Women, the elderly, and diabetics may present with atypical symptoms: Fainting/dizziness Weakness Confusion Risk Factors for a Heart Attack Some heart disease risk factors, such as age and family history, cannot be changed. Others, like smoking and lack of exercise, can be changed. Smoking High Cholesterol High Blood Pressure Family History Obesity Age Gender (Males are at higher risk) Lack of Exercise Diabetes Diet Stress Excessive Alcohol Intake If you or someone you know is experiencing the signs and symptoms of a heart attack, DON???T DELAY. Call immediately and seek help. If someone collapses, perform CPR! Do not attempt to drive if you are having symptoms of heart attack. Hands-Only CPR Why Hands-Only CPR? Hands-Only CPR has been shown to be as effective as conventional CPR for cardiac arrests that occur outside of a hospital. Survival depends on immediately receiving CPR from someone nearby. How do you perform Hands-Only CPR? There are two easy steps: Call if you see a teen or adult collapse Push hard and fast in the center of the chest at a beat of 100 beats per minute. Save a life! 4 WAYS TO GET AHEAD OF SEPSIS SEPSIS is a MEDICAL EMERGENCY. Time matters! Infections put you and your family at risk for a life-threatening condition called sepsis. Sepsis is the body's extreme response to an infection. It is life-threatening, and without timely treatment, sepsis can rapidly lead to tissue damage, organ failure, and . Sepsis happens when an infection you already have-in your skin, lungs, urinary tract or somewhere else-triggers a chain reaction throughout your body. 1 PREVENT INFECTIONS Take good care of chronic conditions. Talk to your doctor about getting the recommended vaccines. 2 PRACTICE GOOD HYGIENE Wash your hands frequently. Keep cuts or open sores clean and covered until they are healed. 3 KNOW THE SYMPTOMS Confusion or disorientation Shortness of breath High heart rate Fever, shivering, or feeling very cold Extreme pain or discomfort Clammy or sweaty skin 4 ACT FAST Get medical care IMMEDIATELY if you suspect sepsis or if you have an infection that is not getting better or is getting worse. To learn more about sepsis and how to prevent infections, visit www.cdc.gov/sepsis. Test Results Laboratory or Other Results This Visit (last charted value for your 03/29/2021 visit) Urinalysis 03/29/2021 9:05 PM Ur RBC: None Seen Urine Nitrite: Negative Urine Leukocyte Esterase: Negative Ur Epithelial Cells: 2-5 /HPF Urine Appearance: Clear Urine Glucose Dipstick: Negative Urine Blood Dipstick: Negative Urine Urobilinogen Dipstick: 1.0 EU/dL -- Normal range between ( 0.2 and 1.0 ) Urine Protein Dipstick: Negative Ur Bacteria: Trace Urine Color: Yellow Ur WBC: 2-5 /HPF Urine Ketones Dipstick: Negative Urine pH Dipstick: 6.0 -- Normal range between ( 6.0 and 8.0 ) Urine Bilirubin Dipstick: Negative mg/dL Urine Specific D Hanis: 1.019 -- Normal range between ( 1.005 and 1.030 ) Urine Type.: U CleanCatch Urine Culture if Indicated: Culture Ordered Toxicology 03/29/2021 9:05 PM UDS Amp: Conf to Follow UDS Penny: Negative UDS Benzo: Negative UDS Guerita: Negative UDS Meth: Negative UDS Opi: Negative UDS Oxy: Negative UDS PCP: Negative UDS TCA: Negative UDS THC: Negative Buprenorphine Screen, Urine: Negative Heroin Metab (6AM) by LC-MS/MS, Urine: Negative SpGravity, Urine: 1.021 Propoxyphene, Urine: Negative UDS pH: 6.0 UDS Creatinine, Toxicology: 114.1 mg/dL Maternal Screening 03/29/2021 9:05 PM Amniotic Fluid ROM: Negative Patient Name:TIKAXAVIERALYSA JOYCE SHRUTHI I have received and understand this information and was given the opportunity to ask questions. Patient/Sports Instructor Name: Patient/Sports Instructor Signature: Relationship to Patient: Clinician/Hospital Sports Instructor Signature: Date: documented in this encounter Plan of Treatment Not on file documented as of this encounter Visit Diagnoses Not on filedocumented in this encounter Care Teams Door Operator Relationship Specialty Start Date End Date Sandro Sebastian [address] [address] PCP - General 11/01/22 documented as of this encounter
--- OUTSIDE RECORDS SUMMARY | 2025-05-21 08:43 | XMS_ITS | Encounter Summary ---
Author Organization [employer] ([place], [place], [place], [place]) Address [address] [place] [address] Care Team Providers Care Home Improvement Contractor Name Role Phone Sandro Sebastian Primary Care Provider Unavailabl e Encounter Details Date Type Department Care Team (Late st Contact Info) Description 03/29/[address] [facility] [place] [address] [place] [address] ProviderMahi MD [address] [place], [place] [id number] Social History Tobacco Use Types Packs/Day Years Used Date Smoking Tobacco: Never Assessed Comments Unknown Sex and Gender Information Value Date Recorded Sex Assigned at Not on file Legal Sex Female 6:06 PM CDT Gender Identity Not on file Sexual Orientation Not on file documented as of this encounter Miscellaneous Notes * [employer] Conversion Note - Mahi ProviderMD - 03/29/2021 10:10 PM CDT Patient Education Materials Follows: documented in this encounter Plan of Treatment Not on file documented as of this encounter Visit Diagnoses Not on filedocumented in this encounter Care Teams Home Improvement Contractor Relationship Specialty Start Date End Date Sandro Sebastian [address] [place] [address] PCP - General 11/01/22 documented as of this encounter
--- OUTSIDE RECORDS SUMMARY | 2025-05-21 08:43 | XMS_ITS | Encounter Summary ---
Author Organization [employer] ([place], [place], [place], [place]) Address [address] [place] [address] Care Team Providers Care Cyber Security Name Role Phone Sandro Sebastian Primary Care Provider Unavailabl e Encounter Details Date Type Department Care Team (Late st Contact Info) Description 03/29/2021 Transcribed Document [facility] [place] [address] [place] [address] ProviderMahi MD [address] [place] [address] Social History Tobacco Use Types Packs/Day Years Used Date Smoking Tobacco: Never Assessed Comments Unknown Sex and Gender Information Value Date Recorded Sex Assigned at Not on file Legal Sex Female 6:06 PM CDT Gender Identity Not on file Sexual Orientation Not on file documented as of this encounter Miscellaneous Notes * Cerner Conversion Note - Mahi Beard MD - 03/29/2021 10:07 PM CDT Nursing Discharge Summary Entered On: 03/29/2021 22:08 EDT Performed On: 03/29/2021 22:07 EDT by Tesha Singletary RN Discharge Documentation Discharge Date/Time : 03/29/2021 22:07 EDT Patient Disposition, General : Discharge Discharge To : Home with ambulatory/outpatient follow-up Mode Of Departure, General Discharge : Ambulatory Accompanied By, Discharge : Spouse IV Discontinued : Not applicable Personal Belongings With Patient : No personal belongings to return Pt's Own Supply of Medications Returned : No patient supply of medications to return Prescriptions Given to Patient : No Medications Given to Patient : Yes Discharge Instructions Reviewed With, Opportunity For Questions Given : Patient Patient Education Completed : Yes Number of Medications Given : 1 Teaching Method : Explanation, Printed materials Teaching Evaluation : Verbalizes understanding Tesha Singletary, RN - 03/29/2021 22:07 EDT documented in this encounter Plan of Treatment Not on file documented as of this encounter Visit Diagnoses Not on filedocumented in this encounter Care Teams Cyber Security Relationship Specialty Start Date End Date Sandro Sebastian [address] [place] [address] PCP - General 11/01/22 documented as of this encounter
== END 2025-05-19 23:59 ==
LOC: LAB.DROPOF 05-21 08:28
PROVIDERS: PCP Family Medicine; Visit Provider Family Medicine
DX: N39.0 Urinary tract infection, site not specified (principal)
CPT/HCPCS: 87086; 87088; 87186

== ENCOUNTER 2025-07-09 19:00 | Outpatient (CLI) | payer BC, SELFPAY ==
[2025-07-09 20:26] LABS: Hematocrit 41.8 % (37.0-47.0); Hemoglobin 13.8 g/dL (12.2-16.2); Immature Granulocytes % 0.3 %; Mean Corpuscular HGB Conc 33.0 g/dL (31.8-35.4); Mean Corpuscular Hemoglobin 27.7 pg (27.0-31.2); Mean Corpuscular Volume 83.9 fl (81-99); Nucleated Red Blood Cells % 0.3 %; Platelet Count 255 K/mm3 (142-424); Red Blood Count 4.98 M/mm3 (4.20-5.40); Red Cell Distribution Width-SD 39.4 fL; White Blood Count 7.9 K/mm3 (4.8-10.8)
[2025-07-09 20:49] LABS: Hemoglobin A1C 4.8 % (4.0-6.0)
[2025-07-09 21:40] LABS: Alanine Aminotransferase 24 U/L (12-78); Albumin Level 3.8 g/dl (3.5-5.0); Alkaline Phosphatase 75 U/L (38-126); Aspartate Amino Transferase 29 U/L (14-36); Bilirubin,Direct 0.3 mg/dl (0.0-0.4); Bilirubin,Indirect 0.2 mg/dL (0.0-0.9); Bilirubin,Total 0.5 mg/dl (0.2-1.3); Bilirubin,Unconjugated 0.2 mg/dL (0.0-1.1); Cholesterol 170 mg/dl (140-200); Total Protein,Serum 6.8 g/dl (6.3-8.2); Triglycerides 100 mg/dl (30-150)
[2025-07-09 21:59] LABS: 25-OH Vitamin D, Total 33.4 ng/mL (30-100)
[2025-07-09 22:11] LABS: Thyroid Stimulating Hormone 1.17 uIU/mL (0.465-4.68)
[2025-07-09 22:30] LABS: Vitamin B12 276 pg/mL (239-931)
[2025-07-09 22:46] LABS: HDL Cholesterol 44 mg/dl (40-60)
[2025-07-11 08:38] LABS: FSH 10.5 mIU/mL (.); LH 5.1 mIU/mL (.)
== END 2025-07-09 23:59 | disposition home or self-care (01) ==
LOC: LAB.DROPOF 19:03
DX: N91.1 Secondary amenorrhea (principal)
CPT/HCPCS: 80061; 80076; 82166; 82306; 82607; 82627; 82670; 83001; 83002; 83036; 83498; 84144; 84146; 84402; 84403; 84443; 84702; 85025

== ENCOUNTER 2025-08-10 15:07 | Emergency (ER) | payer BC, SELFPAY ==
--- OUTSIDE RECORDS SUMMARY | 2025-01-06 08:00 | XMS_ITS ---
Author Organization [facility] Address [address] [facility] [address] [place] [address] Care Team Providers Care Pet Food Deboner Name Role Phone Chiqui Gibson Unavailable [phone] Marisela Avery Unavailable [phone] REASON FOR VISIT Annual Social History Sex Assigned At : Social History Observation Description Sex Assigned At Female Encounters Encounter Location Date Provider Diagnosis [facility] [address] [facility] [address] [place] [address] 01/06/2025 Marisela Avery Plan Of Treatment Next Appt Details Provider Name:Aramis Felix, 04/26/2026 02:15:00 PM, [address] [facility], [facility], [address], [place], [address], Progress Notes * Alysa MANCINI MDOB:02/1986 (39 yo F)Acc No.[id number]:01/06/2025 Progress Note Patient: Angeli venita Alysa Busch Provider: Krys Avery NP :1985 A ge:39 Y S ex:Female Date:01/06/2025 Address:[address] [place], [place] [id number] Subjective: * Chief Complaints: * A nnual * Electronic signature of Jasper Avery NP on 08/10/2025 at 03:27 PM EST Sign off status: Pending Visit Status: R /S (Rescheduled) * Provider: Krys Avery NP Date: 01/06/2025 Generated for Lluvia lewis/Rodolfo/Cortney on: 1 10/10/2024 03:27 PM EST
--- OUTSIDE RECORDS SUMMARY | 2025-01-08 05:15 | XMS_ITS ---
Author Organization [facility] Address [address] [facility] [address] [place] [address] Care Team Providers Care Barratte Operator Name Role Phone Chiqui Gibson Unavailable [phone] Maida Reno Unavailable [phone] REASON FOR VISIT Annual Social History Sex Assigned At : Social History Observation Description Sex Assigned At Female Encounters Encounter Location Date Provider Diagnosis [facility] [address] [place] [address] 01/08/2025 Maida Reno Plan Of Treatment Next Appt Details Provider Name:Aramis Felix, 04/26/2026 02:15:00 PM, [address] [facility] [address], [place], [address], Progress Notes * Alysa MANCINI MDOB:02/1986 (39 yo F)Acc No.[id number]:01/08/2025 Progress Note Patient: Alysa Romero Provider: Linda Reno APRN :1985 A ge:39 Y S ex:Female Date:01/08/2025 Address:[address] [place], [place] [phone] Subjective: * Chief Complaints: * A nnual * Electronic signature of Riya Reno NP on 08/10/2025 at 03:27 PM EST Sign off status: Pending Visit Status: N /S (No-Show) * Provider: Linda Reno APRN Date: 0 01/08/2025 Generated for Lluvia lewis/Rodolfo/Cortney on: 1 10/10/2024 03:27 PM EST
--- OUTSIDE RECORDS SUMMARY | 2025-01-13 05:00 | XMS_ITS ---
Author Organization [facility] Address [address] [facility] [address] [place] [address] Care Team Providers Care Brake Repair Mechanic Name Role Phone Chiqui Gibson Unavailable [phone] Allergies Allergen (clinical drug ingredient) Drug/Non Drug Allergy documented on EMR Reaction Allergy Type Onset Date Status PENICILLIN V POTASSI UM (PENICILLIN V POTASSIUM TAB rash Drug Allergy 06/06/2011 Active REASON FOR VISIT Nexplanon Insertion Medications Medication SIG (Take, Route, Frequency, Duration) Notes Start Date End Date Status LORazepam 1 tab TID Active hydrOXYzine HCl 50mg TID Acti ve Loratadine 10mg Active Gabapentin 300mg caps 2capsTID Active Glycopyrrolate PF 2mg QID Ac tive BuSpar 30mg BID Active Ferrous Sulfate 325 (65 Fe) MG Tablet Delayed Release 1 tablet Orally daily; Duration: 30 days 10/31/2023 Active ACCRUFeR 30 MG Capsule 1 capsule Orally Once daily; Duration: 30 days 09/26/2023 Active Auvelity 45-105mg 1tab BID Active Vitamin D 125mcg daily Active traZODone HCl 50mg tab daily A ctive Omeprazole 40mg daily Active Spravato (84 MG Dose) nasal fritz mine once weekly Active Social History Sex Assigned At : Social History Observation Description Sex Assigned At Female Social History Sexual History: Social Info Question Answer Notes Sexual History Had sex in the past 12 months (vaginal, oral, or anal)? Yes Drugs/Alcohol: Social Info Question Answer Notes Drugs Have you used drugs other than those for medical reasons in the past 12 months? No Steroid Use Have you used anabolic (body building) st eroids? No Alcohol Screen Did you have a drink containing alcohol in the past year? No Points 0 Interpretation Negative Tobacco Use: Social Info Question Answer Notes Tobacco use other than smoking: Are you an other tobac co user? vape Encounters Encounter Location Date Provider Diagnosis [facility] [address] [facility] [address] [place] [address] 01/13/2025 Chiqui Gibson Plan Of Treatment Next Appt Details Provider Name:Aramis Felix, 04/26/2026 02:15:00 PM, [address] [facility], [address], [place], [address], Progress Notes * Alysa MANCINI MDOB:02/1986 (39 yo F)Acc No.[id number]:01/13/2025 Patient: Angeli venitaKatherineAlysa Jo-Ann Provider: Brodie Gibson APRN :1985 A ge:39 Y S ex:Female Date:01/13/2025 Address:[address] [place] [address] Subjective: * Chief Complaints: * N explanon Insertion * Medical History: ASCUS HPV+ Abnormal Pap Acid Reflux Anxiety Bowel Problems Depression Female Problems High Blood Pressure Stomach Problems Urinary Tract Infections Yeast Infections H/O STD BV IUFD Tokotsubu CMP Cervical high risk HPV (human papillomavirus) test positive ASCUS of cervix with negative high risk HPV * 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 Y es C urrently sexually active? Y es H istory of STIs: H uman Papilloma Virus (HPV) L ast Preventive Screening Labs: 2 023. * OB History: P regnancy History (GPA) Total Pregnancies 5 Full Term 2 Premature 1 AB. Induced 1 AB. Spontaneous 0 Ectopics 0 Multiple Births 0 Living 2 G P : 4 Para: 3 P regnancy # 1: 2 009, . P regnancy # 2: Stephanie alanis, 04/2010, female. P regnancy # 3: 2 019, Stebie, normal spontaneous vaginal delivery ().? P regnancy # 4: , Franklyn. 37w IUFD. P regnancy # 5: E DD = 12/17/2023 - Currently . * Surgical History: LEEP 2016 Multiple Lithotripsy T&A [place] Teeth Extraction Lt Breast Lumpectomy umbilical hernia repair oral surgery teeth revision * Hospitalization/Major Diagno stic Procedure: T&A L&D - x3 * Family History: 1 son(s) , 2 daughter(s) . . Nothing documented. * Social History: T obacco Use: T obacco Use/Smoking S MARIA L STATUS: Current every day smoker. Tobacco use other than smoking A re you an other tobacco user? v ape S exual History: S exual History H ad sex in the past 12 months (vaginal, oral, or anal)? Y es D rugs/Alcohol: D rugs H ave you used drugs other than those for medical reasons in the past 12 months? N o Alcohol Screen D id you have a drink containing alcohol in the past year? N o P oints 0 I nterpretation N egative Steroid Use H ave you used anabolic (body building) steroids? N o * Medications: T akingACCRUFeR(Ferric Maltol) 30 MG Capsule 1 capsule Orally Once daily Auvelity , Notes to Pharmacist: 45-105mg 1tab BIDBuSpar , Notes to Pharmacist: 30mg BIDFerrous Sulfate 325 (65 Fe) MG Tablet Delayed Release 1 tablet Orally daily Gabapentin , Notes to Pharmacist: 300mg caps 2capsTIDGlycopyrrolate PF , Notes to Pharmacist: 2mg QIDhydrOXYzine HCl , Notes to Pharmacist: 50mg TIDLoratadine , Notes to Pharmacist: 10mgLORazepam , Notes to Pharmacist: 1 tab TIDOmeprazole , Notes to Pharmacist: 40mg dailySpravato (84 MG Dose) , Notes to Pharmacist: nasal ketamine once weeklytraZODone HCl , Notes to Pharmacist: 50mg tab dailyVitamin D , Notes to Pharmacist: 125mcg dailyTaking ACCRUFeR(Ferric Maltol) 30 MG Capsule 1 capsule Orally Once daily Taking Auvelity , Notes to Pharmacist: 45-105mg 1tab BIDTaking BuSpar , Notes to Pharmacist: 30mg BIDTaking Ferrous Sulfate 325 (65 Fe) MG Tablet Delayed Release 1 tablet Orally daily Taking Gabapentin , Notes to Pharmacist: 300mg caps 2capsTIDTaking Glycopyrrolate PF , Notes to Pharmacist: 2mg QIDTaking hydrOXYzine HCl , Notes to Pharmacist: 50mg TIDTaking Loratadine , Notes to Pharmacist: 10mgTaking LORazepam , Notes to Pharmacist: 1 tab TIDTaking Omeprazole , Notes to Pharmacist: 40mg dailyTaking Spravato (84 MG Dose) , Notes to Pharmacist: nasal ketamine once weeklyTaking traZODone HCl , Notes to Pharmacist: 50mg tab dailyTaking Vitamin D , Notes to Pharmacist: 125mcg daily * Allergies: P ENICILLIN V POTASSIUM (PENICILLIN V POTASSIUM TAB: rash - Allergy - Onset Date 2011-06-06 * Electronic signature of Wilmar Gibson APRN on 08/10/2025 at 03:27 PM EST Sign off status: Pending Visit Status: R /S (Rescheduled) * Provider: Brodie Gibson APRN Date: 0 01/13/2025 Generated for Lluvia lewis/Rodolfo/Cortney on: 10/10/2024 03:27 PM EST
--- OUTSIDE RECORDS SUMMARY | 2025-01-13 08:15 | XMS_ITS ---
Author Organization [facility] Address [address] [facility] [address] [place] [address] Care Team Providers Care Behavioral Health Aide Name Role Phone Paige Chiqui Unavailable [phone] REASON FOR VISIT Nexplanon Insertion Social History Sex Assigned At : Social History Observation Description Sex Assigned At Female Encounters Encounter Location Date Provider Diagnosis [facility] [address] [facility] [address] [place] [address] 01/13/2025 Chiqui Gibson Plan Of Treatment Next Appt Details Provider Name:Aramis Felix, 04/26/2026 02:15:00 PM, [address] , [address], [place], [address], Progress Notes * Alysa MANCINI MDOB:02/1986 (39 yo F)Acc No.[id number]:01/13/2025 Progress Note Patient: Alysa Romero Provider: Brodie Gibson APRN :1985 A ge:39 Y S ex:Female Date:01/13/2025 Address:[address] [place], [place] [address] Subjective: * Chief Complaints: * N explanon Insertion * Electronic signature of Wilmar Gibson APRN on 08/10/2025 at 03:27 PM EST Sign off status: Pending Visit Status: R /S (Rescheduled) * Provider: Brodie Gibson APRN Date: 01/13/2025 Generated for Lluvia lewis/Rodolfo/Cortney on: 1 10/10/2024 03:27 PM EST
--- OUTSIDE RECORDS SUMMARY | 2025-03-26 10:45 | XMS_ITS ---
Author Organization [facility] Address [address] [facility] [address] [place] [address] Care Team Providers Care Commissary Clerk Name Role Phone Chiqui Gibson Unavailable [phone] Shanda Carranza Unavailable [phone] REASON FOR VISIT Annual Medications Medication SIG [...] Encounters Encounter Location Date Provider Diagnosis [facility] [address] [facility] [address] [place] [address] 03/26/2025 Shanda Carranza Plan Of Treatment Next Appt Details Provider Name:Aramis Felix, 04/26/2026 02:15:00 PM, [address] [facility], [facility] [address], [place], [address], Progress Notes * Alysa MANCINI MDOB:02/1986 (39 yo F)Acc No.[id number]:03/26/2025 Progress Note Patient: Alysa Romero Provider: Irving CARRANZA APRN :1985 A ge:39 Y S ex:Female Date:03/26/2025 Address:[address] [place] [address] Subjective: * Chief Complaints: * A nnual [...] Electronic signature of Shanda Carranza APRN on 08/10/2025 at 03:26 PM EST Sign off status: Pending Visit Status: N /S (No-Show) * Provider: Irving CARRANZA APRN Date: 0 03/26/2025 Generated for Lluvia lewis/Rodolfo/Cortney on: 10/10/2024 03:26 PM EST
--- OUTSIDE RECORDS SUMMARY | 2025-06-09 07:00 | XMS_ITS ---
Author Organization [facility] Address [address] [facility] [address] [place] [address] Care Team Providers Care Museum Exhibit Technician Name Role Phone Chiqui Gibson Unavailable [phone] Iisdro, Aramis Unavailable [phone] Results Component Value Reference Range Notes *US Pelvis Complete Transabd ominal/Vaginal (Non-OB) Reviewed date:06/13/2025 07:18:24 PM Interpretation: Performing Lab: Notes/Report: [facility] Transvaginal Pelvic Study Report Name: ALYSA MANCINI Accession/Encounter No:[id number] Procedure/Order ID: [id number] : 1985 Age: 39 Gender: F Study Date: Jun 09, 2025 Study Time: 11:41 AM Reading Group: Tesha Card MD Referring Group: Aramis Felix CNM Ordering Phys: Aramis Felix CNM Rice Drier: Louise Coleman RDMS Equipment: Affiniti 30 Study Quality: Good Indications: Amenorrhea A complete pelvic transvaginal ultrasound was performed. Sag AP Trans Volume cm cm cm ml Uterus 5.71 3.35 4.78 47.87 Right ovary: 2.85 2.32 2.23 7.72 Left ovary: 2.81 2.05 2.41 7.27 Endometrium thickness: 4.2 mm Findings: A transvaginal exam was performed. The uterus is anteverted. The uterus is 5.71 x 3.35 x 4.78 cm, with volume of 47.87 ml. The endometrium measures 4.2 mm. The right ovary measures 2.85 x 2.32 x 2.23 cm, volume 7.72 ml. The left ovary measures 2.81 x 2.05 x 2.41 cm, volume 7.27 ml. The cervix is 2.72 cm long. Conclusions: Uterus and ovaries appear normal. No free fluid or adnexal masses noted Approved By: Tesha Card MD Approved at: June 12, 2025 10:02 PM EDT Electronically Signed on Studycast ALSYA MANCINI 2025-06-09 Page 1 of 1 [facility] - , [facility] REASON FOR VISIT w/i Social History Sex Assigned At : Social History Observation Description Sex Assigned At Female Encounters Encounter Location Date Provider Diagnosis [facility] [address] [facility] [address] [place] [address] 06/09/2025 rAamis Felix Amenorrhea, secondary N91.1 Assessments Encounter Date Diagnosis (ICD Code) Assessment Notes Treatment Notes Treatment Clinical Notes Section Notes 06/09/2025 Amenorrhea, secondary (ICD-10 - N91.1) Plan Of Treatment Next Appt Details Provider Name:Tuliotracey Felix, 04/26/2026 02:15:00 PM, [address], [address], [place], [address], Progress Notes * Alysa MANCINI MDOB:02/1986 (39 yo F)Acc No.[id number]:06/09/2025 Progress Note Patient: Angeli nathan Alysa Jo-Ann Provider: Sixto Felix CNM :1985 A ge:39 Y S ex:Female Date:06/09/2025 Address:[address] [place] [address] Subjective: * Chief Complaints: * W /i Assessment: * Assessment: 1. A menorrhea, secondary - N91.1 (Primary) Plan: * Treatment: Billing Information: * Procedure Codes: * Electronic signature of Anette Felix CNM on 08/10/2025 at 03:27 PM EST Sign off status: Pending Visit Status: Pura BACH (Check Out) * Provider: Sixto Felix CNM Date: 0 06/09/2025 Generated for Lluvia lewis/Rodolfo/eTransmitting on: 10/10/2024 03:27 PM EST
--- OUTSIDE RECORDS SUMMARY | 2025-07-13 09:30 | XMS_ITS ---
Author Organization [facility] Address [address] [facility] [address] [place] [address] Care Team Providers Care Gis Scientist Name Role Phone Chiqui Gibson Unavailable [phone] Aramis Felix Unavailable [phone] REASON FOR VISIT medication f/u Social History Sex Assigned At : Social History Observation Description Sex Assigned At Female Encounters Encounter Location Date Provider Diagnosis [facility] [address] [facility] [address] [place] [address] 07/13/2025 Aramis Felix Plan Of Treatment Next Appt Details Provider Name:Aramis Felix, 04/26/2026 02:15:00 PM, [address] [facility], [place], [address], Progress Notes * Alysa MANCINI MDOB:02/1986 (39 yo F)Acc No.[id number]:07/13/2025 Progress Note Patient: Alysa Romero Provider: Sixto Felix CNM :1985 A ge:39 Y S ex:Female Date:07/13/2025 Address:[address] [place], [place] [id number] Subjective: * Chief Complaints: * M edication f/u * Electronic signature of Anette Felix CNM on 08/10/2025 at 03:27 PM EST Sign off status: Pending Visit Status: R /S (Rescheduled) * Provider: Sixto Felix CNM Date: 1 Generated for Lluvia Galloway on: 10/10/2024 03:27 PM EST
--- OUTSIDE RECORDS SUMMARY | 2025-07-21 08:15 | XMS_ITS ---
Author Organization [facility] Address [address] [facility] [address] [place] [address] Care Team Providers Care Lay Out Inspector Name Role Phone Chiqui Gibson Unavailable [phone] IsidroAnette rosadoluis a Unavailable [phone] REASON FOR VISIT medication/lab follow up Social History Sex Assigned At : Social History Observation Description Sex Assigned At Female Encounters Encounter Location Date Provider Diagnosis [facility] [address] [facility] [address] [place] [address] 07/21/2025 Aramis Felix Plan Of Treatment Next Appt Details Provider Name:Tuliotracey Felix, 04/26/2026 02:15:00 PM, [address] [facility], [address], [place], [address], Progress Notes * Alysa MANCINI MDOB:02/1986 (39 yo F)Acc No.[id number]:07/21/2025 Progress Note Patient: Alysa Romero Provider: Sixto Felix CNM :1985 A ge:39 Y S ex:Female Date:07/21/2025 Address:[address] [place], [place] [id number] Subjective: * Chief Complaints: * M edication/lab follow up * Electronic signature of Anette Felix CNM on 08/10/2025 at 03:28 PM EST Sign off status: Pending Visit Status: C ANC-PNF (Cancelled Patient No Fault) * Provider: Sixto Felix CNM Date: 09/20/2024 Generated for Lluvia Galloway on: 10/10/2024 03:28 PM EST
[2025-08-10] VITALS (13 sets, daily range): BP systolic 103–122; BP diastolic 67–85; PULSE 60–73; RESP 9–20; TEMP 36.5–36.7; O2SAT 94–98; BMI 22.8
--- NOTE | 2025-08-10 15:10 | ECG_ITS ---
APPROVED REPORT Exam: Resting ECG HR:69 bpm ECG Measurements Heart Rate 69 AXES MI 161 P 62 QRSd 117 QRS -61 QT 422 T 59 QTc 442 Conclusion ELECTRONIC VENTRICULAR PACEMAKER ABNORMAL RHYTHM ECG Electronically signed by : LEAAN WEBSTER, 08/12/2025 14:12:28
--- OUTSIDE RECORDS SUMMARY | 2025-08-10 15:26 | XMS_ITS | Data Portability ---
Author Organization [facility] [place] [facility] Address [address] [place] [address] Care Team Providers Care [employer] Vice President Name Role Phone ADITI SALOMON Primary Care Provider [phone] Assessment Encounter Date Assessment Date Assessment LastModified [...] followup and strict limitations for sling placement. [email or web address] Not available 11/17/2024 14:21:03 11/23/2024 11/23/2024 Continue [...] to the incomplete emptying. Follow-up with [facility]. [email or web address] Not available 12/06/2024 14:19:39 12/17/2024 12/17/2024 She is not having symptoms of stress incontinence at this time. She has occasional urgency. Hesitancy has improved. [email or web address] Not available 12/27/2024 08:17:15 04/22/2025 04/22/2025 - Stress urinary incontinence managed with TOT sling, maintaining dryness. - Difficulty initiating urination, possibly due to sling tension. [email or web address] Not available 04/22/2025 16:39:21 Plan of Treatment Reminders Order Date Submit Date Provider Last Modified By Organization Details Last Modified Time Details Appointments RECHECK 2025 03:15P Jo-Ann CANNON MD Not available Not available Not available RECHECK 2025 01:00P Jo-Ann CANNON MD Not available Not available Not available Lab urinalysi s panel, auto 2024 [email or web address] [place] [address] With [facility], [address] , [address], [place], [address], 12/18/2024 09:27:10 culture, urine 2024 025 [facility], [address] [place], [address], 12/19/2024 10:41:47 urinalysi s panel, auto 2024 [email or web address] [place] [address] [facility], [address], [address], , [address], 11/25/2024 13:17:40 Referral None recorded. Procedures None recorded. Surgeries None recorded. Imaging None recorded. Medication Orders hydrocodo ne 7.5 mg-acetam inophen 325 mg tablet 2024 025 [facility], [address] [place], [address], 11/17/2024 14:25:05 Patient TargetsNo targets recorded. Patient Instructions Encounter Date Encounter Id Patient Instructions Last Modified By Organization Details Last Modified Time 04/22/2025 [id number] learning about healthy weight [email or web address] Not available 04/29/2025 10:48:24 - Continue monitoring urinary symptoms and report any changes. - Follow up annually unless symptoms worsen. [email or web address] Not available 04/22/2025 16:39:23 Reason for Referral None Reported. Results Created Date Observation Date Name Description Value Unit Range Abnormal Flag Note LastModifiedBy Organization Detail LastModifiedTime 10/29/1910/29/2024 urina lysis panel , auto Unknown Analyte Clean Catch Not Available [facility] [place] [facility] [address], [place], [address], 10/29/2024 17:03:38 10/29/19 25 10/29/2024 urina lysis panel , auto Unknown Analyte Straw Not Available [facility] With [address], [place], [address], 10/29/2024 17:03:38 10/29/19 25 10/29/2024 urina lysis panel , auto Unknown Analyte Slight ly Hazy Not Available [facility] With [address], [place], [address], 10/29/2024 17:03:38 10/29/19 25 10/29/2024 urina lysis panel , auto Unknown Analyte 1.025 Not Available [facility] With [address], [place], [address], 10/29/2024 17:03:38 10/29/19 25 10/29/2024 urina lysis panel , auto Unknown Analyte 1.003- 1.035 Not Available [facility] With [address], [place], [address], 10/29/2024 17:03:38 10/29/19 25 10/29/2024 urina lysis panel , auto Unknown Analyte 5.0 Not Available [facility] With [address], [place], [address], 10/29/2024 17:03:38 10/29/19 25 10/29/2024 urina lysis panel , auto Unknown Analyte 5.0-8. 0 Not Available [facility] With [address], [place], [address], 10/29/2024 17:03:38 10/29/19 25 10/29/2024 urina lysis panel , auto Unknown Analyte Negati ve Not Available [facility] With [address], [place], [address], 10/29/2024 17:03:38 10/29/19 25 10/29/2024 urina lysis panel , auto Unknown Analyte Negati ve Not Available [facility] With [address], [place], [address], 10/29/2024 17:03:38 10/29/19 25 10/29/2024 urina lysis panel , auto Unknown Analyte Negati ve Not Available [facility] With [address], [place], [address], 10/29/2024 17:03:38 10/29/19 25 10/29/2024 urina lysis panel , auto Unknown Analyte Negati ve Not Available [facility] With [address], [place], [address], 10/29/2024 17:03:38 10/29/19 25 10/29/2024 urina lysis panel , auto Unknown Analyte 30 mg/dl (+) Not Available [facility] With [address], [place], [address], 10/29/2024 17:03:38 10/29/19 25 10/29/2024 urina lysis panel , auto Unknown Analyte Negati ve Not Available [facility] With [address], [place], [address], 10/29/2024 17:03:38 10/29/19 25 10/29/2024 urina lysis panel , auto Unknown Analyte Normal Not Available [facility] With [address], [place], [address], 10/29/2024 17:03:38 10/29/19 25 10/29/2024 urina lysis panel , auto Unknown Analyte Normal Not Available [facility] With [address], [place], [address], 10/29/2024 17:03:38 10/29/19 25 10/29/2024 urina lysis panel , auto Unknown Analyte Negati ve Not Available [facility] With [address], [place], [address], 10/29/2024 17:03:38 10/29/19 25 10/29/2024 urina lysis panel , auto Unknown Analyte Negati ve Not Available [facility] With [address], [place], [address], 10/29/2024 17:03:38 10/29/19 25 10/29/2024 urina lysis panel , auto Unknown Analyte 1 mg/dl Not Available [facility] With [address], [place], [address], 10/29/2024 17:03:38 10/29/19 25 10/29/2024 urina lysis panel , auto Unknown Analyte Normal 1 mg/dl Not Available [facility] With [address], [place], [address], 10/29/2024 17:03:38 10/29/19 25 10/29/2024 urina lysis panel , auto Unknown Analyte 1 mg/dl (+) Not Available [facility] With [address], [place], [address], 10/29/2024 17:03:38 10/29/19 25 10/29/2024 urina lysis panel , auto Unknown Analyte Negati ve Not Available [facility] With [address], [place], [address], 10/29/2024 17:03:38 10/29/19 25 10/29/2024 urina lysis panel , auto Unknown Analyte Negati ve Not Available [facility] [place] With [address], [place], [address], 10/29/2024 17:03:38 10/29/19 25 10/29/2024 urina lysis panel , auto Unknown Analyte Negati ve Not Available [facility] [place] With [address], [place], [address], 10/29/2024 17:03:38 11/18/19 25 11/17/2024 urina lysis panel , auto Unknown Analyte Clean Catch Not Available [facility] [address] [place] [address], [address], 11/17/2024 12:39:07 11/18/19 25 11/17/2024 urina lysis panel , auto Unknown Analyte Yellow Not Available [facility] [address] [place] [address], [address], 11/17/2024 12:39:07 11/18/19 25 11/17/2024 urina lysis panel , auto Unknown Analyte Clear Not Available [facility] [address] [place] [address], [address], 11/17/2024 12:39:07 11/18/19 25 11/17/2024 urina lysis panel , auto Unknown Analyte 1.[address] [facility] [address] [place] [address], [address], 11/17/2024 12:39:07 11/18/19 25 11/17/2024 urina lysis panel , auto Unknown Analyte 1.003 - 1.030 Not Available [facility] [address] [place] [address], [address], 11/17/2024 12:39:07 11/18/19 25 11/17/2024 urina lysis panel , auto Unknown Analyte 5.[address] [facility] [address] [place] [address], [address], 11/17/2024 12:39:07 11/18/19 25 11/17/2024 urina lysis panel , auto Unknown Analyte 5.0 - 8.0 Not [address] [facility] [address] [place] [address], [address], 11/17/2024 12:39:07 11/18/19 25 11/17/2024 urina lysis panel , auto Unknown Analyte 25 Yuli/uL Not Available [facility] [address] [place] [address], [address], 11/17/2024 12:39:07 11/18/19 25 11/17/2024 urina lysis panel , auto Unknown Analyte Negati ve Not Available [facility] [address] [place] [address], [address], 11/17/2024 12:39:07 11/18/19 25 11/17/2024 urina lysis panel , auto Unknown Analyte Negati ve Not Available [facility] [address] [place] [address], [phone], 11/17/2024 12:39:07 11/18/19 25 11/17/2024 urina lysis panel , auto Unknown Analyte Negati ve Not Available [facility] [address] [place] [address], [address], 11/17/2024 12:39:07 11/18/19 25 11/17/2024 urina lysis panel , auto Unknown Analyte 30 mg/dL Not Available [facility] [address] [place] [address], [address], 11/17/2024 12:39:07 11/18/19 25 11/17/2024 urina lysis panel , auto Unknown Analyte Negati ve Not Available [facility] [address] [place] [address], [phone], 11/17/2024 12:39:07 11/18/19 25 11/17/2024 urina lysis panel , auto Unknown Analyte >1000 mg/dL Not Available [facility] [address] [place] [address], [phone], 11/17/2024 12:39:07 11/18/19 25 11/17/2024 urina lysis panel , auto Unknown Analyte Normal Not Available [facility] [address] [place] [address], [address], 11/17/2024 12:39:07 11/18/19 25 11/17/2024 urina lysis panel , auto Unknown Analyte Negati ve Not Available [facility] [address] [place] [address], [address], 11/17/2024 12:39:07 11/18/19 25 11/17/2024 urina lysis panel , auto Unknown Analyte Negati ve Not Available [facility] [address] [place] [address], [address], 11/17/2024 12:39:07 11/18/19 25 11/17/2024 urina lysis panel , auto Unknown Analyte 1 mg/dL Not Available [facility] [address] [place] [address], [phone], 11/17/2024 12:39:07 11/18/19 25 11/17/2024 urina lysis panel , auto Unknown Analyte Normal Not Available [facility] [address] [place] [address], [address], 11/17/2024 12:39:07 11/18/19 25 11/17/2024 urina lysis panel , auto Unknown Analyte 1 mg/dL Not Available [facility] [address] [place] [address], [address], 11/17/2024 12:39:07 11/18/19 25 11/17/2024 urina lysis panel , auto Unknown Analyte Negati ve Not Available [facility] [address] [place] [address], [address], 11/17/2024 12:39:07 11/18/19 25 11/17/2024 urina lysis panel , auto Unknown Analyte Trace Not Available [facility] [address] [place] [address], [address], 11/17/2024 12:39:07 11/18/19 25 11/17/2024 urina lysis panel , auto Unknown Analyte Negati ve Not Available [facility] [address] [place] [address], [address], 11/17/2024 12:39:07 11/24/19 25 11/23/2024 urina lysis panel , auto Unknown Analyte Clean Catch Not Available [facility] With [address], [address], 11/23/2024 16:32:23 11/24/19 25 11/23/2024 urina lysis panel , auto Unknown Analyte Yellow Not Available [facility] With [address], [place], [address], 11/23/2024 16:32:23 11/24/19 25 11/23/2024 urina lysis panel , auto Unknown Analyte Slight ly Cloudy Not Available [facility] With [address], , [address], 11/23/2024 16:32:23 11/24/19 25 11/23/2024 urina lysis panel , auto Unknown Analyte 1.015 Not Available [facility] With [address], , [address], 11/23/2024 16:32:23 11/24/19 25 11/23/2024 urina lysis panel , auto Unknown Analyte 1.003 - 1.030 Not Available [facility] With [address], , [address], 11/23/2024 16:32:23 11/24/19 25 11/23/2024 urina lysis panel , auto Unknown Analyte 5.0 Not Available [facility] With [address], , [address], 11/23/2024 16:32:23 11/24/19 25 11/23/2024 urina lysis panel , auto Unknown Analyte 5.0 - 8.0 Not Available [facility] With [address], , [address], 11/23/2024 16:32:23 11/24/19 25 11/23/2024 urina lysis panel , auto Unknown Analyte Negati ve Not Available [facility] With [address], [address], 11/23/2024 16:32:23 11/24/19 25 11/23/2024 urina lysis panel , auto Unknown Analyte Negati ve Not Available [facility] With [address], , [address], 11/23/2024 16:32:23 11/24/19 25 11/23/2024 urina lysis panel , auto Unknown Analyte Negati ve Not Available [facility] With [address], , [address], 11/23/2024 16:32:23 11/24/19 25 11/23/2024 urina lysis panel , auto Unknown Analyte Negati ve Not Available [facility] With [address], , [address], 11/23/2024 16:32:23 11/24/19 25 11/23/2024 urina lysis panel , auto Unknown Analyte Negati ve Not Available [facility] With [address], , [address], 11/23/2024 16:32:23 11/24/19 25 11/23/2024 urina lysis panel , auto Unknown Analyte Negati ve Not Available [facility] With [address], , [address], 11/23/2024 16:32:23 11/24/19 25 11/23/2024 urina lysis panel , auto Unknown Analyte >1000 mg/dL Not Available [facility] [address], , [address], 11/23/2024 16:32:23 11/24/19 25 11/23/2024 urina lysis panel , auto Unknown Analyte Normal Not Available [facility] [address], , [address], 11/23/2024 16:32:23 11/24/19 25 11/23/2024 urina lysis panel , auto Unknown Analyte Negati ve Not Available [facility] [address], , [address], 11/23/2024 16:32:23 11/24/19 25 11/23/2024 urina lysis panel , auto Unknown Analyte Negati ve Not Available [facility] With [address], , [address], 11/23/2024 16:32:23 11/24/19 25 11/23/2024 urina lysis panel , auto Unknown Analyte Normal Not Available [facility] With [address], , [address], 11/23/2024 16:32:23 11/24/19 25 11/23/2024 urina lysis panel , auto Unknown Analyte Normal Not Available [facility] [address] [place] [address] Rd [address], , [address], 11/23/2024 16:32:23 11/24/19 25 11/23/2024 urina lysis panel , auto Unknown Analyte Negati ve Not Available [facility] [address] [place] [address] Rd [address], , [address], 11/23/2024 16:32:23 11/24/19 25 11/23/2024 urina lysis panel , auto Unknown Analyte Negati ve Not Available [facility] With [address], , [address], 11/23/2024 16:32:23 11/24/19 25 11/23/2024 urina lysis panel , auto Unknown Analyte 50 Rocael/uL Not Available [facility] [address], , [address], 11/23/2024 16:32:23 11/24/19 25 11/23/2024 urina lysis panel , auto Unknown Analyte Negati ve Not Available [facility] [address], , [address], 11/23/2024 16:32:23 12/18/19 25 2024 URINE CULTU RE urine culture No growth day 3. Not Available [facility] [address] [facility], , [address], 2024 12:52:23 12/18/19 25 12/17/2024 urina lysis panel , auto Unknown Analyte Clean Catch Not Available [facility] With [address], [place], [address], 12/17/2024 16:54:04 12/18/19 25 12/17/2024 urina lysis panel , auto Unknown Analyte Yellow Not Available [facility] [place] With [address], [place], [address], 12/17/2024 16:54:04 12/18/19 25 12/17/2024 urina lysis panel , auto Unknown Analyte Clear Not Available [facility] [place] With [address], [place], [address], 12/17/2024 16:54:04 12/18/19 25 12/17/2024 urina lysis panel , auto Unknown Analyte 1.025 Not Available [facility] [place] With [address], [place], [address], 12/17/2024 16:54:04 12/18/19 25 12/17/2024 urina lysis panel , auto Unknown Analyte 1.003 - 1.030 Not Available [facility] With [address], [place], [address], 12/17/2024 16:54:04 12/18/19 25 12/17/2024 urina lysis panel , auto Unknown Analyte 5.0 Not Available [facility] With [address], [place], [address], 12/17/2024 16:54:04 12/18/19 25 12/17/2024 urina lysis panel , auto Unknown Analyte 5.0 - 8.0 Not Available [facility] With [address], [place], [address], 12/17/2024 16:54:04 12/18/19 25 12/17/2024 urina lysis panel , auto Unknown Analyte 75 Yuli/uL Not Available [facility] [address], [place], [address], 12/17/2024 16:54:04 12/18/19 25 12/17/2024 urina lysis panel , auto Unknown Analyte Negati ve Not Available [facility] [address], [place], [address], 12/17/2024 16:54:04 12/18/19 25 12/17/2024 urina lysis panel , auto Unknown Analyte Negati ve Not Available [facility] [place] [address], [place], [address], 12/17/2024 16:54:04 12/18/19 25 12/17/2024 urina lysis panel , auto Unknown Analyte Negati ve Not Available [facility] With [address], [place], [address], 12/17/2024 16:54:04 12/18/19 25 12/17/2024 urina lysis panel , auto Unknown Analyte Negati ve Not Available [facility] With [address], [place], [address], 12/17/2024 16:54:04 12/18/19 25 12/17/2024 urina lysis panel , auto Unknown Analyte Negati ve Not Available [facility] With [address], [place], [address], 12/17/2024 16:54:04 12/18/19 25 12/17/2024 urina lysis panel , auto Unknown Analyte >1000 mg/dL Not Available [facility] With [address], [place], [address], 12/17/2024 16:54:04 12/18/19 25 12/17/2024 urina lysis panel , auto Unknown Analyte Normal Not Available [facility] With [address], [place], [address], 12/17/2024 16:54:04 12/18/19 25 12/17/2024 urina lysis panel , auto Unknown Analyte Negati ve Not Available [facility] With [address], [place], [address], 12/17/2024 16:54:04 12/18/19 25 12/17/2024 urina lysis panel , auto Unknown Analyte Negati ve Not Available [facility] With [address], [place], [address], 12/17/2024 16:54:04 12/18/19 25 12/17/2024 urina lysis panel , auto Unknown Analyte Normal Not Available [facility] With [address], [place], [address], 12/17/2024 16:54:04 12/18/19 25 12/17/2024 urina lysis panel , auto Unknown Analyte Normal Not Available [facility] With [address], [place], [address], 12/17/2024 16:54:04 12/18/19 25 12/17/2024 urina lysis panel , auto Unknown Analyte 1 mg/dL Not Available [facility] With [address], [place], [address], 12/17/2024 16:54:04 12/18/19 25 12/17/2024 urina lysis panel , auto Unknown Analyte Negati ve Not Available [facility] With [address], [place], [address], 12/17/2024 16:54:04 12/18/19 25 12/17/2024 urina lysis panel , auto Unknown Analyte Negati ve Not Available [facility] With [address], [place], [address], 12/17/2024 16:54:04 12/18/19 25 12/17/2024 urina lysis panel , auto Unknown Analyte Negati ve Not Available [facility] With [address], [place], [address], 12/17/2024 16:54:04 07/29/20 25 07/29/2025 urina lysis panel , auto Unknown Analyte Clean Catch Not Available [facility] With [address], [place], [address], 07/29/2025 13:16:34 07/29/20 25 07/29/2025 urina lysis panel , auto Unknown Analyte Yellow Not Available [facility] [address], [place], [address], 07/29/2025 13:16:34 07/29/20 25 07/29/2025 urina lysis panel , auto Unknown Analyte Clear Not Available [facility] [address], [place], [address], 07/29/2025 13:16:34 07/29/20 25 07/29/2025 urina lysis panel , auto Unknown Analyte 1.005 Not Available [facility] [address], [place], [address], 07/29/2025 13:16:34 07/29/20 25 07/29/2025 urina lysis panel , auto Unknown Analyte 1.003 - 1.030 Not Available [facility] [address], [place], [address], 07/29/2025 13:16:34 07/29/20 25 07/29/2025 urina lysis panel , auto Unknown Analyte 7.0 Not Available [facility] With [address], [place], [address], 07/29/2025 13:16:34 07/29/20 25 07/29/2025 urina lysis panel , auto Unknown Analyte 5.0 - 8.0 Not Available [facility] [address], [place], [address], 07/29/2025 13:16:34 07/29/20 25 07/29/2025 urina lysis panel , auto Unknown Analyte Negati ve Not Available [facility] [address], [place], [address], 07/29/2025 13:16:34 07/29/20 25 07/29/2025 urina lysis panel , auto Unknown Analyte Negati ve Not Available [facility] [address], [place], [address], 07/29/2025 13:16:34 07/29/20 25 07/29/2025 urina lysis panel , auto Unknown Analyte Negati ve Not Available [facility] With [address], [place], [address], 07/29/2025 13:16:34 07/29/2007/29/2025 urina lysis panel , auto Unknown Analyte Negati ve Not Available [facility] With [address], [place], [address], 07/29/2025 13:16:34 07/29/20 25 07/29/2025 urina lysis panel , auto Unknown Analyte Negati ve Not Available [facility] [address], [place], [address], 07/29/2025 13:16:34 07/29/20 25 07/29/2025 urina lysis panel , auto Unknown Analyte Negati ve Not Available [facility] [address], [place], [address], 07/29/2025 13:16:34 07/29/20 25 07/29/2025 urina lysis panel , auto Unknown Analyte >1000 mg/dL Not Available [facility] [address], [place], [address], 07/29/2025 13:16:34 07/29/20 25 07/29/2025 urina lysis panel , auto Unknown Analyte Normal Not Available [facility] With [address], [place], [address], 07/29/2025 13:16:34 07/29/20 25 07/29/2025 urina lysis panel , auto Unknown Analyte Negati ve Not Available [facility] [address], [place], [address], 07/29/2025 13:16:34 07/29/20 25 07/29/2025 urina lysis panel , auto Unknown Analyte Negati ve Not Available [facility] [address], [place], [address], 07/29/2025 13:16:34 07/29/20 25 07/29/2025 urina lysis panel , auto Unknown Analyte Normal Not Available [facility] With [address], [place], [address], 07/29/2025 13:16:34 07/29/20 25 07/29/2025 urina lysis panel , auto Unknown Analyte Normal Not Available [facility] [address], [place], [address], 07/29/2025 13:16:34 07/29/20 25 07/29/2025 urina lysis panel , auto Unknown Analyte Negati ve Not Available [facility] [place] [address], [place], [address], 07/29/2025 13:16:34 07/29/20 25 07/29/2025 urina lysis panel , auto Unknown Analyte Negati ve Not Available [facility] [address], [place], [address], 07/29/2025 13:16:34 07/29/20 25 07/29/2025 urina lysis panel , auto Unknown Analyte Negati ve Not Available [facility] With [address], [place], [address], 07/29/2025 13:16:34 07/29/20 25 07/29/2025 urina lysis panel , auto Unknown Analyte Negati ve Not Available [facility] With [address], [place], [address], 07/29/2025 13:16:34 Result Notes None recorded. Problems No Known Problems Procedures Surgical History Date Name Laterality Status Provider Name and Address Organization Details Recorded Time Post Void Residual; Ultrasound completed Oksana Porras [facility] 11/23/2024 16:43:00 Imaging Results None recorded. Procedure Notes None recorded. Medical Equipment None Reported. Allergies Allergen ID Allergen Name Allergen Category Reaction Reaction Severity Criticality Documentation Date Start Date Code Code System Note Provider Name and Address Organization Details Recorded Time 760374 Product containin g penicilli n (product) medicatio n Not available Not available Not available 02/18/2018 12313 8001 SNOMED Petra Duran [facility] 8 15:24:44 802578 penicilli n V Not available other Not available low 07/29/20252022 7984 RxNorm rash Not Available Mama - External Data Service - prod 05:55:22 259266 dapaglifl ozin propanedi ol medicatio n diarrhea Not available low 07/29/20252024 24880 66 RxNorm Not Available amilcar - External Data Service - prod 5 05:56:33 959187 metoprolo l Not available diarrhea Not available low 07/29/20252024 6918 RxNorm Not Available amilcar - External Data Service - prod 05:56:33 Medications Name Sig Start Date Stop Date [...] Not Kelley ilable Not Available spironolacton e 04/22 completed Not Available Not Available Not Available nadolol active Not Available Not Avail able Not Available trazodone active Not Available Not Kelley ilable Not Available Lamictal active Not Available Not Avai lable Not Available gabapentin active Not Available Not Av ailable Not Available Jardiance active Not Available Not Kelley ilable Not Available Zepbound 04/22 completed Not Available Not Available Not Available Vitals Date Recorded Body height Body mass index (BMI) Body weight Provider Name and Address Organization Details Last Updated DateTime 11/23/2024 160.02 cm 24.6 kg/m2 75946.34 g Oksana Vern [facility] 11/23/2024 16:32:09 Date Recorded Body height Body mass index (BMI) Body weight Provider Name and Address Organization Details Last Updated DateTime 12/17/2024 160.02 cm 24.6 kg/m2 68497.34 g [facility] 12/17/2024 16:53:18 Date Recorded Body height Body mass index (BMI) Body weight Provider Name and Address Organization Details Last Updated DateTime 04/22/2025 160.02 cm 20.2 kg/m2 48382.53 g Blade [facility] 04/22/2025 16:43:14 Date Recorded Body height Body mass index (BMI) Body weight Provider Name and Address Organization Details Last Updated DateTime 07/29/2025 160.02 cm 20.2 kg/m2 88585.53 g Ebony West [facility] 07/29/2025 13:16:07 Social History Question Answer Notes LastModified by Organizat ion Details LastModified Time Tobacco Smoking Status Former Smoker Blade Muñoz [facility] 10/29/2024 17:00:54 Marital Status [email or web address] Informatio n not available 02/18/2018 What Was The Date Of Your Most Recent Tobacco Screening? 04/22/2025 [email or web address] Information not available 04/22/2025 Has Tobacco Cessation Counseling Been Provided? Yes [email or web address] Information not available 02/18/2018 On What Date Was Tobacco Cessation Counseling Provided? 02/26/2018 [email or web address] Information not available 02/26/2018 Sex: Unknown Functional Status Question Answer Note LastModified by Organizat ion Details LastModified Time What is your level of alcohol consumption? Occasional [email or web address] Information not available 02/18/2018 Mental Status None recorded. Family History Relationship Description Onset Age of this Age Resolved Age Notes LastModified by Organization Details LastModified Time Mother Family history of malignant neoplasm [email or web address] Not available 02/18 15:26:02 Maternal Grandmother Family history of malignant neoplasm [email or web address] Not available 02/18 15:26:10 Unspecified Relation Diabetes [...] Diagnosis SNOMED-CT Code Diagnosis ICD10 Code Diagnosis IMO Codes Diagnosis Note [id number] MD SEDRICK [facility] [address] [place] [address] 02/18/2018 14:18:27 02/18/2018 15:58:52 Normal 00926610 Z34.90 Kidney stone 29002680 N2 0.0 Ureteric stone 57138564 N20.1 [id number] LEO JOSE MD [facility] [address] [place] [address] 02/19/2018 13:56:01 02/19/2018 15:02:10 Ureteric stone 32867384 N20.1 [id number] LEO JOSE MD SURGERY SCHEDULE [address] [address] 02/24/2018 07:20:26 02/24/2018 07:24:23 Ureteric stone 76483432 N20.1 [id number] LEO JOSE MD [facility] [address] [place] [address] 02/26/2018 13:58:19 02/26/2018 14:38:30 Kidney stone 77487247 N20.0 [id number] ANGELI CANNON MD [facility] [address],[place] [address] 10/29/2024 15:58:18 10/29/2024 19:05:50 Female urinary stress incontinence 36955948 N39.3 Recurrent urinary tract infection 308488367 N39.0 [id number] ANGELI CANNON MD SURGERY SCHEDULE [address] [address] 11/17/2024 11:55:00 11/17/2024 11:56:20 Postoperative pain 501053546 G89.18 [id number] ANGELI CANNON MD [facility] [address] [place] [address] 11/23/2024 16:25:47 11/23/2024 16:42:39 Female urinary stress incontinence 65350509 N39.3 Recurrent urinary tract infection 686704351 N39.0 [id number] ANGELI CANNON MD [facility] [address] [place] [place] [address] 12/17/2024 16:37:18 12/18/2024 14:38:12 Urinary tract infectious disease 04637740 N39.0 Female uri nary stress incontinence 65773896 N39.3 [id number] ANGELI CANNON MD [facility] [address] [place] [place] [address] 04/22/2025 16:00:22 04/30/2025 04:11:46 Female urinary stress incontinence 48199147 N39.3 [id number] - Monitor TOT sling effectiven ess. - Consider gentle dilation if urination difficulty worsens. Delay when starting to pass urine 7230688 R39.11 947979 - Monitor urination difficulty and consider interventi on if symptoms persist. Health Concerns Section Related Observation LastModified by Organization Detai ls LastModified Time None Recorded Concern Status LastModified by Organization Details LastModified Time None Recorded Advance Directives Directive None Recorded Payers Insurance Date Sequence Insurance Name Policy Number Policy Alcantara Covered Member ID Alcantara Member ID Guarantor Name 11/17/2024 2 [place] [id number] 3 Alysa Mancini [id number] Alysa Mancini 11/17/2024 GENERIC INSURANCE - MOVED-HOLD Alysa Live Mancini 07/28/2025 1 [place] [id number] 3 Alysa Andrew Mancini [id number] Alysa Mancini Notes Date Note Type Note Provider Name and Address Organization Details Recorded Time 11/23/2024 text/html 38-year-old female in the office for follow-up evaluation and [...] gross hematuria or dysuria. ANGELI CANNON MD [address] [place] [address], [phone], [facility] 12/06/2024 14:19:54 12/17/2024 text/html 38-year-old female in the office for follow-up evaluation and [...] gross hematuria or dysuria. ANGELI CANNON MD [address] [place] [address], [phone], [facility] 12/27/2024 08:17:31 04/22/2025 text/html The patient is a 39-year-old female presenting with a follow-up evaluation for female stress urinary incontinence and overactive bladder symptoms. She underwent a TOT sling placement for stress incontinence, which has been effective in maintaining dryness without the need for pads. She reports occasional slight hesitancy. The patient has a history of urolithiasis and a pacemaker, relevant to her current care. Documentation on this patient encounter was supported using voice-enabled Al technology. The patient consented to recording for the purpose of documenting the encounter. Provider reviewed content of the generated note prior to signature. ANGELI CANNON MD [address] [place] [address], [phone], [facility] 04/29/2025 10:48:37 07/29/2025 text/html The patient is a 39-year-old female presenting with increased frequency of urination and nocturia. She reports experiencing urgency and frequency of urination, with episodes of nocturia occurring three to four times per night over the past month or two. She has been on long-term nitrofurantoin to prevent urinary tract infections, which she previously experienced frequently. The patient has a history of female stress urinary incontinence, for which she underwent TOT sling placement. She reports no current stress incontinence, although she occasionally experiences minor leakage when her bladder is overly full. She has a history of urolithiasis and a cardiac pacemaker. Recent urine analysis showed no signs of infection, and she is awaiting diabetes screening results ordered by her 3d specialist. Documentation on this patient encounter was supported using voice-enabled Al technology. The patient consented to recording for the purpose of documenting the encounter. Provider reviewed content of the generated note prior to signature. - Urine analysis: No signs of infection Not Available Not Available Not Available OBGyn Episode No OBEpisode recorded.
--- OUTSIDE RECORDS SUMMARY | 2025-08-10 15:26 | XMS_ITS | Encounter Summary ---
Author Organization [facility] Address [address] [place] [address] Care Team Providers Care Industrial Fabric Cutter Name Role Phone Sandro Sebastian MD Primary Care Provider [phone] Encounter Details Date Type Department Care Team (Late st Contact Info) Description 11/27/2023 Orders Only External Location [address] [place] [address] Provider, External Social History Tobacco Use Types [...] Department Care Team (Late Contact Info) Description 08/24/2025 2:20 PM EST Office Visit [facility] [place] [address], [address] [place] [address] Galo Leung MD [address] [place] [address] documented as of this encounter Procedures Procedure Name Priority Date/Time Associated Diagnosis Comments XR OUTSIDE IMAGES 11/27/2023 10:18 AM EDT documented in this encounter Results * XR OUTSIDE IMAGES (11/27/2023 10:18 AM EDT) Anatomical Region Laterality Modality Radiographic Angela ging 11/27/2023 10:1 8 AM EDT External Provider IMG XR PROCEDURES Final Result documented in this encounter Visit Diagnoses Not on filedocumented in this encounter Additional Health Concerns Assessment Noted Time PHQ-9 Depression Total Score: 24 023 12:42 PM EST documented as of this encounter Care Teams Industrial Fabric Cutter Relationship Specialty Start Date End Date Sandro Sebastian MD [address] [place], [place] [id number] PCP - General 01/27/21 documented as of this encounter
--- OUTSIDE RECORDS SUMMARY | 2025-08-10 15:26 | XMS_ITS | Encounter Summary ---
Author Organization [facility] Address [address] [place] [address] Care Team Providers Care Mortuary Operations Manager Name Role Phone Sandro Sebastian MD Primary Care Provider [phone] Reason for Visit * Reason Onset Date Comments HCN Clinical Concern/Question 06/08/2025 Encounter Details Date Type Department Care Team ([facility] st Contact Info) Description 06/08/2025 Telephone [facility] [place] [address], [address] [place] [address] Galo Leung MD [address] [place] [address] HCN Clinical Concern/Question Social History Tobacco Use Types Packs/Day Years [...] encounter Miscellaneous Notes * Telephone Encounter - Cailin Tierney - 06/08/2025 1:19 PM EDT Clinical Concern/Question Reason for Call: Patient calling to speak with clinical staff regarding ECHO results. States her phone is messed up currently but can reach mom or and go over results with them. Best contact number: Other: [phone] or [phone] Optimal time of day to reach caller: ANYTIME Additional comments/information from caller: None Note: Please do not reply to this message. Follow-up communication and further actions as a result of this message need to be communicated with the patient directly, if the patient is not active onMyChart. If the patient is active on MyChart, they will receive notification of the communication/outcome via [employer]. documented in this encounter Plan of Treatment Upcoming Encounters Date Type Department Care Team ([facility] st Contact Info) Description 08/24/2025 2:20 PM EST Office Visit [facility] [place] [address], [address] [place] [address] Galo Leung MD [address] [place] [address] documented as of this encounter Visit Diagnoses [...] documented as of this encounter Care Teams Mortuary Operations Manager Relationship Specialty Start Date End Date Sandro Sebastian MD [address] [place] [address] PCP - General 01/27/21 documented as of this encounter
--- OUTSIDE RECORDS SUMMARY | 2025-08-10 15:26 | XMS_ITS | Clinical Summary ---
Author Organization [facility] Address [address] [place] [address] Care Team Providers Care Network Desktop Support Specialist Name Role Phone Sandro Sebastian MD Primary Care Provider [phone] Allergies Active Allergy Reactions Criticality Noted Date [...] meals Email sugars weekly / message via [employer] She will begin testing sugars fasting and 2 hours after meals and will fax blood sugars weekly to [email or web address]. We will plan to see her back in 3- 4 weeks, or sooner if problems or questions. Thank you for this referral and please do not hesitate to call for any problems or questions. intermediate management with help with weight loss pp [...] her previous IUFD. She followed with a security monitor at that time. She reports an echo done in November of this year that was normal. Most literature regarding cardiomyopathy during or recently has not included stress-induced cardiomyopathy. Literature related to cardiomyopathy she has increased maternal risk if there is not recovery of ejection fraction. Given her normal echo patient is at decreased risk. Encourage patient to follow-up with security monitor and would likely need an echo early [...] weeks gestation of 06/30/2019 07/02/2019 06/23/2019 04/06/2021 Immunizations Immunization Administration Dates Next Due Influenza, [...] drink = 0.6 oz pur e alcohol) [facility] Utilities Answer Date Recorded In the past 12 months has [employer], gas, oil, or water ROI land investment threatened to shut off services in your [...] and heating? Not hard at all 11/20/2023 [facility] - Occupational Stress Questionnaire Answer Date [...] things needed for daily living? No 11/20/2023 [place] Depression Scale Answer Date Recorded [place] Depression Scale Total 20 12/04/2023 The thought of harming myself has occurred to me . Unrecognized value 12/04/2023 Abuse Screen Answer Date Recorded [...] GED or equivalent No 11/20/2023 Preferred Language Tamazight 11/20/2023 PHQ-2 Answer Date Recorded Retired PHQ-9: [...] (1 - Tdap) 12/20/2006 ANNUAL PHYSICAL 01/07/2019 INFLUENZA VACCINE 04/16/2025 07/02/2018, 07/12/2016 HEPATITIS C SCREENING Completed 03/30/2025 , 03/30/2025, 06/04/2023, Additional history exists Pneumococcal Vaccine 0-49 Aged Out No longer eligible based on patient's age to complete this topic Medical Devices Implanted Type Area Edging Machine Feeder Device Identifier Shelf Expiration Date Model / Serial / Lot Implant Implant Mouth Procedures Procedure Name Priority Date/Time Associated Diagnosis Comments HEPATITIS C ANTIBODY Routine 06/04/2023 1:54 PM EDT , unspecified gestational age 12 weeks gestation of from Last 3 Months or Most Recently Relevant to Health Maintenance Results * Hepatitis C Antibody (06/04/2023 1:54 PM EDT) Hepatitis C Ab Non-Reacti ve Non-Reacti ve 06/05/2023 1:47 AM EDT [facility] Blood Venipuncture / Unknown 06/04/2023 1:54 PM EDT 06/04/2023 1:56 PM EDT Narrative [facility] - 06/05/2023 1:47 AM EDT Results may be falsely decreased if patient taking Biotin. Ar[facility] BLOOD ORDERABLES Final Re sult [facility]
[address] [place] [address], from Last 3 Months or Most Recently Relevant to Health Maintenance [place] [address] [address] [address] PPO Member Subscriber Plan / Payer (Ef fective 2024-Present) Name:Alysa Mancini Relation to Subscriber:Self Name:Alysa Mancini Payer ID:[id number] (NAIC) Type:Not on file Address: [facility] [id number] [place] [id number] Advance Directives * CPR (Attempt to Resuscitate) [...] pulse or is breathing): Full Care Teams Network Desktop Support Specialist Relationship Specialty Start Date End Date Sandro Sebastian MD [address] [place] [address] PCP - General Family Medicine 06/23/19
--- OUTSIDE RECORDS SUMMARY | 2025-08-10 15:26 | XMS_ITS | Patient Health Record ---
Author Organization [facility] Address [address] [place] [address] Care Team Providers Care Advertising Solicitor Name Role Phone Chiqui Gibson Unavailable [phone] ChristianaTesha blake Unavailable [phone] Aramis Felix Unavailable [phone] Shanda Carranza Unavailable [phone] Marisela Avery Unavailable [phone] Maida Reno Unavailable [phone] Allergies Allergen (clinical drug ingredient) Drug/Non Drug Allergy documented on EMR Reaction Allergy Type Onset Date Status PENICILLIN V POTASSI UM (PENICILLIN V POTASSIUM TAB rash Drug Allergy 06/06/2011 Active Results Component Value Reference Range Notes *US Pelvis Complete Transabd ominal/Vaginal (Non-OB) Reviewed date:06/13/2025 07:18:24 PM Interpretation: Performing Lab: Notes/Report: [facility] Transvaginal Pelvic Study Report Name: ALYSA M JENA Accession/Encounter No:[id number] Procedure/Order ID: [id number] : 1985 Age: 39 Gender: F Study Date: Jun 09, 2025 Study Time: 11:41 AM Reading Group: Tesha Card MD Referring Group: Aramis Felix CNM Ordering Phys: Aramis Felix CNM Technical Support Manager: Louise Coleman RDMS Equipment: Affiniti 30 Study [...] ALYSA MANCINI 2025-06-09 Page 1 of 1 Imaging Center - , [facility] [address] Pap w/reflex HPV Reviewed date:04/30/2025 09:33:30 AM Interpretation:Normal Performing Lab:[facility] - [place] CLIA ID [id number], [address], [address], [place] [address], Director - Vikash Sanchez MD Notes/Report: Any Nucleic Acid Amplification testing is performed on the [employer]. Diagnosis: Negative for intraepithelial lesion or malignancy. AP results LMP: . Screening note: This specimen has been analyzed by the ThinPrep Imaging System, an interactive computer system which assists the lab in screening of ThinPrep Pap Test slides. Following imaging, the slide was reviewed by a Insecticide Expert and/or Pathologist. Results of Last Pap: Not provided Collection Technique: Not provided Tiffany Torres for interpretation with endocervical/transformat ion zone component absent. Pertinent Clinical History/History of Surgery: Not provided Negative Educational Note: The pap screening test aids in the detection of premalignant and malignant states of the cervix. False positive and negative results may occur. It is not a diagnostic test. If abnormal cells are reported, follow-up based on current clinical guidelines and/or clinical consideration is recommended. ICD Codes: Z01.419 Other Gynecological Patient Information: Not provided Specimen Source: Cervical/Endocervical Negative for intraepithelial lesion or malignancy. Date of Last Pap: Not provided FINAL SUBSTATION OPERATOR AUTOMATIC CYTOLOGY REPORT Insecticide Expert Recommendation: Follow-up based on current clinical guidelines and/or clinical consideration. Specimen Type: ThinPrep CPT Codes: 54662 Specimen Adequacy: DIAGNOSIS: Urine Dip - Analyzer Read Reviewed date:06/09/2025 07:19:02 PM Interpretation:2000 glucose Performing Lab: Notes/Report: Urine Reviewed date:06/09/2025 07:19:02 PM Interpretation:Negative Performing Lab: Notes/Report: TSH RFX ON ABNORMAL TO FREE T4 Reviewed date:04/22/2025 07:44:53 AM Interpretation:Normal Performing Lab: Notes/Report: THYROID STIMULATING HORMONE (TSH) UIU/ML 1.400 0.270-4.20 uIU/mL Lab specimens recei popeye at a [facility].?See result details for the performing location information. [...] 52.0 Lab specimen s received at a [facility].?See result details for the performing location information. FOLLICLE STIMULATING HORMONE Reviewed date:04/22/2025 07:44:53 AM Interpretation:Normal Performing Lab: Notes/Report: FSH Reference Ranges: Adult Males: 1.5-12.4 mIU/mL Adult Females: Folicular Phase ?3.5-12.5 mIU/ml Ovulation Phase ?4.7-21.5 mIU/ml Lutal Phase ? ? ?1.7-7.7 mIU/ml Postmenopausal ? 25.8-134.8 mIU/ml FOLLICLE STIMULATING HORMONE 12.70 Lab specimens receiv ed at a [facility].?See result details for the performing location information. PROLACTIN Reviewed date:04/22/2025 07:44:53 AM Interpretation:Normal Performing Lab: Notes/Report: Results may be falsely decreased if patient taking Biotin. PROLACTIN 21.70 4.79-23.30 ng/mL Lab specime ns received at a [facility].?See result details for the performing location information. Reason For Referral No Information Medications Medication SIG (Take, Route, Frequency, Duration) Notes Start Date End Date Status Jardiance Active Loratadine 10mg Active MiraLax Active Glycopyrrolate PF 2mg QID Ac tive hydrOXYzine HCl 50mg TID Acti ve BuSpar 30mg BID Active Gabapentin 100mg BID Active Vitamin D 125mcg daily Not-Mark ing/KS N Auvelity 45-105mg 1tab BID Active Omeprazole 40mg daily Active Prucalopride Succinate Active traZODone HCl 50mg tab daily Active Metamucil Active LORazepam 1 tab TID Active Nadolol Active Slynd 4 MG Tablet 1 tablet Orally Once a day; Duration: 90 days 06/09/2025 Active Social History Sex Assigned At : [...] Problem Status W/U Status Risk Notes Problem Amenorrhea (48305387) Amenorrhea, secondary (N91.1) Active confirmed Problem Cervical high risk HPV (human papillomavirus) test positive (017886455) Cervical high risk HPV (human papillomavirus) test positive (R87.810) Active confirmed Problem Secondary oligomenorrhea (83148820) Secondary oligomenorrhea (N91.4) Active confirmed Problem Pain in female genitalia on intercourse (21998268) Dyspareunia, female (N94.10) Active confirmed Vital Signs Heart Rate 76 /min 06/09/2025 Respiratory Rate 18 /min 06/09/2025 Oximetry 100 % 06/09/2025 Blood pressure diastolic 64 mm Hg 06/09/2025 Height 64 in 06/09/2025 Blood pressure systolic 118 mm Hg 06/09/2025 Weight 125 lbs 06/09/2025 BMI 21.45 kg/m2 06/09/2025 Encounters Encounter Location Date Provider Diagnosis [facility] [address] [facility] [address] [place] [phone] 05/31/2025 Iniko Isidro [facility] [address] [facility] [address] [place] [phone] 06/09/2025 Iniko Isidro Dysuria R30.0 ; Amenorrhea, secondary N91.1 ; Recent weight loss R63.4 ; Encounter for initial prescription of contraceptive pills Z30.011 ; Other fatigue R53.83 ; Hair loss L65.9 ; Dyspareunia, female N94.10 and Urine test negative Z32.02 [facility] [address] [facility] [address] [place] [address] 04/21/2025 Tesha Card Glove Examiner exam without abnormal findings Z01.419 and Secondary oligomenorrhea N91.4 [facility] [address] [facility] [address] [place] [phone] 06/09/2025 Iniko Isidro Amenorrhea, secondar y N91.1 Assessments Encounter Date Diagnosis (ICD Code) Assessment Notes Treatment Notes Treatment Clinical Notes Section Notes 04/21/2025 Glove Examiner exam without abnormal findings (ICD-10 - Z01.419) 04/21/2025 Secondary oligomenorrhea (ICD-10 - N91.4) 06/09/2025 Dysuria (ICD-10 - R30.0) - UA negative for UTI, shows glucose - Plan HgbA1c lab 06/09/2025 Amenorrhea, secondary (ICD-10 - N91.1) - US today shows uterus and ovaries appear normal. No free fluid or adnexal masses noted. Em thickness: 4.2mm. - Discussed normal findings on US - UPT: negative - Discussed differential diagnosis, PCOS or other endocrine cause of anovulation such as thyroid disease, hypothalamic amenorrhea from exercise / low BMI, less likely premature ovarian failure. - Bloodwork ordered - Total time spent caring for the patient today 45 minutes. This includes time spent before the visit reviewing the chart, time spent during the visit, time spent after the visit on documentation, and does not include procedure or preventative care time. 06/09/2025 Amenorrhea, secondary (ICD-10 - N91.1) 06/09/2025 Recent weight loss (ICD-10 - R63.4) 06/09/2025 Encounter for initial prescription of contraceptive pills (ICD-10 - Z30.011) - We reviewed progesterone only options for contraception given multipharmacy and cardiac history including oral contraceptive pills, depo and LARC methods including IUDs (both hormonal and non-hormonal) and subdermal implant. The risks, benefits, efficacy and common side effect profile of each of these methods were reviewed. We discussed her goals and priorities related to prevention and her desires for future fertility. After counseling, the patient would like to proceed with POP. Sample pack of Slynd discussed and given. Rx sent. Discussed importance of taking pill at the same time daily without missing pills. The patient's medical, surgical, family and social history were reviewed without any contraindications identified to the chosen method of contraception. 06/09/2025 Other fatigue (ICD-10 - R53.83) 06/09/2025 Hair loss (ICD-10 - L65.9) - Labs drawn 06/09/2025 Dyspareunia, female (ICD-10 - N94.10) - Address in [facility] 06/09/2025 Urine test negative (ICD-10 - Z32.02) Plan Of Treatment Pending Test Test Name Order Date 17 Hydroxyprogesterone 06/09/2025 Anti-Mullerian Hormone (AMH) 06/09/2025 B12 06/09/2025 CBC w / Diff 06/09/2025 DHEA-S 06/09/2025 Estradiol 06/09/2025 FSH 06/09/2025 HCG, quantitative 06/09/2025 Hemoglobin A1C 06/09/2025 Hepatic Function Panel 06/09/2025 LH 06/09/2025 Lipid Panel w/ Total Cholesterol:HDL Rat io 06/09/2025 Progesterone 06/09/2025 Prolactin 06/09/2025 Testosterone, Free & Total 06/09/2025 TSH reflex to FT4 if abnormal 06/09/2025 Vitamin D; 25 Hydroxy 06/09/2025 Next Appt Details Provider Name:Aramis Felix, 04/26/2026 02:15:00 PM, [address] [facility] [address], [place], [address], Insurance Providers Payer Name Payer Address Payer Phone Subscriber Number Group Number Insured Name Patient Relationship to Insured Coverage Start Date Coverage End Date Jaclyn [facility] [address] [place] [address] [id number] Alysa Mancini Self - patient is the insured Medical (General) History Medical History History ICD Code HPV / ASCUS Acid Reflux Anxiety Bowel Problems Depression Hypertension Stomach Problems Urinary Tract Infections IUFD Takotsubo cardiomyopathy Gestational diabetes Alcoholism Obesity with massive weight loss Surgical History Surgery Date(Month/Year) LEEP 2016 Multiple Lithotripsy T&A [place] Teeth Extraction Lt Breast Lumpectomy umbilical hernia repair oral surgery teeth revision pacemaker and defibrillator placed Midurethral sling Hospitalization History Reason Date(Month/Year) L&D - x3 T&A
--- OUTSIDE RECORDS SUMMARY | 2025-08-10 15:26 | XMS_ITS | Clinical Summary ---
Author Organization [facility] Address [address] [facility] [address] [place] [address] Care Team Providers Care Developmental Education Instructor Name Role Phone Unavailable Primary Care Provider [...] 19+ 3-dose series) 12/20/2006 Pap Smear 12/20/2008 HPV Vaccines (1 - 3-dose SCD M series) 12/20/2014 Cervical Cancer Screening 12/20/2017 HPV/Cotest 12/20/2017 Depression Risk Screening 09/16/2024 SDOH Screening 09/16/2024 COVID-19 Vaccine (1 - 2024-2 6 season) 2025 Influenza Vaccine (#1) 2025 Zoster Vaccines (1 [...]
--- OUTSIDE RECORDS SUMMARY | 2025-08-10 15:26 | XMS_ITS | Clinical Summary ---
Author Organization [facility] Address [address] [place] [address] Care Team Providers Care Technical Services Assistant Name Role Phone Sandro Sebastian MD Primary Care Provider [phone] Allergies Active Allergy Reactions Criticality Noted Date [...] Encounters Date Type Department Care Team Description 06/08/2025 Telephone [facility] [place] [address] [facility] [facility], [address] [place] [address] Galo Leung MD HCN Clinical Concern/Question 06/03/2025 3:27 PM EDT - 06/03/2025 11:59 PM EDT Hospital Encounter Medical Office Building Cardiac Diagnostic Testing Medical Office Building Echo Lab [address] [facility], [address] [place] [address] Chronic combined systolic and diastolic heart failure (CMS/HCC) Discharge Disposition: Home or Self Care 06/03/2025 Travel from Last 3 Months Immunizations Immunization [...] Sign Reading Time Taken Comments Blood Pressure 102/67 06/03/2025 4:11 PM EDT Pulse 82 06/03/2025 4:11 PM EDT Temperature 36.6 C (97.8 F) 03/31/2025 [...] Upcoming Encounters Date Type Department Care Team ([facility] st Contact Info) Description 08/24/2025 2:20 PM EST Office Visit [facility] [place] [address] [facility], [address] [place] [address] Galo Leung MD [address] [place] [address] Health Maintenance Due Date Last Done Comments [facility]-/Child/Adol SDOH Screenings 1985 [facility]-Varicella Vaccines (1 of [...] [facility]-Cervical Cancer Screening 12/20/2017 [facility]-HPV/Cotest 12/20/2017 05/29/2006 [id number] Vaccine (3 - Moderna risk series) 10/14/2021 [...] Procedure Name Priority Date/Time Associated Diagnosis Comments ECHO, ADULT TRANSTHORACIC COMPLETE Routine 06/03/2025 4:11 PM EDT Chronic combined systolic and diastolic heart failure (CMS/HCC) HIV 1/2 ANTIBODY/ANTIGEN SCREEN WITH REFLEX TO HIV I/II DIFFERENTIATION STAT 03/30/2025 9:05 PM EDT CYTO DATA CONVERSION Routine 05/29/2006 12:00 AM EDT from Last 3 Months or Most Recently Relevant to Health Maintenance Results * ECHO, ADULT TRANSTHORACIC COMPLETE (06/03/2025 4:11 PM EDT) LVIDd 43 mm WINSOME ISCV LVIDs 34 mm WINSOME ISCV IVSd 8 mm WINSOME ISCV LVPWd 8 mm WINSOME ISCV LV MASS(C)D 105 g WINSOME ISCV LV RWT 0.37 mm WINSOME ISCV TR Vmax 216.0 cm/s WINSOME ISCV LAV(MOD-4ch) 30 mL WINSOME ISCV LAV(MOD-2ch) 34 mL WINSOME ISCV RV base 28 mm WINSOME ISCV RV Mid 24 mm WINSOME ISCV RV s' Conrad 9.2 cm/s WINSOME ISCV TR Max PG 19 mmHG WINSOME ISCV RVSP 27 mmHg WINSOME ISCV RAP systole 8 mmHg WINSOME ISCV RA MOD 4Ch 19 mL WINSOME ISCV Ao Root Diam 30 mm WINSOME ISCV Asc Ao Diam 30 mm WINSOME ISCV MV E Vmax 61.0 cm/s WINSOME ISCV MV A Vmax 55.0 cm/s WINSOME ISCV MV E/A 1.1 cm/s WINSOME ISCV LV Lat e' Velocity 10.5 cm/s WINSOME ISCV LV Sept e' Conrad 7.2 cm/s WINSOME ISCV Lat E/e' 5.8 WINSOME ISCV Sep E/e' 8.5 WINSOME ISCV Avg E/e' 7.1 WINSOME ISCV Anatomical Region Laterality Modality Echocardiography Narrative 06/03/2025 4:43 PM EDT Left Ventricle: The left ventricular systolic function is moderately reduced. The LVEF is visually estimated at 40 - 45%. The diastolic function is abnormal. There is grade I (mild) diastolic dysfunction. The left ventricular filling pressure is normal. Right Ventricle: The right ventricular systolic function is normal. The estimated right ventricular systolic pressure is 27 mmHg. Right ventricular systolic pressure is normal (<35mmHg). All cardiac valves were reasonably well interrogated with 2D imaging and/or Doppler assessment and no significant valve regurgitation or stenosis is seen. Pericardium: No pericardial effusion. There is no recent study available for direct [id number] comparison. Left Ventricle Based on the linear dimension and/or 2D volumes, the left ventricle is normal in size. There is normal left ventricular myocardial thickness and mass. The left ventricular systolic function is moderately reduced. The LVEF is visually estimated at 40 - 45%. The diastolic function is abnormal. There is grade I (mild) diastolic dysfunction. The left ventricular filling pressure is normal. The left ventricular wall motion is normal. Right Ventricle The right ventricle is normal in size. A catheter/lead is present in the right ventricle. The right ventricular systolic function is normal. The estimated right ventricular systolic pressure is 27 mmHg. Right ventricular systolic pressure is normal (<35mmHg). Left Atrium The left atrial size is normal. The interatrial septum is intact with no evidence for an atrial septal defect. Right Atrium The right atrial size is normal. IVC/SVC The IVC was not well visualized, and an assumed pressure of 8mmHg was used for calculations. Mitral Valve The mitral valve leaflets are normal in appearance with no evidence of mitral valve prolapse. There is trace mitral regurgitation. There is no mitral stenosis. Tricuspid Valve The tricuspid valve is normal in appearance. There is mild tricuspid regurgitation. There is no tricuspid stenosis. Aortic Valve The aortic valve appears to be trileaflet. There is no valvular regurgitation. There is no hemodynamically significant valvular aortic stenosis. Pulmonic Valve The pulmonic valve is normal in appearance. There is no pulmonic regurgitation. There is no pulmonic stenosis. Pericardium No pericardial effusion. Great Vessels The aortic root is normal in size. The sinus of Valsalva (aortic root) diameter is 30 mm by leading edge to leading edge method. In the maximally visualized portion, the ascending aorta appears normal in size. The ascending aorta diameter is 30 mm. The main pulmonary artery is not well visualized. Extracardiac There is no pleural effusion. Study Details A complete transthoracic echocardiogram using two-dimensional (2D), m-mode, color and spectral flow Doppler imaging was performed. During the study the apical, parasternal, subcostal and suprasternal view was captured. Overall the study quality was adequate. Heart rate was normal. The heart rhythm during this exam was most suggestive of a sinus rhythm. Study Recommendation All cardiac valves were reasonably well interrogated with 2D imaging and/or Doppler assessment and no significant valve regurgitation or stenosis is seen. There is no recent study available for direct [id number] comparison. us Galo Leung MD CV ECHO PROCEDURES Final Resul t * HIV 1 & 2 Antibody/Antigen Screen (03/30/2025 9:05 PM EDT) HIV 1 & 2 Antibody/Antigen Screen Non Reactive Non Reactive 03/30/2025 9:05 PM EDT [facility] Comment:Screening for HIV 1 & 2 antibodies, and P24 antigen is NONREACTIVE. No confirmatory testing is required. Blood Venous blood specimen / Unknown 03/30/2025 6:27 PM EDT us Osmel Medina MD LAB BLOOD ORDERABLES Final Re sult [facility] [address] [place] [address] * Cytology (05/29/2006 12:00 AM EDT) 05/29/2006 05/30/2006 11: 55 AM EDT Narrative SUNQUEST - 05/31/2006 1:59 PM EDT [facility] MR #: [facility] [place], [place] [address] 1985 (Age: 20) FW Collect Date: 05/29/2006 00:00 Receipt Date: 05/30/2006 11:55 Page 1 DEPARTMENT OF PATHOLOGY AND LABORATORY MEDICINE CYTOPATHOLOGY REPORT Email: [email or web address] ATTENDING MD/Practitioner: Oliver Hernandez MD Service: PADDED PRODUCTS FINISHER Location: S Reported: 05/31/2006 13:59 Collected: 05/29/2006 00:00 INTERPRETATION [...] results is suggested (please call Microbiology at [phone] for results). CLINICAL INFORMATION: Menstrual History: Cyclic Date of Last Menstrual Period: 05/17/06 Contraceptive History: control pills Other Clinical Conditions: Clinical information indicates patient has high risk factor(s). SPECIMEN DESCRIPTION: A: THIN PREP (CERVICAL/VAGINAL) THIN PREP PROCESS CELLULAR ENHANCEMENT ICD: V76.2 CERVIX, SPECIAL SCREENING FOR MALIGNANT NEOPLASM V15.89 OTHER PERSONAL HISTORY PRESENT HAZARDS TO HEALTH F: A; [address] [facility] SNOMED CODES: A; [id number] In cases where a pathologist has signed out the report, the service has been rendered in part by a resident. The signing pathologist has performed and is responsible for the reported pathologic evaluation. Historical Provider LAB PATHOLOGY ORDERABLES Fin al Result SUNQUEST from Last 3 Months or Most Recently Relevant to Health Maintenance Insurance ANTH Care Teams Technical Services Assistant Relationship Specialty Start Date End Date Sandro Sebastian MD [address] [place] [address] PCP - General 01/27/21
--- OUTSIDE RECORDS SUMMARY | 2025-08-10 15:26 | XMS_ITS | Encounter Summary ---
Author Organization [facility] Address [address] [place] [address] Care Team Providers Care Storyboard Artist Name Role Phone Sandro Sebastian MD Primary Care Provider [phone] Encounter Details Date Type Department Care Team (Late Contact Info) Description 11/22/2023 Lab Requisition [facility] [address] [place] [address] Aramis Felix APRN, [facility] [address] Encounter for general adult medical examination without [...] Upcoming Encounters Date Type Department Care Team ([facility] Contact Info) Description 08/24/2025 2:20 PM EST Office Visit [facility] [place] [address] [facility] [place] [address] Galo Leung MD [address] [place] [phone] documented as of this encounter Procedures Procedure Name Priority Date/Time Associated Diagnosis Comments BENZODIAZEPINE, URINE, QUANTITATIVE STAT 11/21/2023 2:30 PM EST Encounter for general adult medical examination without abnormal findings documented in this encounter Results * (ABNORMAL) Benzodiazepine, urine, quantitative (11/21/2023 2:30 PM EST) [facility] [place] Alprazolam <20 <20 ng/mL 11/22 7:07 PM EST [facility] [place] Midazolam <20 <20 ng/mL 2023 7:07 PM EST [facility] [place] Triazolam <20 <20 ng/mL 2023 7:07 PM EST [facility] Alprazolam <10 <10 ng/mL 11/23/2023 7:07 PM EST [facility] Aminoclonazepam <20 <20 ng/mL 7:07 PM EST [facility] Clonazepam <10 <10 ng/mL 11/23/2023 7:07 PM EST [facility] Diazepam <10 <10 ng/mL 11/23/2023 7:07 PM EST [facility] Lorazepam <20 <20 ng/mL 11/23/2023 7:07 PM EST [facility] Lorazepam Glucuronide >1,000(H) <50 ng/mL 11/23/2023 7:07 PM EST [facility] Midazolam 11/23/2023 7:07 PM EST [facility] Nordiazepam <20 <20 ng/mL 11/23/2023 7:07 PM EST [facility] Oxazepam <20 <20 ng/mL 11/23/2023 7:07 PM EST [facility] Oxazepam Glucuronide <50 <50 ng/mL 11/23/2023 7:07 PM EST [facility] Temazepam <20 <20 ng/mL 11/23/2023 7:07 PM EST [facility] Temazepam Glucuronide <50 <50 ng/mL 11/23/2023 7:07 PM EST [facility] Triazolam 11/23/2023 7:07 PM EST [facility] Urine Urine specimen obtained by clean catch procedure / Unknown 11/21/2023 2:30 PM EST 11/22/2023 9:32 AM EST Narrative [facility] - 11/23/2023 7:07 PM EST Drug analysis is confirmed by LC-MS/MS (LC Tandem Mass Spectrometry) on Urine specimens. This test was developed and its performance characteristics determined by [facility]. It has not been cleared or approved by the FDA. The laboratory is regulated under CLIA as qualified to perform high-complexity testing. This test is used for clinical purposes. Testing is performed at the [facility], Special Chemistry Laboratory. Aramis Felix APRN, CNM LAB URINE ORDERABLES Stefanie l Result [facility] [address] [place] [address] documented in this encounter Visit Diagnoses Diagnosis Encounter for general adult medical examination without abnormal findings documented in this encounter Additional Health Concerns Assessment Noted Time PHQ-9 Depression Total Score: 24 023 12:42 PM EST documented as of this encounter Care Teams Storyboard Artist Relationship Specialty Start Date End Date Sandro Sebastian MD [address] [place] [id number] PCP - General 01/27/21 documented as of this encounter
--- OUTSIDE RECORDS SUMMARY | 2025-08-10 15:27 | XMS_ITS | Encounter Summary ---
Author Organization [facility] Address [address] [place] [address] Care Team Providers Care Adobe Cq Developer Name Role Phone Sandro Sebastian MD Primary Care Provider [phone] Encounter Details Date Type Department Care Team (Late Contact Info) Description 05/26/2024 Orders Only External Location [address] [place] [address] Brendon Cunningham MD [address] [place] [address] Social History Tobacco Use Types Packs/Day Years [...] Description 08/24/2025 2:20 PM EST Office Visit [facility] [place] [address], [address] [place] [phone] Galo Leung MD [address] [place] [phone] documented as of this encounter Procedures Procedure Name Priority Date/Time Associated Diagnosis Comments IR OUTSIDE IMAGES 05/26/2024 7:20 AM EDT documented in this encounter Results * IR OUTSIDE IMAGES (05/26/2024 7:20 AM EDT) Anatomical Region Laterality Modality X-Ray Angiograph y 05/26/2024 7:20 AM EDT us Brendon Cunningham MD IMG IR PROCEDURES Final Result documented in this encounter Visit Diagnoses Not on filedocumented in this encounter Additional Health Concerns Assessment Noted Time PHQ-9 Depression Total Score: 24 023 12:42 PM EST documented as of this encounter Care Teams Adobe Cq Developer Relationship Specialty Start Date End Date Sandro Sebastian MD [address] [place] [address] PCP - General 01/27/21 documented as of this encounter
--- OUTSIDE RECORDS SUMMARY | 2025-08-10 15:27 | XMS_ITS | Encounter Summary ---
Author Organization [facility] Address [address] [place] [address] Care Team Providers Care Grade Setter Name Role Phone Sandro Sebastian MD Primary Care Provider [phone] Encounter Details Date Type Department Care Team (Late Contact Info) Description 03/30/2021 Lab Requisition [facility] [address] [place] [address] Brian Galvez MD [address] [place] [phone] Encounter for general adult medical examination without [...] Description 08/24/2025 2:20 PM EST Office Visit [facility] [place] [address] [facility], [address] [place] [phone] Galo Leung MD [address] [place] [phone] documented as of this encounter Procedures Procedure Name Priority Date/Time Associated Diagnosis Comments AMPHETAMINES LCMSMS URINE Routine 03/29/2021 8:27 PM EDT Encounter for general adult medical examination without abnormal findings documented in this encounter Results * (ABNORMAL) Amphetamine Urine Confirm LCMSMS (03/29/2021 8:27 PM EDT) Amphetamine >1,000(H) <50 ng/mL 03/31/2021 10:31 AM EDT [facility] Methamphetamine <50 <50 ng/mL 10:31 AM EDT [facility] MDA <50 <50 ng/mL 03/31/2021 10:31 AM EDT [facility] MDMA <50 <50 ng/mL 03/31/2021 10:31 AM EDT [facility] Urine Urine specimen obtained by clean catch procedure / Unknown 03/29/2021 8:27 PM EDT 03/30/2021 1:07 AM EDT Narrative [facility] - 03/31/2021 10:31 AM EDT Drug analysis is confirmed by LC-MS/MS (LC Tandem Mass Spectrometry) on Urine specimens. This test was developed and its performance characteristics determined by [facility]. It has not been cleared or approved by the FDA. The laboratory is regulated under CLIA as qualified to perform high-complexity testing. This test is used for clinical purposes. Testing is performed at the [facility], [facility] Laboratory. us Brian Galvez MD LAB URINE ORDERABLES Final R esult [facility] [address] [place] [address] documented in this encounter Visit Diagnoses Diagnosis Encounter for general adult medical examination without abnormal findings documented in this encounter Care Teams Grade Setter Relationship Specialty Start Date End Date Sandro Sebastian MD [facility] [place] [address] PCP - General 01/27/21 documented as of this encounter
--- OUTSIDE RECORDS SUMMARY | 2025-08-10 15:27 | XMS_ITS | Encounter Summary ---
Author Organization [facility] Address [address] [place] [address] Care Team Providers Care Willow Analyst Name Role Phone Sandro Sebastian MD Primary Care Provider [phone] Encounter Details Date Type Department Care Team (Late Contact Info) Description 04/06/2021 Lab Requisition [facility] [address] [place] [address] Braxton Ballesteros MD [address] [facility] [address] [place], [place] [phone] Encounter for general adult medical examination without [...] Description 08/24/2025 2:20 PM EST Office Visit [facility] [place] [address] [facility], [address] [place] [address] Galo Leung MD [address] [place] [phone] documented as of this encounter Procedures Procedure Name Priority Date/Time Associated Diagnosis Comments AMPHETAMINES LCMSMS URINE Routine 04/06/2021 2:07 AM EDT Encounter for general adult medical examination without abnormal findings documented in this encounter Results * (ABNORMAL) Amphetamine Urine Confirm LCMSMS (04/06/2021 2:07 AM EDT) Amphetamine >1,000(H) <50 ng/mL 04/08/2021 4:56 PM EDT [facility] Methamphetamine <50 <50 ng/mL 4:56 PM EDT HEALTHCARE LAB MDA <50 <50 ng/mL 04/08/2021 4:56 PM EDT HEALTHCARE LAB MDMA <50 <50 ng/mL 04/08/2021 4:56 PM EDT [facility] Urine Urine specimen obtained by clean catch procedure / Unknown 04/06/2021 2:07 AM EDT 04/06/2021 10:10 AM EDT Narrative [facility] - 04/08/2021 4:56 PM EDT Drug analysis is confirmed by LC-MS/MS (LC Tandem Mass Spectrometry) on Urine specimens. This test was developed and its performance characteristics determined by [facility]. It has not been cleared or approved by the FDA. The laboratory is regulated under CLIA as qualified to perform high-complexity testing. This test is used for clinical purposes. Testing is performed at the [facility]. us Braxton Ballesteros MD LAB URINE ORDERABLES Final Res ult [facility] [address] [place] [address] documented in this encounter Visit Diagnoses Diagnosis Encounter for general adult medical examination without abnormal findings documented in this encounter Care Teams Willow Analyst Relationship Specialty Start Date End Date Sandro Sebastian MD [facility] [place] [address] PCP - General 01/27/21 documented as of this encounter
--- OUTSIDE RECORDS SUMMARY | 2025-08-10 15:27 | XMS_ITS | Referral Summary ---
Author Organization [facility] ([place], [place], [place], [place], [place]) Address [address] [place] [address] Care Team Providers Care Fretted String Instrument Repairer Name Role Phone Sandro Sebastian Primary Care [...] Date Sal rded Speak language other than Israeli at home Not on file 10/04/2023 Want [...] Advance Directives For more information, please contact: [phone] * Full Code (Latest Code Status on File) Date Activated Date Inactivated Comments 12/12/2022 6:00 AM 12/12/2022 9:56 AM -Attempt Res uscitation if person has no pulse and is not breathing. -If no pulse or not breathing attempt CPR/CODE. -Call Rapid Response if patient is in distress. Care Teams Fretted String Instrument Repairer Relationship Specialty Start Date End Date Sandro Sebastian [address] [place] [address] PCP - General 11/01/22
--- OUTSIDE RECORDS SUMMARY | 2025-08-10 15:27 | XMS_ITS | Encounter Summary ---
Author Organization [facility] Address [address] [place] [address] Care Team Providers Care Pyrometer Operator Name Role Phone Sandro Sebastian MD Primary Care Provider Encounter Details Date Type Department Care Team (Late Contact Info) Description 04/06/2021 Lab Requisition [facility] [address] [place] [address] Braxton Ballesteros MD [address] [facility] [address] [place], [place] [phone] Encounter for general adult medical examination without [...] Description 08/24/2025 2:20 PM EST Office Visit [facility] [place] [address] [facility], [address] [place] [address] Galo Leung MD [address] [place] [phone] documented as of this encounter Visit Diagnoses Diagnosis Encounter for general adult medical examination without abnormal findings documented in this encounter Care Teams Pyrometer Operator Relationship Specialty Start Date End Date Sandro Sebastian MD [address] [place] [address] PCP - General 01/27/21 documented as of this encounter
--- OUTSIDE RECORDS SUMMARY | 2025-08-10 15:27 | XMS_ITS | Clinical Summary ---
Author Organization [facility] ([place], [place], [place], [place], [place]) Address [address] [place] [address] Care Team Providers Care Gimp Buttonhole Machine Operator Name Role Phone Sandro Sebastian Primary [...] Date Sal rded Speak language other than Guinean at home Not on file 10/04/2023 Want [...] (12+) 12/13/2023 12/12/2022 COVID-19 VACCINE (3 - 2024- season) 2025, 08/07/2021 Influenza Vaccine (#1) 2025 Insurance BLUE CROSS/BLUE SHIELD Advance Directives For more information, please contact: [phone] * Full Code (Latest Code Status on File) Date Activated Date Inactivated Comments 12/12/2022 6:00 AM 12/12/2022 9:56 AM -Attempt Res uscitation if person has no pulse and is not breathing. -If no pulse or not breathing attempt CPR/CODE. -Call Rapid Response if patient is in distress. Care Teams Gimp Buttonhole Machine Operator Relationship Specialty Start Date End Date Sandro Sebastian [address] [place] [address] PCP - General 11/01/22
--- OUTSIDE RECORDS SUMMARY | 2025-08-10 15:28 | XMS_ITS | Encounter Summary ---
Author Organization [facility] ([place], [place], [place], [place], [place]) Address [address] [place] [address] Care Team Providers Care Costuming Supervisor Name Role Phone Sandro Sebastian Primary Care Provider Unavailabl e Encounter Details Date Type Department Care Team (Late st Contact Info) Description 03/29/2021 Transcribed Document [facility] Family Medicine [address] [place] [address] ProviderMahi MD [address] [place] [address] Social History Tobacco Use Types Packs/Day Years Used Date Smoking Tobacco: Never Assessed Comments Unknown Sex and Gender Information Value Date Recorded Sex Assigned at Not on file Legal Sex Female 6:06 PM CDT Gender Identity Not on file Sexual Orientation Not on file documented as of this encounter Miscellaneous Notes * Cerner Conversion Note - Historical ProviderMD - 03/29/2021 10:10 PM CDT Patient Education Materials Follows: documented in this encounter Plan of Treatment Not on file documented as of this encounter Visit Diagnoses Not on filedocumented in this encounter Care Teams Costuming Supervisor Relationship Specialty Start Date End Date Sandro Sebastian [address] [place] [address] PCP - General 11/01/22 documented as of this encounter
--- OUTSIDE RECORDS SUMMARY | 2025-08-10 15:28 | XMS_ITS | Data Portability ---
Author Organization [facility] Address [address] [place] [address] Assessment No assessment recorded. Plan of Treatment Reminders Order Date Submit Date Provider Last Modified By Organization Details Last Modified Time Details Appointments None recorded. Lab vaginal pathogens panel, SO+probe, vaginal fluid 2021 022 SHERIDAN [facility], [address], [address], [place], [address], 2 03:07:40 culture, urine 2021 022 SHERIDAN [facility], [address], [place] [address], [place], [address], 2 03:07:40 urinalysis , dipstick 2021 [facility], [address] [place] [address] , [place], [address], 2 15:49:31 Referral None recorded. Procedures None recorded. Surgeries None recorded. Imaging MAMMO, diagnostic , digital, bilateral 2021 022 [facility] (Scheduling), [address] [place], [address], 2 15:01:21 US, breast, bilateral 2021 023 [facility] (Scheduling), [address] [place], [address], 3 05:01:50 Medication Orders None recorded. Patient TargetsNo targets recorded. Patient Instructions Encounter Date Encounter Id Patient Instructions Last Modified By Organization Details Last Modified Time 04/16/2022 [id number] medical record request* - please send pts [employer] and Ob records Not available 05/28/2022 10:43:04 painful urinatio n (dysuria): care instructions clarita Not available 04/16/2022 17:48:35 Reason for Referral None Reported. Results Created Date Observation Date Name Description Value Unit Range Abnormal Flag Note LastModifiedBy Organization Detail LastModifiedTime 04/16/20 22 04/17/2022 NUA B VAGIN ITIS PLUS (VG+) atopobium vaginae Low - 0 score Not Available [facility] ([facility]) [address] [facility], [place], [address], 04/18/2022 03:07:39 04/16/20 22 04/17/2022 [facility] B VAGIN ITIS PLUS (VG+) bvab 2 Low - 0 score Not Available [facility] ([facility]) [address] [facility], [place], [address], 04/18/2022 03:07:39 04/16/20 22 04/17/2022 [facility] (VG+) megasphaera 1 Low - 0 score Calcu late total score by gayla g the 3 indiv idual bacte rial vagin osis (BV) marke r score s toget her. Total score is inter prete d as follo ws: Total score 0-1: Indic ates the absen ce of BV. Total score 2: Indet ermin ate for BV. Addit ional clini prasad data shoul d be evalu ated to estab shabnam a diagn osis. Total score 3-6: Indic ates the prese nce of BV. This test was devel oped and its perfo rmanc e mayo cteri stics deter mined by [facility]. It has not been clear ed or appro popeye by the Food and Drug Admin istra tion. Not Available [facility] ([facility]) [address] [facility], [place], [address], 04/18/2022 03:07:39 04/16/20 22 04/17/2022 NUSWA B VAGIN ITIS PLUS (VG+) shira albicans, SO Negati ve negati ve Not Available [facility] ([facility]) [address] [facility], [place], [address], 04/18/2022 03:07:39 04/16/20 22 04/17/2022 NUSWA B VAGIN ITIS PLUS (VG+) shira glabrata, SO Negati ve negati ve Not Available [facility] ([facility]) [address] [facility], [place], [address], 04/18/2022 03:07:39 04/16/20 22 04/18/2022 NUSWA B VAGIN ITIS PLUS (VG+) trich vag by SO Negati ve negati ve Not Available [facility] ([facility]) [address] [facility] [facility], [place], [address], 04/18/2022 03:07:39 04/16/20 22 04/18/2022 NUSWA B VAGIN ITIS PLUS (VG+) chlamydia trachomatis, SO Negati ve negati ve Not Available [facility] ([facility]) [address] [facility], [place], [address], 04/18/2022 03:07:39 04/16/20 22 04/18/2022 NUSWA B VAGIN ITIS PLUS (VG+) neisseria gonorrhoeae, SO Negati ve negati ve Not Available [facility] ([facility]) [address] [facility], [place], [address], 04/18/2022 03:07:39 04/16/20 22 04/17/2022 URINE CULTU RE, ROUTI NE urine culture, routine Final report Not Available [facility] ([facility]) [address] [place], [address], 04/18/2022 03:07:40 04/16/20 22 04/17/2022 URINE CULTU RE, ROUTI NE result 1 No growth Not Available [facility] ([facility]) [address] [facility], [place], [address], 04/18/2022 03:07:40 04/16/20 22 04/16/2022 urina lysis , dipst ick Leukocytes Negati ve Not Available [place] [facility] [address] [place] [address] , [place], [address], 04/16/2022 15:52:56 04/16/20 22 04/16/2022 urina lysis , dipst ick Nitrite negati ve Not Available [facility]/[address] , [place], [address], 04/16/2022 15:52:56 04/16/20 22 04/16/2022 urina lysis , dipst ick Urobilinogen 1 Not Available [facility] [address] [place] [address] , [place], [address], 04/16/2022 15:52:56 04/16/20 22 04/16/2022 urina lysis , dipst ick Protein Negati ve Not Available [facility] [address] [place] [address] , [place], [address], 04/16/2022 15:52:56 04/16/20 22 04/16/2022 urina lysis , dipst ick pH 7.0 Not Available [facility]/[address] , [place], [address], 04/16/2022 15:52:56 04/16/20 22 04/16/2022 urina lysis , dipst ick Blood Negati ve Not Available [facility] [address] [place] [address] , [place], [address], 04/16/2022 15:52:56 04/16/20 22 04/16/2022 urina lysis , dipst ick Specific [place] 1.010 Not Available [facility] [address] [place] [address] , [place], [address], 04/16/2022 15:52:56 04/16/20 22 04/16/2022 urina lysis , dipst ick Ketone Negati ve Not Available [place] [facility] [address] [place] [address] , [place], [address], 04/16/2022 15:52:56 04/16/20 22 04/16/2022 urina lysis , dipst ick Bilirubin Negati ve Not Available [facility] [address] [place] [address] , [place], [address], 04/16/2022 15:52:56 04/16/20 22 04/16/2022 urina lysis , dipst ick Glucose Negati ve Not Available [facility] [address] [place] [address] , [place], [address], 04/16/2022 15:52:56 04/16/20 22 04/16/2022 urina lysis , dipst ick Appearance Slight ly Cloudy Not Available [facility] [address] [place] [address] , [place], [address], 04/16/2022 15:52:56 04/16/20 22 04/16/2022 urina lysis , dipst ick Color Pale Yellow Not Available [place] [facility] [address] [place] [address] , [place], [address], 04/16/2022 15:52:56 05/04/20 22 05/03/2022 MAMMO , diagn ostic , digit al, bilat eral No observ ation record ed. [facility] (Radiology) [address] [place], [address], 05/08/2022 14:51:58 05/07/20 22 05/03/2022 , deloris rojas No observ ation record ed. [facility] (Radiology) [address] [place], [address], 05/08/2022 14:51:59 Result Notes None recorded. Problems No Known Problems Procedures Surgical History Date Name Laterality Status Provider Name and Address Organization Details Recorded Time Date of Last Pap Smear completed [facility] 10/10/2022 16:03:01 extraction of wisdom tooth completed [facility] 04/16/2022 15:00:12 Unlisted px dentalvlr strux completed [facility] 04/16/20 15:00:22 lumpectomy of breast completed [facility] 04/16/2022 15:00:35 kidney stone analysis completed [facility] 04/16/2022 15:00:47 Imaging Results None recorded. Procedure Notes None recorded. Medical Equipment None Reported. Allergies Allergen ID Allergen Name Allergen Category Reaction Reaction Severity Criticality Documentation Date Start Date Code Code System Note Provider Name and Address Organization Details Recorded Time 931248 Product containin g penicilli n (product) medicatio n hives mild low 04/16/2022 95597 8001 SNOMED [facility] 2 14:51:19 Medications Name Sig Start Date Stop Date Status Note LastModified by Organization Details LastModified Time quetiapine 25 mg tablet TAKE 1/2 TABLET AT 9 AM AND 2 PM FOR ANXIETY. DO NOT TAKE IF YOU ARE SLEEPY. 04/16 completed Not Available Not Available Not Available glycopyrrol ate 1 mg tablet TAKE 2 TABLETS BY MOUTH FOUR TIMES DAILY FOR SWEATING 04/16 completed Not Available Not Available Not Available lamotrigine 150 mg tablet TAKE 1 TABLET 1 TIME EACH DAY 04/16 completed Not Available Not Available Not Available oxcarbazepi ne 150 mg tablet TAKE 1 TABLET 1 TIME EACH DAY AT BEDTIME 04/16 completed Not Available Not Available Not Available venlafaxine ER 75 mg capsule,ext ended release 24 hr TAKE THREE CAPSULES EACH DAY 04/16 completed Not Available Not Available Not Available benztropine 0.5 mg tablet TAKE ONE TABLET BY MOUTH THREE TIMES DAILY FOR EPS/SWEAT ING 04/16 completed Not Available Not Available Not Available trazodone 50 mg tablet TAKE ONE TABLET BY MOUTH EVERY NIGHT AT BEDTIME NEEDED FOR INSOMNIA 04/16 completed Not Available Not Available Not Available hydrocodone 5 mg-acetamin ophen 325 mg tablet TAKE 1 TO 2 TABLETS EVERY 6 HOURS NEEDED FOR MODERATE PAIN 04/16 completed Not Available Not Available Not Available Claritin 10 mg tablet Take 1 tablet every day by oral route. active Not Available Not Available No t Available ondansetron HCl 4 mg tablet TAKE 1 TABLET EVERY 4 TO 6 HOURS NEEDED FOR NAUSEA 04/16 completed Not Available Not Available Not Available quetiapine 200 mg tablet TAKE 1 TABLET 1 TIME EACH DAY AT BEDTIME FOR DEPRESSIO N AND SLEEP 04/16 completed Not Available Not Available Not Available olanzapine 5 mg tablet TAKE 1 TO 2 TABLETS BY MOUTH EVERY NIGHT AT BEDTIME ANXIETY/M OOD 04/16 completed Not Available Not Available Not Available clindamycin HCl 150 mg capsule TAKE 1 CAPSULE 4 TIMES EACH DAY FOR 7 DAYS 04/16 completed Not Available Not Available Not Available hydroxyzine pamoate 50 mg capsule TAKE 1 CAPSULE BY MOUTH EVERY 8 HOURS NEEDED FOR ANXIETY 04/16 completed Not Available Not Available Not Available olanzapine 10 mg tablet TAKE ONE TABLET BY MOUTH EVERY NIGHT AT BEDTIME FOR MOOD 04/16 completed Not Available Not Available Not Available phentermine 37.5 mg tablet TAKE 1 TABLET 1 TIME EACH DAY 04/16 completed Not Available Not Available Not Available omeprazole 40 mg capsule,del ayed release TAKE 1 CAPSULE 1 TIME EACH DAY. 04/16 completed Not Available Not Available Not Available bupropion HCl SR 100 mg tablet,12 hr sustained-r elease TAKE 1 TABLET BY MOUTH EVERY MORNING FOR DEPRESSIO N 04/16 completed Not Available Not Available Not Available lamotrigine 25 mg tablet TAKE 1 TABLET 1 TIME EACH DAY FOR 14 DAYS. THEN, TAKE 2 TABLETS 1 TIME EACH DAY FOR 14 DAYS. STOP OXCARBAZI PINE. 04/16 completed Not Available Not Available Not Available oxycodone-a cetaminophe n 5 mg-325 mg tablet TAKE 1 TABLET EVERY 4 TO 6 HOURS NEEDED FOR PAIN. 04/16 completed Not Available Not Available Not Available dextroamphe tamine-amph etamine ER 20 mg 24hr capsule,ext end release TAKE 1 CAPSULE 1 TIME EACH DAY 04/16 completed Not Available Not Available Not Available benztropine 1 mg tablet TAKE 8 TABLETS 1 TIME EACH DAY active Not Available Not Available No t Available docusate sodium 100 mg capsule TAKE 1 CAPSULE BY MOUTH EVERY NIGHT AT BEDTIME FOR CONSTIPAT ION 04/16 completed Not Available Not Available Not Available omeprazole 20 mg capsule,del ayed release Take 1 capsule every day by oral route. active Not Available Not Available No t Available hydroxyzine HCl 25 mg tablet TAKE 1 TABLET 1 TIME EACH DAY AT BEDTIME NEEDED FOR SLEEP 04/16 completed Not Available Not Available Not Available Vitamin D2 1,250 mcg (50,000 unit) capsule TAKE 1 CAPSULE 1 TIME EACH WEEK 04/16 completed Not Available Not Available Not Available propranolol 20 mg tablet TAKE 1 TABLET 3 TIMES EACH DAY FOR ANXIETY. DO NOT TAKE IF BLOOD PRESSURE IS LESS THAN 90/60 OR PULSE IS LESS THAN 60 PER MINUTE. 04/16 completed Not Available Not Available Not Available topiramate 100 mg tablet TAKE 1 TABLET 1 TIME EACH DAY AT BEDTIME 04/16 completed Not Available Not Available Not Available lamotrigine 100 mg tablet TAKE 1 TABLET 1 TIME EACH DAY AT BEDTIME FOR MOOD 04/16 completed Not Available Not Available Not Available glycopyrrol ate 2 mg tablet TAKE ONE TABLET FOUR TIMES DAILY 04/16 completed Not Available Not Available Not Available topiramate 50 mg tablet TAKE 1 TABLET 1 TIME EACH DAY AT BEDTIME 04/16 completed Not Available Not Available Not Available nitrofurant oin monohydrate /macrocryst als 100 mg capsule TAKE 1 CAPSULE 2 TIMES EACH DAY FOR URINARY TRACT INFECTION . 04/16 completed Not Available Not Available Not Available chlorhexidi ne gluconate 0.12 % mouthwash SWISH 15 ML (TO LINE IN TOP) GENTLY FOR 30 SECONDS AND SPIT OUT 2 TIMES EACH DAY. 04/16 completed Not Available Not Available Not Available ferrous gluconate 324 mg (38 mg iron) tablet TAKE 1 TABLET BY MOUTH TWICE DAILY FOR SUPPLEMEN T 04/16 completed Not Available Not Available Not Available paliperidon e ER 6 mg tablet,exte nded release 24 hr TAKE ONE TABLET BY MOUTH EVERY NIGHT AT BEDTIME FOR MOOD/NELDA RE ANXIETY 04/16 completed Not Available Not Available Not Available ferrous gluconate 324 mg (37.5 mg iron) tablet TAKE ONE TABLET BY MOUTH TWICE DAILY FOR SUPPLEMEN T 04/16 completed Not Available Not Available Not Available Vraylar 1.5 mg capsule TAKE 1 CAPSULE 1 TIME EACH DAY 04/16 completed Not Available Not Available Not Available Vraylar 3 mg capsule TAKE 1 CAPSULE 1 TIME EACH DAY 04/16 completed Not Available Not Available Not Available Reguloid (psyllium husk) 0.4 gram capsule TAKE 2 CAPSULES BY MOUTH TWICE DAILY FOR SUPPLEMEN T 04/16 completed Not Available Not Available Not Available [facility] 10 billion cell-200 mg capsule TAKE 1 CAPSULE BY MOUTH EVERY MORNING 04/16 completed Not Available Not Available Not Available Vitals Date Recorded Body weight Pain severity - 0-10 verbal numeric rating [Score] - Reported Body mass index (BMI) Body height Systolic And Diastolic Provider Name and Address Organization Details Last Updated DateTime 04/16/2022 94061.3 g 0 29.4 kg/m2 162.56 cm 112/68 mm[Hg] Oksana Huber [place] - [facility] 14:50:02 Social History Question Answer Notes LastModified by Organizat ion Details LastModified Time Tobacco Smoking Status Never Smoker Oksana Huber null, [place] - [facility] 04/16/2022 14:59:02 Are You Blind Or Do You Have Difficulty Seeing? No Information not available 04/16/2022 What Is Your Level Of Caffeine Consumption? Occasional Information not available 04/16/2022 Are You Deaf Or Do You Have Serious Difficulty Hearing? No Information not available 04/16/2022 What Type Of Diet Are You Following? REGULAR Information not available 04/16/2022 What Was The Date Of Your Most Recent Tobacco Screening? 04/16/2022 Information not available 04/16/2022 Do You Use Protection During Sex? No Information not available 04/16/2022 Do You Use Protection Against STDs? No Information not available 04/16/2022 What Is Your Relationship Status? Information not available 04/16/2022 Are You Sexually Active? Yes Information not available 04/16/2022 Do You Have Difficulty Walking Or Climbing Stairs? No Information not available 04/16/2022 Sex: Unknown Functional Status Question Answer Note LastModified by Organizat ion Details LastModified Time Do you use any illicit or recreational drugs? No Information not available 04/16/2022 Do you or have you ever used any other forms of tobacco or nicotine? Yes Information not available 04/16/2022 What is your level of alcohol consumption? None in recovery Information not available 04/16/2022 Are you currently employed? No Information not available 04/16/2022 Do you have transportation difficulties? No Information not available 04/16/2022 What is your status? Not Information no t available 04/16/2022 Do you have difficulty doing errands alone? No Information not available 04/16/2022 Are you able to care for yourself independently? Yes Information not available 04/16/2022 Do you have difficulty dressing, bathing, grooming, or toileting? No Information not available 04/16/2022 Do you or have you ever used e-cigarettes or vape? Current user of electronic cigarettes Information not available 04/16/2022 What is your exercise level? None Information not available 04/16/2022 Mental Status Question Answer Note LastModified by Organization D etails LastModified Time Do you have difficulty concentrating, remembering or making decisions? No Information no t available 04/16/2022 Family History Relationship Description Onset Age of this Age Resolved Age Notes LastModified by Organization Details LastModified Time Father No current problems or disability evirgin Not available 04/16 14:58:20 Mother No current problems or disability evirgin Not available 04/16 14:58:20 Medical History No medical history recorded. Gynecological History Statement/Question Response Abnormal Pap Y Date of Last Mammogram Flow Moderate Date of LMP 03/20/2022 On BCP's at Conception? N STIs/STDs N HPV Vaccine N Duration of Flow (days) 7 Current Control Method None Age at Menarche 13 Age at First Child 2007 Last Annual Exam/Provider [facility]. Date of Last Colonoscopy Most Recent Bone Density Sexually Active? Y Menses Monthly N Date of Last Pap Smear 01/18/2022 Sexual Problems? Y LMP Approximate Hormone Replacement Therapy N Obstetrics History GPAL:G 3 P 1 0 1 1 Type Value Full Term 1 Induced 1 Living 1 Total 3 Immunizations Vaccine Type Date Status Note Provider Nam e and Address Organization Details Recorded Time COVID-19, mRNA, LNP-S, PF, 100 mcg/0.5mL dose or 50 mcg/0.25mL dose 08/16/2021 completed Oksana Huber null, [place] - [facility] 04/16/2022 14:54:14 COVID-19, mRNA, LNP-S, PF, 100 mcg/0.5mL dose or 50 mcg/0.25mL dose 09/16/2021 completed Oksana Huber null, [place] - [facility] 04/16/2022 14:54:24 Past Encounters Encounter ID Performer Location Encounter Start Date Encounter Closed Date Diagnosis/Indication Diagnosis SNOMED-CT Code Diagnosis ICD10 Code Diagnosis IMO Codes Diagnosis Note [id number] DO 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 7 [facility] L[place]IA [place] [address] 04/16/2022 14:33:42 04/16/2022 15:47:31 Patient medical record not available [id number] Z76.89 Vaginal discharge 804323 006 N89.8 Dysuria 00297708 R30.9 Vaginal odor 693031769 N 89.8 Mass of right breast 071 [id number] 5698028 N63.10 suspect fibroadeno ma Health Concerns Section Related Observation LastModified by Organization Detai ls LastModified Time None Recorded Concern Status LastModified by Organization Details LastModified Time None Recorded Advance Directives Directive None Recorded Payers Insurance Date Sequence Insurance Name Policy Number Policy Alcantara Covered Member ID Alcantara Member ID Guarantor Name 04/23/2022 1 [place] [id number] 3 Alysa Mancini [id number] Alysa Mancini Notes Date Note Type Note Provider Name and Address Organization Details Recorded Time 04/16/2022 text/html ROS as noted in the HPI Pt presents today to establish care. Pt states she has struggled with hot flashes and hormone issues since she was 17. Reports having hot flashes and night sweats since she was 17yo. Had issues with acne - which she reports has been an issue for a long time. 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 Nexplanon placed in May 2021 - had it removed in January 2022. Will continue to monitor. 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 Seeing a new counselor at [facility]. Part of an IOP through [facility]. Has complicated mental health history - major depressive disorder, anxiety, borderline personality disorder, possibly bipolar. 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 Reports having odor down there . She is not sure if it is related to her urine or related to urine. Had a mass removed from left breast in 2010. Fibrocystic adenoma removed. Reports having new mass that she noticed last night. Denies nipple discharge, has inverted nipples. Recommend mammogram and possible US. Vyvanse caused akathesia - was seen in ER for it and had Left bundle branch blockage noted. Stopped medication and was given Seroquel and Propanolol. Dr. Sung Sebastian - in [place] - is primary care physician. >25 minutes visits with >75% face to face interview. 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 Status 10/04/19 23 1 CLOSED Fetus Data First Name Last Name Admitted to NICU Weight (g) Sex Living Outcome Pediatric Complications Fetus ID Race Codes Race Delivery [place] [id number] Vaginal Bran Calculation Initial Bran Date Initial Exam Date Initial Exam Provider Initial Ultrasound Date Last Menstrual Period Date Ultra Sound Weeks Gestation 0 Eighteen To Twenty Week Bran Update Ultra Sound Date Fundal Height At Umbil Quickening Date Ultra Sound Latest Weeks Gestation Final Bran Confirmed By Final Bran Confirmed Date Final Bran Date Ultra Sound Latest Days Gestation 0 0 Menstrual History Last Menstrual Date Menses Monthly On Bcp Conception Prior Menses Frequency Hcg Plus Date Menarche Onset Age Delivery Information Delivery Date Delivery Type Labor Anesthesia Weeks Gestation Incision Type Labor Labor Length Hrs Delivered By Post Complications Tubal Sterilization Discharge Date Comments 1 Regional- idural 35 [facility] at [facility] no repair needed. Arrived c/o DFM Discharge Information Feeding Method Contraceptive Method Maternal HG B and HCT Levels
--- OUTSIDE RECORDS SUMMARY | 2025-08-10 15:28 | XMS_ITS | Encounter Summary ---
Author Organization [employer] ([place], [place], [place], [place], [place]) Address [address] [place] [address] Care Team Providers Care Molding Process Technician Name Role Phone Sandro Sebastian Primary Care Provider Unavailabl e Encounter Details Date Type Department Care Team (Late st Contact Info) Description 03/29/2021 Transcribed Document [facility] [address] [place] [address] ProviderMahi MD [address] [place] [address] Social History Tobacco Use Types Packs/Day Years Used Date Smoking Tobacco: Never Assessed Comments Unknown Sex and Gender Information Value Date Recorded Sex Assigned at Not on file Legal Sex Female 6:06 PM CDT Gender Identity Not on file Sexual Orientation Not on file documented as of this encounter Miscellaneous Notes * Cerner Conversion Note - Mahi ProviderMD - 03/29/2021 10:07 PM CDT Nursing Discharge [...] materials Teaching Evaluation : Verbalizes understanding Tesha Singletary RN - 03/29/2021 22:07 EDT documented in this encounter Plan of Treatment Not on file documented as of this encounter Visit Diagnoses Not on filedocumented in this encounter Care Teams Molding Process Technician Relationship Specialty Start Date End Date Sandro Sebastian [address] [place] [address] PCP - General 11/01/22 documented as of this encounter
--- OUTSIDE RECORDS SUMMARY | 2025-08-10 15:28 | XMS_ITS | Encounter Summary ---
Author Organization [employer] ([place], [place], [place], [place], [place]) Address [address] [place] [address] Care Team Providers Care Airworthiness Inspector Name Role Phone Sandro Sebastian Primary Care Provider Unavailabl e Encounter Details Date Type Department Care Team (Late st Contact Info) Description 03/29/2021 Transcribed Document [facility] Family Medicine [address] [place] [address] ProviderMahi MD [address], [place] [phone] Social History Tobacco Use Types Packs/Day Years [...] Beard MD - 03/29/2021 10:10 [place] [address] TIKAALYSA LOZANOS :1985 Visit Time:03/29/2021 Your Visit Summary Your [...] on 03/30/21 Follow-Up Appointments Follow Up with [facility]ON [facility] When Within in AM Comments Call the office for follow up appointment tomorrow morning. Call Dr De Souza or [facility] Pan for regular contractions 6/hour, leaking water, bleeding, abdominal pain, uterine pain, fever or decreased movement. Where: [address] [phone] Business (1) Medications What How Much When [...] these instructions at home: Medicines ??? Take hxml-nzz-nbewkge and prescription medicines only as told by [...] provider. Document Revised: 12/24/2019 Document Reviewed: 10/08/2017 [employer] Patient Education ?? 2020 [employer] Labor and Information The normal length of a is 39???41 weeks. labor is when labor starts before 37 completed weeks of . What are the risk factors for labor? labor is more likely to occur in women who: ??? Have certain infections during such as a bladder infection, sexually transmitted infection, or infection inside the uterus (chorioamnionitis). ??? Have a qbeocjr-sibn-yiwzxd cervix. ??? Have gone into labor before. [...] provider. Document Revised: 12/25/2019 Document Reviewed: 01/23/2017 [employer] Patient Education ?? 2020 [employer]. Emergency Awareness and Preventative Care STROKE is [...] Assistance with quitting is available by contacting [phone]. This is a free resource providing counseling, [...] Urine Bilirubin Dipstick: Negative mg/dL Urine Specific [place]: 1.019 -- Normal range between ( 1.005 [...] 9:05 PM Amniotic Fluid ROM: Negative Patient Name:FALLONMARIA DEL CARMENALYSA I have received and understand this information and was given the opportunity to ask questions. Patient/Certified Green Building Engineer Name: Patient/Certified Green Building Engineer Signature: Relationship to Patient: Clinician/Hospital Certified Green Building Engineer Signature: Date: documented in this encounter Plan of Treatment Not on file documented as of this encounter Visit Diagnoses Not on filedocumented in this encounter Care Teams Airworthiness Inspector Relationship Specialty Start Date End Date Sandro Sebastian [address] [id number] PCP - General 11/01/22 documented as of this encounter
--- NOTE | 2025-08-10 15:39 | CT_ITS ---
PROCEDURE INFORMATION: Exam: CTA Abdomen and Pelvis With Contrast Exam date and time: 08/10/2025 4:18 PM Age: 39 years old Clinical indication: Abdominal pain; Generalized TECHNIQUE: Imaging protocol: Computed tomographic angiography of the abdomen and pelvis with contrast. Exam focused on the arteries. 3D rendering (Not supervised by radiologist): MIP and/or 3D reconstructed images were created by the technologist. Radiation optimization: All CT scans at this facility use at least one of these dose optimization techniques: automated exposure control; mA and/or kV adjustment per patient size (includes targeted exams where dose is matched to clinical indication); or iterative reconstruction. Contrast material: ISOVUE 370; Contrast volume: 80 ml; Contrast route: INTRAVENOUS (IV); COMPARISON: 1. CT ABDOMEN PELVIS W CON 01/21/2025 1:56 PM 2. CR XR CHEST PORTABLE 08/10/2025 4:[address] ABDOMEN WO CON 04/20/2021 1:22 PM FINDINGS: Lungs: Dependent atelectatic changes are present at the right and left lung base. No focal dense airspace consolidation. Pleural spaces: Trace bilateral pleural effusions are present. Heart: Heart size is within normal limits. No pericardial effusion. Partial visualization of a 3 lead pacer device. Aorta: Abdominal aorta is patent and normal in caliber. Celiac and mesenteric arteries: Celiac artery is widely patent. Superior mesenteric artery is patent. Inferior mesenteric artery is patent. Renal arteries: Renal arteries are patent. Right iliac arteries: No occlusion or significant stenosis. Left iliac arteries: No occlusion or significant stenosis. Liver: There is diffuse decreased density throughout the liver in keeping with fatty infiltration. Gallbladder and biliary ducts: The gallbladder is unremarkable. No biliary ductal dilatation. Common bile duct is normal in caliber. Pancreas: The pancreas is unremarkable. No dilatation of the pancreatic duct. Spleen: Early timing of the contrast bolus limits evaluation of the spleen. Small calcified granulomas present within the superior aspect of the spleen. This is benign. Spleen is normal in size. Adrenal glands: The adrenal glands are unremarkable. Kidneys and ureters: 5 mm nonobstructing stone within the lower pole of the right kidney. No solid suspicious renal mass. No hydronephrosis. The ureters appear unremarkable. Stomach and bowel: Stomach is decompressed which limits evaluation. Stomach appears unremarkable. Small bowel loops are normal in caliber no evidence of a small bowel obstruction. Large stool burden is present throughout the entire colon compatible with some degree of constipation. No evidence of acute colitis. Appendix: Elongated appendix. Appendix is partially filled with air. No surrounding inflammatory change or wall thickening to suggest acute appendicitis. Intraperitoneal space: Trace amount of free fluid is present within the pelvis which almost certainly is physiologic given the patient's age. No significant free fluid. No free intraperitoneal air. Lymph nodes: There are no enlarged or suspicious intra-abdominal, pelvic or retroperitoneal lymph nodes. Urinary bladder: Bladder is distended. No bladder wall nodularity or bladder calculus. Reproductive: Uterus appears grossly unremarkable. Asymmetric enlargement of the right ovary which is somewhat nonspecific. No surrounding inflammatory change or free fluid. This is not well evaluated on CT imaging. Bones/joints: Transitional vertebrae is present at the lumbosacral junction. This is labeled S1. Advanced disc space narrowing is present at the L5-S1 level. No fracture or suspicious bone lesion. Soft tissues: Soft tissues are unremarkable as visualized. IMPRESSION: 1. The abdominal aorta is normal in caliber and widely patent. No focal stenosis or evidence for dissection. Major branch vessels are widely patent. Iliac arteries are widely patent. 2. Large amount of stool is present throughout near the entire colon compatible with some degree of constipation. No evidence for acute colitis. No evidence of a small bowel obstruction. 3. Trace amount of free fluid is present deep within the pelvis which almost certainly is physiologic given the patient's age. Slight asymmetric enlargement of the right ovary which is nonspecific and not well evaluated on this exam. No surrounding inflammatory change. Follow-up pelvic ultrasound could be considered as clinically indicated. 4. Trace bilateral pleural effusions are present. No large pleural effusion. Dependent atelectatic changes are present at the right and left lung base. 5. There is diffuse decreased density throughout the liver in keeping with fatty infiltration. 3 mm focus of arterial phase enhancement within the posterior inferior aspect of the right lobe of the liver (image 55 of series 7). This is somewhat nonspecific on this single-phase study. Liver surface is smooth.
--- NOTE | 2025-08-10 15:40 | XR_ITS ---
PROCEDURE INFORMATION: Exam: XR Chest Exam date and time: 08/10/2025 4:23 PM Age: 39 years old Clinical indication: Shortness of breath; Additional info: Short of breath TECHNIQUE: Imaging protocol: Radiologic exam of the chest. Views: 1 view. Portable upright chest x-ray. COMPARISON: CR XR CHEST PORTABLE 01/21/2025 1:03 PM FINDINGS: Tubes, catheters and devices: Left-sided cardiac device and 3 lead wires are radiographically intact. Lungs: No consolidation or lung nodules. Calcified granuloma in the upper right lung. Pleural spaces: No pleural effusion. No pneumothorax. Heart/Mediastinum: No abnormalities. No cardiomegaly. No pulmonary vascular congestion. Bones/joints: No fractures or bone lesions. IMPRESSION: No acute findings in the chest. No interval change.
--- NOTE | 2025-08-10 15:45 | ED_ITS ---
<Statement entered by Bennett Red MD - 08/11/25 11:20> I was consulted by the ENZO, and we discussed the complexity of the problems being addressed. I approve the treatment and management plan for this patient's care in the emergency department, thus performing a substantive portion of the medical decision making. Bennett Red MD Discharge Plan Disposition Patient Disposition: Home, Self-Care Prescriptions Prescriptions: New dexlansoprazole [Dexilant] 60 mg capsule,biphase delayed releas 60 mg PO DAILY 56 Days Qty: 56 0RF sucralfate [Carafate] 1 gram tablet 1 g PO BID 56 Days Qty: 112 0RF No Action hydroxyzine HCl 50 mg tablet 100 mg PO TIDP PRN (Reason: Anxiety) Patient Comments: TAKE 1 TO 2 TABLETS 3 TIMES EACH DAY NEEDED FOR ANXIETY buspirone 30 mg tablet 30 mg PO BID Patient Comments: TAKE 1 TABLET 2 TIMES EACH DAY lorazepam 1 mg tablet 1 mg PO TIDP PRN (Reason: Anxiety) loratadine [Allergy Relief (loratadine)] 10 mg tablet 10 mg PO DAILY omeprazole 40 mg capsule,delayed release(DR/EC) 40 mg PO DAILY glycopyrrolate 2 mg tablet 2 mg PO nadolol 20 mg tablet 10 mg PO DAILY Qty: 30 5RF trazodone 100 mg tablet 100 mg PO HS prucalopride 2 mg tablet 2 mg PO DAILY Qty: 30 12RF Rx Instructions: Please take 1 tablet by mouth daily in the late afternoon ferrous sulfate [FeroSul] 325 mg (65 mg iron) tablet 325 mg PO DAILY Xarelto 20 mg tablet 20 mg PO DAILY Qty: 30 2RF Rx Instructions: must administer with evening meal nitrofurantoin monohyd/m-cryst [Macrobid] 100 mg capsule 100 mg PO QHS Qty: 30 3RF Rx Instructions: must administer with a meal/food Auvelity 45-105 mg tablet, IR and ER, biphasic 1 tab PO BID Jardiance 10 mg tablet 10 mg PO DAILY gabapentin 100 mg capsule 100 mg PO BID Referrals Follow up/Referrals: Arvind Yu MD [Primary Care Provider, Internal Medicine] - See instructions Activity Restrictions/Add. Instructions Additional Instructions/Restrictions: Stop taking omeprazole in order to start taking the Dexilant. Increase fluids and rest. Take meds as directed. Please contact Dr. Yu about Dexilant if needed. Return to ED if any problems or concerns arise like we talked about Clinical Impressions Clinical Impression: Constipation, Chest pain Instructions Patient Instructions: Constipation, DI for Atypical Chest Pain Print Language Print Language: Czech Discharge ED Provider: Bennett Red General Chief Complaint: Chest Pain Stated Complaint: chest pain Time Seen by Provider: 08/10/25 15:17 Mode of Arrival: Ambulatory Source of Information: Patient Description of Symptoms (Recalled from ER Triage Doc. by RN): lower abd pain for about an hour that allof the sudden radiated to her chest and down her right arm. pt reports it as a dull pain and rates it a 6/10 at this time. pt also has an AICD implanted History of Present Illness HPI narrative: 39-year-old female presents to the ED today for complaint of abdominal pain that moves up into her chest. She has been drinking Mylanta and taking omeprazole for the last 2 months. She has chest pain and then fluttering that goes down her arm. She does have history of AICD implantation. Patient had Takotsubo after her third child at full-term. She says that this repaired itself but after the of her fourth child her EF was in the 20s. She said an AICD was placed. She says last week she went into A-fib she says she saw yes and he placed her on Xarelto a week ago. She was also placed on Jardiance. She says the pain feels like a gnawing pain. She has chest pain and headache as well. Related Data Home Medications ?Medication ?Instructions ?Recorded ?Confirmed loratadine 10 mg tablet (Allergy 10 mg PO DAILY 08/02/25 Relief (loratadine)) omeprazole 40 mg capsule,delayed 40 mg PO DAILY 08/02/25 release buspirone 30 mg tablet 30 mg PO BID 09/13/23 hydroxyzine HCl 50 mg tablet 100 mg PO TIDP PRN Anxiet y 09/13/23 08/02/25 lorazepam 1 mg tablet 1 mg PO TIDP PRN Anxiety 08/02/25 dextromethorphan IR 45 1 tab PO BID 12/24/24 mg-bupropion ER 105 mg biphasic tablet (Auvelity) empagliflozin 10 mg tablet 10 mg PO DAILY 12/25/24 (Jardiance) Held on 12/25/24. Instructions: Resume on 01/01/25. Hold this medication until you follow-up with cardiology as it can cause low blood pressures. glycopyrrolate 2 mg tablet 2 mg PO 01/21/25 08/02/25 gabapentin 100 mg capsule 100 mg PO BID 06/01/2508/02 trazodone 100 mg tablet 100 mg PO HS 06/01/25 ferrous sulfate 325 mg (65 mg 325 mg PO DAILY 08/02/25 08/02/25 iron) tablet (FeroSul) Previous Rx's ?Medication ?Instructions ?Recorded nadolol 20 mg tablet 10 mg (1/2 x 20 mg) PO DAILY #30 04/12/25 tabs prucalopride 2 mg tablet 2 mg PO DAILY #30 tabs 06/01 nitrofurantoin 100 mg PO QHS #30 caps 06/21 monohydrate/macrocrystals 100 mg capsule (Macrobid) rivaroxaban 20 mg tablet (Xarelto) 20 mg PO DAILY #30 tabs 08/02/25 dexlansoprazole 60 mg 60 mg PO DAILY 8 weeks #56 c aps 08/10/25 capsule,biphase delayed release (Dexilant) sucralfate 1 gram tablet (Carafate) 1 g PO BID 8 weeks #112 tabs 08/10/25 Allergies Allergy/AdvReac Type Severity Reaction Status Date / Time Penicillins Allergy Intermediate Rash Verified 08/02/25 13:38 [facility] Disclaimer: The information contained in this section may have been updated after the patient was seen, as this information can be updated by other users. Medical History (Updated 08/10/25 @ 19:08 by Brittanie Joaquin (ED), STAFFING EXECUTIVE) PAF (paroxysmal atrial fibrillation) Constipation Gestational diabetes SVT (supraventricular tachycardia) History of pacemaker NYHA class 3 systolic congestive heart failure with reduced left ventricular function NYHA class 2 heart failure with reduced ejection fraction High pulmonary arterial pressure Hypotension Syncope Elevated serum creatinine Creatinine elevation Kidney stone Family history of ischemic heart disease (IHD) Umbilical hernia Surgical History History of bladder surgery History of renal stent History of oral surgery History of breast biopsy Family History Grandfather Family history of myocardial infarction Sister Family history of cancer Father Family history of cancer Social History Smoking Status: Current every day smoker tobacco type: e-cigarettes second hand exposure: No alcohol intake: former substance use type: denies use current occupational status: unemployed Travel in the last 8 weeks?: None household members: family housing: house marital status: current occupational exposures/hazards: No caffeine: Yes Have you lived/traveled outside US in past 30 days?: No Contact w/someone who lives/traveled outside US past 30 days?: No Exposure to someone with infectious disease in past 14 days?: No Do you have a fever (greater than 100.4 F or 38 C)?: No Have you tested positive for COVID-19?: No Exposed to someone with COVID-19 in past 14 days?: No Do you have a sore throat?: No Do you have a cough?: No Do you have any weakness?: No Do you have any diarrhea?: No Are you experiencing any unusual bleeding?: No Do you have any muscle aches/pain?: No Do you have any abdominal pain?: No Are you experiencing loss of taste or smell?: No Other Medical History Have you received the Flu Vaccine for this season: No Have you received the Pneumonia Vaccine: No ROS Obtained: Yes Systems reviewed as appropriate & no additional complaints except as documented Constitutional Constitutional: Reports as per HPI Physical Exam General General appearance: alert and anxious Head Head exam: normocephalic Eye Eye exam: Present PERRL ENT ENT exam: Present mucous membranes moist Neck Neck exam: Present trachea midline Chest Chest inspection: Present normal inspection and symmetric chest wall rise Respiratory Respiratory exam: Present normal lung sounds bilaterally Cardiovascular Cardiovascular exam: Present regular rate, normal rhythm, normal heart sounds, +S1 and +S2 Abdominal Exam Abdominal exam: Present soft, tenderness and normal bowel sounds Abdominal tenderness: Present epigastrium Extremities Exam Extremities exam: Present full ROM and normal capillary refill Back Exam Back exam: Present full ROM Neurological Exam Neurological exam: Present alert and oriented X3 Psychiatric Psychiatric exam: Present normal affect and normal mood Skin Skin exam: Present warm and dry HEART Score HEART Score HEART Score assessment performed?: Yes History (anamnesis): Moderately suspicious ECG: Non-specific disturbance Age: <45 years Risk factors: 1-2 risk factors Troponin: </= normal limit HEART Score: 3 Critical Care Critical Care Time Critical Care Time: No Medical Decision Making Jaime Inquiry Pt receiving controlled substance: No Jaime was queried for this patient: No Vital Signs Vital Signs: 08/10/25 15:08 08/10/25 15:30 08/10/25 15:45 Temperature 97.7 F Temperature Source Oral Pulse Rate 71 64 Pulse Rate [Left Radial] 68 Respiratory Rate 16 19 18 Blood Pressure 120/81 115/77 Blood Pressure [Right Arm] 119/82 Blood Pressure Mean 91 89 Blood Pressure Mean [Right Arm] 94 Blood Pressure Source [Right Arm] Automatic Cuff Blood Pressure Position [Right Arm] Sitting 02 Sat by Pulse Oximetry 98 95 95 08/10/25 16:00 08/10/25 16:30 08/10/25 16:45 Temperature Temperature Source Pulse Rate 64 64 Pulse Rate [Left Radial] Respiratory Rate 12 14 Blood Pressure 119/85 103/74 L 108/67 L Blood Pressure [Right Arm] Blood Pressure Mean 94 83 79 Blood Pressure Mean [Right Arm] Blood Pressure Source [Right Arm] Blood Pressure Position [Right Arm] 02 Sat by Pulse Oximetry 95 95 08/10/25 17:15 08/10/25 17:45 08/10/25 18:00 Temperature Temperature Source Pulse Rate 61 62 71 Pulse Rate [Left Radial] Respiratory Rate 13 16 15 Blood Pressure 106/74 L 106/78 L 120/82 Blood Pressure [Right Arm] Blood Pressure Mean 84 85 94 Blood Pressure Mean [Right Arm] Blood Pressure Source [Right Arm] Blood Pressure Position [Right Arm] 02 Sat by Pulse Oximetry 94 L 95 94 L 08/10/25 18:15 08/10/25 18:30 08/10/25 18:45 Temperature Temperature Source Pulse Rate 60 63 72 Pulse Rate [Left Radial] Respiratory Rate 13 14 9 L Blood Pressure 118/84 122/82 116/85 Blood Pressure [Right Arm] Blood Pressure Mean 91 Blood Pressure Mean [Right Arm] Blood Pressure Source [Right Arm] Blood Pressure Position [Right Arm] 02 Sat by Pulse Oximetry 96 97 97 Lab Data Labs: Lab Results 08/10/25 15:20: WBC 7.5, RBC 5.22, Hgb 14.7, Hct 44.2, MCV 84.7, MCH 28.2, MCHC 33.3, RDW 12.6, Plt Count 281, MPV 9.8, Neut % (Auto) 54.1, Lymph % (Auto) 31.1, [place] % (Auto) 4.4, Eos % (Auto) 9.6, Baso % (Auto) 0.5, Neut # (Auto) 4.0, Lymph # (Auto) 2.3, [place] # (Auto) 0.3, Eos # (Auto) 0.7 H, Baso # (Auto) 0.0, Sodium 132 L, Potassium 4.2, Chloride 100, Carbon Dioxide 28, Anion Gap 8.2, BUN 16, Creatinine 0.90, Estimated Creat Clear 82, Estimated GFR 70, Est GFR ( Amer) 85, Glucose 91, Calcium 9.3, Magnesium 2.2, Total Bilirubin 0.6, AST 42 H, ALT 17, Alkaline Phosphatase 53, Troponin I 0.01, Total Protein 7.8, Albumin 4.9, Globulin 2.9, Albumin/Globulin Ratio 1.7, Lipase 34, Serum HCG, Qual Negative 08/10/25 18:09: Troponin I < 0.01 08/10/25 15:20 08/10/25 15:20 Response Orders (Tests/Meds): ED MEDICATIONS Generic Name Dose Route Start Last Admin Trade Name Freq PRN Reason Stop Dose Admin Sodium Chloride 8 ml 08/10/25 15:40 Sodium Chloride 0.9% 10ml Vial IV 09/09/25 15:39 NEEDED PRN dilute pepcid Discontinued Medications Generic Name Dose Route Start Last Admin Trade Name Freq PRN Reason Stop Dose Admin Belladonna Alkaloids 60 ml 08/10/25 18:10 08/10/25 18:23 Belladonna Alkaloids 60 Ml Ml PO 08/10/25 18:11 60 ml ONCE ONE Administration Famotidine 20 mg 08/10/25 15:40 08/10/25 15:53 Famotidine 20mg/2ml Vial IV 08/10/25 15:41 20 mg ONCE ONE Administration Hydromorphone HCl 0.5 mg 08/10/25 18:10 08/10/25 18:23 Hydromorphone 2mg/Ml Syringe IV 08/10/25 18:11 0.5 mg ONCE ONE Administration Iopamidol 80 ml 08/10/25 16:25 08/10/25 16:25 Iopamidol-370 (76%);100ml Bottle IV 08/10/25 16:26 80 ml ONCE ONE Administration Morphine Sulfate 4 mg 08/10/25 15:40 08/10/25 15:53 Morphine 4mg/Ml Syringe IV 08/10/25 15:41 4 mg ONCE ONE Administration Ondansetron HCl 4 mg 08/10/25 15:40 08/10/25 15:53 Ondansetron 4mg/2ml Vial IV 08/10/25 15:41 4 mg ONCE ONE Administration Sodium Chloride 10 ml 08/10/25 16:25 08/10/25 16:25 Sodium Chloride 0.9% 10ml Syr (Rad Only) IV 08/10/25 16:26 10 ml ONCE ONE Administration Sodium Chloride 50 ml 08/10/25 16:25 08/10/25 16:25 0.9 % Sodium Chloride 50 Ml Vial IV 08/10/25 16:26 50 ml ONCE ONE Administration ORDERS Category Date Time Status CT angio abdomen pelvis Stat Cat Scan 08/10/25 15:39 Completed Chest XR -- portable [XR chest portable] Stat Exams 08/10/25 15:40 Completed BNP [NT Pro Brain Natriuretic Pep.] Stat Lab 08/10/25 18:09 Received CBC [Complete Blood Count Auto Diff] Stat Lab 08/10/25 15:20 Completed Comprehensive Metabolic Panel Stat Lab 08/10/25 15:20 Completed HCG Qualitative, Serum Stat Lab 08/10/25 15:20 Completed Lactate Venous Stat Lab 08/10/25 15:40 Ordered Lipase Stat Lab 08/10/25 15:20 Completed Magnesium Stat Lab 08/10/25 15:20 Completed Trop I [Troponin I] Stat Lab 08/10/25 15:20 Completed Troponin I Q3H Lab 08/10/25 18:09 Completed Troponin I Q3H Lab 08/10/25 21:45 Ordered Urinalysis and Microscopic Stat Lab 08/10/25 16:43 Ordered MDM Narrative Medical Decision Narrative: patient is a 39-year-old female presenting to the emergency department for evaluation of chest pain, abdominal pain. Patient is hemodynamically stable and nontoxic-appearing upon arrival, afebrile. Differential diagnosis includes mesenteric ischemia, ulcer, chest pain, A-fib, CHF, among others. Workup will be conducted with hematologic labs, specific imaging. Initial inventions include crystalloid bolus, analgesics. Initial workup reviewed by me hematologic labs are remarkable for . White count 7.5, H&H are normal, potassium was normal BUN and creatinine were normal mag was normal troponin both 1 and 2 were less than 0.01. Abdominal pathology on the scan showed no dissection large amount of stool no colitis no bowel obstruction, trace pleural effusion. No acute findings on the chest.Patient and I discussed at length with her pain being continuing but her labs being normal that this may be cardiac in pathology but since has been going on so long and she is seeing Dr. Carter last week that it is like not related to her heart. She did get a GI cocktail which did help her abdominal pain. She says she does feel much better. She and I talked about going home on Carafate and Dexilant. We discussed getting this approved and possible having to do a PA for this. She and I discussed Dr. Yu and calling him tomorrow to make sure this happens. Patient and I discussed return precautions. She says if she has worsening pain she will return to the ER immediately. I did offer admission but patient wanted to go home.
[2025-08-10 15:46] LABS: Hematocrit 44.2 % (37.0-47.0); Hemoglobin 14.7 g/dL (12.2-16.2); Immature Granulocytes % 0.3 %; Mean Corpuscular HGB Conc 33.3 g/dL (31.8-35.4); Mean Corpuscular Hemoglobin 28.2 pg (27.0-31.2); Mean Corpuscular Volume 84.7 fl (81-99); Nucleated Red Blood Cells % 0 %; Platelet Count 281 K/mm3 (142-424); Red Blood Count 5.22 M/mm3 (4.20-5.40); Red Cell Distribution Width-SD 38.7 fL; White Blood Count 7.5 K/mm3 (4.8-10.8)
[2025-08-10] MEDS: MORPHINE 4MG/ML SYRINGE 4 MG IV (15:53)
[2025-08-10] MEDS: FAMOTIDINE 20MG/2ML VIAL 20 MG IV (15:53)
[2025-08-10] MEDS: ONDANSETRON 4MG/2ML VIAL 4 MG IV (15:53)
[2025-08-10 15:54] LABS: Alanine Aminotransferase 17 U/L (12-78); Albumin Level 4.9 g/dl (3.5-5.0); Albumin/Globulin Ratio 1.7 (1.1-1.8); Alkaline Phosphatase 53 U/L (38-126); Anion Gap 8.2 mEq/L (5-15); Aspartate Amino Transferase 42 U/L (14-36); Bilirubin,Total 0.6 mg/dl (0.2-1.3); Blood Urea Nitrogen 16 mg/dl (7-17); Calcium 9.3 mg/dl (8.4-10.2); Carbon Dioxide 28 mmol/L (22.0-30.0); Chloride 100 mmol/L (98-107); Creatinine Clearance Estimated 82 mL/min (50-200); Creatinine,Serum 0.90 mg/dl (0.52-1.04); Estimated Glomerular Filt Rate 70 ml/min (>60); GFR (African American) 85 ML/MIN (>60); Globulin 2.9 g/dL (1.3-3.2); Glucose 91 mg/dl (74-100); Lipase 34 U/L (23-300); Magnesium 2.2 mg/dl (1.6-2.3); Potassium 4.2 mmoL/L (3.5-5.1); Sodium 132 mmol/L (136-145); Total Protein,Serum 7.8 g/dl (6.3-8.2)
[2025-08-10 16:05] LABS: HCG Qualitative, Serum Negative (Negative)
[2025-08-10 16:21] LABS: Troponin I 0.01 ng/ml (0.00-0.034)
[2025-08-10] MEDS: 0.9 % SODIUM CHLORIDE 50 ML VIAL IV (16:25)
[2025-08-10] MEDS: IOPAMIDOL-370 (76%);100ML BOTTLE 80 ML IV (16:25)
[2025-08-10] MEDS: SODIUM CHLORIDE 0.9% 10ML SYR (RAD ONLY) 10 ML IV (16:25)
--- NOTE | 2025-08-10 18:09 | PC.NURSE ---
I rounded on the pt. She reports 6/10 pain and requests something to help. I sent off her second troponin. no other complaints. Warm blanket provided for comfort. Family bedside and call georges in reach. Lian MCKAY notified of pain.
[2025-08-10] MEDS: BELLADONNA ALKALOIDS 60 ML ML PO (18:23)
[2025-08-10] MEDS: HYDROMORPHONE 2MG/ML SYRINGE 0.5 MG IV (18:23)
[2025-08-10 18:40] LABS: Troponin I < 0.01 ng/ml (0.00-0.034)
[2025-08-10 19:18] LABS: NT Pro Brain Natriuretic Pep. 221 pg/mL (0-125)
== END 2025-08-10 19:25 | disposition home or self-care (01) ==
PROVIDERS: Nurse Practitioner; Emergency Provider Student in an Organized Health Care Education/Training Program; PCP Family Medicine
DX: R07.9 Chest pain, unspecified (principal); K59.00 Constipation, unspecified; R10.30 Lower abdominal pain, unspecified; M79.601 Pain in right arm; R51.9 Headache, unspecified; I48.0 Paroxysmal atrial fibrillation; F17.290 Nicotine dependence, other tobacco product, uncomplicated; Z95.810 Presence of automatic (implantable) cardiac defibrillator; Z79.84 Long term (current) use of oral hypoglycemic drugs; Z79.899 Other long term (current) drug therapy; Z82.49 Family history of ischemic heart disease and other diseases of the circulatory system
CPT/HCPCS: 71045; 74174; 80053; 83690; 83735; 83880; 84484; 84703; 85025; 93005; 96374; 96375; 99285; J1171; J1308; J2270; J2405; Q9967

== ENCOUNTER 2025-08-20 18:12 | Observation (INO) | payer BC, SELFPAY ==
[2025-08-20] VITALS (8 sets, daily range): BP systolic 116–143; BP diastolic 73–96; PULSE 71–85; RESP 15–18; TEMP 36.5–37.1; O2SAT 95–98; BMI 23.0; BMI 22.6
--- OUTSIDE RECORDS SUMMARY | 2025-08-20 18:21 | XMS_ITS | Clinical Summary ---
Author Organization [facility] Address [address] [place] [address] Care Team Providers Care Livestock Farmers Name Role Phone Sandro Sebastian MD Primary Care Provider [phone] Allergies Active Allergy Reactions Criticality Noted Date [...] meals Email sugars weekly / message via [employer] She will begin testing sugars fasting and 2 hours after meals and will fax blood sugars weekly to [email or web address] We will plan to see her back in 3- 4 weeks, or sooner if problems or questions. Thank you for this referral and please do not hesitate to call for any problems or questions. 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 She followed with a research recruiter at that time. She reports an echo done in November of this year that was normal. Most literature regarding cardiomyopathy during or recently has not included stress-induced cardiomyopathy. Literature related to cardiomyopathy she has increased maternal risk if there is not recovery of ejection fraction. Given her normal echo patient is at decreased risk. Encourage patient to follow-up with research recruiter and would likely need an echo early [...] drink = 0.6 oz pur e alcohol) [facility] Utilities Answer Date Recorded In the past 12 months has [employer], gas, oil, or water [facility] threatened to shut off services in your [...] and heating? Not hard at all 11/20/2023 [facility] - Occupational Stress Questionnaire Answer Date [...] things needed for daily living? No 11/20/2023 Caroleen Depression Scale Answer Date Recorded Caroleen Depression Scale Total 20 12/04/2023 The thought [...] GED or equivalent No 11/20/2023 Preferred Language Vietnamese 11/20/2023 PHQ-2 Answer Date Recorded Retired PHQ-9: [...] this topic Medical Devices Implanted Type Area Picker Device Identifier Shelf Expiration Date Model / [...] ve Non-Reacti ve 06/05/2023 1:47 AM EDT [facility] Blood Venipuncture / Unknown 06/04/2023 1:54 PM EDT 06/04/2023 1:56 PM EDT Narrative [facility] - 06/05/2023 1:47 AM EDT Results may be falsely decreased if patient taking Biotin. [facility] BLOOD ORDERABLES Final Re sult [facility]
[address] [place] [address], from Last 3 Months or Most Recently Relevant to Health Maintenance [place] [address] [address] PPO Member Subscriber Plan / Payer (Ef fective 2024-Present) Name:Alysa Mancini Relation to Subscriber:Self Name:Alysa Mancini Payer ID:[id number] (NAIC) Type:Not on file Address: [facility] [id number] [id number] Advance Directives * CPR (Attempt to Resuscitate) [...] pulse or is breathing): Full Care Teams Livestock Farmers Relationship Specialty Start Date End Date Sandro Sebastian MD [address] [place] [address] PCP - General Family Medicine 06/23/19
--- OUTSIDE RECORDS SUMMARY | 2025-08-20 18:22 | XMS_ITS | Encounter Summary ---
Author Organization [facility] Address [address] [place] [address] Care Team Providers Care Sonar Subsystem Equipment Operator Name Role Phone Sandro Sebastian MD Primary Care Provider [phone] Encounter Details Date Type Department Care Team (Late Contact Info) Description 05/26/2024 Orders Only External Location [address] [place] [address] Brendon Cunningham MD [address] [place] [address] Social History Tobacco Use Types Packs/Day Years [...] Description 08/24/2025 2:20 PM EST Office Visit [facility] [place] [address] [facility] [facility], [address] [place] [address] Galo Leung MD [address] [place] [address] documented as of this encounter Procedures [...] documented as of this encounter Care Teams Sonar Subsystem Equipment Operator Relationship Specialty Start Date End Date Sandro Sebastian MD [address] [place] [address] PCP - General 01/27/21 documented as of this encounter
--- OUTSIDE RECORDS SUMMARY | 2025-08-20 18:22 | XMS_ITS | Encounter Summary ---
Author Organization [facility] Address [address] [place] [address] Care Team Providers Care Telephone Worker Name Role Phone Sandro Sebastian MD Primary Care Provider [phone] Encounter Details Date Type Department Care Team (Late st Contact Info) Description 11/27/2023 Orders Only External Location [address] [place] [phone] Provider, External Social History Tobacco Use Types [...] Description 08/24/2025 2:20 PM EST Office Visit [facility] [place] [address] [facility], [address] [place] [address] Galo Leung MD [address] [place] [address] documented as of this encounter [...] documented as of this encounter Care Teams Telephone Worker Relationship Specialty Start Date End Date Sandro Sebastian MD [address] [place], [place] [id number] PCP - General 01/27/21 documented as of this encounter
--- OUTSIDE RECORDS SUMMARY | 2025-08-20 18:22 | XMS_ITS | Clinical Summary ---
Author Organization [employer] ([place], [place], [place], [place], [place]) Address [address] [place] [address] Care Team Providers Care Litigation Counsel Name Role Phone Sandro Sebastian Primary Care [...] Date Sal rded Speak language other than Togolese at home Not on file 10/04/2023 Want [...] Advance Directives For more information, please contact: [phone] * Full Code (Latest Code Status on File) Date Activated Date Inactivated Comments 12/12/2022 6:00 AM 12/12/2022 9:56 AM -Attempt Res uscitation if person has no pulse and is not breathing. -If no pulse or not breathing attempt CPR/CODE. -Call Rapid Response if patient is in distress. Care Teams Litigation Counsel Relationship Specialty Start Date End Date Sandro Sebastian [address] [place] [address] PCP - General 11/01/22
--- OUTSIDE RECORDS SUMMARY | 2025-08-20 18:22 | XMS_ITS | Clinical Summary ---
Author Organization [facility] Address [address] [place] [address] Care Team Providers Care Senior Lead Developer Name Role Phone Sandro Sebastian MD Primary Care Provider [phone] Allergies Active Allergy Reactions Criticality Noted Date Comments Dapagliflozin Diarrhea Low 11/24/2024 Penicillins Rash,Hives,Itching Medium 06/06/2011 Metoprolol Diarrhea Low 11/24/2024 Medications * This document contains information received from the source organization and may not represent a complete record from that organization. glycopyrrolate (Robinul) 2 MG tablet Take 1 tablet (2 mg) by mouth 4 (four) times a day as needed. Active traZODone (Desyrel) 50 MG tabletIndications: Unspecified mood (affective) disorder (CMS/HCC) Take 3 tablets (150 mg total) by mouth every night. 90 tablet 1 09/26/19 23 Active hydrOXYzine HCl (Atarax) 25 MG tablet TAKE 1 TABLET 3 TIMES EACH DAY NEEDED FOR ANXIETY 90 tablet 11/15/19 23 Active Auvelity 45-105 MG tablet controlled-release Take 45 mg by mouth 2 (two) times a day. 06/18/20 24 Active hydrOXYzine pamoate (Vistaril) 50 MG capsule Take 1 capsule (50 mg) by mouth 3 (three) times a day. 07/15/20 23 Active LORazepam (Ativan) 1 MG tablet Take 1 tablet (1 mg) by mouth 3 (three) times a day. 09/13/20 23 Active Loratadine 10 MG capsule Take 10 mg by mouth 1 (one) time each day. Active omeprazole (PriLOSEC) [address] capsule Take 1 capsule (40 mg) by mouth daily. 02/25/20 24 Active hydrOXYzine HCl (Atarax) 50 MG tablet Take 1 tablet (50 mg) by mouth every 6 hours as needed. 10/07/19 25 Active lamoTRIgine (LaMICtal) 100 MG tablet Take 1 tablet (100 mg) by mouth. 10/19/19 25 Active Tirzepatide-Weight Management (Zepbound) 2.5 MG/0.5ML solution auto-injector Inject under the skin. Active bisoprolol (Zebeta) 5 MG tablet Take 1 tablet (5 mg) by mouth daily. 90 tablet 3 11/03/19 25 Active spironolactone (Aldactone) 25 MG tablet Take 0.5 tablets (12.5 mg) by mouth daily. 90 tablet 3 11/03/19 25 Active empagliflozin (Jardiance) 10 MG Take 1 tablet (10 mg) by mouth daily. 90 tablet 3 11/03/19 25 Active torsemide (Demadex) 5 MG tablet Take 1 tablet (5 mg) by mouth in the morning. 30 tablet 3 11/25/19 25 Active iron sucrose 100 mg in sodium chloride 0.9 % 95 mL IVPB Infuse 100 mg into a venous catheter 1 (one) time per week at 100 mL/hr over 60 minutes. 1 each 3 11/28/19 25 Active lisinopril 2.5 MG tablet Take 1 tablet (2.5 mg) by mouth in the morning. 30 tablet 6 12/09/19 25 Active HYDROcodone-acetam inophen (Newbury) 7.5-325 MG tablet Take 1 tablet by mouth every 6 hours as needed. 11/18/19 25 Active ondansetron ODT (Zofran-ODT) 4 MG disintegrating tablet Dissolve 1 tablet on the tongue every 8 hours as needed. 04/15/20 25 Active etonogestrel-eluti ng contraceptive device (Nexplanon) 68 MG implant 1 each by Implant route As Directed. Active Prucalopride Succinate (Motegrity) 2 MG tablet Take 1 tablet by mouth daily. 06/01/20 25 Active busPIRone (Buspar) 30 MG tablet Take 1 tablet by mouth 2 times a day. 06/02/20 25 Active gabapentin (Neurontin) 100 MG capsule Take 1 capsule by mouth 2 times a day. 06/03/20 Active traZODone (Desyrel) 100 MG tablet Take 1 tablet by mouth nightly. 05/13/20 25 Active Psyllium (Metamucil 4 in 1 Fiber) 43 % powder Metamucil A ctive Prucalopride Succinate (Motegrity) 1 MG tablet Prucalopride Succinate Active Drospirenone (Slynd) 4 MG tablet Take 1 tablet by mouth daily. 06/09/20 25 025 Active Active Problems Problem Noted Date Diagnosed Date Amenorrhea 08/20/2025 Pain in female genitalia on intercourse 08/20/20 Anemia of 08/19/2025 Cervical high risk HPV (human papillomavirus) te st positive 08/19/2025 Secondary oligomenorrhea 08/19/2025 Supervision of other high risk pregnancies, thir d trimester 08/19/2025 Unspecified mood (affective) disorder 03/31/2025 Iron deficiency anemia 11/09/2024 Abnormal cardiovascular stress test 01/06/2024 Abnormal ECG 01/06/2024 Abnormal echocardiogram 01/06/2024 Cushingoid facies 01/06/2024 Dyspnea 01/06/2024 Edema of both lower extremities 01/06/2024 Fatigue 01/06/2024 Renal colic on right side 01/06/2024 Umbilical hernia 01/06/2024 (normal spontaneous vaginal delivery) 11/20 Gestational diabetes mellitus (GDM) 10/08/2023 History of pre-eclampsia in prior , currently in first trimester 06/04/2023 Advanced maternal age in multigravida 02/19/2023 Severe episode of recurrent major depressive disorder, without psychotic features 02/19/2023 Chronic constipation 12/12/2022 Gastroesophageal reflux disease without esophagi tis 11/05/2022 Mixed anxiety and depressive disorder 11/05/2022 Sinus tachycardia 11/05/2022 Stress-induced cardiomyopathy 11/05/2022 Chronic hypertension in 01/07/2019 Medication exposure during first trimester of pr egnancy 01/07/2019 Hyperhidrosis 05/08/2018 Encounters Date Type Department Care Team Description 08/20/2025 Orders Only [facility] [place] [address], [address] [place] [address] Nicole Ferrell 06/08/2025 Telephone [facility] [place] [address], [address] [place] [address] Galo Leung MD [facility] Clinical Concern/Question 06/03/2025 3:27 PM EDT - 06/03/2025 11:59 PM EDT Hospital Encounter Medical Office Building Cardiac Diagnostic Testing Medical Office Building Echo Lab [address] [facility], [address] [place] [address] Chronic combined systolic and diastolic heart failure (CMS/HCC) Discharge Disposition: Home or Self Care 06/03/2025 Travel from Last 3 Months Immunizations Immunization Administration Dates Next Due Influenza, Unspecified 07/02/2018,07/12/2016 Moderna COVID-19 Vaccine (Steaming Cabinet Tender) 12+ years 09/2021,08/16/2021 Family History Medical History Relation Name Comments [...] Care Team (Late st Contact Info) Description 08/24/2025 2:20 PM EST Office Visit [facility] [place] [address] [facility], [address] [place] [address] Galo Leung MD [address] [place] [address] Health Maintenance Due Date Last [...] [facility]-Cervical Cancer Screening 12/20/2017 [facility]-HPV/Cotest 12/20/2017 05/29/2006 [id number] Vaccine (3 - Moderna risk series) 10/14/2021 [...] is no recent study available for direct ssah-ye-agyl comparison. Left Ventricle Based on the linear [...] is no recent study available for direct xgul-ei-bxfo comparison. us Galo Leung MD CV ECHO [...] sult [facility] [address] [place] [address] * Cytology (05/29/2006 12:00 AM EDT) 05/29/2006 05/30/2006 11: 55 AM EDT Narrative [facility] - 05/31/2006 1:59 PM EDT [facility] MR #: [facility] BELGICA MANC[place]I [place], [place] [address] 1985 (Age: 20) FW Collect Date: 05/29/2006 00:00 Receipt Date: 05/30/2006 11:55 Page 1 DEPARTMENT OF PATHOLOGY AND LABORATORY MEDICINE CYTOPATHOLOGY REPORT Email: [phone] ATTENDING MD/Practitioner: Oliver Hernandez MD Service: FIRE TECHNOLOGY INSTRUCTOR Location: [facility] Reported: 05/31/2006 13:59 Collected: 05/29/2006 00:00 [...] results is suggested (please call Microbiology at [phone] for results). CLINICAL INFORMATION: Menstrual History: Cyclic Date of Last Menstrual Period: 05/17/06 Contraceptive History: control pills Other Clinical Conditions: Clinical information indicates patient has high risk factor(s). SPECIMEN DESCRIPTION: A: THIN PREP (CERVICAL/VAGINAL) THIN PREP PROCESS CELLULAR ENHANCEMENT ICD: V76.2 CERVIX, SPECIAL SCREENING FOR MALIGNANT NEOPLASM V15.89 OTHER PERSONAL HISTORY PRESENT HAZARDS TO HEALTH F: A; [address] [facility] SNOMED CODES: A; [id number] In cases where a pathologist has signed out the report, the service has been rendered in part by a resident. The signing pathologist has performed and is responsible for the reported pathologic evaluation. us Historical Provider LAB PATHOLOGY ORDERABLES Fin al Result ARTHUR from Last 3 Months or Most Recently Relevant to Health Maintenance Insurance [employer] Care Teams Senior Lead Developer Relationship Specialty Start Date End Date Sandro Sebastian MD [address] [place] [address] PCP - General 01/27/21
--- OUTSIDE RECORDS SUMMARY | 2025-08-20 18:22 | XMS_ITS | Encounter Summary ---
Author Organization [employer] ([place], [place], [place], [place], [place]) Address [address] [place] [address] Care Team Providers Care Pile Driving Nozzleman Name Role Phone Sandro Sebastian Primary Care Provider Unavailabl e Encounter Details Date Type Department Care Team (Late st Contact Info) Description 03/29/2021 Transcribed Document [facility] [address] [place] [address] ProviderMahi MD [address] [place], [place] [id number] Social History Tobacco Use Types Packs/Day Years [...] Beard MD - 03/29/2021 10:10 [place] [address] BELGICA MANCINI :1985 Visit Time:03/29/2021 Your Visit Summary [...] movement. Where: [address] [phone] Business (1) Medications What How Much When [...] these instructions at home: Medicines ??? Take tkgn-lcg-zzvgnkb and prescription medicines only as told by [...] provider. Document Revised: 12/24/2019 Document Reviewed: 10/08/2017 [employer] Patient Education ?? 2020 [employer] Labor and Information The normal length of a is 39???41 weeks. labor is when labor starts before 37 completed weeks of . What are the risk factors for labor? labor is more likely to occur in women who: ??? Have certain infections during such as a bladder infection, sexually transmitted infection, or infection inside the uterus (chorioamnionitis). ??? Have a iyjkdnr-kboy-pgqgvo cervix. ??? Have gone into labor before. [...] provider. Document Revised: 12/25/2019 Document Reviewed: 01/23/2017 [employer] Patient Education ?? 2020 [employer]. Emergency Awareness and Preventative Care STROKE is [...] Assistance with quitting is available by contacting 7-060-XTLS-NOW. This is a free resource providing counseling, [...] Urine Bilirubin Dipstick: Negative mg/dL Urine Specific [employer]: 1.019 -- Normal range between ( 1.005 [...] Amniotic Fluid ROM: Negative Patient Name:FALLONMARIA DEL CARMENBELGICA I have received and understand this information and was given the opportunity to ask questions. Patient/Operations Assistant Name: Patient/Operations Assistant Signature: Relationship to Patient: Clinician/Hospital Operations Assistant Signature: Date: documented in this encounter Plan of Treatment Not on file documented as of this encounter Visit Diagnoses Not on filedocumented in this encounter Care Teams Pile Driving Nozzleman Relationship Specialty Start Date End Date Sandro Sebastian [address] [address] PCP - General 11/01/22 documented as of this encounter
--- OUTSIDE RECORDS SUMMARY | 2025-08-20 18:22 | XMS_ITS | Encounter Summary ---
Author Organization [employer] ([place], [place], [place], [place]) Address [address] [place] [address] Care Team Providers Care Beveller Operator Name Role Phone Sandro Sebastian Primary Care Provider Unavailabl e Encounter Details Date Type Department Care Team (Late st Contact Info) Description 03/29/2021 Transcribed Document [facility] Family Medicine [address] [place] [address] ProviderMahi MD [address] [place] [address] Social History Tobacco Use Types Packs/Day Years [...] on filedocumented in this encounter Care Teams Beveller Operator Relationship Specialty Start Date End Date Sandro Sebastian [address] [place] [address] PCP - General 11/01/22 documented as of this encounter
--- OUTSIDE RECORDS SUMMARY | 2025-08-20 18:22 | XMS_ITS | Encounter Summary ---
Author Organization [employer] ([place], [place], [place], [place], [place]) Address [address] [place] [address] Care Team Providers Care Road Hogger Operator Name Role Phone Sandro Sebastian Primary Care Provider Unavailabl e Encounter Details Date Type Department Care Team (Late st Contact Info) Description 03/29/2021 Transcribed Document [facility] Family Medicine [address] [place] [address] ProviderMahi MD [address] [place] [address] Social History Tobacco Use Types Packs/Day Years [...] on filedocumented in this encounter Care Teams Road Hogger Operator Relationship Specialty Start Date End Date Sandro Sebastian [address] [place] [address] PCP - General 11/01/22 documented as of this encounter
--- OUTSIDE RECORDS SUMMARY | 2025-08-20 18:22 | XMS_ITS | Encounter Summary ---
Author Organization [facility] Address [address] [place] [address] Care Team Providers Care Chief Wharfinger Name Role Phone Sandro Sebastian MD Primary Care Provider Encounter Details Date Type Department Care Team (Late Contact Info) Description 04/06/2021 Lab Requisition [facility] [address] [place] [address] Braxton Ballesteros MD [address] [facility] [address] [place], [place] [id number] Encounter for general adult medical examination without [...] Description 08/24/2025 2:20 PM EST Office Visit [facility] [place] [address] [facility], [address] [place] [address] Galo Leung MD [address] [place] [phone] documented as of this encounter Visit Diagnoses Diagnosis Encounter for general adult medical examination without abnormal findings documented in this encounter Care Teams Chief Wharfinger Relationship Specialty Start Date End Date Sandro Sebastian MD [address] [place] [address] PCP - General 01/27/21 documented as of this encounter
--- OUTSIDE RECORDS SUMMARY | 2025-08-20 18:22 | XMS_ITS | Referral Summary ---
Author Organization [employer] ([place], [place], [place], [place], [place]) Address [address] [place] [address] Care Team Providers Care Color Maker Formulator Name Role Phone Sandro Sebastian Primary Care [...] Date Sal rded Speak language other than Niuean at home Not on file 10/04/2023 Want [...] Advance Directives For more information, please contact: [phone] * Full Code (Latest Code Status on File) Date Activated Date Inactivated Comments 12/12/2022 6:00 AM 12/12/2022 9:56 AM -Attempt Res uscitation if person has no pulse and is not breathing. -If no pulse or not breathing attempt CPR/CODE. -Call Rapid Response if patient is in distress. Care Teams Color Maker Formulator Relationship Specialty Start Date End Date Sandro Sebastian [address] [place] [address] PCP - General 11/01/22
--- OUTSIDE RECORDS SUMMARY | 2025-08-20 18:22 | XMS_ITS | Data Portability ---
Author Organization [facility] GILBERTO Carcamo [place] [facility] Address [address] [place] [address] Care Team Providers Care Health Services Administrator Name Role Phone ADITI SALOMON Primary Care Provider [phone] Assessment Encounter Date Assessment Date Assessment LastModified [...] followup and strict limitations for sling placement. [email or web address] Not available 11/17/2024 14:21:03 11/23/2024 11/23/2024 Continue [...] to the incomplete emptying. Follow-up with [facility]. [email or web address] Not available 12/06/2024 14:19:39 12/17/2024 12/17/2024 She is not having symptoms of stress incontinence at this time. She has occasional urgency. Hesitancy has improved. [email or web address] Not available 12/27/2024 08:17:15 04/22/2025 04/22/2025 - Stress urinary incontinence managed with TOT sling, maintaining dryness. - Difficulty initiating urination, possibly due to sling tension. [email or web address] Not available 04/22/2025 16:39:21 07/29/2025 07/29/2025 - 39-year-old female with a history of female stress urinary incontinence presenting with increased frequency of urination and nocturia. - Increased frequency of urination and nocturia: The patient reports urinating every one to two hours during the day and three to four times at night. Urine analysis shows no infection, suggesting overactive bladder as a potential cause. Consideration for medication or cystoscopy was discussed. - Female stress urinary incontinence: Previously managed with TOT sling placement. Currently, no significant stress incontinence reported, though occasional leakage occurs when the bladder is overly full. Female Stress Urinary Incontinence: - Continue monitoring for any recurrence of symptoms. [email or web address] Not available 08/15/2025 09:19:40 Plan of Treatment Reminders Order Date Submit Date Provider Last Modified By Organization Details Last Modified Time Details Appointments RECHECK 2025 03:15P Jo-Ann CANNON MD Not available Not available Not available RECHECK 2025 01:00P Jo-Ann CANNON MD Not available Not available Not available Lab urinalysi s panel, auto 2024 [email or web address] [place] [address] With [facility], [address] [place] [address] , [place], [address], 08/15/2025 09:19:49 urinalysi s panel, auto [address] [place] [address] With [facility], [address] [place] [address] , [place], [address], 12/18/2024 09:27:10 culture, urine 2024 025 [facility], [address] [place] [address], [address], 12/19/2024 10:41:47 urinalysi s panel, auto [address] [place] [address] [facility], [address] [place] [address], [address], [place], [address], 11/25/2024 13:17:40 Referral None recorded. Procedures None recorded. Surgeries None recorded. Imaging None recorded. Medication Orders hydrocodo ne 7.5 mg-acetam inophen 325 mg tablet 2024 03 025 [facility], [address] [place], [address], 11/17/2024 14:25:05 Patient TargetsNo targets recorded. Patient Instructions Encounter Date Encounter Id Patient Instructions Last Modified By Organization Details Last Modified Time 04/22/2025 [id number] learning about healthy weight [email or web address] Not available 04/29/2025 10:48:24 - Continue monitoring urinary symptoms and report any changes. - Follow up annually unless symptoms worsen. [email or web address] Not available 04/22/2025 16:39:23 07/29/2025 [id number] - Continue takin g nitrofurantoin as prescribed to prevent UTIs. - Monitor fluid intake, especially before bedtime, to help manage nocturia. - Follow up with geospatial intelligence analyst for diabetes screening results. - Schedule a follow-up appointment in three months or sooner if symptoms worsen. [email or web address] Not available 07/29/2025 13:35:38 Reason for Referral None Reported. Results Created Date Observation Date Name Description Value Unit Range Abnormal Flag Note LastModifiedBy Organization Detail LastModifiedTime 10/29/1910/29/2024 urina lysis panel , auto Unknown Analyte Clean Catch Not Available [address], [place], [address], 10/29/2024 17:03:38 10/29/19 25 10/29/2024 urina lysis panel , auto Unknown Analyte Straw Not Available [address] Shey [address]ester, [place], [address], 10/29/2024 17:03:38 10/29/19 25 10/29/2024 urina lysis panel , auto Unknown Analyte Slight ly Hazy Not Available [address] Shey [address]ester, [place], [address], 10/29/2024 17:03:38 10/29/19 25 10/29/2024 urina lysis panel , auto Unknown Analyte 1.025 Not Available [facility] With [address], [place], [address], 10/29/2024 17:03:38 10/29/19 25 10/29/2024 urina lysis panel , auto Unknown Analyte 1.003- 1.035 Not Available [facility] With [address], [place], [address], 10/29/2024 17:03:38 10/29/19 25 10/29/2024 urina lysis panel , auto Unknown Analyte 5.0 Not Available [facility] With [address], [place], [address], 10/29/2024 17:03:38 10/29/19 25 10/29/2024 urina lysis panel , auto Unknown Analyte 5.0-8. 0 Not Available [facility] With [address], [place], [address], 10/29/2024 17:03:38 10/29/19 25 10/29/2024 urina lysis panel , auto Unknown Analyte Negati ve Not Available [facility] With [address], [place], [address], 10/29/2024 17:03:38 10/29/19 25 10/29/2024 urina lysis panel , auto Unknown Analyte Negati ve Not Available [facility] With [address], [place], [address], 10/29/2024 17:03:38 10/29/19 25 10/29/2024 urina lysis panel , auto Unknown Analyte Negati ve Not Available [facility] With [address] [address] [address], [place], [address], 10/29/2024 17:03:38 10/29/19 25 10/29/2024 urina lysis panel , auto Unknown Analyte Negati ve Not Available [facility] With [address] Shey [address]ester, [place], [address], 10/29/2024 17:03:38 10/29/19 25 10/29/2024 urina lysis panel , auto Unknown Analyte 30 mg/dl (+) Not Available [facility] With [address] She[address]ester, [place], [address], 10/29/2024 17:03:38 10/29/19 25 10/29/2024 urina lysis panel , auto Unknown Analyte Negati ve Not Available [facility] With [address], [place], [address], 10/29/2024 17:03:38 10/29/19 25 10/29/2024 urina lysis panel , auto Unknown Analyte Normal Not Available [facility] With [address], [place], [address], 10/29/2024 17:03:38 10/29/19 25 10/29/2024 urina lysis panel , auto Unknown Analyte Normal Not Available [facility] With [address], [place], [address], 10/29/2024 17:03:38 10/29/19 25 10/29/2024 urina lysis panel , auto Unknown Analyte Negati ve Not Available [facility] With [address] [address], [place], [address], 10/29/2024 17:03:38 10/29/19 25 10/29/2024 urina lysis panel , auto Unknown Analyte Negati ve Not Available [facility] With [address], [place], [address], 10/29/2024 17:03:38 10/29/19 25 10/29/2024 urina lysis panel , auto Unknown Analyte 1 mg/dl Not Available [facility] With [address], [place], [address], 10/29/2024 17:03:38 10/29/19 25 10/29/2024 urina lysis panel , auto Unknown Analyte Normal 1 mg/dl Not Available [facility] With [address] She[address], [place], [address], 10/29/2024 17:03:38 10/29/19 25 10/29/2024 urina lysis panel , auto Unknown Analyte 1 mg/dl (+) Not Available [facility] With [address] Shey [address], [place], [address], 10/29/2024 17:03:38 10/29/19 25 10/29/2024 urina lysis panel , auto Unknown Analyte Negati ve Not Available [facility] With [address], [place], [address], 10/29/2024 17:03:38 10/29/19 25 10/29/2024 urina lysis panel , auto Unknown Analyte Negati ve Not Available [facility] With [address] Kat [address], [place], [address], 10/29/2024 17:03:38 10/29/19 25 10/29/2024 urina lysis panel , auto Unknown Analyte Negati ve Not Available [facility] With [address]t F, [place], [address], 10/29/2024 17:03:38 11/18/19 25 11/17/2024 urina lysis panel , auto Unknown Analyte Clean Catch Not Available [facility] [address] [place] [address], [place], [address], 11/17/2024 12:39:07 11/18/19 25 11/17/2024 urina lysis panel , auto Unknown Analyte Yellow Not Available [facility] [address] [place] [address], [address], 11/17/2024 12:39:07 11/18/19 25 11/17/2024 urina lysis panel , auto Unknown Analyte Clear Not Available [facility] [address] [place] [address], [place], [address], 11/17/2024 12:39:07 11/18/19 25 11/17/2024 urina lysis panel , auto Unknown Analyte 1.[address] [facility] [address] [place] [address], [address], 11/17/2024 12:39:07 11/18/19 25 11/17/2024 urina lysis panel , auto Unknown Analyte 1.003 - 1.030 Not Available [facility] [address] [place] [address], [place], [address], 11/17/2024 12:39:07 11/18/19 25 11/17/2024 urina lysis panel , auto Unknown Analyte 5.[address] [facility] [address] [place] [address], [address], 11/17/2024 12:39:07 11/18/19 25 11/17/2024 urina lysis panel , auto Unknown Analyte 5.0 - 8.[address] [facility] [address] [place] [address], [address], 11/17/2024 12:39:07 11/18/19 25 11/17/2024 urina lysis panel , auto Unknown Analyte 25 Yuli/uL Not Available [facility] [address] [address], [place], [address], 11/17/2024 12:39:07 11/18/19 25 11/17/2024 urina lysis panel , auto Unknown Analyte Negati ve Not Available [facility] [address] [place] [address], [address], 11/17/2024 12:39:07 11/18/19 25 11/17/2024 urina lysis panel , auto Unknown Analyte Negati ve Not Available [facility] [address] [place] [address], [address], 11/17/2024 12:39:07 11/18/19 25 11/17/2024 urina lysis panel , auto Unknown Analyte Negati ve Not Available [facility] [address] [place] [address], [address], 11/17/2024 12:39:07 11/18/19 25 11/17/2024 urina lysis panel , auto Unknown Analyte 30 mg/dL Not Available [facility] [address] [place] [address], [address], 11/17/2024 12:39:07 11/18/19 25 11/17/2024 urina lysis panel , auto Unknown Analyte Negati ve Not Available [facility] [address] [place] [address], [address], 11/17/2024 12:39:07 11/18/19 25 11/17/2024 urina lysis panel , auto Unknown Analyte >1000 mg/dL Not Available [facility] [address] [place] [address], [address], 11/17/2024 12:39:07 11/18/19 25 11/17/2024 urina lysis panel , auto Unknown Analyte Normal Not Available [facility] [address] [place] [address], [address], 11/17/2024 12:39:07 11/18/19 25 11/17/2024 urina lysis panel , auto Unknown Analyte Negati ve Not Available [facility] [address] [place] [address], [address], 11/17/2024 12:39:07 11/18/19 25 11/17/2024 urina lysis panel , auto Unknown Analyte Negati ve Not Available [facility] [address] [place] [address], [address], 11/17/2024 12:39:07 11/18/19 25 11/17/2024 urina lysis panel , auto Unknown Analyte 1 mg/dL Not Available [facility] [address] [place] [address], [address], 11/17/2024 12:39:07 11/18/19 25 11/17/2024 urina lysis panel , auto Unknown Analyte Normal Not Available [facility] [address] [place] [address], [address], 11/17/2024 12:39:07 11/18/19 25 11/17/2024 urina lysis panel , auto Unknown Analyte 1 mg/dL Not Available [facility] [address] [place] [address], [address], 11/17/2024 12:39:07 11/18/19 25 11/17/2024 urina lysis panel , auto Unknown Analyte Negati ve Not Available [facility] [address] [place] [address], [address], 11/17/2024 12:39:07 11/18/19 25 11/17/2024 urina lysis panel , auto Unknown Analyte Trace Not Available [facility] [address] [place] [address] [address], [place], [address], 11/17/2024 12:39:07 11/18/19 25 11/17/2024 urina lysis panel , auto Unknown Analyte Negati ve Not Available [facility] [address] [facility] [address], [place], [address], 11/17/2024 12:39:07 11/24/19 25 11/23/2024 urina lysis panel , auto Unknown Analyte Clean Catch Not Available [facility] With [address], [place], [address], 11/23/2024 16:32:23 11/24/19 25 11/23/2024 urina lysis panel , auto Unknown Analyte Yellow Not Available [facility] With [address], [address], 11/23/2024 16:32:23 11/24/19 25 11/23/2024 urina lysis panel , auto Unknown Analyte Slight ly Cloudy Not Available [facility] [address], [place], [address], 11/23/2024 16:32:23 11/24/19 25 11/23/2024 urina lysis panel , auto Unknown Analyte 1.015 Not Available [facility] [address], [address], 11/23/2024 16:32:23 11/24/19 25 11/23/2024 urina lysis panel , auto Unknown Analyte 1.003 - 1.030 Not Available [facility] [address], [place], [address], 11/23/2024 16:32:23 11/24/19 25 11/23/2024 urina lysis panel , auto Unknown Analyte 5.0 Not Available [facility] [address] [place] [address] Rd [address], [place], [address], 11/23/2024 16:32:23 11/24/19 25 11/23/2024 urina lysis panel , auto Unknown Analyte 5.0 - 8.0 Not Available [facility] With [address], [place], [address], 11/23/2024 16:32:23 11/24/19 25 11/23/2024 urina lysis panel , auto Unknown Analyte Negati ve Not Available [facility] With [address], [place], [address], 11/23/2024 16:32:23 11/24/19 25 11/23/2024 urina lysis panel , auto Unknown Analyte Negati ve Not Available [facility] With [address], [place], [address], 11/23/2024 16:32:23 11/24/19 25 11/23/2024 urina lysis panel , auto Unknown Analyte Negati ve Not Available [facility] [address] [place] [address] [address], [place], [address], 11/23/2024 16:32:23 11/24/19 25 11/23/2024 urina lysis panel , auto Unknown Analyte Negati ve Not Available [facility] With [address], [place], [address], 11/23/2024 16:32:23 11/24/19 25 11/23/2024 urina lysis panel , auto Unknown Analyte Negati ve Not Available [facility] With [address], [place], [address], 11/23/2024 16:32:23 11/24/19 25 11/23/2024 urina lysis panel , auto Unknown Analyte Negati ve Not Available [facility] With [address], [place], [address], 11/23/2024 16:32:23 11/24/19 25 11/23/2024 urina lysis panel , auto Unknown Analyte >1000 mg/dL Not Available [facility] With [address], [place], [address], 11/23/2024 16:32:23 11/24/19 25 11/23/2024 urina lysis panel , auto Unknown Analyte Normal Not Available [facility] With [address], [place], [address], 11/23/2024 16:32:23 11/24/19 25 11/23/2024 urina lysis panel , auto Unknown Analyte Negati ve Not Available [facility] With [address], [place], [address], 11/23/2024 16:32:23 11/24/19 25 11/23/2024 urina lysis panel , auto Unknown Analyte Negati ve Not Available [facility] With [address], [place], [address], 11/23/2024 16:32:23 11/24/19 25 11/23/2024 urina lysis panel , auto Unknown Analyte Normal Not Available [facility] [address] [place] [address] [address], [place], [address], 11/23/2024 16:32:23 11/24/19 25 11/23/2024 urina lysis panel , auto Unknown Analyte Normal Not Available [facility] [address] [place] [address] Rd [address], [place], [address], 11/23/2024 16:32:23 11/24/19 25 11/23/2024 urina lysis panel , auto Unknown Analyte Negati ve Not Available [facility] With [address], [place], [address], 11/23/2024 16:32:23 11/24/19 25 11/23/2024 urina lysis panel , auto Unknown Analyte Negati ve Not Available [facility] [address] [place] [address] [address], [place], [address], 11/23/2024 16:32:23 11/24/19 25 11/23/2024 urina lysis panel , auto Unknown Analyte 50 Rocael/uL Not Available [facility] [address] [place] [address] [address], [place], [address], 11/23/2024 16:32:23 11/24/19 25 11/23/2024 urina lysis panel , auto Unknown Analyte Negati ve Not Available [facility] [address] [place] [address] [address], [place], [address], 11/23/2024 16:32:23 12/18/19 25 2024 URINE CULTU RE urine culture No growth day 3. Not Available [facility] [address] [facility], [place], [address], 2024 12:52:23 12/18/19 25 12/17/2024 urina lysis panel , auto Unknown Analyte Clean Catch Not Available [facility] With [address], [place], [address], 12/17/2024 16:54:04 12/18/19 25 12/17/2024 urina lysis panel , auto Unknown Analyte Yellow Not Available [facility] With [address], [place], [address], 12/17/2024 16:54:04 12/18/19 25 12/17/2024 urina lysis panel , auto Unknown Analyte Clear Not Available [facility] With [address], [place], [address], 12/17/2024 16:54:04 12/18/19 25 12/17/2024 urina lysis panel , auto Unknown Analyte 1.025 Not Available [facility] With [address], [place], [address], 12/17/2024 16:54:04 12/18/19 25 12/17/2024 urina lysis panel , auto Unknown Analyte 1.003 - 1.030 Not Available [facility] With [address], [place], [address], 12/17/2024 16:54:04 12/18/19 25 12/17/2024 urina lysis panel , auto Unknown Analyte 5.0 Not Available [facility] With [address], [place], [address], 12/17/2024 16:54:04 12/18/19 25 12/17/2024 urina lysis panel , auto Unknown Analyte 5.0 - 8.0 Not Available [facility] With [address], [place], [address], 12/17/2024 16:54:04 12/18/19 25 12/17/2024 urina lysis panel , auto Unknown Analyte 75 Yuli/uL Not Available [facility] With [address], [place], [address], 12/17/2024 16:54:04 12/18/19 25 12/17/2024 urina lysis panel , auto Unknown Analyte Negati ve Not Available [facility] With [address], [place], [address], 12/17/2024 16:54:04 12/18/19 25 12/17/2024 urina lysis panel , auto Unknown Analyte Negati ve Not Available [facility] With [address], [place], [address], 12/17/2024 16:54:04 12/18/19 25 12/17/2024 urina lysis panel , auto Unknown Analyte Negati ve Not Available [facility] With [address], [place], [address], 12/17/2024 16:54:04 12/18/19 25 12/17/2024 urina lysis panel , auto Unknown Analyte Negati ve Not Available [facility] With [address], [place], [address], 12/17/2024 16:54:04 12/18/19 25 12/17/2024 urina lysis panel , auto Unknown Analyte Negati ve Not Available [facility] With [address], [place], [address], 12/17/2024 16:54:04 12/18/19 25 12/17/2024 urina lysis panel , auto Unknown Analyte >1000 mg/dL Not Available [facility] With [address], [place], [address], 12/17/2024 16:54:04 12/18/19 25 12/17/2024 urina lysis panel , auto Unknown Analyte Normal Not Available [facility] With [address], [place], [address], 12/17/2024 16:54:04 12/18/19 25 12/17/2024 urina lysis panel , auto Unknown Analyte Negati ve Not Available [facility] With [address], [place], [address], 12/17/2024 16:54:04 12/18/19 25 12/17/2024 urina lysis panel , auto Unknown Analyte Negati ve Not Available [facility] With [address], [place], [address], 12/17/2024 16:54:04 12/18/19 25 12/17/2024 urina lysis panel , auto Unknown Analyte Normal Not Available [facility] With [address], [place], [address], 12/17/2024 16:54:04 12/18/19 25 12/17/2024 urina lysis panel , auto Unknown Analyte Normal Not Available [facility] With [address], [place], [address], 12/17/2024 16:54:04 12/18/19 25 12/17/2024 urina lysis panel , auto Unknown Analyte 1 mg/dL Not Available [facility] With [address], [place], [address], 12/17/2024 16:54:04 12/18/19 25 12/17/2024 urina lysis panel , auto Unknown Analyte Negati ve Not Available [facility] With [address], [place], [address], 12/17/2024 16:54:04 12/18/19 25 12/17/2024 urina lysis panel , auto Unknown Analyte Negati ve Not Available [facility] With [address], [place], [address], 12/17/2024 16:54:04 12/18/19 25 12/17/2024 urina lysis panel , auto Unknown Analyte Negati ve Not Available [facility] With [address], [place], [address], 12/17/2024 16:54:04 07/29/20 25 07/29/2025 urina lysis panel , auto Unknown Analyte Clean Catch Not Available [facility] [address] [address] [address], [place], [address], 07/29/2025 13:16:34 07/29/20 25 07/29/2025 urina lysis panel , auto Unknown Analyte Yellow Not Available [facility] With [address] [address] Paige Lester, [place], [address], 07/29/2025 13:16:34 07/29/20 25 07/29/2025 urina lysis panel , auto Unknown Analyte Clear Not Available [facility] [place] [address] [address], [place], [address], 07/29/2025 13:16:34 07/29/20 25 07/29/2025 urina lysis panel , auto Unknown Analyte 1.005 Not Available [facility] [place] [address] [address], [place], [address], 07/29/2025 13:16:34 07/29/20 25 07/29/2025 urina lysis panel , auto Unknown Analyte 1.003 - 1.030 Not Available [facility] [address] Kat F, [place], [address], 07/29/2025 13:16:34 07/29/20 25 07/29/2025 urina lysis panel , auto Unknown Analyte 7.0 Not Available [facility] [address] Kat F, [place], [address], 07/29/2025 13:16:34 07/29/20 25 07/29/2025 urina lysis panel , auto Unknown Analyte 5.0 - 8.0 Not Available [facility] [address] Kat F, [place], [address], 07/29/2025 13:16:34 07/29/20 25 07/29/2025 urina lysis panel , auto Unknown Analyte Negati ve Not Available [facility] [address] Kat F, [place], [address], 07/29/2025 13:16:34 07/29/20 25 07/29/2025 urina lysis panel , auto Unknown Analyte Negati ve Not Available [facility] [address] Kat F, [place], [address], 07/29/2025 13:16:34 07/29/20 25 07/29/2025 urina lysis panel , auto Unknown Analyte Negati ve Not Available [facility] [address] Kat F, [place], [address], 07/29/2025 13:16:34 07/29/20 25 07/29/2025 urina lysis panel , auto Unknown Analyte Negati ve Not Available [facility] [address] Shey Lester, [place], [address], 07/29/2025 13:16:34 07/29/20 25 07/29/2025 urina lysis panel , auto Unknown Analyte Negati ve Not Available [facility] [address] Shey Lester, [place], [address], 07/29/2025 13:16:34 07/29/20 25 07/29/2025 urina lysis panel , auto Unknown Analyte Negati ve Not Available [facility] [address], [place], [address], 07/29/2025 13:16:34 07/29/20 25 07/29/2025 urina lysis panel , auto Unknown Analyte >1000 mg/dL Not Available [facility] [address], [place], [address], 07/29/2025 13:16:34 07/29/20 25 07/29/2025 urina lysis panel , auto Unknown Analyte Normal Not Available [facility] [address], [place], [address], 07/29/2025 13:16:34 07/29/20 25 07/29/2025 urina lysis panel , auto Unknown Analyte Negati ve Not Available [facility] [address], [place], [address], 07/29/2025 13:16:34 07/29/20 25 07/29/2025 urina lysis panel , auto Unknown Analyte Negati ve Not Available [facility] [address], [place], [address], 07/29/2025 13:16:34 07/29/20 25 07/29/2025 urina lysis panel , auto Unknown Analyte Normal Not Available [facility] [address] Shey Lester, [place], [address], 07/29/2025 13:16:34 07/29/20 25 07/29/2025 urina lysis panel , auto Unknown Analyte Normal Not Available [facility] [address] Shey Lester, [place], [address], 07/29/2025 13:16:34 07/29/20 25 07/29/2025 urina lysis panel , auto Unknown Analyte Negati ve Not Available [facility] [address] Shey Lester, [place], [address], 07/29/2025 13:16:34 07/29/20 25 07/29/2025 urina lysis panel , auto Unknown Analyte Negati ve Not Available [facility] [address] Shey Lester, [place], [address], 07/29/2025 13:16:34 07/29/2007/29/2025 urina lysis panel , auto Unknown Analyte Negati ve Not Available [facility] [address] Shey Lester, [place], [address], 07/29/2025 13:16:34 07/29/2007/29/2025 urina lysis panel , auto Unknown Analyte Negati ve Not Available [facility] [address] Shey Lester, [place], [address], 07/29/2025 13:16:34 Result Notes None recorded. Problems No Known Problems Procedures Surgical History Date Name Laterality Status Provider Name and Address Organization Details Recorded Time Post Void Residual; Ultrasound completed Oksana Porras [facility] 11/23/2024 16:43:00 Imaging Results None recorded. Procedure Notes None recorded. Medical Equipment None Reported. Allergies Allergen ID Allergen Name Allergen Category Reaction Reaction Severity Criticality Documentation Date Start Date Code Code System Note Provider Name and Address Organization Details Recorded Time 358869 Product containin g penicilli n (product) medicatio n Not available Not available Not available 02/18/2018 60213 8001 SNOMED Petra Lopezles [facility] 8 15:24:44 723886 penicilli n V Not available other Not available low 07/29/20252022 7984 RxNorm rash Not Available [employer] - prod 05:55:22 612511 dapaglifl ozin propanedi ol medicatio n diarrhea Not available low 07/29/20252024 08890 66 RxNorm Not Available [employer] - prod 05:56:33 584498 metoprolo l Not available diarrhea Not available low 07/29/20252024 6918 RxNorm Not Available [employer] prod 5 05:56:33 Medications Name Sig Start Date Stop [...] Updated DateTime 11/23/2024 160.02 cm 24.6 kg/m2 51819.34 g Oksana Porras [facility] 11/23/2024 16:32:09 Date Recorded Body height Body mass index (BMI) Body weight Provider Name and Address Organization Details Last Updated DateTime 12/17/2024 160.02 cm 24.6 kg/m2 42597.34 g Blade Cortezt [facility] 12/17/2024 16:53:18 Date Recorded Body height Body mass index (BMI) Body weight Provider Name and Address Organization Details Last Updated DateTime 04/22/2025 160.02 cm 20.2 kg/m2 30483.53 g Blade Cortezt [facility] 04/22/2025 16:43:14 Date Recorded Body height Body mass index (BMI) Body weight Provider Name and Address Organization Details Last Updated DateTime 07/29/2025 160.02 cm 20.2 kg/m2 64286.53 g Ebony Brett [facility] 07/29/2025 13:16:07 Social History Question Answer Notes LastModified by Organizat ion Details LastModified Time Tobacco Smoking Status Former Smoker Blade Cortezt [facility] 10/29/2024 17:00:54 Marital Status [email or web address] Informatio n not available 02/18/2018 What Was The Date Of Your Most Recent Tobacco Screening? 04/22/2025 [email or web address] Information not available 04/22/2025 Has Tobacco Cessation Counseling Been Provided? Yes [email or web address] Information not available 02/18/2018 On What Date Was Tobacco Cessation Counseling Provided? 02/26/2018 [email or web address] Information not available 02/26/2018 Sex: Unknown Functional Status Question Answer Note LastModified by Organizat ion Details LastModified Time What is your level of alcohol consumption? Occasional [email or web address] Information not available 02/18/2018 Mental Status None recorded. Family History Relationship Description Onset Age of this Age Resolved Age Notes LastModified by Organization Details LastModified Time Mother Family history of malignant neoplasm [email or web address] Not available 02/18 15:26:02 Maternal Grandmother Family history of malignant neoplasm Not available 02/18 15:26:10 Unspecified Relation Diabetes mellitus [email or web address] Not available 2024 16:59:53 Unspecified Relation Kidney disease [email or web address] Not available 2024 17:00:06 Medical History Condition Response Kidney Stones Y Heart Arrhythmia Y Depression Y Pacemaker Y Anxiety Disorder Y Arthritis Y Acid Reflux (GERD) Y Allergies/Hayfever Y Heart Conditions Y Sleep Apnea Y Gynecological HistoryNo gynecological history recorded. Obstetrics History GPAL:G 0 P 0 0 0 0 Past Encounters Encounter ID Performer Location Encounter Start Date Encounter Closed Date Diagnosis/Indication Diagnosis SNOMED-CT Code Diagnosis ICD10 Code Diagnosis IMO Codes Diagnosis Note [id number] LEO JOSE MD [facility] [address] [place] [address] 02/18/2018 14:18:27 02/18/2018 15:58:52 Normal 09487653 Z34.90 Kidney stone 30503247 N2 0.0 Ureteric stone 64758651 N20.1 [id number] LEO JOSE MD [facility] [address] [place] [address] 02/19/2018 13:56:01 02/19/2018 15:02:10 Ureteric stone 69272259 N20.1 [id number] LEO JOSE MD SURGERY SCHEDULE [address] [place] [address] 02/24/2018 07:20:26 02/24/2018 07:24:23 Ureteric stone 54465490 N20.1 [id number] LEO JOSE MD [facility] [address] [place] [address] 02/26/2018 13:58:19 02/26/2018 14:38:30 Kidney stone 49926720 N20.0 [id number] ANGELI CANNON MD [facility] [address] [place] [phone] 10/29/2024 15:58:18 10/29/2024 19:05:50 Female urinary stress incontinence 66592923 N39.3 Recurrent urinary tract infection 883407226 N39.0 [id number] ANGELI CANNON MD SURGERY SCHEDULE [address] [place] [address] 11/17/2024 11:55:00 11/17/2024 11:56:20 Postoperative pain 710409370 G89.18 [id number] ANGELI CANNON MD [facility] [address] [place] [address] 11/23/2024 16:25:47 11/23/2024 16:42:39 Female urinary stress incontinence 23497713 N39.3 Recurrent urinary tract infection 707438924 N39.0 [id number] ANGELI CANNON MD [facility] [address],[place] [address] 12/17/2024 16:37:18 12/18/2024 14:38:12 Urinary tract infectious disease 65000516 N39.0 Female uri nary stress incontinence 78146078 N39.3 [id number] ANGELI CANONN MD [facility] [place] [address],[place] [phone] 04/22/2025 16:00:22 04/30/2025 04:11:46 Female urinary stress incontinence 02016836 N39.3 7260072 - Monitor TOT sling effectiven ess. - Consider gentle dilation if urination difficulty worsens. Delay when starting to pass urine 9857035 R39.11 338653 - Monitor urination difficulty and consider interventi on if symptoms persist. [id number] ANGELI CANNON MD [facility] [address],[place] [address] 07/29/2025 13:02:00 08/16/2025 04:18:11 Increased frequency of urination 172645826 R35.0 27761 - Consider medication for overactive bladder if symptoms persist. - Cystoscopy may be performed to evaluate bladder health if necessary. Nocturia 061405986 R35.1 86482 - Monitor fluid intake, especially before bedtime, to manage symptoms. Health Concerns Section Related Observation LastModified by Organization Detai ls LastModified Time None Recorded Concern Status LastModified by Organization Details LastModified Time None Recorded Advance Directives Directive None Recorded Payers Insurance Date Sequence Insurance Name Policy Number Policy Alcantara Covered Member ID Alcantara Member ID Guarantor Name 11/17/2024 2 [place] [id number] Alysa Mancini [id number] Alysa Mancini 11/17/2024 GENERIC INSURANCE - MOVED-HOLD Alysa Mancini 08/16/2025 1 [place] [id number] 3 Alysa Mancini [id number] Alysa Mancini Notes Date Note Type [...] gross hematuria or dysuria. ANGELI CANNON MD [address] [place] [address], [phone], [facility] 12/06/2024 14:19:54 12/17/2024 text/html 38-year-old female in [...] gross hematuria or dysuria. ANGELI CANNON MD [address] [place] [address], [phone], [facility] 12/27/2024 08:17:31 04/22/2025 text/html The patient is [...] note prior to signature. ANGELI CANNON MD [address] [place] [address], [phone], [facility] 04/29/2025 10:48:37 07/29/2025 text/html The patient is [...] awaiting diabetes screening results ordered by her geospatial intelligence analyst. Documentation on this patient encounter was supported using voice-enabled Al technology. The patient consented to recording for the purpose of documenting the encounter. Provider reviewed content of the generated note prior to signature. - Urine analysis: No signs of infection ANGELI CANNON MD [address] [place], [address], [facility] 08/15/2025 09:20:16 OBGyn Episode No OBEpisode recorded.
--- OUTSIDE RECORDS SUMMARY | 2025-08-20 18:22 | XMS_ITS | Encounter Summary ---
Author Organization [facility] Address [address] [place] [address] Care Team Providers Care Spanish Tutor Name Role Phone Sandro Sebastian MD Primary Care Provider [phone] Reason for Visit * Reason Onset Date Comments HCN Clinical Concern/Question 06/08/2025 Encounter Details Date Type Department Care Team ([facility] st Contact Info) Description 06/08/2025 Telephone [facility] [place] [address], [address] [place] [address] Galo Leung MD [address] [place] [address] HCN Clinical Concern/Question Social History [...] results with them. Best contact number: Other: [phone] or [phone] Optimal time of day to reach caller: ANYTIME Additional comments/information from caller: None Note: Please do not reply to this message. Follow-up communication and further actions as a result of this message need to be communicated with the patient directly, if the patient is not active onMyChart. If the patient is active on MyChart, they will receive notification of the communication/outcome via [employer]. documented in this encounter Plan of Treatment Upcoming Encounters Date Type Department Care Team ([facility] st Contact Info) Description 08/24/2025 2:20 PM EST Office Visit [facility] [address], [address] [place] [address] Galo Leung MD [address] [place] [address] documented as of this encounter [...] documented as of this encounter Care Teams Spanish Tutor Relationship Specialty Start Date End Date Sandro Sebastian MD [address] [place] [address] PCP - General 01/27/21 documented as of this encounter
--- OUTSIDE RECORDS SUMMARY | 2025-08-20 18:22 | XMS_ITS | Data Portability ---
Author Organization [facility] Address [address] [place] [address] Assessment No assessment recorded. Plan of Treatment Reminders Order Date Submit Date Provider Last Modified By Organization Details Last Modified Time Details Appointments None recorded. Lab vaginal pathogens panel, SO+probe, vaginal fluid 2021 022 [place] [facility], [address], [address], [place], [address], 2 03:07:40 culture, urine 2021 022 [place] [facility], [address], [address], [place], [address], 2 03:07:40 urinalysis , dipstick 2021 022 clarita [place] [employer], [address] [place] [address] , [place], [address], 2 15:49:31 Referral None recorded. Procedures None recorded. Surgeries None recorded. Imaging MAMMO, diagnostic , digital, bilateral 2021 022 [facility] (Scheduling), [address] [place], [address], 2 15:01:21 US, breast, bilateral 2021 023 [facility] (Scheduling), [address] [place], [address], 3 05:01:50 Medication Orders None recorded. Patient TargetsNo targets recorded. Patient Instructions Encounter Date Encounter Id Patient Instructions Last Modified By Organization Details Last Modified Time 04/16/2022 [id number] medical record request* - please send pts Turnaround Planner and Ob records Not available 05/28/2022 10:43:04 painful urinatio n (dysuria): care instructions clarita Not available 04/16/2022 17:48:35 Reason for Referral None Reported. Results Created Date Observation Date Name Description Value Unit Range Abnormal Flag Note LastModifiedBy Organization Detail LastModifiedTime 04/16/20 22 04/17/2022 NUA B VAGIN ITIS PLUS (VG+) atopobium vaginae Low - 0 score Not Available [facility] ([facility]) [address] [facility], [place], [address], 04/18/2022 03:07:39 04/16/20 22 04/17/2022 [facility] B VAGIN ITIS PLUS (VG+) bvab 2 Low - 0 score Not Available [facility] ([facility]) [address] [facility], [place], [address], 04/18/2022 03:07:39 04/16/20 22 04/17/2022 [email or web address]A B VAGIN ITIS PLUS (VG+) megasphaera 1 [...] Drug Admin istra tion. Not Available [facility] ([facility]) [address] [facility], [place], [address], 04/18/2022 03:07:39 04/16/20 22 04/17/2022 NUSWA B VAGIN ITIS PLUS (VG+) shira albicans, SO Negati ve negati ve Not Available [facility] ([facility]) [address] [facility], [place], [address], 04/18/2022 03:07:39 04/16/20 22 04/17/2022 NUSWA B VAGIN ITIS PLUS (VG+) shira glabrata, SO Negati ve negati ve Not Available [facility] ([facility]) [address] [facility], [place], [address], 04/18/2022 03:07:39 04/16/20 22 04/18/2022 NUSWA B VAGIN ITIS PLUS (VG+) trich vag by SO Negati ve negati ve Not Available [facility] ([facility]) [address] [facility], [place], [address], 04/18/2022 03:07:39 04/16/20 22 04/18/2022 NUSWA B VAGIN ITIS PLUS (VG+) chlamydia trachomatis, SO Negati ve negati ve Not Available [facility] ([facility]) [address] [facility], [place], [address], 04/18/2022 03:07:39 04/16/20 22 04/18/2022 NUSWA B VAGIN ITIS PLUS (VG+) neisseria gonorrhoeae, SO Negati ve negati ve Not Available [facility] ([facility]) [address] [facility], [place], [address], 04/18/2022 03:07:39 04/16/20 22 04/17/2022 URINE CULTU RE, ROUTI NE urine culture, routine Final report Not Available [facility] ([facility]) [address] [place], [address], 04/18/2022 03:07:40 04/16/20 22 04/17/2022 URINE CULTU RE, ROUTI NE result 1 No growth Not Available [facility] ([facility]) [address] [facility], [place], [address], 04/18/2022 03:07:40 04/16/20 22 04/16/2022 urina lysis , dipst ick Leukocytes Negati ve Not Available [employer] [address] [place] [address] , [place], [address], 04/16/2022 15:52:56 04/16/20 22 04/16/2022 urina lysis , dipst ick Nitrite negati ve Not Available [facility]/[address] , [place], [address], 04/16/2022 15:52:56 04/16/20 22 04/16/2022 urina lysis , dipst ick Urobilinogen 1 Not Available [facility] [employer] [address] [place] [address] , [place], [address], 04/16/2022 15:52:56 04/16/20 22 04/16/2022 urina lysis , dipst ick Protein Negati ve Not Available [facility] [address] [place] [address] , [place], [address], 04/16/2022 15:52:56 04/16/20 22 04/16/2022 urina lysis , dipst ick pH 7.0 Not Available [facility]/[address] , [place], [address], 04/16/2022 15:52:56 04/16/20 22 04/16/2022 urina lysis , dipst ick Blood Negati ve Not Available [facility] [address] [place] [address] , [place], [address], 04/16/2022 15:52:56 04/16/20 22 04/16/2022 urina lysis , dipst ick Specific Brandon 1.[address] [facility] Mortgage [employer] [address] [place] [address] , [place], [address], 04/16/2022 15:52:56 04/16/20 22 04/16/2022 urina lysis , dipst ick Ketone Negati ve Not Available [employer] [address] [place] [address] , [place], [address], 04/16/2022 15:52:56 04/16/20 22 04/16/2022 urina lysis , dipst ick Bilirubin Negati ve Not Available [facility] [address] [place] [address] , [place], [address], 04/16/2022 15:52:56 04/16/20 22 04/16/2022 urina lysis , dipst ick Glucose Negati ve Not Available [facility] [address] [place] [address] , [place], [address], 04/16/2022 15:52:56 04/16/20 22 04/16/2022 urina lysis , dipst ick Appearance Slight ly Cloudy Not Available [facility] [address] [place] [address] , [place], [address], 04/16/2022 15:52:56 04/16/20 22 04/16/2022 urina lysis , dipst ick Color Pale Yellow Not Available [employer] [address] [place] [address] , [place], [address], 04/16/2022 15:52:56 05/04/20 22 05/03/2022 MAMMO , diagn ostic , digit al, bilat eral No observ ation record ed. [facility] (Radiology) [address] [place], [address], 05/08/2022 14:51:58 05/07/20 22 05/03/2022 , deloris rojas No observ ation record ed. [facility] (Radiology) [address] [place], [address], 05/08/2022 14:51:59 Result Notes None recorded. Problems No Known Problems Procedures Surgical History Date Name Laterality Status Provider Name and Address Organization Details Recorded Time Date of Last Pap Smear completed [facility] 10/10/2022 16:03:01 extraction of wisdom tooth completed [facility] 04/16/2022 15:00:12 Unlisted px dentalvlr strux completed [facility] 04/16/20 15:00:22 lumpectomy of breast completed [facility] 04/16/2022 15:00:35 kidney stone analysis completed [facility] 04/16/2022 15:00:47 Imaging Results None recorded. Procedure Notes None recorded. Medical Equipment None Reported. Allergies Allergen ID Allergen Name Allergen Category Reaction Reaction Severity Criticality Documentation Date Start Date Code Code System Note Provider Name and Address Organization Details Recorded Time 734852 Product containin g penicilli n (product) medicatio n hives mild low 04/16/2022 93607 8001 SNOMED [facility] 2 14:51:19 Medications Name Sig Start Date [...] completed Not Available Not Available Not Available [facility] 10 billion cell-200 mg capsule TAKE 1 CAPSULE BY MOUTH EVERY MORNING 04/16 completed Not Available Not Available Not Available Vitals Date Recorded Body weight Pain severity - 0-10 verbal numeric rating [Score] - Reported Body mass index (BMI) Body height Systolic And Diastolic Provider Name and Address Organization Details Last Updated DateTime 04/16/2022 33765.3 g 0 29.4 kg/m2 162.56 cm 112/68 [...] ICD10 Code Diagnosis IMO Codes Diagnosis Note [id number] DO Sanya Ayala 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 7 [facility] LESIA [place] [address] 04/16/2022 14:33:42 04/16/2022 15:47:31 Patient medical record not available [id number] Z76.89 Vaginal discharge 575171 006 N89.8 Dysuria 08485858 R30.9 Vaginal odor 001036256 N 89.8 Mass of right breast 145 0584686 6591937 N63.10 suspect fibroadeno ma Health Concerns Section Related Observation LastModified by Organization Detai ls LastModified Time None Recorded Concern Status LastModified by Organization Details LastModified Time None Recorded Advance Directives Directive None Recorded Payers Insurance Date Sequence Insurance Name Policy Number Policy Alcantara Covered Member ID Alcantara Member ID Guarantor Name 04/23/2022 1 [place] [id number] 3 Alysa Mancini [id number] Alysa Mancini Notes Date Note Type [...] an issue for a long time. Seeing post secondary professional form [facility] 13yo then after having children had irregular period. Nexplanon placed in May 2021 - had it removed in January 2022. Will continue to monitor. 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 Seeing a new counselor at [place]. Part of an IOP through [place]. Has complicated mental health history - major depressive disorder, anxiety, borderline personality disorder, possibly bipolar. 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 Reports having [...] and Propanolol. Dr. Sung Sebastian - in [place] - is primary care physician. >25 minutes visits with >75% face to face interview. Nevaeh Rajan, DO [address], [place], [address], [place] - [facility] 04/19/2022 15:54:27 OBGyn Episode Ob Episode Information Episode Created Date Number of Fetuses Patient Bloodtype Patient rh Status Prepregnancy Weight lbs Domestic Partner Domestic Partner Phone Father Name Rubber Grinder Status 10/04/19 23 1 CLOSED Fetus Data First Name Last Name Admitted to NICU Weight (g) Sex Living Outcome Pediatric Complications Fetus ID Race Codes Race Delivery [place] [address] Vaginal Bran Calculation Initial Bran Date Initial [...] Comments 1 Regional- idural 37 stillborn at [place] [facility] no repair needed. Arrived c/o DFM Discharge Information Feeding Method Contraceptive Method Maternal HG B and HCT Levels
--- OUTSIDE RECORDS SUMMARY | 2025-08-20 18:22 | XMS_ITS | Encounter Summary ---
Author Organization [facility] Address [address] [place] [address] Care Team Providers Care Skatesman Name Role Phone Sandro Sebastian MD Primary Care Provider [phone] Encounter Details Date Type Department Care Team (Late Contact Info) Description 08/20/2025 Orders Only [facility] [place] [facility] [address] [facility], [address] [place] [address] Nicole Ferrell [phone] Social History Tobacco Use Types Packs/Day Years [...] Description 08/24/2025 2:20 PM EST Office Visit [facility] [address] , [address] [place] [address] Galo Leung MD [address] [place] [address] documented as of this encounter Visit Diagnoses [...] documented as of this encounter Care Teams Skatesman Relationship Specialty Start Date End Date Sandro Sebastian MD [address] [place] [address] PCP - General 01/27/21 documented as of this encounter
--- OUTSIDE RECORDS SUMMARY | 2025-08-20 18:22 | XMS_ITS | Clinical Summary ---
Author Organization [facility] Address [address] [facility] [address] [place] [address] Care Team Providers Care Racing Manager Name Role Phone Unavailable Primary Care Provider Unavailabl e Social History Tobacco Use Types Packs/Day Years Used Date Smoking Tobacco: Never Assessed Comments Unknown Sex and Gender Information Value Date Recorded Sex Assigned at Not on file Legal Sex Female 11:26 AM EDT Gender Identity Not on file Sexual Orientation Not on file Plan of Treatment Not on file
--- OUTSIDE RECORDS SUMMARY | 2025-08-20 18:22 | XMS_ITS | Continuity of Care Document ---
Author Organization [facility] Address [address] [place] [address] [place] [address] Care Team Providers Care Wet Chemistry Analyst Name Role Phone ADITI SALOMON Primary Care Provider Assessment Encounter Date Assessment Date Assessment LastModified by Organization Details LastModified Time 07/29/2025 07/29/2025 - 39-year-old female with a [...] Continue monitoring for any recurrence of symptoms. [email or web address] Not available 08/15/2025 09:19:40 Plan of Treatment Reminders Order Date Submit Date Provider Last Modified By Organization Details Last Modified Time Details Appointments RECHECK 2025 03:15P Jo-Ann CANNON MD Not available Not available Not available RECHECK 2025 01:00P Jo-Ann CANNON MD Not available Not available Not available Lab urinalysi s panel, auto 2024 025 [email or web address] [facility] [place] [facility], [address] [place] [address] , [address], [place], [address], 08/15/2025 09:19:49 Referral None recorded. Procedures None recorded. Surgeries None recorded. Imaging None recorded. Medication Orders None recorded. Patient TargetsNo targets recorded. Patient Instructions Encounter Date Encounter Id Patient Instructions Last Modified By Organization Details Last Modified Time 07/29/2025 [id number] - Continue takin g nitrofurantoin as prescribed to prevent UTIs. - Monitor fluid intake, especially before bedtime, to help manage nocturia. - Follow up with ski top trimmer for diabetes screening results. - Schedule a follow-up appointment in three months or sooner if symptoms worsen. [email or web address] Not available 07/29/2025 13:35:38 Reason for Referral None Reported. Results Created Date Observation Date Name Description Value Unit Range Abnormal Flag Note LastModifiedBy Organization Detail LastModifiedTime 07/29/2007/29/2025 urina lysis panel , auto Unknown Analyte Clean Catch Not Available [facility] With [address], [place], [address], 07/29/2025 13:16:34 07/29/2007/29/2025 urina lysis panel , auto Unknown Analyte Yellow Not Available [facility] [address]y [address], [place], [address], 07/29/2025 13:16:34 07/29/20 25 07/29/2025 urina lysis panel , auto Unknown Analyte Clear Not Available [facility] With [address], [place], [address], 07/29/2025 13:16:34 07/29/20 25 07/29/2025 urina lysis panel , auto Unknown Analyte 1.005 Not Available [facility] With [address], [place], [address], 07/29/2025 13:16:34 07/29/20 25 07/29/2025 urina lysis panel , auto Unknown Analyte 1.003 - 1.030 Not Available [address] Shey [address], [place], [address], 07/29/2025 13:16:34 07/29/20 25 07/29/2025 urina lysis panel , auto Unknown Analyte 7.0 Not Available [facility] [place] [facility] [address]y [address], [place], [address], 07/29/2025 13:16:34 07/29/20 25 07/29/2025 urina lysis panel , auto Unknown Analyte 5.0 - 8.0 Not Available [facility] [address], [place], [address], 07/29/2025 13:16:34 07/29/2007/29/2025 urina lysis panel , auto Unknown Analyte Negati ve Not Available [facility] With [address], [place], [address], 07/29/2025 13:16:34 07/29/20 25 07/29/2025 urina lysis panel , auto Unknown Analyte Negati ve Not Available [facility] With [address] She[address], [place], [address], 07/29/2025 13:16:34 07/29/20 25 07/29/2025 urina lysis panel , auto Unknown Analyte Negati ve Not Available [facility] [address], [place], [address], 07/29/2025 13:16:34 07/29/20 25 07/29/2025 urina lysis panel , auto Unknown Analyte Negati ve Not Available [facility] [address], [place], [address], 07/29/2025 13:16:34 07/29/20 25 07/29/2025 urina lysis panel , auto Unknown Analyte Negati ve Not Available [facility] [place] With [address], [place], [address], 07/29/2025 13:16:34 07/29/20 25 07/29/2025 urina lysis panel , auto Unknown Analyte Negati ve Not Available [facility] [address], [place], [address], 07/29/2025 13:16:34 07/29/20 25 07/29/2025 urina lysis panel , auto Unknown Analyte >1000 mg/dL Not Available [facility] [address], [place], [address], 07/29/2025 13:16:34 07/29/20 25 07/29/2025 urina lysis panel , auto Unknown Analyte Normal Not Available [facility] [address], [place], [address], 07/29/2025 13:16:34 07/29/20 25 07/29/2025 urina lysis panel , auto Unknown Analyte Negati ve Not Available [facility] [address], [place], [address], 07/29/2025 13:16:34 07/29/20 25 07/29/2025 urina lysis panel , auto Unknown Analyte Negati ve Not Available [facility] [address], [place], [address], 07/29/2025 13:16:34 07/29/20 25 07/29/2025 urina lysis panel , auto Unknown Analyte Normal Not Available [facility] [address], [place], [address], 07/29/2025 13:16:34 07/29/20 25 07/29/2025 urina lysis panel , auto Unknown Analyte Normal Not Available [facility] [address], [place], [address], 07/29/2025 13:16:34 07/29/20 25 07/29/2025 urina lysis panel , auto Unknown Analyte Negati ve Not Available [facility] With [address], [place], [address], 07/29/2025 13:16:34 07/29/20 25 07/29/2025 urina lysis panel , auto Unknown Analyte Negati ve Not Available [facility] [address], [place], [address], 07/29/2025 13:16:34 07/29/2007/29/2025 urina lysis panel , auto Unknown Analyte Negati ve Not Available [facility] With [address], [place], [address], 07/29/2025 13:16:34 07/29/2007/29/2025 urina lysis panel , auto Unknown Analyte Negati ve Not Available [facility] With [address], [place], [address], 07/29/2025 13:16:34 Result Notes None recorded. Problems No Known Problems Procedures Surgical History Date Name Laterality Status Provider Name and Address Organization Details Recorded Time Post Void Residual; Ultrasound completed Oksana Vern [facility] 11/23/2024 16:43:00 Imaging Results None recorded. Procedure Notes None recorded. Medical Equipment None Reported. Allergies Allergen ID Allergen Name Allergen Category Reaction Reaction Severity Criticality Documentation Date Start Date Code Code System Note Provider Name and Address Organization Details Recorded Time 969640 Product containin g penicilli n (product) medicatio n Not available Not available Not available 02/18/2018 02513 8001 SNOMED Petra Duran cisneros [facility] 8 15:24:44 507096 penicilli n V Not available other Not available low 07/29/20252022 7984 RxNorm rash Not Available amilcar - External Data Service - [facility] 05:55:22 095964 dapaglifl ozin propanedi ol medicatio n diarrhea Not available low 07/29/20252024 78235 66 RxNorm Not Available formerly [facility] External Data Service - [facility] 5 05:56:33 198402 metoprolo l Not available diarrhea Not available low 07/29/20252024 6918 RxNorm Not Available formerly [facility] External Data Service - [facility] 05:56:33 Medications Name Sig Start Date Stop [...] Updated DateTime 07/29/2025 160.02 cm 20.2 kg/m2 94486.53 g Ebony West [facility] 07/29/2025 13:16:07 Social History Question Answer Notes LastModified by Organizat ion Details LastModified Time Tobacco Smoking Status Former Smoker Blade Toni [facility] 10/29/2024 17:00:54 Marital Status Informatio n not available 02/18/2018 What Was The Date Of Your Most Recent Tobacco Screening? 04/22/2025 [email or web address] Information not available 04/22/2025 Has Tobacco Cessation Counseling Been Provided? Yes [email or web address] Information not available 02/18/2018 On What Date Was Tobacco Cessation Counseling Provided? 02/26/2018 [email or web address] Information not available 02/26/2018 Sex: Unknown Functional Status Question Answer Note LastModified by Organizat ion Details LastModified Time What is your level of alcohol consumption? Occasional [email or web address] Information not available 02/18/2018 Mental Status None recorded. Family History Relationship Description Onset Age of this Age Resolved Age Notes LastModified by Organization Details LastModified Time Mother Family history of malignant neoplasm [email or web address] Not available 02/18 15:26:02 Maternal Grandmother Family history of malignant neoplasm [email or web address] Not available 02/18 15:26:10 Unspecified Relation Diabetes [...] ICD10 Code Diagnosis IMO Codes Diagnosis Note [id number] ANGELI CANNON MD [facility] [address] [address] 07/29/2025 13:02:00 08/16/2025 04:18:11 Increased frequency of urination 317842674 R35.0 16793 - Consider medication for overactive bladder if symptoms persist. - Cystoscopy may be performed to evaluate bladder health if necessary. Nocturia 714166082 R35.1 30204 - Monitor fluid intake, especially before bedtime, to manage symptoms. Health Concerns Section Related Observation LastModified by Organization Detai ls LastModified Time None Recorded Concern Status LastModified by Organization Details LastModified Time None Recorded Payers Encounter Date Sequence Insurance Name Policy Number Policy Alcantara Covered Member ID Alcantara Member ID Guarantor Name 07/29/2025 1 [place] [id number] 3 Alysa Mancini [id number] Alysa Mancini Notes Date Note Type Note Provider Name and Address Organization Details Recorded Time 07/29/2025 text/html The patient is a 39-year-old [...] awaiting diabetes screening results ordered by her ski top trimmer. Documentation on this patient encounter was supported using voice-enabled Al technology. The patient consented to recording for the purpose of documenting the encounter. Provider reviewed content of the generated note prior to signature. - Urine analysis: No signs of infection ANGELI CANNON MD [address] [place] [address], [address], [facility] 08/15/2025 09:20:16 OBGyn Episode No OBEpisode recorded.
--- OUTSIDE RECORDS SUMMARY | 2025-08-20 18:22 | XMS_ITS | Encounter Summary ---
Author Organization [facility] Address [address] [place] [address] Care Team Providers Care Rustic Fence Builder Name Role Phone Sandro Sebastian MD Primary Care Provider [phone] Encounter Details Date Type Department Care Team (Late Contact Info) Description 11/22/2023 Lab Requisition [facility] [address] [place] [address] Aramis Felix APRN, [facility] [id number] Encounter for general adult medical examination [...] Upcoming Encounters Date Type Department Care Team ([facility] Contact Info) Description 08/24/2025 2:20 PM EST Office Visit [facility] [place] [address] [facility], [address] [place] [address] Galo Leung MD [address] [place] [phone] documented as of this encounter Procedures Procedure Name Priority Date/Time Associated Diagnosis Comments BENZODIAZEPINE, URINE, QUANTITATIVE STAT 11/21/2023 2:30 PM EST Encounter for general adult medical examination without abnormal findings documented in this encounter Results * (ABNORMAL) Benzodiazepine, urine, quantitative (11/21/2023 2:30 PM EST) [facility] [place] Alprazolam <20 <20 ng/mL 11/22 7:07 PM EST [facility] [place] Midazolam <20 <20 ng/mL 2023 7:07 PM EST [facility] [place] Triazolam <20 <20 ng/mL 2023 7:07 PM EST [facility] Alprazolam <10 <10 ng/mL 11/23/2023 7:07 PM EST [facility] Aminoclonazepam <20 <20 ng/mL 7:07 PM EST [facility] Clonazepam <10 <10 ng/mL 11/23/2023 7:07 PM EST [facility] Diazepam <10 <10 ng/mL 11/23/2023 7:07 PM EST [facility] Lorazepam <20 <20 ng/mL 11/23/2023 7:07 PM EST [facility] Lorazepam Glucuronide >1,000(H) <50 ng/mL 11/23/2023 7:07 PM EST [facility] Midazolam 11/23/2023 7:07 PM EST [facility] Nordiazepam <20 <20 ng/mL 11/23/2023 7:07 PM EST [facility] Oxazepam <20 <20 ng/mL 11/23/2023 7:07 PM EST [facility] Oxazepam Glucuronide <50 <50 ng/mL 11/23/2023 7:07 PM EST [facility] Temazepam <20 <20 ng/mL 11/23/2023 7:07 PM EST [facility] Temazepam Glucuronide <50 <50 ng/mL 11/23/2023 7:07 PM EST [facility] Triazolam 11/23/2023 7:07 PM EST [facility] Urine Urine specimen obtained by clean catch procedure / Unknown 11/21/2023 2:30 PM EST 11/22/2023 9:32 AM EST Narrative [facility] - 11/23/2023 7:07 PM EST Drug analysis is confirmed by LC-MS/MS (LC Tandem Mass Spectrometry) on Urine specimens. This test was developed and its performance characteristics determined by [facility]. It has not been cleared or approved by the FDA. The laboratory is regulated under CLIA as qualified to perform high-complexity testing. This test is used for clinical purposes. Testing is performed at the [facility], [facility] Laboratory. Aramis Felix APRN, CNM LAB URINE ORDERABLES Stefanie l Result [facility] [address] [place] [address] documented in this encounter Visit Diagnoses Diagnosis Encounter for general adult medical examination without abnormal findings documented in this encounter Additional Health Concerns Assessment Noted Time PHQ-9 Depression Total Score: 24 023 12:42 PM EST documented as of this encounter Care Teams Rustic Fence Builder Relationship Specialty Start Date End Date Sandro Sebastian MD [address] [place] [id number] PCP - General 01/27/21 documented as of this encounter
--- OUTSIDE RECORDS SUMMARY | 2025-08-20 18:22 | XMS_ITS | Encounter Summary ---
Author Organization [facility] Address [address] [place] [address] Care Team Providers Care Adding Machine Mechanic Name Role Phone Sandro Sebastian MD Primary Care Provider [phone] Encounter Details Date Type Department Care Team (Late Contact Info) Description 03/30/2021 Lab Requisition [facility] [address] [place] [address] Brian Galvez MD [address] [place] [phone] Encounter for general adult medical examination without [...] Description 08/24/2025 2:20 PM EST Office Visit [facility] [place] [address] [facility], [address] [place] [phone] Galo Leung MD [address] [place] [phone] documented as of this encounter Procedures Procedure Name Priority Date/Time Associated Diagnosis Comments AMPHETAMINES LCMSMS URINE Routine 03/29/2021 8:27 PM EDT Encounter for general adult medical examination without abnormal findings documented in this encounter Results * (ABNORMAL) Amphetamine Urine Confirm LCMSMS (03/29/2021 8:27 PM EDT) Amphetamine >1,000(H) <50 ng/mL 03/31/2021 10:31 AM EDT [facility] Methamphetamine <50 <50 ng/mL 10:31 AM EDT [facility] MDA <50 <50 ng/mL 03/31/2021 10:31 AM EDT [facility] MDMA <50 <50 ng/mL 03/31/2021 10:31 AM EDT [facility] Urine Urine specimen obtained by clean catch procedure / Unknown 03/29/2021 8:27 PM EDT 03/30/2021 1:07 AM EDT Narrative [facility] - 03/31/2021 10:31 AM EDT Drug analysis is confirmed by LC-MS/MS (LC Tandem Mass Spectrometry) on Urine specimens. This test was developed and its performance characteristics determined by [facility]. It has not been cleared or approved by the FDA. The laboratory is regulated under CLIA as qualified to perform high-complexity testing. This test is used for clinical purposes. Testing is performed at the [facility], [facility] Laboratory. us Brian Galvez MD LAB URINE ORDERABLES Final R esult [facility] [address] [place] [address] documented in this encounter Visit Diagnoses Diagnosis Encounter for general adult medical examination without abnormal findings documented in this encounter Care Teams Adding Machine Mechanic Relationship Specialty Start Date End Date Sandro Sebastian MD [facility] [employer] [place] [address] PCP - General 01/27/21 documented as of this encounter
--- OUTSIDE RECORDS SUMMARY | 2025-08-20 18:22 | XMS_ITS | Encounter Summary ---
Author Organization [facility] Address [address] [place] [address] Care Team Providers Care Vp Software Engineering Name Role Phone Sandro Sebastian MD Primary Care Provider Encounter Details Date Type Department Care Team (Late Contact Info) Description 04/06/2021 Lab Requisition [facility] [address] [place] [address] Braxton Ballesteros MD [address] [facility] [address] [place], [place] [phone] Encounter for general adult medical examination without [...] Description 08/24/2025 2:20 PM EST Office Visit [facility] [place] [address] [facility], [address] [place] [address] Galo Leung MD [address] [place] [phone] documented as of this encounter Procedures Procedure Name Priority Date/Time Associated Diagnosis Comments AMPHETAMINES LCMSMS URINE Routine 04/06/2021 2:07 AM EDT Encounter for general adult medical examination without abnormal findings documented in this encounter Results * (ABNORMAL) Amphetamine Urine Confirm LCMSMS (04/06/2021 2:07 AM EDT) Amphetamine >1,000(H) <50 ng/mL 04/08/2021 4:56 PM EDT LAB Methamphetamine <50 <50 ng/mL 4:56 PM EDT [facility] MDA <50 <50 ng/mL 04/08/2021 4:56 PM EDT [facility] MDMA <50 <50 ng/mL 04/08/2021 4:56 PM EDT LAB Urine Urine specimen obtained by clean catch procedure / Unknown 04/06/2021 2:07 AM EDT 04/06/2021 10:10 AM EDT Narrative LAB - 04/08/2021 4:56 PM EDT Drug analysis is confirmed by LC-MS/MS (LC Tandem Mass Spectrometry) on Urine specimens. This test was developed and its performance characteristics determined by [facility]. It has not been cleared or approved by the FDA. The laboratory is regulated under CLIA as qualified to perform high-complexity testing. This test is used for clinical purposes. Testing is performed at the [facility], [facility] Laboratory. us Braxton Ballesteros MD LAB URINE ORDERABLES Final Res ult [facility] [address] [place] [address] documented in this encounter Visit Diagnoses Diagnosis Encounter for general adult medical examination without abnormal findings documented in this encounter Care Teams Vp Software Engineering Relationship Specialty Start Date End Date Sandro Sebastian MD [facility] [place] [address] PCP - General 01/27/21 documented as of this encounter
--- NOTE | 2025-08-20 18:33 | ECG_ITS ---
APPROVED REPORT Exam: Resting ECG HR:82 bpm ECG Measurements Heart Rate 82 AXES MA 156 P 33 QRSd 121 QRS -79 QT 405 T 45 QTc 443 Conclusion Ventricular paced rhythm Normal intervals No STEMI Electronically signed by : Sohail Benitez, 08/20/2025 23:28:18
--- NOTE | 2025-08-20 18:37 | CT_ITS ---
PROCEDURE INFORMATION: Exam: CT Abdomen And Pelvis With Contrast Exam date and time: 08/20/2025 7:04 PM Age: 39 years old Clinical indication: Abdominal pain; Epigastric; Additional info: Abdominal pain, epigastric, luq TECHNIQUE: Imaging protocol: Computed tomography of the abdomen and pelvis with contrast. Radiation optimization: All CT scans at this facility use at least one of these dose optimization techniques: automated exposure control; mA and/or kV adjustment per patient size (includes targeted exams where dose is matched to clinical indication); or iterative reconstruction. Contrast material: ISOVUE; Contrast volume: 75 ml; Contrast route: IV; COMPARISON: CT ANGIO ABDOMEN PELVIS 08/10/2025 4:18 PM FINDINGS: Pleural spaces: Minimal bilateral pleural effusions. Heart: Cardiac pacing leads. Liver: Normal. No mass. Gallbladder and biliary ducts: Normal. No calcified stones. No ductal dilation. Pancreas: Normal. No ductal dilation. Spleen: Few punctate calcified granulomas. No splenomegaly. Adrenal glands: Normal. No mass. Kidneys and ureters: 4 mm right kidney midpole nonobstructing nephrolith. No hydronephrosis. Stomach and bowel: Several nondistended fluid-filled loops small bowel. Moderate colonic stool. No obstruction. No mucosal thickening. Appendix: No evidence of appendicitis. Intraperitoneal space: Unremarkable. No free air. No significant fluid collection. Vasculature: Unremarkable. No abdominal aortic aneurysm. Lymph nodes: Unremarkable. No enlarged lymph nodes. Urinary bladder: Unremarkable as visualized. Reproductive: Unremarkable as visualized. Bones/joints: Degenerative changes. No acute fracture. Soft tissues: Unremarkable. IMPRESSION: 1. 4 mm right kidney midpole nonobstructing nephrolith. 2. Several nondistended fluid-filled loops small bowel, a nonspecific finding, although can be seen with enteritis. 3. Minimal bilateral pleural effusions.
--- NOTE | 2025-08-20 18:39 | HMH.EDGENADL ---
Discharge Plan Disposition Patient Disposition: Admitted Condition: Good Clinical Impressions Clinical Impression: Abdominal pain Qualifiers: Abdominal location: multiple sites Qualified Code(s): R10.85 - Abdominal pain of multiple sites Discharge ED Provider: Sohail Benitez Adult HPI General Chief complaint: Abdominal Pain Stated complaint: Stomach Pain, Chest Pain, & Nausea Time Seen by Provider: 08/20/25 18:17 Mode of Arrival: Ambulatory Source of Information: Patient Description of Symptoms (Recalled from ER Triage Doc. by RN): Patient reports upper abdomen pain that has been of and on for a while. States she was seen a week ago for the same symptoms however it has not gotten any better. Also reports black tarry stools for 2 weeks. History of Present Illness HPI narrative: This is a 39-year-old female patient, with past medical history of cardiomyopathy status post pacemaker defibrillator installation SVT, paroxysmal atrial fibrillation anticoagulated on Xarelto, who is presenting to the emergency department today for evaluation of abdominal pain. Patient states this pains been going on for the last 2 weeks. She was seen here in the emergency department on 08/10/2025 and had a CTA of the abdomen and pelvis that was essentially negative. Her pain responded well to treatments for acid reflux in the emergency department so she was sent home with Dexlansoprazole and Carafate and she states that this has not cured her pain. She has tried to establish outpatient follow-up with Dr. Robins of the gastroenterology clinic and has been unable to do so until September. She states that her pain has become constant over the last 3 hours and has significantly worsened. She describes it as located in the epigastric region and left upper quadrant. Her pain is not postprandial in nature. She does note that she has had some dark tarry stools this evening. Related Data Home Medications ?Medication ?Instructions ?Recorded ?Confirmed loratadine 10 mg tablet (Allergy 10 mg PO DAILY 05/05/21 08/02/25 Relief (loratadine)) omeprazole 40 mg capsule,delayed 40 mg PO DAILY 05/05/21 08/02/25 release buspirone 30 mg tablet 30 mg PO BID 09/13/23 08/02/25 hydroxyzine HCl 50 mg tablet 100 mg PO TIDP PRN Anxiety 09/13/23 08/02/25 lorazepam 1 mg tablet 1 mg PO TIDP PRN Anxiety 09/13/23 08/02/25 dextromethorphan IR 45 1 tab PO BID 12/24/24 08/02/25 mg-bupropion ER 105 mg biphasic tablet (Auvelity) empagliflozin 10 mg tablet 10 mg PO DAILY 12/25/24 08/02/25 (Jardiance) Held on 12/25/24. Instructions: Resume on 01/01/25. Hold this medication until you follow-up with cardiology as it can cause low blood pressures. glycopyrrolate 2 mg tablet 2 mg PO 01/21/25 08/02/25 gabapentin 100 mg capsule 100 mg PO BID 06/01/25 08/02/25 trazodone 100 mg tablet 100 mg PO HS 06/01/25 08/02/25 ferrous sulfate 325 mg (65 mg 325 mg PO DAILY 08/02/25 08/02/25 iron) tablet (FeroSul) Previous Rx's ?Medication ?Instructions ?Recorded nadolol 20 mg tablet 10 mg (1/2 x 20 mg) PO DAILY #30 04/12/25 tabs prucalopride 2 mg tablet 2 mg PO DAILY #30 tabs 06/01/25 nitrofurantoin 100 mg PO QHS #30 caps 06/21/25 monohydrate/macrocrystals 100 mg capsule (Macrobid) rivaroxaban 20 mg tablet (Xarelto) 20 mg PO DAILY #30 tabs 08/02/25 dexlansoprazole 60 mg 60 mg PO DAILY 8 weeks #56 caps 08/10/25 capsule,biphase delayed release (Dexilant) sucralfate 1 gram tablet (Carafate) 1 g PO BID 8 weeks #112 tabs 08/10/25 Allergies Allergy/AdvReac Type Severity Reaction Status Date / Time Penicillins Allergy Intermediate Rash Verified 08/02/25 13:38 [facility] Disclaimer: The information contained in this section may have been updated after the patient was seen, as this information can be updated by other users. Medical History (Updated 08/20/25 @ 22:56 by Adrian Vo APRN) PAF (paroxysmal atrial fibrillation) Constipation Gestational diabetes SVT (supraventricular tachycardia) History of pacemaker NYHA class 3 systolic congestive heart failure with reduced left ventricular function NYHA class 2 heart failure with reduced ejection fraction High pulmonary arterial pressure Hypotension Syncope Elevated serum creatinine Creatinine elevation Kidney stone Family history of ischemic heart disease (IHD) Umbilical hernia Surgical History History of bladder surgery History of renal stent History of oral surgery History of breast biopsy Family History Grandfather Family history of myocardial infarction Sister Family history of cancer Father Family history of cancer Social History Smoking Status: Current every day smoker tobacco type: e-cigarettes second hand exposure: No alcohol intake: former substance use type: denies use current occupational status: unemployed Travel in the last 8 weeks?: None household members: family housing: house marital status: current occupational exposures/hazards: No caffeine: Yes Have you lived/traveled outside [place] in past 30 days?: No Contact w/someone who lives/traveled outside [place] past 30 days?: No Exposure to someone with infectious disease in past 14 days?: No Do you have a fever (greater than 100.4 F or 38 C)?: No Have you tested positive for COVID-19?: No Exposed to someone with COVID-19 in past 14 days?: No Do you have a sore throat?: No Do you have a cough?: No Do you have any weakness?: No Do you have any diarrhea?: No Are you experiencing any unusual bleeding?: No Do you have any muscle aches/pain?: No Do you have any abdominal pain?: No Are you experiencing loss of taste or smell?: No Other Medical History Have you received the Flu Vaccine for this season: No Have you received the Pneumonia Vaccine: No ROS Obtained: Yes Systems reviewed as appropriate & no additional complaints except as documented Physical Exam General General appearance: other (See MDM) Respiratory Respiratory exam: Present other (See MDM) Cardiovascular Cardiovascular exam: Present other (See MDM) Neurological Exam Neurological exam: Present other (See MDM) Medical Decision Making Medical Records Medical records reviewed: Yes I reviewed the patient's medical records. Screening: Per USPSTF and CDC recommendations, given the prevalence of disease in our region, it is our hospital?s policy to screen for HIV and viral Hepatitis for all patients aged 18 and over and those with ongoing risk factors. Jaime Inquiry Pt receiving controlled substance: No Jaime was queried for this patient: No Vital Signs: 08/20/25 18:30 08/20/25 18:30 08/20/25 18:35 Temperature 98.0 F 98.8 F Temperature Source Oral Oral Pulse Rate 80 74 Pulse Rate [Radial] 85 Respiratory Rate 18 15 18 Blood Pressure 139/96 H 127/78 Blood Pressure [Right Arm] 143/73 H Blood Pressure Mean Blood Pressure Mean [Right Arm] 96 Blood Pressure Source [Right Arm] Automatic Cuff Blood Pressure Position [Right Arm] Sitting 02 Sat by Pulse Oximetry 97 97 98 Oxygen Delivery Method Room Air Room Air Room Air 08/20/25 19:00 08/20/25 19:25 08/20/25 19:30 Temperature Temperature Source Pulse Rate 78 80 73 Pulse Rate [Radial] Respiratory Rate Blood Pressure 131/89 128/85 124/84 Blood Pressure [Right Arm] Blood Pressure Mean 99 92 93 Blood Pressure Mean [Right Arm] Blood Pressure Source [Right Arm] Blood Pressure Position [Right Arm] 02 Sat by Pulse Oximetry 96 95 96 Oxygen Delivery Method 08/20/25 20:00 08/20/25 22:26 Temperature 98.8 F Temperature Source Pulse Rate 72 71 Pulse Rate [Radial] Respiratory Rate 18 Blood Pressure 128/82 137/87 Blood Pressure [Right Arm] Blood Pressure Mean 95 Blood Pressure Mean [Right Arm] Blood Pressure Source [Right Arm] Blood Pressure Position [Right Arm] 02 Sat by Pulse Oximetry 96 Oxygen Delivery Method Room Air Lab Data Lab Results 08/20/25 18:29: WBC 8.6, RBC 4.89, Hgb 13.9, Hct 40.6, MCV 83.0, MCH 28.4, MCHC 34.2, RDW 12.4, Plt Count 248, MPV 9.8, Neut % (Auto) 52.0, Lymph % (Auto) 28.0, Hickman % (Auto) 4.7, Eos % (Auto) 14.2 H, Baso % (Auto) 0.7, Neut # (Auto) 4.5, Lymph # (Auto) 2.4, Hickman # (Auto) 0.4, Eos # (Auto) 1.2 H, Baso # (Auto) 0.1, Sodium 131 L, Potassium 4.2, Chloride 100, Carbon Dioxide 27, Anion Gap 8.2, BUN 15, Creatinine 0.90, Estimated Creat Clear 82, Estimated GFR 70, Est GFR ( Amer) 85, Glucose 95, Lactate 0.9, Calcium 9.2, Total Bilirubin 0.6, AST 36, ALT 14, Alkaline Phosphatase 57, Troponin I < 0.01, Total Protein 7.5, Albumin 4.5, Globulin 3.0, Albumin/Globulin Ratio 1.5, Lipase 54, Serum HCG, Qual Negative, Urine Color Yellow, Urine Appearance Clear, Urine pH 6.0, Ur Specific [place] 1.020, Urine Protein Negative, Urine Glucose (UA) 3+, Urine Ketones Negative, Urine Blood Negative, Urine Nitrate Negative, Urine Bilirubin Negative, Urine Urobilinogen 0.2, Ur Leukocyte Esterase Negative, Urine RBC 5-10, Urine WBC 3-5, Ur Squamous Epith Cells 20-50, Urine Bacteria 4+ 08/20/25 18:29 08/20/25 18:29 Orders (Tests/Meds): ED MEDICATIONS Generic Name Dose Route Start Last Admin Trade Name Freq PRN Reason Stop Dose Admin Acetaminophen 650 mg 08/20/25 22:30 Acetaminophen 325mg Tab PO 09/19/25 22:29 Q4HP PRN Fever or Mild Pain (1-3) Hydrocodone Bitart/Acetaminophen 1 tab 08/20/25 22:30 Hydrocodone/Apap 5/325 Mg Tablet PO 09/19/25 22:29 Q4HP PRN Mild to Moderate Pain (1-6) Hydromorphone HCl 0.25 mg 08/20/25 22:30 Hydromorphone 2mg/Ml Syringe IV 09/19/25 22:29 Q4HP PRN Severe Pain (7-10) Hydromorphone HCl 0.5 mg 08/20/25 22:30 08/20/25 22:58 Hydromorphone 2mg/Ml Syringe IV 08/20/25 22:31 0.5 mg ONCE ONE Administration Levofloxacin 750 mg 08/21/25 11:00 Levofloxacin 750 Mg Tablet PO 08/31/25 10:59 1100 FIOR Metronidazole 500 mg 08/21/25 09:00 Metronidazole 500 Mg Tablet PO 08/31/25 08:59 TID FIOR Nicotine 21 mg 08/20/25 22:35 Nicotine 21mg/24hr Patch TD 09/19/25 22:34 DAILYP PRN Nicotine Cravings Ondansetron HCl 4 mg 08/20/25 22:30 Ondansetron 4mg/2ml Vial IV 09/19/25 22:29 Q8HP PRN Nausea Pantoprazole Sodium 40 mg 08/21/25 09:00 Pantoprazole 40mg Tablet PO 09/20/25 08:59 BID FIOR Simethicone 80 mg 08/20/25 22:30 Simethicone 80mg Chewable Tablet PO 09/19/25 22:29 Q6HP PRN Dyspepsia Sodium Chloride 8 ml 08/20/25 20:13 08/20/25 20:19 Sodium Chloride 0.9% 10ml Vial IV 09/19/25 20:12 8 ml NEEDED PRN Administration dilute pepcid Sodium Chloride 10 ml 08/20/25 22:30 Sodium Chloride 0.9% 10ml Flush Syringe IV 09/19/25 22:29 NEEDED PRN Maintain IV Site Sucralfate 1 gm 08/21/25 06:00 Sucralfate 1gm/10ml Susp Udc PO 09/20/25 05:59 ACHS FIOR Trazodone HCl 100 mg 08/20/25 22:37 Trazodone 50mg Tablet PO 09/19/25 22:36 HSP PRN Insomnia Discontinued Medications Generic Name Dose Route Start Last Admin Trade Name Freq PRN Reason Stop Dose Admin Belladonna Alkaloids 60 ml 08/20/25 20:13 08/20/25 20:19 Belladonna Alkaloids 60 Ml Ml PO 08/20/25 20:14 60 ml ONCE ONE Administration Dicyclomine HCl 20 mg 08/20/25 19:54 08/20/25 20:09 Dicyclomine 10mg Capsule PO 08/20/25 19:55 20 mg ONCE ONE Administration Famotidine 20 mg 08/20/25 20:13 08/20/25 20:20 Famotidine 20mg/2ml Vial IV 08/20/25 20:14 20 mg ONCE ONE Administration Hydromorphone HCl 0.5 mg 08/20/25 22:30 Hydromorphone 2mg/Ml Syringe IM 08/20/25 22:31 ONCE ONE Iopamidol 75 ml 08/20/25 19:04 08/20/25 19:05 Iopamidol-370 (76%);100ml Bottle IV 08/20/25 19:05 75 ml ONCE ONE Administration Morphine Sulfate 4 mg 08/20/25 18:37 08/20/25 18:57 Morphine 4mg/Ml Syringe IV 08/20/25 18:38 4 mg ONCE ONE Administration Morphine Sulfate 4 mg 08/20/25 21:12 08/20/25 21:15 Morphine 4mg/Ml Syringe IV 08/20/25 21:13 4 mg ONCE ONE Administration Ondansetron HCl 4 mg 08/20/25 18:37 08/20/25 18:54 Ondansetron 4mg/2ml Vial IV 08/20/25 18:38 4 mg ONCE ONE Administration Sodium Chloride 10 ml 08/20/25 19:04 08/20/25 19:05 Sodium Chloride 0.9% 10ml Syr (Rad Only) IV 08/20/25 19:05 10 ml ONCE ONE Administration ORDERS Category Date Time Status CT abdomen pelvis w con Stat Cat Scan 08/20/25 18:37 Completed POCUS Point of Care (ER Only) Stat Exams 08/20/25 19:55 Completed CBC w/Auto Diff [Complete Blood Count Auto Diff] Stat Lab 08/20/25 18:29 Completed CMP [Comprehensive Metabolic Panel] Stat Lab 08/20/25 18:29 Completed HCG Qualitative, Serum Stat Lab 08/20/25 18:29 Completed Lactic Acid Stat Lab 08/20/25 18:29 Completed Lipase Stat Lab 08/20/25 18:29 Completed Troponin I Q3H Lab 08/21/25 00:45 Ordered Troponin I Stat Lab 08/20/25 18:29 Completed UA [Urinalysis and Microscopic] Stat Lab 08/20/25 18:29 Completed Urine Culture Stat Micro 08/20/25 18:29 Received ECG Data Tracing #1: I reviewed this ECG and interpreted as documented below: EKG personally turbid by me demonstrates a ventricular paced rhythm at a rate of 82 bpm, indeterminate axis, no FL prolongation, narrow QRS, no QTc prolongation. No ST ovation or depression. No overt signs of ischemia or arrhythmia Medical Decision Narrative: In summary this is a 39-year-old female patient who is presenting to the emergency department today for evaluation of 2 weeks of epigastric and left upper quadrant abdominal pain that has worsened over the last 3 hours this evening. She also states that this is associated with intermittent Melanic stools. Her past medical history includes cardiomyopathy, heart failure, pacemaker/AICD implantation, paroxysmal A-fib and SVT. She is anticoagulated on Xarelto On initial evaluation of the patient they were resting comfortably in no acute distress and nontoxic in appearance. They are hemodynamically stable, saturating well room air, and are neurologically intact. On physical examination her heart and lungs are clear to auscultation bilaterally. She has abdominal tenderness in the epigastrium and left upper quadrant. No lower quadrant or right upper quadrant tenderness palpation. No evidence of jeff peritonitis. No lower extremity erythema or edema. Differential diagnosis includes pancreatitis, gastritis, upper GI bleed, peptic ulcer disease, pneumoperitoneum, intra-abdominal abscess, enteritis, colitis, cholecystitis, among others. Workup was initiated hematologic labs as well as an EKG and a CT scan of the abdomen and pelvis. EKG was personally turbid by me and demonstrates a ventricular paced rhythm with no evidence of ischemia. Please see full interpretation above. Labs were personally turbid by me and demonstrate no leukocytosis. No anemia. Mild hyponatremia, no other electrolyte derangement or acute kidney injury. Troponin is less than 0.01. Lipase is normal. No evidence of urinary tract infection on urinalysis, however there is evidence of contaminant with 20-[address] scan of the abdomen and pelvis was personally turbid by me and demonstrates no large pneumoperitoneum. Official radiology read is in agreement and states there is evidence of enteritis I did perform a right upper quadrant ultrasound the patient as she voiced concern about her gallbladder. His ultrasound was personally turbid by me and demonstrates no gallbladder wall thickening, no choledocholithiasis, and no evidence of pericholecystic fluid to indicate cholecystitis. This is a normal examination. Please see procedure note for details While the patient was in the emergency department we treated her pain initially with 4 mg of morphine and 4 mg of Zofran. She did not receive adequate pain control with this so I did try dicyclomine as well as Pepcid and a GI cocktail. This did not improve her symptoms at all. Therefore I administered an additional 4 mg of morphine. On repeat assessment of the patient she still seems to be writhing in pain without any improvement. We had a long conversation about her disposition and ultimately decided that she would be better served by inpatient admission for intractable abdominal pain in the setting of enteritis. Therefore I had an interactive discussion with the internal medicine service who agreed to evaluate the patient in the emergency department. After discussion of their evaluation they agreed to admit the patient to their service and except primary responsibility of the patient moving forward. Critical Care Critical Care Time Critical Care Time: No
[2025-08-20 18:40] LABS: Microscopic, Urine URINE MICROSCOPIC (MICROSCOPIC)
[2025-08-20 18:42] LABS: Hematocrit 40.6 % (37.0-47.0); Hemoglobin 13.9 g/dL (12.2-16.2); Immature Granulocytes % 0.4 %; Mean Corpuscular HGB Conc 34.2 g/dL (31.8-35.4); Mean Corpuscular Hemoglobin 28.4 pg (27.0-31.2); Mean Corpuscular Volume 83.0 fl (81-99); Nucleated Red Blood Cells % 0 %; Platelet Count 248 K/mm3 (142-424); Red Blood Count 4.89 M/mm3 (4.20-5.40); Red Cell Distribution Width-SD 37.6 fL; White Blood Count 8.6 K/mm3 (4.8-10.8)
[2025-08-20 18:44] LABS: Bilirubin,Urine Negative (Negative); Color,Urine YELLOW (Yellow); Glucose,Urine (UA) 3+ (Negative); Ketones,Urine Negative (Negative); Leukocyte Esterase,Urine Negative (Negative); PH,Urine 6.0 (5.0-8.5); Protein,Urine Negative (Negative); Specific Gravity, Urine 1.020 (1.005-1.030); Urobilinogen,Urine 0.2 EU/dl (0.2)
[2025-08-20 18:51] LABS: Alanine Aminotransferase 14 U/L (12-78); Albumin Level 4.5 g/dl (3.5-5.0); Albumin/Globulin Ratio 1.5 (1.1-1.8); Alkaline Phosphatase 57 U/L (38-126); Anion Gap 8.2 mEq/L (5-15); Aspartate Amino Transferase 36 U/L (14-36); Bilirubin,Total 0.6 mg/dl (0.2-1.3); Blood Urea Nitrogen 15 mg/dl (7-17); Calcium 9.2 mg/dl (8.4-10.2); Carbon Dioxide 27 mmol/L (22.0-30.0); Chloride 100 mmol/L (98-107); Creatinine Clearance Estimated 82 mL/min (50-200); Creatinine,Serum 0.90 mg/dl (0.52-1.04); Estimated Glomerular Filt Rate 70 ml/min (>60); GFR (African American) 85 ML/MIN (>60); Globulin 3.0 g/dL (1.3-3.2); Glucose 95 mg/dl (74-100); Lipase 54 U/L (23-300); Potassium 4.2 mmoL/L (3.5-5.1); Sodium 131 mmol/L (136-145); Total Protein,Serum 7.5 g/dl (6.3-8.2)
[2025-08-20] MEDS: ONDANSETRON 4MG/2ML VIAL 4 MG IV (18:54)
[2025-08-20 18:55] LABS: HCG Qualitative, Serum Negative (Negative)
[2025-08-20] MEDS: MORPHINE 4MG/ML SYRINGE 4 MG IV ×2 (18:57→21:15)
[2025-08-20 19:04] LABS: Troponin I < 0.01 ng/ml (0.00-0.034)
[2025-08-20] MEDS: SODIUM CHLORIDE 0.9% 10ML SYR (RAD ONLY) 10 ML IV (19:05)
[2025-08-20] MEDS: IOPAMIDOL-370 (76%);100ML BOTTLE 75 ML IV (19:05)
[2025-08-20 19:13] LABS: Bacteria,Urine 4+ /lpf; Squamous Epithelial Cell,Urine 20-50 #/hpf (0-5)
[2025-08-20] MEDS: SODIUM CHLORIDE 0.9% 10ML VIAL 8 ML IV (20:19)
[2025-08-20] MEDS: BELLADONNA ALKALOIDS 60 ML ML PO (20:19)
[2025-08-20] MEDS: FAMOTIDINE 20MG/2ML VIAL 20 MG IV (20:20)
--- NOTE | 2025-08-20 22:22 | PC.NURSE ---
Report called to Sander MYRES
--- NOTE | 2025-08-20 22:37 | P.HP_ITS ---
<Statement entered by Bam Oliver MD - 08/21/25 17:58> Agree with plan of care as outlined by the CLINICAL RESEARCH NURSE COORDINATOR below. Personally evaluated patient, she continues to have intermittent chest pressure that seems to be somewhat alleviated by nitro. Shooting right arm pain seems more consistent with right-sided cervical radiculopathy extending to her 4th and 5th digits. No swelling noted that is asymmetrical compared to left arm that would relate to severe innominate artery stenosis. 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 Pradhan. He advised outpatient follow-up on Saturday at 11 AM. However, patient continues to have episodes of chest pressure. Will continue to monitor here on cardiac telemetry, continue Nitropaste and pain regimen as needed. GI cocktail did not alleviate symptoms. History of Present Illness *Admission Date: 08/20/25 *Reason for visit:: Abdominal pain *History of present illness: This is a 39-year-old female who has a past medical history significant for cardiomyopathy/HFpEF/status post pacemaker placement, atrial fibrillation currently prescribed DOAC therapy, constipation, gestational diabetes, SVT, hypertension, nephrolithiasis, and umbilical hernia who presents to the emergency room with persistent abdominal pain. Due to patient's symptoms, she presented to the emergency room for evaluation. While in the emergency room, CT scan of the abdomen pelvis showed a 4 mm right kidney stone midpole nonobstructing nephrolith, severe nondistended fluid-filled loops of the small bowel and nonspecific findings consistent with enteritis, and minimal bilateral pleural effusions. Patient was given multiple intervention for abdominal pain and her abdominal pain remained refractory; as result, hospital medicine was consulted for further management. During my evaluation of the patient, patient states that she has been having epigastric to right upper quadrant abdominal pain for the past 2 weeks. She presented to the emergency room in the past and CT scan of the abdomen pelvis was without any acute findings. Patient reports that her abdominal pain has been consistent for the last 3 hours prior to presenting to the emergency room. Patient reports she has had a colonoscopy in 2022 which was nonrevealing. She reports her last EGD was for approximately 15 years ago and she was prescribed PPI therapy for GERD. Currently, patient is taking Dexilant for her symptomology. She reports drinking or using Mylanta as a outpatient with no relief of her symptoms. She does have a complicated cardiac history with cardiomyopathy leading to HFrEF and pacemaker/defibrillator placement. She denied any chronic opioid use. Patient mentions that she has an appointment with her primary cylinder filler but is not until September. She states that her pain is so intense she cannot take care of her children. She is currently denying any hematemesis, melena stools, hematochezia, lightheadedness, dizziness, fever, chills, rigors, nausea, vomiting, shortness of breath, dyspnea, or diarrhea. Patient states she does have loose stool daily but this is medication induced. Additional pertinent labs obtained include a sodium 131. [facility] Disclaimer: The information contained in this section may have been updated after the patient was seen, as this information can be updated by other users. Medical History (Updated 08/20/25 @ 22:56 by Adrian Vo APRN) PAF (paroxysmal atrial fibrillation) Constipation Gestational diabetes SVT (supraventricular tachycardia) History of pacemaker NYHA class 3 systolic congestive heart failure with reduced left ventricular function NYHA class 2 heart failure with reduced ejection fraction High pulmonary arterial pressure Hypotension Syncope Elevated serum creatinine Creatinine elevation Kidney stone Family history of ischemic heart disease (IHD) Umbilical hernia Surgical History History of bladder surgery History of renal stent History of oral surgery History of breast biopsy Family History Grandfather Family history of myocardial infarction Sister Family history of cancer Father Family history of cancer Social History Smoking Status: Current every day smoker tobacco type: e-cigarettes second hand exposure: No alcohol intake: former substance use type: denies use current occupational status: unemployed Travel in the last 8 weeks?: None household members: family housing: house marital status: current occupational exposures/hazards: No caffeine: Yes Have you lived/traveled outside [place] in past 30 days?: No Contact w/someone who lives/traveled outside US past 30 days?: No Exposure to someone with infectious disease in past 14 days?: No Do you have a fever (greater than 100.4 F or 38 C)?: No Have you tested positive for COVID-19?: No Exposed to someone with COVID-19 in past 14 days?: No Do you have a sore throat?: No Do you have a cough?: No Do you have any weakness?: No Do you have any diarrhea?: No Are you experiencing any unusual bleeding?: No Do you have any muscle aches/pain?: No Do you have any abdominal pain?: No Are you experiencing loss of taste or smell?: No Other Medical History Have you received the Flu Vaccine for this season: No Have you received the Pneumonia Vaccine: No Review of Systems Review of Systems Review of systems:: pertinent systems reviewed and negative unless documented below Constitutional Constitutional: Reports system reviewed and no additional complaints, except as documented Eyes Eyes: Reports system reviewed and no additional complaints, except as documented ENT Ears, Nose, Mouth, and Throat: Reports system reviewed and no additional complaints, except as documented *Cardiovascular Cardiovascular: Reports system reviewed and no additional complaints, except as documented *Respiratory Respiratory: Reports system reviewed and no additional complaints, except as documented *Gastrointestinal Gastrointestinal: Reports abdominal pain and Reports loose stools *Genitourinary Genitourinary: Reports system reviewed and no additional complaints, except as documented *Musculoskeletal Musculoskeletal: Reports system reviewed and no additional complaints, except as documented Integumentary/Breasts Skin/Breast: Reports system reviewed and no additional complaints, except as documented *Neurologic Neurologic: Reports system reviewed and no additional complaints, except as documented Psychiatric Psychiatric: Reports system reviewed and no additional complaints, except as documented Endocrine Endocrine: Reports system reviewed and no additional complaints, except as documented Hematologic/Lymphatic Hematologic/Lymphatic: Reports system reviewed and no additional complaints, except as documented Allergic/Immunologic Allergic/Immunologic: Reports system reviewed and no additional complaints, except as documented Meds Home Medications and Allergies Home Medications ?Medication ?Instructions ?Recorded ?Confirmed ?Type loratadine 10 mg tablet (Allergy 10 mg PO DAILY 08/02/25 History Relief (loratadine)) omeprazole 40 mg capsule,delayed 40 mg PO DAILY 08/02/25 History release buspirone 30 mg tablet 30 mg PO BID 09/13/23 History hydroxyzine HCl 50 mg tablet 100 mg PO TIDP PRN Anxiet y 09/13/23 08/02/25 History lorazepam 1 mg tablet 1 mg PO TIDP PRN Anxiety 08/02/25 History dextromethorphan IR 45 1 tab PO BID 12/24/24 History mg-bupropion ER 105 mg biphasic tablet (Auvelity) empagliflozin 10 mg tablet 10 mg PO DAILY 12/25/24 History (Jardiance) Held on 12/25/24. Instructions: Resume on 01/01/25. Hold this medication until you follow-up with cardiology as it can cause low blood pressures. glycopyrrolate 2 mg tablet 2 mg PO 01/21/25 08/02/25 H istory nadolol 20 mg tablet 10 mg (1/2 x 20 mg) PO DAILY #30 04/12/25 08/02/25 Rx tabs gabapentin 100 mg capsule 100 mg PO BID 06/01/2508/02 History prucalopride 2 mg tablet 2 mg PO DAILY #30 tabs 06/0108/02/25 Rx trazodone 100 mg tablet 100 mg PO HS 06/01/25 History nitrofurantoin 100 mg PO QHS #30 caps 06/2108/02/25 Rx monohydrate/macrocrystals 100 mg capsule (Macrobid) ferrous sulfate 325 mg (65 mg 325 mg PO DAILY 08/02/25 08/02/25 History iron) tablet (FeroSul) rivaroxaban 20 mg tablet (Xarelto) 20 mg PO DAILY #30 tabs 08/02/25 08/02/25 Rx dexlansoprazole 60 mg 60 mg PO DAILY 8 weeks #56 c aps 08/10/25 Rx capsule,biphase delayed release (Dexilant) sucralfate 1 gram tablet (Carafate) 1 g PO BID 8 weeks #112 tabs 08/10/25 Rx New Prescriptions to Start Prescriptions: Allergies Allergy/AdvReac Type Severity Reaction Status Date / Time Penicillins Allergy Intermediate Rash Verified 08/02/25 13:38 Exam Data for Last 24 hours Vital signs and Labs for Last 24 Hours: Temp Pulse Resp BP Pulse Ox O2 Del Method 98.8 F 71 18 137/87 96 Room Air 08/20/25 22:26 08/20/25 22:26 08/20/25 22:26 08/20/25 22:26 08/20/25 20:00 08/20/25 22:26 Laboratory Results - last 24 hr 08/20/25 18:29: WBC 8.6, RBC 4.89, Hgb 13.9, Hct 40.6, MCV 83.0, MCH 28.4, MCHC 34.2, RDW 12.4, Plt Count 248, MPV 9.8, Neut % (Auto) 52.0, Lymph % (Auto) 28.0, [place] % (Auto) 4.7, Eos % (Auto) 14.2 H, Baso % (Auto) 0.7, Neut # (Auto) 4.5, Lymph # (Auto) 2.4, [place] # (Auto) 0.4, Eos # (Auto) 1.2 H, Baso # (Auto) 0.1, Sodium 131 L, Potassium 4.2, Chloride 100, Carbon Dioxide 27, Anion Gap 8.2, BUN 15, Creatinine 0.90, Estimated Creat Clear 82, Estimated GFR 70, Est GFR ( Amer) 85, Glucose 95, Lactate 0.9, Calcium 9.2, Total Bilirubin 0.6, AST 36, ALT 14, Alkaline Phosphatase 57, Troponin I < 0.01, Total Protein 7.5, Albumin 4.5, Globulin 3.0, Albumin/Globulin Ratio 1.5, Lipase 54, Serum HCG, Qual Negative, Urine Color Yellow, Urine Appearance Clear, Urine pH 6.0, Ur Specific Jud 1.020, Urine Protein Negative, Urine Glucose (UA) 3+, Urine Ketones Negative, Urine Blood Negative, Urine Nitrate Negative, Urine Bilirubin Negative, Urine Urobilinogen 0.2, Ur Leukocyte Esterase Negative, Urine RBC 5- 10, Urine WBC 3-5, Ur Squamous Epith Cells 20-50, Urine Bacteria 4+ I & O for Last 24 hours: Intake & Output 08/17/25 08/18/25 08/19/25 08/20/25 23:59 23:59 23:59 23:59 Weight 60.781 kg Constitutional Constitutional: no acute distress, thin and cooperative *Routine HEENT Exam Head: Present normocephalic and atraumatic Eye: Present EOMI, PERRL and normal accommodation ENT: Present mucous membranes moist *Routine Neck Exam Neck: Present supple, full ROM and trachea midline *Routine Respiratory Exam Respiratory: Present CTA bilaterally, normal respiratory effort and able to speak in complete sentences *Routine Cardiovascular Exam Cardiovascular: Present RRR, Normal S1 and other Comments: Ventricular paced *Routine Abdominal Exam Abdominal: Present soft, normoactive bowel sounds and distended *Routine Rectal Exam Rectal:: deferred *Routine Genitalia Exam Genitalia:: deferred *Routine Extremities Exam Extremities: Present pulses intact and normal capillary refill Routine Back/Spine/Pelvis Exam Back/Spine: Present full ROM *Routine Skin Exam Skin: Present intact, dry, warm and normal turgor *Routine Neurological Exam Neurological: Present alert, oriented X3, CN II-XII intact, moving all extremities and normal speech Routine Psychiatric Exam Psychiatric: Present normal affect, normal thought process, cooperative, good insight, good judgment and depressed H&P: Result Impressions 39-year-old female with a complex cardiac history and GERD presents with refractory abdominal pain. Imaging of the abdomen pelvis was consistent with a diarrheal state. Assessment and Plan *Assessment and plan (1) Abdominal pain: Status: Acute Qualifiers: Abdominal location: multiple sites Qualified Code(s): R10.85 - Abdominal pain of multiple sites Category: Medical Code(s): R10.9 - Unspecified abdominal pain (2) Enteritis: Status: Acute Category: Medical Code(s): K52.9 - Noninfective gastroenteritis and colitis, unspecified (3) Pleural effusion: Status: Acute Category: Medical Code(s): J90 - Pleural effusion, not elsewhere classified (4) GERD (gastroesophageal reflux disease): Status: Acute Qualifiers: Esophagitis presence: esophagitis presence not specified Qualified Code(s): K21.9 - Gastro-esophageal reflux disease without esophagitis Category: Medical Code(s): K21.9 - Gastro-esophageal reflux disease without esophagitis (5) Nephrolithiasis: Status: Acute Category: Medical Code(s): N20.0 - Calculus of kidney Plan Assessment: Intractable abdominal pain Enteritis GERD - 40 mg Protonix IV push twice daily - Will continue 1 g of Carafate 4 times daily - Simethicone 80 mg p.o. every 6 hours as needed dyspepsia - 0.5 mg of hydromorphone IV x 1 and then 0.25 of hydromorphone IV every 4 hours as needed severe pain - Will continue to encourage patient to follow-up with gastroenterology - Patient is currently without any active bleeding - If patient is here on Saturday, will reach out to GI specialist to see if he is willing to see patient while inpatient - She would benefit from upper scope - Obtain stool for culture/GI BioFire - Rule out Campylobacter infection - 750 mg of Levaquin p.o. daily-subject to change per attending - 500 mg of Flagyl every 8 hours-subject to change per attending HFrEF cardiomyopathy Atrial fibrillation: Has pacemaker in place V paced Bilateral small pleural effusion - Will continue DOAC therapy once med rec is updated - Will continue SGLT2 once med rec is updated - Last 2D echo revealed an EF of 35-40% this was performed in September of this year 4 mm right nonobstructing nephrolithiasis - Will strain urine - Patient is currently without any CVA tenderness - No urinary tract infection symptoms noted - May benefit from outpatient urology consult Plan: Admit patient to the MedSurg unit Activity as tolerated Saline lock cardiac diet Attain ESR/CRP/procalcitonin BMP daily Patient is denying any prior history of inflammatory bowel disease 5 mg of [place] p.o. every 4 hours PMR pain 1 mg nicotine patch daily Full code I will discussed this case with attending physician Dr. Oliver and I look forward to more input
[2025-08-20] MEDS: HYDROMORPHONE 2MG/ML SYRINGE 0.5 MG IV (22:58)
[2025-08-21 04:00] VITALS: BP 101/57; PULSE 66; RESP 16; TEMP 36.7; O2SAT 96; BMI 22.6
[2025-08-21] MEDS: HYDROCODONE/APAP 5/325 MG TABLET 1 TAB PO ×3 (04:19→17:28)
[2025-08-21] MEDS: SUCRALFATE 1GM/10ML SUSP UDC 1 GM PO ×4 (05:20→20:46)
[2025-08-21] MEDS: HYDROMORPHONE 2MG/ML SYRINGE 0.25 MG IV ×3 (06:43→19:39)
[2025-08-21 07:39] LABS: Hematocrit 38.3 % (37.0-47.0); Hemoglobin 12.8 g/dL (12.2-16.2); Immature Granulocytes % 0.2 %; Mean Corpuscular HGB Conc 33.4 g/dL (31.8-35.4); Mean Corpuscular Hemoglobin 28.3 pg (27.0-31.2); Mean Corpuscular Volume 84.7 fl (81-99); Nucleated Red Blood Cells % 0 %; Platelet Count 190 K/mm3 (142-424); Red Blood Count 4.52 M/mm3 (4.20-5.40); Red Cell Distribution Width-SD 38.0 fL; White Blood Count 6.1 K/mm3 (4.8-10.8)
[2025-08-21 07:56] LABS: Anion Gap 8.8 mEq/L (5-15); Blood Urea Nitrogen 13 mg/dl (7-17); Calcium 8.5 mg/dl (8.4-10.2); Carbon Dioxide 25 mmol/L (22.0-30.0); Chloride 102 mmol/L (98-107); Creatinine Clearance Estimated 73 mL/min (50-200); Creatinine,Serum 1.00 mg/dl (0.52-1.04); Estimated Glomerular Filt Rate 62 ml/min (>60); GFR (African American) 75 ML/MIN (>60); Glucose 84 mg/dl (74-100); Potassium 3.8 mmoL/L (3.5-5.1); Sodium 132 mmol/L (136-145)
[2025-08-21 08:00] VITALS: BP 98/54; PULSE 67; RESP 16; TEMP 36.4; O2SAT 93
[2025-08-21 08:01] LABS: C-Reactive Protein 1.1 mg/L (0-4)
[2025-08-21 08:17] LABS: Procalcitonin < 0.030 ng/mL (0.0-2.0)
[2025-08-21] MEDS: PANTOPRAZOLE 40MG TABLET 40 MG PO ×2 (08:46→20:47)
--- NOTE | 2025-08-21 09:53 | HMH.PHAINT1 ---
Pharmacy Intervention Comments: MEDICATION RECONCILIATION COMPLETED ON PATIENT USING EXTERNAL FILL HISTORY FROM PHARMACY. -BRAYAN JAUREGUI, HAKAND
[2025-08-21 10:12] VITALS: BP 102/66
[2025-08-21] MEDS: BUSPIRONE HCL 10 MG TABLET 30 MG PO ×2 (11:41→20:46)
[2025-08-21] MEDS: POLYETHYLENE GLYCOL 3350 17 GM PACKET PO (12:19)
--- NOTE | 2025-08-21 14:19 | [facility].PHAAMS2 ---
- Antimicrobial Stewardship Review reviewed - no change Stewardship interventions: reviewed - no change
[2025-08-21] MEDS: KETOROLAC 30MG/ML VIAL 30 MG IV ×2 (15:59→22:19)
[2025-08-21 16:00] VITALS: BP 112/56; PULSE 71; RESP 14; TEMP 36.7; O2SAT 98
--- NOTE | 2025-08-21 17:14 | PC.NURSE ---
Pt is A&Ox4. Vital signs stable tolerating room air. PO abx given per NOV. Straining urine with no signs of kidney stone this shift. Pt continues to c/o of abdominal pain, treated with pain medications per NOV. Pt stated new medications bentyl and toradol did help briefly this shift. Pt resting comfortably supine in bed with no further needs voiced at this time. Call light within reach.
--- NOTE | 2025-08-21 18:43 | P.PN_ITS ---
Subjective *Date: 08/30/25 *Time: 13:49 Interval history: Patient continues to have intermittent issues with abdominal pain, especially post prandial. Decreased oral intake. Started dicyclomine, simethicone, Creon with meals. Follow-up bowel movement with bowel range. Exam Data for Last 24 hours Vital signs and Labs for Last 24 Hours: Temp Pulse Resp BP Pulse Ox O2 Del Method 98.1 F 71 14 112/56 L 98 Room Air 08/21/25 16:00 08/21/25 16:00 08/21/25 16:00 08/21/25 16:00 08/21/25 16:00 08/21/25 17:00 Laboratory Results - last 24 hr 08/20/25 18:29: Sodium 131 L, Potassium 4.2, Chloride 100, Carbon Dioxide 27, Anion Gap 8.2, BUN 15, Creatinine 0.90, Estimated Creat Clear 82, Estimated GFR 70, Est GFR ( Amer) 85, Glucose 95, Lactate 0.9, Calcium 9.2, Total Bilirubin 0.6, AST 36, ALT 14, Alkaline Phosphatase 57, Troponin I < 0.01, Total Protein 7.5, Albumin 4.5, Globulin 3.0, Albumin/Globulin Ratio 1.5, Lipase 54, Serum HCG, Qual Negative, Urine Color Yellow, Urine Appearance Clear, Urine pH 6.0, Ur Specific [place] 1.020, Urine Protein Negative, Urine Glucose (UA) 3+, Urine Ketones Negative, Urine Blood Negative, Urine Nitrate Negative, Urine Bilirubin Negative, Urine Urobilinogen 0.2, Ur Leukocyte Esterase Negative, Urine RBC 5-10, Urine WBC 3-5, Ur Squamous Epith Cells 20-50, Urine Bacteria 4+ 08/21/25 06:35: WBC 6.1 D, RBC 4.52, Hgb 12.8, Hct 38.3, MCV 84.7, MCH 28.3, MCHC 33.4, RDW 12.3, Plt Count 190, MPV 9.9, Neut % (Auto) 44.4, Lymph % (Auto) 31.3, [place] % (Auto) 6.6, Eos % (Auto) 17.0 H, Baso % (Auto) 0.5, Neut # (Auto) 2.7, Lymph # (Auto) 1.9, [place] # (Auto) 0.4, Eos # (Auto) 1.0 H, Baso # (Auto) 0.0, ESR 5, Sodium 132 L, Potassium 3.8, Chloride 102, Carbon Dioxide 25, Anion Gap 8.8, BUN 13, Creatinine 1.00, Estimated Creat Clear 73, Estimated GFR 62, Est GFR ( Amer) 75, Glucose 84, Calcium 8.5, C-Reactive Protein 1.1, Procalcitonin < 0.030 I & O for Last 24 hours: Intake & Output 08/18/25 08/19/25 08/20/25 08/21/25 23:59 23:59 23:59 23:59 Intake Total 1000 / 1000 Output Total 200 / 200 Balance 800 / 800 Weight 60.328 kg 60.328 kg Constitutional Constitutional: no acute distress *Routine HEENT Exam Head: Present normocephalic Eye: Present EOMI and PERRL ENT: Present mucous membranes moist *Routine Neck Exam Neck: Present supple; Absent lymphadenopathy *Routine Respiratory Exam Respiratory: Present CTA bilaterally *Routine Cardiovascular Exam Cardiovascular: Present RRR *Routine Abdominal Exam Abdominal: Present soft, normoactive bowel sounds and tenderness *Routine Extremities Exam Extremities: Absent cyanosis, clubbing or edema *Routine Skin Exam Skin: Present warm; Absent rash *Routine Neurological Exam Neurological: Present alert and oriented X3 Assessment and Plan *Assessment and plan (1) Abdominal pain: Status: Acute Qualifiers: Abdominal location: multiple sites Qualified Code(s): R10.85 - Abdominal pain of multiple sites Category: Medical Code(s): R10.9 - Unspecified abdominal pain (2) Enteritis: Status: Acute Category: Medical Code(s): K52.9 - Noninfective gastroenteritis and colitis, unspecified (3) Pleural effusion: Status: Acute Category: Medical Code(s): J90 - Pleural effusion, not elsewhere classified (4) GERD (gastroesophageal reflux disease): Status: Acute Qualifiers: Esophagitis presence: esophagitis presence not specified Qualified Code(s): K21.9 - Gastro-esophageal reflux disease without esophagitis Category: Medical Code(s): K21.9 - Gastro-esophageal reflux disease without esophagitis (5) Nephrolithiasis: Status: Acute Category: Medical Code(s): N20.0 - Calculus of kidney Plan Alysa Mancini is a 39-year-old female who presented with nonspecific intractable abdominal pain, decreased p.o. intake and admitted for the same in the setting of enteritis on CT abdomen/pelvis. Symptoms now seem more consistent with postprandial epigastric pain, the patient does have a history of urinary incontinence s/p bladder mesh placement and also has suprapubic tenderness. Tested positive for C. difficile, though has a history of constipation. #Acute on chronic abdominal pain #C. difficile enteritis #GERD #Nonobstructing nephrolithiasis, resolving #History of constipation ? Patient presented with acute on chronic nonspecific intractable abdominal pain, decreased p.o. intake, CT abdomen/pelvis suggested enteritis/nondistended fluid-filled loops of small bowel. Also noted 4 mm right nephrolithiasis, which patient has been passing stones through admission. ? Patient has had a long history of nonspecific abdominal pains, both associated and not associated with meals. Now, patient believes it is more so postprandial and epigastric in focality. ? Of note, patient has had about a 80 pound intentional weight loss using GLP-1 agonist, discontinued since March 2025. No evidence of median arcuate ligament syndrome on CT. ? No appreciable mesenteric artery stenosis on CT abdomen/pelvis to suggest mesenteric angina. Lactic acid normal. Will consider angiography study if pain persist. ? Irritable bowel syndrome also on the differential given patient's underlying anxiety. ? Patient continues to have intermittent abdominal pain, including postprandial. Will start dicyclomine scheduled, Creon with meals, simethicone scheduled. ? Follow-up response, p.o. intake over the next day. ? GI consulted, pending further recommendations. #Chronic HFrEF s/p [employer] #History of paroxysmal A-fib, SVT ? Patient has a complex cardiac history with the above. Seems to be related to cardiomyopathy. Normal coronaries in 2021. ? ECHO December 2024 showed LVEF 40%. Currently euvolemic. ? Follow-up DOAC status in the morning. #Anxiety/depression ? Continue home buspirone, gabapentin, hydroxyzine, Ativan. Full code DVT prophylaxis: Lovenox 40 mg
[2025-08-21 20:00] VITALS: BP 127/69; PULSE 83; RESP 16; TEMP 36.8; O2SAT 93
[2025-08-21] MEDS: TRAZODONE 50MG TABLET 100 MG PO (20:46)
[2025-08-22] MEDS: HYDROCODONE/APAP 5/325 MG TABLET 1 TAB PO ×3 (00:04→17:42)
[2025-08-22 04:00] VITALS: BP 93/54; PULSE 77; RESP 16; TEMP 36.3; O2SAT 96; BMI 22.5
[2025-08-22] MEDS: SUCRALFATE 1GM/10ML SUSP UDC 1 GM PO (06:06)
[2025-08-22 07:20] LABS: Hematocrit 36.5 % (37.0-47.0); Hemoglobin 12.7 g/dL (12.2-16.2); Immature Granulocytes % 0.1 %; Mean Corpuscular HGB Conc 34.8 g/dL (31.8-35.4); Mean Corpuscular Hemoglobin 29.3 pg (27.0-31.2); Mean Corpuscular Volume 84.1 fl (81-99); Nucleated Red Blood Cells % 0 %; Platelet Count 194 K/mm3 (142-424); Red Blood Count 4.34 M/mm3 (4.20-5.40); Red Cell Distribution Width-SD 37.1 fL; White Blood Count 7.0 K/mm3 (4.8-10.8)
[2025-08-22 07:46] LABS: Anion Gap 9.0 mEq/L (5-15); Blood Urea Nitrogen 21 mg/dl (7-17); Calcium 8.5 mg/dl (8.4-10.2); Carbon Dioxide 25 mmol/L (22.0-30.0); Chloride 101 mmol/L (98-107); Creatinine Clearance Estimated 66 mL/min (50-200); Creatinine,Serum 1.10 mg/dl (0.52-1.04); Estimated Glomerular Filt Rate 56 ml/min (>60); GFR (African American) 68 ML/MIN (>60); Glucose 83 mg/dl (74-100); Potassium 4.0 mmoL/L (3.5-5.1); Sodium 131 mmol/L (136-145)
[2025-08-22 08:00] VITALS: BP 100/50; PULSE 71; RESP 12; TEMP 36.4; O2SAT 94
[2025-08-22] MEDS: HYDROMORPHONE 2MG/ML SYRINGE 0.25 MG IV ×2 (08:52→19:40)
[2025-08-22] MEDS: POLYETHYLENE GLYCOL 3350 17 GM PACKET 34 GM PO (08:53)
[2025-08-22] MEDS: BUSPIRONE HCL 10 MG TABLET 30 MG PO ×2 (08:54→20:44)
[2025-08-22] MEDS: BISACODYL 5MG TABLET 10 MG PO (08:54)
[2025-08-22 08:55] LABS: Cyclospora Cayetanesis Not Detected (NotDetected); Salmonella, PCR Not Detected (NotDetected); Shiga-like toxin E coli Not Detected (NotDetected); Shigella Enterovasive E coli Not Detected (NotDetected); Vibrio, PCR Not Detected (NotDetected); Yersinia Entercolitica, PCR Not Detected (NotDetected)
[2025-08-22] MEDS: PANTOPRAZOLE 40MG TABLET 40 MG PO (08:55)
--- NOTE | 2025-08-22 09:32 | [facility].PHAAMS2 ---
- Antimicrobial Stewardship Review culture & sensitivity review Stewardship interventions: culture & sensitivity review (URINE CX SHOWS CONTAMINATION. RE-CULTURE)
[2025-08-22] MEDS: LIPASE/PROTEASE/AMYLASE 1 EACH CAPSULE.DR 2 EACH PO (10:20)
[2025-08-22 11:00] LABS: Clostridium Difficile A/B, PCR Detected (NotDetected)
[2025-08-22] MEDS: VANCOMYCIN HCL 50MG/ML 150ML KIT 125 MG PO ×4 (13:02→20:45)
[2025-08-22] MEDS: KETOROLAC 30MG/ML VIAL 30 MG IV (14:09)
--- NOTE | 2025-08-22 14:14 | P.PN_ITS ---
Subjective *Date: 08/22/25 *Time: 14:14 Interval history: This morning, and again this afternoon, patient is feeling better. P.o. intake is improving. Patient had been receiving Flagyl, and 2 doses of oral vancomycin thus far. Likely contributing to improvement in C. difficile enteritis symptoms. Exam Data for Last 24 hours Vital signs and Labs for Last 24 Hours: Temp Pulse Resp BP Pulse Ox O2 Del Method 97.6 F 71 12 100/50 L 94 L Room Air 08/22/25 08:00 08/22/25 08:00 08/22/25 08:00 08/22/25 08:00 08/22/25 08:00 08/22/25 11:00 Laboratory Results - last 24 hr 08/20/25 08:47: Stl C. cayetanensis PCR Not detected, Stool Campylobacter PCR Not detected, Stl C.difficile Tox PCR Detected A, Stool Cryptosporidium PCR Not detected, Stl E.coli Shiga Tox PCR Not detected, Stool Giardia Lamblia PCR Not detected, Stool Salmonella PCR Not detected, Stl Shigella/EIEC PCR Not detected, St Y.enterocolitica PCR Not detected, Stool Vibrio (PCR) Not detected, Stl Norovirus GI/GII PCR Not detected 08/22/25 06:22: WBC 7.0, RBC 4.34, Hgb 12.7, Hct 36.5 L, MCV 84.1, MCH 29.3, MCHC 34.8, RDW 12.1, Plt Count 194, MPV 10.2, Neut % (Auto) 61.2, Lymph % (Auto) 21.6, [place] % (Auto) 5.0, Eos % (Auto) 11.7, Baso % (Auto) 0.4, Neut # (Auto) 4.3, Lymph # (Auto) 1.5, [place] # (Auto) 0.4, Eos # (Auto) 0.8 H, Baso # (Auto) 0.0, Sodium 131 L, Potassium 4.0, Chloride 101, Carbon Dioxide 25, Anion Gap 9.0, BUN 21 H D, Creatinine 1.10 H, Estimated Creat Clear 66, Estimated GFR 56 L , Est GFR ( Amer) 68, Glucose 83, Calcium 8.5 I & O for Last 24 hours: Intake & Output 12/0408/20/25 08/21/25 08/22/25 23:59 23:59 23:59 23:59 Intake Total 1300 / 1300 480 / 480 Output Total 200 / 200 150 / 150 Balance 1100 / 1100 330 / 330 Weight 60.328 kg 60.328 kg 59.874 kg Microbiology Reports for the Last 24 Hours: Microbiology 08/20/25 18:29 Urine,Clean Catch Urine Culture - Final Multiple organisms, suggests contamination. Constitutional Constitutional: no acute distress *Routine HEENT Exam Head: Present normocephalic Eye: Present EOMI and PERRL ENT: Present mucous membranes moist *Routine Neck Exam Neck: Present supple; Absent lymphadenopathy *Routine Respiratory Exam Respiratory: Present CTA bilaterally *Routine Cardiovascular Exam Cardiovascular: Present RRR *Routine Abdominal Exam Abdominal: Present soft, normoactive bowel sounds and tenderness *Routine Extremities Exam Extremities: Absent cyanosis, clubbing or edema *Routine Skin Exam Skin: Present warm; Absent rash *Routine Neurological Exam Neurological: Present alert and oriented X3 Assessment and Plan *Assessment and plan (1) GERD (gastroesophageal reflux disease): Status: Acute Qualifiers: Esophagitis presence: esophagitis presence not specified Qualified Code(s): K21.9 - Gastro-esophageal reflux disease without esophagitis Category: Medical Code(s): K21.9 - Gastro-esophageal reflux disease without esophagitis (2) Enteritis: Status: Acute Category: Medical Code(s): K52.9 - Noninfective gastroenteritis and colitis, unspecified (3) C. difficile enteritis: Status: Acute Category: Medical Code(s): A04.72 - Enterocolitis due to Clostridium difficile, not specified as recurrent Plan Alysa Mancini is a 39-year-old female who presented with nonspecific intractable abdominal pain, decreased p.o. intake and admitted for the same in the setting of enteritis on CT abdomen/pelvis. Symptoms now seem more consistent with postprandial epigastric pain, the patient does have a history of urinary incontinence s/p bladder mesh placement and also has suprapubic tenderness. Tested positive for C. difficile, though has a history of constipation. #Acute on chronic abdominal pain #C. difficile enteritis #GERD #Nonobstructing nephrolithiasis, resolving #History of constipation ? Patient presented with acute on chronic nonspecific intractable abdominal pain, decreased p.o. intake, CT abdomen/pelvis suggested enteritis/nondistended fluid-filled loops of small bowel. Also noted 4 mm right nephrolithiasis, which patient has been passing stones through admission. ? Patient has had a long history of nonspecific abdominal pains, both associated and not associated with meals. Now, patient believes it is more so postprandial and epigastric in focality. ? Did incidentally test positive for C. difficile, which would explain the enteritis and possibly the symptoms. Patient has been on and off antibiotics, PPIs. Patient states she has been having foul-smelling bowel movements for several months, around which time her abdominal pain started. ? Of note, patient has had about a 80 pound intentional weight loss using GLP-1 agonist, discontinued since March 2025. No evidence of median arcuate ligament syndrome on CT. ? No appreciable mesenteric artery stenosis on CT abdomen/pelvis to suggest mesenteric angina. Lactic acid normal. Will consider angiography study if pain persist. ? Irritable bowel syndrome also on the differential given patient's underlying anxiety. ? This morning, and again this afternoon, patient is feeling better. P.o. intake is improving. Patient had been receiving Flagyl, and 2 doses of oral vancomycin thus far. Likely contributing to improvement in C. difficile enteritis symptoms. ? Started oral vancomycin 150 mg every 6 hours day 09/25. ? Follow-up response, p.o. intake over the next day. ? Discontinued dicyclomine, ceftriaxone, Flagyl, Creon, simethicone ever started here. ? Switched PPI to famotidine 40 mg twice daily. ? GI consulted, pending further recommendations. #Chronic HFrEF s/p [employer]OP[employer]-D #History of paroxysmal A-fib, SVT ? Patient has a complex cardiac history with the above. Seems to be related to cardiomyopathy. Normal coronaries in 2021. ? ECHO December 2024 showed LVEF 40%. Currently euvolemic. ? Follow-up DOAC status in the morning. #Anxiety/depression ? Continue home buspirone, gabapentin, hydroxyzine, Ativan. Full code DVT prophylaxis: Lovenox 40 mg
[2025-08-22 16:00] VITALS: BP 100/58; BP 90/50; PULSE 78; RESP 12; TEMP 36.7; O2SAT 94
[2025-08-22] MEDS: RINGERS SOLUTION,LACTATED 500 ML IV (17:10)
--- NOTE | 2025-08-22 17:55 | PC.NURSE ---
Pt is A&Ox4. Vital signs stable tolerating room air. Pt blood pressure was hypotensive this afternoon. Hospitalist notfied. LR fluid bolus infusing per MAR at this time. Pt in contact precautions d/t testing positive for c-diff. Pt has continued to c/o abdominal pain, medicated with pain medication per MAR. PRN anxiety medications given per MAR per pt request. Urine sample to be collected still. NPO at midnight for GI consult. Pt resting comfortably supine in bed with no further needs voiced at this time. Call light within reach.
[2025-08-22 20:00] VITALS: BP 87/50; PULSE 76; RESP 16; TEMP 36.7; O2SAT 95
[2025-08-22 20:17] VITALS: BMI 22.5
[2025-08-22] MEDS: FAMOTIDINE 20MG TABLET 40 MG PO (20:44)
[2025-08-22] MEDS: TRAZODONE 50MG TABLET 100 MG PO (20:44)
[2025-08-22] MEDS: 0.9 % SODIUM CHLORIDE 1000ML 500 ML 250 ML IV (20:45)
[2025-08-23] VITALS (9 sets, daily range): BP systolic 89–124; BP diastolic 45–76; PULSE 75–84; RESP 14–18; TEMP 36.6–37; O2SAT 95–99; BMI 22.6
--- NOTE | 2025-08-23 04:00 | PC.NURSE ---
Pt A&OX4 and has tolerated room air. She has complained of abdominal pain multiple times and was medicated per NOV. Pt was hypotensive. Hospitalist notified and pt received a 500ml bolus. She has remained on contact precautions for C-Dif. Currently resting with call light within reach.
[2025-08-23 07:11] LABS: Hematocrit 35.9 % (37.0-47.0); Hemoglobin 11.5 g/dL (12.2-16.2); Mean Corpuscular HGB Conc 32.0 g/dL (31.8-35.4); Mean Corpuscular Hemoglobin 27.3 pg (27.0-31.2); Mean Corpuscular Volume 85.1 fl (81-99); Nucleated Red Blood Cells % 0 %; Platelet Count 173 K/mm3 (142-424); Red Blood Count 4.22 M/mm3 (4.20-5.40); Red Cell Distribution Width-SD 38.4 fL; White Blood Count 5.3 K/mm3 (4.8-10.8)
[2025-08-23 07:12] LABS: Immature Granulocytes % 0.4 %
[2025-08-23 07:27] LABS: Chloride 107 mmol/L (98-107); Potassium 4.0 mmoL/L (3.5-5.1); Sodium 140 mmol/L (136-145)
[2025-08-23 07:30] LABS: Anion Gap 10.0 mEq/L (5-15); Blood Urea Nitrogen 19 mg/dl (7-17); Calcium 7.6 mg/dl (8.4-10.2); Carbon Dioxide 27 mmol/L (22.0-30.0); Creatinine Clearance Estimated 67 mL/min (50-200); Creatinine,Serum 1.10 mg/dl (0.52-1.04); Estimated Glomerular Filt Rate 56 ml/min (>60); GFR (African American) 68 ML/MIN (>60); Glucose 124 mg/dl (74-100)
[2025-08-23] MEDS: FAMOTIDINE 20MG TABLET 40 MG PO ×2 (09:16→19:01)
[2025-08-23] MEDS: BUSPIRONE HCL 10 MG TABLET 30 MG PO (09:16)
[2025-08-23] MEDS: VANCOMYCIN HCL 50MG/ML 150ML KIT 125 MG PO ×2 (09:17→19:01)
--- NOTE | 2025-08-23 09:28 | HMH.PHAAMS2 ---
- Antimicrobial Stewardship Review culture & sensitivity review Stewardship interventions: culture & sensitivity review (VANCOMYCIN PO ORDERED, WBC WNL, AFEBRILE, STOOL POSITIVE FOR C DIFF.)
[2025-08-23] MEDS: KETOROLAC 30MG/ML VIAL 30 MG IV (10:00)
[2025-08-23] MEDS: SIMETHICONE 80MG CHEWABLE TABLET 80 MG PO ×2 (11:06→17:11)
[2025-08-23] MEDS: LIPASE/PROTEASE/AMYLASE 1 EACH CAPSULE.DR 2 EACH PO ×2 (11:07→17:12)
--- NOTE | 2025-08-23 11:16 | EXP.GE.CONS ---
History of Present Illness *Admission Date: 08/20/25 *History of present illness: Ms. Mancini is a 39-year-old inpatient female who was admitted with intractable abdominal pain. The patient does present with several week history of severe excruciating epigastric abdominal pain. She has been to the emergency department twice in the last couple of weeks. She has been taking a bottle of Mylanta every couple of days. She has had a lot of bloating and nausea. She recently had C. difficile. Within the last couple of weeks, at the time of her initial ED visit, CAT scan was performed and showed no acute findings. Her more recent CAT scan on this admit showed marked distended fluid-filled loops of small bowel which was nonspecific. The patient has been taking Dexilant. The patient does have a history of outlet dysfunction constipation. The patient reports no heartburn, reflux or dysphagia. She has had some chest discomfort and early satiety. She reports no belching. [facility] Disclaimer: The information contained in this section may have been updated after the patient was seen, as this information can be updated by other users. Medical History (Updated 08/23/25 @ 11:20 by Mahad Robins II, MD) Afib PAF (paroxysmal atrial fibrillation) Constipation Gestational diabetes SVT (supraventricular tachycardia) History of pacemaker NYHA class 3 systolic congestive heart failure with reduced left ventricular function NYHA class 2 heart failure with reduced ejection fraction High pulmonary arterial pressure Hypotension Syncope Elevated serum creatinine Creatinine elevation Kidney stone Family history of ischemic heart disease (IHD) Umbilical hernia Surgical History History of bladder surgery History of renal stent History of oral surgery History of breast biopsy Family History Grandfather Family history of myocardial infarction Sister Family history of cancer Father Family history of cancer Social History Smoking Status: Current every day smoker tobacco type: e-cigarettes second hand exposure: No alcohol intake: former substance use type: denies use current occupational status: unemployed Travel in the last 8 weeks?: None household members: family housing: house marital status: current occupational exposures/hazards: No caffeine: Yes Have you lived/traveled outside [place] in past 30 days?: No Contact w/someone who lives/traveled outside [place] past 30 days?: No Exposure to someone with infectious disease in past 14 days?: No Do you have a fever (greater than 100.4 F or 38 C)?: No Have you tested positive for COVID-19?: No Exposed to someone with COVID-19 in past 14 days?: No Do you have a sore throat?: No Do you have a cough?: No Do you have any weakness?: No Do you have any diarrhea?: No Are you experiencing any unusual bleeding?: No Do you have any muscle aches/pain?: No Do you have any abdominal pain?: No Are you experiencing loss of taste or smell?: No Review of Systems *Neurologic Neurologic: Reports system reviewed and no additional complaints, except as documented Meds Home Medications and Allergies Home Medications ?Medication ?Instructions ?Recorded ?Confirmed ?Type loratadine 10 mg tablet (Allergy 10 mg PO DAILY 05/05/21 08/20/25 History Relief (loratadine)) omeprazole 40 mg capsule,delayed 40 mg PO DAILY 05/05/21 08/20/25 History release buspirone 30 mg tablet 30 mg PO BID 09/13/23 08/20/25 History hydroxyzine HCl 50 mg tablet 100 mg PO TIDP PRN Anxiety 09/13/23 08/20/25 History lorazepam 1 mg tablet 1 mg PO TIDP PRN Anxiety 09/13/23 08/20/25 History dextromethorphan IR 45 1 tab PO BID 12/24/24 08/20/25 History mg-bupropion ER 105 mg biphasic tablet (Auvelity) glycopyrrolate 2 mg tablet 2 mg PO BID 01/21/25 08/20/25 History nadolol 20 mg tablet 10 mg (1/2 x 20 mg) PO DAILY #30 04/12/25 08/20/25 Rx tabs gabapentin 100 mg capsule 100 mg PO BID 06/01/25 08/20/25 History prucalopride 2 mg tablet 2 mg PO DAILY #30 tabs 06/01/25 08/20/25 Rx trazodone 100 mg tablet 100 mg PO HS 06/01/25 08/20/25 History ferrous sulfate 325 mg (65 mg 325 mg PO DAILY 08/02/25 08/20/25 History iron) tablet (FeroSul) dexlansoprazole 60 mg 60 mg PO DAILY 8 weeks #56 caps 08/10/25 08/20/25 Rx capsule,biphase delayed release (Dexilant) sucralfate 1 gram tablet (Carafate) 1 g PO BID 08/20/25 08/21/25 History empagliflozin 10 mg tablet 10 mg PO DAILY 08/21/25 08/21/25 History (Jardiance) nitrofurantoin 100 mg PO HS 08/21/25 08/21/25 History monohydrate/macrocrystals 100 mg capsule (Macrobid) rivaroxaban 20 mg tablet (Xarelto) 20 mg PO QPMWITHMEAL 08/21/25 08/21/25 History New Prescriptions to Start Prescriptions: Allergies Allergy/AdvReac Type Severity Reaction Status Date / Time Penicillins Allergy Intermediate Rash Verified 08/02/25 13:38 Exam (Inpt) Vital signs and Labs for Last 24 Hours: Temp Pulse Resp BP Pulse Ox O2 Del Method 98.0 F 81 14 107/57 L 96 Room Air 08/23/25 08:00 08/23/25 08:00 08/23/25 08:00 08/23/25 08:00 08/23/25 08:00 08/23/25 09:00 Laboratory Results - last 24 hr 08/22/25 18:18: Ur C. trach DNA (PCR) Negative, U N.gonorrhoeae DNA PCR Negative, T. vaginalis (PCR) Negative 08/23/25 06:06: WBC 5.3, RBC 4.22, Hgb 11.5 L, Hct 35.9 L, MCV 85.1, MCH 27.3, MCHC 32.0, RDW 12.4, Plt Count 173, MPV 10.0, Neut % (Auto) 64.4, Lymph % (Auto) 12.4, [place] % (Auto) 7.9, Eos % (Auto) 14.3 H, Baso % (Auto) 0.6, Neut # (Auto) 3.4, Lymph # (Auto) 0.7, [place] # (Auto) 0.4, Eos # (Auto) 0.8 H, Baso # (Auto) 0.0, Sodium 140, Potassium 4.0, Chloride 107, Carbon Dioxide 27, Anion Gap 10.0, BUN 19 H, Creatinine 1.10 H, Estimated Creat Clear 67, Estimated GFR 56 L, Est GFR ( Amer) 68, Glucose 124 H D, Calcium 7.6 L I & O for Labs for Last 24 Hours: Intake & Output 08/20/25 08/21/25 08/22/25 08/23/25 23:59 23:59 23:59 23:59 Intake Total 1300 / 1300 2490 / 2490 Output Total 200 / 200 150 / 150 Balance 1100 / 1100 2340 / 2340 Weight 133 lb 133 lb 132 lb 133 lb Comments:: Normoactive bowel sounds, soft, tenderness in the epigastrium, no rebound or guarding, no masses, no hernias Results Labs 08/23/25 06:06 08/23/25 06:06 Labs: Laboratory Results - last 24 hr 08/22/25 18:18: Ur C. trach DNA (PCR) Negative, U N.gonorrhoeae DNA PCR Negative, T. vaginalis (PCR) Negative 08/23/25 06:06: WBC 5.3, RBC 4.22, Hgb 11.5 L, Hct 35.9 L, MCV 85.1, MCH 27.3, MCHC 32.0, RDW 12.4, Plt Count 173, MPV 10.0, Neut % (Auto) 64.4, Lymph % (Auto) 12.4, [place] % (Auto) 7.9, Eos % (Auto) 14.3 H, Baso % (Auto) 0.6, Neut # (Auto) 3.4, Lymph # (Auto) 0.7, [place] # (Auto) 0.4, Eos # (Auto) 0.8 H, Baso # (Auto) 0.0, Sodium 140, Potassium 4.0, Chloride 107, Carbon Dioxide 27, Anion Gap 10.0, BUN 19 H, Creatinine 1.10 H, Estimated Creat Clear 67, Estimated GFR 56 L, Est GFR ( Amer) 68, Glucose 124 H D, Calcium 7.6 L Assessment and Plan *Assessment and plan (1) Epigastric abdominal pain: Status: Acute Category: Medical Code(s): R10.13 - Epigastric pain (2) Nausea: Status: Acute Category: Medical Code(s): R11.0 - Nausea (3) Bloating: Status: Acute Category: Medical Code(s): R14.0 - Abdominal distension (gaseous) Plan 1. Epigastric abdominal pain (intractable. The patient does have marked bloating and nausea. The patient did have some nondistended fluid-filled loops of small bowel suggestive of enteritis. I will plan diagnostic EGD today for further evaluation. She does state that her last EGD was 20 years ago.)
[2025-08-23 14:12] LABS: Deamidated Gliadin Abs, IgA 3 units (0-19); Deamidated Gliadin Abs, IgG 3 units (0-19)
--- NOTE | 2025-08-23 14:21 | P.PCN_ITS ---
[facility] Procedure Note Date: 08/23/25 Time: 14:42 Procedure Note:: Upper Endoscopy Procedure Report: Esophagogastroduodenoscopy with cold biopsies Endoscopost: Mahad Robins II, MD Referring Physician: Arvind Yu MD Date of Procedure: August 23, 2025 Equipment: Olympus GIF-1100 standard upper endoscope Sedation: MAC sedation Indications: Ms. Mancini is a 39-year-old inpatient female who is here for diagnostic EGD. She was admitted with intractable abdominal pain. The patient does present with several week history of severe excruciating epigastric abdominal pain. She has been to the emergency department twice in the last couple of weeks. She has been taking a bottle of Mylanta every couple of days. She has had a lot of bloating and nausea. She recently had C. difficile. Within the last couple of weeks, at the time of her initial ED visit, CAT scan was performed and showed no acute findings. Her more recent CAT scan on this admit showed marked distended fluid-filled loops of small bowel which was nonspecific. The patient has been taking Dexilant. The patient does have a history of outlet dysfunction constipation. The patient reports no heartburn, reflux or dysphagia. She has had some chest discomfort and early satiety. She reports no belching. Procedure: Prior to the procedure, a history and physical exam was performed, and patient's medications and allergies were reviewed. The risks, benefits and alternatives of the sedation and procedure were discussed with the patient. All questions were answered and informed consent was obtained. The patient was brought to the procedure room. Patient identification and proposed procedure were verified by the physician and the nurse. The patient was placed in a left lateral decubitus position and the scope was passed under direct vision. Throughout the procedure, the patient's blood pressure, pulse, and oxygen saturations were monitored continuously. The upper GI endoscopy was accomplished without difficulty. The patient tolerated the procedure well. Findings: The scope was passed directly into the upper esophagus and advanced to the third portion of the duodenum. The post bulbar duodenum and duodenal bulb were normal with normal mucosa and conniventes. 2 cold biopsies were taken from the second portion of the duodenum for the disaccharidase assay. The scope was withdrawn through a normal duodenal bulb and pylorus into the stomach. There was bile reflux with moderate linear reactive gastropathy of the antrum and body of the stomach. Cold biopsies were obtained from the antrum and lesser curvature. The fundus of the stomach was normal. Upon retroflexion there was no hiatal hernia. The scope was then withdrawn into the esophagus. There was no evidence of reflux esophagitis or Kohli's. The remainder of the esophageal mucosa was normal. Impression: 1. Bile reflux with moderate linear reactive gastropathy Plan: I will follow-up the biopsies and disaccharidase assay and discussed the findings with the patient and family. The patient does have functional d yspepsia and IBS. We will discuss treatment options.
--- NOTE | 2025-08-23 17:28 | EXP.DC.SUM ---
General Admission date:: 08/20/25 HPI HPI HPI: Ms. Mancini is a 39-year-old inpatient female who was admitted with intractable abdominal pain. The patient does present with several week history of severe excruciating epigastric abdominal pain. She has been to the emergency department twice in the last couple of weeks. She has been taking a bottle of Mylanta every couple of days. She has had a lot of bloating and nausea. She recently had C. difficile. Within the last couple of weeks, at the time of her initial ED visit, CAT scan was performed and showed no acute findings. Her more recent CAT scan on this admit showed marked distended fluid-filled loops of small bowel which was nonspecific. The patient has been taking Dexilant. The patient does have a history of outlet dysfunction constipation. The patient reports no heartburn, reflux or dysphagia. She has had some chest discomfort and early satiety. She reports no belching. Hospital Course Hospital Course Hospital Course: Alysa Mancini is a 39-year-old female who presented with nonspecific intractable abdominal pain, decreased p.o. intake and admitted for the same in the setting of enteritis on CT abdomen/pelvis. Symptoms now seem more consistent with postprandial epigastric pain, the patient does have a history of urinary incontinence s/p bladder mesh placement and also has suprapubic tenderness. Tested positive for C. difficile, though has a history of constipation. #Acute on chronic abdominal pain #C. difficile enteritis #GERD #Nonobstructing nephrolithiasis, resolving #History of constipation ? Patient presented with acute on chronic nonspecific intractable abdominal pain, decreased p.o. intake, CT abdomen/pelvis suggested enteritis/nondistended fluid-filled loops of small bowel. Also noted 4 mm right nephrolithiasis, which patient has been passing stones through admission. ? Patient has had a long history of nonspecific abdominal pains, both associated and not associated with meals. Now, patient believes it is more so postprandial and epigastric in focality. ? Did incidentally test positive for C. difficile, which would explain the enteritis and possibly the symptoms. Patient has been on and off antibiotics, PPIs. Patient states she has been having foul-smelling bowel movements for several months, around which time her abdominal pain started. ? Of note, patient has had about a 80 pound intentional weight loss using GLP-1 agonist, discontinued since March 2025. No evidence of median arcuate ligament syndrome on CT. ? No appreciable mesenteric artery stenosis on CT abdomen/pelvis to suggest mesenteric angina. Lactic acid normal. Will consider angiography study if pain persist. ? Irritable bowel syndrome also on the differential given patient's underlying anxiety. ? Negative for celiac's antibodies during admission. ? GI consulted, s/p EGD on 08/23/2025 which showed bile acid reflux but otherwise unremarkable findings. ? Overall, patient has made some improvement in symptoms. Seems to be eating with less issues including abdominal pain. ? Counseled patient on the regularity of bowel movements, and adjusting bowel regimen as previously prescribed. Also finishing course of vancomycin for C. difficile. ? Continue oral vancomycin 150 mg every 6 hours day for total of 10 days. ? Also discharged with dicyclomine, Creon with meals as needed. ? Switched PPI to famotidine 40 mg twice daily. #Chronic HFrEF s/p [employer] #History of paroxysmal A-fib, SVT ? Patient has a complex cardiac history with the above. Seems to be related to cardiomyopathy. Normal coronaries in 2021. ? ECHO December 2024 showed LVEF 40%. Currently euvolemic. ? Follow-up DOAC status in the morning. #Anxiety/depression ? Continue home buspirone, gabapentin, hydroxyzine, Ativan. Total time spent on discharge: 40 minutes on chart review, counseling, documentation, and direct care with patient. Exam Data for Last 24 hours Vital signs and Labs for Last 24 Hours: Temp Pulse Resp BP Pulse Ox O2 Del Method 98.6 F 75 18 124/76 97 Room Air 08/23/25 16:05 08/23/25 16:05 08/23/25 16:05 08/23/25 16:05 08/23/25 16:05 08/23/25 16:05 Laboratory Results - last 24 hr 08/22/25 06:22: Endomysial IgA Ab Negative, Tiss Transglutamin IgG <2, Tiss Transglutamin IgA <2, Gliadin (Deamidat) IgG 3, Gliadin (Deamidat) IgA 3 08/22/25 18:18: Ur C. trach DNA (PCR) Negative, U N.gonorrhoeae DNA PCR Negative, T. vaginalis (PCR) Negative 08/23/25 06:06: WBC 5.3, RBC 4.22, Hgb 11.5 L, Hct 35.9 L, MCV 85.1, MCH 27.3, MCHC 32.0, RDW 12.4, Plt Count 173, MPV 10.0, Neut % (Auto) 64.4, Lymph % (Auto) 12.4, [place] % (Auto) 7.9, Eos % (Auto) 14.3 H, Baso % (Auto) 0.6, Neut # (Auto) 3.4, Lymph # (Auto) 0.7, [place] # (Auto) 0.4, Eos # (Auto) 0.8 H, Baso # (Auto) 0.0, Sodium 140, Potassium 4.0, Chloride 107, Carbon Dioxide 27, Anion Gap 10.0, BUN 19 H, Creatinine 1.10 H, Estimated Creat Clear 67, Estimated GFR 56 L, Est GFR ( Amer) 68, Glucose 124 H D, Calcium 7.6 L I & O for Last 24 hours: Intake & Output 08/20/25 08/21/25 08/22/25 08/23/25 23:59 23:59 23:59 23:59 Intake Total 1300 / 1300 2490 / 2490 Output Total 200 / 200 150 / 150 Balance 1100 / 1100 2340 / 2340 Weight 60.328 kg 60.328 kg 59.874 kg 60.328 kg Constitutional Constitutional: no acute distress *Routine HEENT Exam Head: Present normocephalic Eye: Present EOMI and PERRL ENT: Present mucous membranes moist *Routine Neck Exam Neck: Present supple; Absent lymphadenopathy *Routine Respiratory Exam Respiratory: Present CTA bilaterally *Routine Cardiovascular Exam Cardiovascular: Present RRR *Routine Abdominal Exam Abdominal: Present soft, normoactive bowel sounds and tenderness *Routine Extremities Exam Extremities: Absent cyanosis, clubbing or edema *Routine Skin Exam Skin: Present warm; Absent rash *Routine Neurological Exam Neurological: Present alert and oriented X3 Results Data Completed and Pending Labs on day of discharge: Labs from last 24 hours 08/23/25 08/22/25 08/22/25 06:06 18:18 06:22 WBC 5.3 RBC 4.22 Hgb 11.5 L Hct 35.9 L MCV 85.1 MCH 27.3 MCHC 32.0 RDW 12.4 Plt Count 173 MPV 10.0 Neut % (Auto) 64.4 Lymph % (Auto) 12.4 [place] % (Auto) 7.9 Eos % (Auto) 14.3 H Baso % (Auto) 0.6 Neut # (Auto) 3.4 Lymph # (Auto) 0.7 [place] # (Auto) 0.4 Eos # (Auto) 0.8 H Baso # (Auto) 0.0 Sodium 140 Potassium 4.0 Chloride 107 Carbon Dioxide 27 Anion Gap 10.0 BUN 19 H Creatinine 1.10 H Estimated Creat Clear 67 Estimated GFR 56 L Est GFR ( Amer) 68 Glucose 124 H D Calcium 7.6 L Endomysial IgA Ab Negative Tiss Transglutamin IgG <2 Tiss Transglutamin IgA <2 Gliadin (Deamidat) IgG 3 Gliadin (Deamidat) IgA 3 Ur C. trach DNA (PCR) Negative U N.gonorrhoeae DNA PCR Negative T. vaginalis (PCR) Negative DS: Diagnosis Discharge Diagnosis (1) Epigastric abdominal pain: Status: Acute Code(s): R10.13 - Epigastric pain (2) Nausea: Status: Acute Code(s): R11.0 - Nausea (3) Bloating: Status: Acute Code(s): R14.0 - Abdominal distension (gaseous) Meds Home Medications and Allergies Home Medications ?Medication ?Instructions ?Recorded ?Confirmed ?Type loratadine 10 mg tablet (Allergy 10 mg PO DAILY 05/05/21 08/20/25 History Relief (loratadine)) buspirone 30 mg tablet 30 mg PO BID 09/13/23 08/20/25 History hydroxyzine HCl 50 mg tablet 100 mg PO TIDP PRN Anxiety 09/13/23 08/20/25 History lorazepam 1 mg tablet 1 mg PO TIDP PRN Anxiety 09/13/23 08/20/25 History dextromethorphan IR 45 1 tab PO BID 12/24/24 08/20/25 History mg-bupropion ER 105 mg biphasic tablet (Auvelity) glycopyrrolate 2 mg tablet 2 mg PO BID 01/21/25 08/20/25 History nadolol 20 mg tablet 10 mg (1/2 x 20 mg) PO DAILY #30 04/12/25 08/20/25 Rx tabs gabapentin 100 mg capsule 100 mg PO BID 06/01/25 08/20/25 History Held on 08/23/25. Instructions: Resume on 09/06/25. You are doing well without restarting this medication during her hospitalization. This medication can cause constipation, consider discontinuing if not needed. prucalopride 2 mg tablet 2 mg PO DAILY #30 tabs 06/01/25 08/20/25 Rx trazodone 100 mg tablet 100 mg PO HS 06/01/25 08/20/25 History ferrous sulfate 325 mg (65 mg 325 mg PO DAILY 08/02/25 08/20/25 History iron) tablet (FeroSul) empagliflozin 10 mg tablet 10 mg PO DAILY 08/21/25 08/21/25 History (Jardiance) nitrofurantoin 100 mg PO HS 08/21/25 08/21/25 History monohydrate/macrocrystals 100 mg capsule (Macrobid) rivaroxaban 20 mg tablet (Xarelto) 20 mg PO QPMWITHMEAL 08/21/25 08/21/25 History dicyclomine 10 mg capsule 20 mg (2 x 10 mg) PO BID #30 caps 08/23/25 Rx famotidine 20 mg tablet 40 mg (2 x 20 mg) PO BID 30 days 08/23/25 Rx #120 tabs [id number] 2 cap PO AC 30 days #180 caps 08/23/25 Rx (pork)36,000-114,000-180k unit capsule,del rel (Creon) simethicone 80 mg chewable tablet 80 mg PO Q6H PRN Abdominal 08/23/25 Rx (Gas Relief 80 (simethicone)) Discomfort #30 tabs vancomycin 50 mg/mL oral solution 125 mg (2.5 mL) PO QID 9 days #90 08/23/25 Rx (Firvanq) mL New Prescriptions to Start Prescriptions: dicyclomine Bam Oliver famotidine Bam Oliver [id number]-spnayly (pork) [Creon] Bam Oliver simethicone [Gas Relief 80 (simethicone)] Bam Oliver vancomycin [Firvanq] Bam Oliver Allergies Allergy/AdvReac Type Severity Reaction Status Date / Time Penicillins Allergy Intermediate Rash Verified 08/02/25 13:38 Discharge Plan Disposition Patient Disposition: Home, Self-Care Condition: Fair Follow up Plan Follow up with: Mahad Robins II, MD [Staff Physician, Gastroenterology] - 1 week Referral Note: Call to schedule an appointment. Prescriptions/Medication Reconciliation: New famotidine 20 mg Tablet 40 mg PO BID 30 Days Qty: 120 0RF dicyclomine 10 mg Capsule 20 mg PO BID Qty: 30 0RF Creon 36,000-114,000- 180,000 unit Capsule,Delayed Release(Dr/Ec) 2 cap PO AC 30 Days Qty: 180 0RF vancomycin [Firvanq] 50 mg/mL Recon Soln 125 mg PO QID 9 Days Qty: 90 0RF simethicone [Gas Relief 80 (simethicone)] 80 mg Tablet,Chewable 80 mg PO Q6H PRN (Reason: Abdominal Discomfort) Qty: 30 0RF Continued hydroxyzine HCl 50 mg tablet 100 mg PO TIDP PRN (Reason: Anxiety) Patient Comments: TAKE 1 TO 2 TABLETS 3 TIMES EACH DAY NEEDED FOR ANXIETY buspirone 30 mg tablet 30 mg PO BID Patient Comments: TAKE 1 TABLET 2 TIMES EACH DAY lorazepam 1 mg tablet 1 mg PO TIDP PRN (Reason: Anxiety) loratadine [Allergy Relief (loratadine)] 10 mg tablet 10 mg PO DAILY glycopyrrolate 2 mg tablet 2 mg PO BID nadolol 20 mg tablet 10 mg PO DAILY Qty: 30 5RF trazodone 100 mg tablet 100 mg PO HS prucalopride 2 mg tablet 2 mg PO DAILY Qty: 30 12RF ferrous sulfate [FeroSul] 325 mg (65 mg iron) tablet 325 mg PO DAILY Jardiance 10 mg tablet 10 mg PO DAILY nitrofurantoin monohyd/m-cryst [Macrobid] 100 mg capsule 100 mg PO HS Rx Instructions: must administer with a meal/food Xarelto 20 mg tablet 20 mg PO QPMWITHMEAL Rx Instructions: must administer with evening meal Auvelity 45-105 mg tablet, IR and ER, biphasic 1 tab PO BID Held gabapentin 100 mg capsule 100 mg PO BID Hold Instructions: Resume on 09/06/25. You are doing well without restarting this medication during her hospitalization. This medication can cause constipation, consider discontinuing if not needed. Discontinued omeprazole 40 mg capsule,delayed release(DR/EC) 40 mg PO DAILY dexlansoprazole [Dexilant] 60 mg capsule,biphase delayed releas 60 mg PO DAILY 56 Days Qty: 56 0RF sucralfate [Carafate] 1 gram tablet 1 g PO BID Problem Reconciliation Problems Reviewed?: Yes Patient Discharge Instructions Patient Instructions: DI for Abdominal Pain in Adults Print Language: Maltese Providers Primary Care Provider: Arvind Yu Admit Provider: Bam Oliver Attending Provider: Bam Oliver
--- NOTE | 2025-08-25 12:23 | SW/DCPLANNER ---
Phoned patient x2. Left messages with name and a call back number each time. Miquel DIAS Photography Editor
[2025-08-26 13:29] LABS: Interpretation Notes (.); Lactase 31.55 (>/= 14.0); Maltase 258.94 (>/= 110.0); Palatinase 19.05 (>/= 8.5); Reference Notes (.); Sucrase 75 (>/= 25.0)
== END 2025-08-23 19:00 | disposition home or self-care (01) ==
LOC: ER 18:36 → 2ND 22:11
PROVIDERS: Internal Medicine Gastroenterology; Nurse Practitioner Family; Admitting Provider Student in an Organized Health Care Education/Training Program; Emergency Provider Student in an Organized Health Care Education/Training Program; PCP Family Medicine; Visit Provider Student in an Organized Health Care Education/Training Program
PROC: 0DJ08ZZ Inspection of Upper Intestinal Tract, Via Natural or Artificial Opening Endoscopic (ICD-10-PCS; principal; 2025-08-23 13:00)
DX: R10.85 Abdominal pain of multiple sites (principal); K21.9 Gastro-esophageal reflux disease without esophagitis; N20.0 Calculus of kidney; F41.9 Anxiety disorder, unspecified; Z88.0 Allergy status to penicillin; I50.22 Chronic systolic (congestive) heart failure; R14.0 Abdominal distension (gaseous); Z79.899 Other long term (current) drug therapy; Z79.84 Long term (current) use of oral hypoglycemic drugs; Z79.01 Long term (current) use of anticoagulants; J90 Pleural effusion, not elsewhere classified; F17.290 Nicotine dependence, other tobacco product, uncomplicated; A04.72 Enterocolitis due to Clostridium difficile, not specified as recurrent
CPT/HCPCS: 43239; 36415; 74177; 80048; 80053; 81001; 82657; 83605; 83690; 84145; 84484; 84703; 85025; 85651; 86140; 86231; 86258; 86364; 87086; 87491; 87506; 87591; 87661; 93005; 96361; 96374; 96375; 96376; 99285; G0378; J1171; J1308; J1885; J2003; J2270; J2405; J2704; J7030; J7120; Q9967

== ENCOUNTER 2025-09-10 23:41 | Emergency (ER) | payer BC, SELFPAY ==
--- OUTSIDE RECORDS SUMMARY | 2025-01-06 08:00 | XMS_ITS ---
Author Organization [facility], [place] Address [address] [place] [address] Care Team Providers Care Cemetery Warden Name Role Phone PaigeChiqui person Unavailable [phone] Marisela Avery Unavailable [phone] REASON FOR VISIT Annual Social History Sex Assigned At : Social History Observation Description Sex Assigned At Female Encounters Encounter Location Date Provider Diagnosis [facility] [address] [place] [address] 01/06/2025 Marisela Avery Plan Of Treatment Next Appt Details Provider Name:Aramis Felix, 04/26/2026 02:15:00 PM, [address] [facility], [place], [address], Progress Notes * Alysa MANCINI MDOB:02/1986 (39 yo F)Acc No.[id number]:01/06/2025 Progress Note Patient: Angeli venita Alysa Busch Provider: Krys Avery NP :1985 A ge:39 Y S ex:Female Date:01/06/2025 Address:[address] [place], [place] [id number] Subjective: * Chief Complaints: * A nnual * Electronic signature of Jasper Avery NP on 09/10/2025 at 11:50 PM EST Sign off status: Pending Visit Status: R /S (Rescheduled) * Provider: Krys Avery NP Date: 01/06/2025 Generated for Lluvia lewis/Rodolfo/Cortney on: 1 11/11/2024 11:50 PM EST
--- OUTSIDE RECORDS SUMMARY | 2025-01-08 05:15 | XMS_ITS ---
Author Organization [facility] Address [address] [facility] [address] [place] [address] Care Team Providers Care Delphi Developer Name Role Phone Chiqui Gibson Unavailable [phone] Maida Reno Unavailable [phone] REASON FOR VISIT Annual Social History Sex Assigned At : Social History Observation Description Sex Assigned At Female Encounters Encounter Location Date Provider Diagnosis [facility] [address] [place] [address] 01/08/2025 Maida Reno Plan Of Treatment Next Appt Details Provider Name:Aramis Felix, 04/26/2026 02:15:00 PM, [address] [facility], [address], [place], [address], Progress Notes * Alysa MANCINI MDOB:02/1986 (39 yo F)Acc No.[id number]:01/08/2025 Progress Note Patient: Alysa Romero Provider: Linda Reno APRN :1985 A ge:39 Y S ex:Female Date:01/08/2025 Address:[address] [place], [place] [id number] Subjective: * Chief Complaints: * A nnual * Electronic signature of Riya Reno NP on 09/10/2025 at 11:50 PM EST Sign off status: Pending Visit Status: N /S (No-Show) * Provider: Linda Reno APRN Date: 0 01/08/2025 Generated for Lluvia lewis/Rodolfo/Cortney on: 1 11/11/2024 11:50 PM EST
--- OUTSIDE RECORDS SUMMARY | 2025-01-13 05:00 | XMS_ITS ---
Author Organization [facility] Address [address] [facility] [address] [place] [address] Care Team Providers Care Sewer Pipe Offbearer Name Role Phone Chiqui Gibson Unavailable [phone] Allergies Allergen (clinical drug ingredient) Drug/Non Drug [...] vape Encounters Encounter Location Date Provider Diagnosis [facility] [address] [facility] [address] [place] [address] 01/13/2025 Chiqui Gibson Plan Of Treatment Next Appt Details Provider Name:Aramis Felix, 04/26/2026 02:15:00 PM, [address] [facility], [address], [place], [address], Progress Notes * Alysa MANCINI MDOB:02/1986 (39 yo F)Acc No.[id number]:01/13/2025 Patient: Angeli venitaKatherineAlysa Jo-Ann Provider: Brodie Gibson APRN :1985 A ge:39 Y S ex:Female Date:01/13/2025 Address:[address] [place] [address] Subjective: * Chief Complaints: * N explanon Insertion * Medical History: ASCUS HPV+ Abnormal Pap Acid Reflux Anxiety Bowel Problems Depression Female Problems High Blood Pressure Stomach Problems Urinary Tract Infections Yeast Infections H/O STD BV IUFD Tokotsubu CMP Cervical high risk HPV (human papillomavirus) test positive ASCUS of cervix with negative high risk HPV * 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
--- OUTSIDE RECORDS SUMMARY | 2025-01-13 08:15 | XMS_ITS ---
Author Organization [facility] Address [address] [facility] [address] [place] [address] Care Team Providers Care Dispatcher Motor Vehicle Name Role Phone Paige Chiqui Unavailable [phone] REASON FOR VISIT Nexplanon Insertion Social History Sex Assigned At : Social History Observation Description Sex Assigned At Female Encounters Encounter Location Date Provider Diagnosis [facility] [address] [facility] [address] [place] [address] 01/13/2025 Chiqui Gibson Plan Of Treatment Next Appt Details Provider Name:Aramis Felix, 04/26/2026 02:15:00 PM, [address] , [address], [place], [address], Progress Notes * Alysa MANCINI MDOB:02/1986 (39 yo F)Acc No.[id number]:01/13/2025 Progress Note Patient: Alysa Romero Provider: Brodie Gibson APRN :1985 A ge:39 Y S ex:Female Date:01/13/2025 Address:[address] [place], [place] [address] Subjective: * Chief Complaints: * N explanon Insertion * Electronic signature of Wilmar Gibson APRN on 09/10/2025 at 11:50 PM EST Sign off status: Pending Visit Status: R /S (Rescheduled) * Provider: Brodie Gibson APRN Date: 01/13/2025 Generated for Lluvia lewis/Rodolfo/Cortney on: 1 11/11/2024 11:50 PM EST
--- OUTSIDE RECORDS SUMMARY | 2025-03-26 10:45 | XMS_ITS ---
Author Organization [facility] Address [address] [facility] [address] [place] [address] Care Team Providers Care Global Marketing Intern Name Role Phone Chiqui Gibson Unavailable [phone] Shanda Carranza Unavailable [phone] REASON FOR VISIT Annual Medications Medication SIG (Take, Route, Frequency, Duration) Notes Start Date End Date Status BuSpar 30mg BID Active Auvelity 45-105mg 1tab BID Active ACCRUFeR 30 MG Capsule 1 capsule Orally Once daily; Duration: 30 days 09/26/2023 Active Macrobid 100 MG Capsule 1 capsule with food Orally every 12 hrs; Duration: 7 days 09/05/2023 Active Ferrous Sulfate 325 (65 Fe) MG Tablet Delayed Release 1 tablet Orally daily; Duration: 30 days 10/31/2023 Active Macrobid 100 MG Capsule 1 capsule with food Orally every 12 hrs; Duration: 7 days 06/07/2023 Active Nexplanon 68 MG Implant as directed Subcutaneous Active Vitamin D 125mcg daily Active traZODone HCl 50mg tab daily A ctive Spravato (84 MG Dose) nasal fritz mine once weekly Active Omeprazole 40mg daily Active LORazepam 1 tab TID Active Loratadine 10mg Active hydrOXYzine HCl 50mg TID Acti ve Glycopyrrolate PF 2mg QID Ac tive Gabapentin 300mg caps 2capsTID Active Social History Sex Assigned At : Social History Observation Description Sex Assigned At Female Encounters Encounter Location Date Provider Diagnosis [facility] [address] [facility] [address] [place] [address] 03/26/2025 Shanda Carranza Plan Of Treatment Next Appt Details Provider Name:Aramis Felix, 04/26/2026 02:15:00 PM, [address] [facility], [facility] [address], [address], Progress Notes * Alysa MANCINI MDOB:02/1986 (39 yo F)Acc No.[id number]:03/26/2025 Progress Note Patient: Alysa Romero Provider: Irving CARRANZA APRN :1985 A ge:39 Y S ex:Female Date:03/26/2025 Address:[address] [place] [address] Subjective: * Chief Complaints: * A nnual * Medications: T akingACCRUFeR(Ferric Maltol) 30 MG [...] 10mgLORazepam , Notes to Pharmacist: 1 tab TIDMacrobid(Nitrofurantoin Monohyd Macro) 100 MG Capsule 1 capsule with food Orally every 12 hrs Macrobid(Nitrofurantoin Monohyd Macro) 100 MG Capsule 1 capsule with food Orally every 12 hrs Nexplanon(Etonogestrel) 68 MG Implant as directed Subcutaneous Omeprazole , Notes to Pharmacist: 40mg dailySpravato (84 [...] , Notes to Pharmacist: 1 tab TIDTaking Macrobid(Nitrofurantoin Monohyd Macro) 100 MG Capsule 1 capsule with food Orally every 12 hrs Taking Macrobid(Nitrofurantoin Monohyd Macro) 100 MG Capsule 1 capsule with food Orally every 12 hrs Taking Nexplanon(Etonogestrel) 68 MG Implant as directed Subcutaneous Taking Omeprazole , Notes to Pharmacist: 40mg dailyTaking Spravato (84 MG Dose) , Notes to Pharmacist: nasal ketamine once weeklyTaking traZODone HCl , Notes to Pharmacist: 50mg tab dailyTaking Vitamin D , Notes to Pharmacist: 125mcg daily * Electronic signature of Shanda Carranza APRN on 09/10/2025 at 11:49 PM EST Sign off status: Pending Visit Status: N /S (No-Show) * Provider: Irving CARRANZA APRN Date: 0 03/26/2025 Generated for Lluvia lewis/Rodolfo/Cortney on: 1 11/11/2024 11:49 PM EST
--- OUTSIDE RECORDS SUMMARY | 2025-06-09 07:00 | XMS_ITS ---
Author Organization [facility] Address [address] [facility] [address] [place] [address] Care Team Providers Care Director Of Solutions Architecture Name Role Phone Chiqui Gibson Unavailable [phone] Isidro, Aramis Unavailable [phone] Results Component Value Reference Range Notes *US Pelvis Complete Transabd ominal/Vaginal (Non-OB) Reviewed date:06/13/2025 07:18:24 PM Interpretation: Performing Lab: Notes/Report: [facility] Transvaginal Pelvic Study Report Name: ALYSA MANCINI Accession/Encounter No:[id number] Procedure/Order ID: [id number] : 1985 Age: 39 Gender: F Study Date: Jun 09, 2025 Study Time: 11:41 AM Reading Group: Tesha Card MD Referring Group: Aramis Felix CNM Ordering Phys: Aramis Felix CNM Clay Modeler: Louise Coleman RDMS Equipment: Affiniti 30 Study [...] 10:02 PM EDT Electronically Signed on Studycast ALYSA MANCINI 2025-06-09 Page 1 of 1 [facility] - , [facility] REASON FOR VISIT w/i Social History Sex Assigned At : Social History Observation Description Sex Assigned At Female Encounters Encounter Location Date Provider Diagnosis [facility] [address] [facility] [address] [place] [address] 06/09/2025 Aramis Felix Amenorrhea, secondary N91.1 Assessments Encounter Date Diagnosis (ICD Code) Assessment Notes Treatment Notes Treatment Clinical Notes Section Notes 06/09/2025 Amenorrhea, secondary (ICD-10 - N91.1) Plan Of Treatment Next Appt Details Provider Name:Tuliotracey Felix, 04/26/2026 02:15:00 PM, [address], [address], [place], [address], Progress Notes * Alysa MANCINI MDOB:02/1986 (39 yo F)Acc No.[id number]:06/09/2025 Progress Note Patient: Angeli venita Alysa Jo-Ann Provider: Sixto Felix CNM :1985 A ge:39 Y S ex:Female Date:06/09/2025 Address:[address] [place] [address] Subjective: * Chief Complaints: * W /i Assessment: * Assessment: 1. A menorrhea, secondary - N91.1 (Primary) Plan: * Treatment: Billing Information: * Procedure Codes: * Electronic signature of Anette Felix CNM on 09/10/2025 at 11:50 PM EST Sign off status: Pending Visit Status: Puar BACH (Check Out) * Provider: Sixto Felix CNM Date: 0 06/09/2025 Generated for Lluvia lewis/Rodolfo/eTransmitting on: 1 11/11/2024 11:50 PM EST
--- OUTSIDE RECORDS SUMMARY | 2025-07-13 09:30 | XMS_ITS ---
Author Organization [facility] Address [address] [facility] [address] [place] [address] Care Team Providers Care Signal Tower Director Name Role Phone Chiqui Gibson Unavailable [phone] Aramis Felix Unavailable [phone] REASON FOR VISIT medication f/u Social History Sex Assigned At : Social History Observation Description Sex Assigned At Female Encounters Encounter Location Date Provider Diagnosis [facility] [address] [facility] [address] [place] [address] 07/13/2025 Aramis Felix Plan Of Treatment Next Appt Details Provider Name:Aramis Felix, 04/26/2026 02:15:00 PM, [address] [facility], [address], [address], Progress Notes * Alysa MANCINI MDOB:02/1986 (39 yo F)Acc No.[id number]:07/13/2025 Progress Note Patient: Alysa Romero Provider: Sixto Felix CNM :1985 A ge:39 Y S ex:Female Date:07/13/2025 Address:[address] [place], [place] [id number] Subjective: * Chief Complaints: * M edication f/u * Electronic signature of Anette Felix CNM on 09/10/2025 at 11:50 PM EST Sign off status: Pending Visit Status: R /S (Rescheduled) * Provider: Sixto Felix CNM Date: 1 Generated for Lluvia Galloway on: 1 11/11/2024 11:50 PM EST
--- OUTSIDE RECORDS SUMMARY | 2025-07-21 08:15 | XMS_ITS ---
Author Organization [facility] Address [address] [facility] [address] [place] [address] Care Team Providers Care Sap Abap Developer Name Role Phone Chiqui Gibson Unavailable [phone] IsidroAnette rosadoluis a Unavailable [phone] REASON FOR VISIT medication/lab follow up Social History Sex Assigned At : Social History Observation Description Sex Assigned At Female Encounters Encounter Location Date Provider Diagnosis [facility] [address] [facility] [address] [place] [address] 07/21/2025 Aramis Felix Plan Of Treatment Next Appt Details Provider Name:Tuliotracey Felix, 04/26/2026 02:15:00 PM, [address] [facility], [address], [place], [address], Progress Notes * Alysa MANCINI MDOB:02/1986 (39 yo F)Acc No.[id number]:07/21/2025 Progress Note Patient: Alysa Romero Provider: Sixto Felix CNM :1985 A ge:39 Y S ex:Female Date:07/21/2025 Address:[address] [place], [place] [phone] Subjective: * Chief Complaints: * M edication/lab follow up * Electronic signature of Anette Felix CNM on 09/10/2025 at 11:51 PM EST Sign off status: Pending Visit Status: C ANC-PNF (Cancelled Patient No Fault) * Provider: Sixto Felix CNM Date: 1 09/20/2024 Generated for Lluvia Galloway on: 11/11/2024 11:51 PM EST
--- NOTE | 2025-09-10 23:46 | CT_ITS ---
PROCEDURE INFORMATION: Exam: CT Abdomen And Pelvis With Contrast Exam date and time: 09/11/2025 12:48 AM Age: 39 years old Clinical indication: Abdominal pain; Additional info: Recent c. Diff, worsening pain and symptoms TECHNIQUE: Imaging protocol: Computed tomography of the abdomen and pelvis with contrast. Radiation optimization: All CT scans at this facility use at least one of these dose optimization techniques: automated exposure control; mA and/or kV adjustment per patient size (includes targeted exams where dose is matched to clinical indication); or iterative reconstruction. Contrast material: ISOVUE; Contrast volume: 75 ml; Contrast route: IV; COMPARISON: CT ABDOMEN PELVIS W CON 08/20/2025 7:04 PM FINDINGS: Tubes, catheters and devices: Partially imaged cardiac pacemaker leads. Pleural spaces: Redemonstration of there is amount of pleural effusion/pleural thickening. Liver: Mild fatty changes of the liver. Gallbladder and biliary ducts: Normal. No calcified stones. No ductal dilation. Pancreas: Normal. No ductal dilation. Spleen: Redemonstration of granulomatous calcifications in the spleen. Adrenal glands: Normal. No mass. Kidneys and ureters: Redemonstration of a 4 mm right mid to lower pole nonobstructive renal stone. No evidence of hydronephrosis. Stomach and bowel: Redemonstration of diffuse thickening of the small bowel horn , fluid within the distal small bowel loops, with mild diffuse distension of the large bowel loops with gaseous and fecal matter. There is diffuse mild wall thickening of the rectosigmoid. Appendix: No evidence of appendicitis. Intraperitoneal space: Unremarkable. No free air. No significant fluid collection. Vasculature: Unremarkable. No abdominal aortic aneurysm. Lymph nodes: Unremarkable. No enlarged lymph nodes. Urinary bladder: There is significant thickening of the urinary bladder horn although the urinary bladder is partially empty. Urine analysis is recommended for further evaluation. Reproductive: Unremarkable as visualized. Bones/joints: Redemonstration of mild degenerative changes of the lumbosacral spine. Redemonstration of chronic deformity of the coccyx. Soft tissues: Suspected small fat containing paraumbilical hernia. IMPRESSION: 1. Redemonstration of 4 mm mid to lower pole nonobstructing right renal stone. 2. Redemonstration of mild wall thickening and scattered fluid-filled loops of small bowel as well as loads of colonic gaseous and fecal method. Wall thickening of the rectosigmoid. Findings are concerning for the sequelae of colitis. Clinical correlation is recommended. 3. Redemonstration of trace amount of left pleural effusion or pleural thickening.
--- OUTSIDE RECORDS SUMMARY | 2025-09-10 23:49 | XMS_ITS | Continuity of Care Document ---
Author Organization [facility] [place] [facility] Address [address] [place] [address] [place] [address] Care Team Providers Care Banana Handler Name Role Phone ADITI SALOMON Primary Care [...] Continue monitoring for any recurrence of symptoms. [email or web address] Not available 08/15/2025 09:19:40 Plan of Treatment Reminders Order Date Submit Date Provider Last Modified By Organization Details Last Modified Time Details Appointments RECHECK 2025 03:15P Jo-Ann CANNON MD Not available Not available Not available RECHECK 2025 01:00P Jo-Ann CANNON MD Not available Not available Not available Lab urinalysi s panel, auto 2024 025 [email or web address] [facility] [place] [facility], [address] [place] [address] , [address], [place], [address], 08/15/2025 09:19:49 Referral None recorded. Procedures None recorded. Surgeries None recorded. Imaging None recorded. Medication Orders None recorded. Patient TargetsNo targets recorded. Patient Instructions Encounter Date Encounter Id Patient Instructions Last Modified By Organization Details Last Modified Time 07/29/2025 [id number] - Continue takin g nitrofurantoin as prescribed to prevent UTIs. - Monitor fluid intake, especially before bedtime, to help manage nocturia. - Follow up with welding specialist for diabetes screening results. - Schedule a follow-up appointment in three months or sooner if symptoms worsen. [email or web address] Not available 07/29/2025 13:35:38 Reason for Referral None Reported. Results Created Date Observation Date Name Description Value Unit Range Abnormal Flag Note LastModifiedBy Organization Detail LastModifiedTime 07/29/2007/29/2025 urina lysis panel , auto Unknown Analyte Clean Catch Not Available [facility] With [address] [place], [place], [address], 07/29/2025 13:16:34 07/29/2007/29/2025 urina lysis panel , auto Unknown Analyte Yellow Not Available [facility] With [address] [place], [place], [address], 07/29/2025 13:16:34 07/29/20 25 07/29/2025 urina lysis panel , auto Unknown Analyte Clear Not Available [facility] With [address] [place], [place], [address], 07/29/2025 13:16:34 07/29/20 25 07/29/2025 urina lysis panel , auto Unknown Analyte 1.005 Not Available [facility] With [address], [place], [address], 07/29/2025 13:16:34 07/29/20 25 07/29/2025 urina lysis panel , auto Unknown Analyte 1.003 - 1.030 Not Available [address] [place], [place], [address], 07/29/2025 13:16:34 07/29/20 25 07/29/2025 urina lysis panel , auto Unknown Analyte 7.0 Not Available [facility] [place] With [address] [place], [place], [address], 07/29/2025 13:16:34 07/29/20 25 07/29/2025 urina lysis panel , auto Unknown Analyte 5.0 - 8.0 Not Available [facility] With [address], [place], [address], 07/29/2025 13:16:34 07/29/2007/29/2025 urina lysis panel , auto Unknown Analyte Negati ve Not Available [facility] With [address] [place], [place], [address], 07/29/2025 13:16:34 07/29/20 25 07/29/2025 urina lysis panel , auto Unknown Analyte Negati ve Not Available [facility] With [address] [place], [place], [address], 07/29/2025 13:16:34 07/29/20 25 07/29/2025 urina lysis panel , auto Unknown Analyte Negati ve Not Available [facility] With [address], [place], [address], 07/29/2025 13:16:34 07/29/20 25 07/29/2025 urina lysis panel , auto Unknown Analyte Negati ve Not Available [facility] With [address], [place], [address], 07/29/2025 13:16:34 07/29/20 25 07/29/2025 urina lysis panel , auto Unknown Analyte Negati ve Not Available [facility] [place] With [address], [place], [address], 07/29/2025 13:16:34 07/29/20 25 07/29/2025 urina lysis panel , auto Unknown Analyte Negati ve Not Available [facility] With [facility] [address], [place], [address], 07/29/2025 13:16:34 07/29/20 25 07/29/2025 urina lysis panel , auto Unknown Analyte >1000 mg/dL Not Available [facility] With [address], [place], [address], 07/29/2025 13:16:34 07/29/20 25 07/29/2025 urina lysis panel , auto Unknown Analyte Normal Not Available [facility] With [address], [place], [address], 07/29/2025 13:16:34 07/29/20 25 07/29/2025 urina lysis panel , auto Unknown Analyte Negati ve Not Available [facility] With [address], [place], [address], 07/29/2025 13:16:34 07/29/20 25 07/29/2025 urina lysis panel , auto Unknown Analyte Negati ve Not Available [facility] With [facility] [address], [place], [address], 07/29/2025 13:16:34 07/29/20 25 07/29/2025 urina lysis panel , auto Unknown Analyte Normal Not Available [facility] With [address], [place], [address], 07/29/2025 13:16:34 07/29/20 25 07/29/2025 urina lysis panel , auto Unknown Analyte Normal Not Available [facility] With [facility] [address], [place], [address], 07/29/2025 13:16:34 07/29/20 25 07/29/2025 urina lysis panel , auto Unknown Analyte Negati ve Not Available [facility] With [address] [place], [place], [address], 07/29/2025 13:16:34 07/29/20 25 07/29/2025 urina lysis panel , auto Unknown Analyte Negati ve Not Available [facility] With [address] [place], [place], [address], 07/29/2025 13:16:34 07/29/2007/29/2025 urina lysis panel , auto Unknown Analyte Negati ve Not Available [facility] With [address] [place], [place], [address], 07/29/2025 13:16:34 07/29/2007/29/2025 urina lysis panel , auto Unknown Analyte Negati ve Not Available [facility] With [address] [place], [place], [address], 07/29/2025 13:16:34 Result Notes None recorded. Problems No Known Problems Procedures Surgical History Date Name Laterality Status Provider Name and Address Organization Details Recorded Time Post Void Residual; Ultrasound completed Oksana Vern [facility] 11/23/2024 16:43:00 Imaging Results None recorded. Procedure Notes None recorded. Medical Equipment None Reported. Allergies Allergen ID Allergen Name Allergen Category Reaction Reaction Severity Criticality Documentation Date Start Date Code Code System Note Provider Name and Address Organization Details Recorded Time 036563 Product containin g penicilli n (product) medicatio n Not available Not available Not available 02/18/2018 52668 8001 SNOMED Petra Duran cisneros [facility] 8 15:24:44 714917 penicilli n V Not available other Not available low 07/29/20252022 7984 RxNorm rash Not Available amilcar - External Data Service - [facility] 05:55:22 841800 dapaglifl ozin propanedi ol medicatio n diarrhea Not available low 07/29/20252024 66707 66 RxNorm Not Available [facility] External Data Service - [facility] 5 05:56:33 669888 metoprolo l Not available diarrhea Not available low 07/29/20252024 6918 RxNorm Not Available [facility] External Data Service - [facility] 05:56:33 Medications Name Sig Start Date [...] Updated DateTime 07/29/2025 160.02 cm 20.2 kg/m2 64627.53 g Ebony West [facility] 07/29/2025 13:16:07 Social History Question Answer Notes LastModified by Organizat ion Details LastModified Time Tobacco Smoking Status Former Smoker Blade T[facility] 10/29/2024 17:00:54 Marital Status [email or web address] Informatio n not available 02/18/2018 What Was The Date Of Your Most Recent Tobacco Screening? 04/22/2025 [email or web address] Information not available 04/22/2025 Has Tobacco Cessation Counseling Been Provided? Yes [email or web address] Information not available 02/18/2018 On What Date Was Tobacco Cessation Counseling Provided? 02/26/2018 [email or web address] Information not available 02/26/2018 Sex: Unknown Functional Status Question Answer Note LastModified by Organizat ion Details LastModified Time What is your level of alcohol consumption? Occasional [email or web address] Information not available 02/18/2018 Mental Status None recorded. Family History Relationship Description Onset Age of this Age Resolved Age Notes LastModified by Organization Details LastModified Time Mother Family history of malignant neoplasm [email or web address] Not available 02/18 15:26:02 Maternal Grandmother Family history of malignant neoplasm [email or web address] Not available 02/18 15:26:10 Unspecified Relation Diabetes [...] ICD10 Code Diagnosis IMO Codes Diagnosis Note [id number] ANGELI CANNON MD [facility] [address] [address] 07/29/2025 13:02:00 08/16/2025 04:18:11 Increased frequency of urination [id number] R35.0 07507 - Consider medication for overactive bladder if symptoms persist. - Cystoscopy may be performed to evaluate bladder health if necessary. Nocturia [id number] R35.1 60724 - Monitor fluid intake, especially before bedtime, to manage symptoms. Health Concerns Section Related Observation LastModified by Organization Detai ls LastModified Time None Recorded Concern Status LastModified by Organization Details LastModified Time None Recorded Payers Encounter Date Sequence Insurance Name Policy Number Policy Alcantara Covered Member ID Alc[employer] Member ID Guarantor Name 07/29/2025 1 [employer] [id number] Alysa Mancini [id number] Alysa Mancini Notes Date Note Type [...] awaiting diabetes screening results ordered by her welding specialist. Documentation on this patient encounter was supported using voice-enabled Al technology. The patient consented to recording for the purpose of documenting the encounter. Provider reviewed content of the generated note prior to signature. - Urine analysis: No signs of infection ANGELI CANNON MD [address] [place] [address], [address], [facility] 08/15/2025 09:20:16 OBGyn Episode No OBEpisode recorded.
--- OUTSIDE RECORDS SUMMARY | 2025-09-10 23:49 | XMS_ITS | Data Portability ---
Author Organization [facility] [place] GILBERTO Carcamo BASSETT CLOSED Address [address] [facility] [facility] [address] [place] [address] Care Team Providers Care Physical Director Name Role Phone ADITI SALOMON Primary Care [...] followup and strict limitations for sling placement. [email or web address] Not available 11/17/2024 14:21:03 11/23/2024 11/23/2024 Continue [...] to the incomplete emptying. Follow-up with [facility]. [email or web address] Not available 12/06/2024 14:19:39 12/17/2024 12/17/2024 She is not having symptoms of stress incontinence at this time. She has occasional urgency. Hesitancy has improved. [email or web address] Not available 12/27/2024 08:17:15 04/22/2025 04/22/2025 - [...] Continue monitoring for any recurrence of symptoms. [email or web address] Not available 08/15/2025 09:19:40 Plan of Treatment Reminders Order Date Submit Date Provider Last Modified By Organization Details Last Modified Time Details Appointments RECHECK 2025 03:15P Jo-Ann CANNON MD Not available Not available Not available RECHECK 2025 01:00P Jo-Ann CANNON MD Not available Not available Not available Lab urinalysi s panel, auto 2024 [email or web address] [place] [address] With [facility], [address] [place] [address] , [place], [address], 08/15/2025 09:19:49 urinalysi s panel, auto 2024 [email or web address] [place] [address] With [facility], [address] [place] [address] , [place], [address], 12/18/2024 09:27:10 culture, urine 2024 025 [facility], [address] [place] [address], [address], 12/19/2024 10:41:47 urinalysi s panel, auto 2024 [email or web address] [place] [address] [facility], [address] [place] [address], [address], [place], [address], 11/25/2024 13:17:40 Referral None recorded. Procedures None recorded. Surgeries None recorded. Imaging None recorded. Medication Orders hydrocodo ne 7.5 mg-acetam inophen 325 mg tablet 2024 03 025 [facility], [address] [place], [address], 11/17/2024 14:25:05 Patient TargetsNo targets recorded. Patient Instructions Encounter Date Encounter Id Patient Instructions Last Modified By Organization Details Last Modified Time 04/22/2025 [id number] learning about healthy weight [email or web address] Not available 04/29/2025 10:48:24 - Continue monitoring urinary symptoms and report any changes. - Follow up annually unless symptoms worsen. [email or web address] Not available 04/22/2025 16:39:23 07/29/2025 [id number] - Continue takin g nitrofurantoin as prescribed to prevent UTIs. - Monitor fluid intake, especially before bedtime, to help manage nocturia. - Follow up with legal referee for diabetes screening results. - Schedule a follow-up appointment in three months or sooner if symptoms worsen. [email or web address] Not available 07/29/2025 13:35:38 Reason for Referral None Reported. Results Created Date Observation Date Name Description Value Unit Range Abnormal Flag Note LastModifiedBy Organization Detail LastModifiedTime 10/29/1910/29/2024 urina lysis panel , auto Unknown Analyte Clean Catch Not Available [address] Shey [address]ester, [place], [address], 10/29/2024 17:03:38 10/29/19 25 10/29/2024 urina lysis panel , auto Unknown Analyte Straw Not Available [address] Shey Lester, [place], [address], 10/29/2024 17:03:38 10/29/19 25 10/29/2024 urina lysis panel , auto Unknown Analyte Slight ly Hazy Not Available [address] Shey Lester, [place], [address], 10/29/2024 17:03:38 10/29/19 25 10/29/2024 urina lysis panel , auto Unknown Analyte 1.025 Not Available [facility] With [address], [place], [address], 10/29/2024 17:03:38 10/29/19 25 10/29/2024 urina lysis panel , auto Unknown Analyte 1.003- 1.035 Not Available [facility] With [address], [place], [address], 10/29/2024 17:03:38 10/29/19 25 10/29/2024 urina lysis panel , auto Unknown Analyte 5.0 Not Available [facility] With [address], [place], [address], 10/29/2024 17:03:38 10/29/19 25 10/29/2024 urina lysis panel , auto Unknown Analyte 5.0-8. 0 Not Available [facility] With [address], [place], [address], 10/29/2024 17:03:38 10/29/19 25 10/29/2024 urina lysis panel , auto Unknown Analyte Negati ve Not Available [facility] [address], [place], [address], 10/29/2024 17:03:38 10/29/19 25 10/29/2024 urina lysis panel , auto Unknown Analyte Negati ve Not Available [facility] [address], [place], [address], 10/29/2024 17:03:38 10/29/19 25 10/29/2024 urina lysis panel , auto Unknown Analyte Negati ve Not Available [facility] [address], [place], [address], 10/29/2024 17:03:38 10/29/19 25 10/29/2024 urina lysis panel , auto Unknown Analyte Negati ve Not Available [facility] With [address] Shey Lester, [place], [address], 10/29/2024 17:03:38 10/29/19 25 10/29/2024 urina lysis panel , auto Unknown Analyte 30 mg/dl (+) Not Available [facility] [address] Shey Lester, [place], [address], 10/29/2024 17:03:38 10/29/19 25 10/29/2024 urina lysis panel , auto Unknown Analyte Negati ve Not Available [facility] [address], [place], [address], 10/29/2024 17:03:38 10/29/19 25 10/29/2024 urina lysis panel , auto Unknown Analyte Normal Not Available [facility] With [address], [place], [address], 10/29/2024 17:03:38 10/29/19 25 10/29/2024 urina lysis panel , auto Unknown Analyte Normal Not Available [facility] With [address], [place], [address], 10/29/2024 17:03:38 10/29/19 25 10/29/2024 urina lysis panel , auto Unknown Analyte Negati ve Not Available [facility] [address], [place], [address], 10/29/2024 17:03:38 10/29/19 25 10/29/2024 urina lysis panel , auto Unknown Analyte Negati ve Not Available [facility] [address], [place], [address], 10/29/2024 17:03:38 10/29/19 25 10/29/2024 urina lysis panel , auto Unknown Analyte 1 mg/dl Not Available [facility] With [address] Kat F, [place], [address], 10/29/2024 17:03:38 10/29/19 25 10/29/2024 urina lysis panel , auto Unknown Analyte Normal 1 mg/dl Not Available [facility] [address] Shey [address]ester, [place], [address], 10/29/2024 17:03:38 10/29/19 25 10/29/2024 urina lysis panel , auto Unknown Analyte 1 mg/dl (+) Not Available [facility] [address] Shey [address]ester, [place], [address], 10/29/2024 17:03:38 10/29/19 25 10/29/2024 urina lysis panel , auto Unknown Analyte Negati ve Not Available [facility] With [address] Kat F, [place], [address], 10/29/2024 17:03:38 10/29/19 25 10/29/2024 urina lysis panel , auto Unknown Analyte Negati ve Not Available [facility] [address] Kat F, [place], [address], 10/29/2024 17:03:38 10/29/19 25 10/29/2024 urina lysis panel , auto Unknown Analyte Negati ve Not Available [facility] With [address] Kat F, [place], [address], 10/29/2024 17:03:38 11/18/19 25 11/17/2024 urina lysis panel , auto Unknown Analyte Clean Catch Not Available [facility] [address] [place] [address], [place], [address], 11/17/2024 12:39:07 11/18/19 25 11/17/2024 urina lysis panel , auto Unknown Analyte Yellow Not Available [facility] [address] [place] [address], [address], 11/17/2024 12:39:07 11/18/19 25 11/17/2024 urina lysis panel , auto Unknown Analyte Clear Not Available [facility] [address] [place] [address], [place], [address], 11/17/2024 12:39:07 11/18/19 25 11/17/2024 urina lysis panel , auto Unknown Analyte 1.[address] [facility] [address] [place] [address], [address], 11/17/2024 12:39:07 11/18/19 25 11/17/2024 urina lysis panel , auto Unknown Analyte 1.003 - 1.030 Not Available [facility] [address] [place] [address], [place], [address], 11/17/2024 12:39:07 11/18/19 25 11/17/2024 urina lysis panel , auto Unknown Analyte 5.[address] [facility] [address] [place] [address], [address], 11/17/2024 12:39:07 11/18/19 25 11/17/2024 urina lysis panel , auto Unknown Analyte 5.0 - 8.0 Not Available [facility] [address] [place] [address], [address], 11/17/2024 12:39:07 11/18/19 25 11/17/2024 urina lysis panel , auto Unknown Analyte 25 Yuli/uL Not Available [facility] [address] [address], [place], [address], 11/17/2024 12:39:07 11/18/19 25 11/17/2024 urina lysis panel , auto Unknown Analyte Negati ve Not Available [facility] [address] [place] [address], [address], 11/17/2024 12:39:07 11/18/19 25 11/17/2024 urina lysis panel , auto Unknown Analyte Negati ve Not Available [facility] [address] [place] [address], [address], 11/17/2024 12:39:07 11/18/19 25 11/17/2024 urina lysis panel , auto Unknown Analyte Negati ve Not Available [facility] [address] [place] [address], [address], 11/17/2024 12:39:07 11/18/19 25 11/17/2024 urina lysis panel , auto Unknown Analyte 30 mg/dL Not Available [facility] [address] [place] [address], [address], 11/17/2024 12:39:07 11/18/19 25 11/17/2024 urina lysis panel , auto Unknown Analyte Negati ve Not Available [facility] [address] [place] [address], [address], 11/17/2024 12:39:07 11/18/19 25 11/17/2024 urina lysis panel , auto Unknown Analyte >1000 mg/dL Not Available [facility] [address] [place] [address], [address], 11/17/2024 12:39:07 11/18/19 25 11/17/2024 urina lysis panel , auto Unknown Analyte Normal Not Available [facility] [address] [place] [address], [address], 11/17/2024 12:39:07 11/18/19 25 11/17/2024 urina lysis panel , auto Unknown Analyte Negati ve Not Available [facility] [address] [place] [address], [address], 11/17/2024 12:39:07 11/18/19 25 11/17/2024 urina lysis panel , auto Unknown Analyte Negati ve Not Available [facility] [address] [place] [address], [address], 11/17/2024 12:39:07 11/18/19 25 11/17/2024 urina lysis panel , auto Unknown Analyte 1 mg/dL Not Available [facility] [address] [place] [address], [address], 11/17/2024 12:39:07 11/18/19 25 11/17/2024 urina lysis panel , auto Unknown Analyte Normal Not Available [facility] [address] [place] [address], [address], 11/17/2024 12:39:07 11/18/19 25 11/17/2024 urina lysis panel , auto Unknown Analyte 1 mg/dL Not Available [facility] [address] [place] [address], [address], 11/17/2024 12:39:07 11/18/19 25 11/17/2024 urina lysis panel , auto Unknown Analyte Negati ve Not Available [facility] [address] [place] [address], [address], 11/17/2024 12:39:07 11/18/19 25 11/17/2024 urina lysis panel , auto Unknown Analyte Trace Not Available [facility] [address] [place] [address] [address], [place], [address], 11/17/2024 12:39:07 11/18/19 25 11/17/2024 urina lysis panel , auto Unknown Analyte Negati ve Not Available [facility] [address] [facility] [address], [place], [address], 11/17/2024 12:39:07 11/24/19 25 11/23/2024 urina lysis panel , auto Unknown Analyte Clean Catch Not Available [facility] With [address], [place], [address], 11/23/2024 16:32:23 11/24/19 25 11/23/2024 urina lysis panel , auto Unknown Analyte Yellow Not Available [facility] With [address], [address], 11/23/2024 16:32:23 11/24/19 25 11/23/2024 urina lysis panel , auto Unknown Analyte Slight ly Cloudy Not Available [facility] [address], [place], [address], 11/23/2024 16:32:23 11/24/19 25 11/23/2024 urina lysis panel , auto Unknown Analyte 1.015 Not Available [facility] [address], [address], 11/23/2024 16:32:23 11/24/19 25 11/23/2024 urina lysis panel , auto Unknown Analyte 1.003 - 1.030 Not Available [facility] [address], [place], [address], 11/23/2024 16:32:23 11/24/19 25 11/23/2024 urina lysis panel , auto Unknown Analyte 5.0 Not Available [facility] [address] [place] [address] Rd [address], [place], [address], 11/23/2024 16:32:23 11/24/19 25 11/23/2024 urina lysis panel , auto Unknown Analyte 5.0 - 8.0 Not Available [facility] [address], [place], [address], 11/23/2024 16:32:23 11/24/19 25 11/23/2024 urina lysis panel , auto Unknown Analyte Negati ve Not Available [facility] [address], [place], [address], 11/23/2024 16:32:23 11/24/19 25 11/23/2024 urina lysis panel , auto Unknown Analyte Negati ve Not Available [facility] [address], [place], [address], 11/23/2024 16:32:23 11/24/19 25 11/23/2024 urina lysis panel , auto Unknown Analyte Negati ve Not Available [facility] [address] [place] [address] Rd [address], [place], [address], 11/23/2024 16:32:23 11/24/19 25 11/23/2024 urina lysis panel , auto Unknown Analyte Negati ve Not Available [facility] With [address], [place], [address], 11/23/2024 16:32:23 11/24/19 25 11/23/2024 urina lysis panel , auto Unknown Analyte Negati ve Not Available [facility] With [address], [place], [address], 11/23/2024 16:32:23 11/24/19 25 11/23/2024 urina lysis panel , auto Unknown Analyte Negati ve Not Available [facility] [address], [place], [address], 11/23/2024 16:32:23 11/24/19 25 11/23/2024 urina lysis panel , auto Unknown Analyte >1000 mg/dL Not Available [facility] [address], [place], [address], 11/23/2024 16:32:23 11/24/19 25 11/23/2024 urina lysis panel , auto Unknown Analyte Normal Not Available [facility] [address], [place], [address], 11/23/2024 16:32:23 11/24/19 25 11/23/2024 urina lysis panel , auto Unknown Analyte Negati ve Not Available [facility] [address], [place], [address], 11/23/2024 16:32:23 11/24/19 25 11/23/2024 urina lysis panel , auto Unknown Analyte Negati ve Not Available [facility] [address], [place], [address], 11/23/2024 16:32:23 11/24/19 25 11/23/2024 urina lysis panel , auto Unknown Analyte Normal Not Available [facility] [address] [place] [address] Rd [address], [place], [address], 11/23/2024 16:32:23 11/24/19 25 11/23/2024 urina lysis panel , auto Unknown Analyte Normal Not Available [facility] [address] [place] [address] Rd [address], [place], [address], 11/23/2024 16:32:23 11/24/19 25 11/23/2024 urina lysis panel , auto Unknown Analyte Negati ve Not Available [facility] [address], [place], [address], 11/23/2024 16:32:23 11/24/19 25 11/23/2024 urina lysis panel , auto Unknown Analyte Negati ve Not Available [facility] [address] [place] [address] Rd [address], [place], [address], 11/23/2024 16:32:23 11/24/19 25 11/23/2024 urina lysis panel , auto Unknown Analyte 50 Rocael/uL Not Available [facility] [address] [place] [address] Rd [address], [place], [address], 11/23/2024 16:32:23 11/24/19 25 11/23/2024 urina lysis panel , auto Unknown Analyte Negati ve Not Available [facility] [address] [place] [address] Rd [address], [place], [address], 11/23/2024 16:32:23 12/18/19 25 2024 URINE CULTU RE urine culture No growth day 3. Not Available [facility] [address] [facility], [place], [address], 2024 12:52:23 12/18/19 25 12/17/2024 urina lysis panel , auto Unknown Analyte Clean Catch Not Available [facility] With [address], [place], [address], 12/17/2024 16:54:04 12/18/19 25 12/17/2024 urina lysis panel , auto Unknown Analyte Yellow Not Available [facility] With [address], [place], [address], 12/17/2024 16:54:04 12/18/19 25 12/17/2024 urina lysis panel , auto Unknown Analyte Clear Not Available [facility] With [address], [place], [address], 12/17/2024 16:54:04 12/18/19 25 12/17/2024 urina lysis panel , auto Unknown Analyte 1.025 Not Available [facility] With [address] F, [place], [address], 12/17/2024 16:54:04 12/18/19 25 12/17/2024 urina lysis panel , auto Unknown Analyte 1.003 - 1.030 Not Available [facility] [address], [place], [address], 12/17/2024 16:54:04 12/18/19 25 12/17/2024 urina lysis panel , auto Unknown Analyte 5.0 Not Available [facility] With [address] F, [place], [address], 12/17/2024 16:54:04 12/18/19 25 12/17/2024 urina lysis panel , auto Unknown Analyte 5.0 - 8.0 Not Available [facility] With [address] F, [place], [address], 12/17/2024 16:54:04 12/18/19 25 12/17/2024 urina lysis panel , auto Unknown Analyte 75 Yuli/uL Not Available [facility] With [address], [place], [address], 12/17/2024 16:54:04 12/18/19 25 12/17/2024 urina lysis panel , auto Unknown Analyte Negati ve Not Available [facility] With [address] F, [place], [address], 12/17/2024 16:54:04 12/18/19 25 12/17/2024 urina lysis panel , auto Unknown Analyte Negati ve Not Available [facility] With [address], [place], [address], 12/17/2024 16:54:04 12/18/19 25 12/17/2024 urina lysis panel , auto Unknown Analyte Negati ve Not Available [facility] [address], [place], [address], 12/17/2024 16:54:04 12/18/19 25 12/17/2024 urina lysis panel , auto Unknown Analyte Negati ve Not Available [facility] [place] [facility] [address], [place], [address], 12/17/2024 16:54:04 12/18/19 25 12/17/2024 urina lysis panel , auto Unknown Analyte Negati ve Not Available [facility] [place] With [address], [place], [address], 12/17/2024 16:54:04 12/18/19 25 12/17/2024 urina lysis panel , auto Unknown Analyte >1000 mg/dL Not Available [facility] With [address], [place], [address], 12/17/2024 16:54:04 12/18/19 25 12/17/2024 urina lysis panel , auto Unknown Analyte Normal Not Available [facility] With [address], [place], [address], 12/17/2024 16:54:04 12/18/19 25 12/17/2024 urina lysis panel , auto Unknown Analyte Negati ve Not Available [facility] With [address], [place], [address], 12/17/2024 16:54:04 12/18/19 25 12/17/2024 urina lysis panel , auto Unknown Analyte Negati ve Not Available [facility] [address], [place], [address], 12/17/2024 16:54:04 12/18/19 25 12/17/2024 urina lysis panel , auto Unknown Analyte Normal Not Available [facility] [address], [place], [address], 12/17/2024 16:54:04 12/18/19 25 12/17/2024 urina lysis panel , auto Unknown Analyte Normal Not Available [facility] [address], [place], [address], 12/17/2024 16:54:04 12/18/19 25 12/17/2024 urina lysis panel , auto Unknown Analyte 1 mg/dL Not Available [facility] [address], [place], [address], 12/17/2024 16:54:04 12/18/19 25 12/17/2024 urina lysis panel , auto Unknown Analyte Negati ve Not Available [facility] [address], [place], [address], 12/17/2024 16:54:04 12/18/19 25 12/17/2024 urina lysis panel , auto Unknown Analyte Negati ve Not Available [facility] [address], [place], [address], 12/17/2024 16:54:04 12/18/19 25 12/17/2024 urina lysis panel , auto Unknown Analyte Negati ve Not Available [facility] [address], [place], [address], 12/17/2024 16:54:04 07/29/20 25 07/29/2025 urina lysis panel , auto Unknown Analyte Clean Catch Not Available [facility] [address], [place], [address], 07/29/2025 13:16:34 07/29/20 25 07/29/2025 urina lysis panel , auto Unknown Analyte Yellow Not Available [facility] [address], [place], [address], 07/29/2025 13:16:34 07/29/20 25 07/29/2025 urina lysis panel , auto Unknown Analyte Clear Not Available [facility] [address], [place], [address], 07/29/2025 13:16:34 07/29/20 25 07/29/2025 urina lysis panel , auto Unknown Analyte 1.005 Not Available [facility] [address], [place], [address], 07/29/2025 13:16:34 07/29/20 25 07/29/2025 urina lysis panel , auto Unknown Analyte 1.003 - 1.030 Not Available [facility] With [address], [place], [address], 07/29/2025 13:16:34 07/29/20 25 07/29/2025 urina lysis panel , auto Unknown Analyte 7.0 Not Available [facility] With [address], [place], [address], 07/29/2025 13:16:34 07/29/20 25 07/29/2025 urina lysis panel , auto Unknown Analyte 5.0 - 8.0 Not Available [facility] [address] Kat F, [place], [address], 07/29/2025 13:16:34 07/29/20 25 07/29/2025 urina lysis panel , auto Unknown Analyte Negati ve Not Available [facility] [address] Kat F, [place], [address], 07/29/2025 13:16:34 07/29/20 25 07/29/2025 urina lysis panel , auto Unknown Analyte Negati ve Not Available [facility] [address] Kat F, [place], [address], 07/29/2025 13:16:34 07/29/20 25 07/29/2025 urina lysis panel , auto Unknown Analyte Negati ve Not Available [facility] [address] Kat F, [place], [address], 07/29/2025 13:16:34 07/29/20 25 07/29/2025 urina lysis panel , auto Unknown Analyte Negati ve Not Available [facility] [address] Shey Lester, [place], [address], 07/29/2025 13:16:34 07/29/20 25 07/29/2025 urina lysis panel , auto Unknown Analyte Negati ve Not Available [facility] [address] Shey Lester, [place], [address], 07/29/2025 13:16:34 07/29/20 25 07/29/2025 urina lysis panel , auto Unknown Analyte Negati ve Not Available [facility] [address], [place], [address], 07/29/2025 13:16:34 07/29/20 25 07/29/2025 urina lysis panel , auto Unknown Analyte >1000 mg/dL Not Available [facility] [address], [place], [address], 07/29/2025 13:16:34 07/29/20 25 07/29/2025 urina lysis panel , auto Unknown Analyte Normal Not Available [facility] [address], [place], [address], 07/29/2025 13:16:34 07/29/20 25 07/29/2025 urina lysis panel , auto Unknown Analyte Negati ve Not Available [facility] [address], [place], [address], 07/29/2025 13:16:34 07/29/20 25 07/29/2025 urina lysis panel , auto Unknown Analyte Negati ve Not Available [facility] [address], [place], [address], 07/29/2025 13:16:34 07/29/20 25 07/29/2025 urina lysis panel , auto Unknown Analyte Normal Not Available [facility] [address] Shey Lester, [place], [address], 07/29/2025 13:16:34 07/29/20 25 07/29/2025 urina lysis panel , auto Unknown Analyte Normal Not Available [facility] [address] Shey Lester, [place], [address], 07/29/2025 13:16:34 07/29/20 25 07/29/2025 urina lysis panel , auto Unknown Analyte Negati ve Not Available [facility] [address] Shey Lester, [place], [address], 07/29/2025 13:16:34 07/29/20 25 07/29/2025 urina lysis panel , auto Unknown Analyte Negati ve Not Available [facility] [address] Shey Lester, [place], [address], 07/29/2025 13:16:34 07/29/2007/29/2025 urina lysis panel , auto Unknown Analyte Negati ve Not Available [facility] [address] Shey Lester, [place], [address], 07/29/2025 13:16:34 07/29/2007/29/2025 urina lysis panel , auto Unknown Analyte Negati ve Not Available [facility] [address] Shey Lester, [place], [address], 07/29/2025 13:16:34 Result Notes None recorded. Problems No Known Problems Procedures Surgical History Date Name Laterality Status Provider Name and Address Organization Details Recorded Time Post Void Residual; Ultrasound completed Oksana Porras [facility] 11/23/2024 16:43:00 Imaging Results None recorded. Procedure Notes None recorded. Medical Equipment None Reported. Allergies Allergen ID Allergen Name Allergen Category Reaction Reaction Severity Criticality Documentation Date Start Date Code Code System Note Provider Name and Address Organization Details Recorded Time 253723 Product containin g penicilli n (product) medicatio n Not available Not available Not available 02/18/2018 37245 8001 SNOMED Petra Lopezles [facility] 8 15:24:44 198517 penicilli n V Not available other Not available low 07/29/20252022 7984 RxNorm rash Not Available [employer] - prod 05:55:22 812596 dapaglifl ozin propanedi ol medicatio n diarrhea Not available low 07/29/20252024 67814 66 RxNorm Not Available [employer] - prod 05:56:33 468535 metoprolo l Not available diarrhea Not available low 07/29/20252024 6918 RxNorm Not Available [employer] - prod 5 05:56:33 Medications [...] Updated DateTime 11/23/2024 160.02 cm 24.6 kg/m2 03611.34 g Oksana Porras [facility] 11/23/2024 16:32:09 Date Recorded Body height Body mass index (BMI) Body weight Provider Name and Address Organization Details Last Updated DateTime 12/17/2024 160.02 cm 24.6 kg/m2 38287.34 g Blade Cortezt [facility] 12/17/2024 16:53:18 Date Recorded Body height Body mass index (BMI) Body weight Provider Name and Address Organization Details Last Updated DateTime 04/22/2025 160.02 cm 20.2 kg/m2 94996.53 g Blade Cortezt [facility] 04/22/2025 16:43:14 Date Recorded Body height Body mass index (BMI) Body weight Provider Name and Address Organization Details Last Updated DateTime 07/29/2025 160.02 cm 20.2 kg/m2 75176.53 g Ebony Brett [facility] 07/29/2025 13:16:07 Social History Question Answer Notes LastModified by Organizat ion Details LastModified Time Tobacco Smoking Status Former Smoker Blade Cortezt [facility] 10/29/2024 17:00:54 Marital Status [email or web address] Informatio n not available 02/18/2018 What Was The Date Of Your Most Recent Tobacco Screening? 04/22/2025 [email or web address] Information not available 04/22/2025 Has Tobacco Cessation Counseling Been Provided? Yes [email or web address] Information not available 02/18/2018 On What Date Was Tobacco Cessation Counseling Provided? 02/26/2018 [email or web address] Information not available 02/26/2018 Sex: Unknown Functional Status Question Answer Note LastModified by Organizat ion Details LastModified Time What is your level of alcohol consumption? Occasional Information not available 02/18/2018 Mental Status None recorded. Family History Relationship Description Onset Age of this Age Resolved Age Notes LastModified by Organization Details LastModified Time Mother Family history of malignant neoplasm [email or web address] Not available 02/18 15:26:02 Maternal Grandmother Family history of malignant neoplasm [email or web address] Not available 02/18 15:26:10 Unspecified Relation Diabetes [...] ICD10 Code Diagnosis IMO Codes Diagnosis Note [id number] LEO JOSE MD SEDRICK [facility]IATE S [address] [facility] [address] [place] [address] 02/18/2018 14:18:27 02/18/2018 15:58:52 Normal 74502735 Z34.90 Kidney stone 55553028 N2 0.0 Ureteric stone 57024802 N20.1 [id number] LEO JOSE MD CUA [facility] UROLOGIC ASSOCIATE S [address] [place] [address] 02/19/2018 13:56:01 02/19/2018 15:02:10 Ureteric stone 08827146 N20.1 [id number] LEO JOSE MD SURGERY SCHEDULE [address] [place] [address] 02/24/2018 07:20:26 02/24/2018 07:24:23 Ureteric stone 98192301 N20.1 [id number] LEO JOSE MD CUA [facility] UROLOGIC ASSOCIATE S [address] [facility] [address] [place] [address] 02/26/2018 13:58:19 02/26/2018 14:38:30 Kidney stone 24156154 N20.0 [id number] ANGELI CANNON MD [facility] [address] [place] [address] 10/29/2024 15:58:18 10/29/2024 19:05:50 Female urinary stress incontinence 62712989 N39.3 Recurrent urinary tract infection 200143389 N39.0 [id number] ANGELI CANNON MD SURGERY SCHEDULE [address] [place] [address] 11/17/2024 11:55:00 11/17/2024 11:56:20 Postoperative pain 851837672 G89.18 [id number] ANGELI CANNON MD [facility] S [address] [place] [address] 11/23/2024 16:25:47 11/23/2024 16:42:39 Female urinary stress incontinence 61701802 N39.3 Recurrent urinary tract infection 301755351 N39.0 [id number] ANGELI CANNON MD [facility] [address],[place] [address] 12/17/2024 16:37:18 12/18/2024 14:38:12 Urinary tract infectious disease 93151616 N39.0 Female uri nary stress incontinence 20474497 N39.3 [id number] ANGELI CANNON MD [facility] [place] [address],[place] [address] 04/22/2025 16:00:22 04/30/2025 04:11:46 Female urinary stress incontinence 95142299 N39.3 1793754 - Monitor TOT sling effectiven ess. - Consider gentle dilation if urination difficulty worsens. Delay when starting to pass urine 0809624 R39.11 366940 - Monitor urination difficulty and consider interventi on if symptoms persist. [id number] ANGELI CANNON MD [facility] [address],[place] [address] 07/29/2025 13:02:00 08/16/2025 04:18:11 Increased frequency of urination 054136716 R35.0 67604 - Consider medication for overactive bladder if symptoms persist. - Cystoscopy may be performed to evaluate bladder health if necessary. Nocturia 196178085 R35.1 24373 - Monitor fluid intake, especially before bedtime, [...] 11/17/2024 2 [place] [id number] 3 Alysa Mancini [id number] 19 Alysa Mancini 11/17/2024 GENERIC INSURANCE - MOVED-HOLD Alysa Mancini 08/16/2025 1 [place] [id number] 3 Alysa Mancini [id number] 19 Alysa Mancini Notes Date Note Type [...] gross hematuria or dysuria. ANGELI CANNON MD [address] [place] [address], [address], [facility] 12/06/2024 14:19:54 12/17/2024 text/html 38-year-old female in [...] gross hematuria or dysuria. ANGELI CANNON MD [address] [place] [address], [address], [facility] 12/27/2024 08:17:31 04/22/2025 text/html The patient is [...] note prior to signature. ANGELI CANNON MD [address] [place] [address], [address], [facility] 04/29/2025 10:48:37 07/29/2025 text/html The patient is [...] awaiting diabetes screening results ordered by her legal referee. Documentation on this patient encounter was supported using voice-enabled Al technology. The patient consented to recording for the purpose of documenting the encounter. Provider reviewed content of the generated note prior to signature. - Urine analysis: No signs of infection ANGELI CANNON MD [address] [place], [address], [facility] 08/15/2025 09:20:16 OBGyn Episode No OBEpisode recorded.
--- OUTSIDE RECORDS SUMMARY | 2025-09-10 23:49 | XMS_ITS | Clinical Summary ---
Author Organization [facility] Address [address] [place] [address] Care Team Providers Care Printer Slotter Helper Name Role Phone Sandro Sebastian MD Primary Care Provider [phone] Allergies Active Allergy Reactions Criticality Noted Date [...] meals Email sugars weekly / message via [employer] She will begin testing sugars fasting and 2 hours after meals and will fax blood sugars weekly to [email or web address] We will plan to see her back [...] her previous IUFD. She followed with a bias cutter at that time. She reports an echo done in November of this year that was normal. Most literature regarding cardiomyopathy during or recently has not included stress-induced cardiomyopathy. Literature related to cardiomyopathy she has increased maternal risk if there is not recovery of ejection fraction. Given her normal echo patient is at decreased risk. Encourage patient to follow-up with bias cutter and would likely need an echo early [...] drink = 0.6 oz pur e alcohol) [facility] Utilities Answer Date Recorded In the past 12 months has [email or web address], gas, oil, or water [employer] threatened to shut off services in your [...] and heating? Not hard at all 11/20/2023 [facility]ational Stress Questionnaire Answer [...] things needed for daily living? No 11/20/2023 Jordan Depression Scale Answer Date Recorded Jordan Depression Scale Total 20 12/04/2023 The thought [...] GED or equivalent No 11/20/2023 Preferred Language Kazakh 11/20/2023 PHQ-2 Answer Date Recorded Retired PHQ-9: [...] this topic Medical Devices Implanted Type Area Greeting Card Writer Device Identifier Shelf Expiration Date Model / [...] sult [facility]
[address] [place] [address], from Last 3 Months or Most Recently Relevant to Health Maintenance [place] [address] [address] [place] [address] PPO Member Subscriber Plan / Payer (Ef fective 2024-Present) Name:Alysa Mancini Relation to Subscriber:Self Name:Alysa Mancini Payer ID:[id number] (NAIC) Type:Not on file Address: [facility] [address] [place] [id number] Advance Directives * CPR (Attempt to Resuscitate) [...] pulse or is breathing): Full Care Teams Printer Slotter Helper Relationship Specialty Start Date End Date Sandro Sebastian MD [address] [place] [address] PCP - General Family Medicine 06/23/19
--- OUTSIDE RECORDS SUMMARY | 2025-09-10 23:50 | XMS_ITS | Patient Health Record ---
Author Organization [facility] Address [address] [facility] [place] [address] Care Team Providers Care Application Integration Specialist Name Role Phone Chiqui Gibson Unavailable [phone] ChristianaTesha blake Unavailable [phone] Aramis Felix Unavailable [phone] Shanda Carranza Unavailable [phone] Marisela Avery Unavailable [phone] Maida Reno Unavailable [phone] Allergies Allergen (clinical drug ingredient) Drug/Non Drug Allergy documented on EMR Reaction Allergy Type Onset Date Status PENICILLIN V POTASSI UM (PENICILLIN V POTASSIUM TAB rash Drug Allergy 06/06/2011 Active Results Component Value Reference Range Notes *US Pelvis Complete Transabd ominal/Vaginal (Non-OB) Reviewed date:06/13/2025 07:18:24 PM Interpretation: Performing Lab: Notes/Report: [facility] Transvaginal Pelvic Study Report Name: ALYSA M JENA Accession/Encounter No:[id number] Procedure/Order ID: [id number] : 1985 Age: 39 Gender: F Study Date: Jun 09, 2025 Study Time: 11:41 AM Reading Group: Tesha Card MD Referring Group: Aramis Felix CNM Ordering Phys: Aramis Felix CNM Line Supervisor: Louise Coleman RDMS Equipment: [employer] 30 Study [...] 1 of 1 Imaging Center - , [facility] [address] Pap w/reflex HPV Reviewed date:04/30/2025 09:33:30 AM Interpretation:Normal Performing Lab:[facility] - [place] CLIA ID [id number], [address] [facility] [address], [address], [place] [address], Director - Vikash Sanchez MD Notes/Report: Any Nucleic Acid Amplification testing is performed on the [employer]. Diagnosis: Negative for intraepithelial lesion or malignancy. AP results LMP: . Screening note: This specimen has been analyzed by the ThinPrep Imaging System, an interactive computer system which assists the lab in screening of ThinPrep Pap Test slides. Following imaging, the slide was reviewed by a Sewing Machines Salesperson and/or Pathologist. Results of Last Pap: Not [...] Date of Last Pap: Not provided FINAL ACTUARIAL SCIENCE PROFESSOR CYTOLOGY REPORT Sewing Machines Salesperson Recommendation: Follow-up based on current clinical guidelines and/or clinical consideration. Specimen Type: ThinPrep CPT Codes: 50278 Specimen Adequacy: DIAGNOSIS: Urine Dip - Analyzer Read Reviewed date:06/09/2025 07:19:02 PM Interpretation:2000 glucose Performing Lab: Notes/Report: Urine Reviewed date:06/09/2025 07:19:02 PM Interpretation:Negative Performing Lab: Notes/Report: PROLACTIN Reviewed date:04/22/2025 07:44:53 AM Interpretation:Normal Performing Lab: Notes/Report: Results may be falsely decreased if patient taking Biotin. PROLACTIN 21.70 4.79-23.30 ng/mL Lab specime ns received at a [facility].?See result details for the performing location information. FOLLICLE STIMULATING HORMONE Reviewed date:04/22/2025 07:44:53 AM Interpretation:Normal Performing Lab: Notes/Report: FSH Reference Ranges: Adult Males: 1.5-12.4 mIU/mL Adult Females: Folicular Phase ?3.5-12.5 mIU/ml Ovulation Phase ?4.7-21.5 mIU/ml Lutal Phase ? ? ?1.7-7.7 mIU/ml Postmenopausal ? 25.8-134.8 mIU/ml FOLLICLE STIMULATING HORMONE 12.70 Lab specimens receiv ed at a [facility].?See result details for the performing location [...] 52.0 Lab specimen s received at a [facility].?See result details for the performing location information. TSH RFX ON ABNORMAL TO FREE T4 Reviewed date:04/22/2025 07:44:53 AM Interpretation:Normal Performing Lab: Notes/Report: THYROID STIMULATING HORMONE (TSH) UIU/ML 1.400 0.270-4.20 uIU/mL Lab specimens recei popeye at a [facility].?See result details for the performing location information. Reason For Referral No Information Medications Medication SIG (Take, Route, Frequency, Duration) Notes Start Date End Date Status Jardiance Active Loratadine 10mg Active MiraLax Active Glycopyrrolate PF 2mg QID Ac tive hydrOXYzine HCl 50mg TID Acti ve BuSpar 30mg BID Active Gabapentin 100mg BID Active Vitamin D 125mcg daily Not-Mark ing/MO N Auvelity 45-105mg 1tab BID Active Omeprazole [...] Status W/U Status Risk Notes Problem Amenorrhea (37612611) Amenorrhea, secondary (N91.1) Active confirmed Problem Cervical high risk HPV (human papillomavirus) test positive (198778413) Cervical high risk HPV (human papillomavirus) test positive (R87.810) Active confirmed Problem Secondary oligomenorrhea (17575563) Secondary oligomenorrhea (N91.4) Active confirmed Problem Pain in female genitalia on intercourse (68084695) Dyspareunia, female (N94.10) Active confirmed Vital Signs Heart Rate 76 /min 06/09/2025 Respiratory Rate 18 /min 06/09/2025 Oximetry 100 % 06/09/2025 Blood pressure diastolic 64 mm Hg 06/09/2025 Height 64 in 06/09/2025 Blood pressure systolic 118 mm Hg 06/09/2025 Weight 125 lbs 06/09/2025 BMI 21.45 kg/m2 06/09/2025 Encounters Encounter Location Date Provider Diagnosis [facility] [address] [facility] [address] [place] [address] 05/31/2025 Iniko Isidro [facility] [address] [facility] [address] [place] [address] 06/09/2025 Iniko Isidro Dysuria R30.0 ; Amenorrhea, secondary N91.1 ; Recent weight loss R63.4 ; Encounter for initial prescription of contraceptive pills Z30.011 ; Other fatigue R53.83 ; Hair loss L65.9 ; Dyspareunia, female N94.10 and Urine test negative Z32.02 [facility] [address] [facility] [address] [place] [address] 04/21/2025 Tesha Card Solar Sales Manager exam without abnormal findings Z01.419 and Secondary oligomenorrhea N91.4 [facility] [address] [facility] [address] [place] [address] 06/09/2025 Iniko Isidro Amenorrhea, secondar y N91.1 Assessments Encounter Date Diagnosis (ICD Code) Assessment Notes Treatment Notes Treatment Clinical Notes Section Notes 04/21/2025 Solar Sales Manager exam without abnormal findings (ICD-10 - Z01.419) [...] Provider Name:Aramis Felix, 04/26/2026 02:15:00 PM, [address] [facility] [address], [place], [address], Insurance Providers Payer Name Payer Address Payer Phone Subscriber Number Group Number Insured Name Patient Relationship to Insured Coverage Start Date Coverage End Date Jaclyn [facility] [address] [place] [address] [phone] [id number] Alysa Mancini Self - patient is the insured Medical (General) History Medical History History ICD Code HPV / ASCUS Acid Reflux Anxiety Bowel Problems Depression Hypertension Stomach Problems Urinary Tract Infections IUFD Takotsubo cardiomyopathy Gestational diabetes Alcoholism Obesity with massive weight loss Surgical History Surgery Date(Month/Year) LEEP 2016 Multiple Lithotripsy T&A [facility] Teeth Extraction Lt Breast Lumpectomy umbilical hernia repair oral surgery teeth revision pacemaker and defibrillator placed Midurethral sling Hospitalization History Reason Date(Month/Year) L&D - x3 T&A
--- OUTSIDE RECORDS SUMMARY | 2025-09-10 23:50 | XMS_ITS | Referral Summary ---
Author Organization [email or web address] ([place], [place], [place], [place], [place]) Address [address] [place] [address] Care Team Providers Care Land Surveying Party Chief Name Role Phone Sandro Sebastian Primary Care [...] Date Sal rded Speak language other than Brazilian at home Not on file 10/04/2023 Want [...] Advance Directives For more information, please contact: [phone] * Full Code (Latest Code Status on File) Date Activated Date Inactivated Comments 12/12/2022 6:00 AM 12/12/2022 9:56 AM -Attempt Res uscitation if person has no pulse and is not breathing. -If no pulse or not breathing attempt CPR/CODE. -Call Rapid Response if patient is in distress. Care Teams Land Surveying Party Chief Relationship Specialty Start Date End Date Sandro Sebastian [address] [place] [address] PCP - General 11/01/22
--- OUTSIDE RECORDS SUMMARY | 2025-09-10 23:50 | XMS_ITS | Encounter Summary ---
Author Organization [facility] Address [address] [place] [address] Care Team Providers Care Hand Plate Stacker Name Role Phone Gabriele Sebastian MD Primary Care Provider [phone] Encounter Details Date Type Department Care Team (Late st Contact Info) Description 04/06/2021 Lab Requisition [facility] [address] [place] [address] Braxton Ballesteros MD [address] [facility] [address] [place], [place] [id number] Encounter for general adult medical examination without [...] <50 <50 ng/mL 04/08/2021 4:56 PM EDT [facility] Urine Urine specimen obtained by clean catch procedure / Unknown 04/06/2021 2:07 AM EDT 04/06/2021 10:10 AM EDT [facility] - 04/08/2021 4:56 PM EDT Drug analysis is confirmed by LC-MS/MS (LC Tandem Mass Spectrometry) on Urine specimens. This test was developed and its performance characteristics determined by [facility]. It has not been cleared or approved by the FDA. The laboratory is regulated under CLIA as qualified to perform high-complexity testing. This test is used for clinical purposes. Testing is performed at the [facility], Special Chemistry Laboratory. us Braxton Ballesteros MD LAB URINE ORDERABLES Final Res ult [facility] [address] [place] [address] documented in this encounter Visit Diagnoses Diagnosis Encounter for general adult medical examination without abnormal findings documented in this encounter Care Teams Hand Plate Stacker Relationship Specialty [place] [address] PCP - General 01/27/21 documented as of this encounter
--- OUTSIDE RECORDS SUMMARY | 2025-09-10 23:50 | XMS_ITS | Encounter Summary ---
Author Organization [facility] Address [address] [place] [address] Care Team Providers Care Professor Of Voice Name Role Phone Gabriele Sebastian MD Primary Care Provider [phone] Encounter Details Date Type Department Care Team (Late st Contact Info) Description 11/27/2023 Orders Only External Location [address] [place] [address] Provider, External Social History Tobacco Use Types [...] documented as of this encounter Care Teams Professor Of Voice Relationship Specialty Start Date End Date Gabriele Sebastian MD [id number] PCP - General 01/27/21 documented as of this encounter
--- OUTSIDE RECORDS SUMMARY | 2025-09-10 23:50 | XMS_ITS | Clinical Summary ---
Author Organization [facility] Address [address] [facility] [address] [place] [address] Care Team Providers Care Remediation Technician Name Role Phone Unavailable Primary Care Provider [...]
--- OUTSIDE RECORDS SUMMARY | 2025-09-10 23:50 | XMS_ITS | Encounter Summary ---
Author Organization [facility] Address [address] [place] [address] Care Team Providers Care Vacuum Bottle Assembler Name Role Phone Gabriele Sebastian MD Primary Care Provider [phone] Encounter Details Date Type Department Care Team (Late st Contact Info) Description 04/06/2021 Lab Requisition [facility] [address] [place] [address] Braxton Ballesteros MD [address] [facility] [address] [place], [place] [id number] Encounter for general adult medical examination without [...] findings documented in this encounter Care Teams Vacuum Bottle Assembler Relationship Specialty [place] [id number] PCP - General 01/27/21 documented as of this encounter
--- OUTSIDE RECORDS SUMMARY | 2025-09-10 23:50 | XMS_ITS | Encounter Summary ---
Author Organization [facility] Address [address] [place] [address] Care Team Providers Care Tank Truck Driver Name Role Phone Gabriele Sebastian MD Primary Care Provider [phone] Encounter Details Date Type Department Care Team (Late st Contact Info) Description 05/26/2024 Orders Only External Location [address] [place] [address] Brendon Cunningham MD [address] [id number] Social History Tobacco Use Types Packs/Day Years [...] documented as of this encounter Care Teams Tank Truck Driver Relationship Specialty [place] [id number] PCP - General 01/27/21 documented as of this encounter
--- OUTSIDE RECORDS SUMMARY | 2025-09-10 23:50 | XMS_ITS | Clinical Summary ---
Author Organization [employer] ([place], [place], [place], [place], [place]) Address [address] [place] [address] Care Team Providers Care Operator Name Role Phone Sandro Sebastian Primary [...] Date Sal rded Speak language other than Danish at home Not on file 10/04/2023 Want [...] Advance Directives For more information, please contact: [phone] * Full Code (Latest Code Status on File) Date Activated Date Inactivated Comments 12/12/2022 6:00 AM 12/12/2022 9:56 AM -Attempt Res uscitation if person has no pulse and is not breathing. -If no pulse or not breathing attempt CPR/CODE. -Call Rapid Response if patient is in distress. Care Teams Operator Relationship Specialty Start Date End Date Sandro Sebastian [address] [place] [address] PCP - General 11/01/22
--- OUTSIDE RECORDS SUMMARY | 2025-09-10 23:50 | XMS_ITS | Encounter Summary ---
Author Organization [facility] Address [address] [place] [address] Care Team Providers Care Truck Driver Name Role Phone Gabriele Sebastian MD Primary Care Provider [phone] Encounter Details Date Type Department Care Team (Late st Contact Info) Description 03/30/2021 Lab Requisition [facility] [address] [place] [address] Brian Galvez MD [address] [place] [phone] Encounter for general adult medical examination [...] <50 <50 ng/mL 03/31/2021 10:31 AM EDT [facility] Urine Urine specimen obtained by clean catch procedure / Unknown 03/29/2021 8:27 PM EDT 03/30/2021 1:07 AM EDT Narrative HEALTHCARE LAB - 03/31/2021 10:31 AM EDT Drug analysis is confirmed by LC-MS/MS (LC Tandem Mass Spectrometry) on Urine specimens. This test was developed and its performance characteristics determined by [facility]. It has not been cleared or approved by the FDA. The laboratory is regulated under CLIA as qualified to perform high-complexity testing. This test is used for clinical purposes. Testing is performed at the [facility], Special Chemistry Laboratory. us Brian Galvez MD LAB URINE ORDERABLES Final R esult [facility] [address] [place] [id number] documented in this encounter Visit Diagnoses Diagnosis Encounter for general adult medical examination without abnormal findings documented in this encounter Care Teams Truck Driver Relationship Specialty [place] [id number] PCP - General 01/27/21 documented as of this encounter
--- OUTSIDE RECORDS SUMMARY | 2025-09-10 23:50 | XMS_ITS | Clinical Summary ---
Author Organization [facility] Address [address] [place] [address] Care Team Providers Care Tobacco Roller Name Role Phone Gabriele Sebastian MD Primary Care Provider [phone] Allergies Active Allergy Reactions Criticality Noted Date [...] tablet 6 12/09/19 25 Active HYDROcodone-acetam inophen (Walters) 7.5-325 MG tablet Take 1 tablet by [...] by mouth 2 times a day. 06/02/20 Active gabapentin (Neurontin) 100 MG capsule Take 1 capsule by mouth 2 times a day. 06/03/20 Active traZODone (Desyrel) 100 MG tablet Take 1 tablet by mouth nightly. 05/13/20 Active Psyllium (Metamucil 4 in 1 Fiber) 43 % powder Metamucil A ctive Prucalopride Succinate (Motegrity) 1 MG tablet Prucalopride Succinate Active Drospirenone (Slynd) 4 MG tablet Take 1 tablet by mouth daily. 06/09/20 25 025 Active Problems Problem Noted Date Diagnosed Date [...] Department Care Team Description 08/20/2025 Orders Only [facility] [place] [address] [facility], [address] [place] [address] Nicole Ferrell from Last 3 Months Immunizations Immunization Administration Dates Next Due Influenza, Unspecified 07/02/2018,07/12/2016 Moderna COVID-19 Vaccine (Transit Specialist) 12+ years 09/2021,08/16/2021 Family History Medical History [...] 03/30/2025 5:30 PM EDT Plan of Treatment Health Maintenance [...] - PCV) 12/20/2006 [facility]-Pap Smear 05/29/2009 05/29/2006 [facility]-Cervical Cancer Screening 12/20/2017 [facility]-HPV/Cotest 12/20/2017 05/29/2006 [facility]-USUIM-18 Vaccine (3 - Moderna risk series) 10/14/2021 09/16/2021, 08/16/2021 [facility]-Influenza Vaccine (#1) 05/17/202507/02, 07/12/2016 [facility]-Depression Screening 03/30/2026 025, 03/30/2025 [facility]-Zoster Vaccines (1 of 2) 12/20/2037 [facility]-Hepatitis C Screening Completed 2022, 12/30/2018 [facility]-HIV Screening Completed 03/30/2025 HPV Vaccines (No Doses Required) Completed [facility]-HIB Vaccines Aged Out No longer e [...] Procedure Name Priority Date/Time Associated Diagnosis Comments HIV 1/2 ANTIBODY/ANTIGEN SCREEN WITH REFLEX TO HIV I/II DIFFERENTIATION STAT 03/30/2025 9:05 PM EDT CYTO DATA CONVERSION Routine 05/29/2006 12:00 AM EDT from Last 3 Months or Most Recently Relevant to Health Maintenance Results * HIV 1 & 2 Antibody/Antigen Screen (03/30/2025 9:05 PM EDT) HIV 1 & 2 Antibody/Antigen Screen Non Reactive Non Reactive 03/30/2025 9:05 PM EDT [facility] Comment:Screening for HIV 1 & 2 antibodies, and P24 antigen is NONREACTIVE. No confirmatory testing is required. Blood Venous blood specimen / Unknown 03/30/2025 6:27 PM EDT us Osmel Medina MD LAB BLOOD ORDERABLES Final Re sult [facility] [address] [place] [address] * Cytology (05/29/2006 12:00 AM EDT) 05/29/2006 05/30/2006 11: 55 AM EDT Narrative [facility] - 05/31/2006 1:59 PM EDT [facility] MR #: [facility] [place], [place] [address] 1985 (Age: 20) FW Collect Date: 05/29/2006 00:00 Receipt Date: 05/30/2006 11:55 Page 1 DEPARTMENT OF PATHOLOGY AND LABORATORY MEDICINE CYTOPATHOLOGY REPORT Email: [email or web address] ATTENDING MD/Practitioner: Oliver Hernandez MD Service: FORMING DEPARTMENT SUPERVISOR Location: S Reported: 05/31/2006 13:59 Collected: 05/29/2006 [...] results is suggested (please call Microbiology at [phone] for results). CLINICAL INFORMATION: Menstrual History: Cyclic Date of Last Menstrual Period: 05/17/06 Contraceptive History: control pills Other Clinical Conditions: Clinical information indicates patient has high risk factor(s). SPECIMEN DESCRIPTION: A: THIN PREP (CERVICAL/VAGINAL) THIN PREP PROCESS CELLULAR ENHANCEMENT ICD: V76.2 CERVIX, SPECIAL SCREENING FOR MALIGNANT NEOPLASM V15.89 OTHER PERSONAL HISTORY PRESENT HAZARDS TO HEALTH F: A; [id number] RUST SNOMED CODES: A; [id number] In cases where a pathologist has signed out the report, the service has been rendered in part by a resident. The signing pathologist has performed and is responsible for the reported pathologic evaluation. Historical Provider LAB PATHOLOGY ORDERABLES Fin al Result [facility] from Last 3 Months or Most Recently Relevant to Health Maintenance Insurance [facility] Care Teams Tobacco Roller Relationship Specialty [place] [id number] PCP - General 01/27/21
--- OUTSIDE RECORDS SUMMARY | 2025-09-10 23:50 | XMS_ITS | Encounter Summary ---
Author Organization [facility] Address [address] [place] [address] Care Team Providers Care Casting Inspector Name Role Phone Gabriele Sebastian MD Primary Care Provider [phone] Encounter Details Date Type Department Care Team ([facility] st Contact Info) Description 08/20/2025 Orders Only [facility] [place] [address] [facility], [address] [place] [address] Nicole Ferrell [phone] Social History Tobacco Use Types Packs/Day Years Used Date Smoking Tobacco: Former Cigarettes Smokeless Tobacco: Never Alcohol Use Standard Drinks/Week Comments Never 0 (1 standard drink = 0.6 oz pure alcohol) Alcoholic Drinks/day: Minimum alcohol consumption PHQ-2 Answer Date Recorded Patient Health Questionnaire-2 Score 6 03/30/2025 PHQ-9 Answer Date Recorded Patient Health Questionnaire-9 Score 03/30/2025 PHQ-2A Answer Date Recorded Patient Health [...] Assessment Noted Time PHQ-9 Depression Total Score: 025 5:44 PM EDT A fall risk assessment has been complete d for the patient 11/03/2024 12:57 PM EST A Body Mass Index follow-up plan has been documented for the patient 03/31/2025 9:57 AM EDT documented as of this encounter Care Teams Casting Inspector Relationship Specialty Start Date End Date Gabriele Sebastian MD [id number] PCP - General 01/27/21 documented as of this encounter
--- OUTSIDE RECORDS SUMMARY | 2025-09-10 23:50 | XMS_ITS | Encounter Summary ---
Author Organization [facility] Address [address] [place] [address] Care Team Providers Care Vocational Nurse Lvn Name Role Phone Gabriele Sebastian MD Primary Care Provider [phone] Encounter Details Date Type Department Care Team (Late st Contact Info) Description 11/22/2023 Lab Requisition [facility] H Lab [address] [place] [address] Aramis Felix APRN, [facility] [id number] Encounter for general adult medical examination without [...] <20 <20 ng/mL 11/22 7:07 PM EST [facility] [place] Midazolam <20 <20 ng/mL 2023 7:07 PM EST [facility] [place] Triazolam <20 <20 ng/mL 2023 7:07 PM EST [facility] Alprazolam <10 <10 ng/mL 11/23/2023 7:07 PM EST [facility] Aminoclonazepam <20 <20 ng/mL 7:07 PM EST [facility] Clonazepam <10 <10 ng/mL 11/23/2023 7:07 PM EST [facility] Diazepam <10 <10 ng/mL 11/23/2023 7:07 PM EST [facility] Lorazepam <20 <20 ng/mL 11/23/2023 7:07 PM EST [facility] Lorazepam Glucuronide >1,000(H) <50 ng/mL 11/23/2023 7:07 PM EST [facility] Midazolam 11/23/2023 7:07 PM EST [facility] Nordiazepam <20 <20 ng/mL 11/23/2023 7:07 PM EST [facility] Oxazepam <20 <20 ng/mL 11/23/2023 7:07 PM EST [facility] Oxazepam Glucuronide <50 <50 ng/mL 11/23/2023 7:07 PM EST [facility] Temazepam <20 <20 ng/mL 11/23/2023 7:07 PM EST [facility] Temazepam Glucuronide <50 <50 ng/mL 11/23/2023 7:07 PM [facility] Triazolam 11/23/2023 7:07 PM EST [facility] Urine Urine specimen obtained by clean catch procedure / Unknown 11/21/2023 2:30 PM EST 11/22/2023 9:32 AM EST [facility]ALTHCARE LAB - 11/23/2023 7:07 PM EST Drug analysis is confirmed by LC-MS/MS (LC Tandem Mass Spectrometry) on Urine specimens. This test was developed and its performance characteristics determined by [facility]. It has not been cleared or approved by the FDA. The laboratory is regulated under CLIA as qualified to perform high-complexity testing. This test is used for clinical purposes. Testing is performed at the [facility], Special Chemistry Laboratory. us Aramis Felix APRN, CNM LAB URINE ORDERABLES Stefanie johnson Result Performing Organization Address City/State/[facility] Co de Phone Number [facility] [address] [place] [address] documented in this encounter Visit Diagnoses Diagnosis Encounter for general adult medical examination without abnormal findings documented in this encounter Additional Health Concerns Assessment Noted Time PHQ-9 Depression Total Score: 24 023 12:42 PM EST documented as of this encounter Care Teams Vocational Nurse Lvn Relationship Specialty [place] [id number] PCP - General 01/27/21 documented as of this encounter
--- OUTSIDE RECORDS SUMMARY | 2025-09-10 23:51 | XMS_ITS | Encounter Summary ---
Author Organization [email or web address] ([place], [place], [place], [place], [place]) Address [address] [place] [address] Care Team Providers Care Java Oracle Developer Name Role Phone Sandro Sebastian Primary Care Provider Unavailabl e Encounter Details Date Type Department Care Team (Late st Contact Info) Description 03/29/2021 Transcribed Document [facility] Family Medicine [address] [place] [address] ProviderMahi MD [address] [place] [address] Social History Tobacco Use Types Packs/Day Years [...] 10:10 PM CDT Patient Education Materials Follows: Electronically signed by Kayli Mccurdy Conversion Brim Welt Sewing Machine Operator Cerner at 01/04/2023 4:50 PM CDT documented in this encounter Plan of Treatment Not on file documented as of this encounter Visit Diagnoses Not on filedocumented in this encounter Care Teams Java Oracle Developer Relationship Specialty Start Date End Date Sandro Sebastian [address] [place] [address] PCP - General 11/01/22 documented as of this encounter
--- OUTSIDE RECORDS SUMMARY | 2025-09-10 23:51 | XMS_ITS | Encounter Summary ---
Author Organization [employer] ([place], [place], [place], [place], [place]) Address [address] [place] [address] Care Team Providers Care Laborer Demolition Name Role Phone Sandro Sebastian Primary Care Provider Unavailabl e Encounter Details Date Type Department Care Team (Late st Contact Info) Description 03/29/2021 Transcribed Document [facility] [address] [place] [address] ProviderMahi MD [address] [place], [place] [id number] Social History Tobacco Use Types Packs/Day Years [...] Beard MD - 03/29/2021 10:10 [place] [address] BELGICA MANCINI :1985 Visit Time:03/29/2021 Your Visit [...] movement. Where: [address] [address] [phone] Business (1) Medications What How Much When [...] these instructions at home: Medicines ??? Take sizz-wah-ruumjld and prescription medicines only as told by [...] provider. Document Revised: 12/24/2019 Document Reviewed: 10/08/2017 [employer] Patient Education ?? 2020 [employer] Labor and Information The normal length of a is 39???41 weeks. labor is when labor starts before 37 completed weeks of . What are the risk factors for labor? labor is more likely to occur in women who: ??? Have certain infections during such as a bladder infection, sexually transmitted infection, or infection inside the uterus (chorioamnionitis). ??? Have a pgmypxy-iugh-csubhd cervix. ??? Have gone into labor before. [...] provider. Document Revised: 12/25/2019 Document Reviewed: 01/23/2017 [employer] Patient Education ?? 2020 [employer]. Emergency Awareness and Preventative Care STROKE is [...] Assistance with quitting is available by contacting 2-217-VEZU-NOW. This is a free resource providing counseling, [...] Urine Bilirubin Dipstick: Negative mg/dL Urine Specific Woodman: 1.019 -- Normal range between ( 1.005 [...] was given the opportunity to ask questions. Patient/Primary Care Coordinator Name: Patient/Primary Care Coordinator Signature: Relationship to Patient: Clinician/Hospital Primary Care Coordinator Signature: Date: documented in this encounter Plan of Treatment Not on file documented as of this encounter Visit Diagnoses Not on filedocumented in this encounter Care Teams Laborer Demolition Relationship Specialty Start Date End Date Sandro Sebastian [address] [address] PCP - General 11/01/22 documented as of this encounter
--- OUTSIDE RECORDS SUMMARY | 2025-09-10 23:51 | XMS_ITS | Data Portability ---
Author Organization Count includes the [facility] Address [address] [place] [address] Assessment No assessment recorded. Plan of Treatment Reminders Order Date Submit Date Provider Last Modified By Organization Details Last Modified Time Details Appointments None recorded. Lab vaginal pathogens panel, SO+probe, vaginal fluid 2021 022 [facility], [address], [address], [place], [address], 2 03:07:40 culture, urine 2021 022 [facility], [address], [place], [place], [address], 2 03:07:40 urinalysis , dipstick 2021 022 clarita [facility] [employer], [address] [place] [address] , [place], [address], 2 15:49:31 Referral None recorded. Procedures None recorded. Surgeries None recorded. Imaging MAMMO, diagnostic , digital, bilateral 2021 022 [facility] (Scheduling), [address] [place], [address], 2 15:01:21 US, breast, bilateral 2021 023 [facility] (Scheduling), [address] [place], [address], 3 05:01:50 Medication Orders None recorded. Patient TargetsNo targets recorded. Patient Instructions Encounter Date Encounter Id Patient Instructions Last Modified By Organization Details Last Modified Time 04/16/2022 [id number] medical record request* - please send pts Ceramic Restorer and Ob records Not available 05/28/2022 10:43:04 painful urinatio n (dysuria): care instructions clarita Not available 04/16/2022 17:48:35 Reason for Referral None Reported. Results Created Date Observation Date Name Description Value Unit Range Abnormal Flag Note LastModifiedBy Organization Detail LastModifiedTime 04/16/20 22 04/17/2022 NUA B VAGIN ITIS PLUS (VG+) atopobium vaginae Low - 0 score Not Available [facility] ([facility]) [address] [facility], [place], [address], 04/18/2022 03:07:39 04/16/20 22 04/17/2022 [facility] B VAGIN ITIS PLUS (VG+) bvab 2 Low - 0 score Not Available [facility] ([facility]) [address] [facility], [place], [address], 04/18/2022 03:07:39 04/16/20 22 04/17/[facility]+) megasphaera [...] Drug Admin istra tion. Not Available [facility] ([facility]) [address] [facility], [place], [address], 04/18/2022 03:07:39 04/16/20 22 04/17/2022 NUSWA B VAGIN ITIS PLUS (VG+) shira albicans, SO Negati ve negati ve Not Available [facility] ([facility]) [address] [facility], [place], [address], 04/18/2022 03:07:39 04/16/20 22 04/17/2022 NUSWA B VAGIN ITIS PLUS (VG+) shira glabrata, SO Negati ve negati ve Not Available [facility] ([facility]) [address] [facility], [place], [address], 04/18/2022 03:07:39 04/16/20 22 04/18/2022 NUSWA B VAGIN ITIS PLUS (VG+) trich vag by SO Negati ve negati ve Not Available [facility] ([facility]) [address] [facility], [place], [address], 04/18/2022 03:07:39 04/16/20 22 04/18/2022 NUSWA B VAGIN ITIS PLUS (VG+) chlamydia trachomatis, SO Negati ve negati ve Not Available [facility] ([facility]) [address] [facility], [place], [address], 04/18/2022 03:07:39 04/16/20 22 04/18/2022 NUSWA B VAGIN ITIS PLUS (VG+) neisseria gonorrhoeae, SO Negati ve negati ve Not Available [facility] ([facility]) [address] [facility], [place], [address], 04/18/2022 03:07:39 04/16/20 22 04/17/2022 URINE CULTU RE, ROUTI NE urine culture, routine Final report Not Available [facility] ([facility]) [address] [place], [address], 04/18/2022 03:07:40 04/16/20 22 04/17/2022 URINE CULTU RE, ROUTI NE result 1 No growth Not Available [facility] ([facility]) [address] [facility], [place], [address], 04/18/2022 03:07:40 04/16/20 22 04/16/2022 urina lysis , dipst ick Leukocytes Negati ve Not Available [facility] [employer] [address] [place] [address] , [place], [address], 04/16/2022 15:52:56 04/16/20 22 04/16/2022 urina lysis , dipst ick Nitrite negati ve Not Available [facility]/[address] , [place], [address], 04/16/2022 15:52:56 04/16/20 22 04/16/2022 urina lysis , dipst ick Urobilinogen 1 Not Available [facility] [employer] [address] [place] [address] , [place], [address], 04/16/2022 15:52:56 04/16/20 22 04/16/2022 urina lysis , dipst ick Protein Negati ve Not Available [facility]Gyn [address] [place] [address] , [place], [address], 04/16/2022 15:52:56 04/16/20 22 04/16/2022 urina lysis , dipst ick pH 7.0 Not Available [facility]/[address] , [place], [address], 04/16/2022 15:52:56 04/16/20 22 04/16/2022 urina lysis , dipst ick Blood Negati ve Not Available [facility] [address] [place] [address] , [place], [address], 04/16/2022 15:52:56 04/16/20 22 04/16/2022 urina lysis , dipst ick Specific Jessie 1.010 Not Available [facility] [employer] [address] [place] [address] , [place], [address], 04/16/2022 15:52:56 04/16/20 22 04/16/2022 urina lysis , dipst ick Ketone Negati ve Not Available [facility] [employer] [address] [place] [address] , [place], [address], 04/16/2022 15:52:56 04/16/20 22 04/16/2022 urina lysis , dipst ick Bilirubin Negati ve Not Available [facility] [address] [place] [address] , [place], [address], 04/16/2022 15:52:56 04/16/20 22 04/16/2022 urina lysis , dipst ick Glucose Negati ve Not Available [facility] [address] [place] [address] , [place], [address], 04/16/2022 15:52:56 04/16/20 22 04/16/2022 urina lysis , dipst ick Appearance Slight ly Cloudy Not Available [facility] [address] [place] [address] , [place], [address], 04/16/2022 15:52:56 04/16/20 22 04/16/2022 urina lysis , dipst ick Color Pale Yellow Not Available [facility] [employer] [address] [place] [address] , [place], [address], 04/16/2022 15:52:56 05/04/20 22 05/03/2022 MAMMO , diagn ostic , digit al, bilat eral No observ ation record ed. [facility] (Radiology) [address] [place], [address], 05/08/2022 14:51:58 05/07/20 22 05/03/2022 , deloris rojas No observ ation record ed. [facility] (Radiology) [address] [place], [address], 05/08/2022 14:51:59 Result Notes None recorded. Problems No Known Problems Procedures Surgical History Date Name Laterality Status Provider Name and Address Organization Details Recorded Time Date of Last Pap Smear completed [facility] 10/10/2022 16:03:01 extraction of wisdom tooth completed [facility] 04/16/2022 15:00:12 Unlisted px dentalvlr strux completed [facility] 04/16/20 15:00:22 lumpectomy of breast completed [facility] 04/16/2022 15:00:35 kidney stone analysis completed [facility] 04/16/2022 15:00:47 Imaging Results None recorded. Procedure Notes None recorded. Medical Equipment None Reported. Allergies Allergen ID Allergen Name Allergen Category Reaction Reaction Severity Criticality Documentation Date Start Date Code Code System Note Provider Name and Address Organization Details Recorded Time 917144 Product containin g penicilli n (product) medicatio n hives mild low 04/16/2022 [address] [facility] 2 14:51:19 Medications Name Sig Start Date [...] completed Not Available Not Available Not Available [facility] Digestive [facility] 10 billion cell-200 mg capsule TAKE 1 CAPSULE BY MOUTH EVERY MORNING 04/16 completed Not Available Not Available Not Available Vitals Date Recorded Body weight Pain severity - 0-10 verbal numeric rating [Score] - Reported Body mass index (BMI) Body height Systolic And Diastolic Provider Name and Address Organization Details Last Updated DateTime 04/16/2022 85348.3 g 0 29.4 kg/m2 162.56 cm 112/68 [...] ICD10 Code Diagnosis IMO Codes Diagnosis Note [id number] DO Sanya Ayala SUPPORT ARCHITECT 7 [facility] L[place]IA [place] [address] 04/16/2022 14:33:42 04/16/2022 15:47:31 Patient medical record not available [id number] Z76.89 Vaginal discharge 604891 006 N89.8 Dysuria 71810742 R30.9 Vaginal odor 318848613 N 89.8 Mass of right breast 551 [id number] 2863295 N63.10 suspect fibroadeno ma Health Concerns Section Related Observation LastModified by Organization Detai ls LastModified Time None Recorded Concern Status LastModified by Organization Details LastModified Time None Recorded Advance Directives Directive None Recorded Payers Insurance Date Sequence Insurance Name Policy Number Policy Alcantara Covered Member ID Alcantara Member ID Guarantor Name 04/23/2022 1 [place] [id number] Alysa Mancini [id number] Alysa Mancini Notes Date Note Type [...] an issue for a long time. Seeing network support engineer form [facility] 13yo then after having children had irregular period. Nexplanon placed in May 2021 - had it removed in January 2022. Will continue to monitor. 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 Seeing a new counselor at [place]. Part of an IOP through [facility]. Has complicated mental health history - major depressive disorder, anxiety, borderline personality disorder, possibly bipolar. 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 Reports having [...] and Propanolol. Dr. Sung Sebastian - in [place] - is primary care physician. >25 minutes visits with >75% face to face interview. Nevaeh Rajan, DO [address], [place], [address], [place] - [facility] 04/19/2022 15:54:27 OBGyn Episode Ob Episode Information Episode Created Date Number of Fetuses Patient Bloodtype Patient rh Status Prepregnancy Weight lbs Domestic Partner Domestic Partner Phone Father Name Fiberglass Machine Operator Status 10/04/19 23 1 CLOSED Fetus Data First Name Last Name Admitted to NICU Weight (g) Sex Living Outcome Pediatric Complications Fetus ID Race Codes Race Delivery [place] [id number] Vaginal Bran Calculation Initial Bran Date Initial [...] Comments 1 Regional- idural 37 [facility]born at [facility] no repair needed. Arrived c/o DFM Discharge Information Feeding Method Contraceptive Method Maternal HG B and HCT Levels
--- OUTSIDE RECORDS SUMMARY | 2025-09-10 23:51 | XMS_ITS | Encounter Summary ---
Author Organization [facility] ([place], [place], [place], [place], [place]) Address [address] [place] [address] Care Team Providers Care Upper Cutter Machine Name Role Phone Sandro Sebastian Primary Care Provider Unavailabl e Encounter Details Date Type Department Care Team (Late st Contact Info) Description 03/29/2021 Transcribed Document [facility] Family Medicine [address] [place] [address] ProviderMahi MD [address] [place] [address] Social History Tobacco Use Types Packs/Day Years [...] on filedocumented in this encounter Care Teams Upper Cutter Machine Relationship Specialty Start Date End Date Sandro Sebastian [address] [place] [address] PCP - General 11/01/22 documented as of this encounter
[2025-09-11] VITALS (7 sets, daily range): BP systolic 102–124; BP diastolic 65–82; PULSE 68–79; RESP 14–20; TEMP 36.4–36.6; O2SAT 95–98; BMI 22.6
[2025-09-11 00:05] LABS: Microscopic, Urine URINE MICROSCOPIC (MICROSCOPIC)
[2025-09-11 00:09] LABS: Hematocrit 40.0 % (37.0-47.0); Hemoglobin 13.5 g/dL (12.2-16.2); Immature Granulocytes % 0.1 %; Mean Corpuscular HGB Conc 33.8 g/dL (31.8-35.4); Mean Corpuscular Hemoglobin 28.4 pg (27.0-31.2); Mean Corpuscular Volume 84.0 fl (81-99); Nucleated Red Blood Cells % 0 %; Platelet Count 253 K/mm3 (142-424); Red Blood Count 4.76 M/mm3 (4.20-5.40); Red Cell Distribution Width-SD 36.8 fL; White Blood Count 6.9 K/mm3 (4.8-10.8)
[2025-09-11 00:16] LABS: Alanine Aminotransferase 21 U/L (12-78); Albumin Level 4.1 g/dl (3.5-5.0); Albumin/Globulin Ratio 1.6 (1.1-1.8); Alkaline Phosphatase 49 U/L (38-126); Anion Gap 10.7 mEq/L (5-15); Aspartate Amino Transferase 26 U/L (14-36); Bilirubin,Total 0.6 mg/dl (0.2-1.3); Blood Urea Nitrogen 13 mg/dl (7-17); Calcium 8.8 mg/dl (8.4-10.2); Carbon Dioxide 22 mmol/L (22.0-30.0); Chloride 107 mmol/L (98-107); Creatinine Clearance Estimated 73 mL/min (50-200); Creatinine,Serum 1.00 mg/dl (0.52-1.04); Estimated Glomerular Filt Rate 62 ml/min (>60); GFR (African American) 75 ML/MIN (>60); Globulin 2.6 g/dL (1.3-3.2); Glucose 108 mg/dl (74-100); Potassium 3.7 mmoL/L (3.5-5.1); Sodium 136 mmol/L (136-145); Total Protein,Serum 6.7 g/dl (6.3-8.2)
[2025-09-11] MEDS: MORPHINE 4MG/ML SYRINGE 4 MG IV ×2 (00:24→01:57)
[2025-09-11] MEDS: PROMETHAZINE HCL 25MG/ML 1ML VIAL 12.5 MG IV ×2 (00:24→01:58)
[2025-09-11] MEDS: SODIUM CHLORIDE 0.9% 25ML BAG 25 ML IV ×2 (00:25→01:58)
[2025-09-11 00:26] LABS: Lipase 52 U/L (23-300)
[2025-09-11 00:36] LABS: Bilirubin,Urine Negative (Negative); Color,Urine YELLOW (Yellow); Glucose,Urine (UA) 3+ (Negative); Ketones,Urine Negative (Negative); Leukocyte Esterase,Urine Negative (Negative); PH,Urine 6.0 (5.0-8.5); Protein,Urine Negative (Negative); Specific Gravity, Urine >= 1.030 (1.005-1.030); Urobilinogen,Urine 0.2 EU/dl (0.2)
[2025-09-11 00:43] LABS: HCG Qualitative, Serum Negative (Negative)
[2025-09-11 00:58] LABS: Bacteria,Urine 1+ /lpf
[2025-09-11 01:00] LABS: Calcium Oxalate Crystals,Urine 2+ /lpf
[2025-09-11] MEDS: SODIUM CHLORIDE 0.9% 10ML SYR (RAD ONLY) 10 ML IV (01:00)
[2025-09-11] MEDS: IOPAMIDOL-370 (76%);100ML BOTTLE 75 ML IV (01:00)
--- NOTE | 2025-09-11 01:38 | [facility].EDGENADL ---
Discharge Plan Disposition Patient Disposition: Home, Self-Care Condition: Good Prescriptions Prescriptions: New promethazine 12.5 mg tablet 12.5 mg PO Q6H PRN (Reason: nausea) Qty: 14 0RF No Action hydroxyzine HCl 50 mg tablet 100 mg PO TIDP PRN (Reason: Anxiety) Patient Comments: TAKE 1 TO 2 TABLETS 3 TIMES EACH DAY NEEDED FOR ANXIETY buspirone 30 mg tablet 30 mg PO BID Patient Comments: TAKE 1 TABLET 2 TIMES EACH DAY lorazepam 1 mg tablet 1 mg PO TIDP PRN (Reason: Anxiety) loratadine [Allergy Relief (loratadine)] 10 mg tablet 10 mg PO DAILY glycopyrrolate 2 mg tablet 2 mg PO BID nadolol 20 mg tablet 10 mg PO DAILY Qty: 30 5RF trazodone 100 mg tablet 100 mg PO HS prucalopride 2 mg tablet 2 mg PO DAILY Qty: 30 12RF ferrous sulfate [FeroSul] 325 mg (65 mg iron) tablet 325 mg PO DAILY Jardiance 10 mg tablet 10 mg PO DAILY nitrofurantoin monohyd/m-cryst [Macrobid] 100 mg capsule 100 mg PO HS Rx Instructions: must administer with a meal/food Xarelto 20 mg tablet 20 mg PO QPMWITHMEAL Rx Instructions: must administer with evening meal famotidine 20 mg Tablet 40 mg PO BID 30 Days Qty: 120 0RF dicyclomine 10 mg Capsule 20 mg PO BID Qty: 30 0RF Creon 36,000-114,000- 180,000 unit Capsule,Delayed Release(Dr/Ec) 2 cap PO AC 30 Days Qty: 180 0RF vancomycin [Firvanq] 50 mg/mL Recon Soln 125 mg PO QID 9 Days Qty: 90 0RF simethicone [Gas Relief 80 (simethicone)] 80 mg Tablet,Chewable 80 mg PO Q6H PRN (Reason: Abdominal Discomfort) Qty: 30 0RF Auvelity 45-105 mg tablet, IR and ER, biphasic 1 tab PO BID gabapentin 100 mg capsule 100 mg PO BID Referrals Follow up/Referrals: Arvind Yu MD [Primary Care Provider, Internal Medicine] - See instructions Activity Restrictions/Add. Instructions Additional Instructions/Restrictions: You were evaluated in the ER and are believed to be appropriate for discharge at this time. Take the prescribed Phenergan (promethazine) if needed for nausea. Follow-up with your primary care doctor on Saturday for reevaluation. Please call GI first thing Saturday morning and make an appointment for immediate reevaluation as well. Return to the ER with any new, worsening, or otherwise concerning symptoms. Clinical Impressions Clinical Impression: Colitis, Acute gastroenteropathy due to Norovirus Instructions Patient Instructions: DI for Acute Abdominal Pain Print Language Print Language: Swedish Discharge ED Provider: Lindy Montero General Adult HPI General Chief complaint: Abdominal Pain Stated complaint: abdominal pain, c dif, diarrhea Time Seen by Provider: 09/10/25 23:44 Mode of Arrival: Ambulatory Source of Information: Patient Description of Symptoms (Recalled from ER Triage Doc. by RN): pt reports tonight after eating she had increased abdominal pain after eating, and she noticed more watery diarrhea that has a CDIFF smell again. pt reports she was diagnosed with CDIFF 3 weeks ago when she had a scope and was treated with vanc that she finished 1 week ago. pt reports she has had ongoing stomach issues for approximately 6 months and has been seen for this. History of Present Illness HPI narrative: 39-year-old female presents to the ER complaining of abdominal pain, cramping, and florid watery diarrhea. Patient states approximately 1 week ago she finished her course of vancomycin for C. difficile. She states she has had ongoing stomach issues for months and has been seen by GI with multiple workups. She states she is taking multiple antiacids but a few weeks ago was diagnosed with C. difficile, treated with vancomycin. All of her symptoms had resolved until tonight when she started having cramping and C. difficile smell again with diarrhea. She is worried about her gallbladder but states her pain is in the center and left side of her stomach. She denies vomiting but has nausea. Denies numbness, tingling, or weakness. Denies headache or dizziness. Denies fevers or chills. Patient reports she took Zofran prior to arrival without significant alleviation of symptoms. She is requesting something for the stomach pain and nausea. Related Data Home Medications ?Medication ?Instructions ?Recorded ?Confirmed loratadine 10 mg tablet (Allergy 10 mg PO DAILY 05/05/21 08/20/25 Relief (loratadine)) buspirone 30 mg tablet 30 mg PO BID 09/13/23 08/20/25 hydroxyzine HCl 50 mg tablet 100 mg PO TIDP PRN Anxiety 09/13/23 08/20/25 lorazepam 1 mg tablet 1 mg PO TIDP PRN Anxiety 09/13/23 08/20/25 dextromethorphan IR 45 1 tab PO BID 12/24/24 08/20/25 mg-bupropion ER 105 mg biphasic tablet (Auvelity) glycopyrrolate 2 mg tablet 2 mg PO BID 01/21/25 08/20/25 gabapentin 100 mg capsule 100 mg PO BID 06/01/25 08/20/25 Held on 08/23/25. Instructions: Resume on 09/06/25. You are doing well without restarting this medication during her hospitalization. This medication can cause constipation, consider discontinuing if not needed. trazodone 100 mg tablet 100 mg PO HS 06/01/25 08/20/25 ferrous sulfate 325 mg (65 mg 325 mg PO DAILY 08/02/25 08/20/25 iron) tablet (FeroSul) empagliflozin 10 mg tablet 10 mg PO DAILY 08/21/25 08/21/25 (Jardiance) nitrofurantoin 100 mg PO HS 08/21/25 08/21/25 monohydrate/macrocrystals 100 mg capsule (Macrobid) rivaroxaban 20 mg tablet (Xarelto) 20 mg PO QPMWITHMEAL 08/21/25 08/21/25 Previous Rx's ?Medication ?Instructions ?Recorded nadolol 20 mg tablet 10 mg (1/2 x 20 mg) PO DAILY #30 04/12/25 tabs prucalopride 2 mg tablet 2 mg PO DAILY #30 tabs 06/01/25 dicyclomine 10 mg capsule 20 mg (2 x 10 mg) PO BID #30 caps 08/23/25 famotidine 20 mg tablet 40 mg (2 x 20 mg) PO BID 30 days 08/23/25 #120 tabs [id number] 2 cap PO AC 30 days #180 caps 08/23/25 (pork)36,000-114,000-180k unit capsule,del rel (Creon) simethicone 80 mg chewable tablet 80 mg PO Q6H PRN Abdominal 08/23/25 (Gas Relief 80 (simethicone)) Discomfort #30 tabs vancomycin 50 mg/mL oral solution 125 mg (2.5 mL) PO QID 9 days #90 08/23/25 (Firvanq) mL promethazine 12.5 mg tablet 12.5 mg PO Q6H PRN nausea #14 tabs 09/11/25 Allergies Allergy/AdvReac Type Severity Reaction Status Date / Time Penicillins Allergy Intermediate Rash Verified 08/02/25 13:38 [facility] Disclaimer: The information contained in this section may have been updated after the patient was seen, as this information can be updated by other users. Medical History (Updated 09/11/25 @ 05:06 by Lindy Montero MD) Afib PAF (paroxysmal atrial fibrillation) Constipation Gestational diabetes SVT (supraventricular tachycardia) History of pacemaker NYHA class 3 systolic congestive heart failure with reduced left ventricular function NYHA class 2 heart failure with reduced ejection fraction High pulmonary arterial pressure Hypotension Syncope Elevated serum creatinine Creatinine elevation Kidney stone Family history of ischemic heart disease (IHD) Umbilical hernia Surgical History History of bladder surgery History of renal stent History of oral surgery History of breast biopsy Family History Grandfather Family history of myocardial infarction Sister Family history of cancer Father Family history of cancer Social History Smoking Status: Unknown if ever smoked second hand exposure: No alcohol intake: former substance use type: denies use current occupational status: unemployed Travel in the last 8 weeks?: None household members: family housing: house marital status: current occupational exposures/hazards: No caffeine: Yes Do you have any weakness?: Yes Do you have any diarrhea?: Yes Do you have any abdominal pain?: Yes Other Medical History Have you received the Flu Vaccine for this season: No Have you received the Pneumonia Vaccine: No ROS Obtained: Yes Systems reviewed as appropriate & no additional complaints except as documented Per HPI Physical Exam General General appearance: alert and in no apparent distress Head Head exam: atraumatic and normocephalic Eye Eye exam: Present PERRL and EOMI ENT ENT exam: Present mucous membranes moist Neck Neck exam: Present normal inspection and full ROM Chest Chest inspection: Present symmetric chest wall rise Respiratory Respiratory exam: Present normal lung sounds bilaterally; Absent respiratory distress, wheezes or stridor Cardiovascular Cardiovascular exam: Present regular rate and normal rhythm Abdominal Exam Abdominal exam: Present soft and tenderness (Diffuse but worse in the epigastric and diffuse left abdomen); Absent distention, guarding, rebound or rigidity Extremities Exam Extremities exam: Present full ROM and normal capillary refill; Absent edema Neurological Exam Neurological exam: Present alert and oriented X3; Absent motor sensory deficit Psychiatric Psychiatric exam: Present normal affect and normal mood Skin Skin exam: Present warm and dry Medical Decision Making Medical Records Medical records reviewed: Yes I reviewed the patient's medical records. Screening: Per USPSTF and CDC recommendations, given the prevalence of disease in our region, it is our hospital?s policy to screen for HIV and viral Hepatitis for all patients aged 18 and over and those with ongoing risk factors. Jaime Inquiry Pt receiving controlled substance: No Vital Signs: 09/11/25 00:00 09/11/25 00:00 09/11/25 01:03 Temperature 97.5 F L Temperature Source Oral Pulse Rate 74 68 Pulse Rate [Right] 73 Respiratory Rate 20 Blood Pressure 117/73 107/65 L Blood Pressure [Right Arm] 124/82 Blood Pressure Mean Blood Pressure Mean [Right Arm] 96 Blood Pressure Source Blood Pressure Position 02 Sat by Pulse Oximetry 96 95 97 Oxygen Delivery Method Room Air 09/11/25 01:30 09/11/25 02:00 09/11/25 03:00 Temperature Temperature Source Pulse Rate 69 70 72 Pulse Rate [Right] Respiratory Rate Blood Pressure 105/66 L 107/66 L 102/67 L Blood Pressure [Right Arm] Blood Pressure Mean 79 75 77 Blood Pressure Mean [Right Arm] Blood Pressure Source Blood Pressure Position 02 Sat by Pulse Oximetry 98 96 97 Oxygen Delivery Method Room Air Room Air 09/11/25 03:30 09/11/25 04:05 Temperature 97.8 F Temperature Source Oral Pulse Rate 74 79 Pulse Rate [Right] Respiratory Rate 14 Blood Pressure 104/66 L 108/66 L Blood Pressure [Right Arm] Blood Pressure Mean 76 Blood Pressure Mean [Right Arm] Blood Pressure Source Automatic Cuff Blood Pressure Position Sitting 02 Sat by Pulse Oximetry Oxygen Delivery Method Room Air Lab Data Lab Results 09/10/25 23:54: WBC 6.9, RBC 4.76, Hgb 13.5, Hct 40.0, MCV 84.0, MCH 28.4, MCHC 33.8, RDW 12.1, Plt Count 253, MPV 9.7, Neut % (Auto) 45.9, Lymph % (Auto) 36.4, [place] % (Auto) 4.8, Eos % (Auto) 12.1 H, Baso % (Auto) 0.7, Neut # (Auto) 3.2, Lymph # (Auto) 2.5, [place] # (Auto) 0.3, Eos # (Auto) 0.8 H, Baso # (Auto) 0.1, Sodium 136, Potassium 3.7, Chloride 107, Carbon Dioxide 22, Anion Gap 10.7, BUN 13, Creatinine 1.00, Estimated Creat Clear 73, Estimated GFR 62, Est GFR ( Amer) 75, Glucose 108 H, Calcium 8.8, Total Bilirubin 0.6, AST 26, ALT 21, Alkaline Phosphatase 49, Total Protein 6.7, Albumin 4.1, Globulin 2.6, Albumin/Globulin Ratio 1.6, Lipase 52, Serum HCG, Qual Negative, Urine Color Yellow, Urine Appearance Clear, Urine pH 6.0, Ur Specific [place] >= 1.030, Urine Protein Negative, Urine Glucose (UA) 3+, Urine Ketones Negative, Urine Blood Negative, Urine Nitrate Negative, Urine Bilirubin Negative, Urine Urobilinogen 0.2, Ur Leukocyte Esterase Negative, Urine RBC None, Urine WBC 5-10, Ur Squamous Epith Cells 10-20, Calcium Oxalate Crystal 2+, Urine Bacteria 1+ 09/11/25 02:04: Stl C. cayetanensis PCR Not detected, Stool Rotavirus (PCR) Not detected, Stl Adenov F 40/41 PCR Not detected, Stool Astrovirus (PCR) Not detected, Stool Campylobacter PCR Not detected, Stl C.difficile Tox PCR Not detected, Stool Cryptosporidium PCR Not detected, Stl E.coli Shiga Tox PCR Not detected, Stool E coli O157 PCR Not detected, Stl Enterotoxigenic E PCR Not detected, Stool EPEC (PCR) Not detected, Stool EAEC (PCR) Not detected, Stl E. histolytica PCR Not detected, Stool Giardia Lamblia PCR Not detected, Stool Salmonella PCR Not detected, Stool Sapovirus (PCR) Not detected, Stl P. shigelloides PCR Not detected, Stl Shigella/EIEC PCR Not detected, St Y.enterocolitica PCR Not detected, Stool Vibrio (PCR) Not detected, Stl Vibrio cholerae PCR Not detected, Stl Norovirus GI/GII PCR Detected A 09/10/25 23:54 09/10/25 23:54 Orders (Tests/Meds): ED MEDICATIONS Discontinued Medications Generic Name Dose Route Start Last Admin Trade Name Freq PRN Reason Stop Dose Admin Belladonna Alkaloids 60 ml 09/11/25 01:45 09/11/25 01:58 Belladonna Alkaloids 60 Ml Ml PO 09/11/25 01:46 60 ml ONCE ONE Administration Dicyclomine HCl 10 mg 09/11/25 00:40 09/11/25 00:58 Dicyclomine 10mg Capsule PO 09/11/25 00:41 10 mg ONCE ONE Administration Iopamidol 75 ml 09/11/25 00:55 09/11/25 01:00 Iopamidol-370 (76%);100ml Bottle IV 09/11/25 00:56 75 ml ONCE ONE Administration Morphine Sulfate 4 mg 09/10/25 23:59 09/11/25 00:24 Morphine 4mg/Ml Syringe IV 09/11/25 00:00 4 mg ONCE ONE Administration Morphine Sulfate 4 mg 09/11/25 01:45 09/11/25 01:57 Morphine 4mg/Ml Syringe IV 09/11/25 01:46 4 mg ONCE ONE Administration Promethazine HCl 12.5 mg 09/10/25 23:59 09/11/25 00:24 Promethazine Hcl 25mg/Ml 1ml Vial IV 09/11/25 00:00 12.5 mg ONCE ONE Administration Promethazine HCl 12.5 mg 09/11/25 01:45 09/11/25 01:58 Promethazine Hcl 25mg/Ml 1ml Vial IV 09/11/25 01:46 12.5 mg ONCE ONE Administration Sodium Chloride 25 ml 09/10/25 23:59 09/11/25 00:25 Sodium Chloride 0.9% 25ml Bag IV 09/11/25 00:00 25 ml ONCE ONE Administration Sodium Chloride 10 ml 09/11/25 00:55 09/11/25 01:00 Sodium Chloride 0.9% 10ml Syr (Rad Only) IV 10/11/25 00:54 10 ml NEEDED PRN Administration Maintain IV Site Sodium Chloride 25 ml 09/11/25 01:45 09/11/25 01:58 Sodium Chloride 0.9% 25ml Bag IV 09/11/25 01:46 25 ml ONCE ONE Administration ORDERS Category Date Time Status CT abdomen pelvis w con Stat Cat Scan 09/10/25 23:46 Completed POCUS Point of Care (ER Only) Stat Exams 09/11/25 00:41 Completed CBC w/Auto Diff [Complete Blood Count Auto Diff] Stat Lab 09/10/25 23:54 Completed CMP [Comprehensive Metabolic Panel] Stat Lab 09/10/25 23:54 Completed Diarrhea 23 Panel, PCR Stat Lab 09/11/25 02:04 Completed HCG Qualitative, Serum Stat Lab 09/10/25 23:54 Completed Lipase Stat Lab 09/10/25 23:54 Completed Urinalysis and Microscopic Stat Lab 09/10/25 23:54 Completed Medical Decision Narrative: In summary, this 39-year-old female with comorbidities described in the HPI including recent C. difficile enteritis presents to the emergency department today with abdominal pain, nausea, diarrhea that is malodorous like her recent C. difficile infection. On initial evaluation patient is hemodynamically stable, afebrile, GCS 15, she has tenderness in the epigastric and left abdominal regions with no rebound or guarding, remainder of exam benign. Differential diagnosis includes but is not limited to C. difficile colitis, other infectious diarrhea, I considered pancreatitis, electrolyte abnormality, dehydration, urinary tract infection, colitis, toxic megacolon, among others. I have low suspicion for biliary colic but also considered this. I performed [id number] right upper quadrant ultrasound which did not demonstrate any abnormalities of the right upper quadrant, see procedure note for details. Based on these concerns, I ordered hematologic and serum labs, CT, UA, diarrhea panel, lipase. Patient received morphine, Phenergan initially for treatment as well as Bentyl. She had improvement of symptoms but not resolution. Additional morphine and Phenergan were administered as well as GI cocktail. Patient reports she had significant improvement with the second round of medications and stated the GI cocktail did offer some relief as well. She is already taking numerous antacid and other stomach medications that I am not going to make changes to at this time. Labs personally reviewed demonstrate no leukocytosis or anemia, normal platelets, CMP nonactionable, lipase normal at 52 reassuring against pancreatitis, UA negative for findings of infection though contaminated with squamous cells. hCG negative.. CT abdomen pelvis personally interpreted demonstrates findings of colitis but no other acute intra-abdominal pathology, see radiology read for final interpretation which comments on the presence of intrarenal kidney stones of which patient is already aware. Stable trace left pleural effusion versus pleural thickening. Patient provided stool sample but lab needed more, additional stool sample was provided. Stool panel will take an extensive amount of time to run. Patient has been here for over 4 hours and is currently asymptomatic at this time. I am going to discharge this patient and follow-up on her stool results. She understands that if she is positive for an analyte that requires treatment, I will send appropriate treatment to her pharmacy of choice which at this current time is [facility]. She is comfortable with this plan. I did send Phenergan to her pharmacy of choice for outpatient management of symptoms. She has follow-up with GI scheduled in 2 days which I instructed her to keep. She was given instructions on continued symptomatic monitoring and management, follow-up, and return precautions for the ER. She indicated understanding and the patient was discharged in stable condition. Stool panel resulted positive for norovirus, negative for all other analytes including C. difficile. I called the patient and updated her at 0500 this morning. After confirming her identity, I gave her the results and instructions on continued symptomatic monitoring and management, good hygiene, and ways to avoid spreading this illness to her family or others with which she comes in contact. She was grateful for this call. She was able to ask questions that were answered to her satisfaction. No change in management or new prescriptions at this time. Procedures Miscellaneous Procedure Procedure Performed: Limited RUQ ultrasound Performed by Lindy Montero MD Indication: Nausea, abdominal pain Identified structures: -Gallbladder -Gallbladder wall -Common bile duct -Liver Findings: Sonographic James sign: Absent Gallstones: Absent Sludge: Absent Pericholecystic fluid: Absent Maximal GB wall thickness (mm): Normal is </= 3mm 2.8 mm, normal Common bile duct width (mm): Normal is </= 6mm 4.8 mm, normal Gallbladder width (cm): Normal is < 4cm Normal Gallbladder length (cm): Normal is < 10cm Normal Impression: Normal gallbladder Images were saved to permanent archive The study was technically adequate CPT 92195-81 This study was performed by me, and I personally interpreted all images/videos. Based on my clinical judgement, these images were adequate and did not necessitate further imaging. Critical Care Critical Care Time Critical Care Time: No
[2025-09-11] MEDS: BELLADONNA ALKALOIDS 60 ML ML PO (01:58)
[2025-09-11 02:29] LABS: Adenovirus F 40/41, stool Not Detected (NotDetected); Clostridium Difficile A/B, PCR Not Detected (NotDetected); Cyclospora Cayetanesis Not Detected (NotDetected); Plesimonas Shigalloides, PCR Not Detected (NotDetected); Salmonella, PCR Not Detected (NotDetected); Shiga-like toxin E coli Not Detected (NotDetected); Shigella Enterovasive E coli Not Detected (NotDetected); Vibrio, PCR Not Detected (NotDetected); Yersinia Entercolitica, PCR Not Detected (NotDetected)
== END 2025-09-11 04:10 | disposition home or self-care (01) ==
PROVIDERS: Emergency Provider Emergency Medicine; PCP Family Medicine
DX: K52.9 Noninfective gastroenteritis and colitis, unspecified (principal); A08.11 Acute gastroenteropathy due to Norwalk agent; Z88.0 Allergy status to penicillin
CPT/HCPCS: 74177; 80053; 81001; 83690; 84703; 85025; 87507; 96374; 96375; 96376; 99285; J2270; J2550; Q9967